=== PATIENT | male | born 1955 | race Caucasian/White ===

== ENCOUNTER 2018-03-09 11:54 | Inpatient (IN) ==
[2018-03-09] MEDS ORDERED: FUROSEMIDE 40 MG/4 ML VIAL IV ONE ×2 (12:07→13:18)
--- NOTE | 2018-03-09 12:10 | Emergency Department Note ---
SOB HPI - General Chief Complaint: Shortness of Breath/Dyspnea Stated Complaint: shortness of breath, CHF Time Seen by Provider: 03/09/18 12:07 Source: patient Mode of arrival: ambulatory Limitations: no limitations - History of Present Illness This patient returns emergency room. He was her yes day and we wanted to admit him for heart failure but he refused because he did not want to get IV Lasix without a Mayo catheter. He is now willing to be admitted if we will put a Mayo catheter in. He was at the [place] clinic this morning the [place] doctor was concerned that he should be admitted and the patient agreed to it. He continues to be short of breath. He has had approximately a 35 pound weight gain in the last couple of months. He also has a wound in his right foot that wound care as attending to. No recent chest pain. - Related Data Home Medications Medication Instructions Recorded Confirmed Ferrous Sulfate [Iron] 325 mg PO DAILY 03/08/18 03/09/18 Insulin Glargine, Human [Lantus] 60 unit SQ DAILY 03/08/18 03/09/18 Linezolid 600 mg PO DAILY 03/08/18 03/09/18 Loperamide [Imodium] 2 mg PO PRN PRN 03/08/18 03/09/18 Tamsulosin [Flomax] 0.4 mg PO HS 03/08/18 03/09/18 Torsemide 100 mg PO DAILY 03/08/18 03/09/18 Warfarin [Coumadin] 5 mg PO DAILY 03/08/18 03/09/18 metFORMIN HCL [Metformin HCl] 1,000 mg PO HS 03/08/18 03/09/18 Previous Rx's Medication Instructions Recorded doxycycline hyclate 100 mg tablet 100 mg PO BID #120 tab 03/09/18 Allergies Allergy/AdvReac Type Severity Reaction Status Date / Time No Known Drug Allergies Allergy Verified 03/09/18 11:57 Review of Systems All systems ED: reviewed and negative except as stated. Past Medical History - Past Medical History PMF Narrative: Past Surgical History (Last Reviewed 02/16/18 @ 08:23 by Mariama Larkin RN) History of total replacement of right ankle (Chronic) History of orthopedic surgery (Chronic) History of open reduction and internal fixation (ORIF) procedure (Chronic) History of partial colectomy (Chronic) Past Surgical History (Last Reviewed 02/16/18 @ 08:23 by Mariama Larkin RN) History of total replacement of right ankle (Chronic) History of orthopedic surgery (Chronic) History of open reduction and internal fixation (ORIF) procedure (Chronic) History of partial colectomy (Chronic) Family History (Last Reviewed 02/16/18 @ 08:23 by Mariama Larkin RN) Mother Bruising Bleeding Clotting disorder Father Prostate cancer Medical history: Reports: CHF, DM, hypertension Surgical history ED: Reports: other (right ankle surgery) - Social History smoking status: Never smoker Alcohol use: Reports: None Drug use: Reports: none Physical Exam Limitations: no limitations General appearance: alert Head: atraumatic Eye: Present: normal appearance ENT: normal exam Neck: Present: normal inspection Respiratory: Present: rales/crackles Cardiovascular: Present: regular rate, normal rhythm, normal heart sounds Abdominal: Present: soft. Absent: distention, tenderness Extremities: Present: pedal edema, pretibial edema Neurological: Present: alert Psychiatric: Present: normal affect, normal mood Skin: Present: warm, dry, intact Course Vital Signs Respiratory Rate 24 H 03/09/18 11:54 Pulse Rate 92 H 03/09/18 14:01 Respiratory Rate 19 03/09/18 14:01 Blood Pressure 168/96 03/09/18 14:01 Pulse Oximetry (%) 100 03/09/18 14:01 Shortness of Breath/Dyspnea - [facility] Narrative Medical decision making narrative: We gave the patient 40 mg of IV Lasix twice and then inserted a Mayo catheter. He did have some diuresis. He will be admitted to the hospital by Dr. Estrada - Lab Data Lab results reviewed: Yes I reviewed the patient's lab results. Result diagrams: 03/09/18 12:13 03/09/18 12:12 Lab Results 03/09/18 03/09/18 03/09/18 Range/Units 12:08 12:12 12:12 WBC (4.5-11.0) K/mcL RBC (4.50-5.90) M/mcL Hgb (13.5-16.5) g/dL Hct (41.0-55.0) % MCV (80.0-100.0) fL MCH (26.0-34.0) pg MCHC (31.0-36.0) g/dL RDW (11.5-14.5) % Plt Count (140-440) K/mcL MPV (7.4-10.4) fL Gran % (38.0-78.0) % Lymph % (Auto) (15.5-49.0) % [place] % (Auto) (1.0-12.0) % Eos % (Auto) (0.0-7.0) % Baso % (Auto) (0.0-2.0) % Gran # (1.8-8.0) K/mcL Lymph # (Auto) (1.5-4.8) K/mcL [place] # (Auto) (0.1-0.9) K/mcL Eos # (Auto) (0.0-0.7) K/mcL Baso # (Auto) (0.0-0.3) K/mcL PT (11.9-14.5) sec INR (0.9-1.1) Sodium 145 (133-145) mmol/L Potassium 3.7 (3.3-5.1) mmol/L Chloride 104 (96-108) mmol/L Carbon Dioxide 29 (22-30) mmol/L Anion Gap 12.0 (8-16) BUN 17 (8-23) mg/dl Creatinine 1.4 H (0.7-1.2) mg/dl GFR Calculation 53 Glucose 137 H (70-105) mg/dL Calcium 8.6 (8.6-10.4) mg/dl Total Bilirubin 0.3 (0.0-1.0) mg/dL AST 22 (0-37) U/l ALT 13 (0-40) U/l Alkaline Phosphatase 137 H (39-117) U/L Troponin T 0.02 (0-0.03) ng/ml NT-Pro-B Natriuret Pep 22244.0 H (0-125) pg/ml Total Protein 7.3 (5.9-8.4) gm/dL Albumin 3.0 L (3.2-5.2) gm/dL Globulin 4.3 H (2.2-3.7) gm/dL Albumin/Globulin Ratio 0.7 L (1.0-2.3) Procalcitonin (<0.10) ng/mL TSH 4.04 (0.27-5.01) uIU/ml Urine Color Urine Appearance Urine pH (5.0-9.0) Ur Specific [place] (1.000-1.035) Urine Protein (NEG) mg/dL Urine Glucose (UA) (NEG) mg/dL Urine Ketones (NEG) mg/dL Urine Occult Blood (<0.03) mg/dL Urine Nitrate (NEG) Urine Bilirubin (NEG) mg/dL Urine Urobilinogen (NEG) mg/dL Ur Leukocyte Esterase (NEG) /uL Urine RBC (0-1) /hpf Urine WBC (0-4) /hpf Ur Squamous Epith Cells (0-4) /hpf Urine Bacteria (0) /hpf Hyaline Casts (0-2) /lpf Urine Mucus (0) /hpf Ur Culture Indicated? 03/09/18 03/09/18 03/09/18 Range/Units 12:12 12:12 12:13 WBC 8.3 (4.5-11.0) K/mcL RBC 3.57 L (4.50-5.90) M/mcL Hgb 9.5 L (13.5-16.5) g/dL Hct 29.4 L (41.0-55.0) % MCV 82.2 (80.0-100.0) fL MCH 26.6 (26.0-34.0) pg MCHC 32.4 (31.0-36.0) g/dL RDW 18.1 H (11.5-14.5) % Plt Count 222 (140-440) K/mcL MPV 7.8 (7.4-10.4) fL Gran % 78.1 H (38.0-78.0) % Lymph % (Auto) 12.7 L (15.5-49.0) % [place] % (Auto) 7.1 (1.0-12.0) % Eos % (Auto) 1.7 (0.0-7.0) % Baso % (Auto) 0.4 (0.0-2.0) % Gran # 6.5 (1.8-8.0) K/mcL Lymph # (Auto) 1.1 L (1.5-4.8) K/mcL [place] # (Auto) 0.6 (0.1-0.9) K/mcL Eos # (Auto) 0.1 (0.0-0.7) K/mcL Baso # (Auto) 0 (0.0-0.3) K/mcL PT 29.6 H (11.9-14.5) sec INR 2.8 H (0.9-1.1) Sodium (133-145) mmol/L Potassium (3.3-5.1) mmol/L Chloride (96-108) mmol/L Carbon Dioxide (22-30) mmol/L Anion Gap (8-16) BUN (8-23) mg/dl Creatinine (0.7-1.2) mg/dl GFR Calculation Glucose (70-105) mg/dL Calcium (8.6-10.4) mg/dl Total Bilirubin (0.0-1.0) mg/dL AST (0-37) U/l ALT (0-40) U/l Alkaline Phosphatase (39-117) U/L Troponin T (0-0.03) ng/ml NT-Pro-B Natriuret Pep (0-125) pg/ml Total Protein (5.9-8.4) gm/dL Albumin (3.2-5.2) gm/dL Globulin (2.2-3.7) gm/dL Albumin/Globulin Ratio (1.0-2.3) Procalcitonin 0.11 (<0.10) ng/mL TSH (0.27-5.01) uIU/ml Urine Color Urine Appearance Urine pH (5.0-9.0) Ur Specific [place] (1.000-1.035) Urine Protein (NEG) mg/dL Urine Glucose (UA) (NEG) mg/dL Urine Ketones (NEG) mg/dL Urine Occult Blood (<0.03) mg/dL Urine Nitrate (NEG) Urine Bilirubin (NEG) mg/dL Urine Urobilinogen (NEG) mg/dL Ur Leukocyte Esterase (NEG) /uL Urine RBC (0-1) /hpf Urine WBC (0-4) /hpf Ur Squamous Epith Cells (0-4) /hpf Urine Bacteria (0) /hpf Hyaline Casts (0-2) /lpf Urine Mucus (0) /hpf Ur Culture Indicated? 03/09/18 Range/Units 12:50 WBC (4.5-11.0) K/mcL RBC (4.50-5.90) M/mcL Hgb (13.5-16.5) g/dL Hct (41.0-55.0) % MCV (80.0-100.0) fL MCH (26.0-34.0) pg MCHC (31.0-36.0) g/dL RDW (11.5-14.5) % Plt Count (140-440) K/mcL MPV (7.4-10.4) fL Gran % (38.0-78.0) % Lymph % (Auto) (15.5-49.0) % [place] % (Auto) (1.0-12.0) % Eos % (Auto) (0.0-7.0) % Baso % (Auto) (0.0-2.0) % Gran # (1.8-8.0) K/mcL Lymph # (Auto) (1.5-4.8) K/mcL [place] # (Auto) (0.1-0.9) K/mcL Eos # (Auto) (0.0-0.7) K/mcL Baso # (Auto) (0.0-0.3) K/mcL PT (11.9-14.5) sec INR (0.9-1.1) Sodium (133-145) mmol/L Potassium (3.3-5.1) mmol/L Chloride (96-108) mmol/L Carbon Dioxide (22-30) mmol/L Anion Gap (8-16) BUN (8-23) mg/dl Creatinine (0.7-1.2) mg/dl GFR Calculation Glucose (70-105) mg/dL Calcium (8.6-10.4) mg/dl Total Bilirubin (0.0-1.0) mg/dL AST (0-37) U/l ALT (0-40) U/l Alkaline Phosphatase (39-117) U/L Troponin T (0-0.03) ng/ml NT-Pro-B Natriuret Pep (0-125) pg/ml Total Protein (5.9-8.4) gm/dL Albumin (3.2-5.2) gm/dL Globulin (2.2-3.7) gm/dL Albumin/Globulin Ratio (1.0-2.3) Procalcitonin (<0.10) ng/mL TSH (0.27-5.01) uIU/ml Urine Color Yellow Urine Appearance Clear Urine pH 5.0 (5.0-9.0) Ur Specific [place] 1.025 (1.000-1.035) Urine Protein >=500 A (NEG) mg/dL Urine Glucose (UA) Negative (NEG) mg/dL Urine Ketones Neg (NEG) mg/dL Urine Occult Blood Neg (<0.03) mg/dL Urine Nitrate Neg (NEG) Urine Bilirubin Neg (NEG) mg/dL Urine Urobilinogen Neg (NEG) mg/dL Ur Leukocyte Esterase Neg (NEG) /uL Urine RBC 0 (0-1) /hpf Urine WBC 3 (0-4) /hpf Ur Squamous Epith Cells 0 (0-4) /hpf Urine Bacteria 0 (0) /hpf Hyaline Casts 13 H (0-2) /lpf Urine Mucus Few (0) /hpf Ur Culture Indicated? No - Radiology Data Radiology results reviewed: Yes I reviewed the patient's radiology results. Disposition Pt seen by [facility] [employer]/PA only: No Clinical Impression: Congestive heart failure Disposition: Xfer As Inpt ([facility]) Condition: Good Referrals: Rivera Mcintosh Jr, MD [Primary Care Provider] - Time of Disposition: 14:16
[2018-03-09 12:42] LABS: Basophils # (Auto) 0 K/mcL (0.0-0.3); Basophils % (Auto) 0.4 % (0.0-2.0); Eosinophils # (Auto) 0.1 K/mcL (0.0-0.7); Eosinophils % (Auto) 1.7 % (0.0-7.0); Granulocytes % (Auto) 78.1 % (38.0-78.0); Lymphocytes # (Auto) 1.1 K/mcL (1.5-4.8); Lymphocytes % (Auto) 12.7 % (15.5-49.0); Mean Cell Volume 82.2 fL (80.0-100.0); Mean Corpuscular HGB Conc 32.4 g/dL (31.0-36.0); Mean Corpuscular Hemoglobin 26.6 pg (26.0-34.0); Monocytes # (Auto) 0.6 K/mcL (0.1-0.9); Monocytes % (Auto) 7.1 % (1.0-12.0); Platelet Count 222 K/mcL (140-440); RBC 3.57 M/mcL (4.50-5.90); Red Cell Distribution Width 18.1 % (11.5-14.5)
--- NOTE | 2018-03-09 12:51 | XRay Report ---
HISTORY: Short of breath, congestive heart failure FINDINGS: Moderate consolidation is present in the basilar segments of both lower lobes. Superimposed upon this are small pleural effusions, left greater than right. The heart is mildly enlarged. There is pulmonary vascular congestion. Comparison with the prior exam from 03/08/18 shows no change. IMPRESSION: Congestive heart fire with superimposed atelectasis or pneumonia in both lung bases Interpreted and Authenticated by: Tony Davila 03/09/18
[2018-03-09 13:07] LABS: ALT/SGPT 13 U/l (0-40); Albumin/Globulin Ratio 0.7 (1.0-2.3); Alkaline Phosphatase 137 U/L (39-117); Blood Urea Nitrogen 17 mg/dl (8-23)
--- NOTE | 2018-03-09 13:37 | Internal Med History&Physical ---
Medical - H&P: HPI Patient information: Note initiated : 03/09/18 at 1:34 pm Service Date, if different from initiated Date: [] Patient: Florencio Grace a 62 y/o M admitted on for shortness of breath, CHF. Chief Complaint: [] History of present illness: Mr. Grace is a 62 year old M with history of diabetes, congestive heart failure hypertension morbid obesity right lower extremity wound presents to the emergency room 2 days in a row for evaluation of shortness of breath. The patient was here yesterday and the initial plan was to admit him for congestive heart failure however the patient refused. The patient was therefore follow-up with his PCP again today and he was sent back to the emergency room because of severe shortness of breath. The patient has been having shortness of breath that has been getting worse for the last 2 weeks. The patient notes that minimal activity makes him short of breath. He has gained approximately 35 pounds over the last 3 months. He attributes his weight gain to noncompliance with his oral diuretic medications. As well as increased oral intake. His lack of ability to exercise. The patient denies any other acute complaints or concerns. He has some cough which is worse when he lies down. Clear cough no hemoptysis. The patient denies any chest pain, no palpitations no headache no dizziness no GI complaints no complaints. He has significant edema in his lower extremities. The patient has followed with wound care as well as infectious disease for management of his chronic lower extremity wound. He has completed oral antibiotic course and was seen by wound care physician yesterday in the emergency room. Patient has been advised to take tetracycline for now. In the emergency room patient was afebrile heart rate 105 blood pressure 167/83 saturating 99% on room air. Hemoglobin 9.5 WBC count 8.3 platelets 222 sodium 145 potassium 3.7 bicarbonate 29 creatinine 1.4 glucose 137 BNP is 11,418 troponin negative. EKG shows sinus rhythm, old anterior inferior infarct, QS wave in V1 to V5. Left axis deviation. Chest x-ray shows bilateral atelectasis versus pneumonia congestive heart failure cardiomegaly The patient noted he has had an echocardiogram done at [facility] in the last 2 months. We will try to obtain a copy Patient will be admitted to the hospital for further management All systems: reviewed and no additional remarkable complaints except as stated ( as per hpi rest neg) Medical - H&P: PMH Medical history: Medical History (Last Reviewed 02/16/18 @ 08:23 by Mariama Larkin RN) CKD (chronic kidney disease) (Chronic) Anemia (Chronic) Pulmonary embolism (Chronic) Heart failure (Chronic) Hypertension (Chronic) Diabetes (Chronic) Colon cancer (Chronic) SOB (shortness of breath) (Chronic) Ankle fracture (Chronic) Surgical history: Past Surgical History (Last Reviewed 02/16/18 @ 08:23 by Mariama Larkin RN) History of total replacement of right ankle (Chronic) History of orthopedic surgery (Chronic) History of open reduction and internal fixation (ORIF) procedure (Chronic) History of partial colectomy (Chronic) Pertinent family history: Family History (Last Reviewed 02/16/18 @ 08:23 by Mariama Larkin RN) Mother Bruising Bleeding Clotting disorder Father Prostate cancer Medical - H&P: Meds Home Medications Medication Instructions Recorded Confirmed Type Ferrous Sulfate [Iron] 325 mg PO DAILY 03/08/18 03/09/18 History Insulin Glargine, Human [Lantus] 60 unit SQ DAILY 03/08/18 03/09/18 History Linezolid 600 mg PO DAILY 03/08/18 03/09/18 History Loperamide [Imodium] 2 mg PO PRN PRN 03/08/18 03/09/18 History Tamsulosin [Flomax] 0.4 mg PO HS 03/08/18 03/09/18 History Torsemide 100 mg PO DAILY 03/08/18 03/09/18 History Warfarin [Coumadin] 5 mg PO DAILY 03/08/18 03/09/18 History metFORMIN HCL [Metformin HCl] 1,000 mg PO HS 03/08/18 03/09/18 History doxycycline hyclate 100 mg tablet 100 mg PO BID #120 tab 03/09/18 03/09/18 Rx Allergies Allergy/AdvReac Type Severity Reaction Status Date / Time No Known Drug Allergies Allergy Verified 03/09/18 11:57 Medical - H&P: Exam - Constitutional Vitals: Pulse Resp BP Pulse Ox 99 H 25 H 161/95 99 03/09/18 12:47 03/09/18 12:47 03/09/18 12:47 03/09/18 12:47 Exam: GENERAL: The patient is a well-developed, well-nourished in no apparent distress. Is alert and oriented x3. VITAL SIGNS: Reviewed and as noted elsewhere. HEENT: Head is normocephalic and atraumatic. Extraocular muscles are intact. right eye has subconjunctival hemorrhage. Nares appeared normal. Mouth appears any without lesions. Mucous membranes are moist. NECK: Normal to inspection, Supple, No lymphadenopathy or thyromegaly. LUNGS: Air entry equal on both sides, rima exp wheezing, bibasilar crackles present, no rhonchi noted. No accessory muscles of respiration HEART: tachycardic rate and rhythm normal, S1 and S2 heard, no Gallop, S3 or Rub Noted, No Gross murmur heard. ABDOMEN: Soft, nontender, and nondistended, large pannus, Positive bowel sounds. No hepatosplenomegaly was noted. EXTREMITIES: No cyanosis, clubbing, rash, edema ++++, Right lower extremity in bandage. NEUROLOGIC: Cranial nerves II through XII are grossly intact. Motor and Sensory System Grossly Intact PSYCHIATRIC: Normal affect, Normal Mood. Appropriate Behavior. SKIN: No ulceration or wounds noted, No jaundice, No rash noted. Medical - H&P: Reslt - Labs CBC & Chem 7: 03/09/18 12:13 03/09/18 12:12 Labs: Short CBC 03/09/18 Range/Units 12:13 WBC 8.3 (4.5-11.0) K/mcL Hgb 9.5 L (13.5-16.5) g/dL Hct 29.4 L (41.0-55.0) % Plt Count 222 (140-440) K/mcL BMP 03/09/18 12:12 Sodium 145 Potassium 3.7 Chloride 104 Carbon Dioxide 29 BUN 17 Creatinine 1.4 H Glucose 137 H Calcium 8.6 Cardiac Enzymes 03/09/18 Range/Units 12:12 Troponin T 0.02 (0-0.03) ng/ml Liver Function 03/09/18 Range/Units 12:12 Total Bilirubin 0.3 (0.0-1.0) mg/dL AST 22 (0-37) U/l ALT 13 (0-40) U/l Alkaline Phosphatase 137 H (39-117) U/L Albumin 3.0 L (3.2-5.2) gm/dL Medical - H&P: A/P - Narrative A/P Narrative: A/P Acute congestive heart failure (not sure if systolic or diastolic, no echo available) Acute on Chronic renal failure Diabetes mellitus HLD Morbid Obesity H/o pulmonary embolus Right lower extremity wound Plan admit to tele status, will need more than 2 [place] stay to diurese him properly R/o PNA, check procalcitonin, clinically pt likely has atelectasis. IV lasix 60 q8 for now. pt renal failure appears cardio renal Lantus and ssin insulin for glucose control check INR, continue Coumadin per pharmacy continue antibiotics and consult wound care. DVT on Coumadin Cardiac, carb consistent diet. Full code. Social History - Tobacco smoking status: Never smoker - Alcohol alcohol intake frequency: does not drink - Substance use substance use type: does not use
[2018-03-09 13:38] LABS: Appearance,Urine CLEAR; Bacteria,Urine 0 /hpf (0); Bilirubin,Urine NEG (NEG); Color,Urine YELLOW; Glucose,Urine (UA) NEGATIVE (NEG); Leukocyte Esterase,Urine NEG /uL (NEG); Mucus,Urine FEW /hpf (0); Protein,Urine >=500 mg/dL (NEG); Specific Gravity,Urine 1.025 (1.000-1.035); Urine Blood NEG mg/dL (<0.03); Urine Hyaline Cast 13 /lpf (0-2); Urine RBC 0 /hpf (0-1); Urine Squamous Epithelial Cell 0 /hpf (0-4); Urine WBC 3 /hpf (0-4); Urobilinogen,Urine NEG (NEG)
[2018-03-09] MEDS ORDERED: NALOXONE HCL 0.4 MG/ML VIAL IV PRN (14:48)
[2018-03-09] MEDS ORDERED: DEXTROSE 50% 50 ML VIAL IV PRN (14:48)
[2018-03-09] MEDS ORDERED: LOPERAMIDE 2 MG CAPSULE PO PRN (14:48)
[2018-03-09] MEDS ORDERED: DEXTROSE 31 GM ORAL.SUSP PO PRN (14:48)
[2018-03-09] MEDS: IPRATROPIUM/ALBUTEROL 3 ML AMPUL.NEB NEB SCH ×3 (15:10→22:53)
[2018-03-09] MEDS: FUROSEMIDE 100 MG/10 ML VIAL IV SCH ×2 (15:45→21:46)
[2018-03-09] MEDS: 0.9 % SODIUM CHLORIDE 10 ML SYRINGE IV SCH ×2 (15:47→21:50)
[2018-03-09] MEDS ORDERED: WARFARIN 2.5 MG TABLET PO ONE (16:00)
[2018-03-09] MEDS ORDERED: hydrALAZINE 20 MG/ML VIAL IV PRN (16:02)
[2018-03-09] MEDS ORDERED: guaiFENesin/DEXTROMETHORPHAN ORAL SOL PO PRN (17:33)
[2018-03-09] MEDS: INSULIN LISPRO 1 UNIT/0.01 ML UNIT SQ SCH ×2 (17:54→21:47)
--- NOTE | 2018-03-09 18:39 | General Surgery Consult Note ---
History of Present Illness Patient information: Note initiated : 03/09/18 at 6:38 pm Service Date, if different from initiated Date: [] Patient: Florencio Grace 62 y/o M admitted on 03/09/18 for SOB, CHF. Chief Complaint: [] Consult date: 03/09/18 Requesting physician: Byron Rosales (review and follow-up wound care right lower leg) History of present illness: Patient is a 62-year-old morbid obese gentleman with multiple comorbid medical problems mainly cardiac, endocrine and systemic etiologies. He was seen in the wound care clinic for an open wound right lower anterior leg with surrounding the periwound erythema, lymphedema and cellulitis. Patient has a history of ankle joint replacement in the past. He has completed the prolonged courses of intravenous and oral antibiotics and is now to be maintained on long-term suppression oral antibiotic regimen. No further surgical intervention is contemplated from the orthopedic service at this time. Patient has had a possible history of noncompliance with taking medications for his comorbid medical conditions. He was seen in the emergency room and recommended admission to the hospital but had declined at that time. He has since then changed his mind and is now admitted to ICU for optimizing medical conditions, adjusting his medications and continuing with ongoing wound care. Medications and Allergies Home Medications Medication Instructions Recorded Confirmed Type Ferrous Sulfate [Iron] 325 mg PO DAILY 03/08/18 03/09/18 History Insulin Glargine, Human [Lantus] 60 unit SQ DAILY 03/08/18 03/09/18 History Linezolid 600 mg PO DAILY 03/08/18 03/09/18 History Loperamide [Imodium] 2 mg PO PRN PRN 03/08/18 03/09/18 History Tamsulosin [Flomax] 0.4 mg PO HS 03/08/18 03/09/18 History Torsemide 100 mg PO DAILY 03/08/18 03/09/18 History Warfarin [Coumadin] 5 mg PO DAILY 03/08/18 03/09/18 History metFORMIN HCL [Metformin HCl] 1,000 mg PO HS 03/08/18 03/09/18 History Ergocalciferol (Vitamin D2) 50,000 unit PO 3XW 03/09/18 03/09/18 History [Vitamin D2] Isosorbide Mononitrate [Imdur] 60 mg PO DAILY 03/09/18 03/09/18 History Oxymetazoline HCl [Nasal [place]] 3 spray NS BIDP PRN 03/09/18 03/09/18 History Valsartan 320 mg PO DAILY 03/09/18 03/09/18 History doxycycline hyclate 100 mg tablet 100 mg PO BID #120 tab 03/09/18 03/09/18 Rx Allergies Allergy/AdvReac Type Severity Reaction Status Date / Time No Known Drug Allergies Allergy Verified 03/09/18 11:57 Exam Temp Pulse Resp BP Pulse Ox 98.7 F 94 H 24 H 171/82 99 03/09/18 14:48 03/09/18 16:00 03/09/18 16:00 03/09/18 16:00 03/09/18 15:21 - General physical appearance obese (super morbid obese) - Eyes PERRL, normal ocular movement - ENT normal pinna, normal nares, normal mucosa, no congestion - Head Head exam IM: Present: atraumatic, normal inspection, normocephalic - Neck no masses, no bruits, no venous distension - Cardiovascular Cardiovascular exam IM: Present: irregular rhythm - Respiratory absent breath sounds: bilateral (decreased air entry at lung bases. fine crackles) - Abdomen Abdomen: Present: soft, non tender, bowel sounds (mild epigastric wall and Re: Due to abdominal bleeding and tachypnea) - Integumentary Present: other (lymphedema of both lower extremities right more than left. Chronic hyperpigmentation with dermatitis right lower medial leg. Open wound at the site of surgical scar. Granulating base. No evidence of crepitation. No purulence. No warmth. ) - Neurologic Present: other (peripheral neuropathy. No gross focal neurologic deficits.) - Musculoskeletal Present: other (limited mobility. Generalized osteoarthritis measured joints) - Psychiatric Present: oriented to time, oriented to person, oriented to place, speech is normal, memory intact Results - Labs 03/10/18 06:28 03/10/18 06:28 Abnormal lab results 03/09/18 03/09/18 03/09/18 Range/Units 12:12 12:12 12:13 RBC 3.57 L (4.50-5.90) M/mcL Hgb 9.5 L (13.5-16.5) g/dL Hct 29.4 L (41.0-55.0) % RDW 18.1 H (11.5-14.5) % Gran % 78.1 H (38.0-78.0) % Lymph % (Auto) 12.7 L (15.5-49.0) % Lymph # (Auto) 1.1 L (1.5-4.8) K/mcL PT 29.6 H (11.9-14.5) sec INR 2.8 H (0.9-1.1) Creatinine 1.4 H (0.7-1.2) mg/dl Glucose 137 H (70-105) mg/dL Alkaline Phosphatase 137 H (39-117) U/L NT-Pro-B Natriuret Pep 57498.0 H (0-125) pg/ml Albumin 3.0 L (3.2-5.2) gm/dL Globulin 4.3 H (2.2-3.7) gm/dL Albumin/Globulin Ratio 0.7 L (1.0-2.3) Urine Protein (NEG) mg/dL Hyaline Casts (0-2) /lpf 03/09/18 Range/Units 12:50 RBC (4.50-5.90) M/mcL Hgb (13.5-16.5) g/dL Hct (41.0-55.0) % RDW (11.5-14.5) % Gran % (38.0-78.0) % Lymph % (Auto) (15.5-49.0) % Lymph # (Auto) (1.5-4.8) K/mcL PT (11.9-14.5) sec INR (0.9-1.1) Creatinine (0.7-1.2) mg/dl Glucose (70-105) mg/dL Alkaline Phosphatase (39-117) U/L NT-Pro-B Natriuret Pep (0-125) pg/ml Albumin (3.2-5.2) gm/dL Globulin (2.2-3.7) gm/dL Albumin/Globulin Ratio (1.0-2.3) Urine Protein >=500 A (NEG) mg/dL Hyaline Casts 13 H (0-2) /lpf Diabetes panel 03/09/18 Range/Units 12:12 Sodium 145 (133-145) mmol/L Potassium 3.7 (3.3-5.1) mmol/L Chloride 104 (96-108) mmol/L Carbon Dioxide 29 (22-30) mmol/L BUN 17 (8-23) mg/dl Creatinine 1.4 H (0.7-1.2) mg/dl Glucose 137 H (70-105) mg/dL Calcium 8.6 (8.6-10.4) mg/dl AST 22 (0-37) U/l ALT 13 (0-40) U/l Alkaline Phosphatase 137 H (39-117) U/L Total Protein 7.3 (5.9-8.4) gm/dL Albumin 3.0 L (3.2-5.2) gm/dL Thyroid panel 03/09/18 Range/Units 12:08 TSH 4.04 (0.27-5.01) uIU/ml Calcium panel 03/09/18 Range/Units 12:12 Calcium 8.6 (8.6-10.4) mg/dl Albumin 3.0 L (3.2-5.2) gm/dL Pituitary panel 03/09/18 03/09/18 Range/Units 12:08 12:12 Sodium 145 (133-145) mmol/L Potassium 3.7 (3.3-5.1) mmol/L Chloride 104 (96-108) mmol/L Carbon Dioxide 29 (22-30) mmol/L BUN 17 (8-23) mg/dl Creatinine 1.4 H (0.7-1.2) mg/dl Glucose 137 H (70-105) mg/dL Calcium 8.6 (8.6-10.4) mg/dl TSH 4.04 (0.27-5.01) uIU/ml Adrenal panel 03/09/18 Range/Units 12:12 Sodium 145 (133-145) mmol/L Potassium 3.7 (3.3-5.1) mmol/L Chloride 104 (96-108) mmol/L Carbon Dioxide 29 (22-30) mmol/L BUN 17 (8-23) mg/dl Creatinine 1.4 H (0.7-1.2) mg/dl Glucose 137 H (70-105) mg/dL Calcium 8.6 (8.6-10.4) mg/dl Total Bilirubin 0.3 (0.0-1.0) mg/dL AST 22 (0-37) U/l ALT 13 (0-40) U/l Alkaline Phosphatase 137 H (39-117) U/L Total Protein 7.3 (5.9-8.4) gm/dL Albumin 3.0 L (3.2-5.2) gm/dL All other labs normal. Assessment and Plan (1) Dermatitis of lower extremity Assessment: Chronic them otitis stasis post phlebitis changes with lymphedema right lower leg medial aspect more than left. Anterior lower leg open wound with granulating base at the site of previous surgical scar. No exposed hardware or bone in the wound base. Plan: Conservative wound care as ordered. Will follow this patient along with you while she is in the hospital. Plan discussed with Dr. ROSALES, hospitalist physician. Status: Chronic Priority: Low
[2018-03-09] MEDS: DOXYCYCLINE HYCLATE 100 MG TABLET.ORL PO SCH (21:47)
[2018-03-09] MEDS: TAMSULOSIN 0.4 MG CAPSULE PO SCH (21:47)
[2018-03-10] MEDS ORDERED: MAGNESIUM SULFATE 2 GM/50 ML BAG IV ONE ×2 (01:19→01:37)
[2018-03-10] MEDS ORDERED: POTASSIUM CHLORIDE 20 MEQ TABLET PO ONE (01:20)
[2018-03-10] MEDS ORDERED: POTASSIUM CHLORIDE 40 MEQ in DEXTROSE 5% IN WATER 500 ML IV ONE (01:20)
[2018-03-10] MEDS ORDERED: POTASSIUM CHLORIDE 20 MEQ/10 ML VIAL IV ONE (01:37)
[2018-03-10] MEDS ORDERED: POTASSIUM CHLORIDE 10 MEQ TABLET PO ONE (01:37)
[2018-03-10] MEDS: OXYMETAZOLINE 1 SPRAY BOTTLE NAS PRN ×2 (02:08→07:34)
[2018-03-10] MEDS: IPRATROPIUM/ALBUTEROL 3 ML AMPUL.NEB NEB SCH ×3 (03:53→10:48)
[2018-03-10] MEDS: FUROSEMIDE 100 MG/10 ML VIAL IV SCH ×3 (06:14→21:30)
[2018-03-10] MEDS: 0.9 % SODIUM CHLORIDE 10 ML SYRINGE IV SCH ×3 (06:15→21:31)
[2018-03-10] MEDS: INSULIN LISPRO 1 UNIT/0.01 ML UNIT SQ SCH ×4 (07:13→20:34)
[2018-03-10 07:15] LABS: Basophils # (Auto) 0 K/mcL (0.0-0.3); Basophils % (Auto) 0.3 % (0.0-2.0); Eosinophils # (Auto) 0.1 K/mcL (0.0-0.7); Eosinophils % (Auto) 1.9 % (0.0-7.0); Granulocytes % (Auto) 71.4 % (38.0-78.0); Lymphocytes # (Auto) 1.1 K/mcL (1.5-4.8); Lymphocytes % (Auto) 17.2 % (15.5-49.0); Mean Cell Volume 82.5 fL (80.0-100.0); Mean Corpuscular HGB Conc 32.6 g/dL (31.0-36.0); Mean Corpuscular Hemoglobin 26.9 pg (26.0-34.0); Monocytes # (Auto) 0.6 K/mcL (0.1-0.9); Monocytes % (Auto) 9.2 % (1.0-12.0); Platelet Count 182 K/mcL (140-440); RBC 3.41 M/mcL (4.50-5.90); Red Cell Distribution Width 17.9 % (11.5-14.5)
[2018-03-10 07:33] LABS: ALT/SGPT 11 U/l (0-40); Albumin 2.8 gm/dL (3.2-5.2); Albumin/Globulin Ratio 0.7 (1.0-2.3); Alkaline Phosphatase 117 U/L (39-117); Bilirubin,Direct < 0.2 mg/dL (0.0-0.3); Blood Urea Nitrogen 15 mg/dl (8-23); Gamma Glutamyl Transpeptidase 41 U/L (8-61); Uric Acid 7.9 mg/dL (2.5-8.0)
[2018-03-10] MEDS: FERROUS SULFATE 325 MG TABLET PO SCH (08:27)
[2018-03-10] MEDS: DOXYCYCLINE HYCLATE 100 MG TABLET.ORL PO SCH ×2 (08:27→20:27)
[2018-03-10] MEDS ORDERED: PNEUMOCOCCAL 23-VAL P-SAC VAC 0.5 ML VIAL IM ONE (10:00)
[2018-03-10] MEDS: ONDANSETRON 4 MG/2 ML VIAL IV PRN (12:20)
[2018-03-10] MEDS ORDERED: METOPROLOL TARTRATE 25 MG TABLET PO ONE (12:28)
--- NOTE | 2018-03-10 12:37 | Internal Med Progress Note ---
Medical - PN: Subj Patient information: Note initiated : 03/10/18 at 12:29 pm Service Date, if different from initiated Date: [] Patient: Florencio Grace a 62 y/o M admitted on 03/09/18 for SOB, CHF. Chief Complaint: [] Interval history: Mr. Grace is a 62 year old M with history of diabetes, congestive heart failure hypertension morbid obesity right lower extremity wound presents to the emergency room 2 days in a row for evaluation of shortness of breath. The patient was here yesterday and the initial plan was to admit him for congestive heart failure however the patient refused. The patient was therefore follow-up with his PCP again today and he was sent back to the emergency room because of severe shortness of breath. The patient has been having shortness of breath that has been getting worse for the last 2 weeks. The patient notes that minimal activity makes him short of breath. He has gained approximately 35 pounds over the last 3 months. He attributes his weight gain to noncompliance with his oral diuretic medications. As well as increased oral intake. His lack of ability to exercise. The patient denies any other acute complaints or concerns. He has some cough which is worse when he lies down. Clear cough no hemoptysis. The patient denies any chest pain, no palpitations no headache no dizziness no GI complaints no complaints. He has significant edema in his lower extremities. The patient has followed with wound care as well as infectious disease for management of his chronic lower extremity wound. He has completed oral antibiotic course and was seen by wound care physician yesterday in the emergency room. Patient has been advised to take tetracycline for now. In the emergency room patient was afebrile heart rate 105 blood pressure 167/83 saturating 99% on room air. Hemoglobin 9.5 WBC count 8.3 platelets 222 sodium 145 potassium 3.7 bicarbonate 29 creatinine 1.4 glucose 137 BNP is 11,418 troponin negative. EKG shows sinus rhythm, old anterior inferior infarct, QS wave in V1 to V5. Left axis deviation. Chest x-ray shows bilateral atelectasis versus pneumonia congestive heart failure cardiomegaly The patient noted he has had an echocardiogram done at [facility] in the last 2 months. We will try to obtain a copy Patient will be admitted to the hospital for further management 03/10 Patient's and examined no acute overnight events. All medications reviewed. Patient is not sure why he is not on a beta-medhat. Echocardiogram done recently at [facility] I believe on 02/02/2018 reviewed. Ejection fraction was 45%. Unable to determine diastolic dysfunction. Patient has responded very well to IV diuresis. -5500 mL. Discussed with the patient intent to start patient on beta-blockers patient verbalized understanding and agreeable to treatment. labs stable, creat slightly worse at 1.5 Pertinent ROS: Denies headache, dizziness Denies chest pain, palpitations Denies cough , shortness of breath much improved Denies abdominal pain, nausea or vomiting. - Constitutional Vitals: Vital Signs Temp Pulse Resp BP Pulse Ox 98.8 F 77 20 161/73 93 03/10/18 06:56 03/10/18 10:48 03/10/18 10:48 03/10/18 06:56 03/10/18 08:00 Period Temp Pulse Resp BP Sys/Bush Pulse Ox Last 24 Hr 98.7 F-100.1 F 71-102 14-26 115-181/73-116 93-100 Intake and Output 03/09/18 03/10/18 03/10/18 21:59 05:59 13:59 Intake Total 360 / 360 290 / 290 Output Total 4704 / 4704 1325 / 1325 Balance -4344 / -4344 -1035 / -1035 Weight 352 lb 354 lb 3.2 oz Intake & Output: Intake & Output 03/09/18 03/10/18 03/10/18 21:59 05:59 13:59 Intake Total 360 / 360 290 / 290 Output Total 4704 / 4704 1325 / 1325 Balance -4344 / -4344 -1035 / -1035 Weight 352 lb 354 lb 3.2 oz Intake: IV 50 / 50 Oral 360 / 360 240 / 240 Output: Urine Catheter Amount 4704 / 4704 1325 / 1325 Uretheral (Mayo) 979 / 979 Other: Meal Lunch Percent of Meal Consumed 75% Feeding Ability Independent Urine Appearance Clear Uretheral (Mayo) Clear Clear Urine Color Pale Uretheral (Mayo) Pale Dark Mary Urine Odor Normal Uretheral (Mayo) Normal Stool Size Moderate Stool Color Brown Stool Consistency Loose # Bowel Movements 1 Exam: Constitutional; Afebrile, cooperative, alert, not in distress. Respiratory system: Air Entry equal on both sides, minimal crackles at bases, no wheezing, no rhonchi. (wheezing resolved) CVS- Rate rhythm regular, S1,S2 heard, no gallop, no rub. 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 MARLI lower extremity edema upto the thigh Medical - PN: Obj Da - Labs CBC & Chem 7: 03/10/18 06:28 03/10/18 06:28 Labs: Abnormal Lab Results 03/10/18 03/10/18 03/10/18 06:28 06:28 06:28 RBC 3.41 L Hgb 9.2 L Hct 28.1 L RDW 17.9 H Gran % Lymph % (Auto) Lymph # (Auto) 1.1 L PT 28.1 H INR 2.6 H Carbon Dioxide 31 H Creatinine 1.5 H Glucose 184 H Calcium 8.3 L Alkaline Phosphatase NT-Pro-B Natriuret Pep Albumin 2.8 L Globulin 4.1 H Albumin/Globulin Ratio 0.7 L Urine Protein Hyaline Casts 03/09/18 03/09/18 03/09/18 12:50 12:13 12:12 RBC 3.57 L Hgb 9.5 L Hct 29.4 L RDW 18.1 H Gran % 78.1 H Lymph % (Auto) 12.7 L Lymph # (Auto) 1.1 L PT 29.6 H INR 2.8 H Carbon Dioxide Creatinine Glucose Calcium Alkaline Phosphatase NT-Pro-B Natriuret Pep Albumin Globulin Albumin/Globulin Ratio Urine Protein >=500 A Hyaline Casts 13 H 03/09/18 12:12 RBC Hgb Hct RDW Gran % Lymph % (Auto) Lymph # (Auto) PT INR Carbon Dioxide Creatinine 1.4 H Glucose 137 H Calcium Alkaline Phosphatase 137 H NT-Pro-B Natriuret Pep 59228.0 H Albumin 3.0 L Globulin 4.3 H Albumin/Globulin Ratio 0.7 L Urine Protein Hyaline Casts Meds: Medications Acetaminophen (Tylenol) 650 mg PO Q6HP PRN PRN Reason: PAIN/FEVER > 101 Albuterol/Ipratropium (Duoneb) 3 ml NEB Q4HRT [facility] Last Admin: 03/10/18 10:48 Dose: Not Given Dextrose (Dextrose 50%) 0 ml IV UD PRN PRN Reason: Hypoglycemia Diagnostic Test (Pha) (Accu-Chek) 1 each FS [facility] Last Admin: 03/10/18 11:56 Dose: 1 each Doxycycline Hyclate (Doxycycline Hyclate) 100 mg PO BID [facility] Last Admin: 03/10/18 08:27 Dose: 100 mg Ferrous Sulfate (Ferrous Sulfate) 325 mg PO DAILY [facility] Last Admin: 03/10/18 08:27 Dose: 325 mg Furosemide (Lasix) 60 mg IV Q8 [facility] Last Admin: 03/10/18 06:14 Dose: 60 mg Glucose (Insta-Glucose) 15 gm PO PRN PRN PRN Reason: Hypoglycemia Guaifenesin (Robitussin Dm) 10 ml PO Q4HP PRN PRN Reason: Cough Hydralazine HCl (Apresoline) 10 mg IV Q4HP PRN PRN Reason: Hypertension Insulin Glargine (Lantus) 60 unit SQ [facility] Insulin Human Lispro (Humalog) 0 unit SQ [facility]; Protocol Last Admin: 03/10/18 11:56 Dose: 6 unit Loperamide HCl (Imodium) 2 mg PO PRN PRN PRN Reason: Diarrhea Last Admin: 03/10/18 12:20 Dose: 2 mg Metoprolol Succinate (Toprol Xl) 50 mg PO [facility] Metoprolol Tartrate (Lopressor) 25 mg PO ONCE ONE Stop: 03/10/18 12:29 Naloxone HCl (Narcan) 0.1 mg IV Q2MIN PRN PRN Reason: Opiate Reversal Ondansetron HCl (Zofran) 4 mg IV Q4HP PRN PRN Reason: Nausea And Vomiting Last Admin: 03/10/18 12:20 Dose: 4 mg Oxymetazoline HCl (Afrin) 3 spray IRIS BIDP PRN PRN Reason: Nasal Congestion Last Admin: 03/10/18 07:34 Dose: 3 puff Sodium Chloride (Saline Flush) 10 ml IV Q8 [facility] Last Admin: 03/10/18 06:15 Dose: 10 ml Tamsulosin HCl (Flomax) 0.4 mg PO [facility] Last Admin: 03/09/18 21:47 Dose: 0.4 mg Warfarin Sodium (Coumadin Per Pharmacy) 1 order PO [facility] Medical - PN: A/P - Time Spent With Patient Total time spent is greater than 50% in coordination of care (as documented) at patient's floor/unit and/or counseling patient: - Narrative A/P Narrative: A/P Acute congestive heart failure (not sure if systolic or diastolic, no echo available) Acute on Chronic renal failure Diabetes mellitus HLD Morbid Obesity H/o pulmonary embolus Right lower extremity wound Plan monitor on tele , start on metoprolol HOld ARB (home dose for renal dysnfunction), hold isosorbide, as not sure how he will respond on metoprolol and will likely discontinue same at d ischarge R/o PNA, clincally no e/o infection, procalcitoni is 0.11 IV lasix 60 q8 for now. responding very well pt renal failure appears cardio renal, creat slightly worse, monitor Lantus and ssin insulin for glucose control trend INR, continue Coumadin per pharmacy continue antibiotics and consult wound care. DVT on Coumadin Cardiac, carb consistent diet. Full code. Medical - PN: Qual - VTE Deep Vein Thrombosis/Pulmonary Embolism Present on Admission: Yes
[2018-03-10] MEDS ORDERED: IPRATROPIUM/ALBUTEROL 3 ML AMPUL.NEB NEB PRN (12:41)
[2018-03-10] MEDS ORDERED: WARFARIN 5 MG TABLET PO ONE (14:00)
--- NOTE | 2018-03-10 15:39 | General Surgery Progress Note ---
Subjective Narrative: Note initiated : 03/10/18 at 3:36 pm Service Date, if different from initiated Date: [] Patient: Florencio Grace 62 y/o M admitted on 03/09/18 for SOB, CHF. Chief Complaint: [] Patient seen progress reviewed with Dr. Estrada, hospitalist physician. He is being diuresed at this time and his congestive cardiac failure is treated by the hospitalist physician. Right lower leg wound is stable no acute interval changes. Objective Temp Pulse Resp BP Pulse Ox 98.0 F 83 20 164/70 95 03/10/18 11:51 03/10/18 12:00 03/10/18 10:48 03/10/18 11:51 03/10/18 12:00 Afebrile vital signs stable. Focused local examination right leg; stable findings gradual resolution of dermatitis with positive management and elevation. - Additional Data Intake & Output - Last 24 hours: Intake & Output 03/08/18 03/09/18 03/10/18 03/11/18 05:59 05:59 05:59 05:59 Intake Total 650 / 650 600 / 600 Output Total 6029 / 6029 Balance -5379 / -5379 600 / 600 Weight 354 lb 3.2 oz 354 lb 3.2 oz - Labs 03/10/18 06:28 03/10/18 06:28 Diabetes panel 03/10/18 Range/Units 06:28 Sodium 142 (133-145) mmol/L Potassium 4.1 (3.3-5.1) mmol/L Chloride 101 (96-108) mmol/L Carbon Dioxide 31 H (22-30) mmol/L BUN 15 (8-23) mg/dl Creatinine 1.5 H (0.7-1.2) mg/dl Glucose 184 H (70-105) mg/dL Calcium 8.3 L (8.6-10.4) mg/dl AST 19 (0-37) U/l ALT 11 (0-40) U/l Alkaline Phosphatase 117 (39-117) U/L Total Protein 6.9 (5.9-8.4) gm/dL Albumin 2.8 L (3.2-5.2) gm/dL Triglycerides 81 (<150) mg/dl Calcium panel 03/10/18 Range/Units 06:28 Calcium 8.3 L (8.6-10.4) mg/dl Phosphorus 4.0 (2.7-4.5) mg/dL Albumin 2.8 L (3.2-5.2) gm/dL Pituitary panel 03/10/18 Range/Units 06:28 Sodium 142 (133-145) mmol/L Potassium 4.1 (3.3-5.1) mmol/L Chloride 101 (96-108) mmol/L Carbon Dioxide 31 H (22-30) mmol/L BUN 15 (8-23) mg/dl Creatinine 1.5 H (0.7-1.2) mg/dl Glucose 184 H (70-105) mg/dL Calcium 8.3 L (8.6-10.4) mg/dl Adrenal panel 03/10/18 Range/Units 06:28 Sodium 142 (133-145) mmol/L Potassium 4.1 (3.3-5.1) mmol/L Chloride 101 (96-108) mmol/L Carbon Dioxide 31 H (22-30) mmol/L BUN 15 (8-23) mg/dl Creatinine 1.5 H (0.7-1.2) mg/dl Glucose 184 H (70-105) mg/dL Calcium 8.3 L (8.6-10.4) mg/dl Total Bilirubin 0.3 (0.0-1.0) mg/dL AST 19 (0-37) U/l ALT 11 (0-40) U/l Alkaline Phosphatase 117 (39-117) U/L Total Protein 6.9 (5.9-8.4) gm/dL Albumin 2.8 L (3.2-5.2) gm/dL Assessment and Plan (1) Dermatitis of lower extremity Status: Chronic Current Visit: Yes - Narrative A/P Narrative: Assessment: Stable from wound care upon review. No acute changes. Following a wall lesion of his condition and medical management, nothing to add. Plan: Continue current wound care. Will follow this patient along with hospitalist physician. - Time Spent With Patient Total time spent is greater than 50% in coordination of care (as documented) at patient's floor/unit and/or counseling patient: less than 15 minutes
[2018-03-10] MEDS ORDERED: POTASSIUM CHLORIDE 20 MEQ PACKET PO ONE (18:00)
[2018-03-10] MEDS: TAMSULOSIN 0.4 MG CAPSULE PO SCH (20:27)
[2018-03-10] MEDS: METOPROLOL SUCCINATE 50 MG TAB.XL.24H PO SCH (20:27)
[2018-03-10] MEDS: INSULIN GLARGINE, HUMAN 1 UNIT/0.01 ML SQ SCH (20:34)
[2018-03-10] MEDS ORDERED: CHLOROTHIAZIDE SODIUM 500 MG VIAL IV ONE (21:30)
[2018-03-11 04:47] LABS: Basophils # (Auto) 0 K/mcL (0.0-0.3); Basophils % (Auto) 0.6 % (0.0-2.0); Eosinophils # (Auto) 0.2 K/mcL (0.0-0.7); Eosinophils % (Auto) 2.3 % (0.0-7.0); Granulocytes % (Auto) 71.9 % (38.0-78.0); Lymphocytes # (Auto) 1.2 K/mcL (1.5-4.8); Lymphocytes % (Auto) 15.9 % (15.5-49.0); Mean Cell Volume 82.6 fL (80.0-100.0); Mean Corpuscular HGB Conc 31.3 g/dL (31.0-36.0); Mean Corpuscular Hemoglobin 25.8 pg (26.0-34.0); Monocytes # (Auto) 0.7 K/mcL (0.1-0.9); Monocytes % (Auto) 9.3 % (1.0-12.0); Platelet Count 186 K/mcL (140-440); RBC 3.25 M/mcL (4.50-5.90); Red Cell Distribution Width 17.7 % (11.5-14.5)
[2018-03-11 04:58] LABS: ALT/SGPT 10 U/l (0-40); Albumin 2.3 gm/dL (3.2-5.2); Albumin/Globulin Ratio 0.5 (1.0-2.3); Alkaline Phosphatase 111 U/L (39-117); Bilirubin,Direct < 0.2 mg/dL (0.0-0.3); Blood Urea Nitrogen 20 mg/dl (8-23); Gamma Glutamyl Transpeptidase 38 U/L (8-61); Uric Acid 8.4 mg/dL (2.5-8.0)
[2018-03-11] MEDS: 0.9 % SODIUM CHLORIDE 10 ML SYRINGE IV SCH ×3 (05:39→21:54)
[2018-03-11] MEDS: FUROSEMIDE 100 MG/10 ML VIAL IV SCH (05:39)
[2018-03-11] MEDS: INSULIN LISPRO 1 UNIT/0.01 ML UNIT SQ SCH ×4 (07:35→21:53)
[2018-03-11] MEDS: DOXYCYCLINE HYCLATE 100 MG TABLET.ORL PO SCH ×2 (09:14→20:25)
[2018-03-11] MEDS ORDERED: METOLAZONE 2.5 MG TABLET PO ONE (09:15)
[2018-03-11] MEDS: FERROUS SULFATE 325 MG TABLET PO SCH ×2 (09:18→12:09)
[2018-03-11] MEDS ORDERED: PNEUMOCOCCAL 23-VAL P-SAC VAC 0.5 ML VIAL IM ONE (09:30)
[2018-03-11] MEDS: BUMETANIDE 0.25 MG/ML VIAL IV SCH ×2 (10:15→18:38)
--- NOTE | 2018-03-11 11:42 | Internal Med Progress Note ---
Medical - PN: Subj Patient information: Note initiated : 03/11/18 at 11:39 am Service Date, if different from initiated Date: [] Patient: Florencio Grace a 62 y/o M admitted on 03/09/18 for SOB, CHF. Chief Complaint: [] Interval history: Mr. Grace is a 62 year old M with history of diabetes, congestive heart failure hypertension morbid obesity right lower extremity wound presents to the emergency room 2 days in a row for evaluation of shortness of breath. The patient was here yesterday and the initial plan was to admit him for congestive heart failure however the patient refused. The patient was therefore follow-up with his PCP again today and he was sent back to the emergency room because of severe shortness of breath. The patient has been having shortness of breath that has been getting worse for the last 2 weeks. The patient notes that minimal activity makes him short of breath. He has gained approximately 35 pounds over the last 3 months. He attributes his weight gain to noncompliance with his oral diuretic medications. As well as increased oral intake. His lack of ability to exercise. The patient denies any other acute complaints or concerns. He has some cough which is worse when he lies down. Clear cough no hemoptysis. The patient denies any chest pain, no palpitations no headache no dizziness no GI complaints no complaints. He has significant edema in his lower extremities. The patient has followed with wound care as well as infectious disease for management of his chronic lower extremity wound. He has completed oral antibiotic course and was seen by wound care physician yesterday in the emergency room. Patient has been advised to take tetracycline for now. In the emergency room patient was afebrile heart rate 105 blood pressure 167/83 saturating 99% on room air. Hemoglobin 9.5 WBC count 8.3 platelets 222 sodium 145 potassium 3.7 bicarbonate 29 creatinine 1.4 glucose 137 BNP is 11,418 troponin negative. EKG shows sinus rhythm, old anterior inferior infarct, QS wave in V1 to V5. Left axis deviation. Chest x-ray shows bilateral atelectasis versus pneumonia congestive heart failure cardiomegaly The patient noted he has had an echocardiogram done at [facility] in the last 2 months. We will try to obtain a copy Patient will be admitted to the hospital for further management 03/10 Patient's and examined no acute overnight events. All medications reviewed. Patient is not sure why he is not on a beta-medhat. Echocardiogram done recently at [facility] I believe on 02/02/2018 reviewed. Ejection fraction was 45%. Unable to determine diastolic dysfunction. Patient has responded very well to IV diuresis. -5500 mL. Discussed with the patient intent to start patient on beta-blockers patient verbalized understanding and agreeable to treatment. labs stable, creat slightly worse at 1.5 03/11 Is examined, no acute overnight events. Last night got chlorothiazide IV and then Lasix, he did not be as much. Total urine output yesterday is 1350, he just -250 yesterday. His albumin is 2.3. He has significant proteinuria in his urine analysis. I am going to switch his diuretic regimen from Lasix to Bumex, give him a dose of metolazone before his a.m. dose of Bumex and see if he makes more urine. Sent for protein creatinine ratio, urine electrophoresis. Creatinine is 1.8, it is very likely that the patient's significant proteinuria is related to diabetes, however will rule out other causes. If the patient's renal function worsens will consider nephrology consult Patient otherwise feels much better, which is to go home. Pertinent ROS: Denies headache, dizziness Denies chest pain, palpitations Denies cough or shortness of breath Denies abdominal pain, nausea or vomiting. - Constitutional Vitals: Vital Signs Temp Pulse Resp BP Pulse Ox 98.1 F 75 18 108/90 93 03/11/18 08:03 03/11/18 04:00 03/11/18 04:00 03/11/18 08:03 03/11/18 08:49 Period Temp Pulse Resp BP Sys/Bush Pulse Ox Last 24 Hr 97.8 F-98.6 F 68-86 18-28 108-164/67-90 84-99 Intake and Output 03/10/18 03/11/18 03/11/18 21:59 05:59 13:59 Intake Total 500 / 500 Output Total 725 / 725 625 / 625 Balance -725 / -725 -125 / -125 Weight 354 lb 3.2 oz Intake & Output: Intake & Output 03/10/18 03/11/18 03/11/18 21:59 05:59 13:59 Intake Total 500 / 500 Output Total 725 / 725 625 / 625 Balance -725 / -725 -125 / -125 Weight 354 lb 3.2 oz Intake: Oral 500 / 500 Output: Urine Catheter Amount 725 / 725 625 / 625 Other: Meal Dinner Percent of Meal Consumed 75% Feeding Ability Independent Urine Appearance Uretheral (Mayo) Clear Urine Color Uretheral (Mayo) Light Mary Stool Size Moderate Stool Color Brown Yellow Stool Consistency Formed # Bowel Movements 1 Exam: Constitutional; Afebrile, cooperative, alert, not in distress. Respiratory system: Air Entry equal on both sides, No crackles or wheezing, no rhonchi. CVS- Rate rhythm regular, S1,S2 heard, no gallop, no rub. 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 rima lower extremity edema upto thigh present Medical - PN: Obj Da - Labs CBC & Chem 7: 03/11/18 03:50 03/11/18 03:50 Labs: Abnormal Lab Results 03/11/18 03/11/18 03/11/18 03:50 03:50 03:50 RBC 3.25 L Hgb 8.4 L Hct 26.9 L MCH 25.8 L RDW 17.7 H Gran % Lymph % (Auto) Lymph # (Auto) 1.2 L PT 30.1 H INR 2.8 H Carbon Dioxide Creatinine 1.8 H Glucose 122 H Uric Acid 8.4 H Calcium 8.0 L Phosphorus 4.8 H Alkaline Phosphatase NT-Pro-B Natriuret Pep Albumin 2.3 L Globulin 4.3 H Albumin/Globulin Ratio 0.5 L Urine Protein Hyaline Casts 03/10/18 03/10/18 03/10/18 06:28 06:28 06:28 RBC 3.41 L Hgb 9.2 L Hct 28.1 L MCH RDW 17.9 H Gran % Lymph % (Auto) Lymph # (Auto) 1.1 L PT 28.1 H INR 2.6 H Carbon Dioxide 31 H Creatinine 1.5 H Glucose 184 H Uric Acid Calcium 8.3 L Phosphorus Alkaline Phosphatase NT-Pro-B Natriuret Pep Albumin 2.8 L Globulin 4.1 H Albumin/Globulin Ratio 0.7 L Urine Protein Hyaline Casts 03/09/18 03/09/1803/09/18 12:50 12:13 12:12 RBC 3.57 L Hgb 9.5 L Hct 29.4 L MCH RDW 18.1 H Gran % 78.1 H Lymph % (Auto) 12.7 L Lymph # (Auto) 1.1 L PT 29.6 H INR 2.8 H Carbon Dioxide Creatinine Glucose Uric Acid Calcium Phosphorus Alkaline Phosphatase NT-Pro-B Natriuret Pep Albumin Globulin Albumin/Globulin Ratio Urine Protein >=500 A Hyaline Casts 13 H 03/09/18 12:12 RBC Hgb Hct MCH RDW Gran % Lymph % (Auto) Lymph # (Auto) PT INR Carbon Dioxide Creatinine 1.4 H Glucose 137 H Uric Acid Calcium Phosphorus Alkaline Phosphatase 137 H NT-Pro-B Natriuret Pep 70377.0 H Albumin 3.0 L Globulin 4.3 H Albumin/Globulin Ratio 0.7 L Urine Protein Hyaline Casts Meds: Medications Acetaminophen (Tylenol) 650 mg PO Q6HP PRN PRN Reason: PAIN/FEVER > 101 Albuterol/Ipratropium (Duoneb) 3 ml NEB Q4HP PRN PRN Reason: Shortness Of Breath Or Wheezing Bumetanide (Bumex) 2 mg IV Q8H [facility] Stop: 03/11/18 18:01 Last Admin: 03/11/18 10:15 Dose: 2 mg Dextrose (Dextrose 50%) 0 ml IV UD PRN PRN Reason: Hypoglycemia Diagnostic Test (Pha) (Accu-Chek) 1 each FS [facility] Last Admin: 03/11/18 07:32 Dose: 1 each Doxycycline Hyclate (Doxycycline Hyclate) 100 mg PO BID [facility] Last Admin: 03/11/18 09:14 Dose: 100 mg Ferrous Sulfate (Ferrous Sulfate) 325 mg PO DAILY@1200 [facility] Glucose (Insta-Glucose) 15 gm PO PRN PRN PRN Reason: Hypoglycemia Guaifenesin (Robitussin Dm) 10 ml PO Q4HP PRN PRN Reason: Cough Hydralazine HCl (Apresoline) 10 mg IV Q4HP PRN PRN Reason: Hypertension Insulin Glargine (Lantus) 60 unit SQ [facility] Last Admin: 03/10/18 20:34 Dose: 60 unit Insulin Human Lispro (Humalog) 0 unit SQ [facility]; Protocol Last Admin: 03/11/18 07:35 Dose: 2 unit Loperamide HCl (Imodium) 2 mg PO PRN PRN PRN Reason: Diarrhea Last Admin: 03/10/18 12:20 Dose: 2 mg Metoprolol Succinate (Toprol Xl) 50 mg PO [facility] Last Admin: 03/10/18 20:27 Dose: 50 mg Naloxone HCl (Narcan) 0.1 mg IV Q2MIN PRN PRN Reason: Opiate Reversal Ondansetron HCl (Zofran) 4 mg IV Q4HP PRN PRN Reason: Nausea And Vomiting Last Admin: 03/10/18 12:20 Dose: 4 mg Oxymetazoline HCl (Afrin) 3 spray IRIS BIDP PRN PRN Reason: Nasal Congestion Last Admin: 03/10/18 07:34 Dose: 3 puff Sodium Chloride (Saline Flush) 10 ml IV Q8 [facility] Last Admin: 03/11/18 05:39 Dose: 10 ml Tamsulosin HCl (Flomax) 0.4 mg PO [facility] Last Admin: 03/10/18 20:27 Dose: 0.4 mg Warfarin Sodium (Coumadin Per Pharmacy) 1 order PO [facility] Medical - PN: A/P - Time Spent With Patient Total time spent is greater than 50% in coordination of care (as documented) at patient's floor/unit and/or counseling patient: - Narrative A/P Narrative: A/P Acute congestive heart failure (not sure if systolic or diastolic, no echo available) Acute on Chronic renal failure Diabetes mellitus HLD Morbid Obesity H/o pulmonary embolus Right lower extremity wound Hypoalbuminemia Proteinuria Plan monitor on tele , start on metoprolol, heart rate and blood pressure much better. HOld ARB (home dose for renal dysnfunction), hold isosorbide, as not sure how he will respond on metoprolol and will likely discontinue same at discharge R/o PNA, clincally no e/o infection, procalcitoni is 0.11 IV bumex 2mg tid, metolozine today before bumex dose. pt renal failure appears cardio renal, but could also be related to use of diuretic. Lantus and ssin insulin for glucose control trend INR, continue Coumadin per pharmacy continue antibiotics and consult wound care. DVT on Coumadin Cardiac, carb consistent diet. Full code. Medical - PN: Qual - VTE Deep Vein Thrombosis/Pulmonary Embolism Present on Admission: Yes
[2018-03-11 11:57] LABS: Appearance,Urine HAZY; Bacteria,Urine FEW /hpf (0); Bilirubin,Urine NEG (NEG); Color,Urine YELLOW; Glucose,Urine (UA) NEGATIVE (NEG); Leukocyte Esterase,Urine 250 /uL (NEG); Mucus,Urine MANY /hpf (0); Protein,Urine 100 mg/dL (NEG); Specific Gravity,Urine 1.012 (1.000-1.035); Urine Amorphous Crystals FEW /hpf (0); Urine Blood 0.2 mg/dL (<0.03); Urine Hyaline Cast 200 /lpf (0-2); Urine RBC 153 /hpf (0-1); Urine Squamous Epithelial Cell 4 /hpf (0-4); Urine Transitional Epi Cells < 1 /hpf (0-2); Urine WBC 20 /hpf (0-4); Urobilinogen,Urine NEG (NEG)
[2018-03-11] MEDS: ACETAMINOPHEN 325 MG TABLET PO PRN (13:45)
[2018-03-11] MEDS ORDERED: WARFARIN 2.5 MG TABLET PO ONE (14:00)
[2018-03-11 14:03] LABS: Blood Urea Nitrogen 24 mg/dl (8-23)
[2018-03-11] MEDS: OXYMETAZOLINE 1 SPRAY BOTTLE NAS PRN (16:17)
[2018-03-11] MEDS: TAMSULOSIN 0.4 MG CAPSULE PO SCH (20:24)
[2018-03-11] MEDS: METOPROLOL SUCCINATE 50 MG TAB.XL.24H PO SCH (20:25)
[2018-03-11] MEDS: INSULIN GLARGINE, HUMAN 1 UNIT/0.01 ML SQ SCH (21:54)
[2018-03-12] MEDS: 0.9 % SODIUM CHLORIDE 10 ML SYRINGE IV SCH ×3 (05:24→20:40)
[2018-03-12 06:31] LABS: Basophils # (Auto) 0 K/mcL (0.0-0.3); Basophils % (Auto) 0.4 % (0.0-2.0); Eosinophils # (Auto) 0.1 K/mcL (0.0-0.7); Granulocytes % (Auto) 70.3 % (38.0-78.0); Lymphocytes # (Auto) 1.2 K/mcL (1.5-4.8); Lymphocytes % (Auto) 18.1 % (15.5-49.0); Mean Cell Volume 82.9 fL (80.0-100.0); Mean Corpuscular HGB Conc 31.4 g/dL (31.0-36.0); Monocytes # (Auto) 0.6 K/mcL (0.1-0.9); Monocytes % (Auto) 9.2 % (1.0-12.0); Platelet Count 170 K/mcL (140-440); RBC 3.07 M/mcL (4.50-5.90); Red Cell Distribution Width 17.9 % (11.5-14.5)
[2018-03-12 06:52] LABS: ALT/SGPT 11 U/l (0-40); Albumin 2.5 gm/dL (3.2-5.2); Albumin/Globulin Ratio 0.7 (1.0-2.3); Alkaline Phosphatase 99 U/L (39-117); Bilirubin,Direct < 0.2 mg/dL (0.0-0.3); Blood Urea Nitrogen 27 mg/dl (8-23); Gamma Glutamyl Transpeptidase 38 U/L (8-61); Uric Acid 9.9 mg/dL (2.5-8.0)
[2018-03-12] MEDS: ACETAMINOPHEN 325 MG TABLET PO PRN ×2 (07:12→15:24)
[2018-03-12] MEDS: INSULIN LISPRO 1 UNIT/0.01 ML UNIT SQ SCH ×4 (07:15→20:39)
[2018-03-12] MEDS: DOXYCYCLINE HYCLATE 100 MG TABLET.ORL PO SCH ×2 (07:16→20:40)
--- NOTE | 2018-03-12 07:41 | XRay Report ---
HISTORY: Congestive heart failure FINDINGS: There is congestive heart failure with pulmonary edema. There may be superimposed atelectasis in the lung bases. I suspect the patient has small subpulmonic pleural effusions bilaterally. The heart is mildly enlarged. The congestive heart failure has progressively improved since 03/08/18. IMPRESSION: Improving congestive heart failure with persistent consolidation of the lung parenchyma in both lower lobes, left worse than right Interpreted and Authenticated by: Tony Davila 03/12/18
--- NOTE | 2018-03-12 07:45 | Ultrasound Report ---
History: Renal failure FINDINGS: The right kidney measures 4.6 x 5.5 x 12.3 cm and the left measures 3.8 x 5.6 x 10.6 cm. There is no evidence of mass, cyst, calculus, hydronephrosis, inflammation or fibrosis in either kidney. The urinary bladder is decompressed by a catheter. Therefore we are unable to evaluate for patency of the ureters. Patient was also technically difficult to scan due to body habitus. The spleen appears mildly enlarged. No ascites is present. IMPRESSION: Anatomically normal kidneys Interpreted and Authenticated by: Tony Davila 03/12/18
[2018-03-12] MEDS: OXYMETAZOLINE 1 SPRAY BOTTLE NAS PRN ×2 (08:32→18:51)
[2018-03-12 10:35] LABS: Iron 24 mcg/dl (61-157); Transferrin % Saturation 10 % (20-50); Unsaturated Iron Binding 201 mcg/dL (112-346)
[2018-03-12 10:39] LABS: Retic Absolute 1.6 % (0.5-1.5)
[2018-03-12 10:45] LABS: Ferritin 81.5 ng/ml (30-400); Haptoglobin 165 mg/dl (30-200)
[2018-03-12 11:31] LABS: Vitamin B12 421.2 pg/ml (232-1245)
[2018-03-12] MEDS: FERROUS SULFATE 325 MG TABLET PO SCH (12:59)
--- NOTE | 2018-03-12 13:09 | XRay Report ---
HISTORY: Knee pain FINDINGS: The medial joint compartment is mildly narrowed, indicating loss of articular cartilage. The patellofemoral and lateral joint compartments are normal in width. Tiny spur is seen along the superior articular margin of the patella. There is no fracture or destructive bone lesion. There may be a small suprapatellar joint effusion. A moderate amount of calcified plaque is present in the arteries above and below the knee. IMPRESSION: Mild arthritis with the greatest involvement in the medial joint compartment Interpreted and Authenticated by: Tony Davila 03/12/18
[2018-03-12] MEDS ORDERED: POTASSIUM CHLORIDE 20 MEQ PACKET PO ONE (13:32)
[2018-03-12] MEDS ORDERED: WARFARIN 5 MG TABLET PO ONE (14:00)
--- NOTE | 2018-03-12 14:52 | Internal Med Progress Note ---
Medical - PN: Subj Patient information: Note initiated : 03/12/18 at 2:49 pm Service Date, if different from initiated Date: [] Patient: Florencio Grace a 62 y/o M admitted on 03/09/18 for SOB, CHF. Chief Complaint: [] Interval history: Mr. Grace is a 62 year old M with history of diabetes, congestive heart failure hypertension morbid obesity right lower extremity wound presents to the emergency room 2 days in a row for evaluation of shortness of breath. The patient was here yesterday and the initial plan was to admit him for congestive heart failure however the patient refused. The patient was therefore follow-up with his PCP again today and he was sent back to the emergency room because of severe shortness of breath. The patient has been having shortness of breath that has been getting worse for the last 2 weeks. The patient notes that minimal activity makes him short of breath. He has gained approximately 35 pounds over the last 3 months. He attributes his weight gain to noncompliance with his oral diuretic medications. As well as increased oral intake. His lack of ability to exercise. The patient denies any other acute complaints or concerns. He has some cough which is worse when he lies down. Clear cough no hemoptysis. The patient denies any chest pain, no palpitations no headache no dizziness no GI complaints no complaints. He has significant edema in his lower extremities. The patient has followed with wound care as well as infectious disease for management of his chronic lower extremity wound. He has completed oral antibiotic course and was seen by wound care physician yesterday in the emergency room. Patient has been advised to take tetracycline for now. In the emergency room patient was afebrile heart rate 105 blood pressure 167/83 saturating 99% on room air. Hemoglobin 9.5 WBC count 8.3 platelets 222 sodium 145 potassium 3.7 bicarbonate 29 creatinine 1.4 glucose 137 BNP is 11,418 troponin negative. EKG shows sinus rhythm, old anterior inferior infarct, QS wave in V1 to V5. Left axis deviation. Chest x-ray shows bilateral atelectasis versus pneumonia congestive heart failure cardiomegaly The patient noted he has had an echocardiogram done at [facility] in the last 2 months. We will try to obtain a copy Patient will be admitted to the hospital for further management 03/10 Patient's and examined no acute overnight events. All medications reviewed. Patient is not sure why he is not on a beta-medhat. Echocardiogram done recently at [facility] I believe on 02/02/2018 reviewed. Ejection fraction was 45%. Unable to determine diastolic dysfunction. Patient has responded very well to IV diuresis. -5500 mL. Discussed with the patient intent to start patient on beta-blockers patient verbalized understanding and agreeable to treatment. labs stable, creat slightly worse at 1.5 03/11 Is examined, no acute overnight events. Last night got chlorothiazide IV and then Lasix, he did not be as much. Total urine output yesterday is 1350, he just -250 yesterday. His albumin is 2.3. He has significant proteinuria in his urine analysis. I am going to switch his diuretic regimen from Lasix to Bumex, give him a dose of metolazone before his a.m. dose of Bumex and see if he makes more urine. Sent for protein creatinine ratio, urine electrophoresis. Creatinine is 1.8, it is very likely that the patient's significant proteinuria is related to diabetes, however will rule out other causes. If the patient's renal function worsens will consider nephrology consult Patient otherwise feels much better, which is to go home. 03/12 Pt seen examined, no acute overnight issues pt is neg 7254 ml since admissin, diuresed well yesterday with metolozone and bumex, Renal functino is worsening, creat is 2.1, Hb continues to drop, now at 8.0, anemia workup sent, iron low, tibc at 10, retic 1.5, no e/o bleed prot creat ration reviewed, repeat ua is a barney sample, not sure how much importance to give to wbc/rbc, no e/o infection Pt is stable at baseline, but is very short of breath with minimal ambulation he has pain in the left knee, reports is stiff. Pertinent ROS: Denies headache, dizziness Denies chest pain, palpitations Denies cough or shortness of breath (worse with activity, better at rest, improving) Denies abdominal pain, nausea or vomiting. - Constitutional Vitals: Vital Signs Temp Pulse Resp BP Pulse Ox 98.3 F 77 24 H 144/69 94 03/12/18 11:42 03/11/18 08:00 03/12/18 11:42 03/12/18 11:42 03/12/18 11:42 Period Temp Pulse Resp BP Sys/Bush Pulse Ox Last 24 Hr 97.5 F-98.5 F 18-24 102-153/46-84 91-100 Intake and Output 03/12/18 03/12/18 03/12/18 05:59 13:59 21:59 Intake Total 240 / 240 Output Total 1650 / 1650 Balance -1650 / -1650 240 / 240 Intake & Output: Intake & Output 03/12/18 03/12/18 03/12/18 05:59 13:59 21:59 Intake Total 240 / 240 Output Total 1650 / 1650 Balance -1650 / -1650 240 / 240 Intake: Oral 240 / 240 Output: Urine Catheter Amount 1650 / 1650 Other: Meal Lunch Percent of Meal Consumed 100% Feeding Ability Independent Urine Appearance Clear Urine Color Pale Stool Size Copious Stool Color Brown Stool Consistency Soft Formed # Bowel Movements 1 Exam: Constitutional; Afebrile, cooperative, alert, not in distress. Eyes- No icterus, , No periorbital swelling Ears- Ext ear normal, hearing normal to conversation. Neck- Midline trachea, supple Respiratory system: Air Entry equal on both sides, No crackles or wheezing, no rhonchi. CVS- Rate rhythm regular, S1,S2 heard, no gallop, no rub. Abdomen- Soft nontender abdomen, no organomegaly, no tenderness, no guarding or rigidity, [employer]- AOOx3, moving all extremities, no gross focal deficit noted. left knee no obvious effusion erythema, rima lower extremity edema still quite significant. Medical - PN: Obj Da - Labs CBC & Chem 7: 03/12/18 04:05 03/12/18 04:05 Labs: Abnormal Lab Results 03/12/18 03/12/18 03/12/18 10:06 04:05 04:05 RBC Hgb Hct MCH RDW Lymph # (Auto) Absolute Retic PT 27.8 H INR 2.6 H Carbon Dioxide 33 H BUN 27 H Creatinine 2.1 H Glucose Uric Acid 9.9 H Calcium 8.3 L Phosphorus Iron 24 L TIBC 225 L Transferrin % Sat 10 L Albumin 2.5 L Globulin 3.8 H Albumin/Globulin Ratio 0.7 L Urine Protein Urine Occult Blood Ur Leukocyte Esterase Urine RBC Urine WBC Amorphous Crystals Urine Bacteria Hyaline Casts Urine Mucus U [place] Prot/Creat Ratio 03/12/18 03/12/18 03/11/18 04:05 03:45 13:15 RBC 3.07 L Hgb 8.0 L Hct 25.5 L MCH RDW 17.9 H Lymph # (Auto) 1.2 L Absolute Retic 1.6 H PT INR Carbon Dioxide BUN 24 H Creatinine 2.0 H Glucose 210 H Uric Acid Calcium 8.2 L Phosphorus Iron TIBC Transferrin % Sat Albumin Globulin Albumin/Globulin Ratio Urine Protein Urine Occult Blood Ur Leukocyte Esterase Urine RBC Urine WBC Amorphous Crystals Urine Bacteria Hyaline Casts Urine Mucus U [place] Prot/Creat Ratio 03/11/18 03/11/18 03/11/18 10:51 10:51 03:50 RBC Hgb Hct MCH RDW Lymph # (Auto) Absolute Retic PT INR Carbon Dioxide BUN Creatinine 1.8 H Glucose 122 H Uric Acid 8.4 H Calcium 8.0 L Phosphorus 4.8 H Iron TIBC Transferrin % Sat Albumin 2.3 L Globulin 4.3 H Albumin/Globulin Ratio 0.5 L Urine Protein 100 A Urine Occult Blood 0.2 A Ur Leukocyte Esterase 250 A Urine RBC 153 H Urine WBC 20 H Amorphous Crystals Few A Urine Bacteria Few A Hyaline Casts 200 H Urine Mucus Many A U [place] Prot/Creat Ratio 1.04 H 03/11/18 03/11/18 03/10/18 03:50 03:50 06:28 RBC 3.25 L Hgb 8.4 L Hct 26.9 L MCH 25.8 L RDW 17.7 H Lymph # (Auto) 1.2 L Absolute Retic PT 30.1 H INR 2.8 H Carbon Dioxide 31 H BUN Creatinine 1.5 H Glucose 184 H Uric Acid Calcium 8.3 L Phosphorus Iron TIBC Transferrin % Sat Albumin 2.8 L Globulin 4.1 H Albumin/Globulin Ratio 0.7 L Urine Protein Urine Occult Blood Ur Leukocyte Esterase Urine RBC Urine WBC Amorphous Crystals Urine Bacteria Hyaline Casts Urine Mucus U [place] Prot/Creat Ratio 03/10/18 03/10/18 06:28 06:28 RBC 3.41 L Hgb 9.2 L Hct 28.1 L MCH RDW 17.9 H Lymph # (Auto) 1.1 L Absolute Retic PT 28.1 H INR 2.6 H Carbon Dioxide BUN Creatinine Glucose Uric Acid Calcium Phosphorus Iron TIBC Transferrin % Sat Albumin Globulin Albumin/Globulin Ratio Urine Protein Urine Occult Blood Ur Leukocyte Esterase Urine RBC Urine WBC Amorphous Crystals Urine Bacteria Hyaline Casts Urine Mucus U [place] Prot/Creat Ratio Meds: Medications Acetaminophen (Tylenol) 650 mg PO Q6HP PRN PRN Reason: PAIN/FEVER > 101 Last Admin: 03/12/18 07:12 Dose: 650 mg Albuterol/Ipratropium (Duoneb) 3 ml NEB Q4HP PRN PRN Reason: Shortness Of Breath Or Wheezing Dextrose (Dextrose 50%) 0 ml IV UD PRN PRN Reason: Hypoglycemia Diagnostic Test (Pha) (Accu-Chek) 1 each FS [facility] Last Admin: 03/12/18 12:57 Dose: 1 each Doxycycline Hyclate (Doxycycline Hyclate) 100 mg PO BID [facility] Last Admin: 03/12/18 07:16 Dose: 100 mg Ferrous Sulfate (Ferrous Sulfate) 325 mg PO DAILY@1200 [facility] Last Admin: 03/12/18 12:59 Dose: 325 mg Glucose (Insta-Glucose) 15 gm PO PRN PRN PRN Reason: Hypoglycemia Guaifenesin (Robitussin Dm) 10 ml PO Q4HP PRN PRN Reason: Cough Hydralazine HCl (Apresoline) 10 mg IV Q4HP PRN PRN Reason: Hypertension Insulin Glargine (Lantus) 60 unit SQ [facility] Last Admin: 03/11/18 21:54 Dose: 60 unit Insulin Human Lispro (Humalog) 0 unit SQ [facility]; Protocol Last Admin: 03/12/18 12:57 Dose: Not Given Loperamide HCl (Imodium) 2 mg PO PRN PRN PRN Reason: Diarrhea Last Admin: 03/10/18 12:20 Dose: 2 mg Metoprolol Succinate (Toprol Xl) 50 mg PO [facility] Last Admin: 03/11/18 20:25 Dose: 50 mg Naloxone HCl (Narcan) 0.1 mg IV Q2MIN PRN PRN Reason: Opiate Reversal Ondansetron HCl (Zofran) 4 mg IV Q4HP PRN PRN Reason: Nausea And Vomiting Last Admin: 03/10/18 12:20 Dose: 4 mg Oxymetazoline HCl (Afrin) 3 spray IRIS BIDP PRN PRN Reason: Nasal Congestion Last Admin: 03/12/18 08:32 Dose: 1 puff Sodium Chloride (Saline Flush) 10 ml IV Q8 [facility] Last Admin: 03/12/18 12:57 Dose: 10 ml Tamsulosin HCl (Flomax) 0.4 mg PO HS [facility] Last Admin: 03/11/18 20:24 Dose: 0.4 mg Warfarin Sodium (Coumadin Per Pharmacy) 1 order PO UD [facility] Medical - PN: A/P - Time Spent With Patient Total time spent is greater than 50% in coordination of care (as documented) at patient's floor/unit and/or counseling patient: - Narrative A/P Narrative: A/P Acute congestive heart failure systolic and likely diastolic- -continue IV bumex for now, if has decrsaed urine output, can consider adding metolozone to the regime. Acute on Chronic renal failure -Initially thought to be cardio renal syndrome, but pt renal function has worsened with diuresis, pt on point of care usg still has a large IVC with poor resp variation. -consult nephrology Anemia -likely anemia of chr disease / due to ckd - iron studies show low Tsat, need for iv Iron? HTN -on metoprolol -contiue to hold ARB in light of worsening renal fuction - bp is stable - I think we will have to discontinue issorbide at the time of discharge, given pt would do better with a beta medhat than nitrate in light of chf. Diabetes mellitus -SSI insulin for glucose control HLD -not on statin? Morbid Obesity -outpatient follow up H/o pulmonary embolus -on warfarin with therapeutic INR Right lower extremity wound - needs to be on doxy as per ID, -wound care following Hypoalbuminemia/Proteinuria -etiology? diabetic nephropathy? -protein electrophoresis sent, -nephrology help would be appreciated. DVT on Coumadin Cardiac, carb consistent diet. Full code. Medical - PN: Qual - VTE Deep Vein Thrombosis/Pulmonary Embolism Present on Admission: Yes
--- NOTE | 2018-03-12 14:53 | Nephrology Consult Note ---
History of Present Illness - Reason for Consult Patient information: Note initiated : 03/12/18 at 2:50 pm Service Date, if different from initiated Date: [] Patient: Florencio Grace 62 y/o M admitted on 03/09/18 for SOB, CHF. Chief Complaint: [] Consult date: 03/12/18 acute renal failure Requesting physician: Byron Estrada - Chief Complaint SOB - History of Present Illness Patient is a 62 y/o white male with PMH of HTN, DM type 2, CHF, morbid obesity and other medical issues who is admitted with CHF Patient was hospitalized on 03/09 with c/o severe SOB, worsening edema, weight gain from fluid retention over the last 2 mths or more. Patient admitted to non compliance with diuretics. He denied any other symptoms Patient on initial eval had anemia, elevated BNP (11,000), S.Creatinine of 1.4. CXR with CHF/? PNA he has been on bumex 2mg iv tid with thiazide diuretic and has achieved more than 7L of net negative fluid balance He c/o persistent edema, SOB is better no CP No gi symptoms denies any dizziness states monitor salt intake denies use of NSAIDS Nephrology is consulted given worsenign renal function Review of Systems All systems PM: reviewed and no additional remarkable complaints except as stated (as in HPI) Past History Past medical history: DM type 2 with retinopathy, neuropathy HTN CHF, low EF morbid obesity chronic wound in right LE CKD dyslipidemia colon cancer ? 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 denies any addictions at present Medications and Allergies Home Medications Medication Instructions Recorded Confirmed Type Ferrous Sulfate [Iron] 325 mg PO DAILY 03/08/18 03/09/18 History Insulin Glargine, Human [Lantus] 60 unit SQ DAILY 03/08/18 03/09/18 History Linezolid 600 mg PO DAILY 03/08/18 03/09/18 History Loperamide [Imodium] 2 mg PO PRN PRN 03/08/18 03/09/18 History Tamsulosin [Flomax] 0.4 mg PO HS 03/08/18 03/09/18 History Torsemide 100 mg PO DAILY 03/08/18 03/09/18 History Warfarin [Coumadin] 5 mg PO DAILY 03/08/18 03/09/18 History metFORMIN HCL [Metformin HCl] 1,000 mg PO HS 03/08/18 03/09/18 History Ergocalciferol (Vitamin D2) 50,000 unit PO 3XW 03/09/18 03/09/18 History [Vitamin D2] Isosorbide Mononitrate [Imdur] 60 mg PO DAILY 03/09/18 03/09/18 History Oxymetazoline HCl [Nasal [place]] 3 spray NS BIDP PRN 03/09/18 03/09/18 History Valsartan 320 mg PO DAILY 03/09/18 03/09/18 History doxycycline hyclate 100 mg tablet 100 mg PO BID #120 tab 03/09/18 03/09/18 Rx Allergies Allergy/AdvReac Type Severity Reaction Status Date / Time No Known Drug Allergies Allergy Verified 03/09/18 11:57 Exam - Vital Signs Vital signs: Temp Pulse Resp BP Pulse Ox 98.3 F 77 24 H 144/69 94 03/12/18 11:42 03/11/18 08:00 03/12/18 11:42 03/12/18 11:42 03/12/18 11:42 - General Appearance General appearance: appears started age, obese EENT: mucous membranes moist Neck: no JVD Respiratory: clear Cardiology: no rub, edema (2+), regular rate, regular rhythm Gastrointestinal: no tenderness, no guarding Integumentary: warm and dry Neurologic: alert and oriented x3 Musculoskeletal: no cyanosis, no clubbing Psychiatric: mood/affect appropriate Results - Lab Results 03/12/18 04:05 03/12/18 04:05 Most recent lab results Calcium 8.3 mg/dl (8.6-10.4) L 03/12/18 04:05 Phosphorus 4.3 mg/dL (2.7-4.5) 03/12/18 04:05 Magnesium 2.0 mg/dL (1.6-2.5) 03/12/18 04:05 Assessment and Plan - Narrative A/P Narrative: Acute on chronic renal failure Proteinuria S.creatinine 2.1 today, egfr 32ml/min s.creatinine was 1.4 on admission, last year s.creatinine has been 1.3-1.8 UA with proteinuria, hyaline casts, RBC(this was on cath sample) \renal US shows no e/o obstruction CKD likely from DM type2 (has retinopathy), HTN, CHF acute worsening from diuresis, low normal BP yesterday, CHF labs discussed with the patient agree with holding valsartan for now, will resume once renal function in steady state will resume diuretics tomorrow, hold for today will obtain proteinuria work up renal issues discussed with the patient please dose meds to egfr, avoid nephrotoxic meds anemia: low iron stores and CKD contributing will start IV iron, once replete may need aranesp stool occult blood was reported to be negative spep/upep pending CHF: will need to resume diuresis on beta blockers will resume arb as above, hold for now malnutrition: will need protein supplement HTN: control fair at this time Will follow along Thank you for giving me an opportunity to participate in Mr Grace's medical care, appreciate it
[2018-03-12] MEDS ORDERED: IRON SUCROSE COMPLEX 100 MG/5 ML VIAL IV ONE (15:03)
--- NOTE | 2018-03-12 15:11 | General Surgery Progress Note ---
Subjective Narrative: Note initiated : 03/12/18 at 3:09 pm Service Date, if different from initiated Date: [] Patient: Florencio Grace 62 y/o M admitted on 03/09/18 for SOB, CHF. Chief Complaint: [] Patient seen for f/u along with Raquel TRAN. Progress and wound care orders for RIGHT lower leg reviewed. Patient was referred to the emergency room after evaluation in the wound care clinic due to acute issue of shortness of breath and tachypnea with tachycardia. Suspected underlying CHF and evolving cardiopulmonary pathology. Objective Temp Pulse Resp BP Pulse Ox 98.3 F 77 24 H 144/69 94 03/12/18 11:42 03/11/18 08:00 03/12/18 11:42 03/12/18 11:42 03/12/18 11:42 - Additional Data Intake & Output - Last 24 hours: Intake & Output 03/10/18 03/11/18 03/12/18 03/13/18 05:59 05:59 05:59 05:59 Intake Total 1170 / 1170 1100 / 1100 720 / 720 240 / 240 Output Total 6029 / 6029 1350 / 1350 3105 / 3105 Balance -4859 / -4859 -250 / -250 -2385 / -2385 240 / 240 Weight 354 lb 3.2 oz 354 lb 3.2 oz 360 lb 0.238 oz - General physical appearance obese - Eyes PERRL, normal ocular movement - ENT normal pinna, normal nares, normal mucosa - Neck no bruits, no venous distension - Respiratory absent breath sounds: bilateral (decreased air entry both lung bases ) - Cardiovascular Cardiovascular exam: Present: irregular rhythm - Abdomen soft, non tender, bowel sounds - Integumentary other (Area of dermatitis right lower medial leg and an open postsurgical wound at the site of previous scar remote history of surgery for ankle joint replacement.) - Labs 03/13/18 04:26 03/13/18 04:26 Diabetes panel 03/12/18 Range/Units 04:05 Sodium 142 (133-145) mmol/L Potassium 3.7 (3.3-5.1) mmol/L Chloride 99 (96-108) mmol/L Carbon Dioxide 33 H (22-30) mmol/L BUN 27 H (8-23) mg/dl Creatinine 2.1 H (0.7-1.2) mg/dl Glucose 75 (70-105) mg/dL Calcium 8.3 L (8.6-10.4) mg/dl AST 19 (0-37) U/l ALT 11 (0-40) U/l Alkaline Phosphatase 99 (39-117) U/L Total Protein 6.3 (5.9-8.4) gm/dL Albumin 2.5 L (3.2-5.2) gm/dL Triglycerides 69 (<150) mg/dl Calcium panel 03/12/18 Range/Units 04:05 Calcium 8.3 L (8.6-10.4) mg/dl Phosphorus 4.3 (2.7-4.5) mg/dL Albumin 2.5 L (3.2-5.2) gm/dL Pituitary panel 03/12/18 Range/Units 04:05 Sodium 142 (133-145) mmol/L Potassium 3.7 (3.3-5.1) mmol/L Chloride 99 (96-108) mmol/L Carbon Dioxide 33 H (22-30) mmol/L BUN 27 H (8-23) mg/dl Creatinine 2.1 H (0.7-1.2) mg/dl Glucose 75 (70-105) mg/dL Calcium 8.3 L (8.6-10.4) mg/dl Adrenal panel 03/12/18 Range/Units 04:05 Sodium 142 (133-145) mmol/L Potassium 3.7 (3.3-5.1) mmol/L Chloride 99 (96-108) mmol/L Carbon Dioxide 33 H (22-30) mmol/L BUN 27 H (8-23) mg/dl Creatinine 2.1 H (0.7-1.2) mg/dl Glucose 75 (70-105) mg/dL Calcium 8.3 L (8.6-10.4) mg/dl Total Bilirubin 0.2 (0.0-1.0) mg/dL AST 19 (0-37) U/l ALT 11 (0-40) U/l Alkaline Phosphatase 99 (39-117) U/L Total Protein 6.3 (5.9-8.4) gm/dL Albumin 2.5 L (3.2-5.2) gm/dL Assessment and Plan (1) Dermatitis of lower extremity Status: Chronic Current Visit: Yes - Narrative A/P Narrative: Assessment: Congestive heart failure, JERMAN creatinine elevation improving with adjustment of medications. Nephrology following. No acute changes on the wound care performed a few. Conservative management and local wound care with protective dressings ongoing. Patient's clinical cardiorespiratory status has improved significantly since aggressive management of his medical problems and controlled diuresis. Patient currently out of ICU and in stepdown unit. Plan: Continue current management. Following patient while in the hospital. - Time Spent With Patient Total time spent is greater than 50% in coordination of care (as documented) at patient's floor/unit and/or counseling patient: 15 - 24 minutes
--- NOTE | 2018-03-12 15:14 | Internal Med Progress Note ---
Medical - PN: Subj Patient information: Note initiated : 03/12/18 at 3:03 pm Service Date, if different from initiated Date: [] Patient: Florencio Grace a 62 y/o M admitted on 03/09/18 for SOB, CHF. Chief Complaint: [] Interval history: Mr. Grace is a 62 year old M with history of diabetes, congestive heart failure hypertension morbid obesity right lower extremity wound presents to the emergency room 2 days in a row for evaluation of shortness of breath. The patient was here yesterday and the initial plan was to admit him for congestive heart failure however the patient refused. The patient was therefore follow-up with his PCP again today and he was sent back to the emergency room because of severe shortness of breath. The patient has been having shortness of breath that has been getting worse for the last 2 weeks. The patient notes that minimal activity makes him short of breath. He has gained approximately 35 pounds over the last 3 months. He attributes his weight gain to noncompliance with his oral diuretic medications. As well as increased oral intake. His lack of ability to exercise. The patient denies any other acute complaints or concerns. He has some cough which is worse when he lies down. Clear cough no hemoptysis. The patient denies any chest pain, no palpitations no headache no dizziness no GI complaints no complaints. He has significant edema in his lower extremities. The patient has followed with wound care as well as infectious disease for management of his chronic lower extremity wound. He has completed oral antibiotic course and was seen by wound care physician yesterday in the emergency room. Patient has been advised to take tetracycline for now. In the emergency room patient was afebrile heart rate 105 blood pressure 167/83 saturating 99% on room air. Hemoglobin 9.5 WBC count 8.3 platelets 222 sodium 145 potassium 3.7 bicarbonate 29 creatinine 1.4 glucose 137 BNP is 11,418 troponin negative. EKG shows sinus rhythm, old anterior inferior infarct, QS wave in V1 to V5. Left axis deviation. Chest x-ray shows bilateral atelectasis versus pneumonia congestive heart failure cardiomegaly The patient noted he has had an echocardiogram done at [facility] in the last 2 months. We will try to obtain a copy Patient will be admitted to the hospital for further management 03/10 Patient's and examined no acute overnight events. All medications reviewed. Patient is not sure why he is not on a beta-medhat. Echocardiogram done recently at [facility] I believe on 02/02/2018 reviewed. Ejection fraction was 45%. Unable to determine diastolic dysfunction. Patient has responded very well to IV diuresis. -5500 mL. Discussed with the patient intent to start patient on beta-blockers patient verbalized understanding and agreeable to treatment. labs stable, creat slightly worse at 1.5 03/11 Is examined, no acute overnight events. Last night got chlorothiazide IV and then Lasix, he did not be as much. Total urine output yesterday is 1350, he just -250 yesterday. His albumin is 2.3. He has significant proteinuria in his urine analysis. I am going to switch his diuretic regimen from Lasix to Bumex, give him a dose of metolazone before his a.m. dose of Bumex and see if he makes more urine. Sent for protein creatinine ratio, urine electrophoresis. Creatinine is 1.8, it is very likely that the patient's significant proteinuria is related to diabetes, however will rule out other causes. If the patient's renal function worsens will consider nephrology consult Patient otherwise feels much better, which is to go home. 03/12 Pt seen examined, no acute overnight issues pt is neg 7254 ml since admissin, diuresed well yesterday with metolozone and bumex, Renal functino is worsening, creat is 2.1, Hb continues to drop, now at 8.0, anemia workup sent, iron low, tibc at 10, retic 1.5, no e/o bleed prot creat ration reviewed, repeat ua is a barney sample, not sure how much importance to give to wbc/rbc, no e/o infection Pt is stable at baseline, but is very short of breath with minimal ambulation he has pain in the left knee, reports is stiff. 03/13 - Constitutional Vitals: Vital Signs Temp Pulse Resp BP Pulse Ox 98.3 F 77 24 H 144/69 94 03/12/18 11:42 03/11/18 08:00 03/12/18 11:42 03/12/18 11:42 03/12/18 11:42 Period Temp Pulse Resp BP Sys/Bush Pulse Ox Last 24 Hr 97.5 F-98.5 F 18-24 102-153/46-84 91-100 Intake and Output 03/12/18 03/12/18 03/12/18 05:59 13:59 21:59 Intake Total 240 / 240 Output Total 1650 / 1650 Balance -1650 / -1650 240 / 240 Intake & Output: Intake & Output 03/12/18 03/12/18 03/12/18 05:59 13:59 21:59 Intake Total 240 / 240 Output Total 1650 / 1650 Balance -1650 / -1650 240 / 240 Intake: Oral 240 / 240 Output: Urine Catheter Amount 1650 / 1650 Other: Meal Lunch Percent of Meal Consumed 100% Feeding Ability Independent Urine Appearance Clear Urine Color Pale Stool Size Copious Stool Color Brown Stool Consistency Soft Formed # Bowel Movements 1 Exam: General: Alert, Awake, No acute Distress Eyes/N/T: EOMI Head/Neck: neck supple, CV: RRR, No murmurs, Pulm: Clear b/l, no wheezing/rhonchi/rales Abd: soft, nontender, +BS x4 Ext: no clubbing/cyanosis, b/l LE Edema Neuro: Alert, no focal deficits, moves all extremities Skin: warm/dry Medical - PN: Obj Da - Labs CBC & Chem 7: 03/12/18 04:05 03/12/18 04:05 Labs: Abnormal Lab Results 03/12/18 03/12/18 03/12/18 10:06 04:05 04:05 RBC Hgb Hct MCH RDW Lymph # (Auto) Absolute Retic PT 27.8 H INR 2.6 H Carbon Dioxide 33 H BUN 27 H Creatinine 2.1 H Glucose Uric Acid 9.9 H Calcium 8.3 L Phosphorus Iron 24 L TIBC 225 L Transferrin % Sat 10 L Albumin 2.5 L Globulin 3.8 H Albumin/Globulin Ratio 0.7 L Urine Protein Urine Occult Blood Ur Leukocyte Esterase Urine RBC Urine WBC Amorphous Crystals Urine Bacteria Hyaline Casts Urine Mucus U [place] Prot/Creat Ratio 03/12/18 03/12/18 03/11/18 04:05 03:45 13:15 RBC 3.07 L Hgb 8.0 L Hct 25.5 L MCH RDW 17.9 H Lymph # (Auto) 1.2 L Absolute Retic 1.6 H PT INR Carbon Dioxide BUN 24 H Creatinine 2.0 H Glucose 210 H Uric Acid Calcium 8.2 L Phosphorus Iron TIBC Transferrin % Sat Albumin Globulin Albumin/Globulin Ratio Urine Protein Urine Occult Blood Ur Leukocyte Esterase Urine RBC Urine WBC Amorphous Crystals Urine Bacteria Hyaline Casts Urine Mucus U [place] Prot/Creat Ratio 03/11/18 03/11/18 03/11/18 10:51 10:51 03:50 RBC Hgb Hct MCH RDW Lymph # (Auto) Absolute Retic PT INR Carbon Dioxide BUN Creatinine 1.8 H Glucose 122 H Uric Acid 8.4 H Calcium 8.0 L Phosphorus 4.8 H Iron TIBC Transferrin % Sat Albumin 2.3 L Globulin 4.3 H Albumin/Globulin Ratio 0.5 L Urine Protein 100 A Urine Occult Blood 0.2 A Ur Leukocyte Esterase 250 A Urine RBC 153 H Urine WBC 20 H Amorphous Crystals Few A Urine Bacteria Few A Hyaline Casts 200 H Urine Mucus Many A U [place] Prot/Creat Ratio 1.04 H 03/11/18 03/11/18 03/10/18 03:50 03:50 06:28 RBC 3.25 L Hgb 8.4 L Hct 26.9 L MCH 25.8 L RDW 17.7 H Lymph # (Auto) 1.2 L Absolute Retic PT 30.1 H INR 2.8 H Carbon Dioxide 31 H BUN Creatinine 1.5 H Glucose 184 H Uric Acid Calcium 8.3 L Phosphorus Iron TIBC Transferrin % Sat Albumin 2.8 L Globulin 4.1 H Albumin/Globulin Ratio 0.7 L Urine Protein Urine Occult Blood Ur Leukocyte Esterase Urine RBC Urine WBC Amorphous Crystals Urine Bacteria Hyaline Casts Urine Mucus U [place] Prot/Creat Ratio 03/10/18 03/10/18 06:28 06:28 RBC 3.41 L Hgb 9.2 L Hct 28.1 L MCH RDW 17.9 H Lymph # (Auto) 1.1 L Absolute Retic PT 28.1 H INR 2.6 H Carbon Dioxide BUN Creatinine Glucose Uric Acid Calcium Phosphorus Iron TIBC Transferrin % Sat Albumin Globulin Albumin/Globulin Ratio Urine Protein Urine Occult Blood Ur Leukocyte Esterase Urine RBC Urine WBC Amorphous Crystals Urine Bacteria Hyaline Casts Urine Mucus U [place] Prot/Creat Ratio Meds: Medications Acetaminophen (Tylenol) 650 mg PO Q6HP PRN PRN Reason: PAIN/FEVER > 101 Last Admin: 03/12/18 07:12 Dose: 650 mg Albuterol/Ipratropium (Duoneb) 3 ml NEB Q4HP PRN PRN Reason: Shortness Of Breath Or Wheezing Dextrose (Dextrose 50%) 0 ml IV UD PRN PRN Reason: Hypoglycemia Diagnostic Test (Pha) (Accu-Chek) 1 each FS [facility] Last Admin: 03/12/18 12:57 Dose: 1 each Doxycycline Hyclate (Doxycycline Hyclate) 100 mg PO BID [facility] Last Admin: 03/12/18 07:16 Dose: 100 mg Ferrous Sulfate (Ferrous Sulfate) 325 mg PO DAILY@1200 [facility] Last Admin: 03/12/18 12:59 Dose: 325 mg Glucose (Insta-Glucose) 15 gm PO PRN PRN PRN Reason: Hypoglycemia Guaifenesin (Robitussin Dm) 10 ml PO Q4HP PRN PRN Reason: Cough Hydralazine HCl (Apresoline) 10 mg IV Q4HP PRN PRN Reason: Hypertension Insulin Glargine (Lantus) 60 unit SQ [facility] Last Admin: 03/11/18 21:54 Dose: 60 unit Insulin Human Lispro (Humalog) 0 unit SQ [facility]; Protocol Last Admin: 03/12/18 12:57 Dose: Not Given Loperamide HCl (Imodium) 2 mg PO PRN PRN PRN Reason: Diarrhea Last Admin: 03/10/18 12:20 Dose: 2 mg Metoprolol Succinate (Toprol Xl) 50 mg PO [facility] Last Admin: 03/11/18 20:25 Dose: 50 mg Naloxone HCl (Narcan) 0.1 mg IV Q2MIN PRN PRN Reason: Opiate Reversal Ondansetron HCl (Zofran) 4 mg IV Q4HP PRN PRN Reason: Nausea And Vomiting Last Admin: 03/10/18 12:20 Dose: 4 mg Oxymetazoline HCl (Afrin) 3 spray IRIS BIDP PRN PRN Reason: Nasal Congestion Last Admin: 03/12/18 08:32 Dose: 1 puff Sodium Chloride (Saline Flush) 10 ml IV Q8 [facility] Last Admin: 03/12/18 12:57 Dose: 10 ml Tamsulosin HCl (Flomax) 0.4 mg PO [facility] Last Admin: 03/11/18 20:24 Dose: 0.4 mg Warfarin Sodium (Coumadin Per Pharmacy) 1 order PO [facility] Medical - PN: A/P - Time Spent With Patient Total time spent is greater than 50% in coordination of care (as documented) at patient's floor/unit and/or counseling patient: - Narrative A/P Narrative: A: *Acute on chronic systolic (45%) & likely diastolic CHF: *JERMAN on CKD III (base Cr~1.2-1.4): -Initially thought cardio-renal syndrome, but pt renal fxn worsened w/ diuresis, still has a large IVC w/poor resp variation. -renal u/s no obstruction *Anemia: likely anemia of chr disease / due to ckd -FOBT neg *HTN: *Diabetes mellitus w/retinopathy: *Morbid Obesity: outpatient follow up *H/o pulmonary embolus: on warfarin with therapeutic INR *Right lower extremity wound: *Hypoalbuminemia/Proteinuria: etiology? diabetic nephropathy? * P: -continue IV bumex for now, if has decrsaed urine output, can consider adding metolozone to the regime. -consult nephrology -cont home metoprolol, hold ARB in light of worsening renal fuctio -may d/c issorbide at the time of discharge, given pt would do better with a beta medhat than nitrate in light of chf -neprhology consult -IV iron per nephro -wound care following -SSI - -ppx: warfarin per pharm Medical - PN: Qual - VTE Deep Vein Thrombosis/Pulmonary Embolism Present on Admission: Yes
[2018-03-12] MEDS: INSULIN GLARGINE, HUMAN 1 UNIT/0.01 ML SQ SCH (20:39)
[2018-03-12] MEDS: TAMSULOSIN 0.4 MG CAPSULE PO SCH (20:40)
[2018-03-12] MEDS: METOPROLOL SUCCINATE 50 MG TAB.XL.24H PO SCH (20:40)
[2018-03-13] MEDS: 0.9 % SODIUM CHLORIDE 10 ML SYRINGE IV SCH ×3 (05:10→20:00)
[2018-03-13] MEDS: OXYMETAZOLINE 1 SPRAY BOTTLE NAS PRN ×3 (05:10→22:31)
[2018-03-13 06:35] LABS: ALT/SGPT 14 U/l (0-40); Albumin 2.8 gm/dL (3.2-5.2); Albumin/Globulin Ratio 0.7 (1.0-2.3); Alkaline Phosphatase 106 U/L (39-117); Bilirubin,Direct < 0.2 mg/dL (0.0-0.3); Blood Urea Nitrogen 25 mg/dl (8-23); Gamma Glutamyl Transpeptidase 45 U/L (8-61); Uric Acid 10.4 mg/dL (2.5-8.0)
[2018-03-13 06:39] LABS: Hepatitis B Surface Antibody POSITIVE (NEGATIVE); Hepatitis B Surface Antigen NEGATIVE (NEGATIVE); Hepatitis C Virus Antibody NON REACTIVE (NEGATIVE)
[2018-03-13 06:56] LABS: Basophils # (Auto) 0 K/mcL (0.0-0.3); Basophils % (Auto) 0.3 % (0.0-2.0); Eosinophils # (Auto) 0.1 K/mcL (0.0-0.7); Lymphocytes % (Auto) 14.4 % (15.5-49.0); Mean Cell Volume 82.5 fL (80.0-100.0); Mean Corpuscular HGB Conc 32.5 g/dL (31.0-36.0); Mean Corpuscular Hemoglobin 26.8 pg (26.0-34.0); Monocytes # (Auto) 0.7 K/mcL (0.1-0.9); Monocytes % (Auto) 10.3 % (1.0-12.0); Platelet Count 178 K/mcL (140-440); RBC 3.36 M/mcL (4.50-5.90)
--- NOTE | 2018-03-13 07:13 | Internal Med Progress Note ---
Medical - PN: Subj Patient information: Note initiated : 03/13/18 at 7:04 am Service Date, if different from initiated Date: [] Patient: Florencio Grace a 62 y/o M admitted on 03/09/18 for SOB, CHF. Chief Complaint: [] Interval history: Mr. Grace is a 62 year old M with history of diabetes, congestive heart failure hypertension morbid obesity right lower extremity wound presents to the emergency room 2 days in a row for evaluation of shortness of breath. The patient was here yesterday and the initial plan was to admit him for congestive heart failure however the patient refused. The patient was therefore follow-up with his PCP again today and he was sent back to the emergency room because of severe shortness of breath. The patient has been having shortness of breath that has been getting worse for the last 2 weeks. The patient notes that minimal activity makes him short of breath. He has gained approximately 35 pounds over the last 3 months. He attributes his weight gain to noncompliance with his oral diuretic medications. As well as increased oral intake. His lack of ability to exercise. The patient denies any other acute complaints or concerns. He has some cough which is worse when he lies down. Clear cough no hemoptysis. The patient denies any chest pain, no palpitations no headache no dizziness no GI complaints no complaints. He has significant edema in his lower extremities. The patient has followed with wound care as well as infectious disease for management of his chronic lower extremity wound. He has completed oral antibiotic course and was seen by wound care physician yesterday in the emergency room. Patient has been advised to take tetracycline for now. In the emergency room patient was afebrile heart rate 105 blood pressure 167/83 saturating 99% on room air. Hemoglobin 9.5 WBC count 8.3 platelets 222 sodium 145 potassium 3.7 bicarbonate 29 creatinine 1.4 glucose 137 BNP is 11,418 troponin negative. EKG shows sinus rhythm, old anterior inferior infarct, QS wave in V1 to V5. Left axis deviation. Chest x-ray shows bilateral atelectasis versus pneumonia congestive heart failure cardiomegaly The patient noted he has had an echocardiogram done at [facility] in the last 2 months. We will try to obtain a copy Patient will be admitted to the hospital for further management 03/10 Patient's and examined no acute overnight events. All medications reviewed. Patient is not sure why he is not on a beta-medhat. Echocardiogram done recently at [facility] I believe on 02/02/2018 reviewed. Ejection fraction was 45%. Unable to determine diastolic dysfunction. Patient has responded very well to IV diuresis. -5500 mL. Discussed with the patient intent to start patient on beta-blockers patient verbalized understanding and agreeable to treatment. labs stable, creat slightly worse at 1.5 03/11 Is examined, no acute overnight events. Last night got chlorothiazide IV and then Lasix, he did not be as much. Total urine output yesterday is 1350, he just -250 yesterday. His albumin is 2.3. He has significant proteinuria in his urine analysis. I am going to switch his diuretic regimen from Lasix to Bumex, give him a dose of metolazone before his a.m. dose of Bumex and see if he makes more urine. Sent for protein creatinine ratio, urine electrophoresis. Creatinine is 1.8, it is very likely that the patient's significant proteinuria is related to diabetes, however will rule out other causes. If the patient's renal function worsens will consider nephrology consult Patient otherwise feels much better, which is to go home. 03/12 Pt seen examined, no acute overnight issues pt is neg 7254 ml since admissin, diuresed well yesterday with metolozone and bumex, Renal functino is worsening, creat is 2.1, Hb continues to drop, now at 8.0, anemia workup sent, iron low, tibc at 10, retic 1.5, no e/o bleed prot creat ration reviewed, repeat ua is a barney sample, not sure how much importance to give to wbc/rbc, no e/o infection Pt is stable at baseline, but is very short of breath with minimal ambulation he has pain in the left knee, reports is stiff. 03/13 Slept well. No new complaints. His shortness of breath is continuing to improve. He has a mild occasional cough which is normal for him. Continue swelling in his legs. Renal function improving, diuretics held yesterday. Seen by nephrology yesterday. Review of Systems: denies headache/fever/chills/nausea/vomiting/chest or abdominal pain/cough/ dyspnea/diarrhea. Otherwise see above. - Constitutional Vitals: Vital Signs Temp Pulse Resp BP Pulse Ox 97.2 F 74 20 160/75 91 03/13/18 04:00 03/13/18 00:00 03/13/18 04:00 03/13/18 04:00 03/13/18 04:00 Period Temp Pulse Resp BP Sys/Bush Pulse Ox Last 24 Hr 97.2 F-98.5 F 74-83 20-24 129-182/61-81 91-94 Intake and Output 03/12/18 03/13/18 03/13/18 21:59 05:59 13:59 Intake Total 480 / 480 360 / 360 200 / 200 Output Total 525 / 525 800 / 800 Balance -45 / -45 -440 / -440 200 / 200 Weight 163.3 kg Intake & Output: Intake & Output 03/12/18 03/13/18 03/13/18 21:59 05:59 13:59 Intake Total 480 / 480 360 / 360 200 / 200 Output Total 525 / 525 800 / 800 Balance -45 / -45 -440 / -440 200 / 200 Weight 163.3 kg Intake: Oral 480 / 480 200 / 200 GI Tube Flush 360 / 360 Output: Urine Catheter Amount 800 / 800 Void Amount 525 / 525 Other: Meal Dinner 2 packets of grahm crackers Percent of Meal Consumed 100% 100% Feeding Ability Independent Urine Appearance Clear Uretheral (Barney) Clear Urine Color Dark Yellow Dark Yellow Uretheral (Barney) Dark Yellow Urine Odor Strong Strong Uretheral (Barney) Normal Exam: General: Alert, Awake, No acute Distress, obese Eyes/N/T: EOMI Head/Neck: neck supple, CV: RRR, 2/6 SM, Pulm: Clear b/l, no wheezing/rhonchi/rales, although diminished Abd: soft, nontender, +BS x4 Ext: no clubbing/cyanosis, b/l LE Edema 3+ Neuro: Alert, no focal deficits, moves all extremities Skin: warm/dry Medical - PN: Obj Da - Labs CBC & Chem 7: 03/13/18 04:26 03/13/18 04:26 Labs: Abnormal Lab Results 03/13/18 03/13/18 03/13/18 04:26 04:26 04:26 RBC Hgb Hct MCH RDW Lymph % (Auto) Lymph # (Auto) Absolute Retic PT 24.0 H INR 2.1 H Carbon Dioxide 32 H BUN 25 H Creatinine 1.7 H Glucose 61 L Uric Acid 10.4 H Calcium 8.5 L Phosphorus Iron TIBC Transferrin % Sat Albumin 2.8 L Globulin 4.0 H Albumin/Globulin Ratio 0.7 L Urine Protein Urine Occult Blood Ur Leukocyte Esterase Urine RBC Urine WBC Amorphous Crystals Urine Bacteria Hyaline Casts Urine Mucus U [place] Prot/Creat Ratio Hep Bs Antibody Positive A 03/13/18 03/12/18 03/12/18 04:26 10:06 04:05 RBC 3.36 L Hgb 9.0 L Hct 27.7 L MCH RDW 18.0 H Lymph % (Auto) 14.4 L Lymph # (Auto) 1.0 L Absolute Retic PT INR Carbon Dioxide 33 H BUN 27 H Creatinine 2.1 H Glucose Uric Acid 9.9 H Calcium 8.3 L Phosphorus Iron 24 L TIBC 225 L Transferrin % Sat 10 L Albumin 2.5 L Globulin 3.8 H Albumin/Globulin Ratio 0.7 L Urine Protein Urine Occult Blood Ur Leukocyte Esterase Urine RBC Urine WBC Amorphous Crystals Urine Bacteria Hyaline Casts Urine Mucus U [place] Prot/Creat Ratio Hep Bs Antibody 03/12/18 03/12/18 03/12/18 04:05 04:05 03:45 RBC 3.07 L Hgb 8.0 L Hct 25.5 L MCH RDW 17.9 H Lymph % (Auto) Lymph # (Auto) 1.2 L Absolute Retic 1.6 H PT 27.8 H INR 2.6 H Carbon Dioxide BUN Creatinine Glucose Uric Acid Calcium Phosphorus Iron TIBC Transferrin % Sat Albumin Globulin Albumin/Globulin Ratio Urine Protein Urine Occult Blood Ur Leukocyte Esterase Urine RBC Urine WBC Amorphous Crystals Urine Bacteria Hyaline Casts Urine Mucus U [place] Prot/Creat Ratio Hep Bs Antibody 03/11/18 03/11/18 03/11/18 13:15 10:51 10:51 RBC Hgb Hct MCH RDW Lymph % (Auto) Lymph # (Auto) Absolute Retic PT INR Carbon Dioxide BUN 24 H Creatinine 2.0 H Glucose 210 H Uric Acid Calcium 8.2 L Phosphorus Iron TIBC Transferrin % Sat Albumin Globulin Albumin/Globulin Ratio Urine Protein 100 A Urine Occult Blood 0.2 A Ur Leukocyte Esterase 250 A Urine RBC 153 H Urine WBC 20 H Amorphous Crystals Few A Urine Bacteria Few A Hyaline Casts 200 H Urine Mucus Many A U [place] Prot/Creat Ratio 1.04 H Hep Bs Antibody 03/11/18 03/11/18 03/11/18 03:50 03:50 03:50 RBC 3.25 L Hgb 8.4 L Hct 26.9 L MCH 25.8 L RDW 17.7 H Lymph % (Auto) Lymph # (Auto) 1.2 L Absolute Retic PT 30.1 H INR 2.8 H Carbon Dioxide BUN Creatinine 1.8 H Glucose 122 H Uric Acid 8.4 H Calcium 8.0 L Phosphorus 4.8 H Iron TIBC Transferrin % Sat Albumin 2.3 L Globulin 4.3 H Albumin/Globulin Ratio 0.5 L Urine Protein Urine Occult Blood Ur Leukocyte Esterase Urine RBC Urine WBC Amorphous Crystals Urine Bacteria Hyaline Casts Urine Mucus U [place] Prot/Creat Ratio Hep Bs Antibody 03/10/18 03/10/18 03/10/18 06:28 06:28 06:28 RBC 3.41 L Hgb 9.2 L Hct 28.1 L MCH RDW 17.9 H Lymph % (Auto) Lymph # (Auto) 1.1 L Absolute Retic PT 28.1 H INR 2.6 H Carbon Dioxide 31 H BUN Creatinine 1.5 H Glucose 184 H Uric Acid Calcium 8.3 L Phosphorus Iron TIBC Transferrin % Sat Albumin 2.8 L Globulin 4.1 H Albumin/Globulin Ratio 0.7 L Urine Protein Urine Occult Blood Ur Leukocyte Esterase Urine RBC Urine WBC Amorphous Crystals Urine Bacteria Hyaline Casts Urine Mucus U [place] Prot/Creat Ratio Hep Bs Antibody Meds: Medications Acetaminophen (Tylenol) 650 mg PO Q6HP PRN PRN Reason: PAIN/FEVER > 101 Last Admin: 03/12/18 15:24 Dose: 650 mg Albuterol/Ipratropium (Duoneb) 3 ml NEB Q4HP PRN PRN Reason: Shortness Of Breath Or Wheezing Dextrose (Dextrose 50%) 0 ml IV UD PRN PRN Reason: Hypoglycemia Diagnostic Test (Pha) (Accu-Chek) 1 each FS [facility] Last Admin: 03/12/18 20:40 Dose: 1 each Doxycycline Hyclate (Doxycycline Hyclate) 100 mg PO BID [facility] Last Admin: 03/12/18 20:40 Dose: 100 mg Ferrous Sulfate (Ferrous Sulfate) 325 mg PO DAILY@1200 [facility] Last Admin: 03/12/18 12:59 Dose: 325 mg Glucose (Insta-Glucose) 15 gm PO PRN PRN PRN Reason: Hypoglycemia Guaifenesin (Robitussin Dm) 10 ml PO Q4HP PRN PRN Reason: Cough Hydralazine HCl (Apresoline) 10 mg IV Q4HP PRN PRN Reason: Hypertension Insulin Glargine (Lantus) [address] [facility] Last Admin: 03/12/18 20:39 Dose: 60 unit Insulin Human Lispro (Humalog) 0 unit SQ [facility]; Protocol Last Admin: 03/12/18 20:39 Dose: 6 unit Loperamide HCl (Imodium) 2 mg PO PRN PRN PRN Reason: Diarrhea Last Admin: 03/10/18 12:20 Dose: 2 mg Metoprolol Succinate (Toprol Xl) [address] [facility] Last Admin: 03/12/18 20:40 Dose: 50 mg Naloxone HCl (Narcan) 0.1 mg IV Q2MIN PRN PRN Reason: Opiate Reversal Ondansetron HCl (Zofran) 4 mg IV Q4HP PRN PRN Reason: Nausea And Vomiting Last Admin: 03/10/18 12:20 Dose: 4 mg Oxymetazoline HCl (Afrin) 3 spray IRIS BIDP PRN PRN Reason: Nasal Congestion Last Admin: 03/13/18 05:10 Dose: 3 puff Sodium Chloride (Saline Flush) 10 ml IV Q8 [facility] Last Admin: 03/13/18 05:10 Dose: 10 ml Tamsulosin HCl (Flomax) 0.[address] [facility] Last Admin: 03/12/18 20:40 Dose: 0.4 mg Warfarin Sodium (Coumadin Per Pharmacy) 1 order PO [facility] - PN: A/P - Time Spent With Patient Total time spent is greater than 50% in coordination of care (as documented) at patient's floor/unit and/or counseling patient: - Narrative A/P Narrative: A: *Acute on chronic systolic (45%) & likely diastolic CHF: -now on room air from 2L's *JERMAN on CKD III (base Cr~1.2-1.4): -Initially thought cardio-renal syndrome, but pt renal fxn worsened w/ diuresis, still has a large IVC w/poor resp variation. -renal u/s no obstruction -1.7<2.1 *Anemia: likely anemia of chr disease / due to ckd -FOBT neg -stable *HTN: *Diabetes mellitus w/retinopathy: *Morbid Obesity: outpatient follow up *H/o pulmonary embolus: on warfarin with therapeutic INR *Right lower extremity wound: *Hypoalbuminemia/Proteinuria: etiology? diabetic nephropathy? *Obesity P: -diuretics per Nephrology -cont home metoprolol, hold ARB in light of worsening renal fuctio -may d/c issorbide at the time of discharge, given pt would do better with a beta medhat than nitrate in light of chf -IV iron per nephro -wound care following/Dr. Michelle; cont doxy as per ID -SSI -PT/OT -BRYAN/MAYELA wraps -ppx: warfarin per pharm Medical - PN: Qual - VTE Deep Vein Thrombosis/Pulmonary Embolism Present on Admission: Yes
[2018-03-13] MEDS: ACETAMINOPHEN 325 MG TABLET PO PRN (08:26)
[2018-03-13] MEDS: DOXYCYCLINE HYCLATE 100 MG TABLET.ORL PO SCH ×2 (08:28→19:59)
[2018-03-13] MEDS: INSULIN LISPRO 1 UNIT/0.01 ML UNIT SQ SCH ×4 (08:30→20:01)
--- NOTE | 2018-03-13 08:57 | XRay Report ---
CLINICAL INFORMATION: f/u chf, ?atelectasis COMPARISON: 03/11/2018 FINDINGS: Moderate cardiomegaly is unchanged. Mediastinum is unremarkable. Pulmonary vessels are mildly distended with mild interstitial edema throughout both lungs. Moderate left and smaller right basilar infiltrate and/or atelectasis have improved. Moderate left pleural effusion is unchanged IMPRESSION: 1. Mild/moderate CHF - worsening 2. Moderate left pleural effusion - stable 3. Moderate left and small right basilar and/or atelectasis - improving Interpreted and Authenticated by: Elmo Youngblood 03/13/18
[2018-03-13] MEDS ORDERED: FUROSEMIDE 100 MG/10 ML VIAL IV ONE (09:50)
[2018-03-13] MEDS: FERROUS SULFATE 325 MG TABLET PO SCH (12:32)
[2018-03-13] MEDS ORDERED: IRON SUCROSE COMPLEX 100 MG/5 ML VIAL IV ONE (13:25)
--- NOTE | 2018-03-13 13:31 | Nephrology Progress Note ---
Subjective Patient information: Note initiated : 03/13/18 at 1:26 pm Service Date, if different from initiated Date: [] Patient: Florencio Grace 62 y/o M admitted on 03/09/18 for SOB, CHF. Chief Complaint: [] Principal diagnosis: CHF Interval history: Patient denies SOB, CP persistent edema but better than before diuretics held yesterday, resumed today with good response s.creatinine down to 1.7 no other overnight events reported Pertinent ROS: as above Objective - Vital Signs Vital signs: Vital Signs Temp Pulse Resp BP Pulse Ox 03/13/18 12:00 97.1 F 24 H 167/68 94 03/13/18 08:00 97.0 F 20 176/76 94 03/13/18 04:00 97.2 F 20 160/75 91 03/13/18 00:00 98.1 F 74 22 156/73 91 03/12/18 20:00 98.5 F 24 H 175/72 93 03/12/18 15:47 97.4 F 24 H 171/80 92 03/12/18 15:45 171/80 03/12/18 15:41 177/81 03/12/18 15:37 182/72 92 Intake and Output 03/12/18 03/13/18 03/13/18 21:59 05:59 13:59 Intake Total 480 / 480 360 / 360 200 / 200 Output Total 525 / 525 800 / 800 2049 Balance -45 / -45 -440 / -440 -1850 / -1850 Intake: Oral 480 / 480 200 / 200 GI Tube Flush 360 / 360 Output: Urine Catheter Amount 800 / 800 2049 Void Amount 525 / 525 Other: Meal Dinner 2 packets of grahm crackers Lunch Percent of Meal Consumed 100% 100% 75% Feeding Ability Independent Independent Urine Appearance Clear Clear Uretheral (Mayo) Clear Urine Color Dark Yellow Dark Yellow Uretheral (Mayo) Dark Yellow Urine Odor Strong Strong Uretheral (Mayo) Normal Stool Size Large Stool Color Brown Stool Consistency Soft Formed # Bowel Movements 1 Weight 360 lb 0.238 oz 360 lb 0.238 oz Patient Weight 03/14/18 05:59 Weight 360 lb 0.238 oz Intake & Output: Intake & Output 03/12/18 03/13/18 03/13/18 21:59 05:59 13:59 Intake Total 480 / 480 360 / 360 200 / 200 Output Total 525 / 525 800 / 800 2049 Balance -45 / -45 -440 / -440 -1850 / -1850 Weight 360 lb 0.238 oz 360 lb 0.238 oz Intake: Oral 480 / 480 200 / 200 GI Tube Flush 360 / 360 Output: Urine Catheter Amount 800 / 800 2049 Void Amount 525 / 525 Other: Meal Dinner 2 packets of grahm crackers Lunch Percent of Meal Consumed 100% 100% 75% Feeding Ability Independent Independent Urine Appearance Clear Clear Uretheral (Mayo) Clear Urine Color Dark Yellow Dark Yellow Uretheral (Mayo) Dark Yellow Urine Odor Strong Strong Uretheral (Mayo) Normal Stool Size Large Stool Color Brown Stool Consistency Soft Formed # Bowel Movements 1 - General Appearance General appearance: appears started age, obese Neck: no JVD Respiratory: clear (reduced air entry at bases) Cardiology: no rub, edema, normal S1, normal S2 Gastrointestinal: no tenderness, no guarding Integumentary: warm and dry Neurologic: alert and oriented x3 Musculoskeletal: no deformities, no erythema Psychiatric: mood/affect appropriate - Lab 03/13/18 04:26 03/13/18 04:26 Most recent lab results Calcium 8.5 mg/dl (8.6-10.4) L 03/13/18 04:26 Phosphorus 3.4 mg/dL (2.7-4.5) 03/13/18 04:26 Magnesium 2.1 mg/dL (1.6-2.5) 03/13/18 04:26 Assessment and Plan - Narrative A/P Narrative: Acute on chronic renal failure Proteinuria S.creatinine 1.7 today, egfr 40ml/min s.creatinine was 1.4 on admission, last year s.creatinine has been 1.3-1.8 UA with proteinuria, hyaline casts, RBC(this was on cath sample) \renal US shows no e/o obstruction CKD likely from DM type2 (has retinopathy), HTN, CHF renal function stable for now hepatitis B and C negative, normal complements, spep/upep pending furosemide at 60mg IV bid, goal of 2-3L net negative renal issues discussed with the patient please dose meds to egfr, avoid nephrotoxic meds anemia: low iron stores and CKD contributing ct IV iron, once replete may need aranesp stool occult blood was reported to be negative spep/upep pending CHF: furosemide 60mg IV bid on beta blockers will resume arb once s.creatinine is in steady state malnutrition:start nepro bid HTN: will follow and optimize meds if needed Will follow along Thank you for giving me an opportunity to participate in Mr Grace's medical care, appreciate it
[2018-03-13] MEDS ORDERED: WARFARIN 5 MG TABLET PO ONE (14:00)
[2018-03-13] MEDS ORDERED: FUROSEMIDE 100 MG/10 ML VIAL IV SCH (16:00)
[2018-03-13] MEDS: FUROSEMIDE 100 MG/10 ML VIAL IV SCH (16:56)
--- NOTE | 2018-03-13 17:40 | General Surgery Progress Note ---
Subjective Narrative: Note initiated : 03/13/18 at 5:38 pm Service Date, if different from initiated Date: [] Patient: Florencio Grace 62 y/o M admitted on 03/09/18 for SOB, CHF. Chief Complaint: [] Patient seen in room 116. He is feeling better. Able to speak in full sentences and shortness of breath has resolved. Serum creatinine trending down. He now complains of osteoarthritis pain left knee and would like to be evaluated by physical therapy / orthopedics ARY for recommendations regarding treatment and weight-bearing especially on the right leg. He has had an ankle joint replacement in the past right lower extremity Objective Temp Pulse Resp BP Pulse Ox 96.4 F L 79 24 H 161/74 91 03/13/18 16:00 03/13/18 08:00 03/13/18 16:00 03/13/18 16:00 03/13/18 16:00 - Additional Data Intake & Output - Last 24 hours: Intake & Output 03/11/18 03/12/18 03/13/18 03/14/18 05:59 05:59 05:59 05:59 Intake Total 1100 / 1100 720 / 720 1080 / 1080 200 / 200 Output Total 1350 / 1350 3105 / 3105 1325 / 1325 3550 / 3550 Balance -250 / -250 -2385 / -2385 -245 / -245 -3350 / -3350 Weight 354 lb 3.2 oz 360 lb 0.238 oz 360 lb 0.238 oz 360 lb 0.238 oz 03/13/18 17:41 No acute interval changes and clinical examination of lower extremities right and left. - Labs 03/13/18 04:26 03/13/18 04:26 Diabetes panel 03/13/18 Range/Units 04:26 Sodium 142 (133-145) mmol/L Potassium 3.6 (3.3-5.1) mmol/L Chloride 99 (96-108) mmol/L Carbon Dioxide 32 H (22-30) mmol/L BUN 25 H (8-23) mg/dl Creatinine 1.7 H (0.7-1.2) mg/dl Glucose 61 L (70-105) mg/dL Calcium 8.5 L (8.6-10.4) mg/dl AST 23 (0-37) U/l ALT 14 (0-40) U/l Alkaline Phosphatase 106 (39-117) U/L Total Protein 6.8 (5.9-8.4) gm/dL Albumin 2.8 L (3.2-5.2) gm/dL Triglycerides 66 (<150) mg/dl Calcium panel 03/13/18 Range/Units 04:26 Calcium 8.5 L (8.6-10.4) mg/dl Phosphorus 3.4 (2.7-4.5) mg/dL Albumin 2.8 L (3.2-5.2) gm/dL Pituitary panel 03/13/18 Range/Units 04:26 Sodium 142 (133-145) mmol/L Potassium 3.6 (3.3-5.1) mmol/L Chloride 99 (96-108) mmol/L Carbon Dioxide 32 H (22-30) mmol/L BUN 25 H (8-23) mg/dl Creatinine 1.7 H (0.7-1.2) mg/dl Glucose 61 L (70-105) mg/dL Calcium 8.5 L (8.6-10.4) mg/dl Adrenal panel 03/13/18 Range/Units 04:26 Sodium 142 (133-145) mmol/L Potassium 3.6 (3.3-5.1) mmol/L Chloride 99 (96-108) mmol/L Carbon Dioxide 32 H (22-30) mmol/L BUN 25 H (8-23) mg/dl Creatinine 1.7 H (0.7-1.2) mg/dl Glucose 61 L (70-105) mg/dL Calcium 8.5 L (8.6-10.4) mg/dl Total Bilirubin 0.3 (0.0-1.0) mg/dL AST 23 (0-37) U/l ALT 14 (0-40) U/l Alkaline Phosphatase 106 (39-117) U/L Total Protein 6.8 (5.9-8.4) gm/dL Albumin 2.8 L (3.2-5.2) gm/dL Assessment and Plan (1) Dermatitis of lower extremity Status: Chronic Current Visit: Yes - Narrative A/P Narrative: Assessment: Stable from wound care point of view. Plan: Continue current management. - Time Spent With Patient Total time spent is greater than 50% in coordination of care (as documented) at patient's floor/unit and/or counseling patient: less than 15 minutes
[2018-03-13] MEDS: METOPROLOL SUCCINATE 50 MG TAB.XL.24H PO SCH (20:00)
[2018-03-13] MEDS: TAMSULOSIN 0.4 MG CAPSULE PO SCH (20:00)
[2018-03-13] MEDS: INSULIN GLARGINE, HUMAN 1 UNIT/0.01 ML SQ SCH (20:00)
[2018-03-13] MEDS: ONDANSETRON 4 MG/2 ML VIAL IV PRN (21:16)
--- NOTE | 2018-03-14 05:21 | Internal Med Progress Note ---
Medical - PN: Subj Patient information: Note initiated : 03/14/18 at 5:18 am Service Date, if different from initiated Date: [] Patient: Florencio Grace a 62 y/o M admitted on 03/09/18 for SOB, CHF. Chief Complaint: [] Interval history: Mr. Grace is a 62 year old M with history of diabetes, congestive heart failure hypertension morbid obesity right lower extremity wound presents to the emergency room 2 days in a row for evaluation of shortness of breath. The patient was here yesterday and the initial plan was to admit him for congestive heart failure however the patient refused. The patient was therefore follow-up with his PCP again today and he was sent back to the emergency room because of severe shortness of breath. The patient has been having shortness of breath that has been getting worse for the last 2 weeks. The patient notes that minimal activity makes him short of breath. He has gained approximately 35 pounds over the last 3 months. He attributes his weight gain to noncompliance with his oral diuretic medications. As well as increased oral intake. His lack of ability to exercise. The patient denies any other acute complaints or concerns. He has some cough which is worse when he lies down. Clear cough no hemoptysis. The patient denies any chest pain, no palpitations no headache no dizziness no GI complaints no complaints. He has significant edema in his lower extremities. The patient has followed with wound care as well as infectious disease for management of his chronic lower extremity wound. He has completed oral antibiotic course and was seen by wound care physician yesterday in the emergency room. Patient has been advised to take tetracycline for now. In the emergency room patient was afebrile heart rate 105 blood pressure 167/83 saturating 99% on room air. Hemoglobin 9.5 WBC count 8.3 platelets 222 sodium 145 potassium 3.7 bicarbonate 29 creatinine 1.4 glucose 137 BNP is 11,418 troponin negative. EKG shows sinus rhythm, old anterior inferior infarct, QS wave in V1 to V5. Left axis deviation. Chest x-ray shows bilateral atelectasis versus pneumonia congestive heart failure cardiomegaly The patient noted he has had an echocardiogram done at [facility] in the last 2 months. We will try to obtain a copy Patient will be admitted to the hospital for further management 03/10 Patient's and examined no acute overnight events. All medications reviewed. Patient is not sure why he is not on a beta-medhat. Echocardiogram done recently at [facility] I believe on 02/02/2018 reviewed. Ejection fraction was 45%. Unable to determine diastolic dysfunction. Patient has responded very well to IV diuresis. -5500 mL. Discussed with the patient intent to start patient on beta-blockers patient verbalized understanding and agreeable to treatment. labs stable, creat slightly worse at 1.5 03/11 Is examined, no acute overnight events. Last night got chlorothiazide IV and then Lasix, he did not be as much. Total urine output yesterday is 1350, he just -250 yesterday. His albumin is 2.3. He has significant proteinuria in his urine analysis. I am going to switch his diuretic regimen from Lasix to Bumex, give him a dose of metolazone before his a.m. dose of Bumex and see if he makes more urine. Sent for protein creatinine ratio, urine electrophoresis. Creatinine is 1.8, it is very likely that the patient's significant proteinuria is related to diabetes, however will rule out other causes. If the patient's renal function worsens will consider nephrology consult Patient otherwise feels much better, which is to go home. 03/12 Pt seen examined, no acute overnight issues pt is neg 7254 ml since admissin, diuresed well yesterday with metolozone and bumex, Renal functino is worsening, creat is 2.1, Hb continues to drop, now at 8.0, anemia workup sent, iron low, tibc at 10, retic 1.5, no e/o bleed prot creat ration reviewed, repeat ua is a barney sample, not sure how much importance to give to wbc/rbc, no e/o infection Pt is stable at baseline, but is very short of breath with minimal ambulation he has pain in the left knee, reports is stiff. 03/13 Slept well. No new complaints. His shortness of breath is continuing to improve. He has a mild occasional cough which is normal for him. Continue swelling in his legs. Renal function improving, diuretics held yesterday. Seen by nephrology yesterday. 03/14 Slept well no overnight events. Did have an episode of nausea vomiting last night after medication. Review of Systems: denies headache/fever/chills/nausea/vomiting/chest or abdominal pain/cough/ dyspnea/diarrhea. Otherwise see above. - Constitutional Vitals: Vital Signs Temp Pulse Resp BP Pulse Ox 98.9 F 68 22 150/80 92 03/14/18 04:00 03/14/18 04:00 03/14/18 04:00 03/14/18 04:00 03/14/18 04:00 Period Temp Pulse Resp BP Sys/Bush Pulse Ox Last 24 Hr 96.4 F-99.9 F 68-79 20-28 145-183/68-80 75-94 Intake and Output 03/13/18 03/13/18 03/14/18 13:59 21:59 05:59 Intake Total 200 / 200 Output Total 2049 1500 / 1500 1300 / 1300 Balance -1850 / -1850 -1500 / -1500 -1300 / -1300 Weight 163.3 kg 176.901 kg Patient Weight 03/14/18 05:59 Weight 176.901 kg Intake & Output: Intake & Output 03/13/18 03/13/18 03/14/18 13:59 21:59 05:59 Intake Total 200 / 200 Output Total 2049 1500 / 1500 1300 / 1300 Balance -1850 / -1850 -1500 / -1500 -1300 / -1300 Weight 163.3 kg 176.901 kg Intake: Oral 200 / 200 Output: Urine Catheter Amount 2049 1500 / 1500 1300 / 1300 Other: Meal Lunch Dinner Percent of Meal Consumed 75% 100% Feeding Ability Independent Independent Urine Appearance Clear Clear Uretheral (Barney) Clear Clear Urine Color Dark Yellow Pale Uretheral (Barney) Dark Yellow Bright Yellow Urine Odor Strong Normal Uretheral (Barney) Normal Normal Stool Size Large Moderate Stool Color Brown Brown Stool Consistency Soft Soft Formed Formed # Bowel Movements 1 Exam: General: Alert, Awake, No acute Distress, obese Eyes/N/T: EOMI Head/Neck: neck supple, CV: RRR, 2/6 SM, Pulm: Clear b/l, no wheezing/rhonchi/rales, although diminished Abd: soft, nontender, +BS x4 Ext: no clubbing/cyanosis, b/l LE Edema 1+ improving Neuro: Alert, no focal deficits, moves all extremities Skin: warm/dry Medical - PN: Obj Da - Labs CBC & Chem 7: 03/13/18 04:26 03/14/18 04:00 Labs: Abnormal Lab Results 03/14/18 03/13/18 03/13/18 04:00 04:26 04:26 RBC Hgb Hct RDW Lymph % (Auto) Lymph # (Auto) Absolute Retic PT 23.9 H INR 2.1 H Carbon Dioxide 32 H BUN 25 H Creatinine 1.7 H Glucose 61 L Uric Acid 10.4 H Calcium 8.5 L Iron TIBC Transferrin % Sat Albumin 2.8 L Globulin 4.0 H Albumin/Globulin Ratio 0.7 L Urine Protein Urine Occult Blood Ur Leukocyte Esterase Urine RBC Urine WBC Amorphous Crystals Urine Bacteria Hyaline Casts Urine Mucus U [place] Prot/Creat Ratio Hep Bs Antibody Positive A 03/13/18 03/13/18 03/12/18 04:26 04:26 10:06 RBC 3.36 L Hgb 9.0 L Hct 27.7 L RDW 18.0 H Lymph % (Auto) 14.4 L Lymph # (Auto) 1.0 L Absolute Retic PT 24.0 H INR 2.1 H Carbon Dioxide BUN Creatinine Glucose Uric Acid Calcium Iron 24 L TIBC 225 L Transferrin % Sat 10 L Albumin Globulin Albumin/Globulin Ratio Urine Protein Urine Occult Blood Ur Leukocyte Esterase Urine RBC Urine WBC Amorphous Crystals Urine Bacteria Hyaline Casts Urine Mucus U [place] Prot/Creat Ratio Hep Bs Antibody 03/12/18 03/12/18 03/12/18 04:05 04:05 04:05 RBC 3.07 L Hgb 8.0 L Hct 25.5 L RDW 17.9 H Lymph % (Auto) Lymph # (Auto) 1.2 L Absolute Retic PT 27.8 H INR 2.6 H Carbon Dioxide 33 H BUN 27 H Creatinine 2.1 H Glucose Uric Acid 9.9 H Calcium 8.3 L Iron TIBC Transferrin % Sat Albumin 2.5 L Globulin 3.8 H Albumin/Globulin Ratio 0.7 L Urine Protein Urine Occult Blood Ur Leukocyte Esterase Urine RBC Urine WBC Amorphous Crystals Urine Bacteria Hyaline Casts Urine Mucus U [place] Prot/Creat Ratio Hep Bs Antibody 03/12/18 03/11/18 03/11/18 03:45 13:15 10:51 RBC Hgb Hct RDW Lymph % (Auto) Lymph # (Auto) Absolute Retic 1.6 H PT INR Carbon Dioxide BUN 24 H Creatinine 2.0 H Glucose 210 H Uric Acid Calcium 8.2 L Iron TIBC Transferrin % Sat Albumin Globulin Albumin/Globulin Ratio Urine Protein 100 A Urine Occult Blood 0.2 A Ur Leukocyte Esterase 250 A Urine RBC 153 H Urine WBC 20 H Amorphous Crystals Few A Urine Bacteria Few A Hyaline Casts 200 H Urine Mucus Many A U [place] Prot/Creat Ratio Hep Bs Antibody 03/11/18 10:51 RBC Hgb Hct RDW Lymph % (Auto) Lymph # (Auto) Absolute Retic PT INR Carbon Dioxide BUN Creatinine Glucose Uric Acid Calcium Iron TIBC Transferrin % Sat Albumin Globulin Albumin/Globulin Ratio Urine Protein Urine Occult Blood Ur Leukocyte Esterase Urine RBC Urine WBC Amorphous Crystals Urine Bacteria Hyaline Casts Urine Mucus U [place] Prot/Creat Ratio 1.04 H Hep Bs Antibody Meds: Medications Acetaminophen (Tylenol) 650 mg PO Q6HP PRN PRN Reason: PAIN/FEVER > 101 Last Admin: 03/13/18 08:26 Dose: 650 mg Albuterol/Ipratropium (Duoneb) 3 ml NEB Q4HP PRN PRN Reason: Shortness Of Breath Or Wheezing Dextrose (Dextrose 50%) 0 ml IV UD PRN PRN Reason: Hypoglycemia Diagnostic Test (Pha) (Accu-Chek) 1 each FS [facility] Last Admin: 03/13/18 20:00 Dose: 1 each Doxycycline Hyclate (Doxycycline Hyclate) 100 mg PO BID [facility] Last Admin: 03/13/18 19:59 Dose: 100 mg Ferrous Sulfate (Ferrous Sulfate) 325 mg PO DAILY@1200 [facility] Last Admin: 03/13/18 12:32 Dose: 325 mg Furosemide (Lasix) 60 mg IV BIDD [facility] Last Admin: 03/13/18 16:56 Dose: 60 mg Glucose (Insta-Glucose) 15 gm PO PRN PRN PRN Reason: Hypoglycemia Guaifenesin (Robitussin Dm) 10 ml PO Q4HP PRN PRN Reason: Cough Hydralazine HCl (Apresoline) 10 mg IV Q4HP PRN PRN Reason: Hypertension Insulin Glargine (Lantus) 60 unit SQ [facility] Last Admin: 03/13/18 20:00 Dose: 60 unit Insulin Human Lispro (Humalog) 0 unit SQ [facility]; Protocol Last Admin: 03/13/18 20:01 Dose: 2 unit Loperamide HCl (Imodium) 2 mg PO PRN PRN PRN Reason: Diarrhea Last Admin: 03/10/18 12:20 Dose: 2 mg Metoprolol Succinate (Toprol Xl) 50 mg PO HS [facility] Last Admin: 03/13/18 20:00 Dose: 50 mg Naloxone HCl (Narcan) 0.1 mg IV Q2MIN PRN PRN Reason: Opiate Reversal Ondansetron HCl (Zofran) 4 mg IV Q4HP PRN PRN Reason: Nausea And Vomiting Last Admin: 03/13/18 21:16 Dose: 4 mg Oxymetazoline HCl (Afrin) 3 spray IRIS BIDP PRN PRN Reason: Nasal Congestion Last Admin: 03/13/18 22:31 Dose: 3 puff Sodium Chloride (Saline Flush) 10 ml IV Q8 [facility] Last Admin: 03/13/18 20:00 Dose: 10 ml Tamsulosin HCl (Flomax) 0.4 mg PO HS [facility] Last Admin: 03/13/18 20:00 Dose: 0.4 mg Warfarin Sodium (Coumadin Per Pharmacy) 1 order PO UD [facility] Medical - PN: A/P - Time Spent With Patient Total time spent is greater than 50% in coordination of care (as documented) at patient's floor/unit and/or counseling patient: - Narrative A/P Narrative: A: *Acute on chronic systolic (45%) & likely diastolic CHF: -required supp O2 last night -significant diuresis -peripheral edema improving now *JERMAN on CKD III (base Cr~1.2-1.4): -Initially thought cardio-renal syndrome, but pt renal fxn worsened w/ diuresis, still has a large IVC w/poor resp variation. -renal u/s no obstruction -1.5<<2.1 *Anemia: likely anemia of chr disease / due to ckd -FOBT neg -stable *HTN: *Diabetes mellitus w/retinopathy: *Morbid Obesity: outpatient follow up *H/o pulmonary embolus: on warfarin with therapeutic INR *Right lower extremity wound: *Hypoalbuminemia/Proteinuria: etiology? diabetic nephropathy? *Obesity P: -diuretics per Nephrology -cont home metoprolol, hold ARB in light of renal fxn -IV iron per nephro -wound care following/Dr. Michelle; cont doxy as per ID -SSI -PT/OT -BRYAN/MAYELA wraps -ppx: warfarin per pharm Medical - PN: Qual - VTE Deep Vein Thrombosis/Pulmonary Embolism Present on Admission: Yes
[2018-03-14 05:34] LABS: Blood Urea Nitrogen 24 mg/dl (8-23)
[2018-03-14 05:43] LABS: ALT/SGPT 12 U/l (0-40); Albumin 2.5 gm/dL (3.2-5.2); Albumin/Globulin Ratio 0.7 (1.0-2.3); Alkaline Phosphatase 102 U/L (39-117); Bilirubin,Direct < 0.2 mg/dL (0.0-0.3); Blood Urea Nitrogen 24 mg/dl (8-23); Gamma Glutamyl Transpeptidase 41 U/L (8-61); Uric Acid 11.1 mg/dL (2.5-8.0)
[2018-03-14] MEDS: 0.9 % SODIUM CHLORIDE 10 ML SYRINGE IV SCH ×3 (06:00→21:15)
[2018-03-14] MEDS: INSULIN LISPRO 1 UNIT/0.01 ML UNIT SQ SCH ×4 (08:00→21:23)
[2018-03-14] MEDS: FUROSEMIDE 100 MG/10 ML VIAL IV SCH (08:04)
[2018-03-14] MEDS: ACETAMINOPHEN 325 MG TABLET PO PRN (09:01)
[2018-03-14] MEDS: DOXYCYCLINE HYCLATE 100 MG TABLET.ORL PO SCH ×2 (09:01→21:22)
[2018-03-14] MEDS: OXYMETAZOLINE 1 SPRAY BOTTLE NAS PRN ×2 (09:01→17:48)
[2018-03-14] MEDS: FERROUS SULFATE 325 MG TABLET PO SCH (12:29)
[2018-03-14] MEDS ORDERED: WARFARIN 5 MG TABLET PO ONE (14:00)
[2018-03-14] MEDS: TAMSULOSIN 0.4 MG CAPSULE PO SCH (21:14)
[2018-03-14] MEDS: METOPROLOL SUCCINATE 50 MG TAB.XL.24H PO SCH (21:14)
[2018-03-14] MEDS: INSULIN GLARGINE, HUMAN 1 UNIT/0.01 ML SQ SCH (21:21)
[2018-03-15] MEDS: OXYMETAZOLINE 1 SPRAY BOTTLE NAS PRN ×3 (03:54→21:06)
[2018-03-15] MEDS: 0.9 % SODIUM CHLORIDE 10 ML SYRINGE IV SCH ×3 (05:54→21:08)
[2018-03-15 06:01] LABS: ALT/SGPT 11 U/l (0-40); Albumin 2.5 gm/dL (3.2-5.2); Albumin/Globulin Ratio 0.6 (1.0-2.3); Alkaline Phosphatase 106 U/L (39-117); Bilirubin,Direct < 0.2 mg/dL (0.0-0.3); Blood Urea Nitrogen 25 mg/dl (8-23); Gamma Glutamyl Transpeptidase 41 U/L (8-61)
[2018-03-15] MEDS ORDERED: hydrALAZINE 20 MG/ML VIAL IV PRN (07:05)
--- NOTE | 2018-03-15 07:07 | Internal Med Progress Note ---
Medical - PN: Subj Patient information: Note initiated : 03/15/18 at 7:02 am Service Date, if different from initiated Date: [] Patient: Florencio Grace a 62 y/o M admitted on 03/09/18 for SOB, CHF. Chief Complaint: [] Interval history: Mr. Grace is a 62 year old M with history of diabetes, congestive heart failure hypertension morbid obesity right lower extremity wound presents to the emergency room 2 days in a row for evaluation of shortness of breath. The patient was here yesterday and the initial plan was to admit him for congestive heart failure however the patient refused. The patient was therefore follow-up with his PCP again today and he was sent back to the emergency room because of severe shortness of breath. The patient has been having shortness of breath that has been getting worse for the last 2 weeks. The patient notes that minimal activity makes him short of breath. He has gained approximately 35 pounds over the last 3 months. He attributes his weight gain to noncompliance with his oral diuretic medications. As well as increased oral intake. His lack of ability to exercise. The patient denies any other acute complaints or concerns. He has some cough which is worse when he lies down. Clear cough no hemoptysis. The patient denies any chest pain, no palpitations no headache no dizziness no GI complaints no complaints. He has significant edema in his lower extremities. The patient has followed with wound care as well as infectious disease for management of his chronic lower extremity wound. He has completed oral antibiotic course and was seen by wound care physician yesterday in the emergency room. Patient has been advised to take tetracycline for now. In the emergency room patient was afebrile heart rate 105 blood pressure 167/83 saturating 99% on room air. Hemoglobin 9.5 WBC count 8.3 platelets 222 sodium 145 potassium 3.7 bicarbonate 29 creatinine 1.4 glucose 137 BNP is 11,418 troponin negative. EKG shows sinus rhythm, old anterior inferior infarct, QS wave in V1 to V5. Left axis deviation. Chest x-ray shows bilateral atelectasis versus pneumonia congestive heart failure cardiomegaly The patient noted he has had an echocardiogram done at [facility] in the last 2 months. We will try to obtain a copy Patient will be admitted to the hospital for further management 03/10 Patient's and examined no acute overnight events. All medications reviewed. Patient is not sure why he is not on a beta-medhat. Echocardiogram done recently at [facility] I believe on 02/02/2018 reviewed. Ejection fraction was 45%. Unable to determine diastolic dysfunction. Patient has responded very well to IV diuresis. -5500 mL. Discussed with the patient intent to start patient on beta-blockers patient verbalized understanding and agreeable to treatment. labs stable, creat slightly worse at 1.5 03/11 Is examined, no acute overnight events. Last night got chlorothiazide IV and then Lasix, he did not be as much. Total urine output yesterday is 1350, he just -250 yesterday. His albumin is 2.3. He has significant proteinuria in his urine analysis. I am going to switch his diuretic regimen from Lasix to Bumex, give him a dose of metolazone before his a.m. dose of Bumex and see if he makes more urine. Sent for protein creatinine ratio, urine electrophoresis. Creatinine is 1.8, it is very likely that the patient's significant proteinuria is related to diabetes, however will rule out other causes. If the patient's renal function worsens will consider nephrology consult Patient otherwise feels much better, which is to go home. 03/12 Pt seen examined, no acute overnight issues pt is neg 7254 ml since admissin, diuresed well yesterday with metolozone and bumex, Renal functino is worsening, creat is 2.1, Hb continues to drop, now at 8.0, anemia workup sent, iron low, tibc at 10, retic 1.5, no e/o bleed prot creat ration reviewed, repeat ua is a barney sample, not sure how much importance to give to wbc/rbc, no e/o infection Pt is stable at baseline, but is very short of breath with minimal ambulation he has pain in the left knee, reports is stiff. 03/13 Slept well. No new complaints. His shortness of breath is continuing to improve. He has a mild occasional cough which is normal for him. Continue swelling in his legs. Renal function improving, diuretics held yesterday. Seen by nephrology yesterday. 03/14 Slept well no overnight events. Did have an episode of nausea vomiting last night after medication. 03/15 Seems to need oxygen at night. Otherwise no issues overnight. Feeling better today. Was very weak yesterday and did not work well with physical therapy Review of Systems: denies headache/fever/chills/nausea/vomiting/chest or abdominal pain/cough/ dyspnea/diarrhea. Otherwise see above. - Constitutional Vitals: Vital Signs Temp Pulse Resp BP Pulse Ox 98.8 F 72 20 152/64 94 03/15/18 04:00 03/15/18 04:00 03/15/18 04:00 03/15/18 04:00 03/15/18 04:00 Period Temp Pulse Resp BP Sys/Bush Pulse Ox Last 24 Hr 97.9 F-99.9 F 69-72 20-24 121-167/54-77 94-98 Intake and Output 03/14/18 03/15/18 03/15/18 21:59 05:59 13:59 Intake Total 700 / 700 170 / 170 200 / 200 Output Total 1175 / 1175 825 / 825 Balance -475 / -475 -655 / -655 200 / 200 Weight 153.949 kg Intake & Output: Intake & Output 03/14/18 03/15/18 03/15/18 21:59 05:59 13:59 Intake Total 700 / 700 170 / 170 200 / 200 Output Total 1175 / 1175 825 / 825 Balance -475 / -475 -655 / -655 200 / 200 Weight 153.949 kg Intake: Oral 700 / 700 170 / 170 200 / 200 Output: Urine Catheter Amount 1175 / 1175 825 / 825 Other: Meal Dinner Percent of Meal Consumed 75% Feeding Ability Assist with Tray Set Up Urine Appearance Uretheral (Barney) Clear Urine Color Pale Bright Yellow Uretheral (Barney) Bright Yellow Urine Odor Normal Exam: General: Alert, Awake, No acute Distress, obese Eyes/N/T: EOMI Head/Neck: neck supple, CV: RRR, 1/6 SM, Pulm: Clear b/l, no wheezing/rhonchi/rales, although diminished Abd: soft, nontender, +BS x4 Ext: no clubbing/cyanosis, b/l LE Edema 1+ improved Neuro: Alert, no focal deficits, moves all extremities Skin: warm/dry Medical - PN: Obj Da - Labs CBC & Chem 7: 03/13/18 04:26 03/15/18 04:10 Labs: Abnormal Lab Results 03/15/18 03/15/18 03/14/18 04:10 04:10 04:00 RBC Hgb Hct RDW Lymph % (Auto) Lymph # (Auto) Absolute Retic PT 23.8 H INR 2.1 H Carbon Dioxide 37 H 36 H BUN 25 H 24 H Creatinine 1.6 H 1.6 H Glucose 66 L Uric Acid 11.0 H Calcium 8.2 L 8.2 L Phosphorus Iron TIBC Transferrin % Sat NT-Pro-B Natriuret Pep Albumin 2.5 L Globulin 3.9 H Albumin/Globulin Ratio 0.6 L Hep Bs Antibody 03/14/18 03/14/18 03/13/18 04:00 04:00 04:26 RBC Hgb Hct RDW Lymph % (Auto) Lymph # (Auto) Absolute Retic PT 23.9 H INR 2.1 H Carbon Dioxide 36 H BUN 24 H Creatinine 1.5 H Glucose 68 L Uric Acid 11.1 H Calcium 8.4 L Phosphorus 4.8 H Iron TIBC Transferrin % Sat NT-Pro-B Natriuret Pep 97846.0 H Albumin 2.5 L Globulin 3.8 H Albumin/Globulin Ratio 0.7 L Hep Bs Antibody Positive A 03/13/18 03/13/18 03/13/18 04:26 04:26 04:26 RBC 3.36 L Hgb 9.0 L Hct 27.7 L RDW 18.0 H Lymph % (Auto) 14.4 L Lymph # (Auto) 1.0 L Absolute Retic PT 24.0 H INR 2.1 H Carbon Dioxide 32 H BUN 25 H Creatinine 1.7 H Glucose 61 L Uric Acid 10.4 H Calcium 8.5 L Phosphorus Iron TIBC Transferrin % Sat NT-Pro-B Natriuret Pep Albumin 2.8 L Globulin 4.0 H Albumin/Globulin Ratio 0.7 L Hep Bs Antibody 03/12/18 03/12/18 10:06 03:45 RBC Hgb Hct RDW Lymph % (Auto) Lymph # (Auto) Absolute Retic 1.6 H PT INR Carbon Dioxide BUN Creatinine Glucose Uric Acid Calcium Phosphorus Iron 24 L TIBC 225 L Transferrin % Sat 10 L NT-Pro-B Natriuret Pep Albumin Globulin Albumin/Globulin Ratio Hep Bs Antibody Meds: Medications Acetaminophen (Tylenol) 650 mg PO Q6HP PRN PRN Reason: PAIN/FEVER > 101 Last Admin: 03/14/18 09:01 Dose: 650 mg Albuterol/Ipratropium (Duoneb) 3 ml NEB Q4HP PRN PRN Reason: Shortness Of Breath Or Wheezing Dextrose (Dextrose 50%) 0 ml IV UD PRN PRN Reason: Hypoglycemia Diagnostic Test (Pha) (Accu-Chek) 1 each FS [facility] Last Admin: 03/14/18 21:14 Dose: 1 each Doxycycline Hyclate (Doxycycline Hyclate) 100 mg PO BID [facility] Last Admin: 03/14/18 21:22 Dose: 100 mg Ferrous Sulfate (Ferrous Sulfate) 325 mg PO DAILY@1200 [facility] Last Admin: 03/14/18 12:29 Dose: 325 mg Furosemide (Lasix) 60 mg IV DAILY [facility] Glucose (Insta-Glucose) 15 gm PO PRN PRN PRN Reason: Hypoglycemia Guaifenesin (Robitussin Dm) 10 ml PO Q4HP PRN PRN Reason: Cough Hydralazine HCl (Apresoline) 10 mg IV Q4HP PRN PRN Reason: Hypertension Insulin Glargine (Lantus) 60 unit SQ [facility] Last Admin: 03/14/18 21:21 Dose: 60 unit Insulin Human Lispro (Humalog) 0 unit SQ [facility]; Protocol Last Admin: 03/14/18 21:23 Dose: 2 unit Loperamide HCl (Imodium) 2 mg PO PRN PRN PRN Reason: Diarrhea Last Admin: 03/10/18 12:20 Dose: 2 mg Metoprolol Succinate (Toprol Xl) 50 mg PO [facility] Last Admin: 03/14/18 21:14 Dose: 50 mg Naloxone HCl (Narcan) 0.1 mg IV Q2MIN PRN PRN Reason: Opiate Reversal Ondansetron HCl (Zofran) 4 mg IV Q4HP PRN PRN Reason: Nausea And Vomiting Last Admin: 03/13/18 21:16 Dose: 4 mg Oxymetazoline HCl (Afrin) 3 spray IRIS BIDP PRN PRN Reason: Nasal Congestion Last Admin: 03/15/18 03:54 Dose: 3 puff Sodium Chloride (Saline Flush) 10 ml IV Q8 [facility] Last Admin: 03/15/18 05:54 Dose: 10 ml Tamsulosin HCl (Flomax) 0.4 mg PO HS [facility] Last Admin: 03/14/18 21:14 Dose: 0.4 mg Warfarin Sodium (Coumadin Per Pharmacy) 1 order PO UD [facility] Medical - PN: A/P - Time Spent With Patient Total time spent is greater than 50% in coordination of care (as documented) at patient's floor/unit and/or counseling patient: - Narrative A/P Narrative: A: *Acute on chronic systolic (45%) & likely diastolic CHF: improved -significant diuresis -peripheral edema much improved *JERMAN on CKD III (base Cr~1.2-1.4): -renal u/s no obstruction -1.5-1.6<<2.1 *Anemia: likely anemia of chr disease / due to ckd -FOBT neg -stable *HTN: *Diabetes mellitus w/retinopathy: *Morbid Obesity: outpatient follow up *Hypoxia: more apparent at night, chf improved but has left effusion that may need to be drained to help with hypoxia *H/o pulmonary embolus: on warfarin with therapeutic INR *Right lower extremity wound: *Hypoalbuminemia/Proteinuria: etiology? diabetic nephropathy? *Obesity P: -diuretics per Nephrology -cont home metoprolol, ARB held in light of renal fxn -IV iron per nephro -wound care following/Dr. Michelle; cont doxy as per ID -IS, prn O2 -chest u/s for possible thora -SSI -PT/OT -BRYAN/MAYELA wraps -ppx: warfarin per pharm Medical - PN: Qual - VTE Deep Vein Thrombosis/Pulmonary Embolism Present on Admission: Yes
[2018-03-15] MEDS: INSULIN LISPRO 1 UNIT/0.01 ML UNIT SQ SCH ×4 (07:27→21:06)
[2018-03-15] MEDS ORDERED: FUROSEMIDE 100 MG/10 ML VIAL IV SCH (09:00)
[2018-03-15] MEDS: DOXYCYCLINE HYCLATE 100 MG TABLET.ORL PO SCH ×2 (09:06→21:05)
[2018-03-15] MEDS ORDERED: IRON SUCROSE COMPLEX 100 MG/5 ML VIAL IV ONE (09:29)
--- NOTE | 2018-03-15 10:05 | Nephrology Progress Note ---
Subjective Patient information: Note initiated : 03/15/18 at 10:03 am Service Date, if different from initiated Date: [] Patient: Florencio Grace 62 y/o M admitted on 03/09/18 for SOB, CHF. Chief Complaint: [] Principal diagnosis: CHF Interval history: patient was mildly hypoxic last night, was started on oxygen at 2L/min, nasal canula plan for possible thoracocentesis today weight down to 339 lbs with significant improvement in LE edema No CP, dizziness no GI symptoms does do PT and has no worsening SOB with exertion LE wound is been followed by wound care tolerates [place], no issues with this no other issues Pertinent ROS: as above Objective - Vital Signs Vital signs: Vital Signs Temp Pulse Resp BP Pulse Ox 03/15/18 07:27 73 20 148/72 98 03/15/18 04:00 98.8 F 72 20 152/64 94 03/15/18 00:00 99.9 F H 20 167/76 03/14/18 19:53 99.4 F H 72 20 152/65 98 03/14/18 15:22 97.9 F 24 H 144/77 97 03/14/18 12:00 98.3 F 24 H 148/72 96 Intake and Output 03/14/18 03/15/18 03/15/18 21:59 05:59 13:59 Intake Total 700 / 700 170 / 170 280 / 280 Output Total 1175 / 1175 825 / 825 Balance -475 / -475 -655 / -655 280 / 280 Intake: Oral 700 / 700 170 / 170 280 / 280 Output: Urine Catheter Amount 1175 / 1175 825 / 825 Other: Meal Dinner Breakfast Percent of Meal Consumed 75% 100% Feeding Ability Assist with Tray Set Up Independent Urine Appearance Uretheral (Mayo) Clear Clear Urine Color Pale Bright Yellow Uretheral (Mayo) Bright Yellow Bright Yellow Urine Odor Normal Weight 339 lb 6.4 oz Intake & Output: Intake & Output 03/14/18 03/15/18 03/15/18 21:59 05:59 13:59 Intake Total 700 / 700 170 / 170 280 / 280 Output Total 1175 / 1175 825 / 825 Balance -475 / -475 -655 / -655 280 / 280 Weight 339 lb 6.4 oz Intake: Oral 700 / 700 170 / 170 280 / 280 Output: Urine Catheter Amount 1175 / 1175 825 / 825 Other: Meal Dinner Breakfast Percent of Meal Consumed 75% 100% Feeding Ability Assist with Tray Set Up Independent Urine Appearance Uretheral (Mayo) Clear Clear Urine Color Pale Bright Yellow Uretheral (Mayo) Bright Yellow Bright Yellow Urine Odor Normal - General Appearance General appearance: appears started age, obese EENT: mucous membranes moist Neck: no JVD Respiratory: clear (but reduced air entry at right base) Cardiology: no rub, edema (much improved ), regular rate, regular rhythm Gastrointestinal: no tenderness, no guarding Integumentary: no rash, warm and dry Neurologic: no asterixis, alert and oriented x3 Musculoskeletal: no erythema Psychiatric: mood/affect appropriate - Lab 03/13/18 04:26 03/15/18 04:10 Most recent lab results Calcium 8.2 mg/dl (8.6-10.4) L 03/15/18 04:10 Phosphorus 3.9 mg/dL (2.7-4.5) 03/15/18 04:10 Magnesium 2.1 mg/dL (1.6-2.5) 03/15/18 04:10 Assessment and Plan - Narrative A/P Narrative: Acute on chronic renal failure Proteinuria S.creatinine 1.6 today, egfr 45ml/min s.creatinine was 1.4 on admission, last year s.creatinine has been 1.3-1.8 UA with proteinuria, hyaline casts, RBC(this was on cath sample) \renal US shows no e/o obstruction CKD likely from DM type2 (has retinopathy), HTN, CHF renal function stable for now hepatitis B and C negative, normal complements, spep/upep pending continue furosemide at 60mg IV today requested patient to improve water intake to atleast a little above litre given bicarb at 37 likely related to diuresis will switch to bumex 2mg bidd from tomorrow so that we can ensure adequate response to oral diuretics on discharge please dose meds to egfr, avoid nephrotoxic meds anemia: low iron stores and CKD contributing ct IV iron, once replete may need aranesp stool occult blood was reported to be negative spep/upep pending CHF: furosemide 60mg IV one a day today on beta blockers will resume arb once s.creatinine is in steady state malnutrition:start nepro bid HTN: will follow and optimize meds if needed Will follow along Thank you for giving me an opportunity to participate in Mr Grace's medical care, appreciate it
--- NOTE | 2018-03-15 10:30 | Ultrasound Report ---
CLINICAL INFORMATION: Left pleural effusion COMPARISON: None. FINDINGS: Moderate simple left pleural effusion is noted resulting in mild compressive atelectasis of the left lower lobe and left middle lobe. IMPRESSION: Moderate left pleural effusion. This should be sufficient to safely perform thoracentesis Interpreted and Authenticated by: Elmo Youngblood 03/15/18
[2018-03-15] MEDS: FERROUS SULFATE 325 MG TABLET PO SCH (12:19)
[2018-03-15] MEDS: ONDANSETRON 4 MG/2 ML VIAL IV PRN (13:48)
[2018-03-15] MEDS ORDERED: WARFARIN 5 MG TABLET PO ONE (14:00)
--- NOTE | 2018-03-15 14:55 | XRay Report ---
CLINICAL INFORMATION: Post left thoracentesis COMPARISON: [03/13/2018 FINDINGS: [Moderate cardiomegaly is unchanged. Mediastinum and pulmonary vessels are normal. Following left thoracentesis, there is no residual left pleural effusion. No pneumothorax or other complication. The left lower lobe has reexpanded with only minor subsegmental atelectasis. Minor subsegmental atelectasis is also noted in the right base IMPRESSION: Following left thoracentesis, there is residual left pleural effusion. No pneumothorax or other complication Interpreted and Authenticated by: Elmo Youngblood 03/15/18
--- NOTE | 2018-03-15 15:06 | Ultrasound Report ---
Ultrasound-guided thoracentesis CLINICAL INFORMATION: Moderate left pleural effusion TECHNIQUE: Procedure and risks including possibility of bleeding, infection, and pneumothorax were explained to the patient. He understood and wished to proceed. With the patient in upright position, the fluid was first sonographically localized over the posterior left 10th intercostal space at posterior axillary line. The skin overlying this region was marked, prepped and locally anesthetized with 1% lidocaine using a 25-gauge needle to the level the parietal pleura. An 18-gauge [employer] Speecheh needle was then advanced under sonographic guidance into the pleural fluid and approximately 1.4 L of simple appearing transudative fluid was aspirated. Post procedure scanning shows only minimal residual fluid. Patient tolerated procedure well without apparent complication. Follow-up chest x-ray to be obtained IMPRESSION: Successful thoracentesis yielding 1.4 L of transudative appearing simple pleural fluid. Fluid was sent to pathology. No apparent complication Interpreted and Authenticated by: Elmo Youngblood 03/15/18
[2018-03-15] MEDS ORDERED: BUMETANIDE 1 MG TABLET PO SCH (16:00)
--- NOTE | 2018-03-15 16:23 | General Surgery Progress Note ---
Subjective Narrative: Note initiated : 03/15/18 at 4:18 pm Service Date, if different from initiated Date: [] Patient: Florencio Grace 62 y/o M admitted on 03/09/18 for SOB, CHF. Chief Complaint: [] I saw this patient on rounds along with Jessica TRAN inpatient wound care nurse. There are no changes in his wound. He continues to be symptomatic with left knee pain due to osteoarthritis and minimal shortness of breath. There was one episode of hypoxia during the night. Patient underwent thoracentesis and 1.5 L of transudate pleural fluid was aspirated uneventfully. Microbiology studies and cultures and sensitivity results are awaited. Objective Temp Pulse Resp BP Pulse Ox 97.6 F 73 18 161/66 95 03/15/18 11:39 03/15/18 07:27 03/15/18 11:39 03/15/18 11:39 03/15/18 11:39 Focused local examination: Improvement with dermatitis and cellulitis around the right ankle wound. Patient bears weight and ambulate on this foot from the bed to the bathroom. Reviewed the wound culture results from the specimen obtained in the wound center before he was sent to the hospital. This has grown staphylococci and resistant to tetracycline and Bactrim. He was treated with intravenous antibiotics and oral linezolid in past. He continues to be on long-term antibiotic suppression with tetracycline. To continue with current wound care. We will reassess his wounds tomorrow and make recommendations about oral antibiotics. - Additional Data Intake & Output - Last 24 hours: Intake & Output 03/13/18 03/14/18 03/15/18 03/16/18 05:59 05:59 05:59 05:59 Intake Total 1080 / 1080 400 / 400 870 / 870 280 / 280 Output Total 1325 / 1325 5650 / 5650 1999 / 1999 Balance -245 / -245 -5250 / -5250 -1130 / -1130 280 / 280 Weight 360 lb 0.238 oz 390 lb 339 lb 6.4 oz - Labs 03/13/18 04:26 03/15/18 04:10 Diabetes panel 03/15/18 Range/Units 04:10 Sodium 145 (133-145) mmol/L Potassium 3.7 (3.3-5.1) mmol/L Chloride 100 (96-108) mmol/L Carbon Dioxide 37 H (22-30) mmol/L BUN 25 H (8-23) mg/dl Creatinine 1.6 H (0.7-1.2) mg/dl Glucose 75 (70-105) mg/dL Calcium 8.2 L (8.6-10.4) mg/dl AST 18 (0-37) U/l ALT 11 (0-40) U/l Alkaline Phosphatase 106 (39-117) U/L Total Protein 6.4 (5.9-8.4) gm/dL Albumin 2.5 L (3.2-5.2) gm/dL Triglycerides 63 (<150) mg/dl Calcium panel 03/15/18 Range/Units 04:10 Calcium 8.2 L (8.6-10.4) mg/dl Phosphorus 3.9 (2.7-4.5) mg/dL Albumin 2.5 L (3.2-5.2) gm/dL Pituitary panel 03/15/18 Range/Units 04:10 Sodium 145 (133-145) mmol/L Potassium 3.7 (3.3-5.1) mmol/L Chloride 100 (96-108) mmol/L Carbon Dioxide 37 H (22-30) mmol/L BUN 25 H (8-23) mg/dl Creatinine 1.6 H (0.7-1.2) mg/dl Glucose 75 (70-105) mg/dL Calcium 8.2 L (8.6-10.4) mg/dl Adrenal panel 03/15/18 Range/Units 04:10 Sodium 145 (133-145) mmol/L Potassium 3.7 (3.3-5.1) mmol/L Chloride 100 (96-108) mmol/L Carbon Dioxide 37 H (22-30) mmol/L BUN 25 H (8-23) mg/dl Creatinine 1.6 H (0.7-1.2) mg/dl Glucose 75 (70-105) mg/dL Calcium 8.2 L (8.6-10.4) mg/dl Total Bilirubin 0.3 (0.0-1.0) mg/dL AST 18 (0-37) U/l ALT 11 (0-40) U/l Alkaline Phosphatase 106 (39-117) U/L Total Protein 6.4 (5.9-8.4) gm/dL Albumin 2.5 L (3.2-5.2) gm/dL Assessment and Plan (1) Dermatitis of lower extremity Status: Chronic Current Visit: Yes - Narrative A/P Narrative: Assessment: No interval changes in the wound care. Status post thoracentesis today for pleural effusion. Plan: Continue current wound care. - Time Spent With Patient Total time spent is greater than 50% in coordination of care (as documented) at patient's floor/unit and/or counseling patient: 15 - 24 minutes
[2018-03-15 16:34] LABS: Albumin PEP 2.46 gm/dl (3.1-4.7)
[2018-03-15 16:39] LABS: LDH,Pleural Fluid 63 U/L
[2018-03-15 17:08] LABS: Lymphocytes,Pleural Fluid 21 %; Monocytes,Pleural Fluid 24 %; Neutrophils,Pleural Fluid 33 %; Plasma Cell,Pleural Fluid 1 %
[2018-03-15 17:10] LABS: Appearance,Pleural Fluid CLEAR; Color,Pleural Fluid YELLOW; Nucleated Cells,Pleural Fld 134 /cumm
[2018-03-15] MEDS: TAMSULOSIN 0.4 MG CAPSULE PO SCH (21:05)
[2018-03-15] MEDS: METOPROLOL SUCCINATE 50 MG TAB.XL.24H PO SCH (21:06)
[2018-03-15] MEDS: INSULIN GLARGINE, HUMAN 1 UNIT/0.01 ML SQ SCH (21:07)
[2018-03-16] MEDS: 0.9 % SODIUM CHLORIDE 10 ML SYRINGE IV SCH ×3 (05:44→20:11)
--- NOTE | 2018-03-16 07:09 | Internal Med Progress Note ---
Medical - PN: Subj Patient information: Note initiated : 03/16/18 at 7:03 am Service Date, if different from initiated Date: [] Patient: Florencio Grace a 62 y/o M admitted on 03/09/18 for SOB, CHF. Chief Complaint: [] Interval history: Mr. Grace is a 62 year old M with history of diabetes, congestive heart failure hypertension morbid obesity right lower extremity wound presents to the emergency room 2 days in a row for evaluation of shortness of breath. The patient was here yesterday and the initial plan was to admit him for congestive heart failure however the patient refused. The patient was therefore follow-up with his PCP again today and he was sent back to the emergency room because of severe shortness of breath. The patient has been having shortness of breath that has been getting worse for the last 2 weeks. The patient notes that minimal activity makes him short of breath. He has gained approximately 35 pounds over the last 3 months. He attributes his weight gain to noncompliance with his oral diuretic medications. As well as increased oral intake. His lack of ability to exercise. The patient denies any other acute complaints or concerns. He has some cough which is worse when he lies down. Clear cough no hemoptysis. The patient denies any chest pain, no palpitations no headache no dizziness no GI complaints no complaints. He has significant edema in his lower extremities. The patient has followed with wound care as well as infectious disease for management of his chronic lower extremity wound. He has completed oral antibiotic course and was seen by wound care physician yesterday in the emergency room. Patient has been advised to take tetracycline for now. In the emergency room patient was afebrile heart rate 105 blood pressure 167/83 saturating 99% on room air. Hemoglobin 9.5 WBC count 8.3 platelets 222 sodium 145 potassium 3.7 bicarbonate 29 creatinine 1.4 glucose 137 BNP is 11,418 troponin negative. EKG shows sinus rhythm, old anterior inferior infarct, QS wave in V1 to V5. Left axis deviation. Chest x-ray shows bilateral atelectasis versus pneumonia congestive heart failure cardiomegaly The patient noted he has had an echocardiogram done at [facility] in the last 2 months. We will try to obtain a copy Patient will be admitted to the hospital for further management 03/10 Patient's and examined no acute overnight events. All medications reviewed. Patient is not sure why he is not on a beta-medhat. Echocardiogram done recently at [facility] I believe on 02/02/2018 reviewed. Ejection fraction was 45%. Unable to determine diastolic dysfunction. Patient has responded very well to IV diuresis. -5500 mL. Discussed with the patient intent to start patient on beta-blockers patient verbalized understanding and agreeable to treatment. labs stable, creat slightly worse at 1.5 03/11 Is examined, no acute overnight events. Last night got chlorothiazide IV and then Lasix, he did not be as much. Total urine output yesterday is 1350, he just -250 yesterday. His albumin is 2.3. He has significant proteinuria in his urine analysis. I am going to switch his diuretic regimen from Lasix to Bumex, give him a dose of metolazone before his a.m. dose of Bumex and see if he makes more urine. Sent for protein creatinine ratio, urine electrophoresis. Creatinine is 1.8, it is very likely that the patient's significant proteinuria is related to diabetes, however will rule out other causes. If the patient's renal function worsens will consider nephrology consult Patient otherwise feels much better, which is to go home. 03/12 Pt seen examined, no acute overnight issues pt is neg 7254 ml since admissin, diuresed well yesterday with metolozone and bumex, Renal functino is worsening, creat is 2.1, Hb continues to drop, now at 8.0, anemia workup sent, iron low, tibc at 10, retic 1.5, no e/o bleed prot creat ration reviewed, repeat ua is a barney sample, not sure how much importance to give to wbc/rbc, no e/o infection Pt is stable at baseline, but is very short of breath with minimal ambulation he has pain in the left knee, reports is stiff. 03/13 Slept well. No new complaints. His shortness of breath is continuing to improve. He has a mild occasional cough which is normal for him. Continue swelling in his legs. Renal function improving, diuretics held yesterday. Seen by nephrology yesterday. 03/14 Slept well no overnight events. Did have an episode of nausea vomiting last night after medication. 03/15 Seems to need oxygen at night. Otherwise no issues overnight. Feeling better today. Was very weak yesterday and did not work well with physical therapy 03/16 Healing better. Is more ambulatory past 24 hours. Feels like he can expand his lungs better after the thoracentesis. 1400 cc of transudate of pleural effusion removed yesterday. Review of Systems: denies headache/fever/chills/nausea/vomiting/chest or abdominal pain/cough/ diarrhea. Otherwise see above. - Constitutional Vitals: Vital Signs Temp Pulse Resp BP Pulse Ox 97.4 F 64 16 151/60 95 03/16/18 04:15 03/16/18 04:15 03/16/18 04:15 03/16/18 04:15 03/16/18 04:15 Period Temp Pulse Resp BP Sys/Bush Pulse Ox Last 24 Hr 97.4 F-98.9 F 64-73 16-20 140-166/51-72 94-98 Intake and Output 03/15/18 03/16/18 03/16/18 21:59 05:59 13:59 Intake Total 560 / 560 340 / 340 Output Total 1525 / 1525 450 / 450 Balance -965 / -965 -110 / -110 Weight 151.545 kg Intake & Output: Intake & Output 03/15/18 03/16/18 03/16/18 21:59 05:59 13:59 Intake Total 560 / 560 340 / 340 Output Total 1525 / 1525 450 / 450 Balance -965 / -965 -110 / -110 Weight 151.545 kg Intake: Oral 360 / 360 340 / 340 GI Tube Flush 200 / 200 Output: Urine Catheter Amount 1525 / 1525 450 / 450 Other: Urine Appearance Clear Clear Uretheral (Barney) Clear Urine Color Dark Yellow Dark Mary Uretheral (Barney) Light Mary Urine Odor Normal Exam: General: Alert, Awake, No acute Distress, obese Eyes/N/T: EOMI Head/Neck: neck supple, CV: RRR, 1/6 SM, Pulm: Clear b/l, no wheezing/rhonchi/rales, diminished Abd: soft, nontender, +BS x4 Ext: no clubbing/cyanosis, b/l LE Edema 1+ much improved Neuro: Alert, no focal deficits, moves all extremities Skin: warm/dry Medical - PN: Obj Da - Labs CBC & Chem 7: 11/27/18 04:30 03/16/18 04:30 Labs: Abnormal Lab Results 03/15/18 03/15/18 03/14/18 04:10 04:10 04:00 PT 23.8 H INR 2.1 H Carbon Dioxide 37 H 36 H BUN 25 H 24 H Creatinine 1.6 H 1.6 H Glucose 66 L Uric Acid 11.0 H Calcium 8.2 L 8.2 L Phosphorus NT-Pro-B Natriuret Pep Albumin 2.5 L Albumin (PEP) Globulin 3.9 H Globulin (PEP) Albumin/Globulin Ratio 0.6 L Albumin/Globulin (PEP) Gamma Globulins 03/14/18 03/14/18 03/13/18 04:00 04:00 04:26 PT 23.9 H INR 2.1 H Carbon Dioxide 36 H BUN 24 H Creatinine 1.5 H Glucose 68 L Uric Acid 11.1 H Calcium 8.4 L Phosphorus 4.8 H NT-Pro-B Natriuret Pep 02401.0 H Albumin 2.5 L Albumin (PEP) 2.46 L Globulin 3.8 H Globulin (PEP) 4.0 H Albumin/Globulin Ratio 0.7 L Albumin/Globulin (PEP) 0.6 L Gamma Globulins 1.83 H Meds: Medications Acetaminophen (Tylenol) 650 mg PO Q6HP PRN PRN Reason: PAIN/FEVER > 101 Last Admin: 03/14/18 09:01 Dose: 650 mg Albuterol/Ipratropium (Duoneb) 3 ml NEB Q4HP PRN PRN Reason: Shortness Of Breath Or Wheezing Bumetanide (Bumex) 2 mg PO BIDD [facility] Dextrose (Dextrose 50%) 0 ml IV UD PRN PRN Reason: Hypoglycemia Diagnostic Test (Pha) (Accu-Chek) 1 each FS ACHS [facility] Last Admin: 03/15/18 21:07 Dose: 1 each Doxycycline Hyclate (Doxycycline Hyclate) 100 mg PO BID [facility] Last Admin: 03/15/18 21:05 Dose: 100 mg Ferrous Sulfate (Ferrous Sulfate) 325 mg PO DAILY@1200 [facility] Last Admin: 03/15/18 12:19 Dose: 325 mg Glucose (Insta-Glucose) 15 gm PO PRN PRN PRN Reason: Hypoglycemia Guaifenesin (Robitussin Dm) 10 ml PO Q4HP PRN PRN Reason: Cough Hydralazine HCl (Apresoline) 0 mg IV Q2HP PRN PRN Reason: Hypertension Insulin Glargine (Lantus) 60 unit SQ [facility] Last Admin: 03/15/18 21:07 Dose: 60 unit Insulin Human Lispro (Humalog) 0 unit SQ [facility]; Protocol Last Admin: 03/15/18 21:06 Dose: 4 unit Loperamide HCl (Imodium) 2 mg PO PRN PRN PRN Reason: Diarrhea Last Admin: 03/10/18 12:20 Dose: 2 mg Metoprolol Succinate (Toprol Xl) 50 mg PO [facility] Last Admin: 03/15/18 21:06 Dose: 50 mg Naloxone HCl (Narcan) 0.1 mg IV Q2MIN PRN PRN Reason: Opiate Reversal Ondansetron HCl (Zofran) 4 mg IV Q4HP PRN PRN Reason: Nausea And Vomiting Last Admin: 03/15/18 13:48 Dose: 4 mg Oxymetazoline HCl (Afrin) 3 spray IRIS BIDP PRN PRN Reason: Nasal Congestion Last Admin: 03/15/18 21:06 Dose: 3 puff Sodium Chloride (Saline Flush) 10 ml IV Q8 [facility] Last Admin: 03/16/18 05:44 Dose: 10 ml Tamsulosin HCl (Flomax) 0.4 mg PO [facility] Last Admin: 03/15/18 21:05 Dose: 0.4 mg Warfarin Sodium (Coumadin Per Pharmacy) [address] [facility] Medical - PN: A/P - Time Spent With Patient Total time spent is greater than 50% in coordination of care (as documented) at patient's floor/unit and/or counseling patient: - Narrative A/P Narrative: A: *Acute on chronic systolic (45%) & likely diastolic CHF: improved -significant diuresis -peripheral edema significantly improved *JERMAN on CKD III (base Cr~1.2-1.4): -renal u/s no obstr -stable ~1.6 *Anemia: likely anemia of chr disease / due to ckd -FOBT neg -stable *HTN: *Diabetes mellitus w/retinopathy: *Morbid Obesity: outpatient follow up *Hypoxia: more apparent at night, chf improved but has left effusion that may need to be drained to help with hypoxia -likely MITCHELL -improved, thoracentesis done *Pleural effusion, left: -thora of 1400cc (03/15) transudative *H/o pulmonary embolus: on warfarin with therapeutic INR *Right lower extremity wound: *Hypoalbuminemia/Proteinuria: etiology? diabetic nephropathy? *Obesity P: -diuretics per Nephrology -cont home metoprolol, ARB held initially in light of renal fxn will be restarted by [employer] outpt - -wound care following/Dr. Michelle; cont doxy as per ID -IS, prn O2 -SSI and basal (decrease) -PT/OT -BRYAN/MAYELA wraps -recommend sleep study outpt -ppx: warfarin per pharm Medical - PN: Qual - VTE Deep Vein Thrombosis/Pulmonary Embolism Present on Admission: Yes
[2018-03-16 07:10] LABS: Basophils # (Auto) 0.1 K/mcL (0.0-0.3); Basophils % (Auto) 0.5 % (0.0-2.0); Eosinophils # (Auto) 0.3 K/mcL (0.0-0.7); Eosinophils % (Auto) 2.5 % (0.0-7.0); Granulocytes % (Auto) 71.8 % (38.0-78.0); Lymphocytes # (Auto) 1.5 K/mcL (1.5-4.8); Lymphocytes % (Auto) 14.4 % (15.5-49.0); Mean Cell Volume 83.1 fL (80.0-100.0); Mean Corpuscular HGB Conc 32.3 g/dL (31.0-36.0); Mean Corpuscular Hemoglobin 26.8 pg (26.0-34.0); Monocytes # (Auto) 1.1 K/mcL (0.1-0.9); Monocytes % (Auto) 10.8 % (1.0-12.0); Platelet Count 220 K/mcL (140-440); RBC 3.61 M/mcL (4.50-5.90); Red Cell Distribution Width 18.5 % (11.5-14.5)
[2018-03-16] MEDS: INSULIN LISPRO 1 UNIT/0.01 ML UNIT SQ SCH ×4 (07:26→20:11)
[2018-03-16 07:50] LABS: ALT/SGPT 12 U/l (0-40); Albumin 2.7 gm/dL (3.2-5.2); Albumin/Globulin Ratio 0.6 (1.0-2.3); Alkaline Phosphatase 108 U/L (39-117); Bilirubin,Direct < 0.2 mg/dL (0.0-0.3); Blood Urea Nitrogen 26 mg/dl (8-23); Gamma Glutamyl Transpeptidase 42 U/L (8-61); Uric Acid 11.9 mg/dL (2.5-8.0)
[2018-03-16] MEDS: BUMETANIDE 1 MG TABLET PO SCH ×2 (07:59→15:55)
[2018-03-16] MEDS: DOXYCYCLINE HYCLATE 100 MG TABLET.ORL PO SCH ×2 (08:00→20:08)
--- NOTE | 2018-03-16 08:27 | XRay Report ---
CLINICAL INFORMATION: f/u chf, atelectasis COMPARISON: 03/15/2018 FINDINGS: Moderate cardiomegaly is unchanged. Mediastinum is unremarkable. Pulmonary vessels are mildly distended and there is minimal interstitial edema throughout both lungs. Mild bibasilar infiltrates have developed since previous study. Small recurrent left pleural effusion noted. IMPRESSION: Mild recurrent CHF Mild bibasilar infiltrates - new. Consider aspiration. Small recurrent left pleural effusion Interpreted and Authenticated by: Elmo Youngblood 03/16/18
[2018-03-16] MEDS ORDERED: IRON SUCROSE COMPLEX 100 MG/5 ML VIAL IV ONE (10:20)
--- NOTE | 2018-03-16 10:24 | Nephrology Progress Note ---
Subjective Patient information: Note initiated : 03/16/18 at 10:20 am Service Date, if different from initiated Date: [] Patient: Florencio Grace 62 y/o M admitted on 03/09/18 for SOB, CHF. Chief Complaint: [] Principal diagnosis: CHF Interval history: s/p thoracocentesis yesterday, SOB is better LE edema continues to improve slowly no CP, dizziness no other overnight events doing PT renal function stable for now Pertinent ROS: as above Objective - Vital Signs Vital signs: Vital Signs Temp Pulse Pulse Pulse Resp BP BP 03/16/18 09:00 96.9 F L 67 67 18 156/56 03/16/18 08:00 20 03/16/18 04:15 97.4 F 64 16 151/60 03/16/18 00:11 98.9 F 69 16 140/69 03/15/18 19:30 98.4 F 70 18 166/51 03/15/18 17:00 97.6 F 70 20 155/53 03/15/18 11:39 97.6 F 18 BP Pulse Ox 03/16/18 09:00 91 03/16/18 08:00 03/16/18 04:15 95 03/16/18 00:11 98 03/15/18 19:30 95 03/15/18 17:00 94 03/15/18 11:39 161/66 95 Intake and Output 03/15/18 03/16/18 03/16/18 21:59 05:59 13:59 Intake Total 560 / 560 340 / 340 Output Total 1525 / 1525 450 / 450 Balance -965 / -965 -110 / -110 Intake: Oral 360 / 360 340 / 340 GI Tube Flush 200 / 200 Output: Urine Catheter Amount 1525 / 1525 450 / 450 Other: Urine Appearance Clear Clear Uretheral (Mayo) Clear Clear Urine Color Dark Yellow Dark Mary Uretheral (Mayo) Light Mary Bright Yellow Urine Odor Normal Weight 334 lb 1.6 oz Intake & Output: Intake & Output 03/15/18 03/16/18 03/16/18 21:59 05:59 13:59 Intake Total 560 / 560 340 / 340 Output Total 1525 / 1525 450 / 450 Balance -965 / -965 -110 / -110 Weight 334 lb 1.6 oz Intake: Oral 360 / 360 340 / 340 GI Tube Flush 200 / 200 Output: Urine Catheter Amount 1525 / 1525 450 / 450 Other: Urine Appearance Clear Clear Uretheral (Mayo) Clear Clear Urine Color Dark Yellow Dark Mary Uretheral (Mayo) Light Mary Bright Yellow Urine Odor Normal - General Appearance General appearance: appears started age, obese EENT: mucous membranes moist Neck: no JVD Respiratory: clear Cardiology: no rub, no edema, edema (much improved ), regular rate, regular rhythm Gastrointestinal: no tenderness, no guarding Integumentary: warm and dry Neurologic: alert and oriented x3 Musculoskeletal: no erythema, no cyanosis Psychiatric: mood/affect appropriate - Lab 03/16/18 04:30 03/16/18 04:30 Most recent lab results Calcium 8.7 mg/dl (8.6-10.4) 03/16/18 04:30 Phosphorus 3.7 mg/dL (2.7-4.5) 03/16/18 04:30 Magnesium 2.1 mg/dL (1.6-2.5) 03/16/18 04:30 Assessment and Plan - Narrative A/P Narrative: Acute on chronic renal failure Proteinuria S.creatinine 1.6 today, egfr 45ml/min, stable for now s.creatinine was 1.4 on admission, last year s.creatinine has been 1.3-1.8 UA with proteinuria, hyaline casts, RBC(this was on cath sample) \renal US shows no e/o obstruction CKD likely from DM type2 (has retinopathy), HTN, CHF renal function stable for now hepatitis B and C negative, normal complements, spep/upep pending bumex 2mg bid for diuresis, will follow response persistently elevated uric acid level, given continued need of diuretics will start allopurinol 100mg po daily will resume ARB, losartan at 25mg pod aily for antiproteinuric effect and given h/o CHF, will follow the renal function while on ARB, t his will help with better BP control please dose meds to egfr avoid nephrotoxic medications anemia: low iron stores and CKD contributing ct IV iron, Hemoglobin improved to 9.7 stool occult blood was reported to be negative spep/upep pending CHF: bumex 2mg bid on beta blockers and losartan at 25mg malnutrition:start nepro bid HTN:as above Will follow along Thank you for giving me an opportunity to participate in Mr Grace's medical care, appreciate it
--- NOTE | 2018-03-16 11:40 | Discharge Summary ---
Medical - DS: Prov Patient information: Note initiated : 03/16/18 at 11:33 am Service Date, if different from initiated Date: [] Patient: Florencio Grace 62 y/o M admitted on 03/09/18 for SOB, CHF. Chief Complaint: [] Date of admission: 03/09/18 14:16 Discharge date: 03/17/18 Primary care physician: Rivera Mcintosh Jr, MD Consults: 03/09/18 Consult to Physician [CONS] Stat Comment: Consulting Provider: Byron Estrada Reason For Exam: Physician to Consult 03/09/18 14:48 Consult to Physician [CONS] Stat Comment: Consulting Provider: Jerzy Michelle Reason For Exam: Physician to Consult 03/11/18 16:01 Consult to Physician [CONS] Routine Comment: Consulting Provider: Kassandra Torres Reason For Exam: Physician to Consult Medical - DS: Meds - Discharge Medications Prescriptions: Allopurinol [Zyloprim] 100 mg PO DAILY #30 tab Bumetanide [Bumex] 2 mg PO BIDD #120 tab Insulin Glargine, Human [Lantus] 45 unit SQ DAILY #1 unit Metoprolol Succinate [Toprol Xl] 50 mg PO HS #30 tab.xl.24h Active and Home Medications: Home Medications Ferrous Sulfate [Iron] 325 mg PO DAILY 03/08/18 [History Confirmed 03/09/18 Last Taken 03/08/18 08:00] Insulin Glargine, Human [Lantus] 60 unit SQ DAILY 03/08/18 [History Confirmed Last Taken 03/08/18 20:00] Linezolid 600 mg PO DAILY 03/08/18 [History Confirmed 03/09/18 Last Taken ] Loperamide [Imodium] 2 mg PO PRN PRN 03/08/18 [History Confirmed 03/09/18 Last Taken 03/08/18 20:00] Tamsulosin [Flomax] 0.4 mg PO HS 03/08/18 [History Confirmed 03/09/18 Last Taken 03/08/18 20:00] Torsemide 100 mg PO DAILY 03/08/18 [History Confirmed 03/09/18 Last Taken 20:00] Warfarin [Coumadin] 5 mg PO DAILY 03/08/18 [History Confirmed 03/09/18 Last Taken 03/08/18 20:00] metFORMIN HCL [Metformin HCl] 1,000 mg PO HS 03/08/18 [History Confirmed Last Taken 03/08/18 20:00] Ergocalciferol (Vitamin D2) [Vitamin D2] 50,000 unit PO 3XW 03/09/18 [History Confirmed 03/09/18 Last Taken 03/08/18 08:00] Isosorbide Mononitrate [Imdur] 60 mg PO DAILY 03/09/18 [History Confirmed Last Taken 03/02/18] Oxymetazoline HCl [Nasal Olympia] 3 spray NS BIDP PRN 03/09/18 [History Confirmed 03/09/18 Last Taken 03/08/18] Valsartan 320 mg PO DAILY 03/09/18 [History Confirmed 03/09/18 Last Taken ] doxycycline hyclate 100 mg tablet 100 mg PO BID #120 tab 03/09/18 [Rx Confirmed 03/09/18 Last Taken 2 Days Ago ~03/07/18] Home Medications Ferrous Sulfate [Iron] 325 mg PO DAILY 03/08/18 [History Confirmed 03/09/18 Last Taken 03/08/18 08:00] Linezolid 600 mg PO DAILY 03/08/18 [History Confirmed 03/09/18 Last Taken ] Loperamide [Imodium] 2 mg PO PRN PRN 03/08/18 [History Confirmed 03/09/18 Last Taken 03/08/18 20:00] Tamsulosin [Flomax] 0.4 mg PO HS 03/08/18 [History Confirmed 03/09/18 Last Taken 03/08/18 20:00] Warfarin [Coumadin] 5 mg PO DAILY 03/08/18 [History Confirmed 03/09/18 Last Taken 03/08/18 20:00] Ergocalciferol (Vitamin D2) [Vitamin D2] 50,000 unit PO 3XW 03/09/18 [History Confirmed 03/09/18 Last Taken 03/08/18 08:00] Isosorbide Mononitrate [Imdur] 60 mg PO DAILY 03/09/18 [History Confirmed Last Taken 03/02/18] doxycycline hyclate 100 mg tablet 100 mg PO BID #120 tab 03/09/18 [Rx Confirmed 03/09/18 Last Taken 2 Days Ago ~03/07/18] Allopurinol [Zyloprim] 100 mg PO DAILY #30 tab 03/16/18 [Rx Last Taken Unknown] Bumetanide [Bumex] 2 mg PO BIDD #120 tab 03/16/18 [Rx Last Taken Unknown] Insulin Glargine, Human [Lantus] 45 unit SQ DAILY #1 unit 03/16/18 [Rx Last Taken Unknown] Metoprolol Succinate [Toprol Xl] 50 mg PO HS #30 tab.xl.24h 03/16/18 [Rx Last Taken Unknown] Medical - DS: Hosp Hospital course: Mr. Grace is a 62 year old M with history of diabetes, congestive heart failure hypertension morbid obesity right lower extremity wound presents to the emergency room 2 days in a row for evaluation of shortness of breath. The patient was here yesterday and the initial plan was to admit him for congestive heart failure however the patient refused. The patient was therefore follow-up with his PCP again today and he was sent back to the emergency room because of severe shortness of breath. The patient has been having shortness of breath that has been getting worse for the last 2 weeks. The patient notes that minimal activity makes him short of breath. He has gained approximately 35 pounds over the last 3 months. He attributes his weight gain to noncompliance with his oral diuretic medications. As well as increased oral intake. His lack of ability to exercise. The patient denies any other acute complaints or concerns. He has some cough which is worse when he lies down. Clear cough no hemoptysis. The patient denies any chest pain, no palpitations no headache no dizziness no GI complaints no complaints. He has significant edema in his lower extremities. The patient has followed with wound care as well as infectious disease for management of his chronic lower extremity wound. He has completed oral antibiotic course and was seen by wound care physician yesterday in the emergency room. Patient has been advised to take tetracycline for now. In the emergency room patient was afebrile heart rate 105 blood pressure 167/83 saturating 99% on room air. Hemoglobin 9.5 WBC count 8.3 platelets 222 sodium 145 potassium 3.7 bicarbonate 29 creatinine 1.4 glucose 137 BNP is 11,418 troponin negative. EKG shows sinus rhythm, old anterior inferior infarct, QS wave in V1 to V5. Left axis deviation. Chest x-ray shows bilateral atelectasis versus pneumonia congestive heart failure cardiomegaly The patient noted he has had an echocardiogram done at [facility] in the last 2 months. We will try to obtain a copy Patient will be admitted to the hospital for further management 03/10 Patient's and examined no acute overnight events. All medications reviewed. Patient is not sure why he is not on a beta-medhat. Echocardiogram done recently at [facility] I believe on 02/02/2018 reviewed. Ejection fraction was 45%. Unable to determine diastolic dysfunction. Patient has responded very well to IV diuresis. -5500 mL. Discussed with the patient intent to start patient on beta-blockers patient verbalized understanding and agreeable to treatment. labs stable, creat slightly worse at 1.5 03/11 Is examined, no acute overnight events. Last night got chlorothiazide IV and then Lasix, he did not be as much. Total urine output yesterday is 1350, he just -250 yesterday. His albumin is 2.3. He has significant proteinuria in his urine analysis. I am going to switch his diuretic regimen from Lasix to Bumex, give him a dose of metolazone before his a.m. dose of Bumex and see if he makes more urine. Sent for protein creatinine ratio, urine electrophoresis. Creatinine is 1.8, it is very likely that the patient's significant proteinuria is related to diabetes, however will rule out other causes. If the patient's renal function worsens will consider nephrology consult Patient otherwise feels much better, which is to go home. 03/12 Pt seen examined, no acute overnight issues pt is neg 7254 ml since admissin, diuresed well yesterday with metolozone and bumex, Renal functino is worsening, creat is 2.1, Hb continues to drop, now at 8.0, anemia workup sent, iron low, tibc at 10, retic 1.5, no e/o bleed prot creat ration reviewed, repeat ua is a barney sample, not sure how much importance to give to wbc/rbc, no e/o infection Pt is stable at baseline, but is very short of breath with minimal ambulation he has pain in the left knee, reports is stiff. 03/13 Slept well. No new complaints. His shortness of breath is continuing to improve. He has a mild occasional cough which is normal for him. Continue swelling in his legs. Renal function improving, diuretics held yesterday. Seen by nephrology yesterday. 03/14 Slept well no overnight events. Did have an episode of nausea vomiting last night after medication. 03/15 Seems to need oxygen at night. Otherwise no issues overnight. Feeling better today. Was very weak yesterday and did not work well with physical therapy 03/16 Healing better. Is more ambulatory past 24 hours. Feels like he can expand his lungs better after the thoracentesis. 1400 cc of transudate of pleural effusion removed yesterday. 03/17 Continues to feel well. Stable for discharge. On room air. Discussed with him the need for sleep study, follow-up with jig operator. Discharge diagnosis: Acute on chronic CHF acute on chronic renal failure Secondary discharge diagnosis: Anemia hypertension diabetes morbid obesity hypoxia with likely obstructive sleep apnea transitive pleural effusion history of pulmonary embolism lower extremity wounds obesity Likely obstructive sleep apnea - Time Spent with Patient Total time spent providing and/or coordinating discharge services: Greater than 30 minutes Medical - DS: Exam - Constitutional Vitals: Vital Signs Temp Pulse Pulse Pulse Resp BP BP 03/16/18 09:00 96.9 F L 67 67 18 156/56 03/16/18 08:00 20 03/16/18 04:15 97.4 F 64 16 151/60 03/16/18 00:11 98.9 F 69 16 140/69 03/15/18 19:30 98.4 F 70 18 166/51 03/15/18 17:00 97.6 F 70 20 155/53 03/15/18 11:39 97.6 F 18 BP Pulse Ox 03/16/18 09:00 91 03/16/18 08:00 03/16/18 04:15 95 03/16/18 00:11 98 03/15/18 19:30 95 03/15/18 17:00 94 03/15/18 11:39 161/66 95 Intake and Output 03/15/18 03/16/18 03/16/18 21:59 05:59 13:59 Intake Total 560 / 560 340 / 340 Output Total 1525 / 1525 450 / 450 Balance -965 / -965 -110 / -110 Intake: Oral 360 / 360 340 / 340 GI Tube Flush 200 / 200 Output: Urine Catheter Amount 1525 / 1525 450 / 450 Other: Urine Appearance Clear Clear Uretheral (Barney) Clear Clear Urine Color Dark Yellow Dark Mary Uretheral (Barney) Light Mary Bright Yellow Urine Odor Normal Weight 151.545 kg Medical - DS: Data Labs on day of discharge: Labs from last 24 hours 03/16/18 03/16/18 03/16/18 04:30 04:30 04:30 WBC 10.2 RBC 3.61 L Hgb 9.7 L Hct 30.0 L MCV 83.1 MCH 26.8 MCHC 32.3 RDW 18.5 H Plt Count 220 MPV 8.6 Gran % 71.8 Lymph % (Auto) 14.4 L Butts % (Auto) 10.8 Eos % (Auto) 2.5 Baso % (Auto) 0.5 Gran # 7.3 Lymph # (Auto) 1.5 Butts # (Auto) 1.1 H Eos # (Auto) 0.3 Baso # (Auto) 0.1 PT INR Sodium Pending 145 Potassium Pending 3.4 Chloride Pending 98 Carbon Dioxide Pending 35 H Anion Gap Pending 12.0 BUN Pending 26 H Creatinine Pending 1.6 H GFR Calculation Pending 45 Glucose Pending 35 L* Uric Acid 11.9 H Calcium Pending 8.7 Phosphorus 3.7 Magnesium 2.1 Total Bilirubin 0.3 Direct Bilirubin < 0.2 GGT 42 AST 19 ALT 12 Alkaline Phosphatase 108 Lactate Dehydrogenase 252 H Total Protein 6.9 Albumin 2.7 L Albumin (PEP) Globulin 4.2 H Globulin (PEP) Albumin/Globulin Ratio 0.6 L Albumin/Globulin (PEP) [id number]-Qzupbozec Ckkok-1-Pmrcchyok Beta Globulins Gamma Globulins PEP Interpretation Triglycerides 77 Fluid Total Protein Pleural Fluid Source Pleural Color Pleural Appearance Pleural RBC Pleural Tot Cell Ct Pleural Nuc Cells Pleural Neutrophils Pleural Lymphocytes Pleural Monocytes Pleural Plasma Cells Pleural Macrophages Pleural Mesothelial Pleural Diff Comment Pleural Total Protein Pleural LDH 03/16/18 03/15/18 03/15/18 04:30 14:56 14:56 WBC RBC Hgb Hct MCV MCH MCHC RDW Plt Count MPV Gran % Lymph % (Auto) Butts % (Auto) Eos % (Auto) Baso % (Auto) Gran # Lymph # (Auto) Butts # (Auto) Eos # (Auto) Baso # (Auto) PT 24.6 H INR 2.2 H Sodium Potassium Chloride Carbon Dioxide Anion Gap BUN Creatinine GFR Calculation Glucose Uric Acid Calcium Phosphorus Magnesium Total Bilirubin Direct Bilirubin GGT AST ALT Alkaline Phosphatase Lactate Dehydrogenase Total Protein Albumin Albumin (PEP) Globulin Globulin (PEP) Albumin/Globulin Ratio Albumin/Globulin (PEP) Kqhrd-5-Lecydootg Yxtgz-8-Fmwdwvtru Beta Globulins Gamma Globulins PEP Interpretation Triglycerides Fluid Total Protein TNP Pleural Fluid Source Pleural Pleural Color Yellow Pleural Appearance Clear Pleural RBC [address] 100 Pleural Nuc Cells 134 Pleural Neutrophils 33 Pleural Lymphocytes 21 Pleural Monocytes 24 Pleural Plasma Cells 1 Pleural Macrophages 11 Pleural Mesothelial 10 Pleural Diff Comment Comment Pleural Total Protein 1.4 Pleural LDH 63 03/13/18 04:26 WBC RBC Hgb Hct MCV MCH MCHC RDW Plt Count MPV Gran % Lymph % (Auto) Butts % (Auto) Eos % (Auto) Baso % (Auto) Gran # Lymph # (Auto) Butts # (Auto) Eos # (Auto) Baso # (Auto) PT INR Sodium Potassium Chloride Carbon Dioxide Anion Gap BUN Creatinine GFR Calculation Glucose Uric Acid Calcium Phosphorus Magnesium Total Bilirubin Direct Bilirubin GGT AST ALT Alkaline Phosphatase Lactate Dehydrogenase Total Protein Albumin Albumin (PEP) 2.46 L Globulin Globulin (PEP) 4.0 H Albumin/Globulin Ratio Albumin/Globulin (PEP) 0.6 L Zclhx-8-Ysonqchis 0.30 Nvghm-9-Okosktppe 0.87 Beta Globulins 1.04 Gamma Globulins 1.83 H PEP Interpretation Triglycerides Fluid Total Protein Pleural Fluid Source Pleural Color Pleural Appearance Pleural RBC Pleural Tot Cell Ct Pleural Nuc Cells Pleural Neutrophils Pleural Lymphocytes Pleural Monocytes Pleural Plasma Cells Pleural Macrophages Pleural Mesothelial Pleural Diff Comment Pleural Total Protein Pleural LDH Medical - DS: A/P - Patient/Caregiver Discharge Instructions Activity: as per physical therapy Diet: Consistent Carbohydrate Additional Instructions: f/u with PT/OT, Nursing. [facility] Rig[facility]. Prescriptions: Allopurinol [Zyloprim] 100 mg PO DAILY #30 tab Bumetanide [Bumex] 2 mg PO BIDD #120 tab Insulin Glargine, Human [Lantus] 45 unit SQ DAILY #1 unit Metoprolol Succinate [Toprol Xl] 50 mg PO HS #30 tab.xl.24h - Follow up Plan Follow up with: Rivera Mcintosh Jr, MD [Primary Care Provider] - Kassandra Torres MD [Physician] - Jerzy Michelle MD [Physician] - Disposition: Home Health Service Prognosis: Good Rehab Potential: Fair I certify that the patient requires SNF services: Yes Overall status at discharge: patient is progressing back to baseline Medical - DS: Qual - VTE Deep Vein Thrombosis/Pulmonary Embolism Present on Admission: Yes
[2018-03-16] MEDS: OXYMETAZOLINE 1 SPRAY BOTTLE NAS PRN ×2 (12:11→20:07)
[2018-03-16] MEDS: FERROUS SULFATE 325 MG TABLET PO SCH (12:11)
[2018-03-16] MEDS ORDERED: WARFARIN 5 MG TABLET PO ONE (14:00)
--- NOTE | 2018-03-16 14:38 | General Surgery Progress Note ---
Subjective Patient reports: other (No new complaints from the wound care point of view. Patient seen along with Jessica TRAN. Progress reviewed with Dr. Regalado hospitalist physician) Narrative: Note initiated : 03/16/18 at 2:34 pm Service Date, if different from initiated Date: [] Patient: Florencio Grace 62 y/o M admitted on 03/09/18 for SOB, CHF. Chief Complaint: [] Objective Temp Pulse Resp BP Pulse Ox 98.6 F 67 18 159/63 92 03/16/18 12:00 03/16/18 12:00 03/16/18 12:00 03/16/18 12:00 03/16/18 12:00 AVSS resting comfortably and speaking better. Clinically improved after thoracentesis with activity to get up in the bed, out of bed and ambulate with physical therapist. Right leg wound dermatitis and cellulitis has almost completely dissolved. Patient is responding to local wound care and suppression oral treatment with doxycycline 100 mg twice a day. Though the patient's wound cultures in the clinic revealed staph and enterococcus resistant to Bactrim and tetracycline, his clinical response to local care and doxycycline is quite impressive. I will therefore continue with current management and not make any further changes at this time. I had discussed this with Dr. Thao, infectious disease specialist. He will be discharged from the hospital to a rehabilitation facility and follow up with wound care center thereafter. - Additional Data Intake & Output - Last 24 hours: Intake & Output 03/14/18 03/15/18 03/16/18 03/17/18 05:59 05:59 05:59 05:59 Intake Total 400 / 400 870 / 870 1999 Output Total 5650 / 5650 1999 725 / 725 Balance -5250 / -5250 -1130 / -1130 -725 / -725 Weight 390 lb 339 lb 6.4 oz 334 lb 1.6 oz - Labs 03/16/18 04:30 03/16/18 04:30 Diabetes panel 03/16/18 Range/Units 04:30 Sodium 145 (133-145) mmol/L Potassium 3.4 (3.3-5.1) mmol/L Chloride 98 (96-108) mmol/L Carbon Dioxide 35 H (22-30) mmol/L BUN 26 H (8-23) mg/dl Creatinine 1.6 H (0.7-1.2) mg/dl Glucose 35 L* (70-105) mg/dL Calcium 8.7 (8.6-10.4) mg/dl AST 19 (0-37) U/l ALT 12 (0-40) U/l Alkaline Phosphatase 108 (39-117) U/L Total Protein 6.9 (5.9-8.4) gm/dL Albumin 2.7 L (3.2-5.2) gm/dL Triglycerides 77 (<150) mg/dl Calcium panel 03/16/18 Range/Units 04:30 Calcium 8.7 (8.6-10.4) mg/dl Phosphorus 3.7 (2.7-4.5) mg/dL Albumin 2.7 L (3.2-5.2) gm/dL Pituitary panel 03/16/18 Range/Units 04:30 Sodium 145 (133-145) mmol/L Potassium 3.4 (3.3-5.1) mmol/L Chloride 98 (96-108) mmol/L Carbon Dioxide 35 H (22-30) mmol/L BUN 26 H (8-23) mg/dl Creatinine 1.6 H (0.7-1.2) mg/dl Glucose 35 L* (70-105) mg/dL Calcium 8.7 (8.6-10.4) mg/dl Adrenal panel 03/16/18 Range/Units 04:30 Sodium 145 (133-145) mmol/L Potassium 3.4 (3.3-5.1) mmol/L Chloride 98 (96-108) mmol/L Carbon Dioxide 35 H (22-30) mmol/L BUN 26 H (8-23) mg/dl Creatinine 1.6 H (0.7-1.2) mg/dl Glucose 35 L* (70-105) mg/dL Calcium 8.7 (8.6-10.4) mg/dl Total Bilirubin 0.3 (0.0-1.0) mg/dL AST 19 (0-37) U/l ALT 12 (0-40) U/l Alkaline Phosphatase 108 (39-117) U/L Total Protein 6.9 (5.9-8.4) gm/dL Albumin 2.7 L (3.2-5.2) gm/dL Assessment and Plan (1) Dermatitis of lower extremity Status: Chronic Current Visit: Yes - Time Spent With Patient Total time spent is greater than 50% in coordination of care (as documented) at patient's floor/unit and/or counseling patient: Assessment: Satisfactory progress from the wound care ponder view. Congestive heart failure clinically improved. Patient is progress back to his ADLs. Plan: Okay to discharge from wound care ponder with continuation of ongoing management. Follow up with the wound care clinic as outpatient. 15 - 24 minutes
[2018-03-16] MEDS: TAMSULOSIN 0.4 MG CAPSULE PO SCH (20:08)
[2018-03-16] MEDS ORDERED: INSULIN GLARGINE, HUMAN 1 UNIT/0.01 ML SQ SCH (21:00)
[2018-03-16] MEDS ORDERED: METOPROLOL SUCCINATE 50 MG TAB.XL.24H PO SCH (21:00)
[2018-03-17] MEDS: OXYMETAZOLINE 1 SPRAY BOTTLE NAS PRN (05:03)
[2018-03-17] MEDS: 0.9 % SODIUM CHLORIDE 10 ML SYRINGE IV SCH (05:06)
[2018-03-17] MEDS ORDERED: ALLOPURINOL 100 MG TABLET PO SCH (09:00)
[2018-03-17] MEDS ORDERED: LOSARTAN 25 MG TABLET PO SCH (09:00)
[2018-03-17] MEDS: DOXYCYCLINE HYCLATE 100 MG TABLET.ORL PO SCH (09:49)
[2018-03-17] MEDS: BUMETANIDE 1 MG TABLET PO SCH (09:49)
[2018-03-17] MEDS: INSULIN LISPRO 1 UNIT/0.01 ML UNIT SQ SCH ×2 (11:51→11:52)
[2018-03-17 12:04] LABS: Alpha-2-Globulin 5 %; Pro/Creat Ratio 1102 mg/g cre (22-128)
[2018-03-17] MEDS ORDERED: WARFARIN 5 MG TABLET PO ONE (14:00)
[2018-03-21 08:37] LABS: RBC,Pleural Fluid < 50000 /cumm
== END 2018-03-17 12:50 | disposition home health service (06) | DRG 291 ==
LOC: ED 11:54 → ICU 14:16
PROVIDERS: ADMIT Internal Medicine; ATTEND Internal Medicine
CPT/HCPCS: 32555; 84145; 97161; 97167; 99223; 99231; 90732; A6248; J1205; J1756; J1815; J1817; J1940; J2405; J3475; J3480; J7060; J7620; J7620-GY

== ENCOUNTER 2018-11-22 16:41 | Inpatient (IN) ==
[2018-11-22] MEDS ORDERED: FUROSEMIDE 40 MG/4 ML VIAL IV ONE ×2 (17:39→19:05)
--- NOTE | 2018-11-22 17:39 | XRay Report ---
CLINICAL INFORMATION: sob COMPARISON: 03/16/2018 FINDINGS: Moderate cardiomegaly unchanged. Mediastinum is unremarkable. The pulmonary vessels are mildly distended and there is mild interstitial edema. Moderate left and small right pleural effusions. Small bibasilar atelectasis or infiltrates also noted IMPRESSION: Mild CHF Small bibasilar infiltrates or atelectasis. Bilateral pleural effusions noted Interpreted and Authenticated by: Elmo Youngblood 11/22/18
[2018-11-22 18:12] LABS: Basophils # (Auto) 0 K/mcL (0.0-0.3); Basophils % (Auto) 0.6 % (0.0-2.0); Eosinophils # (Auto) 0.2 K/mcL (0.0-0.7); Granulocytes % (Auto) 70.9 % (38.0-78.0); Hematocrit 35.3 % (41.0-55.0); Hemoglobin 11.2 g/dL (13.5-16.5); Lymphocytes # (Auto) 1.4 K/mcL (1.5-4.8); Lymphocytes % (Auto) 18.4 % (15.5-49.0); Mean Cell Volume 86.8 fL (80.0-100.0); Mean Corpuscular HGB Conc 31.7 g/dL (31.0-36.0); Mean Platelet Volume 8.3 fL (7.4-10.4); Monocytes # (Auto) 0.6 K/mcL (0.1-0.9); Monocytes % (Auto) 8.1 % (1.0-12.0); Platelet Count 139 K/mcL (140-440); RBC 4.07 M/mcL (4.50-5.90); Red Cell Distribution Width 16.8 % (11.5-14.5); WBC 7.8 K/mcL (4.5-11.0)
[2018-11-22 18:27] LABS: INR 3.3 (0.9-1.1); Prothrombin Time 33.4 sec (11.9-14.5)
[2018-11-22 18:37] LABS: ALT/SGPT 17 U/l (0-40); AST/SGOT 26 U/l (0-37); Albumin 3.1 gm/dL (3.2-5.2); Alkaline Phosphatase 106 U/L (39-117); Bilirubin,Total 0.3 mg/dL (0.0-1.0); Blood Urea Nitrogen 20 mg/dl (8-23); Calcium 8.2 mg/dl (8.6-10.4); Carbon Dioxide 27 mmol/L (22-30); Chloride 109 mmol/L (96-108); Globulin 3.1 gm/dL (2.2-3.7); Glomerular Filtration Rate 57; Glucose 75 mg/dL (70-105)
--- NOTE | 2018-11-22 19:09 | Emergency Department Note ---
Weakness HPI - General Chief complaint: Weakness Stated complaint: Cough, congestion, pale, weak Time Seen by Provider: 11/22/18 16:46 Source: patient Mode of arrival: ambulatory Limitations: no limitations - History of Present Illness HPI Narrative: 63-year-old male presents with generalized weakness and shortness of breath. Increasing shortness of breath over the last 2 weeks. He does have a cough and coughs up a clearish whitish phlegm. Also reports 17 pound weight gain in the last 6 weeks as well as 4+ pitting edema to the left lower extremity. States he has a little bit of swelling normally but never this severe. [facility] and sent to the ER for further evaluation today. No fever or chills. No nausea, vomiting, or diarrhea. Has had this in the past and had to have fluid drawn off his lungs. He thinks it was a little over a year ago. States he has become completely activity intolerant because he gets so extremely short of breath even just trying to get to the car today. Associated symptoms: Reports: easy bruising, loss of appetite, shortness of breath. Denies: chest pain, confusion, diaphoresis, dysuria, fever/chills, headaches, nausea/vomiting, rash, syncope - Related Data Home Medications Medication Instructions Recorded Confirmed Loperamide [Imodium] 2 mg PO PRN PRN 03/08/18 04/15/18 Tamsulosin [Flomax] 0.4 mg PO HS 03/08/18 04/15/18 Warfarin [Coumadin] 5 mg PO DAILY 03/08/18 04/15/18 Ergocalciferol (Vitamin D2) 50,000 unit PO 3XW 03/09/18 04/15/18 [Vitamin D2] Isosorbide Mononitrate [Imdur] 60 mg PO DAILY 03/09/18 04/15/18 insulin glargine (U- 100) 100 60 unit SUB-Q DAILY unit 03/22/18 04/15/18 unit/mL subcutaneous solution atorvastatin 10 mg tablet 10 mg PO QDAY 03/23/18 04/15/18 cetirizine 10 mg tablet 10 mg PO QDAY 03/23/18 04/15/18 guaifenesin 100 mg/5 mL oral liquid 100 mg PO Q4H PRN ml 03/23/18 04/15/18 metformin 1,000 mg tablet 1,000 mg PO BID 03/23/18 04/15/18 montelukast 10 mg tablet 10 mg PO QPM 03/23/18 04/15/18 multivitamin,ve-nqjg-myohvvjg 1 tab PO QDAY 03/23/18 04/15/18 tablet spironolactone 100 mg tablet 100 mg PO QDAY 03/23/18 04/15/18 valsartan 320 mg tablet 320 mg PO QDAY 03/23/18 04/15/18 Previous Rx's Medication Instructions Recorded doxycycline hyclate 100 mg tablet 100 mg PO BID #30 tab 04/15/18 Allergies Allergy/AdvReac Type Severity Reaction Status Date / Time No Known Drug Allergies Allergy Verified 04/15/18 09:48 Review of Systems All systems ED: reviewed and negative except as stated. Past Medical History - Past Medical History [facility] Narrative: Medical History (Last Reviewed 04/15/18 @ 10:00 by Mariama Larkin RN) CKD (chronic kidney disease) (Chronic) Anemia (Chronic) Pulmonary embolism (Chronic) Heart failure (Chronic) Hypertension (Chronic) Diabetes (Chronic) Colon cancer (Chronic) SOB (shortness of breath) (Chronic) Ankle fracture (Chronic) Past Surgical History (Last Reviewed 04/15/18 @ 10:00 by Mariama Larkin RN) History of total replacement of right ankle (Chronic) History of orthopedic surgery (Chronic) History of open reduction and internal fixation (ORIF) procedure (Chronic) History of partial colectomy (Chronic) Medical history: Reports: CHF, DM, hypertension Surgical history ED: Reports: other (right ankle surgery) - Social History smoking status: Never smoker Alcohol use: Reports: None Drug use: Reports: none Physical Exam Limitations: no limitations General appearance: alert, other (Speaks 2 words at a time and is mildly short of breath on arrival.) Head: atraumatic, normocephalic, normal inspection Eye: Present: normal appearance. Absent: conjunctival injection ENT: Present: normal exam, normal oropharynx, mucous membranes moist, TM's normal bilaterally, normal external ear exam Neck: Present: normal inspection, trachea midline. Absent: tenderness, lymphadenopathy Chest: Present: symmetric chest wall rise Respiratory: Present: respiratory distress, wheezes (Diminished in the bases and faint expiratory wheezing throughout, tachypneic on arrival), accessory muscle use Cardiovascular: Present: regular rate, normal heart sounds Extremities: Absent: normal inspection (Right leg amputation, left lower extremity with 3-4+ pitting edema and weeping) Neurological: Present: alert, oriented X3 Psychiatric: Present: normal affect, normal mood Skin: Present: warm, dry, intact, normal color Course Course Narrative: @1999 I did speak with hospitalist Dr. Olmos who agrees to accept this pt. Vital Signs Temperature 98.1 F 11/22/18 16:43 Pulse Rate 75 11/22/18 16:43 Respiratory Rate 18 11/22/18 16:43 Blood Pressure 161/78 11/22/18 16:43 Pulse Oximetry (%) 92 11/22/18 16:43 Temperature 98.1 F 11/22/18 16:43 Pulse Rate 72 11/22/18 19:50 Respiratory Rate 25 H 11/22/18 19:47 Blood Pressure 147/65 11/22/18 19:47 Pulse Oximetry (%) 92 11/22/18 19:50 Weakness - Lab Data Result diagrams: 11/22/18 17:20 11/22/18 17:20 Lab Results 11/22/18 11/22/18 11/22/18 Range/Units 17:20 17:20 17:20 WBC 7.8 (4.5-11.0) K/mcL RBC 4.07 L (4.50-5.90) M/mcL Hgb 11.2 L (13.5-16.5) g/dL Hct 35.3 L (41.0-55.0) % MCV 86.8 (80.0-100.0) fL MCH 27.5 (26.0-34.0) pg MCHC 31.7 (31.0-36.0) g/dL RDW 16.8 H (11.5-14.5) % Plt Count 139 L (140-440) K/mcL MPV 8.3 (7.4-10.4) fL Gran % 70.9 (38.0-78.0) % Lymph % (Auto) 18.4 (15.5-49.0) % Cavalier % (Auto) 8.1 (1.0-12.0) % Eos % (Auto) 2.0 (0.0-7.0) % Baso % (Auto) 0.6 (0.0-2.0) % Gran # 5.5 (1.8-8.0) K/mcL Lymph # (Auto) 1.4 L (1.5-4.8) K/mcL Cavalier # (Auto) 0.6 (0.1-0.9) K/mcL Eos # (Auto) 0.2 (0.0-0.7) K/mcL Baso # (Auto) 0 (0.0-0.3) K/mcL PT 33.4 H (11.9-14.5) sec INR 3.3 H (0.9-1.1) Sodium 145 (133-145) mmol/L Potassium 3.6 (3.3-5.1) mmol/L Chloride 109 H (96-108) mmol/L Carbon Dioxide 27 (22-30) mmol/L Anion Gap 9.0 (8-16) BUN 20 (8-23) mg/dl Creatinine 1.3 H (0.7-1.2) mg/dl GFR Calculation 57 Glucose 75 (70-105) mg/dL Calcium 8.2 L (8.6-10.4) mg/dl Total Bilirubin 0.3 (0.0-1.0) mg/dL AST 26 (0-37) U/l ALT 17 (0-40) U/l Alkaline Phosphatase 106 (39-117) U/L Troponin T (0-0.03) ng/ml NT-Pro-B Natriuret Pep 86383.0 H (0-125) pg/ml Total Protein 6.2 (5.9-8.4) gm/dL Albumin 3.1 L (3.2-5.2) gm/dL Globulin 3.1 (2.2-3.7) gm/dL Albumin/Globulin Ratio 1.0 (1.0-2.3) 11/22/18 Range/Units 17:20 WBC (4.5-11.0) K/mcL RBC (4.50-5.90) M/mcL Hgb (13.5-16.5) g/dL Hct (41.0-55.0) % MCV (80.0-100.0) fL MCH (26.0-34.0) pg MCHC (31.0-36.0) g/dL RDW (11.5-14.5) % Plt Count (140-440) K/mcL MPV (7.4-10.4) fL Gran % (38.0-78.0) % Lymph % (Auto) (15.5-49.0) % Cavalier % (Auto) (1.0-12.0) % Eos % (Auto) (0.0-7.0) % Baso % (Auto) (0.0-2.0) % Gran # (1.8-8.0) K/mcL Lymph # (Auto) (1.5-4.8) K/mcL Cavalier # (Auto) (0.1-0.9) K/mcL Eos # (Auto) (0.0-0.7) K/mcL Baso # (Auto) (0.0-0.3) K/mcL PT (11.9-14.5) sec INR (0.9-1.1) Sodium (133-145) mmol/L Potassium (3.3-5.1) mmol/L Chloride (96-108) mmol/L Carbon Dioxide (22-30) mmol/L Anion Gap (8-16) BUN (8-23) mg/dl Creatinine (0.7-1.2) mg/dl GFR Calculation Glucose (70-105) mg/dL Calcium (8.6-10.4) mg/dl Total Bilirubin (0.0-1.0) mg/dL AST (0-37) U/l ALT (0-40) U/l Alkaline Phosphatase (39-117) U/L Troponin T < 0.01 (0-0.03) ng/ml NT-Pro-B Natriuret Pep (0-125) pg/ml Total Protein (5.9-8.4) gm/dL Albumin (3.2-5.2) gm/dL Globulin (2.2-3.7) gm/dL Albumin/Globulin Ratio (1.0-2.3) Disposition Pt seen by PANEL EDGE PAINTER/PA only: Yes Clinical Impression: CHF (congestive heart failure), SOB (shortness of breath), Pedal edema, Hypercoagulable state Disposition: Xfer As Outpt/Obs ([facility]) Condition: Fair Referrals: Hayley Moore MD [Primary Care Provider] - Time of Disposition: 20:00
--- NOTE | 2018-11-22 20:16 | Internal Med History&Physical ---
Medical - H&P: [facility] Patient information: Note initiated : 11/22/18 at 8:13 pm Service Date, if different from initiated Date: [] Patient: Florencio Grace a 63 y/o M admitted on for Cough, congestion, pale, weak. Chief Complaint: [] Chief complaint: S OB, swelling History of present illness: Mr. Grace is a 63 year old M with a history of chronic kidney disease/morbid obesity, diabetes,hypertension chronic right lower extremity wound status post BKA who now presents with 2 weeks onset of progressive shortness of breath, weight gain, orthopnea and generalized fatigue. Patient lives at home alone and receives help from a caregiver. He denies changes in medication but has been taking Advil over the last few days for his degenerative joint pain. He has a right BKA prosthesis and usually ambulates well. He has been keeping check on his daily weights but his normal dose of Lasix has not been effective. He denies changes in medication or missing doses. Denies fever chills or sick contacts. Denies excessive salt diet. Presents to the ER with above symptoms. Initial work-up was consistent with CHF/pleural effusion and volume overload. Patient was started on diuretics. Hospitalist service was consulted for admission. At the time of evaluation patient is accompanied with his sister therapy. He was able to answer most of the question and endorsed to history as above. He is markedly short of breath and unable to talk in full sentences. He endorses orthopnea but denies PND or bloody sputum, diarrhea, dysuria. He responded well to dose of Lasix in the ER Review of system 10 point review of system was performed and is negative except was discussed above Medical - H&P: PMH Medical history: DM type 2 with retinopathy, neuropathy HTN CHF, low EF morbid obesity chronic wound in right LE CKD dyslipidemia colon cancer ? h/o PE, pt denies Past surgical history: Right BKA April [address] Dr. 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 denies any addictions at present No alcoholism Medical - H&P: Meds Home Medications Medication Instructions Recorded Confirmed Type Loperamide [Imodium] 2 mg PO PRN PRN 03/08/18 04/15/18 History Tamsulosin [Flomax] 0.4 mg PO HS 03/08/18 04/15/18 History Warfarin [Coumadin] 5 mg PO DAILY 03/08/18 04/15/18 History Ergocalciferol (Vitamin D2) 50,000 unit PO 3XW 03/09/18 04/15/18 History [Vitamin D2] Isosorbide Mononitrate [Imdur] 60 mg PO DAILY 03/09/18 04/15/18 History insulin glargine (U- 100) 100 60 unit SUB-Q DAILY unit 03/22/18 04/15/18 History unit/mL subcutaneous solution atorvastatin 10 mg tablet 10 mg PO QDAY 03/23/18 04/15/18 History cetirizine 10 mg tablet 10 mg PO QDAY 03/23/18 04/15/18 History guaifenesin 100 mg/5 mL oral liquid 100 mg PO Q4H PRN ml 03/23/18 04/15/18 History metformin 1,000 mg tablet 1,000 mg PO BID 03/23/18 04/15/18 History montelukast 10 mg tablet 10 mg PO QPM 03/23/18 04/15/18 History multivitamin,sb-lslf-jiefonhc 1 tab PO QDAY 03/23/18 04/15/18 History tablet spironolactone 100 mg tablet 100 mg PO QDAY 03/23/18 04/15/18 History valsartan 320 mg tablet 320 mg PO QDAY 03/23/18 04/15/18 History doxycycline hyclate 100 mg tablet 100 mg PO BID #30 tab 04/15/18 04/15/18 Rx Allergies Allergy/AdvReac Type Severity Reaction Status Date / Time No Known Drug Allergies Allergy Verified 04/15/18 09:48 Medical - H&P: Exam - Constitutional Vitals: Temp Pulse Resp BP Pulse Ox 98.1 F 74 16 148/74 95 11/22/18 16:43 11/22/18 20:10 11/22/18 20:10 11/22/18 20:02 11/22/18 20:10 General appearance: morbidly obese Exam: Short of breath Alert and oriented Minimally labored breathing Eye movement symmetrical Oral cavity dry No ear nose discharge head normocephalic Neck no lymphadenopathy S1-S2 regular rhythm diminished breath sounds Late inspiratory crackles Diminished bowel sounds, pendulous abdomen Lower extremity right BKA ( Left lower extremity pitting edema Skin multiple area of bruising of her lower extremity Psych alert cooperative Neuro nonfocal Medical - H&P: Reslt - Labs CBC & Chem 7: 11/22/18 17:20 11/22/18 17:20 Labs: Short CBC 11/22/18 Range/Units 17:20 WBC 7.8 (4.5-11.0) K/mcL Hgb 11.2 L (13.5-16.5) g/dL Hct 35.3 L (41.0-55.0) % Plt Count 139 L (140-440) K/mcL BMP 11/22/18 17:20 Sodium 145 Potassium 3.6 Chloride 109 H Carbon Dioxide 27 BUN 20 Creatinine 1.3 H Glucose 75 Calcium 8.2 L Cardiac Enzymes 11/22/18 Range/Units 17:20 Troponin T < 0.01 (0-0.03) ng/ml Liver Function 11/22/18 Range/Units 17:20 Total Bilirubin 0.3 (0.0-1.0) mg/dL AST 26 (0-37) U/l ALT 17 (0-40) U/l Alkaline Phosphatase 106 (39-117) U/L Albumin 3.1 L (3.2-5.2) gm/dL Medical - H&P: A/P (1) Heart failure with acute decompensation, type unknown Current visit: Yes Status: Acute * Acute decompensated heart failure-start aggressive diuresis, echocardiogram, optimize CHF management based on echo findings. * Hypoxic respiratory failure secondary to pulmonary edema/pleural effusion secondary to CHF-continue supplemental oxygen/pulmonary toilet * DM type II continue basal * History of coronary disease continue statin/isosorbide/ARB/Coumadin/prolactin * Anticoagulation on Coumadin-continue dosing based on INR * Full code * Prophylaxis Coumadin, INR therapeutic Plan * Inpatient telemetry admit, anticipate a minimum of 2 midnight hospitalization * Aggressive diuresis * Echocardiogram * Continue CHF management based on echo findings * pre-existing well condition management home meds * PT OT nutrition support * Coumadin dosing based on INR
[2018-11-22] MEDS ORDERED: CYANOCOBALAMIN (VITAMIN B-12) 500 MCG TABLET PO SCH (21:00)
[2018-11-22] MEDS ORDERED: DOCUSATE SODIUM 100 MG CAPSULE PO SCH (21:48)
[2018-11-22] MEDS ORDERED: DEXTROSE 31 GM ORAL.SUSP PO PRN (21:48)
[2018-11-22] MEDS ORDERED: ACETAMINOPHEN 325 MG TABLET PO PRN (21:48)
[2018-11-22] MEDS ORDERED: guaiFENesin/CODEINE 10 ML UDC PO PRN (21:48)
[2018-11-22] MEDS ORDERED: POTASSIUM CHLORIDE 20 MEQ PACKET PO PRN (21:48)
[2018-11-22] MEDS ORDERED: SENNOSIDES/DOCUSATE SODIUM 1 TAB TABLET PO SCH (21:48)
[2018-11-22] MEDS ORDERED: ONDANSETRON 4 MG/2 ML VIAL IV PRN (21:48)
[2018-11-22] MEDS ORDERED: MAGNESIUM HYDROXIDE 30 ML ORAL.SUSP PO PRN (21:48)
[2018-11-22] MEDS ORDERED: DEXTROSE 50% 50 ML VIAL IV PRN (21:48)
[2018-11-22] MEDS ORDERED: ACETAMINOPHEN 1,000 MG/100 ML BOTTLE IV PRN (21:48)
[2018-11-22] MEDS ORDERED: traZODone HCL 50 MG TABLET PO PRN (21:48)
[2018-11-22] MEDS ORDERED: INSULIN LISPRO 1 UNIT/0.01 ML UNIT SQ SCH (21:48)
[2018-11-22] MEDS ORDERED: POLYETHYLENE GLYCOL 3350 17 GM PACKET PO PRN (21:48)
[2018-11-22] MEDS ORDERED: IPRATROPIUM/ALBUTEROL 3 ML AMPUL.NEB NEB PRN (21:48)
[2018-11-22] MEDS ORDERED: MAGNESIUM SULFATE 2 GM/50 ML BAG IV PRN (21:48)
[2018-11-22] MEDS: 0.9 % SODIUM CHLORIDE 10 ML SYRINGE IV SCH (23:18)
[2018-11-22] MEDS: FUROSEMIDE 40 MG/4 ML VIAL IV SCH (23:33)
[2018-11-23] MEDS ORDERED: hydrALAZINE 20 MG/ML VIAL IV PRN ×2 (00:04→07:18)
[2018-11-23] MEDS ORDERED: hydrALAZINE 20 MG/ML VIAL ONE (00:08)
[2018-11-23] MEDS ORDERED: PIPERACILLIN SODIUM/TAZOBACTAM 3.375 GM in DEXTROSE 5% IN WATER 50 ML IV SCH (05:15)
--- NOTE | 2018-11-23 06:15 | Cat Scan Report ---
CLINICAL INFORMATION: Code stroke COMPARISON: None. TECHNIQUE: 2.5 mm helical slices were obtained in the skull base to vertex. Following reconstruction, axial reformatted images were reviewed at bone and parenchymal windows. The exam was performed using radiation dose optimization techniques including, but not limited to, automated exposure control, adjustment of the mA and/or kV according to patient size and use of iterative reconstruction technique. FINDINGS: The ventricles, sulci, fissures, and cisterns are symmetrically enlarged compatible with mild age-related atrophy.. No extra-axial fluid collections are identified. 11 mm partially calcified meningioma in the left middle cranial fossa appreciated cruciate Moderate patchy chronic ischemic changes are seen in the deep cerebral white matter.. There is no evidence of hemorrhage, mass effect, or edema. Bone windows show no osseous abnormality. IMPRESSION: Mild atrophy and chronic ischemic changes in the cerebral white matter compatible with age. No intracerebral hemorrhage or other acute finding. 11 mm partially calcified meningioma in the left middle cranial fossa - adjacent to the anterior left temporal lobe. This is likely clinically insignificant Interpreted and Authenticated by: Elmo Youngblood 11/23/18
[2018-11-23 06:17] LABS: Hematocrit 35.8 % (41.0-55.0); Hemoglobin 11.4 g/dL (13.5-16.5); Mean Cell Volume 87.2 fL (80.0-100.0); Mean Corpuscular HGB Conc 31.9 g/dL (31.0-36.0); Mean Platelet Volume 8.4 fL (7.4-10.4); Platelet Count 130 K/mcL (140-440); Red Cell Distribution Width 16.9 % (11.5-14.5); WBC 10.6 K/mcL (4.5-11.0)
[2018-11-23] MEDS ORDERED: NOREPINEPHRINE BITARTRATE 8 MG in 0.9 % SODIUM CHLORIDE 242 ML IV SCH (06:30)
[2018-11-23] MEDS ORDERED: 0.9 % SODIUM CHLORIDE 250 ML IV SCH (06:30)
[2018-11-23] MEDS: FUROSEMIDE 40 MG/4 ML VIAL IV SCH (06:32)
[2018-11-23] MEDS: 0.9 % SODIUM CHLORIDE 10 ML SYRINGE IV SCH ×3 (06:37→22:49)
[2018-11-23 06:44] LABS: ALT/SGPT 15 U/l (0-40); AST/SGOT 26 U/l (0-37); Albumin 2.8 gm/dL (3.2-5.2); Albumin/Globulin Ratio 0.9 (1.0-2.3); Alkaline Phosphatase 99 U/L (39-117); Bilirubin,Direct < 0.2 mg/dL (0.0-0.3); Bilirubin,Total 0.5 mg/dL (0.0-1.0); Blood Urea Nitrogen 20 mg/dl (8-23); Calcium 7.8 mg/dl (8.6-10.4); Carbon Dioxide 27 mmol/L (22-30); Chloride 107 mmol/L (96-108); Globulin 3.1 gm/dL (2.2-3.7); Glomerular Filtration Rate 45; Glucose 84 mg/dL (70-105); Lactate Dehydrogenase 314 U/L (94-250); Triglycerides 94 mg/dl (<150); Uric Acid 6.9 mg/dL (2.5-8.0)
--- NOTE | 2018-11-23 07:00 | XRay Report ---
CLINICAL INFORMATION: CHF COMPARISON: 11/22/2018 FINDINGS: Moderate cardiomegaly show slight increased. Mediastinum is unremarkable. Pulmonary vessels have decreased in caliber are now only mildly distended. Large dense consolidated region of atelectasis or ala less likely, infiltrate developed in the left lower lobe with increasing moderate left pleural effusion. Small infiltrate or atelectasis right lung base with moderate right pleural effusion has also worsened IMPRESSION: Mild CHF - improving Large region of dense consolidated atelectasis or, less likely, infiltrate left lower lobe with moderate left pleural effusion has worsened. Smaller infiltrate or atelectasis developing in the right lower lobe moderate right pleural effusion also worsening. Consider aspiration Interpreted and Authenticated by: Elmo Youngblood 11/23/18
[2018-11-23 07:11] LABS: INR 3.2 (0.9-1.1); Prothrombin Time 32.6 sec (11.9-14.5)
[2018-11-23] MEDS ORDERED: guaiFENesin/CODEINE 10 ML UDC PO PRN (07:18)
[2018-11-23] MEDS ORDERED: DEXTROSE 31 GM ORAL.SUSP PO PRN (07:18)
[2018-11-23] MEDS ORDERED: POTASSIUM CHLORIDE 20 MEQ PACKET PO PRN (07:18)
[2018-11-23] MEDS ORDERED: ACETAMINOPHEN 325 MG TABLET PO PRN (07:18)
[2018-11-23] MEDS ORDERED: MAGNESIUM SULFATE 2 GM/50 ML BAG IV PRN (07:18)
[2018-11-23] MEDS ORDERED: ACETAMINOPHEN 1,000 MG/100 ML BOTTLE IV PRN (07:18)
[2018-11-23] MEDS ORDERED: POLYETHYLENE GLYCOL 3350 17 GM PACKET PO PRN (07:18)
[2018-11-23] MEDS ORDERED: MAGNESIUM HYDROXIDE 30 ML ORAL.SUSP PO PRN (07:18)
[2018-11-23] MEDS ORDERED: DEXTROSE 50% 50 ML VIAL IV PRN (07:18)
[2018-11-23] MEDS ORDERED: ONDANSETRON 4 MG/2 ML VIAL IV PRN (07:18)
[2018-11-23] MEDS ORDERED: IPRATROPIUM/ALBUTEROL 3 ML AMPUL.NEB NEB PRN (07:18)
[2018-11-23] MEDS ORDERED: traZODone HCL 50 MG TABLET PO PRN (07:18)
[2018-11-23 07:32] LABS: Anisocytosis 1+ (NONE SEEN); Eosinophils % (Manual) 1 % (0-7); Lymphocytes % 11 % (15-49); Monocytes % (Manual) 6 % (1-12); Platelet Estimate DECREASED (NORMAL); Polychromasia FEW (NONE SEEN); RBC Morphology ABNORM (NORMAL); Segmented Neutrophils % 82 % (38-78)
[2018-11-23] MEDS ORDERED: FUROSEMIDE 40 MG/4 ML VIAL IV SCH (08:00)
[2018-11-23] MEDS: INSULIN LISPRO 1 UNIT/0.01 ML UNIT SQ SCH ×4 (08:35→20:49)
[2018-11-23] MEDS: 0.9 % SODIUM CHLORIDE 250 ML IV SCH (08:35)
--- NOTE | 2018-11-23 08:39 | Ultrasound Report ---
CLINICAL INFORMATION: CVA COMPARISON: None. TECHNIQUE: Spectral Doppler velocity measurements were obtained in the proximal, mid and distal common and internal carotid, both vertebral and proximal external carotid arteries bilaterally. Supplemental color and power Doppler imaging was also obtained to optimize stenosis detection. In reporting, any internal carotid stenosis was indirectly quantified comparing the distal internal carotid velocity. For ratio comparison, the internal carotid artery, at the level of stenosis, was utilized in the numerator and the normal distal internal carotid artery velocity was utilized as the denominator. Velocities are validated with angiographic measurements extrapolated from diameter data - as defined by the Society of Radiologists in Ultrasound Consensus Conference .Radiology 2003; 229; 340 - 346. FINDINGS: See worksheet by the technologist for velocities in PACS IMPRESSION: Both common, internal and external carotid arteries are widely patent. There is fibrofatty calcific plaque in both carotid bifurcation. Antegrade flow present in both vertebral arteries. Please correlate with CTA CT Angiography or MRA MR Angiography if surgery is contemplated. Interpreted and Authenticated by: Elmo Youngblood 11/23/18
[2018-11-23] MEDS ORDERED: FOLIC ACID 1 MG TABLET PO SCH (09:00)
[2018-11-23] MEDS ORDERED: THIAMINE 100 MG TABLET PO SCH (09:00)
[2018-11-23] MEDS ORDERED: MULTIVIT,THER IRON,CA,FA & MIN 1 TABLET PO SCH (09:00)
[2018-11-23] MEDS ORDERED: sitaGLIPtin 100 MG TABLET PO SCH (09:00)
[2018-11-23] MEDS: FOLIC ACID 1 MG TABLET PO SCH (09:22)
[2018-11-23] MEDS: THIAMINE 100 MG TABLET PO SCH (09:22)
[2018-11-23] MEDS: DOCUSATE SODIUM 100 MG CAPSULE PO SCH ×3 (09:22→20:49)
[2018-11-23] MEDS: CYANOCOBALAMIN (VITAMIN B-12) 500 MCG TABLET PO SCH ×2 (09:22→20:49)
[2018-11-23] MEDS: sitaGLIPtin 100 MG TABLET PO SCH ×2 (09:22→09:27)
[2018-11-23] MEDS: MULTIVIT,THER IRON,CA,FA & MIN 1 TABLET PO SCH (09:22)
--- NOTE | 2018-11-23 09:35 | Internal Med Progress Note ---
Medical - PN: Subj Patient information: Note initiated : 11/23/18 at 9:32 am Service Date, if different from initiated Date: [] Patient: Florencio Grace a 63 y/o M admitted on 11/22/18 for Cough, congestion, pale, weak. Chief Complaint: [] Interval history: Mr. Grace is a 63 year old M with a history of chronic kidney disease/morbid obesity, diabetes,hypertension chronic right lower extremity wound status post B KA who now presents with 2 weeks onset of progressive shortness of breath, weight gain, orthopnea and generalized fatigue. Patient lives at home alone and receives help from a caregiver. He denies changes in medication but has been taking Advil over the last few days for his degenerative joint pain. He has a right BKA prosthesis and usually ambulates well. He has been keeping check on his daily weights but his normal dose of Lasix has not been effective. He denies changes in medication or missing doses. Denies fever chills or sick contacts. Denies excessive salt diet. Presents to the ER with above symptoms. Initial work-up was consistent with CHF/pleural effusion and volume overload. Patient was started on diuretics. Hospitalist service was consulted for admission. At the time of evaluation patient is accompanied with his sister therapy. He was able to answer most of the question and endorsed to history as above. He is markedly short of breath and unable to talk in full sentences. He endorses orthopnea but denies PND or bloody sputum, diarrhea, dysuria. He responded well to dose of Lasix in the ER / -patient responded well to diuretics overnight however 70s show dramatic changes around 3 this morning. Unequal pupil with left-sided facial droop. Code stroke was activated. Patient systolics dropped from 180s to 110s. Patient febrile. Sepsis work-up ordered. Started on crystalloid challenge and diuretics. Started vasopressors to keep map at goal. MRI brain/MR angiogram head neck ordered. Transfer to ICU. INR therapeutic at 3.2. Creatinine 1.6 precludes use of contrast in the setting of sepsis. Patient now hypoxic requiring 4 L of oxygen. Left lower lobe large and dense consolidation with multifocal right lower lobe infiltrates stable aspiration/pneumonia. - Constitutional Vitals: Vital Signs Temp Pulse Resp BP Pulse Ox 100.3 F H 101 H 22 128/69 96 11/23/18 04:00 11/23/18 05:37 11/23/18 05:37 11/23/18 04:00 11/23/18 06:22 Period Temp Pulse Resp BP Sys/Bush Pulse Ox Last 24 Hr 97.2 F-100.3 F 62-115 8-30 128-204/59-180 75-97 Intake and Output 11/22/18 11/23/18 11/23/18 21:59 05:59 13:59 Intake Total 600 6 Output Total 4400 250 Balance -3800 -244 Weight 341 lb 337 lb 8 oz Intake & Output: Intake & Output 11/22/18 11/23/18 11/23/18 21:59 05:59 13:59 Intake Total 600 6 Output Total 4400 250 Balance -3800 -244 Weight 341 lb 337 lb 8 oz Intake: IV 6 Levophed 8 mg In Sodium 6 Chloride 0.9% 242 ml @ 10 MCG/ MIN 18.75 mls/hr IV Q14H [facility] Rx #:[id number] Oral 600 Output: Urine Catheter Amount 4400 250 Other: Meal Dinner Percent of Meal Consumed 75% Feeding Ability Independent Urine Appearance Clear Uretheral (Mayo) Clear Clear Urine Color Pale Straw Uretheral (Mayo) Pale Pale Straw Exam: Diminished breath sounds Mayo draining clear urine On pressors Acute mental status change, confused Tachypneic On 4 L oxygen Medical - PN: Obj Da - Labs CBC & Chem 7: 11/23/18 03:40 11/23/18 03:40 Labs: Abnormal Lab Results 11/23/18 11/23/18 11/23/18 06:00 03:40 03:40 RBC 4.10 L Hgb 11.4 L Hct 35.8 L RDW 16.9 H Plt Count 130 L Lymph # (Auto) Seg Neutrophils % 82 H Lymphocytes % 11 L Platelet Estimate Decreased A RBC Morphology Abnorm A Polychromasia Few A Anisocytosis 1+ A PT 32.6 H INR 3.2 H APTT 40 H Sodium 147 H Chloride Creatinine 1.6 H Calcium 7.8 L Lactate Dehydrogenase 314 H NT-Pro-B Natriuret Pep Albumin 2.8 L Albumin/Globulin Ratio 0.9 L 11/22/18 11/22/18 11/22/18 17:20 17:20 17:20 RBC 4.07 L Hgb 11.2 L Hct 35.3 L RDW 16.8 H Plt Count 139 L Lymph # (Auto) 1.4 L Seg Neutrophils % Lymphocytes % Platelet Estimate RBC Morphology Polychromasia Anisocytosis PT 33.4 H INR 3.3 H APTT Sodium Chloride 109 H Creatinine 1.3 H Calcium 8.2 L Lactate Dehydrogenase NT-Pro-B Natriuret Pep 48496.0 H Albumin 3.1 L Albumin/Globulin Ratio Meds: Medications Acetaminophen (Tylenol) 650 mg PO Q4-6HP PRN PRN Reason: PAIN/FEVER > 101 Last Admin: 11/23/18 09:19 Dose: 650 mg Documented by: Albuterol/Ipratropium (Duoneb) 3 ml NEB Q4HP PRN PRN Reason: Shortness Of Breath Cyanocobalamin (Vitamin B-12) 1,000 mcg PO BID [facility] Stop: 11/27/18 09:01 Last Admin: 11/23/18 09:22 Dose: 1,000 mcg Documented by: Dextrose (Dextrose 50%) 0 ml IV UD PRN PRN Reason: Hypoglycemia Diagnostic Test (Pha) (Accu-Chek) 1 each FS ACHS [facility] Last Admin: 11/23/18 06:30 Dose: 1 each Documented by: Docusate Sodium (Colace) 100 mg PO BID [facility] Last Admin: 11/23/18 09:26 Dose: Not Given Documented by: Folic Acid (Folic Acid) 1 mg PO DAILY [facility] Last Admin: 11/23/18 09:22 Dose: 1 mg Documented by: Glucose (Insta-Glucose) 15 gm PO PRN PRN PRN Reason: Hypoglycemia Guaifenesin/Codeine Phosphate (Robitussin Ac) 10 ml PO Q4HP PRN PRN Reason: Cough Hydralazine HCl (Apresoline) 10 mg IV Q4HP PRN PRN Reason: Hypertension Magnesium Sulfate (Magnesium Sulfate) 2 gm in 50 mls @ 50 mls/hr IV UD PRN PRN Reason: MG = or < 1.7 Norepinephrine Bitartrate 8 mg (/ Sodium Chloride) 250 mls @ 18.75 mls/hr IV Q14H [facility]; Protocol Sodium Chloride (Sodium Chloride 0.9%) 250 mls @ 20 mls/hr IV .[id number] [facility] Last Admin: 11/23/18 08:35 Dose: 20 mls/hr Documented by: Acetaminophen (Ofirmev) 1,000 mg in 100 mls @ 200 mls/hr IV Q6HP PRN PRN Reason: PAIN/FEVER > 101 Piperacillin Sod/Tazobactam (Sod 3.375 gm/ Dextrose) 50 mls @ 100 mls/hr IV Q6H [facility]; Protocol Insulin Human Lispro (Humalog) 0 unit SQ ACHS [facility]; Protocol Last Admin: 11/23/18 08:35 Dose: Not Given Documented by: Iron Carb/Multivit/Plain/Folic Acid (Multivitamin W/Minerals) 1 tab PO DAILY [facility] Last Admin: 11/23/18 09:22 Dose: 1 tab Documented by: Magnesium Hydroxide (Milk Of Magnesia) 30 ml PO HSP PRN PRN Reason: Constipation Ondansetron HCl (Zofran) 4 mg IV Q4-6HP PRN PRN Reason: Nausea And Vomiting Polyethylene Glycol (Miralax) 17 gm PO DAILYP PRN PRN Reason: Constipation Potassium Chloride (Klor-Con) 40 meq PO DAILYP PRN PRN Reason: K+ < 3.5 Senna/Docusate Sodium (Senna Plus Tablet) 1 tab PO [facility] Sitagliptin Phosphate (Januvia) 100 mg PO DAILY [facility] Last Admin: 11/23/18 09:27 Dose: Not Given Documented by: Sodium Chloride (Saline Flush) 10 ml IV Q8 [facility] Thiamine HCl (Vitamin B1) 100 mg PO DAILY [facility] Last Admin: 11/23/18 09:22 Dose: 100 mg Documented by: Trazodone HCl (Desyrel) 50 mg PO HSP PRN PRN Reason: Insomnia Warfarin Sodium (Coumadin Per Pharmacy) 1 order PO DAILY@1400 [facility] Medical - PN: A/P - Time Spent With Patient Total time spent is greater than 50% in coordination of care (as documented) at patient's floor/unit and/or counseling patient: 25 - 35 minutes (1) Heart failure with acute decompensation, type unknown Status: Acute Assessment and plan: * Septic shock-continue crystalloid/vasopressors/management per guidelines. Follow lactate/central venous oxygen sat/urine output * Multifocal pneumonia likely aspiration, aspiration precautions/ST eval/denies/robotic coverage for gram-negative/anaerobes * Hypoxic respiratory failure secondary above-continue antibiotic coverage/supplemental oxygen. * Acute change in mental status secondary sepsis endorgan dysfunction-continue sepsis management per guidelines. * Acute decompensated heart failure-responded well to diuresis however discontinued in light of shock. Await echocardiogram, optimize CHF management based on echo findings. * DM type II continue basal * History of coronary disease continue statin/isosorbide/ARB/Coumadin * Anticoagulation on Coumadin-continue dosing based on INR * Full code * Prophylaxis Coumadin, INR therapeutic Plan * Transfer to ICU, patient critically ill, Concord II score 18 * Pressors to keep map at goal * DC diuretics * Sepsis work-up * Echocardiogram * Continue CHF management based on echo findings * pre-existing well condition management home meds * PT OT nutrition support * Coumadin dosing based on INR Critical care time spent over 45 minutes Current Visit: Yes Medical - PN: Qual - VTE Deep Vein Thrombosis/Pulmonary Embolism Present on Admission: No
[2018-11-23 10:07] LABS: Appearance,Urine CLOUDY; Bacteria,Urine FEW /hpf (0); Bilirubin,Urine NEG (NEG); Color,Urine YELLOW; Culture Indicated,Urine YES; Glucose,Urine (UA) NEGATIVE (NEG); Ketones,Urine NEG (NEG); Leukocyte Esterase,Urine 75 /uL (NEG); Mucus,Urine FEW /hpf (0); Nitrate,Urine NEG (NEG); Protein,Urine >=500 mg/dL (NEG); Specific Gravity,Urine 1.017 (1.000-1.035); Urine Blood >=1.0 mg/dL (<0.03); Urine RBC > 182 /hpf (0-1); Urine Squamous Epithelial Cell 0 /hpf (0-4); Urine Transitional Epi Cells < 1 /hpf (0-2); Urine WBC 15 /hpf (0-4); Urobilinogen,Urine NEG (NEG)
[2018-11-23] MEDS: PIPERACILLIN SODIUM/TAZOBACTAM 3.375 GM in DEXTROSE 5% IN WATER 50 ML IV SCH ×3 (12:44→23:42)
[2018-11-23] MEDS: NOREPINEPHRINE BITARTRATE 8 MG in 0.9 % SODIUM CHLORIDE 242 ML IV SCH (14:28)
[2018-11-23] MEDS ORDERED: SENNOSIDES/DOCUSATE SODIUM 1 TAB TABLET PO SCH (21:00)
[2018-11-24] MEDS: NOREPINEPHRINE BITARTRATE 8 MG in 0.9 % SODIUM CHLORIDE 242 ML IV SCH (01:31)
[2018-11-24] MEDS: 0.9 % SODIUM CHLORIDE 250 ML IV SCH ×3 (04:16→15:55)
[2018-11-24] MEDS: 0.9 % SODIUM CHLORIDE 10 ML SYRINGE IV SCH ×5 (05:43→22:12)
[2018-11-24] MEDS: PIPERACILLIN SODIUM/TAZOBACTAM 3.375 GM in DEXTROSE 5% IN WATER 50 ML IV SCH ×3 (05:43→20:54)
[2018-11-24 06:35] LABS: INR 3.5 (0.9-1.1); Prothrombin Time 34.6 sec (11.9-14.5)
[2018-11-24 06:47] LABS: Hematocrit 33.4 % (41.0-55.0); Mean Cell Volume 86.5 fL (80.0-100.0); Mean Platelet Volume 8.2 fL (7.4-10.4); Platelet Count 152 K/mcL (140-440); RBC 3.85 M/mcL (4.50-5.90); Red Cell Distribution Width 16.2 % (11.5-14.5)
[2018-11-24 06:48] LABS: ALT/SGPT 18 U/l (0-40); AST/SGOT 23 U/l (0-37); Albumin 2.3 gm/dL (3.2-5.2); Albumin/Globulin Ratio 0.7 (1.0-2.3); Alkaline Phosphatase 84 U/L (39-117); Bilirubin,Direct 0.2 mg/dL (0.0-0.3); Bilirubin,Total 0.7 mg/dL (0.0-1.0); Blood Urea Nitrogen 26 mg/dl (8-23); Calcium 7.5 mg/dl (8.6-10.4); Carbon Dioxide 26 mmol/L (22-30); Chloride 104 mmol/L (96-108); Globulin 3.2 gm/dL (2.2-3.7); Glomerular Filtration Rate 34; Glucose 154 mg/dL (70-105); Lactate Dehydrogenase 256 U/L (94-250); Phosphorous 3.5 mg/dL (2.7-4.5); Triglycerides 70 mg/dl (<150); Uric Acid 6.6 mg/dL (2.5-8.0)
[2018-11-24] MEDS: DOCUSATE SODIUM 100 MG CAPSULE PO SCH ×3 (08:27→20:57)
[2018-11-24] MEDS: sitaGLIPtin 100 MG TABLET PO SCH (08:27)
[2018-11-24] MEDS: MULTIVIT,THER IRON,CA,FA & MIN 1 TABLET PO SCH (08:27)
[2018-11-24] MEDS: INSULIN LISPRO 1 UNIT/0.01 ML UNIT SQ SCH ×4 (08:27→20:55)
[2018-11-24] MEDS: FOLIC ACID 1 MG TABLET PO SCH (08:27)
[2018-11-24] MEDS: THIAMINE 100 MG TABLET PO SCH (08:28)
[2018-11-24] MEDS: CYANOCOBALAMIN (VITAMIN B-12) 500 MCG TABLET PO SCH ×2 (08:28→20:57)
[2018-11-24] MEDS ORDERED: NOREPINEPHRINE BITARTRATE 8 MG in 0.9 % SODIUM CHLORIDE 242 ML IV PRN ×2 (09:15→15:43)
[2018-11-24] MEDS ORDERED: FUROSEMIDE 20 MG/2 ML VIAL IV ONE (09:39)
[2018-11-24 09:53] LABS: Anisocytosis 1+ (NONE SEEN); Band Neutrophils % 46 % (0-10); Basophilic Stippling RARE (NONE SEEN); Eosinophils % (Manual) 1 % (0-7); Lymphocytes % 9 % (15-49); Monocytes % (Manual) 3 % (1-12); Platelet Estimate NORMAL (NORMAL); Polychromasia 1+ (NONE SEEN); RBC Morphology ABNORM (NORMAL); Segmented Neutrophils % 41 % (38-78)
--- NOTE | 2018-11-24 12:45 | Internal Med Progress Note ---
Medical - PN: Subj Patient information: Note initiated : 11/24/18 at 12:45 pm Service Date, if different from initiated Date: [] Patient: Florencio Grace a 63 y/o M admitted on 11/22/18 for Cough, congestion, pale, weak. Chief Complaint: [] Interval history: Mr. Grace is a 63 year old M with a history of chronic kidney disease/morbid obesity, diabetes,hypertension chronic right lower extremity wound status post BKA who now presents with 2 weeks onset of progressive shortness of breath, weight gain, orthopnea and generalized fatigue. Patient lives at home alone and receives help from a caregiver. He denies changes in medication but has been taking Advil over the last few days for his degenerative joint pain. He has a right BKA prosthesis and usually ambulates well. He has been keeping check on his daily weights but his normal dose of Lasix has not been effective. He denies changes in medication or missing doses. Denies fever chills or sick contacts. Denies excessive salt diet. Presents to the ER with above symptoms. Initial work-up was consistent with CHF/pleural effusion and volume overload. Patient was started on diuretics. Hospitalist service was consulted for admission. At the time of evaluation patient is accompanied with his sister therapy. He was able to answer most of the question and endorsed to history as above. He is markedly short of breath and unable to talk in full sentences. He endorses orthopnea but denies PND or bloody sputum, diarrhea, dysuria. He responded well to dose of Lasix in the ER 11/23 -patient responded well to diuretics overnight however 70s show dramatic changes around 3 this morning. Unequal pupil with left-sided facial droop. Code stroke was activated. Patient systolics dropped from 180s to 110s. Patient febrile. Sepsis work-up ordered. Started on crystalloid challenge and diuretics. Started vasopressors to keep map at goal. MRI brain/MR angiogram head neck ordered. Transfer to ICU. INR therapeutic at 3.2. Creatinine 1.6 precludes use of contrast in the setting of sepsis. Patient now hypoxic requiring 4 L of oxygen. Left lower lobe large and dense consolidation with multifocal right lower lobe infiltrates stable aspiration/pneumonia. 11/24-patient seen in room. Gradually weaned off pressors. Hemodynamics stabilized. White count elevated at 19,000. However hypoxia improved. Mentation much improved and able to hold a conversation. 46% bands on differential. Continuing Zosyn. INR 3.5. Creatinine elevated at 2 likely secondary to sepsis endorgan dysfunction. Continue monitoring and nephrology consult if further deterioration noted. Cultures negative so far. Continue broad antibiotic coverage. - Constitutional Vitals: Vital Signs Temp Pulse Resp BP Pulse Ox 97.7 F 80 29 H 128/54 97 11/24/18 07:17 11/24/18 12:02 11/24/18 12:02 11/24/18 12:02 11/24/18 12:02 Period Temp Pulse Resp BP Sys/Bush Pulse Ox Last 24 Hr 97.7 F-98.2 F 37-116 14-45 86-163/43-132 89-100 Intake and Output 11/23/18 11/24/18 11/24/18 21:59 05:59 13:59 Intake Total 573 712 651 Output Total 260 285 300 Balance 313 427 351 Weight 330 lb 14.4 oz Intake & Output: Intake & Output 11/23/18 11/24/18 11/24/18 21:59 05:59 13:59 Intake Total 573 712 651 Output Total 260 285 300 Balance 313 427 351 Weight 330 lb 14.4 oz Intake: IV 453 212 171 Sodium Chloride 0.9% 250 ml @ 250 106 20 mls/hr IV .[id number] [facility] Rx#: [id number] Levophed 8 mg In Sodium 153 162 15 Chloride 0.9% 242 ml @ 10 MCG/ MIN 18.75 mls/hr IV Q14H [facility] Rx #:[id number] Zosyn 3.375 gm In Dextrose 5% 50 50 50 in Water 50 ml @ 100 mls/hr IV Q6H [facility] Rx#:[id number] Oral 120 500 480 Output: Urine Catheter Amount 185 285 300 Void Amount 75 Other: Meal Dinner Breakfast Percent of Meal Consumed 50% 100% Feeding Ability Assist with Tray Set Up Independent Urine Appearance Clear Uretheral (Mayo) Clear Urine Color Dark Yellow Bright Yellow Uretheral (Mayo) Dark Mary Urine Odor Normal Stool Size Smear Stool Color Brown Stool Consistency Soft Loose # Bowel Movements 1 General appearance: no acute distress Exam: Much more alert and oriented Diminished breath sounds Minimally labored breathing Mayo is draining clear urine No anxiety Right BKA Medical - PN: Obj Da - Labs CBC & Chem 7: 11/24/18 03:40 11/24/18 03:40 Labs: Abnormal Lab Results 11/24/18 11/24/18 11/24/18 03:40 03:40 03:40 WBC 19.0 H RBC 3.85 L Hgb 11.0 L Hct 33.4 L RDW 16.2 H Plt Count Lymph # (Auto) Seg Neutrophils % Band Neutrophils % 46 H Lymphocytes % 9 L Platelet Estimate RBC Morphology Abnorm A Polychromasia 1+ A Basophilic Stippling Rare A Anisocytosis 1+ A PT 34.6 H INR 3.5 H APTT Sodium Chloride BUN 26 H Creatinine 2.0 H Glucose 154 H Calcium 7.5 L Lactate Dehydrogenase 256 H NT-Pro-B Natriuret Pep Total Protein 5.5 L Albumin 2.3 L Albumin/Globulin Ratio 0.7 L Urine Protein Urine Occult Blood Ur Leukocyte Esterase Urine RBC Urine WBC Urine Bacteria 11/23/18 11/23/18 11/23/18 09:10 06:00 03:40 WBC RBC Hgb Hct RDW Plt Count Lymph # (Auto) Seg Neutrophils % Band Neutrophils % Lymphocytes % Platelet Estimate RBC Morphology Polychromasia Basophilic Stippling Anisocytosis PT 32.6 H INR 3.2 H APTT 40 H Sodium 147 H Chloride BUN Creatinine 1.6 H Glucose Calcium 7.8 L Lactate Dehydrogenase 314 H NT-Pro-B Natriuret Pep Total Protein Albumin 2.8 L Albumin/Globulin Ratio 0.9 L Urine Protein >=500 A Urine Occult Blood >=1.0 A Ur Leukocyte Esterase 75 A Urine RBC > 182 H Urine WBC 15 H Urine Bacteria Few A 11/23/18 11/22/18 11/22/18 03:40 17:20 17:20 WBC RBC 4.10 L Hgb 11.4 L Hct 35.8 L RDW 16.9 H Plt Count 130 L Lymph # (Auto) Seg Neutrophils % 82 H Band Neutrophils % Lymphocytes % 11 L Platelet Estimate Decreased A RBC Morphology Abnorm A Polychromasia Few A Basophilic Stippling Anisocytosis 1+ A PT 33.4 H INR 3.3 H APTT Sodium Chloride 109 H BUN Creatinine 1.3 H Glucose Calcium 8.2 L Lactate Dehydrogenase NT-Pro-B Natriuret Pep 02427.0 H Total Protein Albumin 3.1 L Albumin/Globulin Ratio Urine Protein Urine Occult Blood Ur Leukocyte Esterase Urine RBC Urine WBC Urine Bacteria 11/22/18 17:20 WBC RBC 4.07 L Hgb 11.2 L Hct 35.3 L RDW 16.8 H Plt Count 139 L Lymph # (Auto) 1.4 L Seg Neutrophils % Band Neutrophils % Lymphocytes % Platelet Estimate RBC Morphology Polychromasia Basophilic Stippling Anisocytosis PT INR APTT Sodium Chloride BUN Creatinine Glucose Calcium Lactate Dehydrogenase NT-Pro-B Natriuret Pep Total Protein Albumin Albumin/Globulin Ratio Urine Protein Urine Occult Blood Ur Leukocyte Esterase Urine RBC Urine WBC Urine Bacteria Meds: Medications Acetaminophen (Tylenol) 650 mg PO Q4-6HP PRN PRN Reason: PAIN/FEVER > 101 Last Admin: 11/23/18 09:19 Dose: 650 mg Documented by: Albuterol/Ipratropium (Duoneb) 3 ml NEB Q4HP PRN PRN Reason: Shortness Of Breath Cyanocobalamin (Vitamin B-12) 1,000 mcg PO BID [facility] Stop: 11/27/18 09:01 Last Admin: 11/24/18 08:28 Dose: 1,000 mcg Documented by: Dextrose (Dextrose 50%) 0 ml IV UD PRN PRN Reason: Hypoglycemia Diagnostic Test (Pha) (Accu-Chek) 1 each FS ACHS [facility] Last Admin: 11/24/18 11:47 Dose: 1 each Documented by: Docusate Sodium (Colace) 100 mg PO BID [facility] Last Admin: 11/24/18 08:34 Dose: Not Given Documented by: Folic Acid (Folic Acid) 1 mg PO DAILY [facility] Last Admin: 11/24/18 08:27 Dose: 1 mg Documented by: Glucose (Insta-Glucose) 15 gm PO PRN PRN PRN Reason: Hypoglycemia Guaifenesin/Codeine Phosphate (Robitussin Ac) 10 ml PO Q4HP PRN PRN Reason: Cough Hydralazine HCl (Apresoline) 10 mg IV Q4HP PRN PRN Reason: Hypertension Magnesium Sulfate (Magnesium Sulfate) 2 gm in 50 mls @ 50 mls/hr IV UD PRN PRN Reason: MG = or < 1.7 Sodium Chloride (Sodium Chloride 0.9%) 250 mls @ 20 mls/hr IV .[id number] [facility] Last Infusion: 11/24/18 09:35 Dose: 0 mls/hr Documented by: Acetaminophen (Ofirmev) 1,000 mg in 100 mls @ 200 mls/hr IV Q6HP PRN PRN Reason: PAIN/FEVER > 101 Piperacillin Sod/Tazobactam (Sod 3.375 gm/ Dextrose) 50 mls @ 100 mls/hr IV Q6H [facility]; Protocol Last Infusion: 11/24/18 06:13 Dose: Infused Documented by: Norepinephrine Bitartrate 8 mg (/ Sodium Chloride) 250 mls @ 18.75 mls/hr IV Q24HP PRN; Protocol PRN Reason: Tachyarrhythmias Insulin Human Lispro (Humalog) 0 unit SQ ACHS [facility]; Protocol Last Admin: 11/24/18 12:20 Dose: 4 unit Documented by: Iron Carb/Multivit/Curlew/Folic Acid (Multivitamin W/Minerals) 1 tab PO DAILY [facility] Last Admin: 11/24/18 08:27 Dose: 1 tab Documented by: Magnesium Hydroxide (Milk Of Magnesia) 30 ml PO HSP PRN PRN Reason: Constipation Ondansetron HCl (Zofran) 4 mg IV Q4-6HP PRN PRN Reason: Nausea And Vomiting Polyethylene Glycol (Miralax) 17 gm PO DAILYP PRN PRN Reason: Constipation Potassium Chloride (Klor-Con) 40 meq PO DAILYP PRN PRN Reason: K+ < 3.5 Senna/Docusate Sodium (Senna Plus Tablet) 1 tab PO HS [facility] Last Admin: 11/23/18 20:50 Dose: Not Given Documented by: Sitagliptin Phosphate (Januvia) 100 mg PO DAILY [facility] Last Admin: 11/24/18 08:27 Dose: 100 mg Documented by: Sodium Chloride (Saline Flush) 10 ml IV Q8 [facility] Last Admin: 11/24/18 10:36 Dose: 10 ml Documented by: Thiamine HCl (Vitamin B1) 100 mg PO DAILY [facility] Last Admin: 11/24/18 08:28 Dose: 100 mg Documented by: Trazodone HCl (Desyrel) 50 mg PO HSP PRN PRN Reason: Insomnia Warfarin Sodium (Coumadin Per Pharmacy) 1 order PO DAILY@1400 [facility] Last Admin: 11/23/18 15:16 Dose: Not Given Documented by: Medical - PN: A/P - Time Spent With Patient Total time spent is greater than 50% in coordination of care (as documented) at patient's floor/unit and/or counseling patient: Greater than 35 minutes (Critical care time) (1) Heart failure with acute decompensation, type unknown Status: Acute Assessment and plan: * Septic shock with multiorgan dysfunction including ARF/hypoxic respiratory failure and mental status change, secondary to multifocal pneumonia-continue weaning vasopressors, i and management per guidelines. Continue Zosyn * Multifocal pneumonia likely aspiration, continue ST eval/antibiotic coverage/aspiration precautions * Hypoxic respiratory failure secondary above-clinically improved. On 2 L oxygen * Acute renal failure secondary to septic shock-creatinine 50% elevation baseline. Continue monitoring * Acute change in mental status secondary sepsis endorgan dysfunction-clinically improved * Acute decompensated heart failure NYHA class III with EF 25%. Continue diuresis/beta-medhat, restart ARB once septic shock resolved * DM type II continue sliding-scale insulin/basal/diabetic diet * History of coronary disease continue statin/Coumadin,(isosorbide and ARB on hold) * Anticoagulation on Coumadin-continue dosing based on INR * History of BPH start Flomax * Hyperlipidemia on statin * Full code * Prophylaxis Coumadin, INR therapeutic Plan * Continue to wean pressors and transfer to telemetry * Start beta-medhat * Start low-dose diuretics * Monitor renal function * pre-existing medical condition management home meds except for antihypertensives * PT OT nutrition support * Coumadin dosing based on INR Critical time spent 35 minutes for management of septic shock Current Visit: Yes Medical - PN: Qual - VTE Deep Vein Thrombosis/Pulmonary Embolism Present on Admission: No
[2018-11-24] MEDS ORDERED: MAGNESIUM HYDROXIDE 30 ML ORAL.SUSP PO PRN (15:43)
[2018-11-24] MEDS ORDERED: traZODone HCL 50 MG TABLET PO PRN (15:43)
[2018-11-24] MEDS ORDERED: POTASSIUM CHLORIDE 20 MEQ PACKET PO PRN (15:43)
[2018-11-24] MEDS ORDERED: DEXTROSE 31 GM ORAL.SUSP PO PRN (15:43)
[2018-11-24] MEDS ORDERED: ACETAMINOPHEN 325 MG TABLET PO PRN (15:43)
[2018-11-24] MEDS ORDERED: ACETAMINOPHEN 1,000 MG/100 ML BOTTLE IV PRN (15:43)
[2018-11-24] MEDS ORDERED: ONDANSETRON 4 MG/2 ML VIAL IV PRN (15:43)
[2018-11-24] MEDS ORDERED: IPRATROPIUM/ALBUTEROL 3 ML AMPUL.NEB NEB PRN (15:43)
[2018-11-24] MEDS ORDERED: DEXTROSE 50% 50 ML VIAL IV PRN (15:43)
[2018-11-24] MEDS ORDERED: guaiFENesin/CODEINE 10 ML UDC PO PRN (15:43)
[2018-11-24] MEDS ORDERED: POLYETHYLENE GLYCOL 3350 17 GM PACKET PO PRN (15:43)
[2018-11-24] MEDS ORDERED: MAGNESIUM SULFATE 2 GM/50 ML BAG IV PRN (15:43)
[2018-11-24] MEDS ORDERED: hydrALAZINE 20 MG/ML VIAL IV PRN (15:43)
[2018-11-24] MEDS ORDERED: ATORVASTATIN 20 MG TABLET PO SCH ×2 (21:00)
[2018-11-24] MEDS ORDERED: METOPROLOL SUCCINATE 50 MG TAB.XL.24H PO SCH ×2 (21:00)
[2018-11-24] MEDS ORDERED: SENNOSIDES/DOCUSATE SODIUM 1 TAB TABLET PO SCH (21:00)
[2018-11-24] MEDS ORDERED: TAMSULOSIN 0.4 MG CAPSULE PO SCH ×2 (21:00)
[2018-11-25] MEDS: PIPERACILLIN SODIUM/TAZOBACTAM 3.375 GM in DEXTROSE 5% IN WATER 50 ML IV SCH ×4 (01:15→17:47)
[2018-11-25] MEDS: 0.9 % SODIUM CHLORIDE 10 ML SYRINGE IV SCH ×5 (05:47→15:19)
[2018-11-25] MEDS: 0.9 % SODIUM CHLORIDE 250 ML IV SCH (06:37)
[2018-11-25] MEDS: INSULIN LISPRO 1 UNIT/0.01 ML UNIT SQ SCH ×4 (08:06→21:20)
[2018-11-25] MEDS ORDERED: THIAMINE 100 MG TABLET PO SCH (09:00)
[2018-11-25] MEDS ORDERED: MULTIVIT,THER IRON,CA,FA & MIN 1 TABLET PO SCH (09:00)
[2018-11-25] MEDS ORDERED: INSULIN GLARGINE, HUMAN 1 UNIT/0.01 ML SQ SCH ×2 (09:00)
[2018-11-25] MEDS ORDERED: sitaGLIPtin 100 MG TABLET PO SCH (09:00)
[2018-11-25] MEDS ORDERED: FOLIC ACID 1 MG TABLET PO SCH (09:00)
[2018-11-25] MEDS: DOCUSATE SODIUM 100 MG CAPSULE PO SCH ×2 (10:07→21:05)
[2018-11-25] MEDS ORDERED: FUROSEMIDE 20 MG/2 ML VIAL IV SCH (10:07)
[2018-11-25] MEDS: CYANOCOBALAMIN (VITAMIN B-12) 500 MCG TABLET PO SCH ×2 (10:10→21:04)
[2018-11-25 10:28] LABS: ALT/SGPT 13 U/l (0-40); AST/SGOT 18 U/l (0-37); Albumin 1.9 gm/dL (3.2-5.2); Albumin/Globulin Ratio 0.6 (1.0-2.3); Alkaline Phosphatase 85 U/L (39-117); Bilirubin,Direct < 0.2 mg/dL (0.0-0.3); Bilirubin,Total 0.4 mg/dL (0.0-1.0); Blood Urea Nitrogen 30 mg/dl (8-23); Calcium 7.6 mg/dl (8.6-10.4); Carbon Dioxide 25 mmol/L (22-30); Chloride 103 mmol/L (96-108); Globulin 3.4 gm/dL (2.2-3.7); Glomerular Filtration Rate 30; Glucose 124 mg/dL (70-105); Lactate Dehydrogenase 247 U/L (94-250); Phosphorous 2.2 mg/dL (2.7-4.5); Triglycerides 91 mg/dl (<150); Uric Acid 6.2 mg/dL (2.5-8.0)
--- NOTE | 2018-11-25 10:32 | Internal Med Progress Note ---
Medical - PN: Subj Patient information: Note initiated : 11/25/18 at 10:30 am Service Date, if different from initiated Date: [] Patient: Florencio Grace a 63 y/o M admitted on 11/22/18 for Cough, congestion, pale, weak. Chief Complaint: [] Interval history: Mr. Grace is a 63 year old M with a history of chronic kidney disease/morbid obesity, diabetes,hypertension chronic right lower extremity wound status post BKA who now presents with 2 weeks onset of progressive shortness of breath, weight gain, orthopnea and generalized fatigue. Patient lives at home alone and receives help from a caregiver. He denies changes in medication but has been taking Advil over the last few days for his degenerative joint pain. He has a right BKA prosthesis and usually ambulates well. He has been keeping check on his daily weights but his normal dose of Lasix has not been effective. He denies changes in medication or missing doses. Denies fever chills or sick contacts. Denies excessive salt diet. Presents to the ER with above symptoms. Initial work-up was consistent with CHF/pleural effusion and volume overload. Patient was started on diuretics. Hospitalist service was consulted for admission. At the time of evaluation patient is accompanied with his sister therapy. He was able to answer most of the question and endorsed to history as above. He is markedly short of breath and unable to talk in full sentences. He endorses orthopnea but denies PND or bloody sputum, diarrhea, dysuria. He responded well to dose of Lasix in the ER 11/23 -patient responded well to diuretics overnight however 70s show dramatic changes around 3 this morning. Unequal pupil with left-sided facial droop. Code stroke was activated. Patient systolics dropped from 180s to 110s. Patient febrile. Sepsis work-up ordered. Started on crystalloid challenge and diuretics. Started vasopressors to keep map at goal. MRI brain/MR angiogram head neck ordered. Transfer to ICU. INR therapeutic at 3.2. Creatinine 1.6 precludes use of contrast in the setting of sepsis. Patient now hypoxic requiring 4 L of oxygen. Left lower lobe large and dense consolidation with multifocal right lower lobe infiltrates stable aspiration/pneumonia. 11/24-patient seen in room. Gradually weaned off pressors. Hemodynamics stabilized. White count elevated at 19,000. However hypoxia improved. Mentation much improved and able to hold a conversation. 46% bands on differential. Continuing Zosyn. INR 3.5. Creatinine elevated at 2 likely secondary to sepsis endorgan dysfunction. Continue monitoring and nephrology consult if further deterioration noted. Cultures negative so far. Continue broad antibiotic coverage. 11/25-patient doing a lot better. Approximating physical therapy. Persistent left lower extremity lymphedema. However hemodynamics stabilized. Cultures no growth so far. De-escalate antibiotics in 24 hours. Likely transfer to medical floor if white count downtrending. A.m. labs remains pending at this time. Creatinine 2.2 up from a baseline of 1.3 . - Constitutional Vitals: Vital Signs Temp Pulse Resp BP Pulse Ox 97.8 F 84 28 H 145/80 91 11/25/18 06:51 11/24/18 19:18 11/25/18 06:51 11/25/18 06:51 11/25/18 06:51 Period Temp Pulse Resp BP Sys/Bush Pulse Ox Last 24 Hr 97.8 F-98.9 F 73-87 17-32 115-145/51-80 90-98 Intake and Output 11/24/18 11/25/18 11/25/18 21:59 05:59 13:59 Intake Total 610 400 170 Output Total 1070 375 Balance -460 25 170 Weight 340 lb 3.2 oz Intake & Output: Intake & Output 11/24/18 11/25/18 11/25/18 21:59 05:59 13:59 Intake Total 610 400 170 Output Total 1070 375 Balance -460 25 170 Weight 340 lb 3.2 oz Intake: IV 50 100 50 Zosyn 3.375 gm In Dextrose 5% 50 100 50 in Water 50 ml @ 100 mls/hr IV Q6H [facility] Rx#:[id number] Oral 560 300 120 Output: Urine Catheter Amount 1070 375 Other: Meal Dinner Breakfast Percent of Meal Consumed 100% 75% Feeding Ability Independent Urine Color Dark Yellow Stool Size Moderate Small Stool Color Brown Brown Stool Consistency Liquid Soft Watery Formed Loose # Bowel Movements 1 General appearance: no acute distress Exam: Right BKA prosthesis Mayo draining clear urine Alert and oriented Nonlabored breathing Denies anxiety Left lower extremity lymphedema pitting Medical - PN: Obj Da - Labs CBC & Chem 7: 11/24/18 03:40 11/25/18 06:34 Labs: Abnormal Lab Results 11/25/18 11/24/18 11/24/18 06:34 03:40 03:40 WBC RBC Hgb Hct RDW Plt Count Lymph # (Auto) Seg Neutrophils % Band Neutrophils % Lymphocytes % Platelet Estimate RBC Morphology Polychromasia Basophilic Stippling Anisocytosis PT 34.6 H INR 3.5 H APTT Sodium Chloride BUN 30 H 26 H Creatinine 2.2 H 2.0 H Glucose 124 H 154 H Calcium 7.6 L 7.5 L Phosphorus 2.2 L Lactate Dehydrogenase 256 H NT-Pro-B Natriuret Pep Total Protein 5.3 L 5.5 L Albumin 1.9 L 2.3 L Albumin/Globulin Ratio 0.6 L 0.7 L Urine Protein Urine Occult Blood Ur Leukocyte Esterase Urine RBC Urine WBC Urine Bacteria 11/24/18 11/23/18 11/23/18 03:40 09:10 06:00 WBC 19.0 H RBC 3.85 L Hgb 11.0 L Hct 33.4 L RDW 16.2 H Plt Count Lymph # (Auto) Seg Neutrophils % Band Neutrophils % 46 H Lymphocytes % 9 L Platelet Estimate RBC Morphology Abnorm A Polychromasia 1+ A Basophilic Stippling Rare A Anisocytosis 1+ A PT 32.6 H INR 3.2 H APTT 40 H Sodium Chloride BUN Creatinine Glucose Calcium Phosphorus Lactate Dehydrogenase NT-Pro-B Natriuret Pep Total Protein Albumin Albumin/Globulin Ratio Urine Protein >=500 A Urine Occult Blood >=1.0 A Ur Leukocyte Esterase 75 A Urine RBC > 182 H Urine WBC 15 H Urine Bacteria Few A 11/23/18 11/23/18 11/22/18 03:40 03:40 17:20 WBC RBC 4.10 L Hgb 11.4 L Hct 35.8 L RDW 16.9 H Plt Count 130 L Lymph # (Auto) Seg Neutrophils % 82 H Band Neutrophils % Lymphocytes % 11 L Platelet Estimate Decreased A RBC Morphology Abnorm A Polychromasia Few A Basophilic Stippling Anisocytosis 1+ A PT INR APTT Sodium 147 H Chloride 109 H BUN Creatinine 1.6 H 1.3 H Glucose Calcium 7.8 L 8.2 L Phosphorus Lactate Dehydrogenase 314 H NT-Pro-B Natriuret Pep 46542.0 H Total Protein Albumin 2.8 L 3.1 L Albumin/Globulin Ratio 0.9 L Urine Protein Urine Occult Blood Ur Leukocyte Esterase Urine RBC Urine WBC Urine Bacteria 11/22/18 11/22/18 17:20 17:20 WBC RBC 4.07 L Hgb 11.2 L Hct 35.3 L RDW 16.8 H Plt Count 139 L Lymph # (Auto) 1.4 L Seg Neutrophils % Band Neutrophils % Lymphocytes % Platelet Estimate RBC Morphology Polychromasia Basophilic Stippling Anisocytosis PT 33.4 H INR 3.3 H APTT Sodium Chloride BUN Creatinine Glucose Calcium Phosphorus Lactate Dehydrogenase NT-Pro-B Natriuret Pep Total Protein Albumin Albumin/Globulin Ratio Urine Protein Urine Occult Blood Ur Leukocyte Esterase Urine RBC Urine WBC Urine Bacteria Meds: Medications Acetaminophen (Tylenol) 650 mg PO Q4-6HP PRN PRN Reason: PAIN/FEVER > 101 Albuterol/Ipratropium (Duoneb) 3 ml NEB Q4HP PRN PRN Reason: Shortness Of Breath Atorvastatin Calcium (Lipitor) 10 mg PO HS [facility] Last Admin: 11/24/18 20:56 Dose: 10 mg Documented by: Cyanocobalamin (Vitamin B-12) 1,000 mcg PO BID [facility] Stop: 11/27/18 09:01 Last Admin: 11/25/18 10:10 Dose: 1,000 mcg Documented by: Dextrose (Dextrose 50%) 0 ml IV UD PRN PRN Reason: Hypoglycemia Diagnostic Test (Pha) (Accu-Chek) 1 each FS ACHS [facility] Last Admin: 11/25/18 07:31 Dose: 1 each Documented by: Docusate Sodium (Colace) 100 mg PO BID [facility] Last Admin: 11/25/18 10:07 Dose: Not Given Documented by: Folic Acid (Folic Acid) 1 mg PO DAILY [facility] Last Admin: 11/25/18 10:11 Dose: 1 mg Documented by: Furosemide (Lasix) 20 mg IV Q8 [facility] Last Admin: 11/25/18 10:21 Dose: 20 mg Documented by: Glucose (Insta-Glucose) 15 gm PO PRN PRN PRN Reason: Hypoglycemia Guaifenesin/Codeine Phosphate (Robitussin Ac) 10 ml PO Q4HP PRN PRN Reason: Cough Last Admin: 11/24/18 23:14 Dose: 10 ml Documented by: Hydralazine HCl (Apresoline) 10 mg IV Q4HP PRN PRN Reason: Hypertension Magnesium Sulfate (Magnesium Sulfate) 2 gm in 50 mls @ 50 mls/hr IV UD PRN PRN Reason: MG = or < 1.7 Norepinephrine Bitartrate 8 mg (/ Sodium Chloride) 250 mls @ 18.75 mls/hr IV Q24HP PRN; Protocol PRN Reason: Tachyarrhythmias Acetaminophen (Ofirmev) 1,000 mg in 100 mls @ 200 mls/hr IV Q6HP PRN PRN Reason: PAIN/FEVER > 101 Piperacillin Sod/Tazobactam (Sod 3.375 gm/ Dextrose) 50 mls @ 100 mls/hr IV Q6H [facility]; Protocol Last Infusion: 11/25/18 06:17 Dose: Infused Documented by: Insulin Glargine (Lantus) 30 unit SQ DAILY [facility] Last Admin: 11/25/18 10:10 Dose: 30 units Documented by: Insulin Human Lispro (Humalog) 0 unit SQ ACHS [facility]; Protocol Last Admin: 11/25/18 08:06 Dose: 1 units Documented by: Iron Carb/Multivit/Hills/Folic Acid (Multivitamin W/Minerals) 1 tab PO DAILY [facility] Last Admin: 11/25/18 10:11 Dose: 1 tab Documented by: Magnesium Hydroxide (Milk Of Magnesia) 30 ml PO HSP PRN PRN Reason: Constipation Metoprolol Succinate (Toprol Xl) 50 mg PO [facility] Last Admin: 11/24/18 20:57 Dose: 50 mg Documented by: Ondansetron HCl (Zofran) 4 mg IV Q4-6HP PRN PRN Reason: Nausea And Vomiting Polyethylene Glycol (Miralax) 17 gm PO DAILYP PRN PRN Reason: Constipation Potassium Chloride (Klor-Con) 40 meq PO DAILYP PRN PRN Reason: K+ < 3.5 Senna/Docusate Sodium (Senna Plus Tablet) 1 tab PO [facility] Last Admin: 11/24/18 20:57 Dose: Not Given Documented by: Sitagliptin Phosphate (Januvia) 100 mg PO DAILY [facility] Last Admin: 11/25/18 10:10 Dose: 100 mg Documented by: Sodium Chloride (Saline Flush) 10 ml IV Q8 [facility] Last Admin: 11/25/18 06:36 Dose: 10 ml Documented by: Tamsulosin HCl (Flomax) 0.4 mg PO [facility] Last Admin: 11/24/18 20:56 Dose: 0.4 mg Documented by: Thiamine HCl (Vitamin B1) 100 mg PO DAILY [facility] Last Admin: 11/25/18 10:10 Dose: 100 mg Documented by: Trazodone HCl (Desyrel) 50 mg PO HSP PRN PRN Reason: Insomnia Warfarin Sodium (Coumadin Per Pharmacy) 1 order PO UD [facility] Medical - PN: A/P - Time Spent With Patient Total time spent is greater than 50% in coordination of care (as documented) at patient's floor/unit and/or counseling patient: 25 - 35 minutes (1) Heart failure with acute decompensation, type unknown Status: Acute Assessment and plan: * Septic shock with multiorgan dysfunction including ARF/hypoxic respiratory failure and mental status change, now off pressors. Continue antibiotic coverage * Multifocal pneumonia likely aspiration, continue ST eval/antibiotic coverage/aspiration precautions * Hypoxic respiratory failure secondary above-clinically improved. On 2 L oxygen * Acute renal failure secondary to septic shock-creatinine now up from 1.3-2.2, ARB on hold * Acute change in mental status secondary sepsis endorgan dysfunction-clinically improved * Acute decompensated heart failure NYHA class III with EF 25%. Continue diuresis/beta-medhat, restart ARB once septic shock resolved * DM type II continue sliding-scale insulin/basal/diabetic diet * History of coronary disease continue statin/Coumadin,(isosorbide and ARB on hold in light of ARF) * Anticoagulation on Coumadin-continue dosing based on INR * History of BPH start Flomax * Hyperlipidemia on statin * Full code * Prophylaxis Coumadin, INR therapeutic Plan * Continue antibiotic coverage * Diuresis * ST eval/diet per ST recommendations * Monitor renal function * pre-existing medical condition management home meds except for ARB * PT OT nutrition support * Coumadin dosing based on INR Current Visit: Yes Medical - PN: Qual - VTE Deep Vein Thrombosis/Pulmonary Embolism Present on Admission: No
[2018-11-25 10:38] LABS: INR 2.2 (0.9-1.1)
[2018-11-25 10:59] LABS: Hemoglobin 9.6 g/dL (13.5-16.5); Mean Cell Volume 85.1 fL (80.0-100.0); Mean Platelet Volume 8.9 fL (7.4-10.4); Platelet Count 100 K/mcL (140-440); RBC 3.41 M/mcL (4.50-5.90); WBC 9.2 K/mcL (4.5-11.0)
[2018-11-25] MEDS ORDERED: POLYETHYLENE GLYCOL 3350 17 GM PACKET PO PRN (13:08)
[2018-11-25] MEDS ORDERED: guaiFENesin/CODEINE 10 ML UDC PO PRN (13:08)
[2018-11-25] MEDS ORDERED: MAGNESIUM SULFATE 2 GM/50 ML BAG IV PRN (13:08)
[2018-11-25] MEDS ORDERED: ONDANSETRON 4 MG/2 ML VIAL IV PRN (13:08)
[2018-11-25] MEDS ORDERED: hydrALAZINE 20 MG/ML VIAL IV PRN (13:08)
[2018-11-25] MEDS ORDERED: POTASSIUM CHLORIDE 20 MEQ PACKET PO PRN (13:08)
[2018-11-25] MEDS ORDERED: MAGNESIUM HYDROXIDE 30 ML ORAL.SUSP PO PRN (13:08)
[2018-11-25] MEDS ORDERED: ACETAMINOPHEN 325 MG TABLET PO PRN (13:08)
[2018-11-25] MEDS ORDERED: ACETAMINOPHEN 1,000 MG/100 ML BOTTLE IV PRN (13:08)
[2018-11-25] MEDS ORDERED: IPRATROPIUM/ALBUTEROL 3 ML AMPUL.NEB NEB PRN (13:08)
[2018-11-25] MEDS ORDERED: DEXTROSE 31 GM ORAL.SUSP PO PRN (13:08)
[2018-11-25] MEDS ORDERED: NOREPINEPHRINE BITARTRATE 8 MG in 0.9 % SODIUM CHLORIDE 242 ML IV PRN (13:08)
[2018-11-25] MEDS ORDERED: DEXTROSE 50% 50 ML VIAL IV PRN (13:08)
[2018-11-25 14:00] LABS: Band Neutrophils % 14 % (0-10); Eosinophils % (Manual) 1 % (0-7); Lymphocytes % 9 % (15-49); Monocytes % (Manual) 4 % (1-12); Platelet Estimate DECREASED (NORMAL); RBC Morphology NORMAL (NORMAL); Segmented Neutrophils % 72 % (38-78)
[2018-11-25] MEDS ORDERED: WARFARIN 2 MG TABLET PO ONE ×2 (14:00)
[2018-11-25] MEDS: FUROSEMIDE 20 MG/2 ML VIAL IV SCH ×2 (14:11→21:21)
[2018-11-25] MEDS ORDERED: SENNOSIDES/DOCUSATE SODIUM 1 TAB TABLET PO SCH (21:00)
[2018-11-25] MEDS ORDERED: traZODone HCL 50 MG TABLET PO PRN (21:00)
[2018-11-25] MEDS ORDERED: ATORVASTATIN 20 MG TABLET PO SCH (21:00)
[2018-11-25] MEDS ORDERED: TAMSULOSIN 0.4 MG CAPSULE PO SCH (21:00)
[2018-11-25] MEDS ORDERED: METOPROLOL SUCCINATE 50 MG TAB.XL.24H PO SCH (21:00)
[2018-11-26] MEDS: 0.9 % SODIUM CHLORIDE 10 ML SYRINGE IV SCH ×2 (00:04→05:48)
[2018-11-26] MEDS: PIPERACILLIN SODIUM/TAZOBACTAM 3.375 GM in DEXTROSE 5% IN WATER 50 ML IV SCH ×2 (00:05→05:48)
[2018-11-26] MEDS: FUROSEMIDE 20 MG/2 ML VIAL IV SCH ×2 (05:56→07:02)
[2018-11-26 06:27] LABS: Hematocrit 31.5 % (41.0-55.0); Hemoglobin 10.1 g/dL (13.5-16.5); Mean Cell Volume 87.7 fL (80.0-100.0); Mean Platelet Volume 9.2 fL (7.4-10.4); Platelet Count 125 K/mcL (140-440); RBC 3.59 M/mcL (4.50-5.90); Red Cell Distribution Width 16.4 % (11.5-14.5); WBC 8.8 K/mcL (4.5-11.0)
[2018-11-26 06:30] LABS: INR 1.7 (0.9-1.1); Prothrombin Time 20.1 sec (11.9-14.5)
[2018-11-26] MEDS: INSULIN LISPRO 1 UNIT/0.01 ML UNIT SQ SCH (07:56)
[2018-11-26 08:07] LABS: ALT/SGPT 15 U/l (0-40); AST/SGOT 26 U/l (0-37); Albumin 2.4 gm/dL (3.2-5.2); Albumin/Globulin Ratio 0.6 (1.0-2.3); Alkaline Phosphatase 98 U/L (39-117); Bilirubin,Direct < 0.2 mg/dL (0.0-0.3); Bilirubin,Total 0.5 mg/dL (0.0-1.0); Blood Urea Nitrogen 31 mg/dl (8-23); Calcium 8.1 mg/dl (8.6-10.4); Carbon Dioxide 24 mmol/L (22-30); Chloride 101 mmol/L (96-108); Globulin 3.7 gm/dL (2.2-3.7); Glomerular Filtration Rate 32; Glucose 101 mg/dL (70-105); Lactate Dehydrogenase 252 U/L (94-250); Phosphorous 2.8 mg/dL (2.7-4.5); Triglycerides 90 mg/dl (<150)
[2018-11-26 08:18] LABS: Anisocytosis 1+ (NONE SEEN); Eosinophils % (Manual) 2 % (0-7); Lymphocytes % 14 % (15-49); Monocytes % (Manual) 7 % (1-12); Platelet Estimate DECREASED (NORMAL); RBC Morphology ABNORM (NORMAL); Segmented Neutrophils % 77 % (38-78)
[2018-11-26] MEDS ORDERED: FOLIC ACID 1 MG TABLET PO SCH (09:00)
[2018-11-26] MEDS ORDERED: INSULIN GLARGINE, HUMAN 1 UNIT/0.01 ML SQ SCH (09:00)
[2018-11-26] MEDS ORDERED: THIAMINE 100 MG TABLET PO SCH (09:00)
[2018-11-26] MEDS ORDERED: MULTIVIT,THER IRON,CA,FA & MIN 1 TABLET PO SCH (09:00)
[2018-11-26] MEDS ORDERED: sitaGLIPtin 100 MG TABLET PO SCH (09:00)
[2018-11-26] MEDS: CYANOCOBALAMIN (VITAMIN B-12) 500 MCG TABLET PO SCH (09:19)
[2018-11-26] MEDS: DOCUSATE SODIUM 100 MG CAPSULE PO SCH (09:20)
--- NOTE | 2018-11-26 09:58 | Discharge Summary ---
Medical - DS: Prov Patient information: Note initiated : 11/26/18 at 9:55 am Service Date, if different from initiated Date: [] Patient: Florencio Grace 63 y/o M admitted on 11/22/18 for Cough, congestion, pale, weak. Chief Complaint: [] Date of admission: 11/22/18 21:43 Discharge date: 11/26/18 Primary care physician: Hayley Moore Consults: 11/25/18 12:51 Consult to Physician [CONS] Routine Comment: Consulting Provider: Isidro Olmos Reason For Exam: Physician to Consult Medical - DS: Meds - Discharge Medications Active and Home Medications: Home Medications Tamsulosin [Flomax] 0.4 mg PO HS 03/08/18 [History Confirmed 11/22/18 Last Taken 03/08/18 20:00] Warfarin [Coumadin] 2 mg PO DAILY 03/08/18 [History Confirmed 11/22/18 Last Taken 03/08/18 20:00] insulin glargine (U- 100) 100 unit/mL subcutaneous solution 60 unit SUB-Q DAILY unit 03/22/18 [History Confirmed 11/22/18 Last Taken Unknown] atorvastatin 10 mg tablet 10 mg PO QDAY 03/23/18 [History Confirmed 11/22/18 Last Taken Unknown] metformin 1,000 mg tablet 1,000 mg PO BID 03/23/18 [History Confirmed 11/22/18 Last Taken Unknown] spironolactone 100 mg tablet 50 mg PO QDAY 03/23/18 [History Confirmed 11/22/18 Last Taken Unknown] valsartan 320 mg tablet 320 mg PO QDAY 03/23/18 [History Confirmed 11/22/18 Last Taken Unknown] Metoprolol Succinate [Toprol Xl] 50 mg PO HS 11/22/18 [History Confirmed 11/22/18 Last Taken Unknown] Ofloxacin 1 gtt OD QID 11/22/18 [History Confirmed 11/22/18 Last Taken Unknown] Oxymetazoline [Afrin] 2 spray IRIS DAILY 11/23/18 [History Confirmed 11/23/18 Last Taken Unknown] Loperamide [Imodium] 2 mg PO Q48H PRN 11/24/18 [History Confirmed 11/24/18 Last Taken Unknown] Medical - DS: Hosp Hospital course: Discharge diagnosis * Septic shock with multiorgan dysfunction including ARF/hypoxic respiratory failure and mental status change, now off pressors since 11/24. Continue oral antibiotic for additional 3 days. Discharge home today * Multifocal pneumonia likely aspiration, clinical resolution noted. Continue diet per ST recommendations. * Hypoxic respiratory failure secondary above-clinically resolved now on room air * Acute renal failure secondary to septic shock-clinically improving. Creatinine downtrending. 1.3-2.2- >2. Follow-up PCP in 5 days. * Acute change in mental status secondary sepsis endorgan dysfunction-clinically improved * Acute decompensated heart failure NYHA class III with EF 25%. Continue diuresis/beta-medhat/ARB * DM type II -resume home medications * History of coronary disease continue statin/Coumadin, isosorbide * Anticoagulation on Coumadin-continue dosing based on INR * History of BPH start Flomax * Hyperlipidemia on statin Brief hospital course Mr. Grace is a 63 year old M with a history of chronic kidney disease/morbid obesity, diabetes,hypertension chronic right lower extremity wound status post BKA who now presents with 2 weeks onset of progressive shortness of breath, weight gain, orthopnea and generalized fatigue. Patient lives at home alone and receives help from a caregiver. He denies changes in medication but has been taking Advil over the last few days for his degenerative joint pain. He has a right BKA prosthesis and usually ambulates well. He has been keeping check on his daily weights but his normal dose of Lasix has not been effective. He denies changes in medication or missing doses. Denies fever chills or sick contacts. Denies excessive salt diet. Presents to the ER with above symptoms. Initial work-up was consistent with CHF/pleural effusion and volume overload. Patient was started on diuretics. Hospitalist service was consulted for admission. At the time of evaluation patient is accompanied with his sister therapy. He was able to answer most of the question and endorsed to history as above. He is markedly short of breath and unable to talk in full sentences. He endorses orthopnea but denies PND or bloody sputum, diarrhea, dysuria. He responded well to dose of Lasix in the ER 11/23 -patient responded well to diuretics overnight however 70s show dramatic changes around 3 this morning. Unequal pupil with left-sided facial droop. Code stroke was activated. Patient systolics dropped from 180s to 110s. Patient febrile. Sepsis work-up ordered. Started on crystalloid challenge and diuretics. Started vasopressors to keep map at goal. MRI brain/MR angiogram head neck ordered. Transfer to ICU. INR therapeutic at 3.2. Creatinine 1.6 precludes use of contrast in the setting of sepsis. Patient now hypoxic requiring 4 L of oxygen. Left lower lobe large and dense consolidation with multifocal right lower lobe infiltrates stable aspiration/pneumonia. 11/24-patient seen in room. Gradually weaned off pressors. Hemodynamics stabilized. White count elevated at 19,000. However hypoxia improved. Mentation much improved and able to hold a conversation. 46% bands on differe ntial. Continuing Zosyn. INR 3.5. Creatinine elevated at 2 likely secondary to sepsis endorgan dysfunction. Continue monitoring and nephrology consult if further deterioration noted. Cultures negative so far. Continue broad antibiotic coverage. 11/25-patient doing a lot better. Approximating physical therapy. Persistent left lower extremity lymphedema. However hemodynamics stabilized. Cultures no growth so far. De-escalate antibiotics in 24 hours. Likely transfer to medical floor if white count downtrending. A.m. labs remains pending at this time. Creatinine 2.2 up from a baseline of 1.3 . 11/26-patient doing well. No overnight events. No ambulating. Ongoing physical therapy. Tolerating diet. Afebrile. Hemodynamic stable. Continue oral antibiotic for additional 3 days. Discharging home with advice to resume prior medications/anticoagulation on Coumadin. Patient now feels at baseline and requesting discharge Discharge diagnosis: . - Time Spent with Patient Total time spent providing and/or coordinating discharge services: Greater than 30 minutes Medical - DS: Exam - Constitutional Vitals: Vital Signs Temp Pulse Resp BP BP Pulse Ox 11/26/18 07:18 97.7 F 20 169/79 95 11/26/18 03:07 97.7 F 88 26 H 145/73 92 11/25/18 23:36 97.7 F 89 20 164/75 94 11/25/18 19:10 98.6 F 80 20 140/70 96 11/25/18 12:17 159/74 11/25/18 11:59 97.0 F 32 H 95 Intake and Output 11/25/18 11/26/18 11/26/18 21:59 05:59 13:59 Intake Total 1390 50 50 Output Total 1175 575 575 Balance 215 -525 -525 Intake: IV 50 50 50 Zosyn 3.375 gm In Dextrose 5% 50 50 50 in Water 50 ml @ 100 mls/hr IV Q6H [facility] Rx#:[id number] Oral 1340 Output: Void Amount 5618 621 578 Other: Meal Dinner Percent of Meal Consumed 75% Urine Appearance Clear Urine Color Bright Yellow Urine Odor Normal Stool Size Small Moderate Stool Color Brown Brown Stool Consistency Loose Loose # Voids 1 # Bowel Movements 1 Weight 333 lb Medical - DS: Data Labs on day of discharge: Labs from last 24 hours 11/26/18 11/26/18 11/26/18 04:15 04:15 04:15 WBC 8.8 RBC 3.59 L Hgb 10.1 L Hct 31.5 L MCV 87.7 MCH 28.1 MCHC 32.0 RDW 16.4 H Plt Count 125 L MPV 9.2 Total Counted 100 Seg Neutrophils % 77 Band Neutrophils % Not Reportable Lymphocytes % 14 L Monocytes % (Manual) 7 Eosinophils % (Manual) 2 Platelet Estimate Decreased A RBC Morphology Abnorm A Anisocytosis 1+ A PT 20.1 H INR 1.7 H Sodium 143 Potassium 3.8 Chloride 101 Carbon Dioxide 24 Anion Gap 18.0 H BUN 31 H Creatinine 2.1 H GFR Calculation 32 Glucose 101 Uric Acid 6.0 Calcium 8.1 L Phosphorus 2.8 Magnesium 2.0 Total Bilirubin 0.5 Direct Bilirubin < 0.2 GGT 32 AST 26 ALT 15 Alkaline Phosphatase 98 Lactate Dehydrogenase 252 H Total Protein 6.1 Albumin 2.4 L Globulin 3.7 Albumin/Globulin Ratio 0.6 L Triglycerides 90 11/25/18 11/25/18 11/25/18 06:35 06:34 06:34 WBC 9.2 RBC 3.41 L Hgb 9.6 L Hct 29.0 L MCV 85.1 MCH 28.0 MCHC 33.0 RDW 16.0 H Plt Count 100 L MPV 8.9 Total Counted 100 Seg Neutrophils % 72 Band Neutrophils % 14 H Lymphocytes % 9 L Monocytes % (Manual) 4 Eosinophils % (Manual) 1 Platelet Estimate Decreased A RBC Morphology Normal Anisocytosis PT 24.0 H INR 2.2 H Sodium 141 Potassium 4.0 Chloride 103 Carbon Dioxide 25 Anion Gap 13.0 BUN 30 H Creatinine 2.2 H GFR Calculation 30 Glucose 124 H Uric Acid 6.2 Calcium 7.6 L Phosphorus 2.2 L Magnesium 1.9 Total Bilirubin 0.4 Direct Bilirubin < 0.2 GGT 27 AST 18 ALT 13 Alkaline Phosphatase 85 Lactate Dehydrogenase 247 Total Protein 5.3 L Albumin 1.9 L Globulin 3.4 Albumin/Globulin Ratio 0.6 L Triglycerides 91 Preliminary micro results at discharge 11/23/18 05:15 Blood Culture - Preliminary Blood 11/23/18 05:22 Blood Culture - Preliminary Blood Medical - DS: A/P - Patient/Caregiver Discharge Instructions Activity: as per physical therapy Diet: Renal/Consistent Carbs Additional Instructions: Follow primary care physician 5 to 7 days I recommend PCP to check CBC/BMP/INR in 5 to 7 days as opposed outpatient follow-up continue oral Augmentin for additional 3 days Return to ER if worsening diarrhea, shortness of breath, fever, chills noted - Problem Maintenance (1) Heart failure with acute decompensation, type unknown Status: Acute - Follow up Plan Follow up with: Hayley Moore MD [Primary Care Provider] - Disposition: Home, Self-Care Prognosis: Fair Rehab Potential: Fair I certify that the patient requires SNF services: No Overall status at discharge: patient is progressing back to baseline Medical - DS: Qual - VTE Deep Vein Thrombosis/Pulmonary Embolism Present on Admission: No
[2018-11-26] MEDS ORDERED: WARFARIN 2 MG TABLET PO ONE (14:00)
== END 2018-11-26 12:00 | disposition home or self-care (01) | DRG 871 ==
LOC: ED 16:41 → ICU 21:46 → MEDSUR 11-25 13:42
PROVIDERS: ADMIT Internal Medicine; ATTEND Internal Medicine

== ENCOUNTER 2019-01-29 13:21 | Inpatient (IN) ==
[2019-01-29] MEDS ORDERED: NITROGLYCERIN 1 GM OINT.TOP TD ONE (13:50)
[2019-01-29] MEDS ORDERED: CARVEDILOL 6.25 MG TABLET PO ONE (13:50)
--- NOTE | 2019-01-29 13:53 | Emergency Department Note ---
SOB HPI - General Chief Complaint: Shortness of Breath/Dyspnea Stated Complaint: SOB 3 days Time Seen by Provider: 01/29/19 13:39 Source: patient Mode of arrival: ambulatory - History of Present Illness Hospitalized a few weeks ago. Thought to have pneumonia. Discharged on antibiotics. He's been short of breath, worsening for the last 3 days. Appears very pale, wasn't troubled breathing amaral and the sister called the ambulance. Arrives via ambulance with O2 sats in the 90s on room air. On oxygen. Chest pain off and on last few days, increased ankle swelling. Does have a history of diabetes and obesity, history of PE as well as the past. On Coumadin MD Complaint: shortness of breath - Related Data Home Medications Medication Instructions Recorded Confirmed Tamsulosin [Flomax] 0.4 mg PO HS 03/08/18 01/29/19 Warfarin [Coumadin] 2 mg PO DAILY 03/08/18 01/29/19 insulin glargine 100) 100 unit/mL 60 unit SUB-Q DAILY unit 03/22/18 01/29/19 subcutaneous solution atorvastatin 10 mg tablet 10 mg PO QDAY 03/23/18 01/29/19 metformin 1,000 mg tablet 1,000 mg PO BID 03/23/18 01/29/19 spironolactone 100 mg tablet 50 mg PO QDAY 03/23/18 01/29/19 valsartan 320 mg tablet 320 mg PO QDAY 03/23/18 01/29/19 Metoprolol Succinate [Toprol Xl] 50 mg PO HS 11/22/18 01/29/19 Ofloxacin 1 gtt OD QID 11/22/18 01/29/19 Oxymetazoline [Afrin] 2 spray IRIS DAILY 11/23/18 01/29/19 Loperamide [Imodium] 2 mg PO Q48H PRN 11/24/18 01/29/19 Allergies Allergy/AdvReac Type Severity Reaction Status Date / Time No Known Drug Allergies Allergy Verified 01/29/19 13:26 Review of Systems Constitutional: Reports: weakness, sweats ENT ED: Denies: throat pain, dental pain Cardiovascular: Reports: chest pain, palpitations, dyspnea on exertion Respiratory: Reports: shortness of breath Gastrointestinal: Reports: diarrhea. Denies: abdominal pain, nausea Genitourinary: Denies: frequency Musculoskeletal: Reports: back pain Neurological: Reports: weakness. Denies: headache Endocrine: Reports: fatigue Hematological/Lymphatic: Denies: easy bleeding Past Medical History - Past Medical History Attestation: Yes: The following information was validated with the patient. Medical history: Reports: CAD (coronary artery disease), CHF, DM, hyperlipidemia, hypertension, peripheral artery disease, pulmonary embolus, renal disease Surgical history ED: Reports: orthopedic, other, other (right ankle surgery, bk a) Family history: Reports: non-contributory - Social History smoking status: Never smoker Alcohol use: Reports: None Drug use: Reports: none Physical Exam Limitations: no limitations General appearance: alert, anxious, in distress Head: atraumatic, normocephalic, normal inspection Eye: Present: normal appearance, PERRL, EOMI, visual mcmahan intact. Absent: conjunctival injection ENT: Present: normal exam, normal oropharynx, mucous membranes moist, TM's normal bilaterally Neck: Present: normal inspection, full ROM. Absent: tenderness Chest: Present: normal inspection, symmetric chest wall rise Respiratory: Present: respiratory distress, decreased breath sounds Cardiovascular: Present: regular rate, tachycardia Abdominal: Present: soft, normal bowel sounds. 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 Absent: motor sensory deficit Psychiatric: Present: depressed Skin: Present: warm, dry, pallor. Absent: rash Course - Reevaluation(s) Reevaluation #1: Bilateral pleural effusions noted. He is very hypoxic tachycardic as well. Markedly hypertensive as well. We are gradually giving him medications to lower his blood pressure including Nitropaste. Also he needs a diuretic. Lasix initiated. EKG consistent with poor R-wave progression, borderline intraventricular conduction delay. No acute ST segment elevation or ST segment depression. Nonspecific T-wave changes. Reevaluation #2: Blood pressure is much improved, 120s systolic, heart rate has come down with carvedilol administration. His breathing is about the same with rapid respiratory rate, slightly improved but he is on oxygen 2 l per minute and his O2 sats are still borderline with that. His labs and x-ray are consistent with congestive heart failure pro BNP elevated at 15,000, his troponin was negative. Final impression is CHF with bilateral pleural effusions. Plan is hospital admission, further care per hospitalist. Lasix 40 mg given in the ED along with blood pressure medications up. I do not think he has pneumonia, CRP is normal, his white blood cell count slightly elevated but no fever, no productive cough. No chest pain or other symptoms or signs of pneumonia. Vital Signs Temperature 99.1 F H 01/29/19 13:22 Pulse Rate 120 H 01/29/19 13:22 Respiratory Rate 24 H 01/29/19 13:22 Blood Pressure 173/123 01/29/19 13:22 Pulse Oximetry (%) 90 01/29/19 13:22 Temperature 99.1 F H 01/29/19 13:22 Pulse Rate 110 H 01/29/19 15:53 Respiratory Rate 20 01/29/19 15:53 Blood Pressure 121/70 01/29/19 15:53 Pulse Oximetry (%) 93 01/29/19 15:53 Shortness of Breath/Dyspnea - [facility] Narrative Medical decision making narrative: Impression is congestive heart failure. Discussed hospitalization with our hospitalist - Lab Data Lab results reviewed: Yes I reviewed the patient's lab results. Result diagrams: 01/29/19 13:50 01/29/19 13:50 Lab Results 01/29/19 01/29/19 01/29/19 Range/Units 13:50 13:50 13:50 WBC 12.0 H (4.5-11.0) K/mcL RBC 4.37 L (4.50-5.90) M/mcL Hgb 11.8 L (13.5-16.5) g/dL Hct 37.0 L (41.0-55.0) % MCV 84.7 (80.0-100.0) fL MCH 26.9 (26.0-34.0) pg MCHC 31.8 (31.0-36.0) g/dL RDW 17.4 H (11.5-14.5) % Plt Count 167 (140-440) K/mcL MPV 7.9 (7.4-10.4) fL Gran % 87.1 H (38.0-78.0) % Lymph % (Auto) 6.7 L (15.5-49.0) % Swain % (Auto) 5.3 (1.0-12.0) % Eos % (Auto) 0.8 (0.0-7.0) % Baso % (Auto) 0.1 (0.0-2.0) % Gran # 10.5 H (1.8-8.0) K/mcL Lymph # (Auto) 0.8 L (1.5-4.8) K/mcL Swain # (Auto) 0.6 (0.1-0.9) K/mcL Eos # (Auto) 0.1 (0.0-0.7) K/mcL Baso # (Auto) 0 (0.0-0.3) K/mcL PT 32.4 H (11.9-14.5) sec INR 3.2 H (0.9-1.1) VBG Lactic Acid (0.5-2.0) mmol/L Sodium 144 (133-145) mmol/L Potassium 3.9 (3.3-5.1) mmol/L Chloride 105 (96-108) mmol/L Carbon Dioxide 26 (22-30) mmol/L Anion Gap 13.0 (8-16) BUN 18 (8-23) mg/dl Creatinine 1.4 H (0.7-1.2) mg/dl GFR Calculation 52 Glucose 122 H (70-105) mg/dL Calcium 8.9 (8.6-10.4) mg/dl Total Bilirubin 0.5 (0.0-1.0) mg/dL AST 24 (0-37) U/l ALT 17 (0-40) U/l Alkaline Phosphatase 116 (39-117) U/L Troponin T (0-0.03) ng/ml C-Reactive Protein (0.0-0.8) mg/dl NT-Pro-B Natriuret Pep 41073.0 H (0-125) pg/ml Total Protein 7.4 (5.9-8.4) gm/dL Albumin 3.8 (3.2-5.2) gm/dL Globulin 3.6 (2.2-3.7) gm/dL Albumin/Globulin Ratio 1.1 (1.0-2.3) 01/29/19 01/29/19 01/29/19 Range/Units 13:50 13:50 13:57 WBC (4.5-11.0) K/mcL RBC (4.50-5.90) M/mcL Hgb (13.5-16.5) g/dL Hct (41.0-55.0) % MCV (80.0-100.0) fL MCH (26.0-34.0) pg MCHC (31.0-36.0) g/dL RDW (11.5-14.5) % Plt Count (140-440) K/mcL MPV (7.4-10.4) fL Gran % (38.0-78.0) % Lymph % (Auto) (15.5-49.0) % Swain % (Auto) (1.0-12.0) % Eos % (Auto) (0.0-7.0) % Baso % (Auto) (0.0-2.0) % Gran # (1.8-8.0) K/mcL Lymph # (Auto) (1.5-4.8) K/mcL Swain # (Auto) (0.1-0.9) K/mcL Eos # (Auto) (0.0-0.7) K/mcL Baso # (Auto) (0.0-0.3) K/mcL PT (11.9-14.5) sec INR (0.9-1.1) VBG Lactic Acid 1.2 (0.5-2.0) mmol/L Sodium (133-145) mmol/L Potassium (3.3-5.1) mmol/L Chloride (96-108) mmol/L Carbon Dioxide (22-30) mmol/L Anion Gap (8-16) BUN (8-23) mg/dl Creatinine (0.7-1.2) mg/dl GFR Calculation Glucose (70-105) mg/dL Calcium (8.6-10.4) mg/dl Total Bilirubin (0.0-1.0) mg/dL AST (0-37) U/l ALT (0-40) U/l Alkaline Phosphatase (39-117) U/L Troponin T < 0.01 (0-0.03) ng/ml C-Reactive Protein 0.5 (0.0-0.8) mg/dl NT-Pro-B Natriuret Pep (0-125) pg/ml Total Protein (5.9-8.4) gm/dL Albumin (3.2-5.2) gm/dL Globulin (2.2-3.7) gm/dL Albumin/Globulin Ratio (1.0-2.3) - Radiology Data Radiology results reviewed: Yes I reviewed the patient's radiology results. Disposition Pt seen by DISPUTE RESOLUTION ANALYST/PA only: No Clinical Impression: Heart failure with acute decompensation, type unknown, Heart failure, Congestive heart failure, Hypertension, Pulmonary edema Disposition: Xfer As Inpt ([facility]) Condition: Fair Instructions: Heart Failure (ED) Referrals: Hayley Moore MD [Primary Care Provider] -
[2019-01-29] MEDS ORDERED: CARVEDILOL 3.125 MG TABLET PO ONE ×2 (14:03→14:13)
--- NOTE | 2019-01-29 14:15 | XRay Report ---
CLINICAL INFORMATION: dyspnea COMPARISON: 12/29/2018 FINDINGS: Moderate cardiomegaly as increased. Mediastinum shows slight widening which is unchanged. There is moderate distention of the pulmonary vascular and mild interstitial edema throughout both lungs - a new finding. Moderate left pleural effusion and consolidated atelectasis or, less likely, infiltrate left lower lobe show slight worsening. New [id number] right pleural effusion with mild right basilar infiltrate or atelectasis IMPRESSION: Mild recurrent CHF Moderate left and smaller right pleural effusions with bibasilar airspace disease worsening. Atelectasis versus infiltrate Interpreted and Authenticated by: Elmo Youngblood 01/29/19
[2019-01-29 14:25] LABS: Basophils # (Auto) 0 K/mcL (0.0-0.3); Basophils % (Auto) 0.1 % (0.0-2.0); Eosinophils # (Auto) 0.1 K/mcL (0.0-0.7); Eosinophils % (Auto) 0.8 % (0.0-7.0); Granulocytes % (Auto) 87.1 % (38.0-78.0); Hemoglobin 11.8 g/dL (13.5-16.5); Lymphocytes # (Auto) 0.8 K/mcL (1.5-4.8); Lymphocytes % (Auto) 6.7 % (15.5-49.0); Mean Cell Volume 84.7 fL (80.0-100.0); Mean Corpuscular HGB Conc 31.8 g/dL (31.0-36.0); Mean Platelet Volume 7.9 fL (7.4-10.4); Monocytes # (Auto) 0.6 K/mcL (0.1-0.9); Monocytes % (Auto) 5.3 % (1.0-12.0); Platelet Count 167 K/mcL (140-440); RBC 4.37 M/mcL (4.50-5.90); Red Cell Distribution Width 17.4 % (11.5-14.5)
[2019-01-29 14:35] LABS: INR 3.2 (0.9-1.1); Prothrombin Time 32.4 sec (11.9-14.5)
[2019-01-29] MEDS ORDERED: FUROSEMIDE 40 MG/4 ML VIAL IV ONE (14:36)
[2019-01-29] MEDS ORDERED: ENALAPRILAT 1.25 MG/ML VIAL IV ONE (14:44)
[2019-01-29] MEDS ORDERED: ONDANSETRON 4 MG/2 ML VIAL IV ONE (14:58)
[2019-01-29 15:03] LABS: ALT/SGPT 17 U/l (0-40); AST/SGOT 24 U/l (0-37); Albumin 3.8 gm/dL (3.2-5.2); Albumin/Globulin Ratio 1.1 (1.0-2.3); Alkaline Phosphatase 116 U/L (39-117); Bilirubin,Total 0.5 mg/dL (0.0-1.0); Blood Urea Nitrogen 18 mg/dl (8-23); Calcium 8.9 mg/dl (8.6-10.4); Carbon Dioxide 26 mmol/L (22-30); Chloride 105 mmol/L (96-108); Globulin 3.6 gm/dL (2.2-3.7); Glomerular Filtration Rate 52; Glucose 122 mg/dL (70-105)
--- NOTE | 2019-01-29 16:48 | Internal Med History&Physical ---
Medical - H&P: HPI Patient information: Note initiated : 01/29/19 at 4:44 pm Service Date, if different from initiated Date: [] Patient: Florencio Grace 63 y/o M admitted on for SOB 3 days. Chief Complaint: [] History of present illness: Mr. Grace is a 63 year old M 63-year-old male presents to the ED with shortness of breath for 3 days. He had a chest CT on the which showed a large left effusion was scheduled for thoracentesis on Thursday but patient states he cannot wait. Patient states about 3 days ago he noticed shortness of breath sitting down from walking. It waxed and waned but is the most part progressed. He has a chronic cough but his cough is been more productive of white clear sputum lately. He sleeps in a recliner. Is been doing this for the past few months. Otherwise he gets short of breath if he lays on his back in his bed. He does report a 3 pound weight gain over the past week and has noticed increased swelling in his leg. He has missed taking each of his diuretics 4-5 times in the past couple weeks and states this is related to appointments as he does not have frequent urination while out about. He does not follow with cardiology or nephrology. He is scheduled for a sleep study evaluation on February. He was last admitted to the hospital in early November for septic shock and aspiration pneumonia. With acute renal failure decompensated heart failure. He states his systolic blood pressure at home typically runs 150 occasionally be up to 190 but that is rare. Occasionally has a sharp chest pain lasting 5 seconds and goes away on its own. Denies fever chills. In the ED is found to be hypertensive with initial blood pressure 173/123, tachycardic. He was given Lasix as well as Nitropaste and Coreg which brought blood pressure down. He states he is urinated several times. States he is breathing better. He had a lactate which is within normal limits and a troponin which is negative as well as a CRP. Chest clear with CHF. Review of Systems: Pertinent positives as above. Denies headache/fever/chills/nausea/vomiting/abd ominal pain/diarrhea. Remaining 10 point review of system reviewed negative Medical - H&P: PMH Medical history: Medical History (Last Reviewed 12/25/18 @ 10:24 by Mary Aviles PA-C) CKD (chronic kidney disease) (Chronic) Anemia (Chronic) Pulmonary embolism (Chronic) Heart failure (Chronic) Hypertension (Chronic) Diabetes (Chronic) Colon cancer (Chronic) SOB (shortness of breath) (Chronic) Ankle fracture (Chronic) Past Surgical History (Last Reviewed 12/25/18 @ 10:24 by Mary Aviles PA-C) History of total replacement of right ankle (Chronic) History of orthopedic surgery (Chronic) History of open reduction and internal fixation (ORIF) procedure (Chronic) History of partial colectomy (Chronic) Family History (Last Reviewed 12/25/18 @ 10:24 by Mary Aviles PA-C) Mother Bruising Bleeding Clotting disorder Father Prostate cancer Social History (Last Updated 12/25/18 @ 11:43 by Mary Aviles PA-C) 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 Denies drug use Medical - H&P: Meds Home Medications Medication Instructions Recorded Confirmed Type Tamsulosin [Flomax] 0.4 mg PO HS 03/08/18 01/29/19 History Warfarin [Coumadin] 2 mg PO DAILY 03/08/18 01/29/19 History insulin glargine 100) 100 unit/mL 60 unit SUB-Q DAILY unit 03/22/18 01/29/19 History subcutaneous solution atorvastatin 10 mg tablet 10 mg PO QDAY 03/23/18 01/29/19 History metformin 1,000 mg tablet 1,000 mg PO BID 03/23/18 01/29/19 History spironolactone 100 mg tablet 50 mg PO QDAY 03/23/18 01/29/19 History valsartan 320 mg tablet 320 mg PO QDAY 03/23/18 01/29/19 History Metoprolol Succinate [Toprol Xl] 50 mg PO HS 11/22/18 01/29/19 History Ofloxacin 1 gtt OD QID 11/22/18 01/29/19 History Oxymetazoline [Afrin] 2 spray IRIS DAILY 11/23/18 01/29/19 History Loperamide [Imodium] 2 mg PO Q48H PRN 11/24/18 01/29/19 History Allergies Allergy/AdvReac Type Severity Reaction Status Date / Time No Known Drug Allergies Allergy Verified 01/29/19 13:26 Medical - H&P: Exam - Constitutional Vitals: Temp Pulse Resp BP Pulse Ox 99.1 F H 110 H 20 121/70 88 L 01/29/19 13:22 01/29/19 15:53 01/29/19 15:53 01/29/19 15:53 01/29/19 16:37 Exam: General: Alert, Awake, No acute Distress, obese Eyes/N/T: EOMI, PEERL, Head/Neck: neck supple, normocephalic atraumatic, unable to assess for JVD given neck girth and adipose CV: RRR, No murmurs, normal s1/s2 Pulm: Diminished bilaterally, no wheezing clear Abd: soft, nontender, +BS x4 Ext: no clubbing/cyanosis. Right BKA, LLE 2-3+ edema Neuro: Alert, no focal deficits, moves all extremities, CN 2-12 grossly intact, symmetrical strength upper, sensations intact Skin: warm/dry Medical - H&P: Reslt - Labs CBC & Chem 7: 01/29/19 13:50 01/29/19 13:50 Labs: Short CBC 01/29/19 Range/Units 13:50 WBC 12.0 H (4.5-11.0) K/mcL Hgb 11.8 L (13.5-16.5) g/dL Hct 37.0 L (41.0-55.0) % Plt Count 167 (140-440) K/mcL BMP 01/29/19 13:50 Sodium 144 Potassium 3.9 Chloride 105 Carbon Dioxide 26 BUN 18 Creatinine 1.4 H Glucose 122 H Calcium 8.9 Cardiac Enzymes 01/29/19 Range/Units 13:50 Troponin T < 0.01 (0-0.03) ng/ml Liver Function 01/29/19 Range/Units 13:50 Total Bilirubin 0.5 (0.0-1.0) mg/dL AST 24 (0-37) U/l ALT 17 (0-40) U/l Alkaline Phosphatase 116 (39-117) U/L Albumin 3.8 (3.2-5.2) gm/dL - Impressions Chest x-ray with pulmonary edema and effusions Medical - H&P: A/P - Narrative A/P Narrative: A: *Acute on chronic systolic(25%)/diastolic(II) CHF -has missed dosing of his diuretics past several weeks *Pulmonary edema and pleural effusion: *HTN Urgency/emergency: *Morbid obesity: *Suspect MITCHELL: has sleep study ordered in February *DM/retinopathy: On Lantus and metformin *h/o PE: On warfarin *CKD III: *Anemia, chronic: * P: -IV bumex, cont home aldactone -may benefit from digoxin therapy, but would need to be monitored closely given CKD -Thoracentesis -nitropaste -i/os, weights -cont BB/ARB, prn IV meds - -Basal insulin & SSI -BRYAN/MAYELA wraos -cont flomax -pt/ot -Referral to see cardiology outpt -ppx: Warfarin per pharmacy DNR
[2019-01-29] MEDS ORDERED: hydrALAZINE 20 MG/ML VIAL IV PRN ×3 (16:52→17:24)
[2019-01-29] MEDS ORDERED: ACETAMINOPHEN 325 MG TABLET PO PRN (17:24)
[2019-01-29] MEDS ORDERED: POLYETHYLENE GLYCOL 3350 17 GM PACKET PO PRN (17:24)
[2019-01-29] MEDS ORDERED: POTASSIUM CHLORIDE 40 MEQ in DEXTROSE 5% IN WATER 500 ML IV PRN (17:24)
[2019-01-29] MEDS ORDERED: ONDANSETRON 4 MG/2 ML VIAL IV PRN (17:24)
[2019-01-29] MEDS ORDERED: DEXTROSE 50% 50 ML VIAL IV PRN (17:24)
[2019-01-29] MEDS ORDERED: POTASSIUM CHLORIDE 20 MEQ TABLET PO PRN ×2 (17:24)
[2019-01-29] MEDS ORDERED: DEXTROSE 31 GM ORAL.SUSP PO PRN (17:24)
[2019-01-29] MEDS ORDERED: METOPROLOL TARTRATE 5 MG/5 ML VIAL IV PRN (17:24)
[2019-01-29] MEDS ORDERED: PROMETHAZINE 25 MG TABLET PO PRN (17:24)
[2019-01-29] MEDS ORDERED: SENNOSIDES 1 TABLET PO PRN (17:24)
[2019-01-29] MEDS ORDERED: IPRATROPIUM/ALBUTEROL 3 ML AMPUL.NEB NEB PRN (17:24)
[2019-01-29] MEDS ORDERED: MAGNESIUM SULFATE 2 GM/50 ML BAG IV PRN (17:24)
[2019-01-29] MEDS ORDERED: ENALAPRILAT 1.25 MG/ML VIAL IV PRN (17:24)
[2019-01-29 17:57] LABS: Anisocytosis 1+ (NONE SEEN); Band Neutrophils % 6 % (0-10); Eosinophils % (Manual) 1 % (0-7); Lymphocytes % 12 % (15-49); Monocytes % (Manual) 8 % (1-12); Platelet Estimate NORMAL (NORMAL); RBC Morphology ABNORMAL (NORMAL); Reactive Lymphocytes 2 % (0-2); Segmented Neutrophils % 71 % (38-78)
[2019-01-29] MEDS: INSULIN LISPRO 1 UNIT/0.01 ML UNIT SQ SCH ×2 (18:17→20:56)
[2019-01-29] MEDS: METOPROLOL SUCCINATE 50 MG TAB.XL.24H PO SCH (20:54)
[2019-01-29] MEDS: DOCUSATE SODIUM 100 MG CAPSULE PO SCH ×2 (20:54→21:11)
[2019-01-29] MEDS: TAMSULOSIN 0.4 MG CAPSULE PO SCH (20:54)
[2019-01-29] MEDS: LACTOBACILLUS 1 CAPSULE PO SCH (20:54)
[2019-01-29] MEDS: ATORVASTATIN 20 MG TABLET PO SCH (20:54)
[2019-01-29] MEDS ORDERED: BUMETANIDE 0.25 MG/ML VIAL IV SCH (21:00)
[2019-01-29] MEDS: 0.9 % SODIUM CHLORIDE 10 ML SYRINGE IV SCH (23:11)
[2019-01-30 05:17] LABS: Basophils # (Auto) 0 K/mcL (0.0-0.3); Basophils % (Auto) 0 % (0.0-2.0); Eosinophils # (Auto) 0 K/mcL (0.0-0.7); Eosinophils % (Auto) 0 % (0.0-7.0); Granulocytes % (Auto) 88.5 % (38.0-78.0); Hematocrit 28.3 % (41.0-55.0); Hemoglobin 9.2 g/dL (13.5-16.5); Lymphocytes # (Auto) 0.8 K/mcL (1.5-4.8); Mean Cell Volume 85.4 fL (80.0-100.0); Mean Corpuscular HGB Conc 32.3 g/dL (31.0-36.0); Mean Platelet Volume 8.1 fL (7.4-10.4); Monocytes # (Auto) 0.8 K/mcL (0.1-0.9); Monocytes % (Auto) 5.5 % (1.0-12.0); Platelet Count 118 K/mcL (140-440); RBC 3.32 M/mcL (4.50-5.90); Red Cell Distribution Width 17.3 % (11.5-14.5); WBC 14.1 K/mcL (4.5-11.0)
[2019-01-30 05:23] LABS: INR 3.5 (0.9-1.1); Prothrombin Time 34.7 sec (11.9-14.5)
[2019-01-30 05:30] LABS: ALT/SGPT 13 U/l (0-40); AST/SGOT 18 U/l (0-37); Albumin 2.7 gm/dL (3.2-5.2); Albumin/Globulin Ratio 0.9 (1.0-2.3); Alkaline Phosphatase 76 U/L (39-117); Bilirubin,Direct 0.2 mg/dL (0.0-0.3); Bilirubin,Total 0.6 mg/dL (0.0-1.0); Blood Urea Nitrogen 25 mg/dl (8-23); Calcium 8.2 mg/dl (8.6-10.4); Carbon Dioxide 27 mmol/L (22-30); Chloride 108 mmol/L (96-108); Globulin 2.9 gm/dL (2.2-3.7); Glomerular Filtration Rate 32; Glucose 97 mg/dL (70-105); Lactate Dehydrogenase 209 U/L (94-250); Phosphorous 4.9 mg/dL (2.7-4.5); Triglycerides 58 mg/dl (<150); Uric Acid 7.2 mg/dL (2.5-8.0)
[2019-01-30] MEDS: 0.9 % SODIUM CHLORIDE 10 ML SYRINGE IV SCH ×3 (05:55→21:21)
[2019-01-30] MEDS: INSULIN LISPRO 1 UNIT/0.01 ML UNIT SQ SCH ×4 (07:47→21:36)
[2019-01-30] MEDS: OFLOXACIN OD SCH ×4 (07:48→16:45)
--- NOTE | 2019-01-30 07:50 | XRay Report ---
CLINICAL INFORMATION: f/u chf/effusion COMPARISON: 01/29/2019 FINDINGS: Moderate cardiomegaly is unchanged. Mediastinum is unremarkable. The pulmonary vessels have returned to normal in caliber. No interstitial edema. Moderate/large left pleural effusion is unchanged. Densely consolidated atelectasis/infiltrate left lower lobe (retrocardiac region) is unchanged. Right basilar airspace disease nearly resolved with minimal residual. Small left pleural effusion IMPRESSION: Moderate/large left pleural effusion and dense consolidation left lower lobe atelectasis unchanged Interval resolution in CHF Improvement in right basilar atelectasis/infiltrate with minimal residual Interpreted and Authenticated by: Elmo Youngblood 01/30/19
--- NOTE | 2019-01-30 08:24 | Internal Med Progress Note ---
Medical - PN: Subj Patient information: Note initiated : 01/30/19 at 8:14 am Service Date, if different from initiated Date: [] Patient: Florencio Grace 63 y/o M admitted on 01/29/19 for SOB 3 days. Chief Complaint: [] Interval history: Mr. Grace is a 63 year old M 63-year-old male presents to the ED with shortness of breath for 3 days. He had a chest CT on the which showed a large left effusion was scheduled for thoracentesis on Thursday but patient states he cannot wait. Patient states about 3 days ago he noticed shortness of breath sitting down from walking. It waxed and waned but is the most part progressed. He has a chronic cough but his cough is been more productive of white clear sputum lately. He sleeps in a recliner. Is been doing this for the past few months. Otherwise he gets short of breath if he lays on his back in his bed. He does report a 3 pound weight gain over the past week and has noticed increased swelling in his leg. He has missed taking each of his diuretics 4-5 times in the past couple weeks and states this is related to appointments as he does not have frequent urination while out about. He does not follow with cardiology or nephrology. He is scheduled for a sleep study evaluation on February. He was last admitted to the hospital in early November for septic shock and aspiration pneumonia. With acute renal failure decompensated heart failure. He states his systolic blood pressure at home typically runs 150 occasionally be up to 190 but that is rare. Occasionally has a sharp chest pain lasting 5 seconds and goes away on its own. Denies fever chills. In the ED is found to be hypertensive with initial blood pressure 173/123, tachycardic. He was given Lasix as well as Nitropaste and Coreg which brought blood pressure down. He states he is urinated several times. States he is breathing better. He had a lactate which is within normal limits and a troponin which is negative as well as a CRP. Chest clear with CHF. 01/30 Slept okay. Still shortness of breath but feels it has improved from yesterday. has productive cough of clear/pink sputum. had N/V after breakfast. Review of Systems: denies headache/fever/chills/chest or abdominal pain/diarrhea. Otherwise see above. - Constitutional Vitals: Vital Signs Temp Pulse Resp BP Pulse Ox 99.9 F H 85 18 116/57 95 01/30/19 07:56 01/29/19 19:01 01/30/19 04:20 01/30/19 07:15 01/30/19 04:20 Period Temp Pulse Resp BP Sys/Bush Pulse Ox Last 24 Hr 97.8 F-99.9 F 81-132 18-46 104-202/49-172 83-97 Intake and Output 01/29/19 01/30/19 01/30/19 21:59 05:59 13:59 Intake Total 480 0 Output Total 129 450 Balance -129 30 0 Weight 144.106 kg Intake & Output: Intake & Output 01/29/19 01/30/19 01/30/19 21:59 05:59 13:59 Intake Total 480 0 Output Total 129 450 Balance -129 30 0 Weight 144.106 kg Intake: Oral 480 0 Output: Urine Catheter Amount 450 Void Amount 129 Other: Meal Dinner Percent of Meal Consumed 100% Urine Appearance Clear Uretheral (Mayo) Clear Urine Color Bright Yellow Uretheral (Mayo) Pale Urine Odor Normal Exam: General: Alert, Awake, No acute Distress, obese Eyes/N/T: EOMI, Head/Neck: neck supple, unable to assess for JVD given neck girth and adipose CV: RRR, No murmurs, normal s1/s2 Pulm: Diminished at bases, no wheezing clear Abd: soft, nontender, +BS x4 Ext: no clubbing/cyanosis. Right BKA, LLE 2-3+ edema Neuro: Alert, no focal deficits, moves all extremities, Skin: warm/dry Medical - PN: Obj Da - Labs CBC & Chem 7: 01/30/19 04:05 01/30/19 04:05 Labs: Abnormal Lab Results 01/30/19 01/30/19 01/30/19 04:05 04:05 04:05 WBC 14.1 H RBC 3.32 L Hgb 9.2 L Hct 28.3 L RDW 17.3 H Plt Count 118 L Gran % 88.5 H Lymph % (Auto) 6.0 L Gran # 12.5 H Lymph # (Auto) 0.8 L Lymphocytes % Anisocytosis PT 34.7 H INR 3.5 H BUN 25 H Creatinine 2.1 H Glucose Calcium 8.2 L Phosphorus 4.9 H NT-Pro-B Natriuret Pep Total Protein 5.6 L Albumin 2.7 L Albumin/Globulin Ratio 0.9 L 01/29/19 01/29/19 01/29/19 13:50 13:50 13:50 WBC RBC Hgb Hct RDW Plt Count Gran % Lymph % (Auto) Gran # Lymph # (Auto) Lymphocytes % 12 L Anisocytosis 1+ A PT 32.4 H INR 3.2 H BUN Creatinine 1.4 H Glucose 122 H Calcium Phosphorus NT-Pro-B Natriuret Pep 22334.0 H Total Protein Albumin Albumin/Globulin Ratio 01/29/19 13:50 WBC 12.0 H RBC 4.37 L Hgb 11.8 L Hct 37.0 L RDW 17.4 H Plt Count Gran % 87.1 H Lymph % (Auto) 6.7 L Gran # 10.5 H Lymph # (Auto) 0.8 L Lymphocytes % Anisocytosis PT INR BUN Creatinine Glucose Calcium Phosphorus NT-Pro-B Natriuret Pep Total Protein Albumin Albumin/Globulin Ratio Meds: Medications Acetaminophen (Tylenol) 650 mg PO Q6HP PRN PRN Reason: PAIN/FEVER > 101 Albuterol/Ipratropium (Duoneb) 3 ml NEB Q4HP PRN PRN Reason: Shortness Of Breath Atorvastatin Calcium (Lipitor) 10 mg PO HS [facility] Last Admin: 01/29/19 20:54 Dose: 10 mg Documented by: Bumetanide (Bumex) 1 mg IV BID [facility] Stop: 01/30/19 09:01 Last Admin: 01/29/19 21:01 Dose: 1 mg Documented by: Dextrose (Dextrose 50%) 0 ml IV UD PRN PRN Reason: Hypoglycemia Diagnostic Test (Pha) (Accu-Chek) 1 each FS ACHS [facility] Last Admin: 01/30/19 07:47 Dose: 1 each Documented by: Docusate Sodium (Colace) 100 mg PO BID [facility] Last Admin: 01/29/19 21:11 Dose: Not Given Documented by: Enalaprilat (Vasotec) 0 mg IV Q2HP PRN PRN Reason: Hypertension Glucose (Insta-Glucose) 15 gm PO PRN PRN PRN Reason: Hypoglycemia Hydralazine HCl (Apresoline) 0 mg IV Q2HP PRN PRN Reason: Hypertension Hydralazine HCl (Apresoline) 0 mg IV Q2HP PRN PRN Reason: Hypertension Potassium Chloride 40 meq/ (Dextrose) 520 mls @ 130 mls/hr IV UD PRN PRN Reason: Potassium < 3 Magnesium Sulfate (Magnesium Sulfate) 2 gm in 50 mls @ 50 mls/hr IV UD PRN PRN Reason: Magnesium </= 1.6 Insulin Glargine (Lantus) 60 unit SQ DAILY [facility] Insulin Human Lispro (Humalog) 0 unit SQ ACHS [facility]; Protocol Last Admin: 01/30/19 07:47 Dose: Not Given Documented by: Lactobacillus Rhamnosus (Culturelle) 1 cap PO BID [facility] Last Admin: 01/29/19 20:54 Dose: 1 cap Documented by: Metoprolol Succinate (Toprol Xl) 50 mg PO HS [facility] Last Admin: 01/29/19 20:54 Dose: 50 mg Documented by: Metoprolol Tartrate (Lopressor) 5 mg IV Q2HP PRN PRN Reason: Tachyarrhythmias HR>110 Olmesartan (Benicar) 40 mg PO DAILY [facility] Ondansetron HCl (Zofran) 4 mg IV Q4HP PRN PRN Reason: Nausea And Vomiting Ofloxacin Eye Drops 1 dose OD QID [facility] Last Admin: 01/30/19 07:49 Dose: Not Given Documented by: Polyethylene Glycol (Miralax) 17 gm PO DAILYP PRN PRN Reason: Constipation Potassium Chloride (Kdur) 40 meq PO UD PRN PRN Reason: Potssium is 3-3.5 Potassium Chloride (Kdur) 40 meq PO UD PRN PRN Reason: Potassium < 3 Promethazine HCl (Phenergan) 0 mg PO Q6HP PRN PRN Reason: Nausea And Vomiting Senna (Senokot) 2 tab PO HSP PRN PRN Reason: Constipation Sodium Chloride (Saline Flush) 10 ml IV Q8 [facility] Last Admin: 01/30/19 05:55 Dose: 10 ml Documented by: Spironolactone (Aldactone) 50 mg PO DAILY [facility] Tamsulosin HCl (Flomax) 0.4 mg PO HS [facility] Last Admin: 01/29/19 20:54 Dose: 0.4 mg Documented by: Warfarin Sodium (Coumadin Per Pharmacy) 1 order PO DAILY@1400 [facility] Medical - PN: A/P - Time Spent With Patient Total time spent is greater than 50% in coordination of care (as documented) at patient's floor/unit and/or counseling patient: - Narrative A/P Narrative: A: *Acute on chronic systolic(25%)/diastolic(II) CHF -has missed dosing of his diuretics past several weeks -f/u CXR much improved *Pulmonary edema and large left pleural effusion, compressive Atelectasis: -thoracentesis (01/30) of cc *Acute Hypoxic Resp failure: 2/2 above -on 3L NC *Leukocytosis: PCT/CRP low, no bandemia, afebrile *HTN Urgency/emergency: resolved -home meds toprol/valsartan *Morbid obesity: *Suspect MITCHELL: has sleep study ordered in February *DM/retinopathy: On Lantus and metformin *h/o PE: On warfarin *CKD III: cr 1.4>2.1 *Anemia, chronic: * P: -IV bumex and home aldactone, hold for now until Nephro consult -may benefit from digoxin therapy, but would need to be monitored closely given CKD - -i/os, weights -cont BB, hold ARB for possible JERMAN, prn IV meds -Basal insulin & SSI -BRYAN/MAYELA wraps to LLE -cont flomax -pt/ot -Referral to see cardiology outpt and f/u with nephrology -ppx: Warfarin per pharmacy (holding warfarin for now as is supratherapeutic) DNR
--- NOTE | 2019-01-30 08:56 | XRay Report ---
CLINICAL INFORMATION: post thora COMPARISON: 01/30/2019 0735 hours FINDINGS: Following left thoracentesis, there is only a small residual left pleural effusion. There is no pneumothorax or other complication. Left lower lobe is better aerated with incomplete resolution of atelectasis. Moderate hiatal hernia seen as before. Heart is mildly enlarged and stable. Mediastinum and pulmonary vessels are normal. Minor right basilar atelectasis noted. IMPRESSION: Following left thoracentesis, small residual left pleural effusion remains. No pneumothorax or other complication. Left lower lobe is better aerated with partial resolution atelectasis. Interpreted and Authenticated by: Elmo Youngblood 01/30/19
[2019-01-30] MEDS ORDERED: SPIRONOLACTONE 25 MG TABLET PO SCH (09:00)
[2019-01-30] MEDS ORDERED: OLMESARTAN MEDOXOMIL 20 MG TABLET PO SCH (09:00)
[2019-01-30] MEDS: INSULIN GLARGINE, HUMAN 1 UNIT/0.01 ML SQ SCH (09:21)
[2019-01-30] MEDS: DOCUSATE SODIUM 100 MG CAPSULE PO SCH ×3 (09:22→21:36)
[2019-01-30] MEDS: LACTOBACILLUS 1 CAPSULE PO SCH ×2 (09:22→21:20)
[2019-01-30 10:55] LABS: Anisocytosis 1+ (NONE SEEN); Band Neutrophils % 29 % (0-10); Hypochromasia 1+ (NONE SEEN); Lymphocytes % 4 % (15-49); Metamyelocytes % 1 % (0-0); Monocytes % (Manual) 4 % (1-12); Platelet Estimate DECREASED (NORMAL); Polychromasia 1+ (NONE SEEN); RBC Morphology ABNORM (NORMAL); Segmented Neutrophils % 62 % (38-78)
[2019-01-30 10:55] LABS: Glucose,Pleural Fluid 31 mg/dL; LDH,Pleural Fluid 152 U/L; Lymphocytes,Pleural Fluid 3 %; Monocytes,Pleural Fluid 3 %; Neutrophils,Pleural Fluid 94 %; pH,Body Fluid 7.33
[2019-01-30 10:56] LABS: Appearance,Pleural Fluid CLOUDY; Color,Pleural Fluid AMBER; Nucleated Cells,Pleural Fld 10986 /cumm; RBC,Pleural Fluid < 50000 /cumm
--- NOTE | 2019-01-30 11:26 | Nephrology History & Physical ---
History of Present Illness Patient information: Note initiated : 01/30/19 at 11:25 am Service Date, if different from initiated Date: [] Patient: Florencio Grace 63 y/o M admitted on 01/29/19 for SOB 3 days. Chief Complaint: [] Chief complaint: JERMAN on CKD HPI: Mr. Grace is a 63 year old M with type 2 diabetes complicated by retinopathy, osteomyelitis status post right BKA, obesity, hypertension, cardiomyopathy with left ventricular ejection fraction 25%, grade 2 diastolic dysfunction, history of PE on oral anticoagulation, colon cancer, CKD stage III with baseline creatinine 1.5, presented with shortness of breath. He was noted to have a moderate to large left pleural effusion status post 1 L thoracentesis 01/30/2019. He says that his shortness of breath improved to some extent, but is not yet at his baseline. He is not taking his diuretic consistently. Was given furosemide 40 mg IV 01/29/2019 and bumetanide 1 mg the same day. Documented urine output was 450 cc. Denies recent NSAID use, vomiting, diarrhea. Says he has bilateral lower extremity edema is at baseline. Review of Systems Constitutional: as per HPI, no fever(s) Cardiovascular: edema Respiratory: cough Gastrointestinal: no abdominal pain, no diarrhea, no nausea, no vomiting Genitourinary: no difficulty urinating Neurological: no confusion Past History Past medical history: Medical History (Last Reviewed 01/30/19 @ 12:49 by Joanna Manzo MD) CKD (chronic kidney disease) (Chronic) Anemia (Chronic) Pulmonary embolism (Chronic) Heart failure (Chronic) Hypertension (Chronic) Diabetes (Chronic) Colon cancer (Chronic) SOB (shortness of breath) (Chronic) Ankle fracture (Chronic) Pleural effusion (Acute) Past surgical history: Past Surgical History (Last Reviewed 01/30/19 @ 12:49 by Joanna Manzo MD) History of total replacement of right ankle (Chronic) History of orthopedic surgery (Chronic) Hx of right BKA (Acute) History of open reduction and internal fixation (ORIF) procedure (Chronic) History of partial colectomy (Chronic) Past family history: Family History (Last Reviewed 01/30/19 @ 12:49 by Joanna Manzo MD) Mother Bruising Bleeding Clotting disorder Father Prostate cancer Past social history: Denies current: alcohol tobacco or illicit drug use Medications and Allergies Home Medications Medication Instructions Recorded Confirmed Type Tamsulosin [Flomax] 0.4 mg PO HS 03/08/18 01/29/19 History Warfarin [Coumadin] 2 mg PO DAILY 03/08/18 01/29/19 History insulin glargine 100) 100 unit/mL 60 unit SUB-Q DAILY unit 03/22/18 01/29/19 History subcutaneous solution atorvastatin 10 mg tablet 10 mg PO QDAY 03/23/18 01/29/19 History metformin 1,000 mg tablet 1,000 mg PO BID 03/23/18 01/29/19 History spironolactone 100 mg tablet 50 mg PO QDAY 03/23/18 01/29/19 History valsartan 320 mg tablet 320 mg PO QDAY 03/23/18 01/29/19 History Metoprolol Succinate [Toprol Xl] 50 mg PO HS 11/22/18 01/29/19 History Ofloxacin 1 gtt OD QID 11/22/18 01/29/19 History Oxymetazoline [Afrin] 2 spray IRIS DAILY 11/23/18 01/29/19 History Loperamide [Imodium] 2 mg PO Q48H PRN 11/24/18 01/29/19 History Allergies Allergy/AdvReac Type Severity Reaction Status Date / Time No Known Drug Allergies Allergy Verified 01/29/19 13:26 Exam - Vital Signs Vital signs: Temp Pulse Resp BP Pulse Ox 36.8 C 70 18 118/58 97 01/30/19 09:37 01/30/19 11:22 01/30/19 04:20 01/30/19 10:56 01/30/19 11:22 - General Appearance General appearance: obese Exam Narrative: Vital signs reviewed HEENT normocephalic, atraumatic, nonicteric sclera. Neck Short and wide Chest nonlabored respirations, 2 L nasal cannula with good saturations, symmetric chest expansion's, clear to auscultation bilaterally, decreased air entry throughout secondary to body habitus Cardiovascular regular rate and rhythm, no rub, positive peripheral pulses Extremities right BKA, left lower extremity edema to upper thigh Abdomen soft, nontender, obese, no abdominal wall edema Neuro alert, clear speech Skin is warm and dry +Mayo Gastrointestinal: no tenderness, no guarding Results - Lab Results 01/30/19 04:05 01/30/19 04:05 Most recent lab results Calcium 8.2 mg/dl (8.6-10.4) L 01/30/19 04:05 Phosphorus 4.9 mg/dL (2.7-4.5) H 01/30/19 04:05 Magnesium 1.8 mg/dL (1.6-2.5) 01/30/19 04:05 Assessment and Plan (1) JERMAN (acute kidney injury) baseline creatinine 1.4-1.5, EGFR 50. On presentation his serum creatinine was at baseline 01/29/2019. Trended up to 2.1 01/30/2019. He received furosemide as well as 1 dose of bumetanide 01/29/2019. Is also noted that his blood pressure on admission was 170-180 systolic over 90-120 diastolic. The differential at this point is broad and I need more data to narrow it. One consideration is hemodynamic insult in the setting of initial hypertension.He has a Mayo catheter so obstructive uropathy is excluded. Check urinalysis with microscopic exam, spot urine sodium, BUN, creatinine to calculate Fe urea. The diuretic and ARB were held, agree. No: NSAIDs, metformin, magnesium-based stool softeners or phosphorus based stool stool softeners, IV contrast at this point. Dose all medications based on GFR he is status post left thoracentesis. Respiratory status is slightly improved. If the respiratory status was to worsen, okay to readminister IV diuretic to prevent respiratory compromise. Strict I's and O's, low-sodium renal diet, daily standing weights if possible. Status: Acute (2) CKD (chronic kidney disease) stage 3, GFR 30-59 ml/min baseline Scr. As above. He has proteinuric kidney disease in the setting of diabetes, hypertension, congestive heart failure. Prior work-up : UA, proteinuria, hematuria in the setting of oral anticoagulation and UTI SPEP, UPEP without monoclonal protein. C3-C4 within normal limits. Hepatitis B antigen negative, hepatitis B antibody positive, hepatitis C antibody nonreactive. UPCR 1.54 g should be re-quantified as an outpatient. Renal ultrasound 03/11/2018 right kidney 12.3 cm, left kidney 10.6 cm. Anatomically normal kidneys. Status: Acute (3) Hyperphosphatemia Renal diet Status: Acute (4) Localized edema due to fluid overload As well as left pleural effusion status post thoracentesis. Work-up for exudate versus transudate per primary team Serum albumin 2.7, low Echocardiogram THU/09/05 LVEF 25% with global hypokinesis, grade 2 diastolic dysfunction. RV function normal. LV moderately dilated, concentric LVH Work-up/management as above. Status: Acute
[2019-01-30 13:19] LABS: Appearance,Urine CLOUDY; Bacteria,Urine FEW /hpf (0); Bilirubin,Urine NEG (NEG); Calcium Oxalate Crystals,Urine MOD /hpf (0); Color,Urine AMBER; Culture Indicated,Urine YES; Glucose,Urine (UA) NEGATIVE (NEG); Ketones,Urine NEG (NEG); Leukocyte Esterase,Urine NEG /uL (NEG); Mucus,Urine MOD /hpf (0); Nitrate,Urine NEG (NEG); Protein,Urine 100 mg/dL (NEG); Specific Gravity,Urine 1.016 (1.000-1.035); Urine Amorphous Crystals FEW /hpf (0); Urine Blood >=1.0 mg/dL (<0.03); Urine Hyaline Cast 195 /lpf (0-2); Urine RBC > 182 /hpf (0-1); Urine Squamous Epithelial Cell 4 /hpf (0-4); Urine Transitional Epi Cells 1 /hpf (0-2); Urine WBC 13 /hpf (0-4); Urobilinogen,Urine NEG (NEG)
--- NOTE | 2019-01-30 14:35 | Ultrasound Report ---
Ultrasound-guided thoracentesis CLINICAL INFORMATION: Moderate left pleural effusion TECHNIQUE: Procedure and risks including possibility of bleeding, infection, and pneumothorax were explained to the patient. They understood and wished to proceed. With the patient in upright position, the fluid was first sonographically localized over the posterior left 10th intercostal space at posterior axillary line. The skin overlying this region was marked, prepped and locally anesthetized with 1% lidocaine using a 25-gauge needle to the level the parietal pleura. 14-gauge multi-sidehole Angiocath was then advanced under sonographic guidance into the pleural fluid and approximately 1 L of simple appearing transudative fluid was aspirated. Post procedure scanning shows modest residual fluid. Patient tolerated procedure well without apparent complication. Follow-up chest x-ray to be obtained IMPRESSION: Successful thoracentesis yielding 1 L of transudative appearing simple pleural fluid. No apparent complication Interpreted and Authenticated by: Elmo Youngblood 01/30/19
[2019-01-30] MEDS: PIPERACILLIN SODIUM/TAZOBACTAM 3.375 GM in DEXTROSE 5% IN WATER 50 ML IV SCH ×2 (14:59→19:10)
[2019-01-30] MEDS ORDERED: PERMETHRIN CRM 5% TUBE 60GM TOPICAL ONE (17:00)
[2019-01-30] MEDS: ATORVASTATIN 20 MG TABLET PO SCH (21:20)
[2019-01-30] MEDS: TAMSULOSIN 0.4 MG CAPSULE PO SCH (21:20)
[2019-01-30] MEDS: METOPROLOL SUCCINATE 50 MG TAB.XL.24H PO SCH (21:20)
[2019-01-31] MEDS: 0.9 % SODIUM CHLORIDE 10 ML SYRINGE IV SCH ×3 (05:51→21:57)
[2019-01-31] MEDS: PIPERACILLIN SODIUM/TAZOBACTAM 3.375 GM in DEXTROSE 5% IN WATER 50 ML IV SCH ×5 (05:51→23:38)
[2019-01-31 06:30] LABS: INR 3.3 (0.9-1.1); Prothrombin Time 33.4 sec (11.9-14.5)
[2019-01-31 06:34] LABS: Hematocrit 29.8 % (41.0-55.0); Hemoglobin 9.6 g/dL (13.5-16.5); Mean Cell Volume 85.7 fL (80.0-100.0); Mean Corpuscular HGB Conc 32.3 g/dL (31.0-36.0); Mean Platelet Volume 8.2 fL (7.4-10.4); Platelet Count 109 K/mcL (140-440); RBC 3.47 M/mcL (4.50-5.90); Red Cell Distribution Width 17.4 % (11.5-14.5); WBC 8.8 K/mcL (4.5-11.0)
[2019-01-31 06:41] LABS: ALT/SGPT 11 U/l (0-40); AST/SGOT 17 U/l (0-37); Albumin 2.5 gm/dL (3.2-5.2); Albumin/Globulin Ratio 0.7 (1.0-2.3); Alkaline Phosphatase 87 U/L (39-117); Bilirubin,Direct < 0.2 mg/dL (0.0-0.3); Bilirubin,Total 0.5 mg/dL (0.0-1.0); Blood Urea Nitrogen 38 mg/dl (8-23); Calcium 8.2 mg/dl (8.6-10.4); Carbon Dioxide 26 mmol/L (22-30); Chloride 105 mmol/L (96-108); Globulin 3.6 gm/dL (2.2-3.7); Glomerular Filtration Rate 25; Glucose 96 mg/dL (70-105); Lactate Dehydrogenase 251 U/L (94-250); Phosphorous 3.8 mg/dL (2.7-4.5); Triglycerides 102 mg/dl (<150); Uric Acid 7.7 mg/dL (2.5-8.0)
[2019-01-31 07:36] LABS: Anisocytosis 1+ (NONE SEEN); Band Neutrophils % 5 % (0-10); Hypochromasia 1+ (NONE SEEN); Lymphocytes % 9 % (15-49); Monocytes % (Manual) 7 % (1-12); Platelet Estimate DECREASED (NORMAL); Polychromasia 1+ (NONE SEEN); RBC Morphology ABNORM (NORMAL); Segmented Neutrophils % 79 % (38-78)
--- NOTE | 2019-01-31 07:38 | Internal Med Progress Note ---
Medical - PN: Subj Patient information: Note initiated : 01/31/19 at 7:34 am Service Date, if different from initiated Date: [] Patient: Florencio Grace 63 y/o M admitted on 01/29/19 for SOB 3 days. Chief Complaint: [] Interval history: Mr. Grace is a 63 year old M 63-year-old male presents to the ED with shortness of breath for 3 days. He had a chest CT on the which showed a large left effusion was scheduled for thoracentesis on Thursday but patient states he cannot wait. Patient states about 3 days ago he noticed shortness of breath sitting down from walking. It waxed and waned but is the most part progressed. He has a chronic cough but his cough is been more productive of white clear sputum lately. He sleeps in a recliner. Is been doing this for the past few months. Otherwise he gets short of breath if he lays on his back in his bed. He does report a 3 pound weight gain over the past week and has noticed increased swelling in his leg. He has missed taking each of his diuretics 4-5 times in the past couple weeks and states this is related to appointments as he does not have frequent urination while out about. He does not follow with cardiology or nephrology. He is scheduled for a sleep study evaluation on February. He was last admitted to the hospital in early November for septic shock and aspiration pneumonia. With acute renal failure decompensated heart failure. He states his systolic blood pressure at home typically runs 150 occasionally be up to 190 but that is rare. Occasionally has a sharp chest pain lasting 5 seconds and goes away on its own. Denies fever chills. In the ED is found to be hypertensive with initial blood pressure 173/123, tachycardic. He was given Lasix as well as Nitropaste and Coreg which brought blood pressure down. He states he is urinated several times. States he is breathing better. He had a lactate which is within normal limits and a troponin which is negative as well as a CRP. Chest clear with CHF. 01/30 Slept okay. Still shortness of breath but feels it has improved from yesterday. has productive cough of clear/pink sputum. had N/V after breakfast. 01/31 Feeling much better today slept well. Occasional cough improved. Denies shortness of breath. No nausea vomiting. Creatinine worsened today. Review of Systems: denies headache/fever/chills/nausea/vomiting/chest or abdominal pain/diarrhea. Otherwise see above. - Constitutional Vitals: Vital Signs Temp Pulse Resp BP Pulse Ox 97.6 F 75 18 120/73 94 01/31/19 04:24 01/31/19 04:24 01/31/19 04:24 01/31/19 04:24 01/31/19 04:24 Period Temp Pulse Resp BP Sys/Bush Pulse Ox Last 24 Hr 97.6 F-99.9 F 65-79 18-22 113-143/49-73 87-100 Intake and Output 01/30/19 01/31/19 01/31/19 21:59 05:59 13:59 Intake Total 340 650 Output Total 300 375 Balance 40 275 Weight 143.108 kg Intake & Output: Intake & Output 01/30/19 01/31/19 01/31/19 21:59 05:59 13:59 Intake Total 340 650 Output Total 300 375 Balance 40 275 Weight 143.108 kg Intake: IV 100 50 Zosyn 3.375 gm In Dextrose 5% 100 50 in Water 50 ml @ 100 mls/hr IV Q6H [facility] Rx#:[id number] Oral 240 600 Output: Urine Catheter Amount 300 375 Other: Meal Dinner Percent of Meal Consumed 75% snack Feeding Ability Independent Urine Appearance Cloudy Clear Sediment Sediment Uretheral (Mayo) Cloudy Sediment Urine Color Straw Bright Yellow Uretheral (Mayo) Straw Urine Odor Normal Exam: General: Alert, Awake, No acute Distress, obese Eyes/N/T: EOMI, Head/Neck: neck supple, CV: RRR, No murmurs, Pulm: mild fine rales left base otherwise clear, no wheezing clear Abd: soft, nontender, +BS x4 Ext: no clubbing/cyanosis. Right BKA, LLE 2-3+ edema Neuro: Alert, no focal deficits, moves all extremities, Skin: warm/dry Medical - PN: Obj Da - Labs CBC & Chem 7: 01/31/19 04:23 01/31/19 04:23 Labs: Abnormal Lab Results 01/31/19 01/31/19 01/31/19 04:23 04:23 04:23 WBC RBC 3.47 L Hgb 9.6 L Hct 29.8 L RDW 17.4 H Plt Count 109 L Gran % Lymph % (Auto) Gran # Lymph # (Auto) Band Neutrophils % Lymphocytes % Metamyelocytes % Platelet Estimate RBC Morphology Polychromasia Hypochromasia Anisocytosis PT INR BUN 38 H Creatinine 2.6 H Glucose Calcium 8.2 L Phosphorus Lactate Dehydrogenase 251 H C-Reactive Protein 24.4 H NT-Pro-B Natriuret Pep Total Protein Albumin 2.5 L Albumin/Globulin Ratio 0.7 L Urine Protein Urine Occult Blood Urine RBC Urine WBC Calcium Oxalate Crystal Amorphous Crystals Urine Bacteria Hyaline Casts 01/31/19 01/30/19 01/30/19 04:23 12:15 12:15 WBC RBC Hgb Hct RDW Plt Count Gran % Lymph % (Auto) Gran # Lymph # (Auto) Band Neutrophils % Lymphocytes % Metamyelocytes % Platelet Estimate RBC Morphology Polychromasia Hypochromasia Anisocytosis PT 33.4 H INR 3.3 H BUN Creatinine Glucose Calcium Phosphorus Lactate Dehydrogenase C-Reactive Protein 16.6 H NT-Pro-B Natriuret Pep Total Protein Albumin Albumin/Globulin Ratio Urine Protein 100 A Urine Occult Blood >=1.0 A Urine RBC > 182 H Urine WBC 13 H Calcium Oxalate Crystal Mod A Amorphous Crystals Few A Urine Bacteria Few A Hyaline Casts 195 H 01/30/19 01/30/19 01/30/19 04:05 04:05 04:05 WBC RBC Hgb Hct RDW Plt Count Gran % Lymph % (Auto) Gran # Lymph # (Auto) Band Neutrophils % 29 H Lymphocytes % 4 L Metamyelocytes % 1 H Platelet Estimate Decreased A RBC Morphology Abnorm A Polychromasia 1+ A Hypochromasia 1+ A Anisocytosis 1+ A PT 34.7 H INR 3.5 H BUN 25 H Creatinine 2.1 H Glucose Calcium 8.2 L Phosphorus 4.9 H Lactate Dehydrogenase C-Reactive Protein NT-Pro-B Natriuret Pep Total Protein 5.6 L Albumin 2.7 L Albumin/Globulin Ratio 0.9 L Urine Protein Urine Occult Blood Urine RBC Urine WBC Calcium Oxalate Crystal Amorphous Crystals Urine Bacteria Hyaline Casts 01/30/19 01/29/19 01/29/19 04:05 13:50 13:50 WBC 14.1 H RBC 3.32 L Hgb 9.2 L Hct 28.3 L RDW 17.3 H Plt Count 118 L Gran % 88.5 H Lymph % (Auto) 6.0 L Gran # 12.5 H Lymph # (Auto) 0.8 L Band Neutrophils % Lymphocytes % 12 L Metamyelocytes % Platelet Estimate RBC Morphology Polychromasia Hypochromasia Anisocytosis 1+ A PT INR BUN Creatinine 1.4 H Glucose 122 H Calcium Phosphorus Lactate Dehydrogenase C-Reactive Protein NT-Pro-B Natriuret Pep 80076.0 H Total Protein Albumin Albumin/Globulin Ratio Urine Protein Urine Occult Blood Urine RBC Urine WBC Calcium Oxalate Crystal Amorphous Crystals Urine Bacteria Hyaline Casts 01/29/19 01/29/19 13:50 13:50 WBC 12.0 H RBC 4.37 L Hgb 11.8 L Hct 37.0 L RDW 17.4 H Plt Count Gran % 87.1 H Lymph % (Auto) 6.7 L Gran # 10.5 H Lymph # (Auto) 0.8 L Band Neutrophils % Lymphocytes % Metamyelocytes % Platelet Estimate RBC Morphology Polychromasia Hypochromasia Anisocytosis PT 32.4 H INR 3.2 H BUN Creatinine Glucose Calcium Phosphorus Lactate Dehydrogenase C-Reactive Protein NT-Pro-B Natriuret Pep Total Protein Albumin Albumin/Globulin Ratio Urine Protein Urine Occult Blood Urine RBC Urine WBC Calcium Oxalate Crystal Amorphous Crystals Urine Bacteria Hyaline Casts Meds: Medications Acetaminophen (Tylenol) 650 mg PO Q6HP PRN PRN Reason: PAIN/FEVER > 101 Albuterol/Ipratropium (Duoneb) 3 ml NEB Q4HP PRN PRN Reason: Shortness Of Breath Atorvastatin Calcium (Lipitor) 10 mg PO HS [facility] Last Admin: 01/30/19 21:20 Dose: 10 mg Documented by: Dextrose (Dextrose 50%) 0 ml IV UD PRN PRN Reason: Hypoglycemia Diagnostic Test (Pha) (Accu-Chek) 1 each FS ACHS [facility] Last Admin: 01/30/19 21:36 Dose: 1 each Documented by: Docusate Sodium (Colace) 100 mg PO BID [facility] Last Admin: 01/30/19 21:36 Dose: Not Given Documented by: Glucose (Insta-Glucose) 15 gm PO PRN PRN PRN Reason: Hypoglycemia Hydralazine HCl (Apresoline) 0 mg IV Q2HP PRN PRN Reason: Hypertension Potassium Chloride 40 meq/ (Dextrose) 520 mls @ 130 mls/hr IV UD PRN PRN Reason: Potassium < 3 Magnesium Sulfate (Magnesium Sulfate) 2 gm in 50 mls @ 50 mls/hr IV UD PRN PRN Reason: Magnesium </= 1.6 Piperacillin Sod/Tazobactam (Sod 3.375 gm/ Dextrose) 50 mls @ 100 mls/hr IV Q6H [facility]; Protocol Last Admin: 01/31/19 05:51 Dose: 100 mls/hr Documented by: Insulin Glargine (Lantus) 60 unit SQ DAILY [facility] Last Admin: 01/30/19 09:21 Dose: 60 units Documented by: Insulin Human Lispro (Humalog) 0 unit SQ ACHS [facility]; Protocol Last Admin: 01/30/19 21:36 Dose: Not Given Documented by: Lactobacillus Rhamnosus (Culturelle) 1 cap PO BID [facility] Last Admin: 01/30/19 21:20 Dose: 1 cap Documented by: Metoprolol Succinate (Toprol Xl) [address] [facility] Last Admin: 01/30/19 21:20 Dose: 50 mg Documented by: Metoprolol Tartrate (Lopressor) 5 mg IV Q2HP PRN PRN Reason: Tachyarrhythmias HR>110 Ondansetron HCl (Zofran) 4 mg IV Q4HP PRN PRN Reason: Nausea And Vomiting Last Admin: 01/30/19 09:43 Dose: 4 mg Documented by: Polyethylene Glycol (Miralax) 17 gm PO DAILYP PRN PRN Reason: Constipation Potassium Chloride (Kdur) 40 meq PO UD PRN PRN Reason: Potssium is 3-3.5 Potassium Chloride (Kdur) 40 meq PO UD PRN PRN Reason: Potassium < 3 Promethazine HCl (Phenergan) 0 mg PO Q6HP PRN PRN Reason: Nausea And Vomiting Senna (Senokot) 2 tab PO HSP PRN PRN Reason: Constipation Sodium Chloride (Saline Flush) 10 ml IV Q8 [facility] Last Admin: 01/31/19 05:51 Dose: 10 ml Documented by: Tamsulosin HCl (Flomax) 0.[address] [facility] Last Admin: 01/30/19 21:20 Dose: 0.4 mg Documented by: Warfarin Sodium (Coumadin Per Pharmacy) 1 order PO [facility] [place] Medical - PN: A/P - Time Spent With Patient Total time spent is greater than 50% in coordination of care (as documented) at patient's floor/unit and/or counseling patient: - Narrative A/P Narrative: A: *Acute on chronic systolic(25%)/diastolic(II) CHF: improved -has missed dosing of his diuretics past several weeks -f/u CXR much improved *Pulmonary edema and large left pleural effusion, compressive Atelectasis: -thoracentesis (01/30) of 1000cc, exudate by LDH not protein. high nucleated cell of ~11,000 *PNA w/parapneumonic effusion: as above -leukocytosis/bandemia resolved after starting Abx -pct stabilized *Acute Hypoxic Resp failure: 2/2 above -now on room air while sitting in chair *HTN Urgency/emergency: resolved -home meds toprol/valsartan *JERMAN on CKD III (Base Cr ~1.5): -2.6<2.1<1.4 *Morbid obesity: *Suspect MITCHELL: has sleep study ordered in February *DM/retinopathy: On Lantus and metformin *h/o PE: On warfarin *Anemia, chronic: P: -bumex and home aldactone held for now -Nephro following -may benefit from digoxin therapy, but would need to be monitored closely given CKD -zosyn, pending SC/PC -i/os, weights -cont BB, hold ARB for JERMAN, prn IV meds -Basal insulin & SSI -BRYAN/MAYELA wraps to LLE -cont flomax -pt/ot -Referral to see cardiology outpt and f/u with nephrology -ppx: Warfarin per pharmacy (holding warfarin for now as is supratherapeutic) DNR
[2019-01-31] MEDS: DOCUSATE SODIUM 100 MG CAPSULE PO SCH ×2 (08:53→20:48)
[2019-01-31] MEDS: INSULIN LISPRO 1 UNIT/0.01 ML UNIT SQ SCH ×4 (08:53→21:56)
[2019-01-31] MEDS: INSULIN GLARGINE, HUMAN 1 UNIT/0.01 ML SQ SCH (08:53)
[2019-01-31] MEDS: LACTOBACILLUS 1 CAPSULE PO SCH ×2 (08:56→20:48)
[2019-01-31] MEDS ORDERED: BENZOCAINE/MENTHOL 1 LOZENGE PO PRN (11:00)
--- NOTE | 2019-01-31 11:07 | Nephrology Progress Note ---
Subjective Patient information: Note initiated : 01/31/19 at 11:07 am Service Date, if different from initiated Date: [] Patient: Florencio Grace 63 y/o M admitted on 01/29/19 for SOB 3 days. Chief Complaint: [] Principal diagnosis: JERMAN on CKD Interval history: fells better, on room air, good O2 sat sitting in the chair, barney + Objective - Vital Signs Vital signs: Vital Signs Temp Pulse Resp BP Pulse Ox 01/31/19 08:37 36.8 C 22 106/71 92 01/31/19 04:24 36.4 C 75 18 120/73 94 01/31/19 00:51 36.8 C 20 125/55 95 01/30/19 20:00 20 01/30/19 19:56 37.2 C 79 22 143/63 96 01/30/19 16:04 69 114/51 94 01/30/19 13:01 65 98 01/30/19 12:25 68 115/56 95 01/30/19 11:22 70 97 Intake and Output 01/30/19 01/31/19 01/31/19 21:59 05:59 13:59 Intake Total 340 650 650 Output Total 300 375 60 Balance 40 275 590 Intake: IV 100 50 50 Zosyn 3.375 gm In Dextrose 5% 100 50 50 in Water 50 ml @ 100 mls/hr IV Q6H [facility] Rx#:[id number] Oral 240 600 600 Output: Urine Catheter Amount 300 375 60 Other: Meal Dinner Breakfast Percent of Meal Consumed 75% snack 100% Feeding Ability Independent Urine Appearance Cloudy Clear Cloudy Sediment Sediment Uretheral (Barney) Cloudy Cloudy Sediment Urine Color Straw Bright Yellow Dark Yellow Uretheral (Banrey) Straw Dark Yellow Urine Odor Normal Weight 143.108 kg Intake & Output: Intake & Output 01/30/19 01/31/19 01/31/19 21:59 05:59 13:59 Intake Total 340 650 650 Output Total 300 375 60 Balance 40 275 590 Weight 143.108 kg Intake: IV 100 50 50 Zosyn 3.375 gm In Dextrose 5% 100 50 50 in Water 50 ml @ 100 mls/hr IV Q6H [facility] Rx#:[id number] Oral 240 600 600 Output: Urine Catheter Amount 300 375 60 Other: Meal Dinner Breakfast Percent of Meal Consumed 75% snack 100% Feeding Ability Independent Urine Appearance Cloudy Clear Cloudy Sediment Sediment Uretheral (Barney) Cloudy Cloudy Sediment Urine Color Straw Bright Yellow Dark Yellow Uretheral (Barney) Straw Dark Yellow Urine Odor Normal - General Appearance General appearance: obese Respiratory: clear Cardiology: edema, regular rate, regular rhythm - Lab 01/31/19 04:23 01/31/19 04:23 Most recent lab results Calcium 8.2 mg/dl (8.6-10.4) L 01/31/19 04:23 Phosphorus 3.8 mg/dL (2.7-4.5) 01/31/19 04:23 Magnesium 2.0 mg/dL (1.6-2.5) 01/31/19 04:23 Assessment and Plan (1) JERMAN (acute kidney injury) Status: Acute (2) CKD (chronic kidney disease) stage 3, GFR 30-59 ml/min Status: Acute (3) Localized edema due to fluid overload Status: Acute (4) Non compliance with medical treatment Status: Acute - Narrative A/P Narrative: Weight on 01/29/2019 147.4 kg, weight on 01/30/2019 143.1 kg. reports last diu retic dose was several days prior to admission. discussed about the importance of low Na diet and proper diuretic use. that patient wants to take the diureetic only when he thinks it is necessary. I's and O's during this hospitalization total intake 2.5 L, output 1.3 L, fluid balance +1.2 L. Rate of rise in serum creatinine has decreased. Serum creatinine 1.4 on 01/29, 2.1 on 01/30, 2.6 on 01/31. UA hematuria, leukocyturia, urine sodium below 20. FeNa and Feurea consistent with prerenal etiology. urine culture no growth to date. on zosyn. direct urine microscopy - ca oxalate crystals, hematuria, amorphous cellular debris Prior work-up : UA, proteinuria, hematuria in the setting of oral anticoagulation and UTI SPEP, UPEP without monoclonal protein. C3-C4 within normal limits. Hepatitis B antigen negative, hepatitis B antibody positive, hepatitis C antibody nonreactive. UPCR 1.54 g should be re-quantified as an outpatient. Serum albumin 2.5. Chest x-ray 01/30/2019 following left thoracentesis, no complications. Left lower lobe better aerated with partial resolution of atelectasis. Echocardiogram done in November 2018 read as mild cLVH, LVH 25%, grade 2 diastolic dysfunction. Unable to accurately assess RV systolic pressure. In his situation it is difficult to distinguish between prerenal etiology from diuretic administration versus cardiorenal syndrome. I think that he developed prerenal JERMAN in the setting of diuretic use, left thoracentesis and possible component of hemodynamic ATN. Recommend 250 cc IV albumin today, metabolic panel in the morning as well as repeat urine lites urine sodium, urea, creatinine. check IVC diameter and see if it is collapsible to estimate intravascular volume status- can be done by systems technologist.
[2019-01-31] MEDS: METOPROLOL SUCCINATE 50 MG TAB.XL.24H PO SCH (20:48)
[2019-01-31] MEDS: TAMSULOSIN 0.4 MG CAPSULE PO SCH (20:48)
[2019-01-31] MEDS: ATORVASTATIN 20 MG TABLET PO SCH (20:48)
[2019-02-01 05:55] LABS: Prothrombin Time 22.3 sec (11.9-14.5)
[2019-02-01] MEDS: PIPERACILLIN SODIUM/TAZOBACTAM 3.375 GM in DEXTROSE 5% IN WATER 50 ML IV SCH ×2 (06:12→12:30)
[2019-02-01] MEDS: 0.9 % SODIUM CHLORIDE 10 ML SYRINGE IV SCH ×2 (06:12→14:55)
[2019-02-01 07:42] LABS: Basophils # (Auto) 0 K/mcL (0.0-0.3); Basophils % (Auto) 0.2 % (0.0-2.0); Eosinophils # (Auto) 0.1 K/mcL (0.0-0.7); Eosinophils % (Auto) 1.4 % (0.0-7.0); Granulocytes % (Auto) 77.5 % (38.0-78.0); Hematocrit 28.2 % (41.0-55.0); Hemoglobin 9.4 g/dL (13.5-16.5); Lymphocytes # (Auto) 0.7 K/mcL (1.5-4.8); Lymphocytes % (Auto) 8.8 % (15.5-49.0); Mean Cell Volume 83.8 fL (80.0-100.0); Mean Corpuscular HGB Conc 33.2 g/dL (31.0-36.0); Mean Platelet Volume 8.1 fL (7.4-10.4); Monocytes # (Auto) 0.9 K/mcL (0.1-0.9); Monocytes % (Auto) 12.1 % (1.0-12.0); Platelet Count 114 K/mcL (140-440); RBC 3.36 M/mcL (4.50-5.90); Red Cell Distribution Width 17.4 % (11.5-14.5); WBC 7.6 K/mcL (4.5-11.0)
--- NOTE | 2019-02-01 08:14 | Internal Med Progress Note ---
Medical - PN: Subj Patient information: Note initiated : 02/01/19 at 8:09 am Service Date, if different from initiated Date: [] Patient: Florencio Grace 63 y/o M admitted on 01/29/19 for SOB 3 days. Chief Complaint: [] Interval history: Mr. Grace is a 63 year old M 63-year-old male presents to the ED with shortness of breath for 3 days. He had a chest CT on the which showed a large left effusion was scheduled for thoracentesis on Thursday but patient states he cannot wait. Patient states about 3 days ago he noticed shortness of breath sitting down from walking. It waxed and waned but is the most part progressed. He has a chronic cough but his cough is been more productive of white clear sputum lately. He sleeps in a recliner. Is been doing this for the past few months. Otherwise he gets short of breath if he lays on his back in his bed. He does report a 3 pound weight gain over the past week and has noticed increased swelling in his leg. He has missed taking each of his diuretics 4-5 times in the past couple weeks and states this is related to appointments as he does not have frequent urination while out about. He does not follow with cardiology or nephrology. He is scheduled for a sleep study evaluation on February. He was last admitted to the hospital in early November for septic shock and aspiration pneumonia. With acute renal failure decompensated heart failure. He states his systolic blood pressure at home typically runs 150 occasionally be up to 190 but that is rare. Occasionally has a sharp chest pain lasting 5 seconds and goes away on its own. Denies fever chills. In the ED is found to be hypertensive with initial blood pressure 173/123, tachycardic. He was given Lasix as well as Nitropaste and Coreg which brought blood pressure down. He states he is urinated several times. States he is breathing better. He had a lactate which is within normal limits and a troponin which is negative as well as a CRP. Chest clear with CHF. 01/30 Slept okay. Still shortness of breath but feels it has improved from yesterday. has productive cough of clear/pink sputum. had N/V after breakfast. 01/31 Feeling much better today slept well. Occasional cough improved. Denies shortness of breath. No nausea vomiting. Creatinine worsened today. 02/01 Doing better. Had a good bowel movement today. No new complaints. Has occasional cough but denies shortness of breath. Had not improved. Diuretics still held. I took him off oxygen while examined him sats remained >90. Review of Systems: denies headache/fever/chills/nausea/vomiting/chest or abdominal pain/diarrhea. Otherwise see above. - Constitutional Vitals: Vital Signs Temp Pulse Resp BP Pulse Ox 97.3 F 41 L 18 133/61 98 02/01/19 04:36 01/31/19 16:13 02/01/19 04:36 02/01/19 04:36 02/01/19 04:36 Period Temp Pulse Resp BP Sys/Bush Pulse Ox Last 24 Hr 97.3 F-98.8 F 41-99 16-22 106-163/61-79 68-100 Intake and Output 01/31/19 02/01/19 02/01/19 21:59 05:59 13:59 Intake Total 290 650 Output Total 350 400 Balance -60 250 Weight 147.599 kg Intake & Output: Intake & Output 01/31/19 02/01/19 02/01/19 21:59 05:59 13:59 Intake Total 290 650 Output Total 350 400 Balance -60 250 Weight 147.599 kg Intake: IV 50 50 Zosyn 3.375 gm In Dextrose 5% 50 50 in Water 50 ml @ 100 mls/hr IV Q6H [facility] Rx#:[id number] Oral 240 600 Output: Urine Catheter Amount 350 400 Other: Urine Appearance Cloudy Cloudy Urine Color Dark Yellow Dark Yellow Urine Odor Normal Exam: General: Alert, Awake, No acute Distress, obese Eyes/N/T: EOMI, Head/Neck: neck supple, CV: RRR, No murmurs, Pulm: clear laterally, no wheezing clear Abd: soft, nontender, +BS x4 Ext: no clubbing/cyanosis. Right BKA, LLE 2+ edema Neuro: Alert, no focal deficits, moves all extremities, Skin: warm/dry Medical - PN: Obj Da - Labs CBC & Chem 7: 02/01/19 06:30 02/01/19 06:30 Labs: Abnormal Lab Results 02/01/19 02/01/19 01/31/19 06:30 04:20 04:23 WBC RBC 3.36 L Hgb 9.4 L Hct 28.2 L RDW 17.4 H Plt Count 114 L Gran % Lymph % (Auto) 8.8 L [place] % (Auto) 12.1 H Gran # Lymph # (Auto) 0.7 L Seg Neutrophils % Band Neutrophils % Lymphocytes % Metamyelocytes % Platelet Estimate RBC Morphology Polychromasia Hypochromasia Anisocytosis PT 22.3 H INR 2.0 H BUN Creatinine Glucose Calcium Phosphorus Lactate Dehydrogenase C-Reactive Protein 24.4 H NT-Pro-B Natriuret Pep Total Protein Albumin Albumin/Globulin Ratio Urine Protein Urine Occult Blood Urine RBC Urine WBC Calcium Oxalate Crystal Amorphous Crystals Urine Bacteria Hyaline Casts 01/31/19 01/31/19 01/31/19 04:23 04:23 04:23 WBC RBC 3.47 L Hgb 9.6 L Hct 29.8 L RDW 17.4 H Plt Count 109 L Gran % Lymph % (Auto) [place] % (Auto) Gran # Lymph # (Auto) Seg Neutrophils % 79 H Band Neutrophils % Lymphocytes % 9 L Metamyelocytes % Platelet Estimate Decreased A RBC Morphology Abnorm A Polychromasia 1+ A Hypochromasia 1+ A Anisocytosis 1+ A PT 33.4 H INR 3.3 H BUN 38 H Creatinine 2.6 H Glucose Calcium 8.2 L Phosphorus Lactate Dehydrogenase 251 H C-Reactive Protein NT-Pro-B Natriuret Pep Total Protein Albumin 2.5 L Albumin/Globulin Ratio 0.7 L Urine Protein Urine Occult Blood Urine RBC Urine WBC Calcium Oxalate Crystal Amorphous Crystals Urine Bacteria Hyaline Casts 01/30/19 01/30/19 01/30/19 12:15 12:15 04:05 WBC RBC Hgb Hct RDW Plt Count Gran % Lymph % (Auto) [place] % (Auto) Gran # Lymph # (Auto) Seg Neutrophils % Band Neutrophils % 29 H Lymphocytes % 4 L Metamyelocytes % 1 H Platelet Estimate Decreased A RBC Morphology Abnorm A Polychromasia 1+ A Hypochromasia 1+ A Anisocytosis 1+ A PT INR BUN Creatinine Glucose Calcium Phosphorus Lactate Dehydrogenase C-Reactive Protein 16.6 H NT-Pro-B Natriuret Pep Total Protein Albumin Albumin/Globulin Ratio Urine Protein 100 A Urine Occult Blood >=1.0 A Urine RBC > 182 H Urine WBC 13 H Calcium Oxalate Crystal Mod A Amorphous Crystals Few A Urine Bacteria Few A Hyaline Casts 195 H 10/13/19 10/13/19 10/13/19 04:05 04:05 04:05 WBC 14.1 H RBC 3.32 L Hgb 9.2 L Hct 28.3 L RDW 17.3 H Plt Count 118 L Gran % 88.5 H Lymph % (Auto) 6.0 L [place] % (Auto) Gran # 12.5 H Lymph # (Auto) 0.8 L Seg Neutrophils % Band Neutrophils % Lymphocytes % Metamyelocytes % Platelet Estimate RBC Morphology Polychromasia Hypochromasia Anisocytosis PT 34.7 H INR 3.5 H BUN 25 H Creatinine 2.1 H Glucose Calcium 8.2 L Phosphorus 4.9 H Lactate Dehydrogenase C-Reactive Protein NT-Pro-B Natriuret Pep Total Protein 5.6 L Albumin 2.7 L Albumin/Globulin Ratio 0.9 L Urine Protein Urine Occult Blood Urine RBC Urine WBC Calcium Oxalate Crystal Amorphous Crystals Urine Bacteria Hyaline Casts 01/29/19 01/29/19 01/29/19 13:50 13:50 13:50 WBC RBC Hgb Hct RDW Plt Count Gran % Lymph % (Auto) [place] % (Auto) Gran # Lymph # (Auto) Seg Neutrophils % Band Neutrophils % Lymphocytes % 12 L Metamyelocytes % Platelet Estimate RBC Morphology Polychromasia Hypochromasia Anisocytosis 1+ A PT 32.4 H INR 3.2 H BUN Creatinine 1.4 H Glucose 122 H Calcium Phosphorus Lactate Dehydrogenase C-Reactive Protein NT-Pro-B Natriuret Pep 07836.0 H Total Protein Albumin Albumin/Globulin Ratio Urine Protein Urine Occult Blood Urine RBC Urine WBC Calcium Oxalate Crystal Amorphous Crystals Urine Bacteria Hyaline Casts 01/29/19 13:50 WBC 12.0 H RBC 4.37 L Hgb 11.8 L Hct 37.0 L RDW 17.4 H Plt Count Gran % 87.1 H Lymph % (Auto) 6.7 L [place] % (Auto) Gran # 10.5 H Lymph # (Auto) 0.8 L Seg Neutrophils % Band Neutrophils % Lymphocytes % Metamyelocytes % Platelet Estimate RBC Morphology Polychromasia Hypochromasia Anisocytosis PT INR BUN Creatinine Glucose Calcium Phosphorus Lactate Dehydrogenase C-Reactive Protein NT-Pro-B Natriuret Pep Total Protein Albumin Albumin/Globulin Ratio Urine Protein Urine Occult Blood Urine RBC Urine WBC Calcium Oxalate Crystal Amorphous Crystals Urine Bacteria Hyaline Casts Meds: Medications Acetaminophen (Tylenol) 650 mg PO Q6HP PRN PRN Reason: PAIN/FEVER > 101 Albuterol/Ipratropium (Duoneb) 3 ml NEB Q4HP PRN PRN Reason: Shortness Of Breath Atorvastatin Calcium (Lipitor) 10 mg PO HS [facility] Last Admin: 01/31/19 20:48 Dose: 10 mg Documented by: Dextrose (Dextrose 50%) 0 ml IV UD PRN PRN Reason: Hypoglycemia Diagnostic Test (Pha) (Accu-Chek) 1 each FS [facility] Last Admin: 01/31/19 21:27 Dose: 1 each Documented by: Docusate Sodium (Colace) 100 mg PO BID [facility] Last Admin: 01/31/19 20:48 Dose: Not Given Documented by: Glucose (Insta-Glucose) 15 gm PO PRN PRN PRN Reason: Hypoglycemia Hydralazine HCl (Apresoline) 0 mg IV Q2HP PRN PRN Reason: Hypertension Potassium Chloride 40 meq/ (Dextrose) 520 mls @ 130 mls/hr IV UD PRN PRN Reason: Potassium < 3 Magnesium Sulfate (Magnesium Sulfate) 2 gm in 50 mls @ 50 mls/hr IV UD PRN PRN Reason: Magnesium </= 1.6 Piperacillin Sod/Tazobactam (Sod 3.375 gm/ Dextrose) 50 mls @ 100 mls/hr IV Q6H [facility]; Protocol Last Admin: 02/01/19 06:12 Dose: 100 mls/hr Documented by: Insulin Glargine (Lantus) 60 unit SQ DAILY [facility] Last Admin: 01/31/19 08:53 Dose: 60 units Documented by: Insulin Human Lispro (Humalog) 0 unit SQ [facility]; Protocol Last Admin: 01/31/19 21:56 Dose: Not Given Documented by: Lactobacillus Rhamnosus (Culturelle) 1 cap PO BID [facility] Last Admin: 01/31/19 20:48 Dose: 1 cap Documented by: Metoprolol Succinate (Toprol Xl) 50 mg PO HS [facility] Last Admin: 01/31/19 20:48 Dose: 50 mg Documented by: Metoprolol Tartrate (Lopressor) 5 mg IV Q2HP PRN PRN Reason: Tachyarrhythmias HR>110 Ondansetron HCl (Zofran) 4 mg IV Q4HP PRN PRN Reason: Nausea And Vomiting Last Admin: 01/30/19 09:43 Dose: 4 mg Documented by: Polyethylene Glycol (Miralax) 17 gm PO DAILYP PRN PRN Reason: Constipation Potassium Chloride (Kdur) 40 meq PO UD PRN PRN Reason: Potssium is 3-3.5 Potassium Chloride (Kdur) 40 meq PO UD PRN PRN Reason: Potassium < 3 Promethazine HCl (Phenergan) 0 mg PO Q6HP PRN PRN Reason: Nausea And Vomiting Senna (Senokot) 2 tab PO HSP PRN PRN Reason: Constipation Sodium Chloride (Saline Flush) 10 ml IV Q8 [facility] Last Admin: 02/01/19 06:12 Dose: 10 ml Documented by: Tamsulosin HCl (Flomax) 0.4 mg PO HS [facility] Last Admin: 01/31/19 20:48 Dose: 0.4 mg Documented by: Throat Lozenges (Cepacol) 1 lozenge PO PRN PRN PRN Reason: Sore Throat Warfarin Sodium (Coumadin Per Pharmacy) 1 order PO UD [facility] Medical - PN: A/P - Time Spent With Patient Total time spent is greater than 50% in coordination of care (as documented) at patient's floor/unit and/or counseling patient: - Narrative A/P Narrative: A: *Acute on chronic systolic(25%)/diastolic(II) CHF: improved -has missed dosing of his diuretics past several weeks -f/u CXR much improved *Pulmonary edema and large left pleural effusion, compressive Atelectasis: -thoracentesis (01/30) of 1000cc, exudate by LDH not protein. high nucleated cell of ~11,000 *PNA w/parapneumonic effusion: as above -leukocytosis/bandemia resolved after starting Abx -pct stabilized *Acute Hypoxic Resp failure: 2/2 above -now on room air while sitting in chair *HTN Urgency/emergency: resolved -home meds toprol/valsartan *JERMAN on CKD III (Base Cr ~1.5): no improving -2.2<2.6<2.1<1.4 -adequate UOP *Anemia, chronic: *Morbid obesity: *Suspect MITCHELL: has sleep study ordered in February *DM/retinopathy: On Lantus and metformin *h/o PE: On warfarin P: -bumex and home aldactone held for now; will resume home torsemide/aldactone 02/02 -Nephro following; f/u BMP 02/04 and f/u with nephro outpt -may benefit from digoxin therapy, but would need to be monitored closely given CKD -i/os, weights -cont BB, hold ARB for JERMAN and hold upon d/c to f/u with nephrology -zosyn to augmentin renally dose -IS/Acapella -Basal insulin & SSI -BRYAN/MAYELA wraps to LLE -cont flomax -pt/ot -Referral to see cardiology outpt and f/u with nephrology -ppx: Warfarin per pharmacy (holding warfarin for now as is supratherapeutic) DNR
[2019-02-01 08:22] LABS: Blood Urea Nitrogen 40 mg/dl (8-23); Calcium 8.4 mg/dl (8.6-10.4); Carbon Dioxide 27 mmol/L (22-30); Chloride 105 mmol/L (96-108); Glomerular Filtration Rate 30; Glucose 75 mg/dL (70-105)
--- NOTE | 2019-02-01 09:09 | Nephrology Progress Note ---
Subjective Patient information: Note initiated : 02/01/19 at 8:56 am Service Date, if different from initiated Date: [] Patient: Florencio Grace 63 y/o M admitted on 01/29/19 for SOB 3 days. Chief Complaint: [] Principal diagnosis: JERMAN on CKD Interval history: having breakfast at the time of my visit. says "I'm breathing much better, I want to go home" Scr improved; ~ +1L fluid balance on 2L NC sat 98% Objective - Vital Signs Vital signs: Vital Signs Temp Pulse Resp BP Pulse Ox 02/01/19 04:36 36.3 C 18 133/61 98 02/01/19 00:04 36.4 C 16 136/79 98 01/31/19 20:29 37.1 C 20 163/67 96 01/31/19 20:00 96 01/31/19 16:13 41 L 142/71 100 01/31/19 16:12 91 H 92 01/31/19 13:13 99 H 157/77 70 L 01/31/19 13:11 36.3 C 99 H 157/77 68 L Intake and Output 01/31/19 02/01/19 02/01/19 21:59 05:59 13:59 Intake Total 290 650 Output Total 350 400 Balance -60 250 Intake: IV 50 50 Zosyn 3.375 gm In Dextrose 5% 50 50 in Water 50 ml @ 100 mls/hr IV Q6H [facility] Rx#:[id number] Oral 240 600 Output: Urine Catheter Amount 350 400 Other: Urine Appearance Cloudy Cloudy Urine Color Dark Yellow Dark Yellow Urine Odor Normal Weight 147.599 kg Intake & Output: Intake & Output 01/31/19 02/01/19 02/01/19 21:59 05:59 13:59 Intake Total 290 650 Output Total 350 400 Balance -60 250 Weight 147.599 kg Intake: IV 50 50 Zosyn 3.375 gm In Dextrose 5% 50 50 in Water 50 ml @ 100 mls/hr IV Q6H [facility] Rx#:[id number] Oral 240 600 Output: Urine Catheter Amount 350 400 Other: Urine Appearance Cloudy Cloudy Urine Color Dark Yellow Dark Yellow Urine Odor Normal - General Appearance General appearance: obese Respiratory: clear Cardiology: edema, regular rate, regular rhythm Integumentary: warm and dry - Lab 02/01/19 06:30 02/01/19 06:30 Most recent lab results Calcium 8.4 mg/dl (8.6-10.4) L 02/01/19 06:30 Phosphorus 3.8 mg/dL (2.7-4.5) 01/31/19 04:23 Magnesium 2.0 mg/dL (1.6-2.5) 01/31/19 04:23 - Allied health notes Allied health notes reviewed: OT Assessment and Plan (1) JERMAN (acute kidney injury) Status: Acute (2) CKD (chronic kidney disease) stage 3, GFR 30-59 ml/min Status: Chronic (3) Non compliance with medical treatment Status: Chronic (4) Morbid obesity with BMI of 45.0-49.9, adult BMI 46.7 Status: Chronic - Narrative A/P Narrative: Weight on 01/29/2019 147.4 kg-> 143.1 kg -> 147.6 on 02/01 (during last visit ~150kg) I's and O's for the last 24 hours +1L Scr improved to 2.2 from peak 2.6 on 01/31/2019. UA hematuria, leukocyturia, urine sodium below 20. FeNa and Feurea consistent with prerenal etiology. urine culture no growth to date. direct urine microscopy - ca oxalate crystals, hematuria, amorphous cellular debris Prior work-up : UA, proteinuria, hematuria in the setting of oral anticoagulation and UTI. SPEP, UPEP without monoclonal protein. C3-C4 within normal limits. Hepatitis B antigen negative, hepatitis B antibody positive, hepatitis C antibody nonreactive. UPCR 1.54 g should be re-quantified as an outpatient. Serum albumin 2.5 01/31/2019. Chest x-ray 01/30/2019 following left thoracentesis, no complications. Left lower lobe better aerated with partial resolution of atelectasis. Echocardiogram done in November 2018 read as mild cLVH, LVH 25%, grade 2 diastolic dysfunction. Unable to accurately assess RV systolic pressure. based on the fact that his Scr improved after the diuretic was held, pre-renal JERMAN in the setting of diuretic use (intravascular volume depletion), left thoracentesis and possible component of hemodynamic ATN. recs ok to resume diuretic 02/02/2019 10mg torsemide and 25mg spironolactone po daily (to be uptitrated based on response). the patient wants to go home today. if he is discharged today, repeat metabolic panel Thursday02/04/2019. He should ideally see his PCP at the end of the week and nephrology appointment next week Thursday or Wednesday 02/07-. If unable to see PCP, I'd be willing to see him Sunday 02/04. ARB to be held until Scr is back to baseline.
[2019-02-01] MEDS: LACTOBACILLUS 1 CAPSULE PO SCH (09:30)
--- NOTE | 2019-02-01 09:39 | Discharge Summary ---
Medical - DS: Prov Patient information: Note initiated : 02/01/19 at 9:35 am Service Date, if different from initiated Date: [] Patient: Florencio Grace 63 y/o M admitted on 01/29/19 for SOB 3 days. Chief Complaint: [] Date of admission: 01/29/19 17:30 Discharge date: 02/01/19 Primary care physician: Hayley Moore Consults: 01/29/19 16:30 Consult to Physician [CONS] Stat Comment: Consulting Provider: Aaron Regalado Reason For Exam: Physician to Consult 01/30/19 10:15 Consult to Physician [CONS] Routine Comment: miriam on ckd Consulting Provider: Joanna Manzo Reason For Exam: Physician to Consult Medical - DS: Meds - Discharge Medications Prescriptions: Amoxicillin/Potassium Clav [Augmentin] 500 mg PO Q12H #7 tab Warfarin [Coumadin] 3 mg PO DAILY #1 tablet Lactobacillus [Culturelle] 1 cap PO BID #40 cap Active and Home Medications: Home Medications Tamsulosin [Flomax] 0.4 mg PO HS 03/08/18 [History Confirmed 01/29/19 Last Taken 03/08/18 20:00] Warfarin [Coumadin] 2 mg PO DAILY 03/08/18 [History Confirmed 01/29/19 Last Taken 03/08/18 20:00] - Pt states he alternates days of 3mg vs 4mg of Warfarin, not 2mg daily insulin glargine 100) 100 unit/mL subcutaneous solution 60 unit SUB-Q DAILY unit 03/22/18 [History Confirmed 01/29/19 Last Taken Unknown] atorvastatin 10 mg tablet 10 mg PO QDAY 03/23/18 [History Confirmed 01/29/19 Last Taken Unknown] metformin 1,000 mg tablet 1,000 mg PO BID 03/23/18 [History Confirmed 01/29/19 Last Taken Unknown] spironolactone 100 mg tablet 50 mg PO QDAY 03/23/18 [History Confirmed 01/29/19 Last Taken Unknown] valsartan 320 mg tablet 320 mg PO QDAY 03/23/18 [History Confirmed 01/29/19 Last Taken Unknown] Metoprolol Succinate [Toprol Xl] 50 mg PO HS 11/22/18 [History Confirmed 01/29/19 Last Taken Unknown] Oxymetazoline [Afrin] 2 spray IRIS DAILY 11/23/18 [History Confirmed 01/29/19 Last Taken Unknown] Loperamide [Imodium] 2 mg PO Q48H PRN 11/24/18 [History Confirmed 01/29/19 Last Taken Unknown] Torsemide [Demadex] 10 mg PO DAILY 01/30/19 [History Confirmed 01/30/19 Last Taken Unknown] Home Medications Tamsulosin [Flomax] 0.4 mg PO HS 03/08/18 [History Confirmed 01/29/19 Last Taken 03/08/18 20:00] Warfarin [Coumadin] 3mg daily insulin glargine 100) 100 unit/mL subcutaneous solution 60 unit SUB-Q DAILY unit 03/22/18 [History Confirmed 01/29/19 Last Taken Unknown] atorvastatin 10 mg tablet 10 mg PO QDAY 03/23/18 [History Confirmed 01/29/19 Last Taken Unknown] spironolactone 100 mg tablet 50 mg PO QDAY 03/23/18 [History Confirmed 01/29/19 Last Taken Unknown] Metoprolol Succinate [Toprol Xl] 50 mg PO HS 11/22/18 [History Confirmed 01/29/19 Last Taken Unknown] Loperamide [Imodium] 2 mg PO Q48H PRN 11/24/18 [History Confirmed 01/29/19 Last Taken Unknown] Torsemide [Demadex] 10 mg PO DAILY 01/30/19 [History Confirmed 01/30/19 Last Taken Unknown] Amoxicillin/Potassium Clav [Augmentin] 500 mg PO Q12H #7 tablet 02/01/19 [Rx Last Taken Unknown] Lactobacillus [Culturelle] 1 cap PO BID #40 capsule 02/01/19 [Rx Last Taken Unknown] Restart Torsemide/Spironolactone on 02/02, no sooner. Valsartan & Metformin held for poor renal function improved, continue home Lantus. Restart Valsartan when renal fxn baseline Medical - DS: Hosp Hospital Course: Mr. Grace is a 63 year old M 63-year-old male presents to the ED with shortness of breath for 3 days. He had a chest CT on the which showed a large left effusion was scheduled for thoracentesis on Thursday but patient states he cannot wait. Patient states about 3 days ago he noticed shortness of breath sitting down from walking. It waxed and waned but is the most part progressed. He has a chronic cough but his cough is been more productive of white clear sputum lately. He sleeps in a recliner. Is been doing this for the past few months. Otherwise he gets short of breath if he lays on his back in his bed. He does report a 3 pound weight gain over the past week and has noticed increased swelling in his leg. He has missed taking each of his diuretics 4-5 times in the past couple weeks and states this is related to appointments as he does not have frequent urination while out about. He does not follow with cardiology or nephrology. He is scheduled for a sleep study evaluation on February. He was last admitted to the hospital in early November for septic shock and aspiration pneumonia. With acute renal failure decompensated heart failure. He states his systolic blood pressure at home typically runs 150 occasionally be up to 190 but that is rare. Occasionally has a sharp chest pain lasting 5 seconds and goes away on its own. Denies fever chills. In the ED is found to be hypertensive with initial blood pressure 173/123, tachycardic. He was given Lasix as well as Nitropaste and Coreg which brought blood pressure down. He states he is urinated several times. States he is breathing better. He had a lactate which is within normal limits and a troponin which is negative as well as a CRP. Chest clear with CHF. 01/30 Slept okay. Still shortness of breath but feels it has improved from yesterday. has productive cough of clear/pink sputum. had N/V after breakfast. 01/31 Feeling much better today slept well. Occasional cough improved. Denies shortn ess of breath. No nausea vomiting. Creatinine worsened today. 02/01 Doing better. Had a good bowel movement today. No new complaints. Has occasional cough but denies shortness of breath. Had not improved. Diuretics still held. I took him off oxygen while examined him sats remained >90. Worked with physical therapy and did much better today and appears to be baseline. Stable for discharge, but needs close follow-up with primary care and nephrology. Adamantly refuses going to rehab facility. Will discharge with home health care. Patient is a high risk for readmission given his significant comorbidities and debility. Discharge diagnosis: Acute on chronic CHF pneumonia with effusion pulmonary edema Secondary discharge diagnosis: Acute hypoxic respiratory failure hypertensive urgency acute on chronic kidney disease anemia morbid obesity diabetes with retinopathy history of PE suspect MITCHELL - Time Spent with Patient Total time spent providing and/or coordinating discharge services: Greater than 30 minutes Medical - DS: Exam - Constitutional Vitals: Vital Signs Temp Pulse Resp BP Pulse Ox 02/01/19 08:35 98.4 F 20 120/53 99 02/01/19 04:36 97.3 F 18 133/61 98 02/01/19 00:04 97.6 F 16 136/79 98 01/31/19 20:29 98.8 F 20 163/67 96 01/31/19 20:00 96 01/31/19 16:13 41 L 142/71 100 01/31/19 16:12 91 H 92 01/31/19 13:13 99 H 157/77 70 L 01/31/19 13:11 97.4 F 99 H 157/77 68 L Intake and Output 01/31/19 02/01/19 02/01/19 21:59 05:59 13:59 Intake Total 290 650 Output Total 350 400 Balance -60 250 Intake: IV 50 50 Zosyn 3.375 gm In Dextrose 5% 50 50 in Water 50 ml @ 100 mls/hr IV Q6H [facility] Rx#:[id number] Oral 240 600 Output: Urine Catheter Amount 350 400 Other: Urine Appearance Cloudy Cloudy Urine Color Dark Yellow Dark Yellow Urine Odor Normal Weight 147.599 kg Medical - DS: Data Labs on day of discharge: Labs from last 24 hours 02/01/19 02/01/19 02/01/19 06:30 06:30 04:20 WBC 7.6 RBC 3.36 L Hgb 9.4 L Hct 28.2 L MCV 83.8 MCH 27.8 MCHC 33.2 RDW 17.4 H Plt Count 114 L MPV 8.1 Gran % 77.5 Lymph % (Auto) 8.8 L Floyd % (Auto) 12.1 H Eos % (Auto) 1.4 Baso % (Auto) 0.2 Gran # 5.9 Lymph # (Auto) 0.7 L Floyd # (Auto) 0.9 Eos # (Auto) 0.1 Baso # (Auto) 0 PT 22.3 H INR 2.0 H Sodium 141 Potassium 4.1 Chloride 105 Carbon Dioxide 27 Anion Gap 9.0 BUN 40 H Creatinine 2.2 H GFR Calculation 30 Glucose 75 Calcium 8.4 L Preliminary micro results at discharge 01/30/19 09:07 Body Fluid Culture - Preliminary Pleural Fluid 01/30/19 18:26 Sputum Culture - Preliminary Sputum - Induced Medical - DS: A/P - Patient/Caregiver Discharge Instructions Activity: increase activity as tolerated Diet: Low Sodium (2gm), Cardiac Additional Instructions: REFERRAL to cardiology for cardiomyopathy 5-10 days Recommend sleep study Prescriptions: Amoxicillin/Potassium Clav [Augmentin] 500 mg PO Q12H #7 tab Lactobacillus [Culturelle] 1 cap PO BID #40 cap Other Amb Orders: Basic Metabolic Panel Time Frame: 02/04/19, Location: None Selected Prothrombin Time INR Time Frame: 2 Days, Location: None Selected - Follow up Plan Follow up with: Hayley Moore MD [Primary Care Provider] - Joanna Manzo MD [Physician] - Disposition: Home Health Service Prognosis: Fair Rehab Potential: Fair Overall status at discharge: patient is progressing back to baseline
[2019-02-01] MEDS: INSULIN GLARGINE, HUMAN 1 UNIT/0.01 ML SQ SCH (10:10)
[2019-02-01] MEDS: INSULIN LISPRO 1 UNIT/0.01 ML UNIT SQ SCH ×2 (10:20→11:46)
[2019-02-01] MEDS: DOCUSATE SODIUM 100 MG CAPSULE PO SCH (10:21)
--- NOTE | 2019-02-01 11:56 | Non-GYN Cytology Report ---
NON DAMASCENER SPECIMEN NG DX CATEGORY Negative MICROSCOPIC DIAGNOSIS PLEURAL FLUID, THORACENTESIS: -- NO ATYPICAL OR MALIGNANT CELLS IDENTIFIED. -- PREDOMINANTLY ACUTE INFLAMMATORY CELLS PRESENT. (RLF:maria isabel) MICROSCOPIC DESCRIPTION Thinprep, cytospin and cell block slides are examined and demonstrate rare mesothelial cells, numerous neutrophils and occasional lymphocytes and macrophages. No atypical or malignant cells are identified. (RLF:maria isabel) CLINICAL HISTORY Pleural effusion. EXTERNAL COMMENT ~4 mL fresh cloudy pink fluid: 1 thinprep, 1 Bar Giemsa, 1 cell block Electronically Signed by: Elli Lerner M.D.
[2019-02-01] MEDS ORDERED: WARFARIN 2 MG TABLET PO ONE (14:00)
== END 2019-02-01 16:30 | disposition home health service (06) | DRG 291 ==
LOC: ED 13:21 → ICU 17:30
PROVIDERS: ADMIT Internal Medicine; ATTEND Internal Medicine

== ENCOUNTER 2019-03-29 09:40 | Inpatient (IN) ==
--- NOTE | 2019-03-29 10:00 | Emergency Department Note ---
SOB HPI - General Chief Complaint: Shortness of Breath/Dyspnea Stated Complaint: SOB Time Seen by Provider: 03/29/19 09:57 Source: patient Mode of arrival: EMS Limitations: no limitations - History of Present Illness Patient was that this will improve this morning with his sister. He was ambulating into the pool when he became extremely short of breath to the point where they had to call the ambulance and bring him in. The. He does state that he had a low-grade temperature last night 100.8, he also does have a cough, not productive of yellow phlegm, but he is bringing up whitish phlegm. History of severe CHF, also chronic renal insufficiency. Recently seen here in the hospital where he had fluid drained from the left chest, pleural effusion. MD Complaint: shortness of breath - Related Data Home Medications Medication Instructions Recorded Confirmed Tamsulosin [Flomax] 0.4 mg PO HS 03/08/18 03/29/19 insulin glargine 100) 100 unit/mL 60 unit SUB-Q HS unit 03/22/18 03/29/19 subcutaneous solution atorvastatin 10 mg tablet 10 mg PO HS 03/23/18 03/29/19 Loperamide [Imodium] 2 mg PO Q48H PRN 11/24/18 03/29/19 Torsemide [Demadex] 20 mg PO HS 01/30/19 03/29/19 Ferrous Sulfate [Iron] 650 mg PO HS 03/08/19 03/29/19 Ibuprofen/Diphenhydramine Cit 1 each PO HS PRN 03/08/19 03/29/19 [Advil Pm Caplet] Valsartan [Diovan] 320 mg PO HS 03/08/19 03/29/19 metFORMIN HCL [Glucophage] 1,000 mg PO BID 03/08/19 03/29/19 Carvedilol [Coreg] 3.125 mg PO BID 03/29/19 03/29/19 Metoprolol Succinate [Toprol Xl] 50 mg PO HS 03/29/19 03/29/19 Oxymetazoline HCl [Anefrin] 2 - 3 spray IRIS BID PRN 03/29/19 03/29/19 Allergies Allergy/AdvReac Type Severity Reaction Status Date / Time No Known Drug Allergies Allergy Verified 03/29/19 09:44 Review of Systems Constitutional: Denies: fever, chills Cardiovascular: Reports: palpitations, dyspnea on exertion Respiratory: Reports: shortness of breath, cough Gastrointestinal: Reports: nausea. Denies: abdominal pain Past Medical History - Past Medical History [facility] Narrative: - Past Medical History Medical history: Reports: CAD (coronary artery disease) (denied 03-18-19), CHF, DM, hyperlipidemia, hypertension, peripheral artery disease (denied 03-18-19), pulmonary embolus (denied 03-18-19), renal disease. Denies: atrial fibrillation, DVT, myocardial infarction, MITCHELL, pneumonia, PUD Surgical history ED: Reports: orthopedic, other, other (right ankle surgery, bka) - Social History smoking status: Never smoker Alcohol use: Reports: None Drug use: Reports: none. Denies: marij Source: old records reviewed, nursing notes reviewed Medical history: Reports: CAD (coronary artery disease) (denied 03-18-19), CHF, DM, hyperlipidemia, hypertension, peripheral artery disease (denied 03-18-19), pulmonary embolus (denied 03-18-19), renal disease. Denies: atrial fibrillation, DVT, myocardial infarction, MITCHELL, pneumonia, PUD Surgical history ED: Reports: orthopedic, other, other (right ankle surgery, bka) Family history: Reports: CAD/VT, diabetes, hypertension - Social History smoking status: Never smoker Alcohol use: Reports: None Drug use: Reports: none. Denies: marijuana Physical Exam Limitations: no limitations General appearance: alert, in distress Head: atraumatic, normocephalic, normal inspection Eye: Present: normal appearance, PERRL, EOMI, conjunctival injection, visual mcmahan intact. Absent: scleral icterus ENT: Present: normal exam, normal oropharynx, mucous membranes moist, TM's normal bilaterally, other (conjunctival pallor) Neck: Present: normal inspection, full ROM, trachea midline. Absent: tenderness, meningismus Chest: Present: normal inspection, symmetric chest wall rise Respiratory: Present: respiratory distress, rales/crackles, accessory muscle use, decreased breath sounds Cardiovascular: Present: regular rate, tachycardia, normal heart sounds Abdominal: Present: soft, normal bowel sounds. Absent: distention, tenderness, guarding, rebound Extremities: Present: normal inspection Back: Absent: CVA tenderness (R), CVA tenderness (L), vertebral tenderness Neurological: Present: alert, oriented X3. Absent: motor sensory deficit Psychiatric: Present: flat affect Skin: Present: warm, diaphoretic, pallor. Absent: rash, hives Course - Reevaluation(s) Reevaluation #1: Patient started on IV Lasix up. Test x-ray reviewed. It. He does have bilateral infiltrates/effusion, cardiomegaly. His white count is elevated 14,000 and his CRP is elevated as well. It. She has CHF with a proBNP of almost 30,000 as well as possible pneumonia, white count of 14,000 and fever. H e will need antibiotics as well as further treatment for CHF. Troponin so far negative. The. EKG showing bundle branch block, nondiagnostic Reevaluation #2: Discussed hospital admission with Dr. Osuna Vital Signs Temperature 99.0 F 03/29/19 09:41 Pulse Rate 102 H 03/29/19 09:41 Respiratory Rate 28 H 03/29/19 09:41 Blood Pressure 148/115 03/29/19 09:41 Pulse Oximetry (%) 97 03/29/19 09:41 Temperature 100.5 F H 03/29/19 20:01 Pulse Rate 72 03/29/19 21:01 Respiratory Rate 24 H 03/29/19 21:01 Blood Pressure 157/65 03/29/19 21:01 Pulse Oximetry (%) 96 03/29/19 21:01 Shortness of Breath/Dyspnea - MDM Narrative Medical decision making narrative: Final diagnosis is CHF along with pleural effusions and superimposed pneumonia. His and started on IV antibiotics. The. Discussed with our hospitalist. At this point, he will be admitted for the above diagnoses - Lab Data Lab results reviewed: Yes I reviewed the patient's lab results. Result diagrams: 03/29/19 10:07 03/29/19 10:07 Lab Results 03/29/19 03/29/19 03/29/19 Range/Units 10:07 10:07 10:07 WBC 14.1 H (4.5-11.0) K/mcL RBC 3.57 L (4.50-5.90) M/mcL Hgb 9.3 L (13.5-16.5) g/dL Hct 29.6 L (41.0-55.0) % POC Hct 29.0 L (41.0-55.0) % MCV 82.9 (80.0-100.0) fL MCH 26.1 (26.0-34.0) pg MCHC 31.5 (31.0-36.0) g/dL RDW 20.1 H (11.5-14.5) % Plt Count 196 (140-440) K/mcL MPV 7.5 (7.4-10.4) fL Gran % 90.5 H (38.0-78.0) % Lymph % (Auto) 4.0 L (15.5-49.0) % Thurston % (Auto) 4.4 (1.0-12.0) % Eos % (Auto) 1.1 (0.0-7.0) % Baso % (Auto) 0 (0.0-2.0) % Gran # 12.8 H (1.8-8.0) K/mcL Lymph # (Auto) 0.6 L (1.5-4.8) K/mcL Thurston # (Auto) 0.6 (0.1-0.9) K/mcL Eos # (Auto) 0.2 (0.0-0.7) K/mcL Baso # (Auto) 0 (0.0-0.3) K/mcL PT (11.9-14.5) sec INR (0.9-1.1) VBG Lactic Acid 1.4 (0.5-2.0) mmol/L POC Sodium 144 (133-145) mmol/L Sodium 143 (133-145) mmol/L POC Potassium 3.3 (3.3-5.1) mmol/L Potassium 3.4 (3.3-5.1) mmol/L POC Chloride 103 (96-108) mmol/L Chloride 105 (96-108) mmol/L Carbon Dioxide 31 H (22-30) mmol/L POC Total CO2 30 (22-30) mmol/L Anion Gap 7.0 L (8-16) POC BUN 16 (8-23) mg/dl BUN 17 (8-23) mg/dl Creatinine 1.4 H (0.7-1.2) mg/dl POC Creatinine 1.5 H (0.7-1.2) mg/dl GFR Calculation 52 Glucose 140 H (70-105) mg/dL POC Glucose 137 H (70-105) mg/dL Calcium 8.7 (8.6-10.4) mg/dl POC WB Ioniz Calcium 1.14 L (1.16-1.32) mmol/L Total Bilirubin 0.4 (0.0-1.0) mg/dL AST 13 (0-37) U/l ALT 9 (0-40) U/l Alkaline Phosphatase 98 (39-117) U/L Troponin T (0-0.03) ng/ml C-Reactive Protein (0.0-0.8) mg/dl NT-Pro-B Natriuret Pep (0-125) pg/ml Total Protein 7.6 (5.9-8.4) gm/dL Albumin 3.4 (3.2-5.2) gm/dL Globulin 4.2 H (2.2-3.7) gm/dL Albumin/Globulin Ratio 0.8 L (1.0-2.3) Urine Color Urine Appearance Urine pH (5.0-9.0) Ur Specific Lenore (1.000-1.035) Urine Protein (NEG) mg/dL Urine Glucose (UA) (NEG) mg/dL Urine Ketones (NEG) mg/dL Urine Occult Blood (<0.03) mg/dL Urine Nitrate (NEG) Urine Bilirubin (NEG) mg/dL Urine Urobilinogen (NEG) mg/dL Ur Leukocyte Esterase (NEG) /uL Urine RBC (0-1) /hpf Urine WBC (0-4) /hpf Ur Squamous Epith Cells (0-4) /hpf Urine Bacteria (0) /hpf Hyaline Casts (0-2) /lpf Urine Mucus (0) /hpf Ur Culture Indicated? 03/29/19 03/29/19 03/29/19 Range/Units 10:07 10:07 10:07 WBC (4.5-11.0) K/mcL RBC (4.50-5.90) M/mcL Hgb (13.5-16.5) g/dL Hct (41.0-55.0) % POC Hct (41.0-55.0) % MCV (80.0-100.0) fL MCH (26.0-34.0) pg MCHC (31.0-36.0) g/dL RDW (11.5-14.5) % Plt Count (140-440) K/mcL MPV (7.4-10.4) fL Gran % (38.0-78.0) % Lymph % (Auto) (15.5-49.0) % Thurston % (Auto) (1.0-12.0) % Eos % (Auto) (0.0-7.0) % Baso % (Auto) (0.0-2.0) % Gran # (1.8-8.0) K/mcL Lymph # (Auto) (1.5-4.8) K/mcL Thurston # (Auto) (0.1-0.9) K/mcL Eos # (Auto) (0.0-0.7) K/mcL Baso # (Auto) (0.0-0.3) K/mcL PT (11.9-14.5) sec INR (0.9-1.1) VBG Lactic Acid (0.5-2.0) mmol/L POC Sodium (133-145) mmol/L Sodium (133-145) mmol/L POC Potassium (3.3-5.1) mmol/L Potassium (3.3-5.1) mmol/L POC Chloride (96-108) mmol/L Chloride (96-108) mmol/L Carbon Dioxide (22-30) mmol/L POC Total CO2 (22-30) mmol/L Anion Gap (8-16) POC BUN (8-23) mg/dl BUN (8-23) mg/dl Creatinine (0.7-1.2) mg/dl POC Creatinine (0.7-1.2) mg/dl GFR Calculation Glucose (70-105) mg/dL POC Glucose (70-105) mg/dL Calcium (8.6-10.4) mg/dl POC WB Ioniz Calcium (1.16-1.32) mmol/L Total Bilirubin (0.0-1.0) mg/dL AST (0-37) U/l ALT (0-40) U/l Alkaline Phosphatase (39-117) U/L Troponin T 0.02 (0-0.03) ng/ml C-Reactive Protein 2.2 H (0.0-0.8) mg/dl NT-Pro-B Natriuret Pep 26926.0 H (0-125) pg/ml Total Protein (5.9-8.4) gm/dL Albumin (3.2-5.2) gm/dL Globulin (2.2-3.7) gm/dL Albumin/Globulin Ratio (1.0-2.3) Urine Color Urine Appearance Urine pH (5.0-9.0) Ur Specific Lenore (1.000-1.035) Urine Protein (NEG) mg/dL Urine Glucose (UA) (NEG) mg/dL Urine Ketones (NEG) mg/dL Urine Occult Blood (<0.03) mg/dL Urine Nitrate (NEG) Urine Bilirubin (NEG) mg/dL Urine Urobilinogen (NEG) mg/dL Ur Leukocyte Esterase (NEG) /uL Urine RBC (0-1) /hpf Urine WBC (0-4) /hpf Ur Squamous Epith Cells (0-4) /hpf Urine Bacteria (0) /hpf Hyaline Casts (0-2) /lpf Urine Mucus (0) /hpf Ur Culture Indicated? 03/29/19 03/29/19 Range/Units 10:23 10:24 WBC (4.5-11.0) K/mcL RBC (4.50-5.90) M/mcL Hgb (13.5-16.5) g/dL Hct (41.0-55.0) % POC Hct (41.0-55.0) % MCV (80.0-100.0) fL MCH (26.0-34.0) pg MCHC (31.0-36.0) g/dL RDW (11.5-14.5) % Plt Count (140-440) K/mcL MPV (7.4-10.4) fL Gran % (38.0-78.0) % Lymph % (Auto) (15.5-49.0) % Thurston % (Auto) (1.0-12.0) % Eos % (Auto) (0.0-7.0) % Baso % (Auto) (0.0-2.0) % Gran # (1.8-8.0) K/mcL Lymph # (Auto) (1.5-4.8) K/mcL Thurston # (Auto) (0.1-0.9) K/mcL Eos # (Auto) (0.0-0.7) K/mcL Baso # (Auto) (0.0-0.3) K/mcL PT 15.5 H (11.9-14.5) sec INR 1.2 H (0.9-1.1) VBG Lactic Acid (0.5-2.0) mmol/L POC Sodium (133-145) mmol/L Sodium (133-145) mmol/L POC Potassium (3.3-5.1) mmol/L Potassium (3.3-5.1) mmol/L POC Chloride (96-108) mmol/L Chloride (96-108) mmol/L Carbon Dioxide (22-30) mmol/L POC Total CO2 (22-30) mmol/L Anion Gap (8-16) POC BUN (8-23) mg/dl BUN (8-23) mg/dl Creatinine (0.7-1.2) mg/dl POC Creatinine (0.7-1.2) mg/dl GFR Calculation Glucose (70-105) mg/dL POC Glucose (70-105) mg/dL Calcium (8.6-10.4) mg/dl POC WB Ioniz Calcium (1.16-1.32) mmol/L Total Bilirubin (0.0-1.0) mg/dL AST (0-37) U/l ALT (0-40) U/l Alkaline Phosphatase (39-117) U/L Troponin T (0-0.03) ng/ml C-Reactive Protein (0.0-0.8) mg/dl NT-Pro-B Natriuret Pep (0-125) pg/ml Total Protein (5.9-8.4) gm/dL Albumin (3.2-5.2) gm/dL Globulin (2.2-3.7) gm/dL Albumin/Globulin Ratio (1.0-2.3) Urine Color Yellow Urine Appearance Clear Urine pH 6.0 (5.0-9.0) Ur Specific Lenore 1.011 (1.000-1.035) Urine Protein 100 A (NEG) mg/dL Urine Glucose (UA) Negative (NEG) mg/dL Urine Ketones Neg (NEG) mg/dL Urine Occult Blood Neg (<0.03) mg/dL Urine Nitrate Neg (NEG) Urine Bilirubin Neg (NEG) mg/dL Urine Urobilinogen Neg (NEG) mg/dL Ur Leukocyte Esterase Neg (NEG) /uL Urine RBC 1 (0-1) /hpf Urine WBC 1 (0-4) /hpf Ur Squamous Epith Cells < 1 (0-4) /hpf Urine Bacteria 0 (0) /hpf Hyaline Casts 6 H (0-2) /lpf Urine Mucus Few (0) /hpf Ur Culture Indicated? No - Radiology Data Radiology results reviewed: Yes I reviewed the patient's radiology results. Disposition Pt seen by EXECUTIVE SALES ASSISTANT/PA only: No Clinical Impression: Community acquired pneumonia, Congestive heart failure Disposition: Xfer As Inpt ([facility]) Condition: Fair
[2019-03-29] MEDS ORDERED: ACETAMINOPHEN 325 MG TABLET PO ONE (10:10)
[2019-03-29] MEDS ORDERED: DIGOXIN 500 MCG/2 ML AMPUL IV ONE (10:11)
[2019-03-29] MEDS ORDERED: NITROGLYCERIN 1 GM OINT.TOP TD ONE (10:11)
[2019-03-29 10:16] LABS: POC Blood Urea Nitrogen 16 mg/dl (8-23); POC CO2 30 mmol/L (22-30); POC Calcium, Ionized 1.14 mmol/L (1.16-1.32); POC Chloride 103 mmol/L (96-108); POC Creatinine 1.5 mg/dl (0.7-1.2); POC Glucose, Random 137 mg/dL (70-105); POC Potassium 3.3 mmol/L (3.3-5.1); POC Sodium 144 mmol/L (133-145)
[2019-03-29] MEDS ORDERED: FUROSEMIDE 40 MG/4 ML VIAL IV ONE (10:17)
[2019-03-29] MEDS ORDERED: ONDANSETRON 4 MG/2 ML VIAL IV ONE (10:18)
--- NOTE | 2019-03-29 10:23 | XRay Report ---
CLINICAL INFORMATION:Cough TECHNIQUE: AP portable upright chest x-ray COMPARISON: Previous chest x-rays dated 03/23/2019, 03/18/2019. FINDINGS:There is cardiomegaly. Pulmonary vascularity is prominent. There are bilateral parenchymal infiltrates and bilateral pleural effusions. Appearance is consistent with cardiomegaly and congestive heart failure. Clinical correlation follow-up radiographs recommended. IMPRESSION: 1. Cardiomegaly 2. Bilateral parenchymal infiltrates and pleural effusions consistent with congestive heart failure. Interpreted and Authenticated by: Elmo Soliman 03/29/19
[2019-03-29 11:17] LABS: Basophils # (Auto) 0 K/mcL (0.0-0.3); Basophils % (Auto) 0 % (0.0-2.0); Eosinophils # (Auto) 0.2 K/mcL (0.0-0.7); Eosinophils % (Auto) 1.1 % (0.0-7.0); Granulocytes % (Auto) 90.5 % (38.0-78.0); Hematocrit 29.6 % (41.0-55.0); Hemoglobin 9.3 g/dL (13.5-16.5); Lymphocytes # (Auto) 0.6 K/mcL (1.5-4.8); Mean Cell Volume 82.9 fL (80.0-100.0); Mean Corpuscular HGB Conc 31.5 g/dL (31.0-36.0); Mean Platelet Volume 7.5 fL (7.4-10.4); Monocytes # (Auto) 0.6 K/mcL (0.1-0.9); Monocytes % (Auto) 4.4 % (1.0-12.0); Platelet Count 196 K/mcL (140-440); RBC 3.57 M/mcL (4.50-5.90); Red Cell Distribution Width 20.1 % (11.5-14.5); WBC 14.1 K/mcL (4.5-11.0)
[2019-03-29 11:24] LABS: INR 1.2 (0.9-1.1); Prothrombin Time 15.5 sec (11.9-14.5)
[2019-03-29 11:33] LABS: ALT/SGPT 9 U/l (0-40); AST/SGOT 13 U/l (0-37); Albumin 3.4 gm/dL (3.2-5.2); Albumin/Globulin Ratio 0.8 (1.0-2.3); Alkaline Phosphatase 98 U/L (39-117); Bilirubin,Total 0.4 mg/dL (0.0-1.0); Blood Urea Nitrogen 17 mg/dl (8-23); Calcium 8.7 mg/dl (8.6-10.4); Carbon Dioxide 31 mmol/L (22-30); Chloride 105 mmol/L (96-108); Globulin 4.2 gm/dL (2.2-3.7); Glomerular Filtration Rate 52; Glucose 140 mg/dL (70-105)
[2019-03-29 11:38] LABS: Appearance,Urine CLEAR; Bacteria,Urine 0 /hpf (0); Bilirubin,Urine NEG (NEG); Color,Urine YELLOW; Culture Indicated,Urine NO; Glucose,Urine (UA) NEGATIVE (NEG); Ketones,Urine NEG (NEG); Leukocyte Esterase,Urine NEG /uL (NEG); Mucus,Urine FEW /hpf (0); Nitrate,Urine NEG (NEG); Protein,Urine 100 mg/dL (NEG); Specific Gravity,Urine 1.011 (1.000-1.035); Urine Blood NEG mg/dL (<0.03); Urine Hyaline Cast 6 /lpf (0-2); Urine RBC 1 /hpf (0-1); Urine Squamous Epithelial Cell < 1 /hpf (0-4); Urine WBC 1 /hpf (0-4); Urobilinogen,Urine NEG (NEG)
[2019-03-29] MEDS ORDERED: cefTRIAXone 2 GM in DEXTROSE 5% IN WATER 50 ML IV ONE (11:58)
[2019-03-29] MEDS ORDERED: LEVOFLOXACIN 500 MG/100 ML BAG IV ONE (11:59)
--- NOTE | 2019-03-29 12:07 | Internal Med History&Physical ---
Medical - H&P: [facility] Patient information: Note initiated : 03/29/19 at 12:04 pm Service Date, if different from initiated Date: [] Patient: Florencio Grace 63 y/o M admitted on for Shortness of breath. Chief Complaint: [] Chief complaint: Progressive shortness of breath History of present illness: Mr. Grace is a 63 year old M with NYHA class III systolic heart failure with EF 25% and recurrent pleural effusion acquiring monthly thoracentesis, type 2 DM with retinopathy, Rt BKA, obesity, HTN, history of PE on Coumadin, CKD stage III presents to [facility] ER with worsening shortness of breath along with fever of 100.8. Patient was in his baseline state of health until a day prior to presentation however this morning he woke up short of breath. He went to the pool but could not breathe or walk and was profoundly dyspneic even at rest. He subsequently presents to the ER for evaluation. Initial work-up was consistent with acute pulmonary edema with CHF exacerbation and pleural effusion along with a white count of over 14,000. Patient was started on antibiotics after cultures were drawn. Hospitalist service was consulted. At the time evaluation patient is fairly dyspneic. He was able to answer most of the questions in near full sentences. He endorses to yellow productive cough but denies sick contacts or missing his regular medication. He further denies high salt diet or NSAID intake. His last thoracentesis was a month ago. He follows up with primary care physician Buck valdes. He further denies diarrhea, headache, photophobia. Denies any stump wound redness but notices lymphedema and redness left lower extremity. Review of systems A 10 point review system was performed and is negative except for ones cussed above Medical - H&P: PMH Medical history: Systolic NYHA class III CHF Recc Pl effusions CKD (chronic kidney disease) Anemia (Chronic) Pulmonary embolism Heart failure Hypertension Diabetes Colon cancer SOB (shortness of breath) Ankle fracture Past Surgical History History of total replacement of right ankle History of orthopedic surgery History of open reduction and internal fixation (ORIF) procedure History of partial colectomy Family History Mother Bruising Bleeding Clotting disorder Father Prostate cancer Social History 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 Denies drug use Medical - H&P: Meds Home Medications Medication Instructions Recorded Confirmed Type Tamsulosin [Flomax] 0.4 mg PO HS 03/08/18 03/18/19 History insulin glargine 100) 100 unit/mL 60 unit SUB-Q DAILY unit 03/22/18 03/18/19 History subcutaneous solution atorvastatin 10 mg tablet 10 mg PO QDAY 03/23/18 03/18/19 History spironolactone 100 mg tablet 50 mg PO QDAY 03/23/18 03/18/19 History Loperamide [Imodium] 2 mg PO Q48H PRN 11/24/18 03/18/19 History Torsemide [Demadex] 10 mg PO DAILY 01/30/19 03/18/19 History Ferrous Sulfate [Iron] 325 mg PO DAILY 03/08/19 03/18/19 History Ibuprofen/Diphenhydramine Cit 1 each PO HS 03/08/19 03/18/19 History [Advil Pm Caplet] Valsartan [Diovan] 320 mg PO DAILY 03/08/19 03/18/19 History Warfarin [Coumadin] 2 mg PO DAILY 03/08/19 03/18/19 History metFORMIN HCL [Glucophage] 1,000 mg PO DAILY 03/08/19 03/18/19 History Allergies Allergy/AdvReac Type Severity Reaction Status Date / Time No Known Drug Allergies Allergy Verified 03/29/19 09:44 Medical - H&P: Exam - Constitutional Vitals: Temp Pulse Resp BP Pulse Ox 99 F 86 24 H 129/60 96 03/29/19 10:25 03/29/19 10:47 03/29/19 10:47 03/29/19 10:47 03/29/19 10:47 General appearance: morbidly obese Exam: Alert and oriented, minimal anxiety Head normocephalic Oral cavity dry No ear nose discharge Eye movement symmetrical Neck no lymphadenopathy S1-S2 occasionally irregular, ESM grade 1, diminished breath sounds bilateral bases, late inspiratory crackles. Abdomen soft nontender pendulous Lower extremity no cyanosis clubbing, right BKA stump with prosthesis Left lower extremity redness/lymphedema but no cyanosis clubbing Skin no suspicious lesion Psych anxious but alert and cooperative Neuro nonfocal Medical - H&P: Reslt - Labs CBC & Chem 7: 03/29/19 10:07 03/29/19 10:07 Labs: Short CBC 03/29/19 Range/Units 10:07 WBC 14.1 H (4.5-11.0) K/mcL Hgb 9.3 L (13.5-16.5) g/dL Hct 29.6 L (41.0-55.0) % Plt Count 196 (140-440) K/mcL BMP 03/29/19 10:07 Sodium 143 Potassium 3.4 Chloride 105 Carbon Dioxide 31 H BUN 17 Creatinine 1.4 H Glucose 140 H Calcium 8.7 Cardiac Enzymes 03/29/19 Range/Units 10:07 Troponin T 0.02 (0-0.03) ng/ml Liver Function 03/29/19 Range/Units 10:07 Total Bilirubin 0.4 (0.0-1.0) mg/dL AST 13 (0-37) U/l ALT 9 (0-40) U/l Alkaline Phosphatase 98 (39-117) U/L Albumin 3.4 (3.2-5.2) gm/dL Urine 03/29/19 Range/Units 10:24 Urine Color Yellow Urine Appearance Clear Urine pH 6.0 (5.0-9.0) Ur Specific [place] 1.011 (1.000-1.035) Urine Protein 100 A (NEG) mg/dL Urine Glucose (UA) Negative (NEG) mg/dL Medical - H&P: A/P (1) Heart failure, systolic, with acute decompensation Current visit: Yes Status: Acute * Acute decompensated heart failure with pulmonary edema/pleural effusions. Start aggressive diuresis. Last known EF 25%. Unclear precipitant. Restart home medications once acute decompensation resolves including beta-medhat/ARB * Sepsis with elevated white count likely secondary to pneumonia. Continue management per guidelines, pancultures, broad antibiotics. * Pneumonia likely community-acquired. Continue antibiotic coverage. De- escalate based on cultures. * Hypoxic respiratory failure secondary above-continue supplemental oxygen/noninvasive mechanical ventilation if indicated * Chronic renal disease currently at baseline * DM type II -resume home medications * PVD/history of BKA. [facility] care * History of CAD continue statin/isosorbide/anticoagulation * History of PE continue anticoagulation * History of BPH home dose Flomax * Hyperlipidemia on statin * Full code Plan * Inpatient admission * Broad antibiotic coverage * Aggressive diuresis * Noninvasive mechanical ventilation if indicated * Serial chest imaging/ABG * Pre-existing medical condition management home meds
[2019-03-29] MEDS ORDERED: BISACODYL 10 MG SUPP.RECT PR PRN (14:27)
[2019-03-29] MEDS ORDERED: ONDANSETRON 4 MG/2 ML VIAL IV PRN (14:27)
[2019-03-29] MEDS ORDERED: DEXTROSE 31 GM ORAL.SUSP PO PRN (14:27)
[2019-03-29] MEDS ORDERED: ACETAMINOPHEN 650 MG/65 ML BOTTLE IV PRN (14:27)
[2019-03-29] MEDS ORDERED: ACETAMINOPHEN 325 MG TABLET PO PRN (14:27)
[2019-03-29] MEDS ORDERED: DEXTROSE 50% 50 ML VIAL IV PRN (14:27)
[2019-03-29] MEDS ORDERED: cefTRIAXone 2 GM in DEXTROSE 5% IN WATER 50 ML IV SCH (14:27)
[2019-03-29] MEDS ORDERED: MAGNESIUM SULFATE 2 GM/50 ML BAG IV PRN (14:27)
[2019-03-29] MEDS ORDERED: ONDANSETRON 4 MG ODT TABLET SL PRN (14:27)
[2019-03-29] MEDS ORDERED: IPRATROPIUM/ALBUTEROL 3 ML AMPUL.NEB NEB PRN (14:27)
[2019-03-29] MEDS ORDERED: POLYETHYLENE GLYCOL 3350 17 GM PACKET PO PRN (14:27)
[2019-03-29] MEDS ORDERED: POTASSIUM CHLORIDE 20 MEQ PACKET PO PRN (14:27)
[2019-03-29] MEDS: 0.9 % SODIUM CHLORIDE 10 ML SYRINGE IV SCH ×2 (14:52→20:32)
[2019-03-29] MEDS: LEVOFLOXACIN 750 MG/150 ML BAG IV SCH (15:03)
[2019-03-29] MEDS: INSULIN LISPRO 1 UNIT/0.01 ML UNIT SQ SCH ×2 (15:21→20:31)
[2019-03-29] MEDS ORDERED: LIDOCAINE 2% URO-JET 5 ML JEL.PF.APP UR ONE (16:58)
[2019-03-29] MEDS: METOLAZONE 2.5 MG TABLET PO SCH (17:06)
[2019-03-29] MEDS: FUROSEMIDE 40 MG/4 ML VIAL IV SCH ×2 (17:14→20:30)
[2019-03-29] MEDS: HEPARIN 5,000 UNIT/ML VIAL SQ SCH (20:30)
[2019-03-29] MEDS: DOCUSATE SODIUM 100 MG CAPSULE PO SCH (20:31)
[2019-03-29] MEDS ORDERED: SENNOSIDES/DOCUSATE SODIUM 1 TAB TABLET PO SCH (21:00)
[2019-03-29] MEDS ORDERED: MELATONIN 3 MG TABLET PO PRN (21:00)
[2019-03-30] MEDS: BUDESONIDE 0.5 MG/2 ML AMPUL.NEB NEB SCH ×3 (00:45→21:15)
[2019-03-30] MEDS: FUROSEMIDE 40 MG/4 ML VIAL IV SCH ×3 (05:33→22:18)
[2019-03-30] MEDS: 0.9 % SODIUM CHLORIDE 10 ML SYRINGE IV SCH ×4 (05:34→22:18)
[2019-03-30] MEDS: INSULIN LISPRO 1 UNIT/0.01 ML UNIT SQ SCH ×4 (08:14→20:23)
[2019-03-30] MEDS: DOCUSATE SODIUM 100 MG CAPSULE PO SCH ×2 (08:15→19:57)
[2019-03-30] MEDS: HEPARIN 5,000 UNIT/ML VIAL SQ SCH ×2 (08:26→20:10)
[2019-03-30] MEDS: METOLAZONE 2.5 MG TABLET PO SCH (08:26)
[2019-03-30 08:57] LABS: Hematocrit 26.4 % (41.0-55.0); Hemoglobin 8.3 g/dL (13.5-16.5); Mean Cell Volume 83.8 fL (80.0-100.0); Mean Corpuscular HGB Conc 31.5 g/dL (31.0-36.0); Mean Platelet Volume 7.6 fL (7.4-10.4); Platelet Count 155 K/mcL (140-440); RBC 3.15 M/mcL (4.50-5.90); Red Cell Distribution Width 20.7 % (11.5-14.5); WBC 11.9 K/mcL (4.5-11.0)
[2019-03-30] MEDS ORDERED: THIAMINE 100 MG TABLET PO SCH (09:00)
[2019-03-30] MEDS ORDERED: sitaGLIPtin 100 MG TABLET PO SCH (09:00)
[2019-03-30] MEDS ORDERED: cefTRIAXone 2 GM in DEXTROSE 5% IN WATER 50 ML IV SCH (09:00)
[2019-03-30] MEDS ORDERED: MULTIVIT,THER IRON,CA,FA & MIN 1 TABLET PO SCH (09:00)
[2019-03-30] MEDS: LEVOFLOXACIN 750 MG/150 ML BAG IV SCH (09:03)
[2019-03-30 10:35] LABS: Anisocytosis 1+ (NONE SEEN); Band Neutrophils % 2 % (0-10); Eosinophils % (Manual) 1 % (0-7); Hypochromasia FEW (NONE SEEN); Lymphocytes % 2 % (15-49); Microcytosis FEW (NONE SEEN); Monocytes % (Manual) 4 % (1-12); Platelet Estimate NORMAL (NORMAL); Polychromasia FEW (NONE SEEN); RBC Morphology ABNORM (NORMAL); Segmented Neutrophils % 91 % (38-78)
[2019-03-30 10:46] LABS: ALT/SGPT 6 U/l (0-40); AST/SGOT 12 U/l (0-37); Albumin 2.7 gm/dL (3.2-5.2); Albumin/Globulin Ratio 0.7 (1.0-2.3); Alkaline Phosphatase 100 U/L (39-117); Bilirubin,Direct < 0.2 mg/dL (0.0-0.3); Bilirubin,Total 0.3 mg/dL (0.0-1.0); Blood Urea Nitrogen 17 mg/dl (8-23); Calcium 8.3 mg/dl (8.6-10.4); Carbon Dioxide 32 mmol/L (22-30); Chloride 103 mmol/L (96-108); Glomerular Filtration Rate 45; Glucose 93 mg/dL (70-105); Lactate Dehydrogenase 273 U/L (94-250); Phosphorous 4.4 mg/dL (2.7-4.5); Triglycerides 71 mg/dl (<150); Uric Acid 8.8 mg/dL (2.5-8.0)
[2019-03-30] MEDS ORDERED: LOPERAMIDE 2 MG CAPSULE PO PRN ×2 (14:38→15:44)
[2019-03-30] MEDS ORDERED: IBUPROFEN PO PRN (14:38)
[2019-03-30] MEDS ORDERED: [UNRECOGNIZED DRUG - OTHER] PO PRN (14:38)
[2019-03-30] MEDS ORDERED: DIPHENHYDRAMINE CIT PO PRN (14:38)
--- NOTE | 2019-03-30 14:39 | Internal Med Progress Note ---
Medical - PN: Subj Patient information: Note initiated : 03/30/19 at 2:36 pm Service Date, if different from initiated Date: [] Patient: Florencio Grace a 63 y/o M admitted on 03/29/19 for Shortness of breath. Chief Complaint: [] Interval history: Mr. Grace is a 63 year old M with NYHA class III systolic heart failure with EF 25% and recurrent pleural effusion acquiring monthly thoracentesis, type 2 DM with retinopathy, Rt BKA, obesity, HTN, history of PE on Coumadin, CKD stage III presents to [facility] ER with worsening shortness of breath along with fever of 100.8. Patient was in his baseline state of health until a day prior to presentation however this morning he woke up short of breath. He went to the pool but could not breathe or walk and was profoundly dyspneic even at rest. He subsequently presents to the ER for evaluation. Initial work-up was consistent with acute pulmonary edema with CHF exacerbation and pleural effusion along with a white count of over 14,000. Patient was started on antibiotics after cultures were drawn. Hospitalist service was consulted. At the time evaluation patient is fairly dyspneic. He was able to answer most of the questions in near full sentences. He endorses to yellow productive cough but denies sick contacts or missing his regular medication. He further denies high salt diet or NSAID intake. His last thoracentesis was a month ago. He follows up with primary care physician Buck valdes. He further denies diarrhea, headache, photophobia. Denies any stump wound redness but notices lymphedema and redness left lower extremity. 03/30-patient did well overnight. Diuresed well. Over 3200 cc net negative fluid balance. Improved shortness of breath. Now on room air. Feels close to baseline. Transfer to medical floor with continued diuresis. Possible discharge in 24 hours. White count down to 11.9. Remains afebrile. Creatinine 1.6. Improved lymphedema. - Constitutional Vitals: Vital Signs Temp Pulse Resp BP Pulse Ox 97.8 F 72 20 150/82 97 03/30/19 09:01 03/30/19 14:01 03/30/19 14:01 03/30/19 14:01 03/30/19 14:01 Period Temp Pulse Resp BP Sys/Bush Pulse Ox Last 24 Hr 97.8 F-100.5 F 58-86 14-31 82-162/50-150 83-100 Intake and Output 03/30/19 03/30/19 03/30/19 05:59 13:59 21:59 Intake Total 120 Output Total 1130 1230 120 Balance -1130 -1110 -120 Intake & Output: Intake & Output 03/30/19 03/30/19 03/30/19 05:59 13:59 21:59 Intake Total 120 Output Total 1130 1230 120 Balance -1130 -1110 -120 Intake: Oral 120 Output: Urine Catheter Amount 1130 1230 120 Other: Meal cup of tuna and crackers Breakfast Percent of Meal Consumed 25% 100% Feeding Ability Independent Independent Urine Appearance Clear Uretheral (Mayo) Clear Clear Urine Color Pale Pale Uretheral (Mayo) Pale Pale Exam: Alert oriented Nonlabored breathing Nondistended abdomen Lymphedema left lower extremity Diminished breath sounds bases Medical - PN: Obj Da - Labs CBC & Chem 7: 03/30/19 06:51 03/30/19 06:51 Labs: Abnormal Lab Results 03/30/19 03/30/19 03/29/19 06:51 06:51 10:24 WBC 11.9 H RBC 3.15 L Hgb 8.3 L Hct 26.4 L POC Hct RDW 20.7 H Gran % Lymph % (Auto) Gran # Lymph # (Auto) Seg Neutrophils % 91 H Lymphocytes % 2 L RBC Morphology Abnorm A Polychromasia Few A Hypochromasia Few A Anisocytosis 1+ A Microcytosis Few A PT INR Carbon Dioxide 32 H Anion Gap Creatinine 1.6 H POC Creatinine Glucose POC Glucose Uric Acid 8.8 H Calcium 8.3 L POC WB Ioniz Calcium Lactate Dehydrogenase 273 H C-Reactive Protein NT-Pro-B Natriuret Pep Albumin 2.7 L Globulin 4.0 H Albumin/Globulin Ratio 0.7 L Urine Protein 100 A Hyaline Casts 6 H 03/29/19 03/29/19 03/29/19 10:23 10:07 10:07 WBC RBC Hgb Hct POC Hct RDW Gran % Lymph % (Auto) Gran # Lymph # (Auto) Seg Neutrophils % Lymphocytes % RBC Morphology Polychromasia Hypochromasia Anisocytosis Microcytosis PT 15.5 H INR 1.2 H Carbon Dioxide Anion Gap Creatinine POC Creatinine Glucose POC Glucose Uric Acid Calcium POC WB Ioniz Calcium Lactate Dehydrogenase C-Reactive Protein 2.2 H NT-Pro-B Natriuret Pep 15329.0 H Albumin Globulin Albumin/Globulin Ratio Urine Protein Hyaline Casts 03/29/19 03/29/19 10:07 10:07 WBC 14.1 H RBC 3.57 L Hgb 9.3 L Hct 29.6 L POC Hct 29.0 L RDW 20.1 H Gran % 90.5 H Lymph % (Auto) 4.0 L Gran # 12.8 H Lymph # (Auto) 0.6 L Seg Neutrophils % Lymphocytes % RBC Morphology Polychromasia Hypochromasia Anisocytosis Microcytosis PT INR Carbon Dioxide 31 H Anion Gap 7.0 L Creatinine 1.4 H POC Creatinine 1.5 H Glucose 140 H POC Glucose 137 H Uric Acid Calcium POC WB Ioniz Calcium 1.14 L Lactate Dehydrogenase C-Reactive Protein NT-Pro-B Natriuret Pep Albumin Globulin 4.2 H Albumin/Globulin Ratio 0.8 L Urine Protein Hyaline Casts Meds: Medications Acetaminophen (Tylenol) 650 mg PO Q4-6HP PRN; Protocol PRN Reason: Per Pain Protocol/Fever > 101 Albuterol/Ipratropium (Duoneb) 3 ml NEB Q4HP PRN PRN Reason: Shortness Of Breath Bisacodyl (Dulcolax) 10 mg [place] Q2-3DAYS PRN PRN Reason: Constipation Budesonide (Pulmicort) 0.5 mg NEB Q12 [facility] Last Admin: 03/30/19 10:40 Dose: Not Given Documented by: Dextrose (Dextrose 50%) 0 ml IV UD PRN PRN Reason: Hypoglycemia Diagnostic Test (Pha) (Accu-Chek) 1 each FS ACHS [facility] Last Admin: 03/30/19 12:19 Dose: 1 each Documented by: Docusate Sodium (Colace) 100 mg PO BID [facility] Last Admin: 03/30/19 08:15 Dose: Not Given Documented by: Furosemide (Lasix) 40 mg IV Q8 [facility] Last Admin: 03/30/19 14:17 Dose: 40 mg Documented by: Glucose (Insta-Glucose) 15 gm PO PRN PRN PRN Reason: Hypoglycemia Heparin Sodium (Porcine) (Heparin) 5,000 unit SQ Q12 [facility] Last Admin: 03/30/19 08:26 Dose: 5,000 unit Documented by: Acetaminophen (Ofirmev) 650 mg in 65 mls @ 130 mls/hr IV Q6HP PRN; Protocol PRN Reason: Per Pain Protocol/Fever > 101 Magnesium Sulfate (Magnesium Sulfate) 2 gm in 50 mls @ 50 mls/hr IV UD PRN PRN Reason: MG = or < 1.7 Levofloxacin (Levaquin) 750 mg in 150 mls @ 100 mls/hr IV DAILY [facility]; Protocol Last Admin: 03/30/19 09:03 Dose: 100 mls/hr Documented by: Ceftriaxone Sodium 2 gm/ (Dextrose) 50 mls @ 100 mls/hr IV DAILY [facility]; Protocol Last Admin: 03/30/19 08:26 Dose: 100 mls/hr Documented by: Insulin Human Lispro (Humalog) 0 unit SQ ACHS [facility]; Protocol Last Admin: 03/30/19 12:19 Dose: Not Given Documented by: Iron Carb/Multivit/Bead Flipper/Folic Acid (Multivitamin W/Minerals) 1 tab PO DAILY [facility] Last Admin: 03/30/19 08:26 Dose: 1 tab Documented by: Melatonin (Melatonin 3mg Tablet) 3 mg PO HSP PRN PRN Reason: Insomnia Last Admin: 03/29/19 20:30 Dose: 3 mg Documented by: Metolazone (Zaroxolyn) 2.5 mg PO DAILY@0830 [facility] Last Admin: 03/30/19 08:26 Dose: 2.5 mg Documented by: Ondansetron HCl (Zofran Odt) 4 mg SL Q4-6HP PRN; Protocol PRN Reason: Nausea And Vomiting Ondansetron HCl (Zofran) 4 mg IV Q4-6HP PRN; Protocol PRN Reason: Nausea And Vomiting Polyethylene Glycol (Miralax) 17 gm PO DAILYP PRN PRN Reason: Constipation Potassium Chloride (Klor-Con) 40 meq PO DAILYP PRN PRN Reason: K+ < 3.5 Last Admin: 03/29/19 20:32 Dose: 40 meq Documented by: Senna/Docusate Sodium (Senna Plus Tablet) 1 tab PO HS [facility] Last Admin: 03/29/19 20:32 Dose: Not Given Documented by: Sitagliptin Phosphate (Januvia) 100 mg PO DAILY [facility] Last Admin: 12/11/19 08:26 Dose: 100 mg Documented by: Sodium Chloride (Saline Flush) 10 ml IV Q8 [facility] Last Admin: 03/30/19 14:17 Dose: 10 ml Documented by: Thiamine HCl (Vitamin B1) 100 mg PO DAILY [facility] Last Admin: 03/30/19 08:26 Dose: 100 mg Documented by: Medical - PN: A/P - Time Spent With Patient Total time spent is greater than 50% in coordination of care (as documented) at patient's floor/unit and/or counseling patient: 25 - 35 minutes (1) Heart failure, systolic, with acute decompensation Status: Acute Assessment and plan: * Acute decompensated heart failure with pulmonary edema/pleural effusions. Responded well to aggressive diuresis. Now on room air. Much improved dyspnea. Last known EF 25%. Likely secondary to poor compliance as patient would often not take his diuretics due to increased frequency of urination. Continue beta-medhat/ARB * Sepsis with elevated white count likely secondary to pneumonia. Continue management per guidelines, pancultures, broad antibiotics. * Pneumonia likely community-acquired. Continue antibiotic coverage. De- escalate based on cultures. * Hypoxic respiratory failure secondary above-continue supplemental oxy gen/noninvasive mechanical ventilation if indicated * Chronic renal disease currently at baseline. Creatinine 1.6 * DM type II -well-controlled on home medications * PVD/history of BKA. [facility] care * History of CAD continue statin/isosorbide/anticoagulation * History of PE continue anticoagulation * History of BPH home dose Flomax * Hyperlipidemia on statin * Full code Plan * Continue diuresis * Transfer to medical floor * De-escalate antibiotic coverage in 24 hours * Restart home medications * PT OT nutrition support * Discharge planning Current Visit: Yes Medical - PN: Qual - VTE Deep Vein Thrombosis/Pulmonary Embolism Present on Admission: No
[2019-03-30] MEDS ORDERED: BISACODYL 10 MG SUPP.RECT PR PRN (15:44)
[2019-03-30] MEDS ORDERED: DEXTROSE 31 GM ORAL.SUSP PO PRN (15:44)
[2019-03-30] MEDS ORDERED: DEXTROSE 50% 50 ML VIAL IV PRN (15:44)
[2019-03-30] MEDS ORDERED: ACETAMINOPHEN 325 MG TABLET PO PRN (15:44)
[2019-03-30] MEDS ORDERED: IPRATROPIUM/ALBUTEROL 3 ML AMPUL.NEB NEB PRN (15:44)
[2019-03-30] MEDS ORDERED: ONDANSETRON 4 MG/2 ML VIAL IV PRN (15:44)
[2019-03-30] MEDS ORDERED: POTASSIUM CHLORIDE 20 MEQ PACKET PO PRN (15:44)
[2019-03-30] MEDS ORDERED: ACETAMINOPHEN 650 MG/65 ML BOTTLE IV PRN (15:44)
[2019-03-30] MEDS ORDERED: ONDANSETRON 4 MG ODT TABLET SL PRN (15:44)
[2019-03-30] MEDS ORDERED: MAGNESIUM SULFATE 2 GM/50 ML BAG IV PRN (15:44)
[2019-03-30] MEDS ORDERED: POLYETHYLENE GLYCOL 3350 17 GM PACKET PO PRN (15:44)
[2019-03-30] MEDS ORDERED: MELATONIN 3 MG TABLET PO PRN (15:44)
[2019-03-30] MEDS: CARVEDILOL 3.125 MG TABLET PO SCH (17:15)
[2019-03-30] MEDS: metFORMIN 500 MG TABLET PO SCH (17:15)
[2019-03-30] MEDS ORDERED: metFORMIN 500 MG TABLET PO SCH (17:30)
[2019-03-30] MEDS ORDERED: CARVEDILOL 3.125 MG TABLET PO SCH (17:30)
[2019-03-30] MEDS: SENNOSIDES/DOCUSATE SODIUM 1 TAB TABLET PO SCH (19:58)
[2019-03-30] MEDS: METOPROLOL SUCCINATE 50 MG TAB.XL.24H PO SCH (20:08)
[2019-03-30] MEDS: ATORVASTATIN 20 MG TABLET PO SCH (20:08)
[2019-03-30] MEDS: OLMESARTAN MEDOXOMIL 20 MG TABLET PO SCH (20:09)
[2019-03-30] MEDS: TORSEMIDE 10 MG TABLET PO SCH (20:09)
[2019-03-30] MEDS: FERROUS SULFATE 325 MG TABLET PO SCH (20:09)
[2019-03-30] MEDS: TAMSULOSIN 0.4 MG CAPSULE PO SCH (20:10)
[2019-03-30] MEDS: INSULIN GLARGINE, HUMAN 1 UNIT/0.01 ML SQ SCH (20:12)
[2019-03-30] MEDS ORDERED: ATORVASTATIN 20 MG TABLET PO SCH (21:00)
[2019-03-30] MEDS ORDERED: TAMSULOSIN 0.4 MG CAPSULE PO SCH (21:00)
[2019-03-30] MEDS ORDERED: METOPROLOL SUCCINATE 50 MG TAB.XL.24H PO SCH (21:00)
[2019-03-30] MEDS ORDERED: OLMESARTAN MEDOXOMIL 20 MG TABLET PO SCH (21:00)
[2019-03-30] MEDS ORDERED: FERROUS SULFATE 325 MG TABLET PO SCH (21:00)
[2019-03-30] MEDS ORDERED: TORSEMIDE 10 MG TABLET PO SCH (21:00)
[2019-03-30] MEDS ORDERED: INSULIN GLARGINE, HUMAN 1 UNIT/0.01 ML SQ SCH (21:00)
[2019-03-31] MEDS: FUROSEMIDE 40 MG/4 ML VIAL IV SCH ×3 (06:02→21:32)
[2019-03-31] MEDS: 0.9 % SODIUM CHLORIDE 10 ML SYRINGE IV SCH ×3 (06:03→21:33)
[2019-03-31 06:39] LABS: Hematocrit 24.5 % (41.0-55.0); Hemoglobin 7.8 g/dL (13.5-16.5); Mean Cell Volume 83.6 fL (80.0-100.0); Mean Corpuscular HGB Conc 31.7 g/dL (31.0-36.0); Mean Platelet Volume 7.8 fL (7.4-10.4); Platelet Count 143 K/mcL (140-440); RBC 2.93 M/mcL (4.50-5.90); Red Cell Distribution Width 20.4 % (11.5-14.5); WBC 8.3 K/mcL (4.5-11.0)
[2019-03-31 07:08] LABS: Bilirubin,Direct < 0.2 mg/dL (0.0-0.3); Chloride 99 mmol/L (96-108)
[2019-03-31 07:11] LABS: ALT/SGPT < 5 U/l (0-40); AST/SGOT 11 U/l (0-37); Albumin 2.5 gm/dL (3.2-5.2); Albumin/Globulin Ratio 0.7 (1.0-2.3); Alkaline Phosphatase 81 U/L (39-117); Bilirubin,Total 0.2 mg/dL (0.0-1.0); Blood Urea Nitrogen 23 mg/dl (8-23); Calcium 8.1 mg/dl (8.6-10.4); Carbon Dioxide 32 mmol/L (22-30); Globulin 3.8 gm/dL (2.2-3.7); Glomerular Filtration Rate 41; Glucose 112 mg/dL (70-105); Lactate Dehydrogenase 241 U/L (94-250); Phosphorous 3.8 mg/dL (2.7-4.5); Triglycerides 64 mg/dl (<150); Uric Acid 9.6 mg/dL (2.5-8.0)
[2019-03-31] MEDS: CARVEDILOL 3.125 MG TABLET PO SCH ×2 (07:30→16:55)
[2019-03-31] MEDS: metFORMIN 500 MG TABLET PO SCH ×2 (07:30→16:55)
[2019-03-31] MEDS: INSULIN LISPRO 1 UNIT/0.01 ML UNIT SQ SCH ×4 (07:33→21:25)
[2019-03-31] MEDS: HEPARIN 5,000 UNIT/ML VIAL SQ SCH ×2 (08:32→21:23)
[2019-03-31] MEDS: THIAMINE 100 MG TABLET PO SCH (08:33)
[2019-03-31] MEDS: DOCUSATE SODIUM 100 MG CAPSULE PO SCH ×2 (08:33→21:25)
[2019-03-31] MEDS: MULTIVIT,THER IRON,CA,FA & MIN 1 TABLET PO SCH ×2 (08:33→08:46)
[2019-03-31] MEDS: METOLAZONE 2.5 MG TABLET PO SCH (08:33)
[2019-03-31] MEDS: sitaGLIPtin 100 MG TABLET PO SCH (08:34)
[2019-03-31] MEDS ORDERED: cefTRIAXone 2 GM in DEXTROSE 5% IN WATER 50 ML IV SCH (09:00)
[2019-03-31 09:32] LABS: Anisocytosis 1+ (NONE SEEN); Eosinophils % (Manual) 4 % (0-7); Lymphocytes % 9 % (15-49); Monocytes % (Manual) 8 % (1-12); Platelet Estimate NORMAL (NORMAL); Polychromasia FEW (NONE SEEN); RBC Morphology ABNORM (NORMAL); Segmented Neutrophils % 79 % (38-78)
[2019-03-31] MEDS: LEVOFLOXACIN 750 MG/150 ML BAG IV SCH (09:58)
--- NOTE | 2019-03-31 13:45 | Internal Med Progress Note ---
Medical - PN: Subj Patient information: Note initiated : 03/31/19 at 1:41 pm Service Date, if different from initiated Date: [] Patient: Florencio Grace a 63 y/o M admitted on 03/29/19 for Shortness of breath. Chief Complaint: [] Interval history: Mr. Grace is a 63 year old M with NYHA class III systolic heart failure with EF 25% and recurrent pleural effusion acquiring monthly thoracentesis, type 2 DM with retinopathy, Rt BKA, obesity, HTN, history of PE on Coumadin, CKD stage III presents to [facility] ER with worsening shortness of breath along with fever of 100.8. Patient was in his baseline state of health until a day prior to presentation however this morning he woke up short of breath. He went to the pool but could not breathe or walk and was profoundly dyspneic even at rest. He subsequently presents to the ER for evaluation. Initial work-up was consistent with acute pulmonary edema with CHF exacerbation and pleural effusion along with a white count of over 14,000. Patient was started on antibiotics after cultures were drawn. Hospitalist service was consulted. At the time evaluation patient is fairly dyspneic. He was able to answer most of the questions in near full sentences. He endorses to yellow productive cough but denies sick contacts or missing his regular medication. He further denies high salt diet or NSAID intake. His last thoracentesis was a month ago. He follows up with primary care physician Buck valdes. He further denies diarrhea, headache, photophobia. Denies any stump wound redness but notices lymphedema and redness left lower extremity. 03/30-patient did well overnight. Diuresed well. Over 3200 cc net negative fluid balance. Improved shortness of breath. Now on room air. Feels close to baseline. Transfer to medical floor with continued diuresis. Possible discharge in 24 hours. White count down to 11.9. Remains afebrile. Creatinine 1.6. Improved lymphedema. 03/31-patient doing much better. Diuresing at 5000 cc negative. Continue PT OT. Patient wants to go home on discharge. Ongoing PT OT. White count down to 8.3. Hemoglobin 7.8. Creatinine 1.7. - Constitutional Vitals: Vital Signs Temp Pulse Resp BP Pulse Ox 97.5 F 65 20 130/71 93 03/31/19 12:59 03/31/19 12:59 03/31/19 12:59 03/31/19 12:59 03/31/19 12:59 Period Temp Pulse Resp BP Sys/Bush Pulse Ox Last 24 Hr 96.9 F-99.2 F 60-94 14-24 130-155/65-82 90-97 Intake and Output 03/30/19 03/31/19 03/31/19 21:59 05:59 13:59 Intake Total 360 460 200 Output Total 1200 1525 850 Balance -840 -1065 -650 Weight 314 lb 3.2 oz Intake & Output: Intake & Output 03/30/19 03/31/19 03/31/19 21:59 05:59 13:59 Intake Total 360 460 200 Output Total 1200 1525 850 Balance -840 -1065 -650 Weight 314 lb 3.2 oz Intake: IV 200 Rocephin 2 gm In Dextrose 5% in 50 Water 50 ml @ 100 mls/hr IV DAILY [facility] Rx#:[id number] Oral 360 460 Output: Urine Catheter Amount 1200 1525 850 Other: Meal Jello (2), Fruit cups(2) Percent of Meal Consumed 100% Feeding Ability Independent Urine Appearance Clear Clear Uretheral (Mayo) Clear Clear Urine Color Pale Pale Uretheral (Mayo) Pale Pale Urine Odor Normal Normal General appearance: no acute distress Exam: Alert oriented Improved lymphedema No anxiety Improved shortness of breath Medical - PN: Obj Da - Labs CBC & Chem 7: 03/31/19 04:00 03/31/19 04:00 Labs: Abnormal Lab Results 03/31/19 03/31/19 03/30/19 04:00 04:00 06:51 WBC RBC 2.93 L Hgb 7.8 L Hct 24.5 L POC Hct RDW 20.4 H Gran % Lymph % (Auto) Gran # Lymph # (Auto) Seg Neutrophils % 79 H Lymphocytes % 9 L RBC Morphology Abnorm A Polychromasia Few A Hypochromasia Anisocytosis 1+ A Microcytosis PT INR Carbon Dioxide 32 H 32 H Anion Gap Creatinine 1.7 H 1.6 H POC Creatinine Glucose 112 H POC Glucose Uric Acid 9.6 H 8.8 H Calcium 8.1 L 8.3 L POC WB Ioniz Calcium Lactate Dehydrogenase 273 H C-Reactive Protein NT-Pro-B Natriuret Pep Albumin 2.5 L 2.7 L Globulin 3.8 H 4.0 H Albumin/Globulin Ratio 0.7 L 0.7 L Urine Protein Hyaline Casts 03/30/19 03/29/19 03/29/19 06:51 10:24 10:23 WBC 11.9 H RBC 3.15 L Hgb 8.3 L Hct 26.4 L POC Hct RDW 20.7 H Gran % Lymph % (Auto) Gran # Lymph # (Auto) Seg Neutrophils % 91 H Lymphocytes % 2 L RBC Morphology Abnorm A Polychromasia Few A Hypochromasia Few A Anisocytosis 1+ A Microcytosis Few A PT 15.5 H INR 1.2 H Carbon Dioxide Anion Gap Creatinine POC Creatinine Glucose POC Glucose Uric Acid Calcium POC WB Ioniz Calcium Lactate Dehydrogenase C-Reactive Protein NT-Pro-B Natriuret Pep Albumin Globulin Albumin/Globulin Ratio Urine Protein 100 A Hyaline Casts 6 H 03/29/19 03/29/19 03/29/19 10:07 10:07 10:07 WBC RBC Hgb Hct POC Hct 29.0 L RDW Gran % Lymph % (Auto) Gran # Lymph # (Auto) Seg Neutrophils % Lymphocytes % RBC Morphology Polychromasia Hypochromasia Anisocytosis Microcytosis PT INR Carbon Dioxide 31 H Anion Gap 7.0 L Creatinine 1.4 H POC Creatinine 1.5 H Glucose 140 H POC Glucose 137 H Uric Acid Calcium POC WB Ioniz Calcium 1.14 L Lactate Dehydrogenase C-Reactive Protein 2.2 H NT-Pro-B Natriuret Pep 81867.0 H Albumin Globulin 4.2 H Albumin/Globulin Ratio 0.8 L Urine Protein Hyaline Casts 03/29/19 10:07 WBC 14.1 H RBC 3.57 L Hgb 9.3 L Hct 29.6 L POC Hct RDW 20.1 H Gran % 90.5 H Lymph % (Auto) 4.0 L Gran # 12.8 H Lymph # (Auto) 0.6 L Seg Neutrophils % Lymphocytes % RBC Morphology Polychromasia Hypochromasia Anisocytosis Microcytosis PT INR Carbon Dioxide Anion Gap Creatinine POC Creatinine Glucose POC Glucose Uric Acid Calcium POC WB Ioniz Calcium Lactate Dehydrogenase C-Reactive Protein NT-Pro-B Natriuret Pep Albumin Globulin Albumin/Globulin Ratio Urine Protein Hyaline Casts Meds: Medications Acetaminophen (Tylenol) 650 mg PO Q4-6HP PRN; Protocol PRN Reason: Per Pain Protocol/Fever > 101 Albuterol/Ipratropium (Duoneb) 3 ml NEB Q4HP PRN PRN Reason: Shortness Of Breath Atorvastatin Calcium (Lipitor) 10 mg PO HS [facility] Last Admin: 03/30/19 20:08 Dose: 10 mg Documented by: Bisacodyl (Dulcolax) 10 mg NH Q2-3DAYS PRN PRN Reason: Constipation Carvedilol (Coreg) 3.125 mg PO BIDCC [facility] Last Admin: 03/31/19 07:30 Dose: 3.125 mg Documented by: Dextrose (Dextrose 50%) 0 ml IV UD PRN PRN Reason: Hypoglycemia Diagnostic Test (Pha) (Accu-Chek) 1 each FS [facility] Last Admin: 03/31/19 11:42 Dose: 1 each Documented by: Docusate Sodium (Colace) 100 mg PO BID [facility] Last Admin: 03/31/19 08:33 Dose: 100 mg Documented by: Ferrous Sulfate (Ferrous Sulfate) 650 mg PO HS [facility] Last Admin: 03/30/19 20:09 Dose: 650 mg Documented by: Furosemide (Lasix) 40 mg IV Q8 [facility] Last Admin: 03/31/19 06:02 Dose: 40 mg Documented by: Glucose (Insta-Glucose) 15 gm PO PRN PRN PRN Reason: Hypoglycemia Heparin Sodium (Porcine) (Heparin) 5,000 unit SQ Q12 [facility] Last Admin: 03/31/19 08:32 Dose: 5,000 unit Documented by: Levofloxacin (Levaquin) 750 mg in 150 mls @ 100 mls/hr IV DAILY [facility]; Protocol Last Infusion: 03/31/19 11:41 Dose: Infused Documented by: Magnesium Sulfate (Magnesium Sulfate) 2 gm in 50 mls @ 50 mls/hr IV UD PRN PRN Reason: MG = or < 1.7 Acetaminophen (Ofirmev) 650 mg in 65 mls @ 130 mls/hr IV Q6HP PRN; Protocol PRN Reason: Per Pain Protocol/Fever > 101 Insulin Glargine (Lantus) 60 unit SQ [facility] Last Admin: 03/30/19 20:12 Dose: 60 units Documented by: Insulin Human Lispro (Humalog) 0 unit SQ [facility]; Protocol Last Admin: 03/31/19 11:43 Dose: Not Given Documented by: Iron Carb/Multivit/Pinckard/Folic Acid (Multivitamin W/Minerals) 1 tab PO DAILY [facility] Last Admin: 03/31/19 08:46 Dose: 1 tab Documented by: Loperamide HCl (Imodium) 2 mg PO Q48H PRN PRN Reason: Diarrhea Melatonin (Melatonin 3mg Tablet) 3 mg PO HSP PRN PRN Reason: Insomnia Last Admin: 03/30/19 20:23 Dose: 3 mg Documented by: Metformin HCl (Glucophage) 1,000 mg PO BIDCC [facility] Last Admin: 03/31/19 07:30 Dose: 1,000 mg Documented by: Metolazone (Zaroxolyn) 2.5 mg PO DAILY@0830 [facility] Last Admin: 03/31/19 08:33 Dose: 2.5 mg Documented by: Metoprolol Succinate (Toprol Xl) 50 mg PO [facility] Last Admin: 03/30/19 20:08 Dose: 50 mg Documented by: Olmesartan (Benicar) 40 mg PO [facility] Last Admin: 03/30/19 20:09 Dose: 40 mg Documented by: Ondansetron HCl (Zofran Odt) 4 mg SL Q4-6HP PRN; Protocol PRN Reason: Nausea And Vomiting Ondansetron HCl (Zofran) 4 mg IV Q4-6HP PRN; Protocol PRN Reason: Nausea And Vomiting Polyethylene Glycol (Miralax) 17 gm PO DAILYP PRN PRN Reason: Constipation Potassium Chloride (Klor-Con) 40 meq PO DAILYP PRN PRN Reason: K+ < 3.5 Senna/Docusate Sodium (Senna Plus Tablet) 1 tab PO [facility] Last Admin: 03/30/19 19:58 Dose: Not Given Documented by: Sitagliptin Phosphate (Januvia) 100 mg PO DAILY [facility] Last Admin: 03/31/19 08:34 Dose: 100 mg Documented by: Sodium Chloride (Saline Flush) 10 ml IV Q8 [facility] Last Admin: 03/31/19 06:03 Dose: 10 ml Documented by: Tamsulosin HCl (Flomax) 0.4 mg PO [facility] Last Admin: 03/30/19 20:10 Dose: 0.4 mg Documented by: Thiamine HCl (Vitamin B1) 100 mg PO DAILY [facility] Last Admin: 03/31/19 08:33 Dose: 100 mg Documented by: Torsemide (Demadex) 20 mg PO HS [facility] Last Admin: 03/30/19 20:09 Dose: 20 mg Documented by: Medical - PN: A/P - Time Spent With Patient Total time spent is greater than 50% in coordination of care (as documented) at patient's floor/unit and/or counseling patient: 15 - 24 minutes (1) Heart failure, systolic, with acute decompensation Status: Acute Assessment and plan: * Acute decompensated heart failure with pulmonary edema/pleural effusions. Clinically resolved with aggressive diuresis. Now on room air. Last known EF 25%. Discussed the importance of continued diuretic use as patient intermittently stops taking diuretics. Continue beta-medhat/ARB * Sepsis with elevated white count likely secondary to pneumonia. Continue management per guidelines, pancultures, broad antibiotics. * Hypokalemia continue replacement * Pneumonia likely community-acquired. White count normalized. Continueantibiotic coverage. * Hypoxic respiratory failure secondary above-continue supplemental oxygen/noninvasive mechanical ventilation if indicated * Chronic renal disease currently at baseline. Creatinine 1.6 * DM type II -well-controlled on home medications * PVD/history of BKA. Stump care * History of CAD continue statin/isosorbide/anticoagulation * History of PE continue anticoagulation * History of BPH home dose Flomax * Hyperlipidemia on statin * Full code Plan * Continue diuresis/CHF optimization * Replace potassium * Pre-existing medical condition management home meds * PT OT nutrition support * Discharge planning likely in 24 hours Current Visit: Yes Medical - PN: Qual - VTE Deep Vein Thrombosis/Pulmonary Embolism Present on Admission: No
[2019-03-31] MEDS: BUDESONIDE 0.5 MG/2 ML AMPUL.NEB NEB SCH (19:03)
[2019-03-31] MEDS: TORSEMIDE 10 MG TABLET PO SCH (21:24)
[2019-03-31] MEDS: INSULIN GLARGINE, HUMAN 1 UNIT/0.01 ML SQ SCH (21:24)
[2019-03-31] MEDS: OLMESARTAN MEDOXOMIL 20 MG TABLET PO SCH (21:24)
[2019-03-31] MEDS: METOPROLOL SUCCINATE 50 MG TAB.XL.24H PO SCH (21:24)
[2019-03-31] MEDS: ATORVASTATIN 20 MG TABLET PO SCH (21:25)
[2019-03-31] MEDS: TAMSULOSIN 0.4 MG CAPSULE PO SCH (21:25)
[2019-03-31] MEDS: FERROUS SULFATE 325 MG TABLET PO SCH (21:25)
[2019-03-31] MEDS: SENNOSIDES/DOCUSATE SODIUM 1 TAB TABLET PO SCH (21:25)
[2019-04-01 05:30] LABS: Hematocrit 28.3 % (41.0-55.0); Hemoglobin 9.1 g/dL (13.5-16.5); Mean Corpuscular HGB Conc 32.2 g/dL (31.0-36.0); Mean Platelet Volume 7.9 fL (7.4-10.4); Platelet Count 186 K/mcL (140-440); RBC 3.41 M/mcL (4.50-5.90); Red Cell Distribution Width 19.9 % (11.5-14.5); WBC 8.9 K/mcL (4.5-11.0)
[2019-04-01] MEDS: 0.9 % SODIUM CHLORIDE 10 ML SYRINGE IV SCH (05:57)
[2019-04-01] MEDS: FUROSEMIDE 40 MG/4 ML VIAL IV SCH (05:59)
[2019-04-01 06:19] LABS: ALT/SGPT 6 U/l (0-40); AST/SGOT 15 U/l (0-37); Albumin 2.8 gm/dL (3.2-5.2); Albumin/Globulin Ratio 0.6 (1.0-2.3); Alkaline Phosphatase 84 U/L (39-117); Bilirubin,Direct < 0.2 mg/dL (0.0-0.3); Bilirubin,Total 0.2 mg/dL (0.0-1.0); Blood Urea Nitrogen 25 mg/dl (8-23); Calcium 8.7 mg/dl (8.6-10.4); Carbon Dioxide 32 mmol/L (22-30); Globulin 4.4 gm/dL (2.2-3.7); Glomerular Filtration Rate 39; Glucose 94 mg/dL (70-105); Lactate Dehydrogenase 223 U/L (94-250); Phosphorous 3.4 mg/dL (2.7-4.5); Triglycerides 83 mg/dl (<150); Uric Acid 11.1 mg/dL (2.5-8.0)
[2019-04-01 06:20] LABS: Chloride 94 mmol/L (96-108)
[2019-04-01] MEDS: metFORMIN 500 MG TABLET PO SCH (07:31)
[2019-04-01] MEDS: CARVEDILOL 3.125 MG TABLET PO SCH (07:32)
[2019-04-01] MEDS: METOLAZONE 2.5 MG TABLET PO SCH (07:32)
[2019-04-01] MEDS: DOCUSATE SODIUM 100 MG CAPSULE PO SCH (07:37)
[2019-04-01] MEDS: INSULIN LISPRO 1 UNIT/0.01 ML UNIT SQ SCH ×2 (07:37→11:19)
[2019-04-01 08:01] LABS: Anisocytosis 1+ (NONE SEEN); Band Neutrophils % 1 % (0-10); Eosinophils % (Manual) 3 % (0-7); Lymphocytes % 10 % (15-49); Monocytes % (Manual) 6 % (1-12); Nucleated Red Blood Cells 2 % (0-0); Platelet Estimate NORMAL (NORMAL); Polychromasia FEW (NONE SEEN); RBC Morphology ABNORM (NORMAL); Segmented Neutrophils % 80 % (38-78)
[2019-04-01] MEDS: MULTIVIT,THER IRON,CA,FA & MIN 1 TABLET PO SCH (09:28)
[2019-04-01] MEDS: sitaGLIPtin 100 MG TABLET PO SCH (09:28)
[2019-04-01] MEDS: THIAMINE 100 MG TABLET PO SCH (09:28)
[2019-04-01] MEDS: LEVOFLOXACIN 750 MG/150 ML BAG IV SCH (09:28)
[2019-04-01] MEDS: HEPARIN 5,000 UNIT/ML VIAL SQ SCH (10:06)
--- NOTE | 2019-04-01 12:12 | Discharge Summary ---
Medical - DS: Prov Patient information: Note initiated : 04/01/19 at 12:09 pm Service Date, if different from initiated Date: [] Patient: Florencio Grace 63 y/o M admitted on 03/29/19 for Shortness of breath. Chief Complaint: [] Date of admission: 03/29/19 14:21 Discharge date: 04/01/19 Primary care physician: Buck Talley Consults: 03/29/19 Consult to Physician [CONS] Stat Comment: Consulting Provider: Isidro Olmos Reason For Exam: Physician to Consult Medical - DS: Meds - Discharge Medications Prescriptions: Levofloxacin [Levaquin] 500 mg PO DAILY #4 tab Transmission Status: Pending to [facility] 2005 Active and Home Medications: Home Medications Tamsulosin [Flomax] 0.4 mg PO HS 03/08/18 [History Confirmed 03/29/19 Last Taken 03/28/19] insulin glargine 100) 100 unit/mL subcutaneous solution 60 unit SUB-Q HS unit 03/22/18 [History Confirmed 03/29/19 Last Taken 03/28/19] atorvastatin 10 mg tablet 10 mg PO HS 03/23/18 [History Confirmed 03/29/19 Last Taken 03/28/19] Loperamide [Imodium] 2 mg PO Q48H PRN 11/24/18 [History Confirmed 03/29/19 Last Taken Unknown] Torsemide [Demadex] 20 mg PO HS 01/30/19 [History Confirmed 03/29/19 Last Taken Unknown] Ferrous Sulfate [Iron] 650 mg PO HS 03/08/19 [History Confirmed 03/29/19 Last Taken 03/28/19] Ibuprofen/Diphenhydramine Cit [Advil Pm Caplet] 1 each PO HS PRN 03/08/19 [History Confirmed 03/29/19 Last Taken 03/28/19] Valsartan [Diovan] 320 mg PO HS 03/08/19 [History Confirmed 03/29/19 Last Taken 03/28/19] metFORMIN HCL [Glucophage] 1,000 mg PO BID 03/08/19 [History Confirmed 03/29/19 Last Taken 03/28/19] Carvedilol [Coreg] 3.125 mg PO BID 03/29/19 [History Confirmed 03/29/19 Last Taken 03/28/19] Metoprolol Succinate [Toprol Xl] 50 mg PO HS 03/29/19 [History Confirmed 03/29/19 Last Taken 03/28/19] Oxymetazoline HCl [Anefrin] 2 - 3 spray IRIS BID PRN 03/29/19 [History Confirmed 03/29/19 Last Taken Unknown] Levofloxacin [Levaquin] 500 mg PO DAILY #4 tab 04/01/19 [Rx Last Taken Unknown] Medical - DS: Hosp Hospital Course: Discharge diagnosis * Acute decompensated heart failure with pulmonary edema/pleural effusions. Secondary to poor compliance to medication. Patient intermittently stopped taking his Lasix due to frequent urination. Aggressive diuresis with over 10,000 cc net negative fluid balance. Fully resolved. Now on room air. Last known EF 25%. Discussed the importance of continued diuretic use. Continue beta-medhat/ARB * Sepsis with elevated white count likely secondary to pneumonia. Clinically resolved on antibiotics * Bilateral pneumonia continue additional 4 days Levaquin * Hypokalemia resolved with replacement * Hypoxic respiratory failure secondary above-resolved with aggressive diuresis and resolution of pulmonary edema now on room air * Weakness and deconditioning-continue aggressive rehab/PT OT at SNF * Chronic renal disease currently at baseline. * DM type II -continue home regimen * PVD/history of BKA. [facility] care * History of CAD continue statin/isosorbide/anticoagulation * History of PE continue anticoagulation * History of BPH home dose Flomax * Hyperlipidemia on statin Brief hospital course Mr. Grace is a 63 year old M with NYHA class III systolic heart failure with EF 25% and recurrent pleural effusion acquiring monthly thoracentesis, type 2 DM with retinopathy, Rt BKA, obesity, HTN, history of PE on Coumadin, CKD stage III [facility] with worsening shortness of breath along with fever of 100.8. Patient was in his baseline state of health until a day prior to presentation however this morning he woke up short of breath. He went to the pool but could not breathe or walk and was profoundly dyspneic even at rest. He subsequently presents to the ER for evaluation. Initial work-up was consistent with acute pulmonary edema with CHF exacerbation and pleural effusion along with a white count of over 14,000. Patient was started on antibiotics after cultures were drawn. Hospitalist service was consulted. At the time evaluation patient is fairly dyspneic. He was able to answer most of the questions in near full sentences. He endorses to yellow productive cough but denies sick contacts or missing his regular medication. He further denies high salt diet or NSAID intake. His last thoracentesis was a month ago. He follows up with primary care physician Buck valdes. He further denies diarrhea, headache, photophobia. Denies any stump wound redness but notices lymphedema and redness left lower extremity. 03/30-patient did well overnight. Diuresed well. Over 3200 cc net negative fluid balance. Improved shortness of breath. Now on room air. Feels close to baseline. Transfer to medical floor with continued diuresis. Possible discharge in 24 hours. White count down to 11.9. Remains afebrile. Creatinine 1.6. Improved lymphedema. 03/31-patient doing much better. Diuresing at 5000 cc negative. Continue PT OT. Patient wants to go home on discharge. Ongoing PT OT. White count down to 8.3. Hemoglobin 7.8. Creatinine 1.7. 04/01-patient doing well. No overnight events. No concerns per staff. Diuresed over 10,000 cc net negative with a great response to usual diuretics. Discharging to SNF with advise to continue daily weight monitoring and using Lasix at regular intervals without missing doses. Also advised to follow with primary care physician/brokerage branch manager on discharge. Continue aggressive PT OT at SNF Discharge diagnosis: . - Time Spent with Patient Total time spent providing and/or coordinating discharge services: Greater than 30 minutes Medical - DS: Exam - Constitutional Vitals: Vital Signs Temp Pulse Resp BP Pulse Ox 04/01/19 11:46 98.1 F 18 152/73 92 04/01/19 09:00 98.1 F 18 140/60 96 04/01/19 04:01 97.9 F 82 18 129/60 92 03/31/19 23:08 98.1 F 69 16 131/56 97 03/31/19 19:37 97.2 F 72 20 125/71 98 03/31/19 17:00 97.1 F 63 20 137/75 96 03/31/19 12:59 97.5 F 65 20 130/71 93 Intake and Output 03/31/19 04/01/19 04/01/19 21:59 05:59 13:59 Intake Total 320 240 Output Total 2150 2650 650 Balance -0493 -3841 -598 Intake: IV 200 Rocephin 2 gm In Dextrose 5% in 50 Water 50 ml @ 100 mls/hr IV DAILY [facility] Rx#:[id number] Oral 120 240 Output: Urine Catheter Amount 2150 2650 500 Void Amount 150 Other: Meal Dinner Breakfast Percent of Meal Consumed 100% 75% Feeding Ability Assist with Tray Set Up Independent Urine Appearance Clear Clear Clear Uretheral (Mayo) Clear Urine Color Dark Yellow Straw Pale Uretheral (Mayo) Pale Stool Size Moderate Stool Color Brown Stool Consistency Liquid Watery # Bowel Movements 1 Weight 295 lb Medical - DS: Data Labs on day of discharge: Labs from last 24 hours 04/01/19 04/01/19 04:10 04:10 WBC 8.9 RBC 3.41 L Hgb 9.1 L Hct 28.3 L MCV 83.0 MCH 26.7 MCHC 32.2 RDW 19.9 H Plt Count 186 MPV 7.9 Total Counted 100 Seg Neutrophils % 80 H Band Neutrophils % 1 Lymphocytes % 10 L Monocytes % (Manual) 6 Eosinophils % (Manual) 3 Nucleated RBCs 2 H Platelet Estimate Normal RBC Morphology Abnorm A Polychromasia Few A Anisocytosis 1+ A Sodium 141 Potassium 3.2 L Chloride 94 L Carbon Dioxide 32 H Anion Gap 15.0 BUN 25 H Creatinine 1.8 H GFR Calculation 39 Glucose 94 Uric Acid 11.1 H Calcium 8.7 Phosphorus 3.4 Magnesium 1.6 Total Bilirubin 0.2 Direct Bilirubin < 0.2 GGT 30 AST 15 ALT 6 Alkaline Phosphatase 84 Lactate Dehydrogenase 223 Total Protein 7.2 Albumin 2.8 L Globulin 4.4 H Albumin/Globulin Ratio 0.6 L Triglycerides 83 Preliminary micro results at discharge 03/29/19 16:19 Blood Culture - Preliminary Blood 03/29/19 13:39 Blood Culture - Preliminary Blood Medical - DS: A/P - Patient/Caregiver Discharge Instructions Activity: increase activity as tolerated Diet: Renal/Consistent Carbs Additional Instructions: Daily weight monitoring and take additional 40 Lasix if weight gain over 4 pounds above baseline Follow-up PCP in 5 to 7 days Follow-up brokerage branch manager in 1 to 2 weeks Continue aggressive PT OT at [facility] Prescriptions: Levofloxacin [Levaquin] 500 mg PO DAILY #4 tab Transmission Status: [facility] - Problem Maintenance (1) Heart failure, systolic, with acute decompensation Status: Acute - Follow up Plan Follow up with: Hood Talley MD [Primary Care Provider] - Disposition: Xfer SNF Prognosis: Fair Rehab Potential: Fair I certify that the patient requires SNF services: Yes Overall status at discharge: patient is progressing back to baseline Medical - DS: Qual - VTE Deep Vein Thrombosis/Pulmonary Embolism Present on Admission: No
== END 2019-04-01 13:35 | DRG 291 ==
LOC: ED 09:40 → ICU 14:21 → MEDSUR 03-30 18:06
PROVIDERS: ADMIT Internal Medicine; ATTEND Internal Medicine

== ENCOUNTER 2019-06-15 15:20 | Inpatient (IN) ==
--- NOTE | 2019-06-15 15:50 | Emergency Department Note ---
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 Patient tells me he has had the symptoms for approximately 1 week. He is rather ill gentleman with a known history of both CHF, chronic kidney disease, type 2 diabetes. He was recently started on spironolactone 50 mg daily. He continues to take this in conjunction with his torsemide 10 mg daily. He denies any preceding illness, fever, sweats, chills. He denies any sinus congestion, runny nose, or cough. 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 He admits to baseline shortness of breath that worsens with any form of exertion. He denies retrosternal chest pain or palpitations. He admits to significant orthopnea and usually sleeps in a recliner. He denies abdominal pain, nausea, area. He denies focal weakness. A review of his active problems does show the following: Weakness, pleural effusion secondary to CHF, anemia of chronic disease, hypoxia, hypokalemia, CHF, immediate acquired pneumonia, long-term use of 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, dermatitis, lower extremity edema, morbid obesity, pulmonary embolism, hypertension, type 2 diabe luc, colon cancer, and right sided below the knee amputee. - Related Data Home Medications Medication Instructions Recorded Confirmed Tamsulosin [Flomax] 0.4 mg PO HS 03/08/18 06/15/19 metFORMIN HCL [Glucophage] 1,000 mg PO BID 03/08/19 06/15/19 Metoprolol Succinate [Toprol Xl] 50 mg PO HS 03/29/19 06/15/19 Oxymetazoline HCl [Anefrin] 2 - 3 spray IRIS BID PRN 03/29/19 06/15/19 atorvastatin 10 mg tablet 10 mg PO QDAY 05/05/19 06/15/19 ferrous sulfate 325 mg (65 mg 325 mg PO HS tab 05/05/19 06/15/19 iron) tablet spironolactone 50 mg tablet 50 mg PO QAM 05/05/19 06/15/19 torsemide 10 mg tablet 10 mg PO QAM tab 05/05/19 06/15/19 insulin glargine 100 unit/mL 40 unit SUB-Q HS unit 06/15/19 06/15/19 subcutaneous solution loperamide 2 mg capsule 2 mg PO Q48H PRN 06/15/19 06/15/19 Previous Rx's Medication Instructions Recorded Captopril [Capoten] 12.5 mg PO BID 30 Days #60 tab 05/23/19 Allergies Allergy/AdvReac Type Severity Reaction Status Date / Time No Known Drug Allergies Allergy Verified 06/15/19 15:21 Review of Systems All systems ED: reviewed and negative except as stated. Past Medical History - Past Medical History Medical history: Reports: CAD (coronary artery disease) (denied 03-18-19), CHF, DM, hyperlipidemia, hypertension, peripheral artery disease (denied 03-18-19), pulmonary embolus (denied 03-18-19), renal disease. Denies: atrial fibrillation, DVT, myocardial infarction, MITCHELL, pneumonia, PUD Surgical history ED: Reports: orthopedic, other, other (right ankle surgery, bka) - Social History smoking status: Never smoker Alcohol use: Reports: None Drug use: Reports: none. Denies: marijuana Physical Exam Limitations: physical limitation (Patient is morbidly obese sitting upright on the. It is some difficulty to have him even laying semi-recumbent.) General appearance: alert, in no apparent distress, other (Well-developed, well- nourished, morbidly obese, chronically ill-appearing 63-year-old male patient in no acute respiratory distress. He is speaking in full complete sentences in the emergency department. He is not using accessory muscles.) Head: atraumatic, normocephalic Eye: Present: normal appearance, PERRL, EOMI. Absent: scleral icterus, conjunctival injection ENT: Present: normal oropharynx, mucous membranes moist Neck: Present: trachea midline. Absent: lymphadenopathy, thyromegaly Chest: Present: symmetric chest wall rise Respiratory: Present: rales/crackles (Crackles to the bases.), decreased breath sounds (Decreased breath sounds throughout.). Absent: normal lung sounds bilaterally, respiratory distress, wheezes, stridor, accessory muscle use, prolonged expiratory phase Cardiovascular: Present: regular rate, normal rhythm. Absent: systolic murmur, diastolic murmur Extremities: Present: full ROM, tenderness (Tenderness to palpation to the calf just below the knee joint.), pedal edema (Considerable +3 pitting edema from ankles to just below knee joint to the left lower extremity.), pretibial edema, other (Below the knee amputation towards the right.). Absent: normal capillary refill (Less than 3 seconds) Back: Absent: tenderness Neurological: Present: alert, oriented X3 Psychiatric: Present: normal mood, flat affect Skin: Present: warm, dry Course Course Narrative: Patient was brought into the emergency department and a history and physical exam was performed. Saline lock was established and laboratory studies were drawn. Portable chest x-ray was ordered and reviewed. A review of his laboratory studies show the following: CBC WBC 7.1, RBC 3.7, hemoglobin 11.1, hematocrit 35.1, platelets 135. CMP creatinine 1.5, glucose 124, all others normal limits. proBNP 25,391 (this is a slight decrease from previous on 05/23). Portable chest x-ray showed moderate CHF. Moderate bilateral pleural effusions with bibasilar airspace disease most likely atelectasis. After reviewing this data patient was given 80 mg of Lasix IVP. Mayo catheter was placed to calculate his input/output. With the patient's current CHF exacerbation and need for diuresis it was thought best the patient be managed as an inpatient. With this in mind, I reached out to the hospitalist (Dr. Regalado) I discussed the case with him. At this time Dr. Regalado is going to admit the patient for CHF exacerbation. All further treatment decisions, modalities, and ultimate patient disposition will be carried out by Dr. Leroy. Vital Signs Temperature 97.5 F 06/15/19 15:21 Pulse Rate 80 06/15/19 15:21 Respiratory Rate 22 06/15/19 15:21 Blood Pressure 134/69 06/15/19 15:21 Pulse Oximetry (%) 95 06/15/19 15:21 Temperature 97.5 F 06/15/19 15:21 Pulse Rate 70 06/15/19 16:46 Respiratory Rate 27 H 06/15/19 17:17 Blood Pressure 155/77 06/15/19 17:16 Pulse Oximetry (%) 95 06/15/19 16:46 Shortness of Breath/Dyspnea - Lab Data Lab results reviewed: Yes I reviewed the patient's lab results. Result diagrams: 06/15/19 15:59 06/15/19 15:59 Lab Results 06/15/19 06/15/19 Range/Units 15:59 15:59 WBC 7.1 (4.50-11.00) K/mcL RBC 3.87 L (4.63-6.08) M/mcL Hgb 11.1 L (13.7-17.5) g/dL Hct 35.1 L (40.1-51.0) % POC Hct 34.0 L (41.0-55.0) % MCV 90.7 (80.0-100.0) fL MCH 28.7 (26.0-34.0) pg MCHC 31.6 (31.0-36.0) g/dL RDW 19.7 H (11.5-14.5) % Plt Count 135 L (140-440) K/mcL MPV 10.3 (7.4-10.4) fL Gran % 74.4 (38.0-78.0) % Lymph % (Auto) 14.8 L (15.5-49.0) % [place] % (Auto) 8.5 (1.0-12.0) % Eos % (Auto) 1.6 (0.0-7.0) % Baso % (Auto) 0.7 (0.0-2.0) % Gran # 5.25 (1.80-8.00) K/mcL Lymph # (Auto) 1.04 L (1.50-4.80) K/mcL [place] # (Auto) 0.60 (0.10-0.90) K/mcL Eos # (Auto) 0.11 (0.00-0.70) K/mcL Baso # (Auto) 0.05 (0.00-0.30) K/mcL POC Sodium 143 (133-145) mmol/L Sodium 144 (133-145) mmol/L POC Potassium 3.7 (3.3-5.1) mmol/L Potassium 3.8 (3.3-5.1) mmol/L POC Chloride 107 (96-108) mmol/L Chloride 106 (96-108) mmol/L Carbon Dioxide 25 (22-30) mmol/L POC Total CO2 26 (22-30) mmol/L Anion Gap 13.0 (8-16) POC BUN 18 (8-23) mg/dl BUN 18 (8-23) mg/dl Creatinine 1.5 H (0.7-1.2) mg/dl POC Creatinine 1.5 H (0.7-1.2) mg/dl GFR Calculation 48 Glucose 124 H (70-105) mg/dL POC Glucose 123 H (70-105) mg/dL Calcium 8.6 (8.6-10.4) mg/dl POC WB Ioniz Calcium 1.08 L (1.16-1.32) mmol/L Total Bilirubin 0.4 (0.0-1.0) mg/dL AST 17 (0-37) U/l ALT 12 (0-40) U/l Alkaline Phosphatase 98 (39-117) U/L NT-Pro-B Natriuret Pep 76036.0 H (0-125) pg/ml Total Protein 6.9 (5.9-8.4) gm/dL Albumin 3.2 (3.2-5.2) gm/dL Globulin 3.7 (2.2-3.7) gm/dL Albumin/Globulin Ratio 0.9 L (1.0-2.3) - Radiology Data Ordering Physician: Sean Medina PA-C Date of Service: 06/15/19 Procedure(s): XR chest 1V portable Accession Number(s): [id number] CLINICAL INFORMATION: 63 y/o M. SOB. Fluid retension. Hx of CHF, T2DM, COMPARISON: 05/23/2019 FINDINGS: Heart is increased in size now moderately enlarged. Mediastinum is unremarkable. Pulmonary vessels are mildly distended is mild peribronchial vascular edema. Moderate bilateral pleural effusions with moderate bibasilar airspace disease likely compressive atelectasis. IMPRESSION: Moderate CHF. Moderate bilateral pleural effusions with bibasilar airspace disease - most likely atelectasis Interpreted and Authenticated by: Elmo Youngblood 06/15/19 - EKG Data EKG attestation: Yes I reviewed and interpreted this EKG., Yes There are no EKG findings of acute coronary syndrome Disposition Pt seen by METAL FURNACE OPERATOR/PA only: Yes Clinical Impression: CKD (chronic kidney disease) stage 3, GFR 30-59 ml/min, Morbid obesity with BMI of 45.0-49.9, adult CHF, acute on chronic Qualifiers: Heart failure type: combined systolic and diastolic Qualified Code(s): I50.43 - Acute on chronic combined systolic (congestive) and diastolic (congestive) heart failure Disposition: Xfer As Inpt ([facility]) Condition: Fair Additional Instructions: Patient is going to be admitted to the hospital under the care of the hospitalist (Dr. Regalado). All further treatment decisions, modalities, and ultimate patient disposition be carried out by the hospitalist. Referrals: Hayley Moore MD [Primary Care Provider] -
[2019-06-15 16:10] LABS: POC Blood Urea Nitrogen 18 mg/dl (8-23); POC CO2 26 mmol/L (22-30); POC Calcium, Ionized 1.08 mmol/L (1.16-1.32); POC Chloride 107 mmol/L (96-108); POC Creatinine 1.5 mg/dl (0.7-1.2); POC Glucose, Random 123 mg/dL (70-105); POC Potassium 3.7 mmol/L (3.3-5.1); POC Sodium 143 mmol/L (133-145)
[2019-06-15] MEDS ORDERED: FUROSEMIDE 100 MG/10 ML VIAL IV ONE ×2 (16:30→16:35)
--- NOTE | 2019-06-15 16:32 | XRay Report ---
CLINICAL INFORMATION: 63 y/o M. SOB. Fluid retension. Hx of CHF, T2DM, COMPARISON: 05/23/2019 FINDINGS: Heart is increased in size now moderately enlarged. Mediastinum is unremarkable. Pulmonary vessels are mildly distended is mild peribronchial vascular edema. Moderate bilateral pleural effusions with moderate bibasilar airspace disease likely compressive atelectasis. IMPRESSION: Moderate CHF. Moderate bilateral pleural effusions with bibasilar airspace disease - most likely atelectasis Interpreted and Authenticated by: Elmo Youngblood 06/15/19
[2019-06-15 16:43] LABS: Basophils # (Auto) 0.05 K/mcL (0.00-0.30); Basophils % (Auto) 0.7 % (0.0-2.0); Eosinophils # (Auto) 0.11 K/mcL (0.00-0.70); Eosinophils % (Auto) 1.6 % (0.0-7.0); Granulocytes % (Auto) 74.4 % (38.0-78.0); Hematocrit 35.1 % (40.1-51.0); Hemoglobin 11.1 g/dL (13.7-17.5); Lymphocytes # (Auto) 1.04 K/mcL (1.50-4.80); Lymphocytes % (Auto) 14.8 % (15.5-49.0); Mean Cell Volume 90.7 fL (80.0-100.0); Mean Corpuscular HGB Conc 31.6 g/dL (31.0-36.0); Mean Platelet Volume 10.3 fL (7.4-10.4); Monocytes % (Auto) 8.5 % (1.0-12.0); Platelet Count 135 K/mcL (140-440); RBC 3.87 M/mcL (4.63-6.08); Red Cell Distribution Width 19.7 % (11.5-14.5); WBC 7.1 K/mcL (4.50-11.00)
[2019-06-15 17:03] LABS: ALT/SGPT 12 U/l (0-40); AST/SGOT 17 U/l (0-37); Albumin 3.2 gm/dL (3.2-5.2); Albumin/Globulin Ratio 0.9 (1.0-2.3); Alkaline Phosphatase 98 U/L (39-117); Bilirubin,Total 0.4 mg/dL (0.0-1.0); Blood Urea Nitrogen 18 mg/dl (8-23); Calcium 8.6 mg/dl (8.6-10.4); Carbon Dioxide 25 mmol/L (22-30); Chloride 106 mmol/L (96-108); Globulin 3.7 gm/dL (2.2-3.7); Glomerular Filtration Rate 48; Glucose 124 mg/dL (70-105)
--- NOTE | 2019-06-15 17:48 | Internal Med History&Physical ---
Medical - H&P: HPI Patient information: Note initiated : 06/15/19 at 5:45 pm Service Date, if different from initiated Date: [] Patient: Florencio Grace 63 y/o M admitted on for Shortness of breath. Chief Complaint: [] History of present illness: Mr. Grace is a 63 year old M 63-year-old male with kidney disease presents to his industrial chemicals supervisor office this morning for routine appointment. He appeared to be labored in his breathing and significant increased edema and weight gain. Thus his industrial chemicals supervisor sent him into the ED for likely admission for CHF. Patient states that feels as edema has been gradually progressing over the past month. He feels more short of breath than usual. He has a chronic cough from sinus drainage but does not feel it is any different than usual. Has occasional diarrhea which is chronic. In the ED was evaluated had a chest x-ray which showed edema and effusions. Al so received thoracentesis in the past for effusion Patient was given 80 of IV Lasix in the ED. Review of Systems: Pertinent positives as above. Denies headache/fever/chills/nausea/vomiting/chest or abdominal pain/. 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 of 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 (Chronic) Pleural effusion (Acute) Congestive heart failure (Chronic) Dermatitis of lower extremity (Chronic) Pedal edema (Chronic) Hypercoagulable state (Chronic) CKD (chronic kidney disease) stage 3, GFR 30-59 ml/min (Chronic) Hyperphosphatemia (Acute) Non compliance with medical treatment (Chronic) Morbid obesity with BMI of 45.0-49.9, adult (Chronic) Anemia (Chronic) Pulmonary embolism (Resolved) Hypertension (Chronic) Diabetes (Chronic) Colon cancer (Resolved) SOB (shortness of breath) (Chronic) JERMAN (acute kidney injury) (Resolved) Ankle fracture (Resolved) Chronic wound of extremity (Resolved) Community acquired pneumonia (Resolved) Heart failure with acute decompensation, type unknown (Resolved) Localized edema due to fluid overload (Resolved) Osteomyelitis of ankle (Resolved) Pulmonary edema (Resolved) Past Surgical History (Last Updated 03/18/19 @ 09:18 by Christiano Burrup, DO) Hx of right BKA (Acute) History of open reduction and internal fixation (ORIF) procedure (Chronic) History of orthopedic surgery (Chronic) History of partial colectomy (Chronic) History of total replacement of right ankle (Chronic) Family History (Last Reviewed 02/14/19 @ 12:04 by Joanna Manzo MD) Mother Bruising Bleeding Clotting disorder Father Prostate cancer Social History (Last Updated 06/15/19 @ 13:32 by Joanna Manzo MD) 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 Denies tobacco Denies alcohol use Uses a walker to ambulate Lives by himself Medical - H&P: Meds Home Medications Medication Instructions Recorded Confirmed Type Tamsulosin [Flomax] 0.4 mg PO HS 03/08/18 06/15/19 History metFORMIN HCL [Glucophage] 1,000 mg PO BID 03/08/19 06/15/19 History Metoprolol Succinate [Toprol Xl] 50 mg PO HS 03/29/19 06/15/19 History Oxymetazoline HCl [Anefrin] 2 - 3 spray IRIS BID PRN 03/29/19 06/15/19 History atorvastatin 10 mg tablet 10 mg PO QDAY 05/05/19 06/15/19 History ferrous sulfate 325 mg (65 mg 325 mg PO HS tab 05/05/19 06/15/19 History iron) tablet spironolactone 50 mg tablet 50 mg PO QAM 05/05/19 06/15/19 History torsemide 10 mg tablet 10 mg PO QAM tab 05/05/19 06/15/19 History Captopril [Capoten] 12.5 mg PO BID 30 Days #60 tab 05/23/19 06/15/19 Rx insulin glargine 100 unit/mL 40 unit SUB-Q HS unit 06/15/19 06/15/19 History subcutaneous solution loperamide 2 mg capsule 2 mg PO Q48H PRN 06/15/19 06/15/19 History Allergies Allergy/AdvReac Type Severity Reaction Status Date / Time No Known Drug Allergies Allergy Verified 06/15/19 15:21 Medical - H&P: Exam - Constitutional Vitals: Temp Pulse Resp BP Pulse Ox 97.5 F 70 27 H 155/77 95 06/15/19 15:21 06/15/19 16:46 06/15/19 17:17 06/15/19 17:16 06/15/19 16:46 Exam: General: Alert, Awake, No acute Distress, obesity Eyes/N/T: EOMI, right eye blind, unable to appreciate JVD given the girth of neck Head/Neck: neck supple, normocephalic atraumatic CV: RRR, No murmurs, normal s1/s2 Pulm: diminished b/l but much more on right, no wheezing Abd: soft, nontender, +BS x4 Ext: no clubbing/cyanosis, Right BKA, LLE 3+ b/l LE edema, edema extends up to abdomen Neuro: Alert, no focal deficits, moves all extremities, CN 2-12 grossly intact, symmetrical strength b/l upper/lower, sensations intact b/l upper/lower Skin: warm/dry Medical - H&P: Reslt - Labs CBC & Chem 7: 06/15/19 15:59 06/15/19 15:59 Labs: Short CBC 06/15/19 Range/Units 15:59 WBC 7.1 (4.50-11.00) K/mcL Hgb 11.1 L (13.7-17.5) g/dL Hct 35.1 L (40.1-51.0) % Plt Count 135 L (140-440) K/mcL BMP 06/15/19 15:59 Sodium 144 Potassium 3.8 Chloride 106 Carbon Dioxide 25 BUN 18 Creatinine 1.5 H Glucose 124 H Calcium 8.6 Liver Function 06/15/19 Range/Units 15:59 Total Bilirubin 0.4 (0.0-1.0) mg/dL AST 17 (0-37) U/l ALT 12 (0-40) U/l Alkaline Phosphatase 98 (39-117) U/L Albumin 3.2 (3.2-5.2) gm/dL Medical - H&P: A/P - Narrative A/P Narrative: A: *Acute on chronic systolic(25%)/diastolic(II) CHF: -Follows with Dr. Marie *Pulmonary edema and b/l pleural effusion, compressive Atelectasis: -maintaining O2 on room air *CKD III: Follows with Dr. Manzo *Anemia, chronic: *Morbid obesity: *h/o MITCHELL: was supposed to get sleep study last fall and has not done yet *DM/retinopathy: On Lantus and metformin P: -IV lasix, aldactone (torsemide held for now, increase upon d/c) -monitor uop/weights/i&o's -cont BB/ACEI -IS -Basal insulin & SSI -BRYAN/MAYELA wraps to LLE and elevate -cont flomax -pt/ot -f/u with pulm for sleep study and f/u with cardiology -ppx: lovenox DNR
[2019-06-15] MEDS ORDERED: ACETAMINOPHEN 325 MG TABLET PO PRN (18:43)
[2019-06-15] MEDS ORDERED: POTASSIUM CHLORIDE 20 MEQ TABLET PO PRN ×2 (18:43)
[2019-06-15] MEDS ORDERED: POTASSIUM CHLORIDE 40 MEQ in DEXTROSE 5% IN WATER 500 ML IV PRN (18:43)
[2019-06-15] MEDS ORDERED: MAGNESIUM SULFATE 2 GM/50 ML BAG IV PRN (18:43)
[2019-06-15] MEDS ORDERED: DEXTROSE 31 GM ORAL.SUSP PO PRN (18:43)
[2019-06-15] MEDS ORDERED: IPRATROPIUM/ALBUTEROL 3 ML AMPUL.NEB NEB PRN (18:43)
[2019-06-15] MEDS ORDERED: DEXTROSE 50% 50 ML VIAL IV PRN (18:43)
[2019-06-15] MEDS ORDERED: SENNOSIDES 1 TABLET PO PRN (18:43)
[2019-06-15] MEDS ORDERED: ONDANSETRON 4 MG/2 ML VIAL IV PRN (18:43)
[2019-06-15] MEDS ORDERED: POLYETHYLENE GLYCOL 3350 17 GM PACKET PO PRN (18:43)
[2019-06-15] MEDS: INSULIN LISPRO 1 UNIT/0.01 ML UNIT SQ SCH (20:14)
[2019-06-15] MEDS: 0.9 % SODIUM CHLORIDE 10 ML SYRINGE IV SCH (20:15)
[2019-06-15] MEDS ORDERED: INSULIN GLARGINE, HUMAN 1 UNIT/0.01 ML SQ SCH (21:00)
[2019-06-16] MEDS ORDERED: FUROSEMIDE 40 MG/4 ML VIAL IV SCH ×2 (06:00→16:00)
[2019-06-16] MEDS: 0.9 % SODIUM CHLORIDE 10 ML SYRINGE IV SCH ×3 (06:06→21:00)
[2019-06-16 06:37] LABS: Basophils # (Auto) 0.02 K/mcL (0.00-0.30); Basophils % (Auto) 0.3 % (0.0-2.0); Eosinophils # (Auto) 0.16 K/mcL (0.00-0.70); Eosinophils % (Auto) 2.3 % (0.0-7.0); Granulocytes % (Auto) 68.9 % (38.0-78.0); Hematocrit 36.2 % (40.1-51.0); Hemoglobin 11.1 g/dL (13.7-17.5); Lymphocytes # (Auto) 1.32 K/mcL (1.50-4.80); Lymphocytes % (Auto) 18.8 % (15.5-49.0); Mean Cell Volume 91.6 fL (80.0-100.0); Mean Corpuscular HGB Conc 30.7 g/dL (31.0-36.0); Mean Platelet Volume 10.1 fL (7.4-10.4); Monocytes # (Auto) 0.68 K/mcL (0.10-0.90); Monocytes % (Auto) 9.7 % (1.0-12.0); Platelet Count 144 K/mcL (140-440); RBC 3.95 M/mcL (4.63-6.08); Red Cell Distribution Width 19.5 % (11.5-14.5)
[2019-06-16] MEDS: INSULIN LISPRO 1 UNIT/0.01 ML UNIT SQ SCH ×4 (07:44→20:49)
[2019-06-16 07:46] LABS: ALT/SGPT 11 U/l (0-40); AST/SGOT 15 U/l (0-37); Albumin 3.2 gm/dL (3.2-5.2); Alkaline Phosphatase 92 U/L (39-117); Bilirubin,Direct < 0.2 mg/dL (0.0-0.3); Bilirubin,Total 0.4 mg/dL (0.0-1.0); Blood Urea Nitrogen 18 mg/dl (8-23); Calcium 8.5 mg/dl (8.6-10.4); Carbon Dioxide 27 mmol/L (22-30); Chloride 106 mmol/L (96-108); Globulin 3.3 gm/dL (2.2-3.7); Glomerular Filtration Rate 52; Glucose 63 mg/dL (70-105); Lactate Dehydrogenase 232 U/L (94-250); Phosphorous 4.2 mg/dL (2.7-4.5); Triglycerides 52 mg/dl (<150); Uric Acid 7.8 mg/dL (2.5-8.0)
--- NOTE | 2019-06-16 08:08 | Internal Med Progress Note ---
Medical - PN: Subj Patient information: Note initiated : 06/16/19 at 8:05 am Service Date, if different from initiated Date: [] Patient: Florencio Grace 63 y/o M admitted on 06/15/19 for Shortness of breath. Chief Complaint: [] Interval history: Mr. Grace is a 63 year old M 63-year-old male with kidney disease presents to his labor and delivery registered nurse office this morning for routine appointment. He appeared to be labored in his breathing and significant increased edema and weight gain. Thus his labor and delivery registered nurse sent him into the ED for likely admission for CHF. Patient states that feels as edema has been gradually progressing over the past month. He feels more short of breath than usual. He has a chronic cough from sinus drainage but does not feel it is any different than usual. Has occasional diarrhea which is chronic. In the ED was evaluated had a chest x-ray which showed edema and effusions. Als o received thoracentesis in the past for effusion Patient was given 80 of IV Lasix in the ED. 06/16 Patient feeling a lot better today. Has diuresed 4300 cc since yesterday. He walked on the hallway and just had a little bit of shortness of breath and could not do that prior to admission. Denies any other pains or complaints. Review of Systems: denies headache/fever/chills/nausea/vomiting/chest or abdominal pain/diarrhea. Otherwise see above. - Constitutional Vitals: Vital Signs Temp Pulse Resp BP Pulse Ox 97.9 F 68 22 124/68 96 06/16/19 04:01 06/16/19 05:08 06/16/19 05:08 06/16/19 04:01 06/16/19 05:08 Period Temp Pulse Resp BP Sys/Bush Pulse Ox Last 24 Hr 97.5 F-98.1 F 68-83 15-37 117-168/63-98 90-96 Intake and Output 06/15/19 06/16/19 06/16/19 21:59 05:59 13:59 Output Total 1999 Weight 134.808 kg Intake & Output: Intake & Output 06/15/19 06/16/19 06/16/19 21:59 05:59 13:59 Output Total 1999 Weight 134.808 kg Output: Urine Catheter Amount 1999 1099 Other: Meal snack Percent of Meal Consumed 100% Feeding Ability Assist with Tray Set Up Urine Appearance Clear Clear Mayo Clear Urine Color Pale Pale Mayo Pale Stool Size Moderate Stool Color Brown Green Stool Consistency Soft Formed # Bowel Movements 1 Exam: General: Alert, Awake, No acute Distress, obesity Eyes/N/T: EOMI, right eye blind, unable to appreciate JVD given the girth of neck Head/Neck: neck supple, normocephalic atraumatic CV: RRR, No murmurs, Pulm: diminished b/l bases, mild b/l rales, no wheezing Abd: soft, nontender, +BS x4 Ext: no clubbing/cyanosis, Right BKA, LLE 2-3+ b/l LE edema, edema extends up to abdomen - improving Neuro: Alert, no focal deficits, moves all extremities, Skin: warm/dry Medical - PN: Obj Da - Labs CBC & Chem 7: 06/16/19 04:31 06/16/19 04:31 Labs: Abnormal Lab Results 06/16/19 06/16/19 06/15/19 04:31 04:31 15:59 RBC 3.95 L Hgb 11.1 L Hct 36.2 L POC Hct 34.0 L MCHC 30.7 L RDW 19.5 H Plt Count Lymph % (Auto) Lymph # (Auto) 1.32 L Creatinine 1.4 H 1.5 H POC Creatinine 1.5 H Glucose 63 L 124 H POC Glucose 123 H Calcium 8.5 L POC WB Ioniz Calcium 1.08 L NT-Pro-B Natriuret Pep 13459.0 H Albumin/Globulin Ratio 0.9 L 06/15/19 15:59 RBC 3.87 L Hgb 11.1 L Hct 35.1 L POC Hct MCHC RDW 19.7 H Plt Count 135 L Lymph % (Auto) 14.8 L Lymph # (Auto) 1.04 L Creatinine POC Creatinine Glucose POC Glucose Calcium POC WB Ioniz Calcium NT-Pro-B Natriuret Pep Albumin/Globulin Ratio Meds: Medications Acetaminophen (Tylenol) 650 mg PO Q6HP PRN PRN Reason: PAIN/FEVER > 101 Albuterol/Ipratropium (Duoneb) 3 ml NEB Q4HP PRN PRN Reason: Shortness Of Breath Atorvastatin Calcium (Lipitor) 10 mg PO QDAY [facility] Bisoprolol Fumarate (Zebeta) 5 mg PO DAILY [facility] Dextrose (Dextrose 50%) 0 ml IV UD PRN PRN Reason: Hypoglycemia Diagnostic Test (Pha) (Accu-Chek) 1 each FS [facility] Last Admin: 06/16/19 07:44 Dose: 1 each Documented by: Enoxaparin Sodium (Lovenox) 40 mg SQ DAILY [facility] Furosemide (Lasix) 40 mg IV Q8 [facility] Last Admin: 06/16/19 06:06 Dose: 40 mg Documented by: Glucose (Insta-Glucose) 15 gm PO PRN PRN PRN Reason: Hypoglycemia Potassium Chloride 40 meq/ (Dextrose) 520 mls @ 130 mls/hr IV UD PRN PRN Reason: Potassium < 3 Magnesium Sulfate (Magnesium Sulfate) 2 gm in 50 mls @ 50 mls/hr IV UD PRN PRN Reason: Magnesium </= 1.6 Insulin Glargine (Lantus) 40 unit SQ [facility] Last Admin: 06/15/19 22:23 Dose: 40 unit Documented by: Insulin Human Lispro (Humalog) 0 unit SQ [facility]; Protocol Last Admin: 06/16/19 07:44 Dose: Not Given Documented by: Ondansetron HCl (Zofran) 4 mg IV Q4HP PRN PRN Reason: Nausea And Vomiting Polyethylene Glycol (Miralax) 17 gm PO DAILYP PRN PRN Reason: Constipation Potassium Chloride (Kdur) 40 meq PO UD PRN PRN Reason: Potssium is 3-3.5 Potassium Chloride (Kdur) 40 meq PO UD PRN PRN Reason: Potassium < 3 Senna (Senokot) 2 tab PO DAILYP PRN PRN Reason: Constipation Sodium Chloride (Saline Flush) 10 ml IV Q8 [facility] Last Admin: 06/16/19 06:06 Dose: 10 ml Documented by: Spironolactone (Aldactone) 50 mg PO QAM [facility] Tamsulosin HCl (Flomax) 0.4 mg PO [facility] Medical - PN: A/P - Time Spent With Patient Total time spent is greater than 50% in coordination of care (as documented) at patient's floor/unit and/or counseling patient: - Narrative A/P Narrative: A: *Acute on chronic systolic(25%)/diastolic(II) CHF: -Follows with Dr. Marie *Pulmonary edema and b/l pleural effusion, compressive Atelectasis: -maintaining O2 on room air *CKD III: Follows with Dr. Manzo *Anemia, chronic: *Morbid obesity: *h/o MITCHELL: was supposed to get sleep study last fall and has not done yet *DM/retinopathy: On Lantus and metformin P: -IV lasix bid, aldactone (torsemide held for now, increase to 20mg upon d/c) -monitor uop/weights/i&o's -CXR in am -cont BB/ACEI -IS -Basal insulin & SSI -BRYAN/MAYELA wraps to LLE and elevate -cont flomax -pt/ot -f/u with pulm for sleep study and f/u with cardiology -ppx: lovenox DNR
[2019-06-16] MEDS ORDERED: SPIRONOLACTONE 25 MG TABLET PO SCH (09:00)
[2019-06-16] MEDS ORDERED: BISOPROLOL 5 MG TABLET PO SCH (09:00)
[2019-06-16] MEDS ORDERED: ATORVASTATIN 20 MG TABLET PO SCH (09:00)
[2019-06-16] MEDS ORDERED: ENOXAPARIN 40 MG/0.4 ML SYRINGE SQ SCH (09:00)
[2019-06-16] MEDS ORDERED: DEXTROSE 50% 50 ML VIAL IV PRN (15:53)
[2019-06-16] MEDS ORDERED: DEXTROSE 31 GM ORAL.SUSP PO PRN (15:53)
[2019-06-16] MEDS ORDERED: ONDANSETRON 4 MG/2 ML VIAL IV PRN (15:53)
[2019-06-16] MEDS ORDERED: POTASSIUM CHLORIDE 20 MEQ TABLET PO PRN ×2 (15:53)
[2019-06-16] MEDS ORDERED: IPRATROPIUM/ALBUTEROL 3 ML AMPUL.NEB NEB PRN (15:53)
[2019-06-16] MEDS ORDERED: POTASSIUM CHLORIDE 40 MEQ in DEXTROSE 5% IN WATER 500 ML IV PRN (15:53)
[2019-06-16] MEDS ORDERED: ACETAMINOPHEN 325 MG TABLET PO PRN (15:53)
[2019-06-16] MEDS ORDERED: MAGNESIUM SULFATE 2 GM/50 ML BAG IV PRN (15:53)
[2019-06-16] MEDS ORDERED: SENNOSIDES 1 TABLET PO PRN (15:53)
[2019-06-16] MEDS ORDERED: POLYETHYLENE GLYCOL 3350 17 GM PACKET PO PRN (15:53)
[2019-06-16] MEDS: FUROSEMIDE 40 MG/4 ML VIAL IV SCH (16:25)
[2019-06-16] MEDS ORDERED: TAMSULOSIN 0.4 MG CAPSULE PO SCH ×2 (21:00)
[2019-06-16] MEDS ORDERED: INSULIN GLARGINE, HUMAN 1 UNIT/0.01 ML SQ SCH (21:00)
[2019-06-17] MEDS: 0.9 % SODIUM CHLORIDE 10 ML SYRINGE IV SCH (05:59)
[2019-06-17] MEDS: INSULIN LISPRO 1 UNIT/0.01 ML UNIT SQ SCH ×2 (07:17→10:52)
--- NOTE | 2019-06-17 08:32 | XRay Report ---
CLINICAL INFORMATION: f/u CHF COMPARISON: 06/15/2019 FINDINGS: Moderate cardiomegaly show slight decrease. Mediastinum is unremarkable. Pulmonary vessels have returned to normal caliber. Moderate consolidative infiltrate left base and smaller infiltrate right base persist. Small bilateral pleural effusions have decreased. IMPRESSION: 1. Complete interval resolution CHF. 2. Moderate consolidated infiltrate left base with small right basilar infiltrate - no significant change Interpreted and Authenticated by: Elmo Youngblood 06/17/19
[2019-06-17] MEDS: FUROSEMIDE 40 MG/4 ML VIAL IV SCH (08:41)
[2019-06-17] MEDS ORDERED: ATORVASTATIN 20 MG TABLET PO SCH (09:00)
[2019-06-17] MEDS ORDERED: BISOPROLOL 5 MG TABLET PO SCH (09:00)
[2019-06-17] MEDS ORDERED: ENOXAPARIN 40 MG/0.4 ML SYRINGE SQ SCH (09:00)
[2019-06-17] MEDS ORDERED: SPIRONOLACTONE 25 MG TABLET PO SCH (09:00)
--- NOTE | 2019-06-17 10:54 | Discharge Summary ---
Medical - DS: Prov Patient information: Note initiated : 06/17/19 at 10:51 am Service Date, if different from initiated Date: [] Patient: Florencio Grace 63 y/o M admitted on 06/15/19 for Shortness of breath. Chief Complaint: CHF Date of admission: 06/15/19 18:34 Discharge date: 06/17/19 Primary care physician: Hayley Moore Attending physician on admission: Aaron Regalado Consults: 06/15/19 Consult to Physician [CONS] Stat Comment: Consulting Provider: Aaron Regalado Reason For Exam: Physician to Consult Attending physician on discharge: Concetta Phan Medical - DS: Meds - Discharge Medications Active and Home Medications: Home Medications Tamsulosin [Flomax] 0.4 mg PO HS 03/08/18 [History Confirmed 06/15/19 Last Taken 06/14/19] metFORMIN HCL [Glucophage] 1,000 mg PO QDAY 03/08/19 [History Confirmed 06/15/19 Last Taken 06/15/19] Oxymetazoline HCl [Anefrin] 2 - 3 spray IRIS BID PRN 03/29/19 [History Confirmed 06/15/19 Last Taken 06/12/19] atorvastatin 10 mg tablet 10 mg PO QDAY 05/05/19 [History Confirmed 06/15/19 Last Taken 06/15/19] ferrous sulfate 325 mg (65 mg iron) tablet 325 mg PO HS tab 05/05/19 [History Confirmed 06/15/19 Last Taken 06/15/19] spironolactone 50 mg tablet 50 mg PO QAM 05/05/19 [History Confirmed 06/15/19 Last Taken 06/15/19] torsemide 10 mg tablet 10 mg PO QAM tab 05/05/19 [History Confirmed 06/15/19 Last Taken 06/15/19] Bisoprolol [Zebeta] 5 mg PO DAILY 06/15/19 [History Confirmed 06/15/19 Last Taken 06/15/19] Valsartan [Diovan] 320 mg PO QDAY 06/15/19 [History Confirmed 06/15/19 Last Taken 06/15/19] insulin glargine 100 unit/mL subcutaneous solution 40 unit SUB-Q HS unit 06/15/19 [History Confirmed 06/15/19 Last Taken 06/14/19] Medical - DS: Hosp Hospital Course: 06/15 Mr. Grace is a 63 year old M with kidney disease presents to his instructional technologist office this morning for routine appointment. He appeared to be labored in his breathing and significant increased edema and weight gain. Thus his instructional technologist sent him into the ED for likely admission for CHF. Patient states that feels as edema has been gradually progressing over the past month. He feels more short of breath than usual. He has a chronic cough from sinus drainage but does not feel it is any different than usual. Has occasional diarrhea which is chronic. In the ED was evaluated had a chest x-ray which showed edema and effusions. Also received thoracentesis in the past for effusion Patient was given 80 of IV Lasix in the ED. 06/16 Patient feeling a lot better today. Has diuresed 4300 cc since yesterday. He walked on the hallway and just had a little bit of shortness of breath and could not do that prior to admission. 06/17 The patient feels like he is back to baseline. Net 5.3 L diuresis since he has been here. Discussed weighing himself daily and adding an afternoon dose of diuretic for weight gain while at home. A: *Acute on chronic systolic(25%)/diastolic(II) CHF: -Follows with Dr. Marie *Pulmonary edema and b/l pleural effusion, compressive Atelectasis: -maintaining O2 on room air *CKD III: Follows with Dr. Mazno *Anemia, chronic: *Morbid obesity: *h/o MITCHELL: was supposed to get sleep study last fall and has not done yet *DM/retinopathy: On Lantus and metformin Discharge diagnosis: Acute on chronic diastolic heart failure - Time Spent with Patient Total time spent providing and/or coordinating discharge services: Greater than 30 minutes (33 min) Medical - DS: Exam - Constitutional Vitals: Vital Signs Temp Pulse Pulse Resp BP BP Pulse Ox 06/17/19 08:00 96.6 F L 74 134/73 94 06/17/19 04:00 98.2 F 82 18 140/80 96 06/17/19 00:00 97.8 F 62 20 132/70 96 06/16/19 21:25 97.0 F 77 18 128/75 91 06/16/19 19:37 16 02/27/20 18:00 98.4 F 80 20 138/78 94 06/16/19 12:00 98.5 F 20 134/59 94 Intake and Output 06/16/19 06/17/19 06/17/19 21:59 05:59 13:59 Intake Total 410 1040 Output Total 2550 350 100 Balance -2140 690 -100 Intake: Oral 410 1040 Output: Urine Catheter Amount 2550 350 Void Amount 100 Other: Meal hs snack Nourishment/Supplement Breakfast Percent of Meal Consumed 100% 100% 50% Feeding Ability Independent Independent Independent Nourishment/Supplement name peaches Urine Appearance Clear Clear Clear Mayo Clear Clear Urine Color Pale Pale Bright Yellow Mayo Pale Pale Urine Odor Normal Normal Normal Mayo Normal Weight 297 lb 8 oz 296 lb Additional comments: General: In no acute distress Chest: Clear bilaterally, no rales Cardiovascular: Regular, no murmur appreciated Abdomen: Obese, soft, nontender Extremities: Status post right lower extremity BKA, left with trace edema Neuro: Alert, oriented x3, ambulating with walker (uses at baseline) Medical - DS: Data - Impressions Admission chest x-ray significant for pulmonary edema, which resolved by the time of discharge. Medical - DS: A/P - Patient/Caregiver Discharge Instructions Activity: resume usual activities as tolerated Diet: Consistent Carbohydrate (Low-sodium) Additional Instructions: Weigh yourself daily For weight gain of 2 pounds or more in 24 hours, or greater than 5 pounds in a week, add an afternoon dose of torsemide daily until your weight returns to baseline - Follow up Plan Follow up with: Hayley Moore MD [Primary Care Provider] - Disposition: Home, Self-Care Prognosis: Good Rehab Potential: Good Overall status at discharge: patient is back to baseline
== END 2019-06-17 12:30 | disposition home or self-care (01) | DRG 291 ==
LOC: ED 15:20 → ICU 18:32 → MEDSUR 06-16 15:17
PROVIDERS: ADMIT Internal Medicine; ATTEND Internal Medicine

== ENCOUNTER 2019-10-24 09:11 | Observation (INO) ==
--- NOTE | 2019-10-24 10:28 | XRay Report ---
INDICATION: sob, hx of pleural effusions. Dyspnea TECHNIQUE: AP portable semiupright chest x-ray COMPARISON: Previous chest x-rays dated 10/06/2019, 09/19/2019 FINDINGS: Lungs:Bibasilar pulmonary parenchymal density consistent with atelectasis. Pneumonia is not excluded. Heart, vascular:There is cardiomegaly. Pulmonary vascularity is prominent with peribronchial thickening and probable interlobular septal thickening. Appearance is consistent with interstitial edema. Mediastinum, molly:No mediastinal widening. No hilar mass Pleura:Small bilateral pleural effusions, right greater than left. Findings are probably secondary to congestive heart failure. Skeletal:Negative. IMPRESSION: 1. Cardiomegaly. Findings consistent with congestive heart failure 2. Small bilateral pleural effusions, right greater than left Interpreted and Authenticated by: Elmo Soliman 10/24/19
[2019-10-24 10:42] LABS: POC Blood Urea Nitrogen 19 mg/dl (8-23); POC CO2 28 mmol/L (22-30); POC Calcium, Ionized 1.06 mmol/L (1.16-1.32); POC Chloride 105 mmol/L (96-108); POC Creatinine 1.5 mg/dl (0.7-1.2); POC Glucose, Random 135 mg/dL (70-105); POC Potassium 3.3 mmol/L (3.3-5.1); POC Sodium 145 mmol/L (133-145)
[2019-10-24 11:07] LABS: Basophils # (Auto) 0.03 K/mcL (0.00-0.30); Basophils % (Auto) 0.5 % (0.0-2.0); Eosinophils # (Auto) 0.12 K/mcL (0.00-0.70); Eosinophils % (Auto) 1.9 % (0.0-7.0); Granulocytes % (Auto) 76.1 % (38.0-78.0); Hemoglobin 11.8 g/dL (13.7-17.5); Lymphocytes # (Auto) 0.78 K/mcL (1.50-4.80); Lymphocytes % (Auto) 12.6 % (15.5-49.0); Mean Cell Volume 95.7 fL (80.0-100.0); Mean Corpuscular HGB Conc 31.1 g/dL (31.0-36.0); Mean Platelet Volume 9.9 fL (7.4-10.4); Monocytes # (Auto) 0.55 K/mcL (0.10-0.90); Monocytes % (Auto) 8.9 % (1.0-12.0); Platelet Count 120 K/mcL (140-440); RBC 3.97 M/mcL (4.63-6.08); Red Cell Distribution Width 15.4 % (11.5-14.5); WBC 6.2 K/mcL (4.50-11.00)
--- NOTE | 2019-10-24 11:09 | Emergency Department Note ---
SOB HPI General Chief Complaint: Shortness of Breath/Dyspnea Stated Complaint: Shortness of breath Time Seen by Provider: 10/24/19 09:50 Source: patient Mode of arrival: wheelchair Limitations: no limitations and other (Speaks 2-3 words at a time and is short of breath with exertion) History of Present Illness HPI Narrative: Narrative: 64-year-old male presents with shortness of breath. Believes he has fluid on his lungs and needs a thoracentesis. States he is had to get thoracentesis every 6 to 8 weeks for the last several months. He does not know why he keeps getting pleural effusions and he is frustrated. He can breathe much easier sitting up and is worse lying down. No fever or chills. No nausea or vomiting. No diarrhea. No home treatments. States his primary care provider is the [place] and has not discussed this with him either. He denies any chest pain just feels congested. Related Data Home Medications Medication Instructions Recorded Confirmed tamsulosin 0.4 mg PO HS 03/08/18 10/24/19 metformin 1,000 mg PO QDAY 03/08/19 10/24/19 atorvastatin 10 mg tablet 10 mg PO QDAY 05/05/19 10/24/19 ferrous sulfate 325 mg (65 mg 325 mg PO HS tab 05/05/19 10/24/19 iron) tablet spironolactone 50 mg tablet 50 mg PO QAM 05/05/19 10/24/19 torsemide 10 mg tablet 10 mg PO QAM tab 05/05/19 09/19/19 bisoprolol fumarate 5 mg PO DAILY 06/15/19 10/24/19 insulin glargine 100 unit/mL 30 unit SUB-Q HS unit 08/03/19 10/24/19 subcutaneous solution Previous Rx's Medication Instructions Recorded torsemide 20 mg PO DAILY #60 tab 10/06/19 Allergies Allergy/AdvReac Type Severity Reaction Status Date / Time No Known Drug Allergies Allergy Verified 10/06/19 12:33 Review of Systems ROS Narrative: Narrative: All systems ED: reviewed and negative except as stated. [facility] Narrative Patient History Narrative: Narrative: Medical/Surgical/Family History All Active Problems (Updated 10/24/19 @ 14:09 by NIKOLAY Alanis) Weakness (Acute) Pleural effusion due to CHF (congestive heart failure) (Acute) Anemia in chronic kidney disease (CKD) (Acute) Hypoxia (Acute) Hypokalemia (Acute) CHF, acute on chronic (Acute) Community acquired pneumonia (Acute) Heart failure, systolic, with acute decompensation (Acute) Chest pain (Acute) CHF (congestive heart failure) (Acute) Pleural effusion (Acute) CKD (chronic kidney disease) (Acute) Diabetes (Acute) Volume overload state of heart (Chronic) CKD stage G3a/A3, GFR 45-59 and albumin creatinine ratio >300 mg/g (Chronic) 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) Pleural effusion (Acute) Congestive heart failure (Chronic) Dermatitis of lower extremity (Chronic) Pedal edema (Chronic) Hypercoagulable state (Chronic) CKD (chronic kidney disease) stage 3, GFR 30-59 ml/min (Chronic) Hyperphosphatemia (Acute) Non compliance with medical treatment (Chronic) Morbid obesity with BMI of 45.0-49.9, adult (Chronic) Anemia (Chronic) Hypertension (Chronic) Diabetes (Chronic) SOB (shortness of breath) (Chronic) Medical History JERMAN (acute kidney injury) (Resolved) Anemia (Chronic) Ankle fracture (Resolved) Chronic wound of extremity (Resolved) CKD (chronic kidney disease) stage 3, GFR 30-59 ml/min (Chronic) Colon cancer (Resolved) Community acquired pneumonia (Resolved) Congestive heart failure (Chronic) Dermatitis of lower extremity (Chronic) Diabetes (Chronic) Heart failure with acute decompensation, type unknown (Resolved) Hypercoagulable state (Chronic) Hyperphosphatemia (Acute) Hypertension (Chronic) Localized edema due to fluid overload (Resolved) 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) Warfarin (for hypercoagulable state?) Morbid obesity with BMI of 45.0-49.9, adult (Chronic) Non compliance with medical treatment (Chronic) Osteomyelitis of ankle (Resolved) Pedal edema (Chronic) Pleural effusion (Acute) s/p thoracentesis 01/2019 Pulmonary edema (Resolved) Pulmonary embolism (Resolved) SOB (shortness of breath) (Chronic) Surgical History History of open reduction and internal fixation (ORIF) procedure (Chronic) Right Arm History of orthopedic surgery (Chronic) Irrigation and debridement 2017 Right Ankle History of partial colectomy (Chronic) History of total replacement of right ankle (Chronic) 11/12/17 Dr Muro Hx of right BKA (Acute) Family History Mother Bruising Bleeding Clotting disorder Father Prostate cancer Social History Smoking Status: Never smoker Alcohol Intake Frequency: does not drink Substance Use: does not use Exam Narrative Narrative: Narrative: General Limitations: no limitations and other (Speaks 2-3 words at a time and is short of breath with exertion) General appearance: alert Head Head: atraumatic, normocephalic and normal inspection Eye Eye: Present normal appearance; Absent conjunctival injection ENT ENT: Present normal oropharynx Neck Neck: Present normal inspection and trachea midline; Absent lymphadenopathy Chest Chest: Present symmetric chest wall rise Respiratory Respiratory: Present decreased breath sounds (Diminished throughout bilaterally) Cardiovascular Cardiovascular: Present regular rate and normal rhythm Adbominal Abdominal: Present soft and normal bowel sounds; Absent distention and tenderness Neurological Neurological: Present alert and oriented X3 Psychiatric Psychiatric: Present normal affect and normal mood Skin Skin: Present warm, dry and intact Course Course Course Narrative: I did speak with Dr. Soliman regarding the pleural effusions and we originally were pleural effusions are very small and that the patient is mostly in congestive heart failure. His proBNP is chronically elevated but it is higher than ever at 65,000. Patient originally declines Lasix and states he absolutely is not can stay or have IV Lasix, states he can take 2 or 3 times the amount of oral Lasix that he has at home, he does this all the time. States he wants to have his lungs drained. I tried to explain to him for some quite some time but he was still agitated and not agreeable. Dr. Mckeon in to see patient and patient now states he will stay and do the IV lasix. @ 1500 Dr. Olmos, hospitalist agrees to accept pt observation. Vital Signs Vital signs: Vital Signs Temperature 97.9 F 10/24/19 09:12 Pulse Rate 72 10/24/19 09:12 Respiratory Rate 28 H 10/24/19 09:12 Blood Pressure 158/83 10/24/19 09:12 Pulse Oximetry (%) 92 10/24/19 09:12 Temperature 97.9 F 10/24/19 09:12 Pulse Rate 63 10/24/19 13:02 Respiratory Rate 27 H 10/24/19 12:32 Blood Pressure 151/80 10/24/19 13:32 Pulse Oximetry (%) 98 10/24/19 13:02 [facility] MDM Narrative Medical decision making narrative: Narrative: Lab Data Lab results reviewed: Yes I reviewed the patient's lab results. Result diagrams: 10/24/19 10:30 10/24/19 10:30 Labs: Lab Results 10/24/19 10/24/19 10/24/19 Range/Units 10:30 10:30 10:30 WBC 6.2 (4.50-11.00) K/mcL RBC 3.97 L (4.63-6.08) M/mcL Hgb 11.8 L (13.7-17.5) g/dL Hct 38.0 L (40.1-51.0) % POC Hct 35.0 L (41.0-55.0) % MCV 95.7 (80.0-100.0) fL MCH 29.7 (26.0-34.0) pg MCHC 31.1 (31.0-36.0) g/dL RDW 15.4 H (11.5-14.5) % Plt Count 120 L (140-440) K/mcL MPV 9.9 (7.4-10.4) fL Gran % 76.1 (38.0-78.0) % Lymph % (Auto) 12.6 L (15.5-49.0) % Hoke % (Auto) 8.9 (1.0-12.0) % Eos % (Auto) 1.9 (0.0-7.0) % Baso % (Auto) 0.5 (0.0-2.0) % Gran # 4.69 (1.80-8.00) K/mcL Lymph # (Auto) 0.78 L (1.50-4.80) K/mcL Hoke # (Auto) 0.55 (0.10-0.90) K/mcL Eos # (Auto) 0.12 (0.00-0.70) K/mcL Baso # (Auto) 0.03 (0.00-0.30) K/mcL PT (11.9-14.5) sec INR (0.9-1.1) POC Sodium 145 (133-145) mmol/L Sodium 144 (133-145) mmol/L POC Potassium 3.3 (3.3-5.1) mmol/L Potassium 3.4 (3.3-5.1) mmol/L POC Chloride 105 (96-108) mmol/L Chloride 108 (96-108) mmol/L Carbon Dioxide 27 (22-30) mmol/L POC Total CO2 28 (22-30) mmol/L Anion Gap 9.0 (8-16) POC BUN 19 (8-23) mg/dl BUN 19 (8-23) mg/dl Creatinine 1.5 H (0.7-1.2) mg/dl POC Creatinine 1.5 H (0.7-1.2) mg/dl GFR Calculation 48 Glucose 140 H (70-105) mg/dL POC Glucose 135 H (70-105) mg/dL Calcium 8.1 L (8.6-10.4) mg/dl POC WB Ioniz Calcium 1.06 L (1.16-1.32) mmol/L Total Bilirubin 0.4 (0.0-1.0) mg/dL AST 14 (0-37) U/l ALT 10 (0-40) U/l Alkaline Phosphatase 94 (39-117) U/L Troponin T < 0.01 (0-0.03) ng/ml NT-Pro-B Natriuret Pep (0-125) pg/ml Total Protein 5.6 L (5.9-8.4) gm/dL Albumin 2.8 L (3.2-5.2) gm/dL Globulin 2.8 (2.2-3.7) gm/dL Albumin/Globulin Ratio 1.0 (1.0-2.3) 10/24/19 10/24/19 Range/Units 10:30 10:30 WBC (4.50-11.00) K/mcL RBC (4.63-6.08) M/mcL Hgb (13.7-17.5) g/dL Hct (40.1-51.0) % POC Hct (41.0-55.0) % MCV (80.0-100.0) fL MCH (26.0-34.0) pg MCHC (31.0-36.0) g/dL RDW (11.5-14.5) % Plt Count (140-440) K/mcL MPV (7.4-10.4) fL Gran % (38.0-78.0) % Lymph % (Auto) (15.5-49.0) % Hoke % (Auto) (1.0-12.0) % Eos % (Auto) (0.0-7.0) % Baso % (Auto) (0.0-2.0) % Gran # (1.80-8.00) K/mcL Lymph # (Auto) (1.50-4.80) K/mcL Hoke # (Auto) (0.10-0.90) K/mcL Eos # (Auto) (0.00-0.70) K/mcL Baso # (Auto) (0.00-0.30) K/mcL PT 13.9 (11.9-14.5) sec INR 1.0 (0.9-1.1) POC Sodium (133-145) mmol/L Sodium (133-145) mmol/L POC Potassium (3.3-5.1) mmol/L Potassium (3.3-5.1) mmol/L POC Chloride (96-108) mmol/L Chloride (96-108) mmol/L Carbon Dioxide (22-30) mmol/L POC Total CO2 (22-30) mmol/L Anion Gap (8-16) POC BUN (8-23) mg/dl BUN (8-23) mg/dl Creatinine (0.7-1.2) mg/dl POC Creatinine (0.7-1.2) mg/dl GFR Calculation Glucose (70-105) mg/dL POC Glucose (70-105) mg/dL Calcium (8.6-10.4) mg/dl POC WB Ioniz Calcium (1.16-1.32) mmol/L Total Bilirubin (0.0-1.0) mg/dL AST (0-37) U/l ALT (0-40) U/l Alkaline Phosphatase (39-117) U/L Troponin T (0-0.03) ng/ml NT-Pro-B Natriuret Pep 51718.0 H (0-125) pg/ml Total Protein (5.9-8.4) gm/dL Albumin (3.2-5.2) gm/dL Globulin (2.2-3.7) gm/dL Albumin/Globulin Ratio (1.0-2.3) Radiology Data Radiology results reviewed: Yes I reviewed the patient's radiology results. 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: No Clinical Impression: CHF (congestive heart failure), Pleural effusion, CKD (chronic kidney disease), Diabetes Patient Disposition: Xfer As Outpt/Obs ([facility]) Condition: Fair Follow up with: Hayley Moore MD [Primary Care Provider] - Prescriptions: No Action spironolactone 50 mg tablet 50 mg PO QAM RF: 0 ferrous sulfate 325 mg (65 mg iron) tablet 325 mg PO HS RF: 0 atorvastatin 10 mg tablet 10 mg tablet 10 mg PO QDAY RF: 0 torsemide 10 mg tablet 10 mg PO QAM RF: 0 insulin glargine 100 unit/mL solution 30 unit SUB-Q HS RF: 0 tamsulosin 0.4 MG capsule 0.4 mg PO HS RF: 0 metformin 1,000 MG tablet 1,000 mg PO QDAY RF: 0 bisoprolol fumarate 5 MG tablet 5 mg PO DAILY RF: 0 torsemide 10 MG tablet 20 mg PO DAILY Qty: 60 RF: 0
[2019-10-24 11:33] LABS: ALT/SGPT 10 U/l (0-40); AST/SGOT 14 U/l (0-37); Albumin 2.8 gm/dL (3.2-5.2); Alkaline Phosphatase 94 U/L (39-117); Bilirubin,Total 0.4 mg/dL (0.0-1.0); Blood Urea Nitrogen 19 mg/dl (8-23); Calcium 8.1 mg/dl (8.6-10.4); Carbon Dioxide 27 mmol/L (22-30); Chloride 108 mmol/L (96-108); Globulin 2.8 gm/dL (2.2-3.7); Glomerular Filtration Rate 48; Glucose 140 mg/dL (70-105)
[2019-10-24] MEDS ORDERED: FUROSEMIDE 40 MG/4 ML VIAL IV ONE ×3 (12:40→14:57)
[2019-10-24 13:07] LABS: Prothrombin Time 13.9 sec (11.9-14.5)
--- NOTE | 2019-10-24 15:05 | Internal Med History&Physical ---
HPI History of Present Illness Patient information: Note initiated : 10/24/19 at 2:57 pm Service Date, if different from initiated Date: [] Patient: Florencio Grace a 64 y/o M admitted on for Shortness of breath. Chief Complaint: [] History of present illness: Mr. Grace is a 64 year old M With a history of dilated cardiomyopathy with recurrent pleural effusion requiring interval thoracentesis. Patient now presentsTo the ER with 2 weeks onset of worsening shortness of breath And decreased exercise tolerance/lower extremity swelling and generalized weight gain. Patient lives alone and has been trying to manage his CHF with diuretics. Over the last 2 weeks despite medications his symptoms have failed to improve.Additionally he has been taking Advil PM daily for joint pains. Initial work-up in the ER was consistent with CHF with bilateral mild effusion however not enough to perform thoracentesis. Patient has been breathing very labored over 25-30 an hour. He received 2 doses of diuretics. Subsequently hospitalist service was consulted. Notably patient follows up with Dr. Sean Manjarrez at [facility] for dilated cardiomyopathy. He is currently on torsemide 20 but appears the patient has been nonadherent to his medication regime. He has had 2 hospitalizations in the last 6 months and multiple ER visits requiring thoracentesis for decompensated heart failure and associated pleural effusion. He follows up with [facility]. At the time of evaluation patient is alert and oriented. He was able to answer most of the questions. He denies recent changes in medications or missed doses.Endorses to NSAID intake But denies high salt diet. Endorses to orthopnea but denies proximal nocturnal dyspnea or bloody expectoration. He does feel his gained weight over the last week. Review of Systems Review of systems: 10 point review system was performed and is negative except for ones discussed above [facility] Medical History JERMAN (acute kidney injury) (Resolved) Anemia (Chronic) Ankle fracture (Resolved) Chronic wound of extremity (Resolved) CKD (chronic kidney disease) stage 3, GFR 30-59 ml/min (Chronic) Colon cancer (Resolved) Community acquired pneumonia (Resolved) Congestive heart failure (Chronic) Dermatitis of lower extremity (Chronic) Diabetes (Chronic) Heart failure with acute decompensation, type unknown (Resolved) Hypercoagulable state (Chronic) Hyperphosphatemia (Acute) Hypertension (Chronic) Localized edema due to fluid overload (Resolved) 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) use of 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 (Chronic) Warfarin (for hypercoagulable state?) Morbid obesity with BMI of 45.0-49.9, adult (Chronic) Non compliance with medical treatment (Chronic) Osteomyelitis of ankle (Resolved) Pedal edema (Chronic) Pleural effusion (Acute) s/p thoracentesis 01/2019 Pulmonary edema (Resolved) Pulmonary embolism (Resolved) SOB (shortness of breath) (Chronic) Surgical History History of open reduction and internal fixation (ORIF) procedure (Chronic) Right Arm History of orthopedic surgery (Chronic) Irrigation and debridement 2017 Right Ankle History of partial colectomy (Chronic) History of total replacement of right ankle (Chronic) 11/12/17 Dr Muro Hx of right BKA (Acute) Family History Mother Bruising Bleeding Clotting disorder Father Prostate cancer Social History (Updated 08/03/19 @ 15:02 by Joanna Manzo MD) smoking status: Never smoker alcohol intake frequency: does not drink substance use type: does not use MEDS/ALLERGIES Home Medications and Allergies Home Medications Medication Instructions Recorded Confirmed Type tamsulosin 0.4 mg PO HS 03/08/18 10/24/19 History metformin 1,000 mg PO QDAY 03/08/19 10/24/19 History atorvastatin 10 mg tablet 10 mg PO QDAY 05/05/19 10/24/19 History ferrous sulfate 325 mg (65 mg 325 mg PO HS tab 05/05/19 10/24/19 History iron) tablet spironolactone 50 mg tablet 50 mg PO QAM 05/05/19 10/24/19 History torsemide 10 mg tablet 10 mg PO QAM tab 05/05/19 09/19/19 History bisoprolol fumarate 5 mg PO DAILY 06/15/19 10/24/19 History insulin glargine 100 unit/mL 30 unit SUB-Q HS unit 08/03/19 10/24/19 History subcutaneous solution torsemide 20 mg PO DAILY #60 tab 10/06/19 10/24/19 Rx Allergies Allergy/AdvReac Type Severity Reaction Status Date / Time No Known Drug Allergies Allergy Verified 10/06/19 12:33 EXAM Constitutional Vitals: Temp Pulse Resp BP Pulse Ox 97.9 F 63 27 H 151/80 98 10/24/19 09:12 10/24/19 13:02 10/24/19 12:32 10/24/19 13:32 10/24/19 13:02 Alert and oriented, minimal anxiety Head normocephalic Oral cavity dry No ear nose discharge Eye movement symmetrical Neck no lymphadenopathy S1-S2 occasionally irregular diminished breath sounds bilateral bases, late inspiratory crackles. Abdomen soft nontender pendulous Lower extremity no cyanosis clubbing, right BKA stump with prosthesis. Left lower extremity elephantine lymphedema Skin no suspicious lesion Psych alert and cooperative Neuro nonfocal DATA Data Completed and Pending Labs on day of discharge: Labs from last 24 hours 10/24/19 10/24/19 10/24/19 10:30 10:30 10:30 WBC RBC Hgb Hct POC Hct MCV MCH MCHC RDW Plt Count MPV Gran % Lymph % (Auto) [place] % (Auto) Eos % (Auto) Baso % (Auto) Gran # Lymph # (Auto) [place] # (Auto) Eos # (Auto) Baso # (Auto) PT 13.9 INR 1.0 POC Sodium Sodium POC Potassium Potassium POC Chloride Chloride Carbon Dioxide POC Total CO2 Anion Gap POC BUN BUN Creatinine POC Creatinine GFR Calculation Glucose POC Glucose Calcium POC WB Ioniz Calcium Total Bilirubin AST ALT Alkaline Phosphatase Troponin T < 0.01 NT-Pro-B Natriuret Pep 37310.0 H Total Protein Albumin Globulin Albumin/Globulin Ratio 10/24/19 10/24/19 10:30 10:30 WBC 6.2 RBC 3.97 L Hgb 11.8 L Hct 38.0 L POC Hct 35.0 L MCV 95.7 MCH 29.7 MCHC 31.1 RDW 15.4 H Plt Count 120 L MPV 9.9 Gran % 76.1 Lymph % (Auto) 12.6 L [place] % (Auto) 8.9 Eos % (Auto) 1.9 Baso % (Auto) 0.5 Gran # 4.69 Lymph # (Auto) 0.78 L [place] # (Auto) 0.55 Eos # (Auto) 0.12 Baso # (Auto) 0.03 PT INR POC Sodium 145 Sodium 144 POC Potassium 3.3 Potassium 3.4 POC Chloride 105 Chloride 108 Carbon Dioxide 27 POC Total CO2 28 Anion Gap 9.0 POC BUN 19 BUN 19 Creatinine 1.5 H POC Creatinine 1.5 H GFR Calculation 48 Glucose 140 H POC Glucose 135 H Calcium 8.1 L POC WB Ioniz Calcium 1.06 L Total Bilirubin 0.4 AST 14 ALT 10 Alkaline Phosphatase 94 Troponin T NT-Pro-B Natriuret Pep Total Protein 5.6 L Albumin 2.8 L Globulin 2.8 Albumin/Globulin Ratio 1.0 A/P Time Spent With Patient Time: * Acute decompensated heart failure, last known EF 25%. Follows up with Dr. Sean Whitfield. Bilateral effusion. Continue aggressive diuresis/optimize CHF management. Known poor compliance to medications. * Dyspnea secondary above. Continue supplemental oxygen/pulmonary toilet. * Weakness and deconditioning-Initiate PT OT at SNF * Chronic renal disease currently at baseline. * DM type II -continue home regimen * PVD/history of BKA. Stump care * History of CAD continue statin/isosorbide/anticoagulation * History of PE continue anticoagulation * History of BPH home dose Flomax * Hyperlipidemia on statin Plan * Obs admission * Aggressive diuresis * Pre-existing medical condition management home meds * Diabetic diet Total time spent is greater than 50% in coordination of care (as documented) at patient's floor/unit and/or counseling patient:
[2019-10-24] MEDS ORDERED: MAGNESIUM SULFATE 2 GM/50 ML BAG IV PRN (15:17)
[2019-10-24] MEDS ORDERED: ACETAMINOPHEN 325 MG TABLET PO PRN (15:17)
[2019-10-24] MEDS ORDERED: BISACODYL 10 MG SUPP.RECT PR PRN (15:17)
[2019-10-24] MEDS ORDERED: DEXTROSE 31 GM ORAL.SUSP PO PRN (15:17)
[2019-10-24] MEDS ORDERED: ONDANSETRON 4 MG/2 ML VIAL IV PRN (15:17)
[2019-10-24] MEDS ORDERED: hydrALAZINE 20 MG/ML VIAL IV PRN (15:17)
[2019-10-24] MEDS ORDERED: DEXTROSE 50% 50 ML VIAL IV PRN (15:17)
[2019-10-24] MEDS ORDERED: ONDANSETRON 4 MG ODT TABLET SL PRN (15:17)
[2019-10-24] MEDS ORDERED: POTASSIUM CHLORIDE 20 MEQ PACKET PO PRN (15:17)
[2019-10-24] MEDS ORDERED: POLYETHYLENE GLYCOL 3350 17 GM PACKET PO PRN (15:17)
[2019-10-24] MEDS ORDERED: METOPROLOL TARTRATE 5 MG/5 ML VIAL IV PRN (15:17)
[2019-10-24] MEDS: INSULIN LISPRO 1 UNIT/0.01 ML UNIT SQ SCH ×2 (16:59→19:57)
[2019-10-24] MEDS: METOLAZONE 2.5 MG TABLET PO SCH (17:03)
[2019-10-24] MEDS: FERROUS SULFATE 325 MG TABLET PO SCH (19:56)
[2019-10-24] MEDS: TAMSULOSIN 0.4 MG CAPSULE PO SCH (19:57)
[2019-10-24] MEDS: HEPARIN 5,000 UNIT/ML VIAL SQ SCH (19:57)
[2019-10-24] MEDS: SENNOSIDES/DOCUSATE SODIUM 1 TAB TABLET PO SCH ×2 (19:57→20:22)
[2019-10-24] MEDS: CYANOCOBALAMIN (VITAMIN B-12) 500 MCG TABLET PO SCH (19:57)
[2019-10-24] MEDS: DOCUSATE SODIUM 100 MG CAPSULE PO SCH ×2 (19:57→20:22)
[2019-10-24] MEDS: INSULIN GLARGINE, HUMAN 1 UNIT/0.01 ML SQ SCH (19:57)
[2019-10-24] MEDS: MELATONIN 3 MG TABLET PO PRN (20:11)
[2019-10-24] MEDS: FUROSEMIDE 40 MG/4 ML VIAL IV SCH (21:36)
[2019-10-24] MEDS: 0.9 % SODIUM CHLORIDE 10 ML SYRINGE IV SCH (21:37)
[2019-10-25] MEDS: FUROSEMIDE 40 MG/4 ML VIAL IV SCH ×3 (05:50→22:41)
[2019-10-25] MEDS: 0.9 % SODIUM CHLORIDE 10 ML SYRINGE IV SCH ×3 (05:50→22:42)
[2019-10-25 06:16] LABS: Hemoglobin 11.7 g/dL (13.7-17.5); Mean Cell Volume 97.4 fL (80.0-100.0); Mean Corpuscular HGB Conc 30.8 g/dL (31.0-36.0); Mean Platelet Volume 9.9 fL (7.4-10.4); Platelet Count 112 K/mcL (140-440); Red Cell Distribution Width 15.2 % (11.5-14.5); WBC 5.3 K/mcL (4.50-11.00)
[2019-10-25 06:35] LABS: ALT/SGPT 7 U/l (0-40); AST/SGOT 16 U/l (0-37); Albumin 2.6 gm/dL (3.2-5.2); Alkaline Phosphatase 75 U/L (39-117); Bilirubin,Direct < 0.2 mg/dL (0.0-0.3); Bilirubin,Total 0.4 mg/dL (0.0-1.0); Blood Urea Nitrogen 19 mg/dl (8-23); Calcium 7.8 mg/dl (8.6-10.4); Carbon Dioxide 29 mmol/L (22-30); Chloride 106 mmol/L (96-108); Globulin 2.6 gm/dL (2.2-3.7); Glomerular Filtration Rate 52; Glucose 124 mg/dL (70-105); Lactate Dehydrogenase 260 U/L (94-250); Phosphorous 4.1 mg/dL (2.7-4.5); Triglycerides 68 mg/dl (<150); Uric Acid 8.5 mg/dL (2.5-8.0)
[2019-10-25] MEDS: METOLAZONE 2.5 MG TABLET PO SCH (07:04)
[2019-10-25] MEDS: INSULIN LISPRO 1 UNIT/0.01 ML UNIT SQ SCH ×4 (07:05→20:22)
[2019-10-25 07:23] LABS: Anisocytosis 1+ (NONE SEEN); Band Neutrophils % 2 % (0-10); Eosinophils % (Manual) 2 % (0-7); Lymphocytes % 18 % (15-49); Macrocytosis FEW (NONE SEEN); Monocytes % (Manual) 4 % (1-12); Platelet Estimate DECREASED (NORMAL); RBC Morphology ABNORM (NORMAL); Segmented Neutrophils % 74 % (38-78)
[2019-10-25] MEDS: HEPARIN 5,000 UNIT/ML VIAL SQ SCH ×2 (08:29→20:11)
[2019-10-25] MEDS: SPIRONOLACTONE 25 MG TABLET PO SCH (08:29)
[2019-10-25] MEDS: BISOPROLOL 5 MG TABLET PO SCH (08:29)
[2019-10-25] MEDS: MULTIVIT,THER IRON,CA,FA & MIN 1 TABLET PO SCH (08:29)
[2019-10-25] MEDS: DOCUSATE SODIUM 100 MG CAPSULE PO SCH ×2 (08:30→20:21)
[2019-10-25] MEDS: ATORVASTATIN 20 MG TABLET PO SCH (08:30)
[2019-10-25] MEDS: CYANOCOBALAMIN (VITAMIN B-12) 500 MCG TABLET PO SCH ×2 (08:30→20:11)
[2019-10-25] MEDS: sitaGLIPtin 100 MG TABLET PO SCH (08:30)
--- NOTE | 2019-10-25 10:45 | Internal Med Progress Note ---
SUBJECTIVE Subjective Patient information: Note initiated : 10/25/19 at 10:43 am Service Date, if different from initiated Date: [] Patient: Florencio Grace a 64 y/o M admitted on 10/24/19 for Shortness of breath. Chief Complaint: [] Interval history: History of present illness: Mr. Grace is a 64 year old M With a history of dilated cardiomyopathy with recurrent pleural effusion requiring interval thoracentesis. Patient now presentsTo the ER with 2 weeks onset of worsening shortness of breath And decreased exercise tolerance/lower extremity swelling and generalized weight gain. Patient lives alone and has been trying to manage his CHF with diuretics. Over the last 2 weeks despite medications his symptoms have failed to improve.Additionally he has been taking Advil PM daily for joint pains. Initial work-up in the ER was consistent with CHF with bilateral mild effusion however not enough to perform thoracentesis. Patient has been breathing very labored over 25-30 an hour. He received 2 doses of diuretics. Subsequently hospitalist service was consulted. Notably patient follows up with Dr. Sean Manjarrez at [facility] for dilated cardiomyopathy. He is currently on torsemide 20 but appears the patient has been nonadherent to his medication regime. He has had 2 hospitalizations in the last 6 months and multiple ER visits requiring thoracentesis for decompensated heart failure and associated pleural effusion. He follows up with [place] [facility]. At the time of evaluation patient is alert and oriented. He was able to answer most of the questions. He denies recent changes in medications or missed doses.Endorses to NSAID intake But denies high salt diet. Endorses to orthopnea but denies proximal nocturnal dyspnea or bloody expectoration. He does feel his gained weight over the last week. 10/24-over 5000 cc net negative urine output. Diuresing well. Improved shortness of breath. Potassium 3.6 creatinine 1.4, home dose reduced to once daily. Aggressive counseling performed on daily weight measurements and diuretics use to prevent future hospitalizations and fluid buildup. Anticipate discharge in 2 4 to 48 hours pending additional 5000 cc net negative fluid balance. Constitutional Vitals: Vital Signs Temp Pulse Resp BP Pulse Ox 97.9 F 64 24 H 152/65 90 10/25/19 07:43 10/25/19 05:51 10/25/19 10:00 10/25/19 10:00 10/25/19 10:00 Period Temp Pulse Resp BP Sys/Bush Pulse Ox Last 24 Hr 97 F-97.9 F 58-66 16-30 122-173/64-123 90-100 Intake and Output 10/24/19 10/25/19 10/25/19 21:59 05:59 13:59 Intake Total 240 Output Total 1400 3100 1500 Balance -1400 3100 -1260 Weight 145.104 kg Intake & Output: Intake & Output 10/24/19 10/25/19 10/25/19 21:59 05:59 13:59 Intake Total 240 Output Total 1400 3100 1500 Balance -1400 3100 -1260 Weight 145.104 kg Intake: Oral 240 Output: Urine Catheter Amount 1400 3100 1500 Other: Meal Dinner Breakfast Percent of Meal Consumed 100% 100% Urine Appearance Clear Cloudy Cloudy Uretheral (Mayo) Clear Urine Color Pale Pale Pale Uretheral (Mayo) Dark Yellow Alert oriente Improved shortness of breath Improving lymphedema Nonlabored breathing Prosthetic right limb, 2+ lymphedema left lower extremity OBJ DATA Labs CBC & Chem 7: 10/25/19 05:20 10/25/19 05:20 Labs: Abnormal Lab Results 10/25/19 10/25/19 10/24/19 05:20 05:20 10:30 RBC 3.90 L Hgb 11.7 L Hct 38.0 L POC Hct MCHC 30.8 L RDW 15.2 H Plt Count 112 L Lymph % (Auto) Lymph # (Auto) Platelet Estimate Decreased A RBC Morphology Abnorm A Anisocytosis 1+ A Macrocytosis Few A Creatinine 1.4 H POC Creatinine Glucose 124 H POC Glucose Uric Acid 8.5 H Calcium 7.8 L POC WB Ioniz Calcium Lactate Dehydrogenase 260 H NT-Pro-B Natriuret Pep 98471.0 H Total Protein 5.2 L Albumin 2.6 L 10/24/19 10/24/19 10:30 10:30 RBC 3.97 L Hgb 11.8 L Hct 38.0 L POC Hct 35.0 L MCHC RDW 15.4 H Plt Count 120 L Lymph % (Auto) 12.6 L Lymph # (Auto) 0.78 L Platelet Estimate RBC Morphology Anisocytosis Macrocytosis Creatinine 1.5 H POC Creatinine 1.5 H Glucose 140 H POC Glucose 135 H Uric Acid Calcium 8.1 L POC WB Ioniz Calcium 1.06 L Lactate Dehydrogenase NT-Pro-B Natriuret Pep Total Protein 5.6 L Albumin 2.8 L Meds: Medications Acetaminophen (Tylenol) 650 mg PO Q4-6HP PRN; Protocol PRN Reason: Per Pain Protocol/Fever > 101 Atorvastatin Calcium (Lipitor) 10 mg PO DAILY [facility] Last Admin: 10/25/19 08:30 Dose: 10 mg Documented by: Bisacodyl (Dulcolax) 10 mg NM Q2-3DAYS PRN PRN Reason: Constipation Bisoprolol Fumarate (Zebeta) 5 mg PO DAILY [facility] Last Admin: 10/25/19 08:29 Dose: 5 mg Documented by: Cyanocobalamin (Vitamin B-12) 1,000 mcg PO BID [facility] Stop: 10/29/19 09:01 Last Admin: 10/25/19 08:30 Dose: 1,000 mcg Documented by: Dextrose (Dextrose 50%) 0 ml IV UD PRN PRN Reason: Hypoglycemia Diagnostic Test (Pha) (Accu-Chek) 1 each FS [facility] Last Admin: 10/25/19 07:00 Dose: 1 each Documented by: Docusate Sodium (Colace) 100 mg PO BID [facility] Last Admin: 10/25/19 08:30 Dose: Not Given Documented by: Ferrous Sulfate (Ferrous Sulfate) 325 mg PO HS [facility] Last Admin: 10/24/19 19:56 Dose: 325 mg Documented by: Furosemide (Lasix) 40 mg IV Q8 [facility] Last Admin: 10/25/19 05:50 Dose: 40 mg Documented by: Glucose (Insta-Glucose) 15 gm PO PRN PRN PRN Reason: Hypoglycemia Heparin Sodium (Porcine) (Heparin) 5,000 unit SQ Q12 [facility] Last Admin: 10/25/19 08:29 Dose: 5,000 unit Documented by: Hydralazine HCl (Apresoline) 10 mg IV Q4-6HP PRN PRN Reason: Hypertension Magnesium Sulfate (Magnesium Sulfate) 2 gm in 50 mls @ 50 mls/hr IV UD PRN PRN Reason: MG = or < 1.7 Insulin Glargine (Lantus) 30 unit SQ [facility] Last Admin: 10/24/19 19:57 Dose: 30 units Documented by: Insulin Human Lispro (Humalog) 0 unit SQ [facility]; Protocol Last Admin: 10/25/19 07:05 Dose: Not Given Documented by: Iron Carb/Multivit/Morrow/Folic Acid (Multivitamin W/Minerals) 1 tab PO DAILY [facility] Last Admin: 10/25/19 08:29 Dose: 1 tab Documented by: Melatonin (Melatonin 3mg Tablet) 3 mg PO HSP PRN PRN Reason: Insomnia Last Admin: 10/24/19 20:11 Dose: 3 mg Documented by: Metolazone (Zaroxolyn) 2.5 mg PO BID@0730,1530 [facility] Last Admin: 10/25/19 07:04 Dose: 2.5 mg Documented by: Metoprolol Tartrate (Lopressor) 5 mg IV Q5M PRN PRN Reason: Heart Rate > 140 bpm Ondansetron HCl (Zofran Odt) 4 mg SL Q4-6HP PRN; Protocol PRN Reason: Nausea And Vomiting Ondansetron HCl (Zofran) 4 mg IV Q4-6HP PRN; Protocol PRN Reason: Nausea And Vomiting Polyethylene Glycol (Miralax) 17 gm PO DAILYP PRN PRN Reason: Constipation Potassium Chloride (Klor-Con) 40 meq PO DAILYP PRN PRN Reason: K+ < 3.5 Senna/Docusate Sodium (Senna Plus Tablet) 1 tab PO [facility] Last Admin: 10/24/19 20:22 Dose: Not Given Documented by: Sitagliptin Phosphate (Januvia) 100 mg PO DAILY [facility] Last Admin: 10/25/19 08:30 Dose: 100 mg Documented by: Sodium Chloride (Saline Flush) 10 ml IV Q8 [facility] Last Admin: 10/25/19 05:50 Dose: 10 ml Documented by: Spironolactone (Aldactone) 50 mg PO DAILY [facility] Last Admin: 10/25/19 08:29 Dose: 50 mg Documented by: Tamsulosin HCl (Flomax) 0.4 mg PO HS [facility] Last Admin: 10/24/19 19:57 Dose: 0.4 mg Documented by: A/P Time Spent With Patient Time: * Acute decompensated heart failure, last known EF 25%. Follows up with Dr. Sean Whitfield. Bilateral effusion. Clinically improving with aggressive diuresis. Known poor compliance to medications. Continue beta- medhat/spironolactone * Dyspnea secondary above. Continue supplemental oxygen/pulmonary toilet. * Weakness and deconditioning-continue PT OT at SNF * Chronic renal disease currently at baseline. Creatinine 1.4 * DM type II -continue home regimen * PVD/history of right BKA. Stump care * History of CAD continue statin/isosorbide/anticoagulation * History of PE continue anticoagulation * History of BPH home dose Flomax * Hyperlipidemia on statin Plan * Continue aggressive diuresis * Pre-existing medical condition management home meds * Diabetic diet * Monitor renal function * PT OT nutrition support QUALITY Stroke Symptom Onset Unknown: No VTE Deep Vein Thrombosis/Pulmonary Embolism Present on Admission: No
[2019-10-25] MEDS: FERROUS SULFATE 325 MG TABLET PO SCH (20:11)
[2019-10-25] MEDS: TAMSULOSIN 0.4 MG CAPSULE PO SCH (20:11)
[2019-10-25] MEDS: INSULIN GLARGINE, HUMAN 1 UNIT/0.01 ML SQ SCH (20:22)
[2019-10-25] MEDS: SENNOSIDES/DOCUSATE SODIUM 1 TAB TABLET PO SCH (20:22)
[2019-10-25] MEDS: MELATONIN 3 MG TABLET PO PRN (22:41)
[2019-10-26] MEDS: FUROSEMIDE 40 MG/4 ML VIAL IV SCH (05:14)
[2019-10-26] MEDS: 0.9 % SODIUM CHLORIDE 10 ML SYRINGE IV SCH (05:15)
[2019-10-26] MEDS: INSULIN LISPRO 1 UNIT/0.01 ML UNIT SQ SCH (07:10)
[2019-10-26 07:21] LABS: Hematocrit 40.8 % (40.1-51.0); Hemoglobin 13.1 g/dL (13.7-17.5); Mean Cell Volume 93.4 fL (80.0-100.0); Mean Corpuscular HGB Conc 32.1 g/dL (31.0-36.0); Mean Platelet Volume 9.7 fL (7.4-10.4); Platelet Count 132 K/mcL (140-440); RBC 4.37 M/mcL (4.63-6.08); Red Cell Distribution Width 14.9 % (11.5-14.5); WBC 5.5 K/mcL (4.50-11.00)
[2019-10-26 07:59] LABS: ALT/SGPT 9 U/l (0-40); AST/SGOT 16 U/l (0-37); Albumin 3.2 gm/dL (3.2-5.2); Albumin/Globulin Ratio 1.1 (1.0-2.3); Alkaline Phosphatase 85 U/L (39-117); Bilirubin,Direct 0.2 mg/dL (0.0-0.3); Bilirubin,Total 0.5 mg/dL (0.0-1.0); Blood Urea Nitrogen 19 mg/dl (8-23); Calcium 8.7 mg/dl (8.6-10.4); Chloride 98 mmol/L (96-108); Globulin 2.8 gm/dL (2.2-3.7); Glomerular Filtration Rate 48; Glucose 83 mg/dL (70-105); Lactate Dehydrogenase 229 U/L (94-250); Phosphorous 3.6 mg/dL (2.7-4.5); Triglycerides 80 mg/dl (<150); Uric Acid 9.9 mg/dL (2.5-8.0)
[2019-10-26 08:01] LABS: Carbon Dioxide 36 mmol/L (22-30)
[2019-10-26] MEDS: ATORVASTATIN 20 MG TABLET PO SCH (08:26)
[2019-10-26] MEDS: CYANOCOBALAMIN (VITAMIN B-12) 500 MCG TABLET PO SCH (08:26)
[2019-10-26] MEDS: sitaGLIPtin 100 MG TABLET PO SCH (08:26)
[2019-10-26] MEDS: BISOPROLOL 5 MG TABLET PO SCH (08:26)
[2019-10-26] MEDS: DOCUSATE SODIUM 100 MG CAPSULE PO SCH (08:27)
[2019-10-26] MEDS: SPIRONOLACTONE 25 MG TABLET PO SCH (08:27)
[2019-10-26] MEDS: MULTIVIT,THER IRON,CA,FA & MIN 1 TABLET PO SCH (08:27)
[2019-10-26] MEDS: HEPARIN 5,000 UNIT/ML VIAL SQ SCH (08:27)
[2019-10-26 08:40] LABS: Anisocytosis 1+ (NONE SEEN); Lymphocytes % 23 % (15-49); Monocytes % (Manual) 6 % (1-12); Platelet Estimate DECREASED (NORMAL); RBC Morphology ABNORM (NORMAL); Segmented Neutrophils % 71 % (38-78)
[2019-10-26] MEDS ORDERED: METOLAZONE 2.5 MG TABLET PO SCH (09:00)
--- NOTE | 2019-10-26 10:03 | Discharge Summary ---
Discharge Provider Provider Patient information: Note initiated : 10/26/19 at 9:58 am Service Date, if different from initiated Date: [] Patient: Florencio Grace 64 y/o M admitted on 10/24/19 for Shortness of breath. Chief Complaint: [] Date of admission: 10/24/19 16:38 Discharge date: 10/26/19 Primary care physician: Hayley Moore Consults: 10/24/19 14:52 Consult to Physician [CONS] Stat Comment: Consulting Provider: Isidro Olmos Reason For Exam: Physician to Consult Discharge Meds Discharge Medications Active and Home Medications: Home Medications tamsulosin 0.4 mg PO HS 03/08/18 [History Confirmed 10/24/19 Last Taken 10/23/19 21:00] metformin 1,000 mg PO HS 03/08/19 [History Confirmed 10/24/19 Last Taken 10/23/19 21:00] spironolactone 50 mg tablet 50 mg PO QAM 05/05/19 [History Confirmed 10/24/19 Last Taken 10/23/19 08:00] bisoprolol fumarate 5 mg PO DAILY 06/15/19 [History Confirmed 10/24/19 Last Taken 10/23/19 08:00] insulin glargine 100 unit/mL subcutaneous solution 30 unit SUB-Q HS unit 08/03/19 [History Confirmed 10/24/19 Last Taken 10/23/19 21:00] atorvastatin 10 mg PO QHS 10/24/19 [History Confirmed 10/24/19 Last Taken 10/23/19 21:00] ferrous sulfate 324 mg PO HS 10/24/19 [History Confirmed 10/24/19 Last Taken 10/23/19 21:00] lisinopril 40 mg PO QDAY 10/24/19 [History Confirmed 10/24/19 Last Taken 10/23/19 08:00] torsemide 10 mg PO DAILY 10/24/19 [History Confirmed 10/24/19 Last Taken 10/23/19 08:00] COURSE Hospital Course Discharge diagnosis: . Time Spent with Patient Time attestation: Discharge diagnosis * Acute decompensated heart failure, last known EF 25%. Follows up with Dr. Sean Whitfield. Bilateral effusion on admission however not enough to be drained. Dramatic clinical improvement noted with aggressive diuresis over 10,000 cc negative fluid balance. Known poor compliance to medications. A ggressively counseled to maintain adherence to medications. Continue beta- medhat/spironolactone * Anasarca-over 10,000 cc negative fluid balance in 24 hours with aggressive diuresis. * Dyspnea secondary above.resolved * Weakness and deconditioning-continue PT OT at SNF * Chronic renal disease currently at baseline. Creatinine 1.5 * DM type II -continue home regimen * PVD/history of right BKA. Stump care * History of CAD continue statin/isosorbide/anticoagulation * History of PE continue anticoagulation * History of BPH home dose Flomax * Hyperlipidemia on statin Brief hospital course History of present illness: Mr. Grace is a 64 year old M With a history of dilated cardiomyopathy with recurrent pleural effusion requiring interval thoracentesis. Patient now presentsTo the ER with 2 weeks onset of worsening shortness of breath And decreased exercise tolerance/lower extremity swelling and generalized weight gain. Patient lives alone and has been trying to manage his CHF with diuretics. Over the last 2 weeks despite medications his symptoms have failed to improve.Additionally he has been taking Advil PM daily for joint pains. Initial work-up in the ER was consistent with CHF with bilateral mild effusion however not enough to perform thoracentesis. Patient has been breathing very labored over 25-30 an hour. He received 2 doses of diuretics. Subsequently hospitalist service was consulted. Notably patient follows up with Dr. Sean Manjarrez at [facility] for dilated cardiomyopathy. He is currently on torsemide 20 but appears the patient has been nonadherent to his medication regime. He has had 2 hospitalizations in the last 6 months and multiple ER visits requiring thoracentesis for decompensated heart failure and associated pleural effusion. He follows up with [facility]. At the time of evaluation patient is alert and oriented. He was able to answer most of the questions. He denies recent changes in medications or missed doses.Endorses to NSAID intake But denies high salt diet. Endorses to orthopnea but denies proximal nocturnal dyspnea or bloody expectoration. He does feel his gained weight over the last week. 10/24-over 5000 cc net negative urine output. Diuresing well. Improved shortness of breath. Potassium 3.6 creatinine 1.4, home dose reduced to once daily. Aggressive counseling performed on daily weight measurements and diuretics use to prevent future hospitalizations and fluid buildup. Anticipate discharge in 24 to 48 hours pending additional 5000 cc net negative fluid balance. 10/25- Patient responded to aggressive diuresis with over 10,000 cc net negative fluid balance Advised to continue diuretics and limit free water intake to less than 2000 cc a day. Take additional 20 mg torsemide if weight gain is over 4 pounds above baseline. EXAM Constitutional Vitals: Temp Pulse Resp BP Pulse Ox 97.4 F 76 20 154/68 93 10/26/19 07:00 10/26/19 05:22 10/26/19 07:00 10/26/19 07:00 10/26/19 07:00 Discharge Data Data Completed and Pending Labs on day of discharge: Labs from last 24 hours 10/26/19 10/26/19 06:26 06:26 WBC 5.5 RBC 4.37 L Hgb 13.1 L Hct 40.8 MCV 93.4 MCH 30.0 MCHC 32.1 RDW 14.9 H Plt Count 132 L MPV 9.7 Total Counted 100 Seg Neutrophils % 71 Band Neutrophils % Not Reportable Lymphocytes % 23 Monocytes % (Manual) 6 Platelet Estimate Decreased A RBC Morphology Abnorm A Anisocytosis 1+ A Sodium 144 Potassium 3.1 L Chloride 98 Carbon Dioxide 36 H Anion Gap 10.0 BUN 19 Creatinine 1.5 H GFR Calculation 48 Glucose 83 Uric Acid 9.9 H Calcium 8.7 Phosphorus 3.6 Magnesium 1.8 Total Bilirubin 0.5 Direct Bilirubin 0.2 GGT 23 AST 16 ALT 9 Alkaline Phosphatase 85 Lactate Dehydrogenase 229 Total Protein 6.0 Albumin 3.2 Globulin 2.8 Albumin/Globulin Ratio 1.1 Triglycerides 80 Discharge Plan Patient/Caregiver Discharge Instructions Activity: increase activity as tolerated Diet: Regular Diet and Low Sodium (2gm) Instructions: Heart Failure (GEN), Meal Planning with Diabetes Exchanges (GEN), Dyspnea (GEN) Activity Restrictions/Additional Instructions: This discharge packet is provided to you to help keep you informed about your care. We want to ensure you get everything you need when you go home. You will also be receiving a call from us in a few days to follow up with you and see how you are doing since your discharge. This gives us a chance to listen to any concerns you maybe experiencing since you were discharged or any additional needs you may have, as well as providing us feedback on your care experience. We strive to always provide excellent care and thank you for your feedback and for choosing [facility]. Prescriptions: Continued spironolactone 50 mg tablet 50 mg PO QAM RF: 0 insulin glargine 100 unit/mL solution 30 unit SUB-Q HS RF: 0 tamsulosin 0.4 MG capsule 0.4 mg PO HS RF: 0 metformin 1,000 MG tablet 1,000 mg PO HS RF: 0 bisoprolol fumarate 5 MG tablet 5 mg PO DAILY RF: 0 atorvastatin 10 mg Tablet 10 mg PO QHS RF: 0 ferrous sulfate 324 mg (65 mg iron) Tablet,Delayed Release (Dr/Ec) 324 mg PO HS RF: 0 lisinopril 40 mg Tablet 40 mg PO QDAY RF: 0 torsemide 10 MG tablet 10 mg PO DAILY RF: 0 Follow Up Plan Follow up with: Brian Dean PA-C [Physician] - 11/01/19 9:00 am (This will be a phone visit.) Patient Disposition: Home, Self-Care Care Plan Goals: Follow-up PCP in [5] days Daily weights measurements and take additional 20 mg torsemide for 3 days if weight gain over 4 pounds over baseline or worsening SOB and call primary care physician if inadequate response to Lasix Return to ER if worsening shortness of breath, fever chills or swelling Continue diet and activity as advised Discussed importance of medication adherence Please review medication list with patient prior to discharge Please schedule follow-up with PCP/Providers prior to discharge and provide printouts Prognosis: Fair Rehab Potential: Fair I certify that the patient requires SNF services: No Overall status at discharge: patient is back to baseline Discharge Orders: Discharge Order (Routine); Ordered 10/26/19 Ordered By: Isidro TORRES VTE Deep Vein Thrombosis/Pulmonary Embolism Present on Admission: No
== END 2019-10-26 10:50 | disposition home or self-care (01) ==
LOC: ICU 09:11 → ED 09:11 → ICU 16:44
PROVIDERS: ADMIT Internal Medicine; ATTEND Internal Medicine

== ENCOUNTER 2020-06-27 10:51 | Inpatient (IN) ==
--- NOTE | 2020-06-27 12:11 | Emergency Department Note ---
SOB HPI General Chief Complaint: Shortness of Breath/Dyspnea Stated Complaint: shortness of breath Time Seen by Provider: 06/27/20 11:09 Source: patient Mode of arrival: wheelchair Limitations: no limitations History of Present Illness HPI Narrative: Narrative: 65-year-old male with past medical history of congestive heart failure, diabetes, hypertension, dyslipidemia, pleural effusion presents emergency department with complaints of shortness of breath. He states that the shortness of breath has been going on for multiple months at this point but over the last 3 weeks it has been getting much worse. He endorses paroxysmal chest pressure that is worse with exertion. The shortness of breath is also worse with exertion. He endorses paroxysmal nocturnal dyspnea, orthopnea. He denies recent surgeries in the last 3 months. He has no family history of coronary artery disease. He does not smoke. He has no history of heart attack, stroke, DVT, PE. He also has noticed around a 15 pound weight gain over the last 2 months or so. [facility] told that if his shortness of breath was worse that he could double up on his Torsemide. He has done this with no relief in his symptoms. He also states that every time he takes a drink of the any liquid he will start having a coughing spell that is able to resolve but only after he coughs for quite some time. He otherwise denies fever, headache, abdominal pain, nausea, vomiting, diarrhea, dysuria, urinary frequency or urgency. Related Data Home Medications Medication Instructions Recorded Confirmed tamsulosin 0.4 mg PO HS 03/08/18 06/27/20 spironolactone 50 mg tablet 50 mg PO QAM 05/05/19 06/27/20 bisoprolol fumarate 5 mg PO DAILY 06/15/19 06/27/20 atorvastatin 10 mg PO QHS 10/24/19 06/27/20 lisinopril 40 mg PO QDAY 10/24/19 06/27/20 torsemide 10 mg PO DAILY 10/24/19 06/27/20 insulin glargine 100 unit/mL 20 unit SUB-Q HS unit 11/30/19 06/27/20 subcutaneous solution ferrous sulfate 325 mg (65 mg 325 mg PO BID 02/29/20 06/27/20 iron) tablet,delayed release Allergies Allergy/AdvReac Type Severity Reaction Status Date / Time No Known Drug Allergies Allergy Verified 06/27/20 10:55 Review of Systems ROS ROS Narrative: Narrative: He denies fever, headache, changes in vision, abdominal pain, nausea, vomiting, diarrhea All systems ED: reviewed and negative except as stated. [facility] Narrative Patient History Narrative: Narrative: Medical/Surgical/Family History All Active Problems (Updated 06/27/20 @ 20:41 by Arjun Romo PA-C) Abnormal CXR (chest x-ray) (Acute) CHF (congestive heart failure) (Acute) Hypoxia (Acute) Acute on chronic combined systolic (congestive) and diastolic (congestive) heart failure (Acute) Vitamin D insufficiency (Acute) CKD (chronic kidney disease), stage III (Acute) Hypocalcemia (Chronic) Weakness (Acute) Pleural effusion due to CHF (congestive heart failure) (Acute) Anemia in chronic kidney disease (CKD) (Acute) Hypoxia (Acute) Hypokalemia (Acute) CHF, acute on chronic (Acute) Community acquired pneumonia (Acute) Heart failure, systolic, with acute decompensation (Acute) Chest pain (Acute) CHF (congestive heart failure) (Acute) Pleural effusion (Acute) CKD (chronic kidney disease) (Acute) Diabetes (Acute) Volume overload state of heart (Chronic) CKD stage G3a/A3, GFR 45-59 and albumin creatinine ratio >300 mg/g (Chronic) CHCF (current) use of 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 (Chronic) Pleural effusion (Acute) Congestive heart failure (Chronic) Dermatitis of lower extremity (Chronic) Pedal edema (Chronic) Hypercoagulable state (Chronic) CKD (chronic kidney disease) stage 3, GFR 30-59 ml/min (Chronic) Hyperphosphatemia (Acute) Non compliance with medical treatment (Chronic) Morbid obesity with BMI of 45.0-49.9, adult (Chronic) Anemia (Chronic) Hypertension (Chronic) Diabetes (Chronic) SOB (shortness of breath) (Chronic) Medical History (Updated 06/27/20 @ 20:41 by Arjun Romo PA-C) JERMAN (acute kidney injury) Anemia Ankle fracture Chronic wound of extremity CKD (chronic kidney disease) stage 3, GFR 30-59 ml/min Colon cancer Community acquired pneumonia Congestive heart failure Dermatitis of lower extremity Diabetes Heart failure with acute decompensation, type unknown Hypercoagulable state Hyperphosphatemia Hypertension 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 Warfarin (for hypercoagulable state?) Morbid obesity with BMI of 45.0-49.9, adult Non compliance with medical treatment Osteomyelitis of ankle Pedal edema Pleural effusion s/p thoracentesis 01/2019 Pulmonary edema Pulmonary embolism SOB (shortness of breath) Surgical History History of open reduction and internal fixation (ORIF) procedure Right Arm History of orthopedic surgery Irrigation and debridement 2017 Right Ankle History of partial colectomy History of total replacement of right ankle 11/12/17 Dr Muro Hx of right BKA Family History Mother Bruising Bleeding Clotting disorder Father Prostate cancer Social History Smoking Status: Never smoker Alcohol Intake Frequency: does not drink Substance Use: does not use Exam Narrative Narrative: Narrative: Respiratory: Poor aeration, absent breath sounds on right middle and lower lobe. No tachypnea or accessory muscle use. General Limitations: no limitations Head Head: Present atraumatic, normocephalic and normal inspection Eye Eye: Present normal appearance and EOMI Cardiovascular Cardiovascular: Present regular rate and normal heart sounds Adbominal Abdominal: Present other (Mild distention, soft nontender no organomegaly no rebound tenderness no guarding) Extremities Extremities: Present other (Right lower extremity has below the knee amputation, left lower extremity has +2 pitting edema with hemosiderin deposits.) Neurological Neurological: Present alert and oriented X3 Psychiatric Psychiatric: Present normal affect and normal mood Skin Skin: Present warm (WNL) and other Course Vital Signs Vital signs: Vital Signs Temperature 97.2 F 06/27/20 10:52 Pulse Rate 78 06/27/20 10:52 Respiratory Rate 16 06/27/20 10:52 Blood Pressure 167/78 06/27/20 10:52 Pulse Oximetry (%) 98 06/27/20 10:52 Temperature 97.7 F 06/27/20 20:02 Pulse Rate 73 06/27/20 20:02 Respiratory Rate 28 H 06/27/20 20:02 Blood Pressure 173/97 06/27/20 20:02 Pulse Oximetry (%) 98 06/27/20 20:02 [facility] MDM Narrative Medical decision making narrative: Narrative: When patient arrived in the emergency department with exertion he was 80% saturation on room air. When he is at rest in bed he is 94% on room air. Chest x-ray two-view shoes pulmonary edema and bibasilar infiltrates with the right being greater than left Last cardiology note was 05-09-19 that had the most recent ejection fraction at 20%, diagnosis of a dilated cardiomyopathy with the recurrent pleural effusions. EKG no acute changes or signs of ischemia on my read. CBC chronic stable anemia, normal WBC no left shift. CMP reviewed unremarkable no acute changes Troponin 0.01 proBNP over 49,000 Temp 97.7 Covid negative I have a low suspicion for pulmonary embolism as he is not tachycardic no recent surgeries, no history of DVT or PE, he denies hemoptysis, hormone use. He does have unilateral leg swelling but I have no contralateral to compare to due to below the knee amputation. He is below 95% saturation on room air. I believe this is most likely to be secondary to congestive heart failure exacerbation or right-sided pleural effusion. His heart score is 4. He is higher risk being overweight, diabetic, treated for hypertension, dyslipidemia and his age for acute coronary syndrome for this reason I have ordered a troponin, and ECG. I have a low suspicion for pneumonia since with the patient's last visits this is a very similar presentation and a normal white count with no fever. Patient's labs have been reviewed. Patient has known dilated cardiomyopathy with a last known ejection fraction last year of 20%. proBNP was greater than 49,000. 40 mg of IV furosemide was started here in the emergency department to start diuresing. I spoke with Dr. Lopez in cardiology over read [facility] who agreed that patient did not need a cardiology consult and that would do just fine by getting diuresed at [facility] and then following up with him in clinic. Dr. Osuna agreed to admit the patient. Patient will be admitte d for further evaluation and treatment. Lab Data Result diagrams: 06/27/20 12:06 06/27/20 12:06 Labs: Lab Results 06/27/20 06/27/20 06/27/20 Range/Units 12:06 12:06 12:06 WBC 7.3 (4.5-11.0) K/mcL RBC 4.26 L (4.50-5.90) M/mcL Hgb 12.4 L (13.5-16.5) g/dL Hct 39.8 L (41.0-55.0) % MCV 93.4 (80.0-100.0) fL MCH 29.1 (26.0-34.0) pg MCHC 31.2 (31.0-36.0) g/dL RDW 14.1 (11.5-14.5) % Plt Count 136 L (140-440) K/mcL MPV 9.8 (7.4-10.4) fL Neut % (Auto) 74.5 (38.0-78.0) % Lymph % (Auto) 15.2 (15.0-49.0) % [place] % (Auto) 8.1 (1.0-12.0) % Eos % (Auto) 1.8 (0.0-7.0) % Baso % (Auto) 0.4 (0.0-2.0) % Lymph # (Auto) 1.11 L (1.50-4.80) K/mcL [place] # (Auto) 0.59 (0.10-0.90) K/mcL Eos # (Auto) 0.13 (0.00-0.70) K/mcL Baso # (Auto) 0.03 (0.00-0.20) K/mcL Absolute Neutrophils 5.43 (1.80-8.00) K/mcL Sodium 146 H (133-145) mmol/L Potassium 3.7 (3.3-5.1) mmol/L Chloride 106 (96-108) mmol/L Carbon Dioxide 31 H (22-30) mmol/L Anion Gap 9.0 (8.0-16.0) BUN 18 (8-23) mg/dL Creatinine 1.5 H (0.7-1.2) mg/dL GFR Calculation 47 Glucose 124 H (70-105) mg/dL Calcium 8.1 L (8.6-10.4) mg/dL Total Bilirubin 0.4 (0.1-1.0) mg/dL AST 19 (<40) U/L ALT 13 (<40) U/L Alkaline Phosphatase 112 (39-117) U/L Troponin T 0.01 (<0.03) ng/mL NT-Pro-B Natriuret Pep 78527.0 H (<125.0) pg/mL Total Protein 6.0 (5.9-8.4) gm/dL Albumin 3.0 L (3.2-5.2) gm/dL Globulin 3.0 (2.2-3.7) gm/dL Albumin/Globulin Ratio 1.0 (1.0-2.3) ED POC Tests ED POC Tests: GIOVANNA - SARS Antigen Negative EKG Data EKG #1: EKG results narrative: ECG shows a sinus rhythm at 68 beats a minute with a left bundle branch block. Left axis deviation. Borderline CA interval wide QRS borderline QTC. There are no signs of Brugada, Ubqjj-Mpapgljey-Nbjdm or HOCM. No dagger Q waves. There are no hyperacute T waves or ST segment deviations. Compared to previous ECG on 04-24-20 inverted T waves in V4 through V6 have returned upright and at baseline. My interpretation is normal sinus rhythm with a left bundle branch block. Discharge Plan Patient/Caregiver Discharge Instructions Pt seen by G[employer]ATION CASHIER/PA only: Yes Clinical Impression: CHF (congestive heart failure), Hypoxia Patient Disposition: Xfer As Inpt ([facility]) Condition: Serious Discharge Date/Time: 06/27/20 17:20
--- NOTE | 2020-06-27 12:41 | XRay Report ---
CLINICAL INFORMATION: SOB COMPARISON: 05/14/2020 FINDINGS: Marked cardiomegaly has increased. Mediastinum is unremarkable. The pulmonary vessels are mildly distended and there is mild peribronchovascular edema. Moderate bilateral pleural effusions have worsened. Mild bibasilar airspace disease likely represents atelectasis. IMPRESSION: Mild/moderate CHF. Moderate bilateral pleural effusions bibasilar atelectasis Interpreted and Authenticated by: Elmo Youngblood 06/27/20
[2020-06-27] MEDS ORDERED: FUROSEMIDE 40 MG/4 ML VIAL IV ONE (12:42)
[2020-06-27 13:04] LABS: Basophils # (Auto) 0.03 K/mcL (0.00-0.20); Basophils % (Auto) 0.4 % (0.0-2.0); Eosinophils # (Auto) 0.13 K/mcL (0.00-0.70); Eosinophils % (Auto) 1.8 % (0.0-7.0); Hematocrit 39.8 % (41.0-55.0); Hemoglobin 12.4 g/dL (13.5-16.5); Lymphocytes # (Auto) 1.11 K/mcL (1.50-4.80); Lymphocytes % (Auto) 15.2 % (15.0-49.0); Mean Cell Volume 93.4 fL (80.0-100.0); Mean Corpuscular HGB Conc 31.2 g/dL (31.0-36.0); Mean Platelet Volume 9.8 fL (7.4-10.4); Monocytes # (Auto) 0.59 K/mcL (0.10-0.90); Monocytes % (Auto) 8.1 % (1.0-12.0); Neutrophils % (Auto) 74.5 % (38.0-78.0); Platelet Count 136 K/mcL (140-440); RBC 4.26 M/mcL (4.50-5.90); Red Cell Distribution Width 14.1 % (11.5-14.5); WBC 7.3 K/mcL (4.5-11.0)
[2020-06-27 13:28] LABS: ALT/SGPT 13 U/L (<40); AST/SGOT 19 U/L (<40); Alkaline Phosphatase 112 U/L (39-117); Bilirubin,Total 0.4 mg/dL (0.1-1.0); Blood Urea Nitrogen 18 mg/dL (8-23); Calcium 8.1 mg/dL (8.6-10.4); Carbon Dioxide 31 mmol/L (22-30); Chloride 106 mmol/L (96-108); Glomerular Filtration Rate 47; Glucose 124 mg/dL (70-105)
--- NOTE | 2020-06-27 16:19 | Internal Med History&Physical ---
HPI History of Present Illness Patient information: Note initiated : 06/27/20 at 4:13 pm Service Date, if different from initiated Date: [] Patient: Florencio Grace a 65 y/o M admitted on for shortness of breath. Chief Complaint: SOB , swelling History of present illness: Mr. Grace is a 65 year old M with a history of dilated cardiomyopathy/20% EF and recurrent pleural effusion requiring thoracentesis. Patient has multiple hospitalization for decompensated heart failure in the recent times. He has however not followed up with a cardiology since early 2019. He presents to the ER with 2 weeks onset of worsening shortness of breath/increasing weight gain in excess of 15 pounds despite increasing his regular diuretics and associated nonproductive cough. Is currently on beta-medhat/MAYELA inhibitor along with torsemide and spironolactone. He denies taking NSAIDs or excessive salt or exposure to sick contacts. He denies diarrhea, lightheadedness, dizziness, bleeding. He presents today with above symptoms similar to what led to prior hospitalizations. Initial work-up in the ER was consistent with acute decompensated heart failure with chest imaging shows stable pleural effusion/pulmonary edema. Patient was started on diuretics/cardiology was consulted and requested hospitalization for continued diuresis with advised to have patient follow-up as outpatient with cardiology on discharge. Subsequently hospital service was consulted for admission. At the time of my evaluation patient is alert and oriented. He was able to answer most of the questions. He endorses to orthopnea and increasing lower extremity swelling. He is normally able to get around and lives alone however over the last couple of weeks has not been able to function due to progressive shortness of breath. He denies associated fever, rash, joint pain, URI symptoms. Review of systems 10 point review system was performed and is negative except for ones discussed above PFSH PFSH All Active Problems (Updated 06/27/20 @ 20:41 by Arjun Romo PA-C) Abnormal CXR (chest x-ray) (Acute) CHF (congestive heart failure) (Acute) Hypoxia (Acute) Acute on chronic combined systolic (congestive) and diastolic (congestive) heart failure (Acute) Vitamin D insufficiency (Acute) CKD (chronic kidney disease), stage III (Acute) Hypocalcemia (Chronic) Weakness (Acute) Pleural effusion due to CHF (congestive heart failure) (Acute) Anemia in chronic kidney disease (CKD) (Acute) Hypoxia (Acute) Hypokalemia (Acute) CHF, acute on chronic (Acute) Community acquired pneumonia (Acute) Heart failure, systolic, with acute decompensation (Acute) Chest pain (Acute) CHF (congestive heart failure) (Acute) Pleural effusion (Acute) CKD (chronic kidney disease) (Acute) Diabetes (Acute) Volume overload state of heart (Chronic) CKD stage G3a/A3, GFR 45-59 and albumin creatinine ratio >300 mg/g (Chronic) 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 (Chronic) Pleural effusion (Acute) Congestive heart failure (Chronic) Dermatitis of lower extremity (Chronic) Pedal edema (Chronic) Hypercoagulable state (Chronic) CKD (chronic kidney disease) stage 3, GFR 30-59 ml/min (Chronic) Hyperphosphatemia (Acute) Non compliance with medical treatment (Chronic) Morbid obesity with BMI of 45.0-49.9, adult (Chronic) Anemia (Chronic) Hypertension (Chronic) Diabetes (Chronic) SOB (shortness of breath) (Chronic) Medical History (Updated 06/27/20 @ 20:41 by Arjun Romo PA-C) JERMAN (acute kidney injury) Anemia Ankle fracture Chronic wound of extremity CKD (chronic kidney disease) stage 3, GFR 30-59 ml/min Colon cancer Community acquired pneumonia Congestive heart failure Dermatitis of lower extremity Diabetes Heart failure with acute decompensation, type unknown Hypercoagulable state Hyperphosphatemia Hypertension 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 Warfarin (for hypercoagulable state?) Morbid obesity with BMI of 45.0-49.9, adult Non compliance with medical treatment Osteomyelitis of ankle Pedal edema Pleural effusion s/p thoracentesis 01/2019 Pulmonary edema Pulmonary embolism SOB (shortness of breath) Surgical History History of open reduction and internal fixation (ORIF) procedure Right Arm History of orthopedic surgery Irrigation and debridement 2017 Right Ankle History of partial colectomy History of total replacement of right ankle 11/12/17 Dr Muro Hx of right BKA Family History Mother Bruising Bleeding Clotting disorder Father Prostate cancer Social History leisure activities: other other: swimming smoking status: Never smoker alcohol intake frequency: does not drink substance use type: does not use MEDS/ALLERGIES Home Medications and Allergies Home Medications Medication Instructions Recorded Confirmed Type tamsulosin 0.4 mg PO HS 03/08/18 06/27/20 History spironolactone 50 mg tablet 50 mg PO QAM 05/05/19 06/27/20 History bisoprolol fumarate 5 mg PO DAILY 06/15/19 06/27/20 History atorvastatin 10 mg PO QHS 10/24/19 06/27/20 History lisinopril 40 mg PO QDAY 10/24/19 06/27/20 History torsemide 10 mg PO DAILY 10/24/19 06/27/20 History insulin glargine 100 unit/mL 20 unit SUB-Q HS unit 11/30/19 06/27/20 History subcutaneous solution ferrous sulfate 325 mg (65 mg 325 mg PO BID 02/29/20 06/27/20 History iron) tablet,delayed release Allergies Allergy/AdvReac Type Severity Reaction Status Date / Time No Known Drug Allergies Allergy Verified 06/27/20 10:55 EXAM Constitutional Vitals: Temp Pulse Resp BP Pulse Ox 97.2 F 55 L 20 200/59 99 06/27/20 10:52 06/27/20 15:50 06/27/20 15:50 06/27/20 15:10 06/27/20 15:50 Alert and oriented, SOB Head normocephalic Oral cavity dry No ear nose discharge Eye movement symmetrical Neck no lymphadenopathy S1-S2 occasionally irregular diminished breath sounds bilateral bases, late inspiratory crackles. Abdomen soft nontender pendulous Lower extremity no cyanosis clubbing, right BKA stump with prosthesis. Left lower extremity elephantine lymphedema Skin no suspicious lesion Psych alert and cooperative Neuro nonfocal DATA Data Completed and Pending Labs: Labs from last 24 hours 06/27/20 06/27/20 06/27/20 12:06 12:06 12:06 WBC 7.3 RBC 4.26 L Hgb 12.4 L Hct 39.8 L MCV 93.4 MCH 29.1 MCHC 31.2 RDW 14.1 Plt Count 136 L MPV 9.8 Neut % (Auto) 74.5 Lymph % (Auto) 15.2 [place] % (Auto) 8.1 Eos % (Auto) 1.8 Baso % (Auto) 0.4 Lymph # (Auto) 1.11 L [place] # (Auto) 0.59 Eos # (Auto) 0.13 Baso # (Auto) 0.03 Absolute Neutrophils 5.43 Sodium 146 H Potassium 3.7 Chloride 106 Carbon Dioxide 31 H Anion Gap 9.0 BUN 18 Creatinine 1.5 H GFR Calculation 47 Glucose 124 H Calcium 8.1 L Total Bilirubin 0.4 AST 19 ALT 13 Alkaline Phosphatase 112 Troponin T 0.01 NT-Pro-B Natriuret Pep 97448.0 H Total Protein 6.0 Albumin 3.0 L Globulin 3.0 Albumin/Globulin Ratio 1.0 A/P Narrative A/P Narrative: * Acute decompensated systolic heart failure, last known EF 20 to 25%. Follows up with Dr. Sean Barkley. Start aggressive diuresis. Continue beta-medhat/MAYELA inhibitor * Acute hypoxic respiratory failure-supplemental oxygen, noninvasive ventilation if required. * Pulmonary edema with bilateral pleural effusion * Anasarca-over 15 pound weight gain. Continue aggressive diuresis with Lasix metolazone combination * Weakness and deconditioning-start aggressive PT OT * Chronic kidney disease stage IIIb, creatinine at baseline, avoid nephrotoxins * DM type II -CC diet/basal prandial insulin * PVD/history of right BKA. Stump care * History of CAD continue statin//beta-medhat/MAYELA inhibitor/spironolactone * History of PE currently not on anticoagulation * History of BPH continue Flomax * Hyperlipidemia start home dose statin Plan * Inpatient admission * Aggressive diuresis * Pre-existing medical mission management home medications * Aggressive PT OT * Outpatient cardiology follow-up and discharge * Wean oxygen as tolerated Time Spent With Patient Time: Total time spent is greater than 50% in coordination of care (as documented) at patient's floor/unit and/or counseling patient:
[2020-06-27] MEDS ORDERED: ACETAMINOPHEN 325 MG TABLET PO PRN (17:20)
[2020-06-27] MEDS ORDERED: BISACODYL 10 MG SUPP.RECT PR PRN (17:20)
[2020-06-27] MEDS ORDERED: MELATONIN 3 MG TABLET PO PRN (17:20)
[2020-06-27] MEDS ORDERED: ACETAMINOPHEN 650 MG/65 ML BAG IV PRN (17:20)
[2020-06-27] MEDS ORDERED: MAGNESIUM SULFATE 2 GM/50 ML BAG IV PRN (17:20)
[2020-06-27] MEDS ORDERED: ONDANSETRON 4 MG ODT TABLET SL PRN (17:20)
[2020-06-27] MEDS ORDERED: POLYETHYLENE GLYCOL 3350 17 GM PACKET PO PRN (17:20)
[2020-06-27] MEDS ORDERED: POTASSIUM CHLORIDE 20 MEQ PACKET PO PRN (17:20)
[2020-06-27] MEDS ORDERED: DEXTROSE 31 GM ORAL.SUSP PO PRN (17:20)
[2020-06-27] MEDS ORDERED: ONDANSETRON 4 MG/2 ML VIAL IV PRN (17:20)
[2020-06-27] MEDS ORDERED: DEXTROSE 50% 50 ML VIAL IV PRN (17:20)
[2020-06-27] MEDS ORDERED: POTASSIUM CHLORIDE 40 MEQ in DEXTROSE 5% IN WATER 500 ML IV PRN (17:20)
[2020-06-27] MEDS: INSULIN LISPRO 1 UNIT/0.01 ML UNIT SQ SCH ×2 (17:46→21:58)
[2020-06-27] MEDS: FERROUS SULFATE 325 MG TABLET PO SCH ×2 (18:37→18:42)
[2020-06-27] MEDS: LISINOPRIL 20 MG TABLET PO ONE ×2 (18:38)
[2020-06-27] MEDS: LISINOPRIL 10 MG TABLET ONE (18:38)
[2020-06-27] MEDS: ATORVASTATIN 10 MG TABLET PO SCH (21:56)
[2020-06-27] MEDS: HEPARIN 5,000 UNIT/ML VIAL SQ SCH (21:57)
[2020-06-27] MEDS: INSULIN GLARGINE, HUMAN 1 UNIT/0.01 ML SQ SCH (21:57)
[2020-06-27] MEDS: TAMSULOSIN 0.4 MG CAPSULE PO SCH (21:57)
[2020-06-27] MEDS: FUROSEMIDE 40 MG/4 ML VIAL IV SCH (21:57)
[2020-06-27] MEDS: SENNOSIDES/DOCUSATE SODIUM 1 TAB TABLET PO SCH (21:58)
[2020-06-27] MEDS: 0.9 % SODIUM CHLORIDE 10 ML SYRINGE IV SCH (21:58)
[2020-06-27] MEDS: DOCUSATE SODIUM 100 MG CAPSULE PO SCH (21:58)
[2020-06-28] MEDS: FUROSEMIDE 40 MG/4 ML VIAL IV SCH ×3 (05:09→21:13)
[2020-06-28] MEDS: 0.9 % SODIUM CHLORIDE 10 ML SYRINGE IV SCH ×3 (05:09→20:44)
[2020-06-28 06:34] LABS: Basophils # (Auto) 0.03 K/mcL (0.00-0.20); Basophils % (Auto) 0.4 % (0.0-2.0); Eosinophils # (Auto) 0.15 K/mcL (0.00-0.70); Eosinophils % (Auto) 2.1 % (0.0-7.0); Hematocrit 36.9 % (41.0-55.0); Hemoglobin 11.3 g/dL (13.5-16.5); Lymphocytes # (Auto) 1.29 K/mcL (1.50-4.80); Lymphocytes % (Auto) 18.4 % (15.0-49.0); Mean Cell Volume 95.8 fL (80.0-100.0); Mean Corpuscular HGB Conc 30.6 g/dL (31.0-36.0); Mean Platelet Volume 9.7 fL (7.4-10.4); Monocytes # (Auto) 0.75 K/mcL (0.10-0.90); Monocytes % (Auto) 10.7 % (1.0-12.0); Neutrophils % (Auto) 68.4 % (38.0-78.0); Platelet Count 111 K/mcL (140-440); RBC 3.85 M/mcL (4.50-5.90); Red Cell Distribution Width 14.1 % (11.5-14.5)
[2020-06-28 07:13] LABS: ALT/SGPT 9 U/L (<40); AST/SGOT 13 U/L (<40); Albumin 2.7 gm/dL (3.2-5.2); Alkaline Phosphatase 92 U/L (39-117); Bilirubin,Direct < 0.2 mg/dL (0-0.3); Bilirubin,Total 0.3 mg/dL (0.1-1.0); Blood Urea Nitrogen 18 mg/dL (8-23); Calcium 7.7 mg/dL (8.6-10.4); Carbon Dioxide 33 mmol/L (22-30); Chloride 106 mmol/L (96-108); Globulin 2.6 gm/dL (2.2-3.7); Glomerular Filtration Rate 47; Glucose 85 mg/dL (70-105); Lactate Dehydrogenase 252 U/L (135-225); Phosphorous 4.4 mg/dL (2.5-4.5); Triglycerides 62 mg/dL (<150)
[2020-06-28] MEDS: INSULIN LISPRO 1 UNIT/0.01 ML UNIT SQ SCH ×4 (07:17→20:23)
[2020-06-28] MEDS: SPIRONOLACTONE 25 MG TABLET PO SCH (08:36)
[2020-06-28] MEDS: BISOPROLOL 5 MG TABLET PO SCH (08:36)
[2020-06-28] MEDS: METOLAZONE 2.5 MG TABLET PO SCH (08:36)
[2020-06-28] MEDS: HEPARIN 5,000 UNIT/ML VIAL SQ SCH ×2 (08:37→20:22)
[2020-06-28] MEDS: DOCUSATE SODIUM 100 MG CAPSULE PO SCH ×2 (08:37→20:43)
[2020-06-28] MEDS: LISINOPRIL 20 MG TABLET PO SCH (08:37)
[2020-06-28] MEDS: FERROUS SULFATE 325 MG TABLET PO SCH ×2 (08:37→17:06)
[2020-06-28] MEDS: LISINOPRIL 10 MG TABLET ONE (10:22)
--- NOTE | 2020-06-28 13:26 | Internal Med Progress Note ---
SUBJECTIVE Subjective Patient information: Note initiated : 06/28/20 at 1:23 pm Service Date, if different from initiated Date: [] Patient: Florencio Grace a 65 y/o M admitted on 06/27/20 for shortness of breath. Chief Complaint: [] Interval history: Mr. Grace is a 65 year old M with a history of dilated cardiomyopathy/20% EF and recurrent pleural effusion requiring thoracentesis. Patient has multiple hospitalization for decompensated heart failure in the recent times. He has however not followed up with a cardiology since early 2019. He presents to the ER with 2 weeks onset of worsening shortness of breath/increasing weight gain in excess of 15 pounds despite increasing his regular diuretics and associated nonproductive cough. Is currently on beta- medhat/MAYELA inhibitor along with torsemide and spironolactone. He denies taking NSAIDs or excessive salt or exposure to sick contacts. He denies diarrhea, lightheadedness, dizziness, bleeding. He presents today with above symptoms similar to what led to prior hospitalizations. Initial work-up in the ER was consistent with acute decompensated heart failure with chest imaging shows stable pleural effusion/pulmonary edema. Patient was started on diuretics/cardiology was consulted and requested hospitalization for continued diuresis with advised to have patient follow-up as outpatient with cardiology on discharge. Subsequently hospital service was consulted for admission. At the time of my evaluation patient is alert and oriented. He was able to answer most of the questions. He endorses to orthopnea and increasing lower extremity swelling. He is normally able to get around and lives alone however over the last couple of weeks has not been able to function due to progressive shortness of breath. He denies associated fever, rash, joint pain, URI symptoms. 06/28-patient doing well. Over 2000 cc net negative fluid balance. Continue diuretics. Feeling a lot better. Improved lymphedema. Improved shortness of breath and orthopnea. No telemetry events. On further questioning patient does endorse that he misses his doses for the sake of convenience when he is out shopping and that leads to fluid buildup. Adherence is clearly not of concern here due to repeated hospitalizations for fluid buildup due to inadequate diuresis. Aggressively counseled to continue diuretics and daily weight monitoring. Constitutional Vitals: Vital Signs Temp Pulse Resp BP Pulse Ox 97.4 F 50 L 36 H 152/66 99 06/28/20 12:02 06/28/20 12:02 06/28/20 12:02 06/28/20 12:02 06/28/20 12:02 Period Temp Pulse Resp BP Sys/Bush Pulse Ox Last 24 Hr 97.1 F-99 F 48-73 17-38 130-200/56-97 91-100 Intake and Output 06/27/20 06/28/20 06/28/20 21:59 05:59 13:59 Intake Total 480 Output Total 700 2100 1500 Balance -700 -2099 1020 Weight 132.222 kg Alert oriented Nonlabored breathing Improving lymphedema. No erythema around BKA stump Intake & Output: Intake & Output 06/27/20 06/28/20 06/28/20 21:59 05:59 13:59 Intake Total 480 Output Total 700 2100 1500 Balance -700 -2099 -1020 Weight 132.222 kg Intake: Oral 480 Output: Urine Catheter Amount 100 2100 1500 Void Amount 600 Other: Meal Breakfast Percent of Meal Consumed 100% Feeding Ability Independent Urine Appearance Clear Clear Clear Uretheral (Mayo) Clear Clear Clear Urine Color Bright Yellow Bright Yellow Pale Uretheral (Mayo) Bright Yellow Bright Yellow Pale Urine Odor Strong Normal Uretheral (Mayo) Strong Strong Stool Size Large Stool Color Brown Green Stool Consistency Normal for Patient Soft Formed OBJ DATA Labs CBC & Chem 7: 06/28/20 05:25 06/28/20 05:25 Labs: Abnormal Lab Results 06/28/20 06/28/20 06/27/20 05:25 05:25 12:06 RBC 3.85 L Hgb 11.3 L Hct 36.9 L MCHC 30.6 L Plt Count 111 L Lymph # (Auto) 1.29 L Sodium 146 H Carbon Dioxide 33 H 31 H Anion Gap 5.0 L Creatinine 1.5 H 1.5 H Glucose 124 H Calcium 7.7 L 8.1 L Lactate Dehydrogenase 252 H NT-Pro-B Natriuret Pep 77132.0 H Total Protein 5.3 L Albumin 2.7 L 3.0 L 06/27/20 12:06 RBC 4.26 L Hgb 12.4 L Hct 39.8 L MCHC Plt Count 136 L Lymph # (Auto) 1.11 L Sodium Carbon Dioxide Anion Gap Creatinine Glucose Calcium Lactate Dehydrogenase NT-Pro-B Natriuret Pep Total Protein Albumin Meds: Medications Acetaminophen (Acetaminophen 325 Mg Tablet) 650 mg PO Q4-6HP PRN; Protocol PRN Reason: Per Pain Protocol/Fever > 101 Atorvastatin Calcium (Atorvastatin 10 Mg Tablet) 10 mg PO QHS [facility] Last Admin: 06/27/20 21:56 Dose: 10 mg Documented by: Bisacodyl (Bisacodyl 10 Mg Supp.Rect) 10 mg [place] Q2-3DAYS PRN PRN Reason: Constipation Bisoprolol Fumarate (Bisoprolol 5 Mg Tablet) 5 mg PO DAILY [facility] Last Admin: 06/28/20 08:36 Dose: 5 mg Documented by: Dextrose (Dextrose 50% 50 Ml Vial) 0 ml IV UD PRN PRN Reason: Hypoglycemia Diagnostic Test (Pha) (Accu-Chek 1 Each Strip) 1 each FS ACHS [facility] Last Admin: 06/28/20 12:12 Dose: 1 each Documented by: Docusate Sodium (Docusate Sodium 100 Mg Capsule) 100 mg PO BID [facility] Last Admin: 06/28/20 08:37 Dose: Not Given Documented by: Ferrous Sulfate (Ferrous Sulfate 325 Mg Tablet) 325 mg PO BIDCC [facility] Last Admin: 06/28/20 08:37 Dose: Not Given Documented by: Furosemide (Furosemide 40 Mg/4 Ml Vial) 40 mg IV Q8 [facility] Last Admin: 06/28/20 05:09 Dose: 40 mg Documented by: Glucose (Dextrose 31 Gm Oral.Susp) 15 gm PO PRN PRN PRN Reason: Hypoglycemia Heparin Sodium (Porcine) (Heparin 5,000 Unit/Ml Vial) 5,000 unit SQ Q12 [facility] Last Admin: 06/28/20 08:37 Dose: 5,000 unit Documented by: Potassium Chloride 40 meq/ (Dextrose) 520 mls @ 130 mls/hr IV UD PRN PRN Reason: K+ = or < 3.5 Acetaminophen (Ofirmev) 650 mg in 65 mls @ 130 mls/hr IV Q6HP PRN; Protocol PRN Reason: Per Pain Protocol/Fever > 101 Magnesium Sulfate (Magnesium Sulfate) 2 gm in 50 mls @ 50 mls/hr IV UD PRN PRN Reason: MG = or < 1.7 Insulin Glargine (Insulin Glargine, Human 1 Unit/0.01 Ml) 20 unit SQ HS [facility] Last Admin: 06/27/20 21:57 Dose: 20 units Documented by: Insulin Human Lispro (Insulin Lispro 1 Unit/0.01 Ml Unit) 0 unit SQ [facility]; Protocol Last Admin: 06/28/20 12:12 Dose: Not Given Documented by: Lisinopril (Lisinopril 20 Mg Tablet) 40 mg PO DAILY [facility] Last Admin: 06/28/20 08:37 Dose: 40 mg Documented by: Melatonin (Melatonin 3 Mg Tablet) 3 mg PO HSP PRN PRN Reason: Insomnia Metolazone (Metolazone 2.5 Mg Tablet) 2.5 mg PO DAILY@0830 [facility] Last Admin: 06/28/20 08:36 Dose: 2.5 mg Documented by: Ondansetron HCl (Ondansetron 4 Mg Odt Tablet) 4 mg SL Q4-6HP PRN; Protocol PRN Reason: Nausea And Vomiting Ondansetron HCl (Ondansetron 4 Mg/2 Ml Vial) 4 mg IV Q4-6HP PRN; Protocol PRN Reason: Nausea And Vomiting Polyethylene Glycol (Polyethylene Glycol 3350 17 Gm Packet) 17 gm PO DAILYP PRN PRN Reason: Constipation Potassium Chloride (Potassium Chloride 20 Meq Packet) 40 meq PO DAILYP PRN PRN Reason: K+ < 3.5 Senna/Docusate Sodium (Sennosides/Docusate Sodium 1 Tab Tablet) 1 tab PO [facility] Last Admin: 06/27/20 21:58 Dose: Not Given Documented by: Sodium Chloride (0.9 % Sodium Chloride 10 Ml Syringe) 10 ml IV Q8 [facility] Last Admin: 06/28/20 12:12 Dose: 10 ml Documented by: Spironolactone (Spironolactone 25 Mg Tablet) 50 mg PO DAILY [facility] Last Admin: 06/28/20 08:36 Dose: 50 mg Documented by: Tamsulosin HCl (Tamsulosin 0.4 Mg Capsule) 0.4 mg PO [facility] Last Admin: 06/27/20 21:57 Dose: 0.4 mg Documented by: A/P Narrative A/P Narrative: * Acute decompensated systolic heart failure, last known EF 20 to 25%. Follows up with Dr. Sean Barkley. Clinically improving with aggressive diuresis , continue beta-medhat/MAYELA inhibitor * Acute hypoxic respiratory failure-clinically improving with resolution of pulmonary edema. On 2 L oxygen. * Pulmonary edema with bilateral pleural effusion. No indication for thoracentesis. * Anasarca-over 15 pound weight gain. Improving with aggressive diuresis. Down 4-1/2 pounds since admission * Weakness and deconditioning-start aggressive PT OT * Chronic kidney disease stage IIIb, creatinine at baseline, avoid nephrotoxins * DM type II -CC diet/basal prandial insulin * PVD/history of right BKA. Stump care * History of CAD continue statin//beta-medhat/MAYELA inhibitor/spironolactone * History of PE currently not on anticoagulation * History of BPH continue Flomax * Hyperlipidemia start home dose statin Plan * Continue diuresis * Pre-existing medical mission management on home medications * Aggressive PT OT * Recommend continued outpatient cardiology follow-up and discharge * Wean oxygen as tolerated * Aggressive counseling for medication adherence Time Spent With Patient Time: Total time spent is greater than 50% in coordination of care (as documented) at patient's floor/unit and/or counseling patient: QUALITY VTE Deep Vein Thrombosis/Pulmonary Embolism Present on Admission: No
[2020-06-28] MEDS ORDERED: hydrALAZINE 20 MG/ML VIAL IV PRN (20:00)
[2020-06-28] MEDS: INSULIN GLARGINE, HUMAN 1 UNIT/0.01 ML SQ SCH (20:23)
[2020-06-28] MEDS: ATORVASTATIN 10 MG TABLET PO SCH (20:23)
[2020-06-28] MEDS: TAMSULOSIN 0.4 MG CAPSULE PO SCH (20:24)
[2020-06-28] MEDS: SENNOSIDES/DOCUSATE SODIUM 1 TAB TABLET PO SCH (20:43)
[2020-06-29] MEDS: 0.9 % SODIUM CHLORIDE 10 ML SYRINGE IV SCH (06:09)
[2020-06-29] MEDS: FUROSEMIDE 40 MG/4 ML VIAL IV SCH (06:09)
[2020-06-29 06:29] LABS: Basophils # (Auto) 0.04 K/mcL (0.00-0.20); Basophils % (Auto) 0.7 % (0.0-2.0); Eosinophils # (Auto) 0.15 K/mcL (0.00-0.70); Eosinophils % (Auto) 2.5 % (0.0-7.0); Hemoglobin 11.6 g/dL (13.5-16.5); Lymphocytes # (Auto) 1.04 K/mcL (1.50-4.80); Lymphocytes % (Auto) 17.1 % (15.0-49.0); Mean Cell Volume 93.4 fL (80.0-100.0); Mean Corpuscular HGB Conc 31.4 g/dL (31.0-36.0); Mean Platelet Volume 10.5 fL (7.4-10.4); Monocytes % (Auto) 11.5 % (1.0-12.0); Neutrophils % (Auto) 68.2 % (38.0-78.0); Platelet Count 112 K/mcL (140-440); RBC 3.96 M/mcL (4.50-5.90); Red Cell Distribution Width 13.6 % (11.5-14.5); WBC 6.1 K/mcL (4.5-11.0)
--- NOTE | 2020-06-29 06:45 | XRay Report ---
CLINICAL INFORMATION: Interval Change COMPARISON: Two-view chest x-ray 06/27/2020 FINDINGS: The heart has decreased in size, but remains moderately enlarged. Mediastinum is unremarkable. Pulmonary vessels have returned to normal in caliber. Small/moderate bilateral pleural effusions are unchanged. Mild bibasilar airspace disease has worsened - likely atelectasis.. IMPRESSION: Interval resolution acute CHF Small/ moderate bilateral pleural effusions unchanged Moderate bibasilar airspace disease progressing. It is likely atelectasis. Developing infiltrate or aspiration not excluded Interpreted and Authenticated by: Elmo Youngblood 06/29/20
[2020-06-29] MEDS: INSULIN LISPRO 1 UNIT/0.01 ML UNIT SQ SCH ×2 (07:06→11:45)
[2020-06-29 08:00] LABS: ALT/SGPT 9 U/L (<40); AST/SGOT 16 U/L (<40); Albumin 2.2 gm/dL (3.2-5.2); Albumin/Globulin Ratio 0.7 (1.0-2.3); Alkaline Phosphatase 91 U/L (39-117); Bilirubin,Direct 0.2 mg/dL (<0.3); Bilirubin,Total 0.5 mg/dL (0.1-1.0); Blood Urea Nitrogen 19 mg/dL (8-23); Calcium 7.9 mg/dL (8.6-10.4); Carbon Dioxide 35 mmol/L (22-30); Chloride 101 mmol/L (96-108); Glomerular Filtration Rate 41; Glucose 72 mg/dL (70-105); Lactate Dehydrogenase 217 U/L (135-225); Phosphorous 3.9 mg/dL (2.5-4.5); Triglycerides 66 mg/dL (<150); Uric Acid 8.1 mg/dL (2.5-8.0)
[2020-06-29] MEDS: FERROUS SULFATE 325 MG TABLET PO SCH (08:48)
[2020-06-29] MEDS: BISOPROLOL 5 MG TABLET PO SCH (08:54)
[2020-06-29] MEDS: HEPARIN 5,000 UNIT/ML VIAL SQ SCH (08:55)
[2020-06-29] MEDS: METOLAZONE 2.5 MG TABLET PO SCH (08:55)
[2020-06-29] MEDS: SPIRONOLACTONE 25 MG TABLET PO SCH (08:55)
[2020-06-29] MEDS: LISINOPRIL 20 MG TABLET PO SCH (08:55)
[2020-06-29] MEDS: DOCUSATE SODIUM 100 MG CAPSULE PO SCH (08:56)
--- NOTE | 2020-06-29 10:51 | Discharge Summary ---
Discharge Provider Provider Patient information: Note initiated : 06/29/20 at 10:48 am Service Date, if different from initiated Date: [] Patient: Florencio Grace a 65 y/o M admitted on 06/27/20 for shortness of breath. Discharge diagnosis * A/c decompensated systolic heart failure, last known EF 20 to 25%. Follows up with Dr. Sean Barkley. Clinically improving with aggressive diuresis , continue beta-medhat/MAYELA inhibitor * Acute hypoxic respiratory failure-clinically improved. Currently on room air * Pulmonary edema with bilateral pleural effusion. Improved with diuresis * Anasarca-over 15 pound weight gain. Improved with diuresis * Weakness and deconditioning-start aggressive PT OT * Chronic kidney disease stage IIIb, creatinine at baseline, avoid nephrotoxins * DM type II -CC diet/basal prandial insulin * PVD/history of right BKA. Stump care * History of CAD continue statin//beta-medhat/MAYELA inhibitor/spironolactone * History of PE currently not on anticoagulation * History of BPH continue Flomax * Hyperlipidemia start home dose statin Brief hospital course Interval history: Mr. Grace is a 65 year old M with a history of dilated cardiomyopathy/20% EF and recurrent pleural effusion requiring thoracentesis. Patient has multiple hospitalization for decompensated heart failure in the recent times. He has however not followed up with a cardiology since early 2019. He presents to the ER with 2 weeks onset of worsening shortness of breath/increasing weight gain in excess of 15 pounds despite increasing his regular diuretics and associated nonproductive cough. Is currently on beta- medhat/MAYELA inhibitor along with torsemide and spironolactone. He denies taking NSAIDs or excessive salt or exposure to sick contacts. He denies diarrhea, lightheadedness, dizziness, bleeding. He presents today with above symptoms similar to what led to prior hospitalizations. Initial work-up in the ER was consistent with acute decompensated heart failure with chest imaging shows stable pleural effusion/pulmonary edema. Patient was started on diuretics/cardiology was consulted and requested hospitalization for continued diuresis with advised to have patient follow-up as outpatient with cardiology on discharge. Subsequently hospital service was consulted for admission. At the time of my evaluation patient is alert and oriented. He was able to answer most of the questions. He endorses to orthopnea and increasing lower extremity swelling. He is normally able to get around and lives alone however over the last couple of weeks has not been able to function due to progressive shortness of breath. He denies associated fever, rash, joint pain, URI symptoms. 06/28-patient doing well. Over 2000 cc net negative fluid balance. Continue diuretics. Feeling a lot better. Improved lymphedema. Improved shortness of breath and orthopnea. No telemetry events. On further questioning patient does endorse that he misses his doses for the sake of convenience when he is out shopping and that leads to fluid buildup. Adherence is clearly not of concern here due to repeated hospitalizations for fluid buildup due to inadequate diuresis. Aggressively counseled to continue diuretics and daily weight monitoring. 06/29-patient doing remarkably better. Currently on 1 L oxygen. Weaning as tolerated. Feels at baseline. Requesting discharge. In excess of 5000 cc net negative fluid balance with diuresis. Patient aggressively counseled to continue home dose diuretics with daily weight monitoring. Discharge instructions as below Date of admission: 06/27/20 17:20 Discharge date: 06/29/20 Primary care physician: Edward Dickson MD Consults: 06/27/20 15:40 Consult to Physician [CONS] Stat Comment: Consulting Provider: Isidro Olmos Reason For Exam: Physician to Consult Discharge Meds Discharge Medications Home Medications tamsulosin 0.4 mg PO HS 03/08/18 [History Confirmed 06/27/20 Last Taken 10/23/19 21:00] spironolactone 50 mg tablet 50 mg PO QAM 05/05/19 [History Confirmed 06/27/20 Last Taken 10/23/19 08:00] bisoprolol fumarate 5 mg PO DAILY 06/15/19 [History Confirmed 06/27/20 Last Taken 10/23/19 08:00] atorvastatin 10 mg PO QHS 10/24/19 [History Confirmed 06/27/20 Last Taken 10/23/19 21:00] lisinopril 40 mg PO QDAY 10/24/19 [History Confirmed 06/27/20 Last Taken 10/23/19 08:00] torsemide 10 mg PO DAILY 10/24/19 [History Confirmed 06/27/20 Last Taken 10/23/19 08:00] insulin glargine 100 unit/mL subcutaneous solution 20 unit SUB-Q HS unit 11/30/19 [History Confirmed 06/27/20 Last Taken Unknown] ferrous sulfate 325 mg (65 mg iron) tablet,delayed release 325 mg PO BID 02/29/20 [History Confirmed 06/27/20 Last Taken Unknown] COURSE Hospital Course Hospital course: . Discharge diagnosis: Decompensated heart failure Time Spent with Patient Time attestation: Total time spent providing and/or coordinating discharge services: EXAM Constitutional Vitals: Temp Pulse Resp BP Pulse Ox 97.2 F 59 L 22 154/66 93 06/29/20 08:00 06/29/20 10:00 06/29/20 10:00 06/29/20 10:00 06/29/20 10:00 Discharge Data Data Completed and Pending Labs on day of discharge: Labs from last 24 hours 06/29/20 06/29/20 05:17 05:16 WBC 6.1 RBC 3.96 L Hgb 11.6 L Hct 37.0 L MCV 93.4 MCH 29.3 MCHC 31.4 RDW 13.6 Plt Count 112 L MPV 10.5 H Neut % (Auto) 68.2 Lymph % (Auto) 17.1 Lyman % (Auto) 11.5 Eos % (Auto) 2.5 Baso % (Auto) 0.7 Lymph # (Auto) 1.04 L Lyman # (Auto) 0.70 Eos # (Auto) 0.15 Baso # (Auto) 0.04 Absolute Neutrophils 4.16 Sodium 143 Potassium 3.6 Chloride 101 Carbon Dioxide 35 H Anion Gap 7.0 L BUN 19 Creatinine 1.7 H GFR Calculation 41 Glucose 72 Uric Acid 8.1 H Calcium 7.9 L Phosphorus 3.9 Magnesium 2.0 Total Bilirubin 0.5 Direct Bilirubin 0.2 GGT 20 AST 16 ALT 9 Alkaline Phosphatase 91 Lactate Dehydrogenase 217 Total Protein 5.2 L Albumin 2.2 L Globulin 3.0 Albumin/Globulin Ratio 0.7 L Triglycerides 66 Discharge Plan Patient/Caregiver Discharge Instructions Activity: increase activity as tolerated Diet: Low Sodium (2gm) Instructions: Furosemide (By mouth), Heart Failure (GEN), Polyuria (GEN) Activity Restrictions/Additional Instructions: Follow-up primary care physician/cardiology in 1 to 2 weeks Continue diuretics and daily weight monitoring return to ER if worsening fever chills shortness of breath or increase Lymphedema This discharge packet is provided to you to help keep you informed about your care. We want to ensure you get everything you need when you go home. You will also be receiving a call from us in a few days to follow up with you and see how you are doing since your discharge. This gives us a chance to listen to any concerns you maybe experiencing since you were discharged or any additional needs you may have, as well as providing us feedback on your care experience. We strive to always provide excellent care and thank you for your feedback and for choosing [facility]. Prescriptions: Continued spironolactone 50 mg tablet 50 mg PO QAM RF: 0 insulin glargine 100 unit/mL solution 20 unit SUB-Q HS RF: 0 ferrous sulfate 325 mg (65 mg iron) tablet,delayed release (DR/EC) 325 mg PO BID RF: 0 tamsulosin 0.4 MG capsule 0.4 mg PO HS RF: 0 bisoprolol fumarate 5 MG tablet 5 mg PO DAILY RF: 0 atorvastatin 10 mg Tablet 10 mg PO QHS RF: 0 lisinopril 40 mg Tablet 40 mg PO QDAY RF: 0 torsemide 10 MG tablet 10 mg PO DAILY RF: 0 Follow Up Plan Follow up with: Lyn Mayo PA-C [Physician] - (A referral has been sent, they will contact you to schedule an appointment) Demetrius Wright MD [Physician] - 07/11/20 4:15 am Stevie Meeks MD [Physician] - (Dr. Meeks's office is closed on Fridays, they will contact you to schedule an appointment. If you do not hear from them within a couple of days, please call them ) Patient Disposition: Home, Self-Care Prognosis: Serious Rehab Potential: Fair I certify that the patient requires SNF services: No Overall status at discharge: patient is progressing back to baseline Discharge Orders: Discharge Order (Routine); Ordered 06/29/20 Ordered By: Isidro TORRES VTE Deep Vein Thrombosis/Pulmonary Embolism Present on Admission: No
== END 2020-06-29 14:06 | disposition home or self-care (01) | DRG 291 ==
LOC: ED 10:51 → ICU 17:20
PROVIDERS: ADMIT Internal Medicine; ATTEND Internal Medicine

== ENCOUNTER 2021-01-22 05:51 | Inpatient (IN) ==
--- NOTE | 2021-01-22 06:02 | Emergency Department Note ---
HPI General Chief complaint: Shortness of Breath/Dyspnea Stated complaint: sob, didnt take lasix Time Seen by Provider: 01/22/21 05:55 Mode of arrival: wheelchair History of Present Illness HPI Narrative: Narrative: Patient with a history of hypertension diabetes PE, hypercoagulable state, CHF presents to the ED with mild cough for several days and worsening left lower extremity edema and recently was on a long multiday road trip and did not take his Lasix for 8 to 10 days. No fever no chills no chest pain no shortness of breath. Did have a couple falls as well and thinks he has a bruise over his left thigh. No other complaints Related Data Home Medications Medication Instructions Recorded Confirmed tamsulosin 0.4 mg PO HS 03/08/18 09/13/20 spironolactone 50 mg tablet 50 mg PO QAM 05/05/19 09/13/20 bisoprolol fumarate 5 mg PO DAILY 06/15/19 09/13/20 atorvastatin 10 mg PO QHS 10/24/19 09/13/20 insulin glargine 100 unit/mL 20 unit SUB-Q HS unit 11/30/19 09/13/20 subcutaneous solution ferrous sulfate 325 mg (65 mg 325 mg PO BID 02/29/20 09/13/20 iron) tablet,delayed release sacubitril 24 mg-valsartan 26 mg 1 tab PO BID 09/13/20 09/13/20 tablet torsemide 10 mg tablet 20 mg PO DAILY tab 09/13/20 09/13/20 Allergies Allergy/AdvReac Type Severity Reaction Status Date / Time No Known Drug Allergies Allergy Verified 01/22/21 05:53 Review of Systems ROS ROS Narrative: Narrative: at least 10 systems reviewed and otherwise acutely negative except as in the HPI PFSH Narrative Patient History Narrative: Narrative: Medical/Surgical/Family History All Active Problems (Updated 01/22/21 @ 06:46 by Prieto Ferro DO) Congestive heart failure (Chronic) SOB (shortness of breath) (Chronic) Diabetes (Chronic) Hypertension (Chronic) Anemia (Chronic) Dermatitis of lower extremity (Chronic) Pedal edema (Chronic) Hypercoagulable state (Chronic) Pleural effusion (Acute) CKD (chronic kidney disease) stage 3, GFR 30-59 ml/min (Chronic) Hyperphosphatemia (Acute) Non compliance with medical treatment (Chronic) Morbid obesity with BMI of 45.0-49.9, adult (Chronic) detention (current) use of 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 (Chronic) Weakness (Acute) Pleural effusion due to CHF (congestive heart failure) (Acute) Anemia in chronic kidney disease (CKD) (Acute) Hypoxia (Acute) Hypokalemia (Acute) CHF, acute on chronic (Acute) Community acquired pneumonia (Acute) Heart failure, systolic, with acute decompensation (Acute) CKD stage G3a/A3, GFR 45-59 and albumin creatinine ratio >300 mg/g (Chronic) Volume overload state of heart (Chronic) Chest pain (Acute) CHF (congestive heart failure) (Acute) Pleural effusion (Acute) CKD (chronic kidney disease) (Acute) Diabetes (Acute) Hypocalcemia (Chronic) CKD (chronic kidney disease), stage III (Acute) Vitamin D insufficiency (Acute) Acute on chronic combined systolic (congestive) and diastolic (congestive) heart failure (Acute) Abnormal CXR (chest x-ray) (Acute) CHF (congestive heart failure) (Acute) Hypoxia (Acute) CKD stage G3b/A3, GFR 30-44 and albumin creatinine ratio >300 mg/g (Acute) Acute CHF (congestive heart failure) (Acute) Medical History (Updated 01/22/21 @ 06:46 by Prieto Ferro DO) JERMAN (acute kidney injury) Anemia Ankle fracture Chronic wound of extremity CKD (chronic kidney disease) stage 3, GFR 30-59 ml/min Colon cancer Community acquired pneumonia Congestive heart failure Dermatitis of lower extremity Diabetes Heart failure with acute decompensation, type unknown Hypercoagulable state Hyperphosphatemia Hypertension Localized edema due to fluid overload 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 of 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 Warfarin (for hypercoagulable state?) Morbid obesity with BMI of 45.0-49.9, adult Non compliance with medical treatment Osteomyelitis of ankle Pedal edema Pleural effusion s/p thoracentesis 01/2019 Pulmonary edema Pulmonary embolism SOB (shortness of breath) Surgical History History of open reduction and internal fixation (ORIF) procedure Right Arm History of orthopedic surgery Irrigation and debridement 2017 Right Ankle History of partial colectomy History of total replacement of right ankle 11/12/17 Dr Muro Hx of right BKA Family History Mother Bruising Bleeding Clotting disorder Father Prostate cancer Social History Smoking Status: Never smoker Alcohol Intake Frequency: does not drink Substance Use: does not use Exam Narrative Narrative: Narrative:Constitutional: normally developed, nontoxic appearing. Head: Normocephalic, atraumatic, Eyes: No Icterus, ENT: Moist mucus membranes, Neck: Supple, Cardiac: Normal heart sounds, palpable radial pulses, 2+ left lower extremity edema. Pulmonary: Normal respiratory effort. Breath sounds clear, no wheeze, rhonchi, rales, Gastrointestinal: Abdomen soft, non-distended, non-tender, Musculoskeletal: Chronic right lower extremity amputation, left lower extremity has 2+ pitting edema. Left proximal medial thigh has a bit of induration not fluctuant not significantly warm, possibly hematoma versus developing infection Skin: warm, dry Neuro: Alert Course Vital Signs Vital signs: Vital Signs Temperature 36.6 C 01/22/21 05:54 Pulse Rate 66 01/22/21 05:54 Respiratory Rate 20 01/22/21 05:54 Blood Pressure 155/89 01/22/21 05:54 Pulse Oximetry (%) 90 01/22/21 05:54 Temperature 36.6 C 01/22/21 05:54 Pulse Rate 71 01/22/21 06:31 Respiratory Rate 20 01/22/21 05:54 Blood Pressure 103/53 01/22/21 06:31 Pulse Oximetry (%) 96 01/22/21 06:31 MDM MDM Narrative Medical decision making narrative: Narrative: Patient with cough and leg swelling after not taken his Lasix for 10 days most likely a flareup of some volume overload. CHF work-up is initiated, he has no chest pain or shortness of breath however and is nontoxic-appearing, also consideration for DVT will obtain duplex ultrasound, he has a small area of induration on his thigh possibly developing infection or a hematoma related to recent fall but do not suspect fracture as he is able to ambulate and move his leg without pain duplex ultrasound should help differentiate this area Chest x-ray is consistent with CHF, laboratory results and ultrasound still pending, patient will be signed out to Dr. Bella pending results and final disposition Lab Data Result diagrams: 01/22/21 06:12 01/22/21 06:12 Discharge Plan Patient/Caregiver Discharge Instructions Pt seen by AGRISCIENCE INSTRUCTOR/PA only: No Clinical Impression: Pedal edema Patient Disposition: Still a Patient Condition: Fair Follow up with: Edward Dickson MD [Primary Care Provider] - Prescriptions: No Action spironolactone 50 mg tablet 50 mg PO QAM RF: 0 insulin glargine 100 unit/mL solution 20 unit SUB-Q HS RF: 0 ferrous sulfate 325 mg (65 mg iron) tablet,delayed release (DR/EC) 325 mg PO BID RF: 0 Entresto 24-26 mg tablet 1 tab PO BID RF: 0 tamsulosin 0.4 MG capsule 0.4 mg PO HS RF: 0 bisoprolol fumarate 5 MG tablet 5 mg PO DAILY RF: 0 atorvastatin 10 mg Tablet 10 mg PO QHS RF: 0 torsemide 10 mg tablet 20 mg PO DAILY RF: 0
--- NOTE | 2021-01-22 06:33 | XRay Report ---
INDICATION: SOB, h/o CHF, TECHNIQUE: AP portable semiupright chest x-ray COMPARISON: Previous chest x-rays dated 12/10/2020, 11/20/2020, 06/29/2020 FINDINGS: Lungs:Infiltrates consistent with pulmonary edema. No parenchymal consolidation Heart, vascular:There is cardiomegaly. Pulmonary vascularity is prominent. Appearance is consistent with congestive heart failure Mediastinum, molly:No mediastinal widening. No hilar mass Pleura:No definite pleural effusion demonstrated on AP, semiupright radiograph Skeletal:Negative. IMPRESSION: Findings consistent with congestive heart failure Interpreted and Authenticated by: Elmo Soliman 01/22/21
[2021-01-22 06:58] LABS: Basophils # (Auto) 0.04 K/mcL (0.00-0.30); Basophils % (Auto) 0.5 % (0.0-2.0); Eosinophils # (Auto) 0.17 K/mcL (0.00-0.70); Eosinophils % (Auto) 1.9 % (0.0-7.0); Hematocrit 35.3 % (40.1-51.0); Hemoglobin 10.9 g/dL (13.7-17.5); Lymphocytes # (Auto) 0.82 K/mcL (1.50-4.80); Lymphocytes % (Auto) 9.3 % (15.5-49.0); Mean Cell Volume 94.9 fL (80.0-100.0); Mean Corpuscular HGB Conc 30.9 g/dL (31.0-36.0); Mean Platelet Volume 9.9 fL (7.4-10.4); Monocytes # (Auto) 0.91 K/mcL (0.10-0.90); Monocytes % (Auto) 10.4 % (1.0-12.0); Neutrophils % (Auto) 77.9 % (38.0-78.0); Platelet Count 182 K/mcL (140-440); RBC 3.72 M/mcL (4.63-6.08); Red Cell Distribution Width 15.7 % (11.5-14.5); WBC 8.8 K/mcL (4.5-11.0)
[2021-01-22 07:24] LABS: Blood Urea Nitrogen 23 mg/dL (8-23); Calcium 7.8 mg/dL (8.6-10.4); Carbon Dioxide 26 mmol/L (22-30); Chloride 106 mmol/L (96-108); Glomerular Filtration Rate 36; Glucose 147 mg/dL (70-105)
[2021-01-22] MEDS ORDERED: ASPIRIN 81 MG TAB.CHEW CHEWED ONE (07:48)
[2021-01-22] MEDS ORDERED: FUROSEMIDE 40 MG/4 ML VIAL IV ONE ×2 (07:48→09:07)
--- NOTE | 2021-01-22 08:04 | Emergency Department Note ---
Lower Extremity Injury HPI General Chief Complaint: Shortness of Breath/Dyspnea Stated Complaint: sob, didnt take lasix Time Seen by Provider: 01/22/21 05:55 Source: patient, RN notes reviewed, old records reviewed and other (Seen by Dr. Carter assumed care at [address] Carter's note.) Mode of arrival: wheelchair Limitations: no limitations History of Present Illness HPI Narrative: Narrative: Mr. Grace is a 65-year-old male complaining of pain and swelling to his left lower extremity. Patient is a congestive heart failure patient and did not take his diuretics on a road trip over the last 8 days. Patient did not have ready access to a bathroom and was afraid that he would urinate on himself. Patient states that he had fallen a couple of times during the trip and is complaining of pain and swelling to his proximal medial thigh. Patient also complains of marked swelling and edema to his entire left lower extremity. Patient complains of orthopnea PND dyspnea on exertion with shortness of breath and wheezing. Seen by Dr. Carter prior to my arrival some care at 0 700. 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 complaint: leg injury (Left thigh) Onset (ago): day(s) Injury: Left: thigh (TTP proximal medial left thigh) Type of Injury: unknown Place: other Severity: moderate Improves with: immobilization Worsens with: movement and palpation Context: fall and other (Noncompliant with diuretics) Associated symptoms: Reports swelling Other symptoms: SOB Related Data Home Medications Medication Instructions Recorded Confirmed tamsulosin 0.4 mg PO HS 03/08/18 09/13/20 spironolactone 50 mg tablet 50 mg PO QAM 05/05/19 09/13/20 bisoprolol fumarate 5 mg PO DAILY 06/15/19 09/13/20 atorvastatin 10 mg PO QHS 10/24/19 09/13/20 insulin glargine 100 unit/mL 20 unit SUB-Q HS unit 11/30/19 09/13/20 subcutaneous solution ferrous sulfate 325 mg (65 mg 325 mg PO BID 02/29/20 09/13/20 iron) tablet,delayed release sacubitril 24 mg-valsartan 26 mg 1 tab PO BID 09/13/20 09/13/20 tablet torsemide 10 mg tablet 20 mg PO DAILY tab 09/13/20 09/13/20 Allergies Allergy/AdvReac Type Severity Reaction Status Date / Time No Known Drug Allergies Allergy Verified 01/22/21 05:53 Review of Systems ROS ROS Narrative: Narrative: All systems ED: reviewed and negative except as stated. PFSH Narrative Patient History Narrative: Narrative: Medical/Surgical/Family History All Active Problems (Updated 01/22/21 @ 14:03 by Bossman Bella MD) Congestive heart failure (Chronic) SOB (shortness of breath) (Chronic) Diabetes (Chronic) Hypertension (Chronic) Anemia (Chronic) Dermatitis of lower extremity (Chronic) Pedal edema (Chronic) Hypercoagulable state (Chronic) Pleural effusion (Acute) CKD (chronic kidney disease) stage 3, GFR 30-59 ml/min (Chronic) Hyperphosphatemia (Acute) Non compliance with medical treatment (Chronic) Morbid obesity with BMI of 45.0-49.9, adult (Chronic) skilled nursing (current) use of 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 (Chronic) Weakness (Acute) Pleural effusion due to CHF (congestive heart failure) (Acute) Anemia in chronic kidney disease (CKD) (Acute) Hypoxia (Acute) Hypokalemia (Acute) CHF, acute on chronic (Acute) Community acquired pneumonia (Acute) Heart failure, systolic, with acute decompensation (Acute) CKD stage G3a/A3, GFR 45-59 and albumin creatinine ratio >300 mg/g (Chronic) Volume overload state of heart (Chronic) Chest pain (Acute) CHF (congestive heart failure) (Acute) Pleural effusion (Acute) CKD (chronic kidney disease) (Acute) Diabetes (Acute) Hypocalcemia (Chronic) CKD (chronic kidney disease), stage III (Acute) Vitamin D insufficiency (Acute) Acute on chronic combined systolic (congestive) and diastolic (congestive) heart failure (Acute) Abnormal CXR (chest x-ray) (Acute) CHF (congestive heart failure) (Acute) Hypoxia (Acute) CKD stage G3b/A3, GFR 30-44 and albumin creatinine ratio >300 mg/g (Acute) Acute CHF (congestive heart failure) (Acute) Hematoma (Acute) Medical History (Updated 01/22/21 @ 14:03 by Bossman Bella MD) JERMAN (acute kidney injury) Anemia Ankle fracture Chronic wound of extremity CKD (chronic kidney disease) stage 3, GFR 30-59 ml/min Colon cancer Community acquired pneumonia Congestive heart failure Dermatitis of lower extremity Diabetes Heart failure with acute decompensation, type unknown Hypercoagulable state Hyperphosphatemia Hypertension Localized edema due to fluid overload 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 Warfarin (for hypercoagulable state?) Morbid obesity with BMI of 45.0-49.9, adult Non compliance with medical treatment Osteomyelitis of ankle Pedal edema Pleural effusion s/p thoracentesis 01/2019 Pulmonary edema Pulmonary embolism SOB (shortness of breath) Surgical History History of open reduction and internal fixation (ORIF) procedure Right Arm History of orthopedic surgery Irrigation and debridement 2017 Right Ankle History of partial colectomy History of total replacement of right ankle 11/12/17 Dr Muro Hx of right BKA Family History Mother Bruising Bleeding Clotting disorder Father Prostate cancer Social History Smoking Status: Never smoker Alcohol Intake Frequency: does not drink Substance Use: does not use Exam Narrative Narrative: Narrative: General Limitations: no limitations General appearance: Present alert, in no apparent distress and obese Head Head: Present atraumatic, normocephalic and normal inspection Eye Eye: Present EOMI and other (Blind in right eye) ENT ENT: Present normal exam and mucous membranes moist Neck Neck: Present normal inspection and full ROM; Absent tenderness and meningismus Chest Chest: Present normal inspection; Absent tenderness Respiratory Respiratory: Present rales/crackles and decreased breath sounds; Absent respiratory distress Cardiovascular Cardiovascular: Present regular rate, normal rhythm, systolic murmur and JVD Adbominal Abdominal: Present soft and other (Large pannus); Absent distention, tenderness, guarding, rebound and rigidity Extremities Extremities: Present tenderness (TTP left proximal medial thigh, marked erythema swelling, edema left lower extremity), pedal edema, pretibial edema and other (Right BKA) Neurological Neurological: Present alert and oriented X3 Psychiatric Psychiatric: Present normal affect and normal mood Skin Skin: Present warm (WNL), rash and erythema Course Vital Signs Vital signs: Vital Signs Temperature 97.9 F 01/22/21 05:54 Pulse Rate 66 01/22/21 05:54 Respiratory Rate 20 01/22/21 05:54 Blood Pressure 155/89 01/22/21 05:54 Pulse Oximetry (%) 90 01/22/21 05:54 Temperature 97.9 F 01/22/21 05:54 Pulse Rate 72 01/22/21 13:01 Respiratory Rate 22 01/22/21 13:01 Blood Pressure 128/64 01/22/21 13:01 Pulse Oximetry (%) 95 01/22/21 13:01 Procedures I/D Consent obtained: verbal consent Site: thigh Side (if applicable): left Local Anesthetic: lidocaine 1% Amount of Anesthesia Used (mL): 5 Technique: needle aspiration (18-gauge needle with through 5 cc of sanguinous discharge.) Amount of fluid: 5 Irrigation: No Packing used?: none MDM MDM Narrative Medical decision making narrative: Narrative: Patient with congestive heart failure on chest x-ray BNP is 34,366. CT scan without contrast was ordered secondary to the patient's elevated creatinine of 1.9 and low GFR Lab Data Lab results reviewed: Yes I reviewed the patient's lab results. Result diagrams: 01/22/21 06:12 01/22/21 06:12 Labs: Lab Results 01/22/21 01/22/21 01/22/21 Range/Units 06:12 06:12 06:12 WBC 8.8 (4.5-11.0) K/mcL RBC 3.72 L (4.63-6.08) M/mcL Hgb 10.9 L (13.7-17.5) g/dL Hct 35.3 L (40.1-51.0) % MCV 94.9 (80.0-100.0) fL MCH 29.3 (26.0-34.0) pg MCHC 30.9 L (31.0-36.0) g/dL RDW 15.7 H (11.5-14.5) % Plt Count 182 (140-440) K/mcL MPV 9.9 (7.4-10.4) fL Neut % (Auto) 77.9 (38.0-78.0) % Lymph % (Auto) 9.3 L (15.5-49.0) % Posey % (Auto) 10.4 (1.0-12.0) % Eos % (Auto) 1.9 (0.0-7.0) % Baso % (Auto) 0.5 (0.0-2.0) % Lymph # (Auto) 0.82 L (1.50-4.80) K/mcL Posey # (Auto) 0.91 H (0.10-0.90) K/mcL Eos # (Auto) 0.17 (0.00-0.70) K/mcL Baso # (Auto) 0.04 (0.00-0.30) K/mcL Absolute Neutrophils 6.84 (1.80-8.00) K/mcL Sodium 143 (133-145) mmol/L Potassium 3.9 (3.3-5.1) mmol/L Chloride 106 (96-108) mmol/L Carbon Dioxide 26 (22-30) mmol/L Anion Gap 11.0 (8.0-16.0) BUN 23 (8-23) mg/dL Creatinine 1.9 H (0.7-1.2) mg/dL GFR Calculation 36 Glucose 147 H (70-105) mg/dL Calcium 7.8 L (8.6-10.4) mg/dL Troponin T 0.05 H* (<0.03) ng/mL NT-Pro-B Natriuret Pep 11464.0 H (<125.0) pg/mL 01/22/21 Range/Units 10:11 WBC (4.5-11.0) K/mcL RBC (4.63-6.08) M/mcL Hgb (13.7-17.5) g/dL Hct (40.1-51.0) % MCV (80.0-100.0) fL MCH (26.0-34.0) pg MCHC (31.0-36.0) g/dL RDW (11.5-14.5) % Plt Count (140-440) K/mcL MPV (7.4-10.4) fL Neut % (Auto) (38.0-78.0) % Lymph % (Auto) (15.5-49.0) % Posey % (Auto) (1.0-12.0) % Eos % (Auto) (0.0-7.0) % Baso % (Auto) (0.0-2.0) % Lymph # (Auto) (1.50-4.80) K/mcL Posey # (Auto) (0.10-0.90) K/mcL Eos # (Auto) (0.00-0.70) K/mcL Baso # (Auto) (0.00-0.30) K/mcL Absolute Neutrophils (1.80-8.00) K/mcL Sodium (133-145) mmol/L Potassium (3.3-5.1) mmol/L Chloride (96-108) mmol/L Carbon Dioxide (22-30) mmol/L Anion Gap (8.0-16.0) BUN (8-23) mg/dL Creatinine (0.7-1.2) mg/dL GFR Calculation Glucose (70-105) mg/dL Calcium (8.6-10.4) mg/dL Troponin T 0.05 H* (<0.03) ng/mL NT-Pro-B Natriuret Pep (<125.0) pg/mL ED POC Tests ED POC Tests: GIOVANNA - SARS Antigen Negative Radiology Data Radiology results reviewed: Yes I reviewed the patient's radiology results. Radiology results narrative: Chest x-ray is congestive heart failure. Doppler ultrasound did not identify a DVT however they were unable to visualize the entire collecting systems secondary to patient's marked edema. A fluid collection in the thigh was noted. Pulse Oximetry Data Pulse Ox %: 99 Interpretation: 99% on room air is within normal limit Discharge Plan Patient/Caregiver Discharge Instructions Pt seen by LEARNING COORDINATOR/PA only: No Clinical Impression: Pedal edema, Congestive heart failure, Hematoma Patient Disposition: Xfer As Inpt ([facility]) Condition: Fair Follow up with: Edward Dickson MD [Primary Care Provider] - Prescriptions: No Action spironolactone 50 mg tablet 50 mg PO QAM RF: 0 insulin glargine 100 unit/mL solution 20 unit SUB-Q HS RF: 0 ferrous sulfate 325 mg (65 mg iron) tablet,delayed release (DR/EC) 325 mg PO BID RF: 0 Entresto 24-26 mg tablet 1 tab PO BID RF: 0 tamsulosin 0.4 MG capsule 0.4 mg PO HS RF: 0 bisoprolol fumarate 5 MG tablet 5 mg PO DAILY RF: 0 atorvastatin 10 mg Tablet 10 mg PO QHS RF: 0 torsemide 10 mg tablet 20 mg PO DAILY RF: 0
[2021-01-22] MEDS ORDERED: HYDROmorphone 0.5 MG/0.5 ML SYRINGE IV ONE (08:12)
[2021-01-22] MEDS ORDERED: ONDANSETRON 4 MG/2 ML VIAL IV ONE (08:12)
--- NOTE | 2021-01-22 08:15 | Ultrasound Report ---
INDICATION: LLE swelling, recent multi-day car trip COMPARISON: None. TECHNIQUE: Grayscale and color flow Doppler spectral imaging of the deep venous system in the left lower extremity. FINDINGS: There is marked swelling of the left lower extremity. Left common femoral vein, profunda femoris vein, proximal femoral vein are negative. Proximal greater saphenous vein is negative. Deep venous system from the mid thigh caudally to the ankle is not visualized due to severe soft tissue swelling There is a focal fluid collection in the medial thigh. This measures approximately 6.1 x 2.3 x 2.9 cm. This is complex. This may be abscess or hematoma. There is no acoustic shadowing. No detectable foreign body. IMPRESSION: 1. Very limited evaluation due to severe leg swelling 2. Negative left common femoral vein, proximal femoral vein, profunda femoris vein. 3. Deep system caudal to the mid thigh is not imaged 4. 6 cm complex fluid collection in the medial thigh consistent with abscess or hematoma Interpreted and Authenticated by: Elmo Soliman 01/22/21
--- NOTE | 2021-01-22 08:58 | Cat Scan Report ---
INDICATION: Fluid collection on US. TECHNIQUE: Axial noncontrast enhanced images through the left lower extremity. Sagittal and coronal reformatted images. COMPARISON: Previous ultrasound dated 01/22/2021. FINDINGS: Ultrasound demonstrates diffuse soft tissue swelling with a complex fluid collection in the medial left thigh. There is extensive edema with in the subcutaneous fat of the abdominal wall and flank. No focal subcutaneous mass or discrete fluid collection. There is a midline anterior abdominal wall hernia. There is protruding small bowel. No obstruction. No focal fluid collection. There is an intraperitoneal catheter. There is extensive atherosclerotic disease with calcification of the common femoral artery, superficial femoral artery, popliteal artery, posterior tibial artery, peroneal artery, posterior tibial artery. There is diffuse subcutaneous edema extending the length of the left lower extremity. There are multiple calcifications within the soft tissues of the left lower extremity at the level of the mid and distal tibia. These may be phleboliths. A well-defined focal fluid collection is not identified. There is no soft tissue gas. No evidence for necrotizing fasciitis. No evidence for compartment syndrome. The muscle bundles and intramuscular fascia appear normal. No deep fluid collections. No evidence for osteomyelitis. There is no radiopaque foreign body. IMPRESSION: 1. Midline lower anterior abdominal wall hernia containing small bowel. No mechanical small bowel obstruction 2. Extensive subcutaneous edema. A well-defined discrete fluid collection is not identified on CT scan. No soft tissue gas bubbles or radiopaque foreign body 3. Extensive atherosclerotic calcification 4. Multiple calcifications in the subcutaneous soft tissues consistent with phleboliths Interpreted and Authenticated by: Elmo Soliman 01/22/21
--- NOTE | 2021-01-22 09:54 | EKG ---
[facility] Test Date: 2021-01-22 Pat Name: Florencio Grace Department: ED Room: Gender: Male Site Lead: 1685 : 1955 Requested By: Prieto Ferro Order Number: [id number] Reading MD: Robinson Inman Measurements Intervals [place] Rate: 95 P: 0 DC: 164 QRS: -58 QRSD: 125 T: 124 QT: 436 QTc: 548 Interpretive Statements Sinus rhythm with PAC Nonspecific IVCD/ incomplete LBBB Not significantly changed from prior Electronically Signed On 01-22-2021 9:54:28 PDT by Robinson Inman /store/M0/[id number]
--- NOTE | 2021-01-22 12:02 | Internal Med History&Physical ---
HPI History of Present Illness Patient information: Note initiated : 01/22/21 at 11:58 am Service Date, if different from initiated Date: [] Patient: Florencio Grace a 65 y/o M admitted on for SOB, Didn't Take Lasix. Chief Complaint: [] History of present illness: Mr. Grace is a 65 year old M Patient presents to the ED for left lower extremity edema and weakness. States he went on a trip for over week and got to bring his torsemide. Also complains of a productive cough of white sputum but denies shortness of breath. Patient's leg is significantly swollen for ED patient appears to be in anasarca. Patient also fallen several times during the trip and had some redness around the medial thigh. Patient complains of orthopnea and paroxysmal nocturnal dyspnea which has had for the past couple months and per him seems to be stable. Ultrasound showed what appeared to be a fluid collection but CT showed no fluid collection. Also no soft tissue gas bubbles. extensive subcutaneous edema. Patient was hypoxic at 87% in the ED. He was afebrile. No leukocytosis. Creatinine appear to be slightly above baseline. Pulmonary edema on chest x-ray noted. Review of Systems: Pertinent positives as above. Denies headache/fever/chills/nausea/ vomiting/chest or abdominal pain/diarrhea. Remaining 10 point review of system reviewed negative. PFSH PFSH All Active Problems Congestive heart failure (Chronic) SOB (shortness of breath) (Chronic) Diabetes (Chronic) Hypertension (Chronic) Anemia (Chronic) Dermatitis of lower extremity (Chronic) Pedal edema (Chronic) Hypercoagulable state (Chronic) Pleural effusion (Acute) CKD (chronic kidney disease) stage 3, GFR 30-59 ml/min (Chronic) Hyperphosphatemia (Acute) Non compliance with medical treatment (Chronic) Morbid obesity with BMI of 45.0-49.9, adult (Chronic) 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 (Chronic) Weakness (Acute) Pleural effusion due to CHF (congestive heart failure) (Acute) Anemia in chronic kidney disease (CKD) (Acute) Hypoxia (Acute) Hypokalemia (Acute) CHF, acute on chronic (Acute) Community acquired pneumonia (Acute) Heart failure, systolic, with acute decompensation (Acute) CKD stage G3a/A3, GFR 45-59 and albumin creatinine ratio >300 mg/g (Chronic) Volume overload state of heart (Chronic) Chest pain (Acute) CHF (congestive heart failure) (Acute) Pleural effusion (Acute) CKD (chronic kidney disease) (Acute) Diabetes (Acute) Hypocalcemia (Chronic) CKD (chronic kidney disease), stage III (Acute) Vitamin D insufficiency (Acute) Acute on chronic combined systolic (congestive) and diastolic (congestive) heart failure (Acute) Abnormal CXR (chest x-ray) (Acute) CHF (congestive heart failure) (Acute) Hypoxia (Acute) CKD stage G3b/A3, GFR 30-44 and albumin creatinine ratio >300 mg/g (Acute) Acute CHF (congestive heart failure) (Acute) Medical History JERMAN (acute kidney injury) Anemia Ankle fracture Chronic wound of extremity CKD (chronic kidney disease) stage 3, GFR 30-59 ml/min Colon cancer Community acquired pneumonia Congestive heart failure Dermatitis of lower extremity Diabetes Heart failure with acute decompensation, type unknown Hypercoagulable state Hyperphosphatemia Hypertension Localized edema due to fluid overload 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 Warfarin (for hypercoagulable state?) Morbid obesity with BMI of 45.0-49.9, adult Non compliance with medical treatment Osteomyelitis of ankle Pedal edema Pleural effusion s/p thoracentesis 01/2019 Pulmonary edema Pulmonary embolism SOB (shortness of breath) Surgical History History of open reduction and internal fixation (ORIF) procedure Right Arm History of orthopedic surgery Irrigation and debridement 2017 Right Ankle History of partial colectomy History of total replacement of right ankle 11/12/17 Dr Muro Hx of right BKA Family History Mother Bruising Bleeding Clotting disorder Father Prostate cancer Social History leisure activities: other other: swimming alcohol intake frequency: does not drink substance use type: does not use MEDS/ALLERGIES Home Medications and Allergies Home Medications Medication Instructions Recorded Confirmed Type tamsulosin 0.4 mg PO HS 03/08/18 09/13/20 History spironolactone 50 mg tablet 50 mg PO QAM 05/05/19 09/13/20 History bisoprolol fumarate 5 mg PO DAILY 06/15/19 09/13/20 History atorvastatin 10 mg PO QHS 10/24/19 09/13/20 History insulin glargine 100 unit/mL 20 unit SUB-Q HS unit 11/30/19 09/13/20 History subcutaneous solution ferrous sulfate 325 mg (65 mg 325 mg PO BID 02/29/20 09/13/20 History iron) tablet,delayed release sacubitril 24 mg-valsartan 26 mg 1 tab PO BID 09/13/20 09/13/20 History tablet torsemide 10 mg tablet 20 mg PO DAILY tab 09/13/20 09/13/20 History Allergies Allergy/AdvReac Type Severity Reaction Status Date / Time No Known Drug Allergies Allergy Verified 01/22/21 05:53 EXAM Constitutional Vitals: Temp Pulse Resp BP Pulse Ox 97.9 F 64 21 124/65 94 01/22/21 05:54 01/22/21 10:45 01/22/21 10:45 01/22/21 10:45 01/22/21 10:45 Exam: General: Alert, Awake, No acute Distress, morbidly obese Eyes/N/T: EOMI, right eye blind Head/Neck: neck supple, normocephalic atraumatic, JVD CV: RRR, No murmurs, normal s1/s2 Pulm: diminished b/l, no wheezing Abd: soft, nontender, +BS x4 Ext: no clubbing/cyanosis. Right BKA, LLE 3+ edema to abdomen Neuro: Alert, no focal deficits, moves all extremities, CN 2-12 grossly intact, symmetrical strength b/l upper/lower, sensations intact b/l upper/lower Skin: warm/dry DATA Data Completed and Pending Labs: Labs from last 24 hours 01/22/21 01/22/21 01/22/21 10:11 06:12 06:12 WBC RBC Hgb Hct MCV MCH MCHC RDW Plt Count MPV Neut % (Auto) Lymph % (Auto) [place] % (Auto) Eos % (Auto) Baso % (Auto) Lymph # (Auto) [place] # (Auto) Eos # (Auto) Baso # (Auto) Absolute Neutrophils Sodium 143 Potassium 3.9 Chloride 106 Carbon Dioxide 26 Anion Gap 11.0 BUN 23 Creatinine 1.9 H GFR Calculation 36 Glucose 147 H Calcium 7.8 L Troponin T 0.05 H* 0.05 H* NT-Pro-B Natriuret Pep 04556.0 H 01/22/21 06:12 WBC 8.8 RBC 3.72 L Hgb 10.9 L Hct 35.3 L MCV 94.9 MCH 29.3 MCHC 30.9 L RDW 15.7 H Plt Count 182 MPV 9.9 Neut % (Auto) 77.9 Lymph % (Auto) 9.3 L [place] % (Auto) 10.4 Eos % (Auto) 1.9 Baso % (Auto) 0.5 Lymph # (Auto) 0.82 L [place] # (Auto) 0.91 H Eos # (Auto) 0.17 Baso # (Auto) 0.04 Absolute Neutrophils 6.84 Sodium Potassium Chloride Carbon Dioxide Anion Gap BUN Creatinine GFR Calculation Glucose Calcium Troponin T NT-Pro-B Natriuret Pep A/P Narrative A/P Narrative: A: *Acute on chronic systolic(25%)/diastolic(II) CHF w/Pulmonary edema: 2/2 nocompliance with diuretic -Follows with cardiology *Anasarca: *Acute hypoxic respiratory failure: 2/2 abov -1-2L NC *Generalized weakness/deconditioning: *CKD IIIb: Follows with Dr. Wright *Anemia, chronic: *HTN/HLD: *Morbid obesity: *h/o MITCHELL: Was supposed to follow-up with pulmonology several years ago for a sleep study -Says he finally has appointment next month *DM/retinopathy: On Lantus and metformin P: -lasix gtt, aldactone (home torsemide held for now) -monitor uop/weights/i&o's -cont BB/Entresto -IS -Basal insulin & SSI -BRYAN/MAYELA wraps to LLE and elevate -pt/ot -f/u with pulm for sleep study and f/u with cardiology -Reconcile home medications -ppx: lovenox DNR Time Spent With Patient Time: Total time spent is greater than 50% in coordination of care (as documented) at patient's floor/unit and/or counseling patient:
[2021-01-22] MEDS ORDERED: POLYETHYLENE GLYCOL 3350 17 GM PACKET PO PRN (15:56)
[2021-01-22] MEDS ORDERED: IPRATROPIUM/ALBUTEROL 3 ML AMPUL.NEB NEB PRN (15:56)
[2021-01-22] MEDS ORDERED: ACETAMINOPHEN 325 MG TABLET PO PRN (15:56)
[2021-01-22] MEDS ORDERED: MAGNESIUM SULFATE 2 GM/50 ML BAG IV PRN (15:56)
[2021-01-22] MEDS ORDERED: POTASSIUM CHLORIDE 20 MEQ TABLET PO PRN ×2 (15:56)
[2021-01-22] MEDS ORDERED: POTASSIUM CHLORIDE 40 MEQ in DEXTROSE 5% IN WATER 500 ML IV PRN (15:56)
[2021-01-22] MEDS ORDERED: DEXTROSE 50% 50 ML VIAL IV PRN (15:56)
[2021-01-22] MEDS ORDERED: HYDROcodone/APAP 5/325MG TABLET PO PRN (15:56)
[2021-01-22] MEDS ORDERED: METOCLOPRAMIDE 10 MG/2 ML VIAL IV PRN (15:56)
[2021-01-22] MEDS ORDERED: FUROSEMIDE 250 MG in 0.9 % SODIUM CHLORIDE 225 ML IV SCH (15:56)
[2021-01-22] MEDS ORDERED: SENNOSIDES 1 TABLET PO PRN (15:56)
[2021-01-22] MEDS ORDERED: DEXTROSE 31 GM ORAL.SUSP PO PRN (15:56)
[2021-01-22] MEDS ORDERED: ONDANSETRON 4 MG/2 ML VIAL IV PRN (15:56)
[2021-01-22] MEDS: 0.9 % SODIUM CHLORIDE 10 ML SYRINGE IV SCH ×2 (16:41→20:11)
[2021-01-22] MEDS: FUROSEMIDE 250 MG in 0.9 % SODIUM CHLORIDE 225 ML IV SCH (16:41)
[2021-01-22] MEDS: INSULIN LISPRO 1 UNIT/0.01 ML UNIT SQ SCH ×2 (16:42→20:01)
[2021-01-22] MEDS: DOCUSATE SODIUM 100 MG CAPSULE PO SCH (20:01)
[2021-01-22] MEDS: MELATONIN 3 MG TABLET PO SCH (20:02)
[2021-01-22] MEDS: ENOXAPARIN 40 MG/0.4 ML SYRINGE SQ SCH (20:02)
[2021-01-22] MEDS: TAMSULOSIN 0.4 MG CAPSULE PO SCH (20:06)
[2021-01-22] MEDS ORDERED: hydrALAZINE 20 MG/ML VIAL IV PRN (20:13)
[2021-01-22] MEDS: INSULIN GLARGINE, HUMAN 1 UNIT/0.01 ML SQ SCH (20:38)
[2021-01-22] MEDS: ATORVASTATIN 10 MG TABLET PO SCH (20:38)
[2021-01-22] MEDS: Sacubitril-Valsartan [Entresto] 24-26 mg tablet PO SCH (20:39)
[2021-01-23] MEDS ORDERED: FUROSEMIDE 100 MG/10 ML VIAL IV ONE (02:06)
[2021-01-23] MEDS ORDERED: FUROSEMIDE 20 MG/2 ML VIAL IV ONE (02:07)
[2021-01-23] MEDS: FUROSEMIDE 250 MG in 0.9 % SODIUM CHLORIDE 225 ML IV SCH ×4 (02:14→22:53)
[2021-01-23] MEDS: 0.9 % SODIUM CHLORIDE 10 ML SYRINGE IV SCH ×3 (06:05→21:59)
[2021-01-23] MEDS: INSULIN LISPRO 1 UNIT/0.01 ML UNIT SQ SCH ×4 (07:42→21:17)
--- NOTE | 2021-01-23 07:47 | Internal Med Progress Note ---
SUBJECTIVE Subjective Patient information: Note initiated : 01/23/21 at 7:45 am Service Date, if different from initiated Date: [] Patient: Florencio Grace a 65 y/o M admitted on 01/22/21 for SOB, Didn't Take Lasix. Chief Complaint: [] Interval history: History of present illness: Mr. Grace is a 65 year old M Patient presents to the ED for left lower extremity edema and weakness. States he went on a trip for over week and got to bring his torsemide. Also complains of a productive cough of white sputum but denies shortness of breath. Patient's leg is significantly swollen for ED patient appears to be in anasarca. Patient also fallen several times during the trip and had some redness around the medial thigh. Patient complains of orthopnea and paroxysmal nocturnal dyspnea which has had for the past couple months and per him seems to be stable. Ultrasound showed what appeared to be a fluid collection but CT showed no fluid collection. Also no soft tissue gas bubbles. extensive subcutaneous edema. Patient was hypoxic at 87% in the ED. He was afebrile. No leukocytosis. Creatinine appear to be slightly above baseline. Pulmonary edema on chest x-ray noted. 01/23 Patient feeling better with more strength. Feels swelling is improving. Has chronic cough but no change. Review of Systems: denies headache/fever/chills/nausea/vomiting/chest or abdominal pain/diarrhea. Otherwise see above. Constitutional Vitals: Vital Signs Temp Pulse Resp BP Pulse Ox 97.8 F 75 20 129/58 98 01/23/21 04:28 01/23/21 06:01 01/23/21 06:01 01/23/21 06:01 01/23/21 06:01 Period Temp Pulse Resp BP Sys/Bush Pulse Ox Last 24 Hr 96.5 F-97.8 F 58-99 6-38 94-167/52-121 87-99 Intake and Output 01/22/21 01/23/21 01/23/21 21:59 05:59 13:59 Intake Total 185 185 219 Output Total 1030 1110 280 Balance -845 -925 -61 Weight 148.234 kg Intake & Output: Intake & Output 01/22/21 01/23/21 01/23/21 21:59 05:59 13:59 Intake Total 185 185 219 Output Total 1030 1110 280 Balance -845 -925 -61 Weight 148.234 kg Intake: IV 65 185 219 Lasix 250 mg In Sodium Chloride 65 185 219 0.9% 225 ml @ 5 MG/HR 5 mls/hr IV Q24H [facility] Rx#:[id number] Oral 120 Output: Urine Catheter Amount 1030 1110 280 Other: Meal Dinner Percent of Meal Consumed 100% Urine Appearance Clear Clear Urine Color Pale Straw Exam: General: Alert, Awake, No acute Distress, morbidly obese Eyes/N/T: EOMI, right eye blind Head/Neck: neck supple, JVD CV: RRR, No murmurs, Pulm: diminished b/l, no wheezing Abd: soft, nontender, +BS x4 Ext: no clubbing/cyanosis. Right BKA, LLE 3+ edema to abdomen Neuro: Alert, no focal deficits, moves all extremities, Skin: warm/dry OBJ DATA Labs CBC & Chem 7: 01/22/21 06:12 01/23/21 05:55 Labs: Abnormal Lab Results 01/22/21 01/22/21 01/22/21 10:11 06:12 06:12 RBC Hgb Hct MCHC RDW Lymph % (Auto) Lymph # (Auto) [place] # (Auto) Creatinine 1.9 H Glucose 147 H Calcium 7.8 L Troponin T 0.05 H* 0.05 H* NT-Pro-B Natriuret Pep 40090.0 H 01/22/21 06:12 RBC 3.72 L Hgb 10.9 L Hct 35.3 L MCHC 30.9 L RDW 15.7 H Lymph % (Auto) 9.3 L Lymph # (Auto) 0.82 L [place] # (Auto) 0.91 H Creatinine Glucose Calcium Troponin T NT-Pro-B Natriuret Pep Meds: Medications Acetaminophen (Acetaminophen 325 Mg Tablet) 650 mg PO Q6HP PRN; Protocol PRN Reason: Per Pain Protocol/Fever > 101 Hydrocodone Bitart/Acetaminophen (Hydrocodone/Apap 5/325mg Tablet) 1 tab PO Q4HP PRN PRN Reason: PAIN LEVEL 3-6 Albuterol/Ipratropium (Ipratropium/Albuterol 3 Ml Ampul.Neb) 3 ml NEB Q4HP PRN PRN Reason: Shortness Of Breath Atorvastatin Calcium (Atorvastatin 10 Mg Tablet) 10 mg PO QHS [facility] Last Admin: 01/22/21 20:38 Dose: 10 mg Documented by: Bisoprolol Fumarate (Bisoprolol 5 Mg Tablet) 5 mg PO DAILY [facility] Dextrose (Dextrose 50% 50 Ml Vial) 0 ml IV UD PRN PRN Reason: Hypoglycemia Diagnostic Test (Pha) (Accu-Chek 1 Each Strip) 1 each FS [facility] Last Admin: 01/23/21 07:42 Dose: 1 each Documented by: Docusate Sodium (Docusate Sodium 100 Mg Capsule) 100 mg PO BID [facility] Last Admin: 01/22/21 20:01 Dose: Not Given Documented by: Enoxaparin Sodium (Enoxaparin 40 Mg/0.4 Ml Syringe) 40 mg SQ BID [facility] Last Admin: 01/22/21 20:02 Dose: 40 mg Documented by: Glucose (Dextrose 31 Gm Oral.Susp) 15 gm PO PRN PRN PRN Reason: Hypoglycemia Hydralazine HCl (Hydralazine 20 Mg/Ml Vial) 0 mg IV Q2HP PRN PRN Reason: Hypertension Potassium Chloride 40 meq/ (Dextrose) 520 mls @ 130 mls/hr IV UD PRN PRN Reason: Potassium < 3 Magnesium Sulfate (Magnesium Sulfate) 2 gm in 50 mls @ 50 mls/hr IV UD PRN PRN Reason: Magnesium </= 1.6 Furosemide 250 mg/ Sodium (Chloride) 250 mls @ 5 mls/hr IV Q24H [facility]; Protocol Last Titration: 01/23/21 07:42 Dose: 35 mg/hr, 35 mls/hr Documented by: Insulin Glargine (Insulin Glargine, Human 1 Unit/0.01 Ml) 20 unit SQ [facility] Last Admin: 01/22/21 20:38 Dose: 20 units Documented by: Insulin Human Lispro (Insulin Lispro 1 Unit/0.01 Ml Unit) 0 unit SQ [facility]; Protocol Last Admin: 01/23/21 07:42 Dose: Not Given Documented by: Melatonin (Melatonin 3 Mg Tablet) 9 mg PO QHS [facility] Last Admin: 01/22/21 20:02 Dose: 9 mg Documented by: Metoclopramide HCl (Metoclopramide 10 Mg/2 Ml Vial) 10 mg IV Q6HP PRN PRN Reason: Nausea And Vomiting Ondansetron HCl (Ondansetron 4 Mg/2 Ml Vial) 4 mg IV Q4HP PRN PRN Reason: Nausea And Vomiting Sacubitril-Valsartan [Entresto] 24-26 Mg Tablet 1 dose PO [facility] Last Admin: 01/22/21 20:39 Dose: Not Given Documented by: Polyethylene Glycol (Polyethylene Glycol 3350 17 Gm Packet) 17 gm PO DAILYP PRN PRN Reason: Constipation Potassium Chloride (Potassium Chloride 20 Meq Tablet) 40 meq PO UD PRN PRN Reason: Potssium is 3-3.5 Potassium Chloride (Potassium Chloride 20 Meq Tablet) 40 meq PO UD PRN PRN Reason: Potassium < 3 Senna (Sennosides 1 Tablet) 2 tab PO DAILYP PRN PRN Reason: Constipation Sodium Chloride (0.9 % Sodium Chloride 10 Ml Syringe) 10 ml IV Q8 [facility] Last Admin: 01/23/21 06:05 Dose: Not Given Documented by: Spironolactone (Spironolactone 25 Mg Tablet) 25 mg PO DAILY [facility] Tamsulosin HCl (Tamsulosin 0.4 Mg Capsule) 0.4 mg PO [facility] Last Admin: 01/22/21 20:06 Dose: 0.4 mg Documented by: A/P Narrative A/P Narrative: A: *Acute on chronic systolic(25%)/diastolic(II) CHF w/Pulmonary edema: 2/2 nocompliance with diuretic -Follows with cardiology *Anasarca: *Acute hypoxic respiratory failure: 2/2 abov -1-2L NC *Generalized weakness/deconditioning: *CKD IIIb: Follows with Dr. Wright *Anemia, chronic: *HTN/HLD: *Morbid obesity: *h/o MITCHELL: Was supposed to follow-up with pulmonology several years ago for a sleep study -Says he finally has appointment next month *DM/retinopathy: On Lantus and metformin P: -lasix gtt, aldactone (home torsemide held for now) -monitor uop/weights/i&o's -cont BB/Entresto -IS -Basal insulin & SSI -BRYAN/MAYELA wraps to LLE and elevate -pt/ot -f/u with pulm for sleep study and f/u with cardiology -ppx: lovenox DNR Time Spent With Patient Time: Total time spent is greater than 50% in coordination of care (as documented) at patient's floor/unit and/or counseling patient:
[2021-01-23 08:13] LABS: ALT/SGPT 6 U/L (<40); AST/SGOT 11 U/L (<40); Albumin 2.4 gm/dL (3.2-5.2); Albumin/Globulin Ratio 0.8 (1.0-2.3); Alkaline Phosphatase 95 U/L (39-117); Bilirubin,Direct < 0.2 mg/dL (0-0.3); Bilirubin,Total 0.3 mg/dL (0.1-1.0); Blood Urea Nitrogen 22 mg/dL (8-23); Calcium 7.5 mg/dL (8.6-10.4); Carbon Dioxide 27 mmol/L (22-30); Chloride 108 mmol/L (96-108); Globulin 3.2 gm/dL (2.2-3.7); Glomerular Filtration Rate 38; Glucose 103 mg/dL (70-105); Lactate Dehydrogenase 180 U/L (135-225); Phosphorous 4.8 mg/dL (2.5-4.5); Triglycerides 54 mg/dL (<150); Uric Acid 8.6 mg/dL (2.5-8.0)
[2021-01-23] MEDS: DOCUSATE SODIUM 100 MG CAPSULE PO SCH ×3 (08:15→21:17)
[2021-01-23] MEDS: BISOPROLOL 5 MG TABLET PO SCH (08:15)
[2021-01-23] MEDS: ENOXAPARIN 40 MG/0.4 ML SYRINGE SQ SCH ×2 (08:15→21:16)
[2021-01-23] MEDS ORDERED: HYDROCHLOROTHIAZIDE 25 MG TABLET PO ONE (08:37)
[2021-01-23] MEDS ORDERED: ALBUMIN HUMAN 12.5 GM/50 ML BAG IV ONE (08:37)
[2021-01-23] MEDS ORDERED: SPIRONOLACTONE 25 MG TABLET PO SCH (09:00)
[2021-01-23] MEDS: TAMSULOSIN 0.4 MG CAPSULE PO SCH (21:16)
[2021-01-23] MEDS: ATORVASTATIN 10 MG TABLET PO SCH (21:16)
[2021-01-23] MEDS: INSULIN GLARGINE, HUMAN 1 UNIT/0.01 ML SQ SCH (21:16)
[2021-01-23] MEDS: MELATONIN 3 MG TABLET PO SCH (21:16)
[2021-01-23] MEDS: Sacubitril-Valsartan [Entresto] 24-26 mg tablet PO SCH (21:59)
[2021-01-24] MEDS ORDERED: FUROSEMIDE 100 MG/10 ML VIAL IV ONE (05:04)
[2021-01-24] MEDS: FUROSEMIDE 250 MG in 0.9 % SODIUM CHLORIDE 225 ML IV SCH ×3 (05:04→19:41)
[2021-01-24] MEDS: 0.9 % SODIUM CHLORIDE 10 ML SYRINGE IV SCH ×3 (05:09→20:02)
[2021-01-24] MEDS: INSULIN LISPRO 1 UNIT/0.01 ML UNIT SQ SCH ×4 (07:31→20:19)
[2021-01-24] MEDS: ENOXAPARIN 40 MG/0.4 ML SYRINGE SQ SCH ×2 (09:15→11:28)
[2021-01-24] MEDS: DOCUSATE SODIUM 100 MG CAPSULE PO SCH ×2 (09:15→20:08)
[2021-01-24] MEDS: SPIRONOLACTONE 25 MG TABLET PO SCH (09:15)
[2021-01-24] MEDS: BISOPROLOL 5 MG TABLET PO SCH (09:15)
--- NOTE | 2021-01-24 09:16 | Internal Med Progress Note ---
SUBJECTIVE Subjective Patient information: Note initiated : 01/24/21 at 9:02 am Service Date, if different from initiated Date: [] Patient: Florencio Grace a 65 y/o M admitted on 01/22/21 for SOB, Didn't Take Lasix. Chief Complaint: [CHF exacerbation] Interval history: History of present illness: Mr. Grace is a 65 year old M Patient presents to the ED for left lower extremity edema and weakness. States he went on a trip for over week and got to bring his torsemide. Also complains of a productive cough of white sputum but denies shortness of breath. Patient's leg is significantly swollen for ED patient appears to be in anasarca. Patient also fallen several times during the trip and had some redness around the medial thigh. Patient complains of orthopnea and paroxysmal nocturnal dyspnea which has had for the past couple months and per him seems to be stable. Ultrasound showed what appeared to be a fluid collection but CT showed no fluid collection. Also no soft tissue gas bubbles. extensive subcutaneous edema. Patient was hypoxic at 87% in the ED. He was afebrile. No leukocytosis. Creatinine appear to be slightly above baseline. Pulmonary edema on chest x-ray noted. 01/23 Patient feeling better with more strength. Feels swelling is improving. Has chronic cough but no change. 01/24: Still on Lasix drip. Been on 2L/min oxygen. Fluid balance: ~-2100cc over the past 24 hours. Denies SOB. Denies cough or wheezing. Denies chest pain. c/o left leg swelling. Constitutional Vitals: Vital Signs Temp Pulse Resp BP Pulse Ox 36.2 C 65 32 H 123/78 99 01/24/21 03:10 01/24/21 06:00 01/24/21 06:00 01/24/21 06:00 01/24/21 06:00 Period Temp Pulse Resp BP Sys/Bush Pulse Ox Last 24 Hr 36.2 C-36.7 C 58-69 22-36 123-153/55-98 93-99 Intake and Output 01/23/21 01/24/21 01/24/21 21:59 05:59 13:59 Intake Total 250 897 Output Total 780 808 255 Balance -530 89 -255 Weight 147.599 kg Intake & Output: Intake & Output 01/23/21 01/24/21 01/24/21 21:59 05:59 13:59 Intake Total 250 897 Output Total 780 808 255 Balance -530 89 -255 Weight 147.599 kg Intake: IV 250 497 Lasix 250 mg In Sodium Chloride 250 497 0.9% 225 ml @ 5 MG/HR 5 mls/hr IV Q8H [facility] Rx#:[id number] Oral 400 Output: Urine Catheter Amount 780 808 255 Other: Meal Dinner Percent of Meal Consumed 75% Feeding Ability Independent Urine Appearance Clear Clear Clear Mucous Threads Urine Color Pale Bright Yellow Bright Yellow General appearance: cooperative and no acute distress Head Head exam: Present atraumatic and normocephalic Eye Eye exam: Present EOMI and PERRL ENT ENT exam: Present mucous membranes moist, normal exam and normal external ear exam Additional comments: Nasal cannula in place Neck Neck exam: Present normal inspection; Absent lymphadenopathy, tenderness and thyromegaly Respiratory Respiratory exam: Present rhonchi; Absent accessory muscle use, respiratory distress and wheezes Cardiovascular Cardiovascular exam: Present normal rate and rhythm; Absent JVD GI/Abdominal GI/Abdominal exam: Present normal bowel sounds and soft; Absent organomegaly and tenderness Rectal Rectal exam: Present deferred Extremities Exam Extremities exam: Present full ROM, normal capillary refill and pedal edema; Absent normal inspection and tenderness Additional comments: Right leg surgically amputated. Neurological Exam Neurological exam: Present alert, CN II-XII intact and oriented X3; Absent motor sensory deficit Psychiatric Psychiatric exam: Present normal affect and normal mood; Absent anxious and depressed Skin Skin exam: Present dry and intact OBJ DATA Labs CBC & Chem 7: 01/22/21 06:12 01/23/21 05:55 Labs: Abnormal Lab Results 01/23/21 01/22/21 01/22/21 05:55 10:11 06:12 RBC Hgb Hct MCHC RDW Lymph % (Auto) Lymph # (Auto) [place] # (Auto) Creatinine 1.8 H Glucose Uric Acid 8.6 H Calcium 7.5 L Phosphorus 4.8 H Troponin T 0.05 H* 0.05 H* NT-Pro-B Natriuret Pep Total Protein 5.6 L Albumin 2.4 L Albumin/Globulin Ratio 0.8 L 01/22/21 01/22/21 06:12 06:12 RBC 3.72 L Hgb 10.9 L Hct 35.3 L MCHC 30.9 L RDW 15.7 H Lymph % (Auto) 9.3 L Lymph # (Auto) 0.82 L [place] # (Auto) 0.91 H Creatinine 1.9 H Glucose 147 H Uric Acid Calcium 7.8 L Phosphorus Troponin T NT-Pro-B Natriuret Pep 98734.0 H Total Protein Albumin Albumin/Globulin Ratio Meds: Medications Acetaminophen (Acetaminophen 325 Mg Tablet) 650 mg PO Q6HP PRN; Protocol PRN Reason: Per Pain Protocol/Fever > 101 Hydrocodone Bitart/Acetaminophen (Hydrocodone/Apap 5/325mg Tablet) 1 tab PO Q4HP PRN PRN Reason: PAIN LEVEL 3-6 Albuterol/Ipratropium (Ipratropium/Albuterol 3 Ml Ampul.Neb) 3 ml NEB Q4HP PRN PRN Reason: Shortness Of Breath Atorvastatin Calcium (Atorvastatin 10 Mg Tablet) 10 mg PO QHS [facility] Last Admin: 01/23/21 21:16 Dose: 10 mg Documented by: Bisoprolol Fumarate (Bisoprolol 5 Mg Tablet) 5 mg PO DAILY [facility] Last Admin: 01/23/21 08:15 Dose: 5 mg Documented by: Dextrose (Dextrose 50% 50 Ml Vial) 0 ml IV UD PRN PRN Reason: Hypoglycemia Diagnostic Test (Pha) (Accu-Chek 1 Each Strip) 1 each FS ACHS [facility] Last Admin: 01/24/21 07:31 Dose: 1 each Documented by: Docusate Sodium (Docusate Sodium 100 Mg Capsule) 100 mg PO BID [facility] Last Admin: 01/23/21 21:17 Dose: Not Given Documented by: Enoxaparin Sodium (Enoxaparin 40 Mg/0.4 Ml Syringe) 40 mg SQ BID [facility] Last Admin: 01/23/21 21:16 Dose: 40 mg Documented by: Glucose (Dextrose 31 Gm Oral.Susp) 15 gm PO PRN PRN PRN Reason: Hypoglycemia Hydralazine HCl (Hydralazine 20 Mg/Ml Vial) 0 mg IV Q2HP PRN PRN Reason: Hypertension Potassium Chloride 40 meq/ (Dextrose) 520 mls @ 130 mls/hr IV UD PRN PRN Reason: Potassium < 3 Magnesium Sulfate (Magnesium Sulfate) 2 gm in 50 mls @ 50 mls/hr IV UD PRN PRN Reason: Magnesium </= 1.6 Furosemide 250 mg/ Sodium (Chloride) 250 mls @ 5 mls/hr IV Q8H [facility]; Protocol Last Admin: 01/24/21 05:04 Dose: 40 mg/hr, 40 mls/hr Documented by: Insulin Glargine (Insulin Glargine, Human 1 Unit/0.01 Ml) 20 unit SQ [facility] Last Admin: 01/23/21 21:16 Dose: 20 units Documented by: Insulin Human Lispro (Insulin Lispro 1 Unit/0.01 Ml Unit) 0 unit SQ [facility]; Protocol Last Admin: 01/24/21 07:31 Dose: Not Given Documented by: Melatonin (Melatonin 3 Mg Tablet) 9 mg PO QHS [facility] Last Admin: 01/23/21 21:16 Dose: 9 mg Documented by: Metoclopramide HCl (Metoclopramide 10 Mg/2 Ml Vial) 10 mg IV Q6HP PRN PRN Reason: Nausea And Vomiting Ondansetron HCl (Ondansetron 4 Mg/2 Ml Vial) 4 mg IV Q4HP PRN PRN Reason: Nausea And Vomiting Sacubitril-Valsartan [Entresto] 24-26 Mg Tablet 1 dose PO [facility] Last Admin: 01/23/21 21:59 Dose: Not Given Documented by: Polyethylene Glycol (Polyethylene Glycol 3350 17 Gm Packet) 17 gm PO DAILYP PRN PRN Reason: Constipation Potassium Chloride (Potassium Chloride 20 Meq Tablet) 40 meq PO UD PRN PRN Reason: Potssium is 3-3.5 Potassium Chloride (Potassium Chloride 20 Meq Tablet) 40 meq PO UD PRN PRN Reason: Potassium < 3 Senna (Sennosides 1 Tablet) 2 tab PO DAILYP PRN PRN Reason: Constipation Sodium Chloride (0.9 % Sodium Chloride 10 Ml Syringe) 10 ml IV Q8 [facility] Last Admin: 01/24/21 05:09 Dose: Not Given Documented by: Spironolactone (Spironolactone 25 Mg Tablet) 50 mg PO DAILY [facility] Tamsulosin HCl (Tamsulosin 0.4 Mg Capsule) 0.4 mg PO [facility] Last Admin: 01/23/21 21:16 Dose: 0.4 mg Documented by: A/P Assessment and plan (1) CKD (chronic kidney disease), stage III: Status: Acute (2) Acute on chronic combined systolic (congestive) and diastolic (congestive) heart failure: Status: Acute Comment: Beta-medhat, Dual RAASI therapy and torsemide adjusted for weight of around 280 (3) Acute kidney injury: Status: Acute (4) Anemia in chronic kidney disease (CKD): Status: Acute Qualifiers: Chronic kidney disease stage: stage 3 (moderate) Qualified Code(s): N18.3 - Chronic kidney disease, stage 3 (moderate); D63.1 - Anemia in chronic kidney disease (5) Hypertension: Status: Chronic (6) Diabetes: Status: Chronic (7) Mixed dyslipidemia: Status: Acute (8) Morbid obesity with BMI of 45.0-49.9, adult: Status: Chronic Narrative A/P Narrative: Assessment and Plans: 1. Acute on chronic combined CHF with exacerbation, LVEF 25%, grade II diastolic failure: Stays in inpatient PCU with telemetry Intake and output Daily weigh 2L/day fluid restriction Lasix drip Bisoprolol Entresto Aldactone Supplemental oxygen therapy titrate to achieve spo2>=92% Physical therapy 2. T2DM: HgA1c Hold oral hypoglycemics Insulin therapy Accu Chek AC HS Hypoglycemia protocol Diabetic diet 3. HTN: Currently normotensive Continue Lasix drip Bisoprolol Entresto Aldactone 4. Mixed dyslipidemia: Continue statin therapy 5. 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 Suspected MITCHELL: Outpatient sleep study evaluation for candidacy for CPAP machine GI ppx: not currently indicated DVT ppx: Heparin Code status: DNI DNR Prognosis: guarded Disposition: inpatient PCU telemetry; PT evaluation for placement Time Spent With Patient Time: Total time spent is greater than 50% in coordination of care (as documented) at patient's floor/unit and/or counseling patient: Total time spent with greater than 50% in coordination of care (as documented) at patient's floor/unit and/or counseling patient:: Greater than 35 minutes
[2021-01-24 09:42] LABS: Basophils # (Auto) 0.04 K/mcL (0.00-0.30); Basophils % (Auto) 0.5 % (0.0-2.0); Eosinophils % (Auto) 1.2 % (0.0-7.0); Hematocrit 35.8 % (40.1-51.0); Hemoglobin 10.5 g/dL (13.7-17.5); Lymphocytes # (Auto) 0.63 K/mcL (1.50-4.80); Lymphocytes % (Auto) 7.2 % (15.5-49.0); Mean Cell Volume 96.5 fL (80.0-100.0); Mean Corpuscular HGB Conc 29.3 g/dL (31.0-36.0); Mean Platelet Volume 10.6 fL (7.4-10.4); Monocytes # (Auto) 0.91 K/mcL (0.10-0.90); Monocytes % (Auto) 10.5 % (1.0-12.0); Neutrophils % (Auto) 80.6 % (38.0-78.0); Platelet Count 132 K/mcL (140-440); RBC 3.71 M/mcL (4.63-6.08); Red Cell Distribution Width 15.7 % (11.5-14.5); WBC 8.7 K/mcL (4.5-11.0)
[2021-01-24 09:58] LABS: ALT/SGPT 7 U/L (<40); AST/SGOT 11 U/L (<40); Albumin 2.7 gm/dL (3.2-5.2); Alkaline Phosphatase 96 U/L (39-117); Bilirubin,Total 0.3 mg/dL (0.1-1.0); Blood Urea Nitrogen 25 mg/dL (8-23); Calcium 7.5 mg/dL (8.6-10.4); Carbon Dioxide 28 mmol/L (22-30); Chloride 105 mmol/L (96-108); Globulin 2.8 gm/dL (2.2-3.7); Glomerular Filtration Rate 33; Glucose 94 mg/dL (70-105)
[2021-01-24] MEDS ORDERED: HEPARIN 5,000 UNIT/ML VIAL SQ ONE (10:15)
[2021-01-24] MEDS: TAMSULOSIN 0.4 MG CAPSULE PO SCH (20:15)
[2021-01-24] MEDS: MELATONIN 3 MG TABLET PO SCH (20:15)
[2021-01-24] MEDS: INSULIN GLARGINE, HUMAN 1 UNIT/0.01 ML SQ SCH (20:18)
[2021-01-24] MEDS: ATORVASTATIN 10 MG TABLET PO SCH (20:18)
[2021-01-24] MEDS: Sacubitril-Valsartan [Entresto] 24-26 mg tablet PO SCH (20:19)
[2021-01-24] MEDS: HEPARIN 5,000 UNIT/ML VIAL SQ SCH (20:19)
[2021-01-25] MEDS: FUROSEMIDE 250 MG in 0.9 % SODIUM CHLORIDE 225 ML IV SCH ×2 (05:00→11:25)
[2021-01-25] MEDS: 0.9 % SODIUM CHLORIDE 10 ML SYRINGE IV SCH ×3 (05:29→20:36)
[2021-01-25 07:49] LABS: Basophils # (Auto) 0.04 K/mcL (0.00-0.30); Basophils % (Auto) 0.4 % (0.0-2.0); Eosinophils # (Auto) 0.15 K/mcL (0.00-0.70); Eosinophils % (Auto) 1.6 % (0.0-7.0); Hematocrit 33.4 % (40.1-51.0); Lymphocytes # (Auto) 0.81 K/mcL (1.50-4.80); Lymphocytes % (Auto) 8.4 % (15.5-49.0); Mean Cell Volume 98.2 fL (80.0-100.0); Mean Corpuscular HGB Conc 29.9 g/dL (31.0-36.0); Mean Platelet Volume 10.2 fL (7.4-10.4); Monocytes # (Auto) 0.92 K/mcL (0.10-0.90); Monocytes % (Auto) 9.5 % (1.0-12.0); Neutrophils % (Auto) 80.1 % (38.0-78.0); Platelet Count 151 K/mcL (140-440); Red Cell Distribution Width 15.9 % (11.5-14.5); WBC 9.7 K/mcL (4.5-11.0)
[2021-01-25 08:57] LABS: ALT/SGPT 7 U/L (<40); AST/SGOT 11 U/L (<40); Albumin 2.4 gm/dL (3.2-5.2); Albumin/Globulin Ratio 0.7 (1.0-2.3); Alkaline Phosphatase 98 U/L (39-117); Bilirubin,Total 0.3 mg/dL (0.1-1.0); Blood Urea Nitrogen 30 mg/dL (8-23); Carbon Dioxide 28 mmol/L (22-30); Chloride 103 mmol/L (96-108); Globulin 3.5 gm/dL (2.2-3.7); Glomerular Filtration Rate 30; Glucose 93 mg/dL (70-105)
[2021-01-25] MEDS: INSULIN LISPRO 1 UNIT/0.01 ML UNIT SQ SCH ×4 (09:52→19:41)
[2021-01-25] MEDS: HEPARIN 5,000 UNIT/ML VIAL SQ SCH ×2 (10:15→19:31)
[2021-01-25] MEDS: SPIRONOLACTONE 25 MG TABLET PO SCH (10:15)
[2021-01-25] MEDS: DOCUSATE SODIUM 100 MG CAPSULE PO SCH ×2 (10:15→19:31)
[2021-01-25] MEDS: BISOPROLOL 5 MG TABLET PO SCH (10:15)
--- NOTE | 2021-01-25 11:01 | Internal Med Progress Note ---
SUBJECTIVE Subjective Patient information: Note initiated : 01/25/21 at 10:56 am Service Date, if different from initiated Date: [] Patient: Florencio Grace a 65 y/o M admitted on 01/22/21 for SOB, Didn't Take Lasix. Chief Complaint: [CHF exacerbation] Interval history: History of present illness: Mr. Grace is a 65 year old M Patient presents to the ED for left lower extremity edema and weakness. States he went on a trip for over week and got to bring his torsemide. Also complains of a productive cough of white sputum but denies shortness of breath. Patient's leg is significantly swollen for ED patient appears to be in anasarca. Patient also fallen several times during the trip and had some redness around the medial thigh. Patient complains of orthopnea and paroxysmal nocturnal dyspnea which has had for the past couple months and per him seems to be stable. Ultrasound showed what appeared to be a fluid collection but CT showed no fluid collection. Also no soft tissue gas bubbles. extensive subcutaneous edema. Patient was hypoxic at 87% in the ED. He was afebrile. No leukocytosis. Creatinine appear to be slightly above baseline. Pulmonary edema on chest x-ray noted. 01/23 Patient feeling better with more strength. Feels swelling is improving. Has chronic cough but no change. 01/24: Still on Lasix drip. Been on 2L/min oxygen. Fluid balance: ~-2100cc over the past 24 hours. Denies SOB. Denies cough or wheezing. Denies chest pain. c/o left leg swelling. 01/25: Still on Lasix drip. Been on 2L/min oxygen. Denies SOB. Denies cough or wheezing. Denies chest pain. c/o left leg swelling. Constitutional Vitals: Vital Signs Temp Pulse Resp BP Pulse Ox 36.3 C 57 L 19 150/69 99 01/25/21 07:12 01/25/21 10:01 01/25/21 10:01 01/25/21 10:01 01/25/21 10:01 Period Temp Pulse Resp BP Sys/Bsuh Pulse Ox Last 24 Hr 36.2 C-36.4 C 57-73 19-43 115-167/59-83 90-100 Intake and Output 10/07/21 10/08/21 10/08/21 21:59 05:59 13:59 Intake Total 250 370 Output Total 875 745 395 Balance -625 -375 -395 Weight 148.098 kg Intake & Output: Intake & Output 01/24/21 01/25/21 01/25/21 21:59 05:59 13:59 Intake Total 250 370 Output Total 875 745 395 Balance -625 -375 -395 Weight 148.098 kg Intake: IV 250 250 Lasix 250 mg In Sodium Chloride 250 250 0.9% 225 ml @ 5 MG/HR 5 mls/hr IV Q8H [facility] Rx#:[id number] Oral 120 Output: Urine Catheter Amount 875 745 220 Void Amount 175 Other: Meal Breakfast Percent of Meal Consumed 75% Feeding Ability Independent Urine Appearance Clear Clear Clear Mucous Threads Uretheral (Mayo) Clear Clear Mucous Threads Urine Color Bright Yellow Bright Yellow Pale Uretheral (Mayo) Bright Yellow Bright Yellow Stool Size Large Moderate Stool Color Brown Brown Stool Consistency Formed Formed # Bowel Movements 1 1 # of times incontinent of 0 Bowels General appearance: cooperative and no acute distress Head Head exam: Present atraumatic and normocephalic Eye Eye exam: Present EOMI and PERRL ENT ENT exam: Present mucous membranes moist, normal exam and normal external ear exam Additional comments: Nasal cannula Neck Neck exam: Present normal inspection; Absent lymphadenopathy, tenderness and thyromegaly Respiratory Respiratory exam: Present rhonchi; Absent accessory muscle use, respiratory distress and wheezes Cardiovascular Cardiovascular exam: Present normal rate and rhythm; Absent JVD GI/Abdominal GI/Abdominal exam: Present normal bowel sounds and soft; Absent organomegaly and tenderness Rectal Rectal exam: Present deferred Extremities Exam Extremities exam: Present full ROM, normal capillary refill, normal inspection and pedal edema; Absent tenderness Neurological Exam Neurological exam: Present alert, CN II-XII intact and oriented X3; Absent motor sensory deficit Psychiatric Psychiatric exam: Present normal affect and normal mood; Absent anxious and depressed Skin Skin exam: Present dry, erythema, intact, rash and warm OBJ DATA Labs CBC & Chem 7: 01/25/21 05:53 01/25/21 05:53 Labs: Abnormal Lab Results 01/25/21 01/25/21 01/24/21 05:53 05:53 05:41 RBC 3.40 L Hgb 10.0 L Hct 33.4 L MCHC 29.9 L RDW 15.9 H Plt Count MPV Neut % (Auto) 80.1 H Lymph % (Auto) 8.4 L Lymph # (Auto) 0.81 L [place] # (Auto) 0.92 H BUN 30 H 25 H Creatinine 2.2 H 2.0 H Uric Acid Calcium 8.0 L 7.5 L Phosphorus Troponin T Total Protein 5.5 L Albumin 2.4 L 2.7 L Albumin/Globulin Ratio 0.7 L 01/24/21 01/23/21 01/22/21 05:41 05:55 10:11 RBC 3.71 L Hgb 10.5 L Hct 35.8 L MCHC 29.3 L RDW 15.7 H Plt Count 132 L MPV 10.6 H Neut % (Auto) 80.6 H Lymph % (Auto) 7.2 L Lymph # (Auto) 0.63 L [place] # (Auto) 0.91 H BUN Creatinine 1.8 H Uric Acid 8.6 H Calcium 7.5 L Phosphorus 4.8 H Troponin T 0.05 H* Total Protein 5.6 L Albumin 2.4 L Albumin/Globulin Ratio 0.8 L Meds: Medications Acetaminophen (Acetaminophen 325 Mg Tablet) 650 mg PO Q6HP PRN; Protocol PRN Reason: Per Pain Protocol/Fever > 101 Hydrocodone Bitart/Acetaminophen (Hydrocodone/Apap 5/325mg Tablet) 1 tab PO Q4HP PRN PRN Reason: PAIN LEVEL 3-6 Albuterol/Ipratropium (Ipratropium/Albuterol 3 Ml Ampul.Neb) 3 ml NEB Q4HP PRN PRN Reason: Shortness Of Breath Atorvastatin Calcium (Atorvastatin 10 Mg Tablet) 10 mg PO QHS [facility] Last Admin: 01/24/21 20:18 Dose: 10 mg Documented by: Bisoprolol Fumarate (Bisoprolol 5 Mg Tablet) 5 mg PO DAILY [facility] Last Admin: 01/25/21 10:15 Dose: 5 mg Documented by: Dextrose (Dextrose 50% 50 Ml Vial) 0 ml IV UD PRN PRN Reason: Hypoglycemia Diagnostic Test (Pha) (Accu-Chek 1 Each Strip) 1 each FS ACHS [facility] Last Admin: 01/25/21 08:00 Dose: 1 each Documented by: Docusate Sodium (Docusate Sodium 100 Mg Capsule) 100 mg PO BID [facility] Last Admin: 01/25/21 10:15 Dose: Not Given Documented by: Furosemide (Furosemide 40 Mg/4 Ml Vial) 40 mg IV BIDD [facility] Glucose (Dextrose 31 Gm Oral.Susp) 15 gm PO PRN PRN PRN Reason: Hypoglycemia Heparin Sodium (Porcine) (Heparin 5,000 Unit/Ml Vial) 5,000 unit SQ Q12 [facility] Last Admin: 01/25/21 10:15 Dose: 5,000 unit Documented by: Hydralazine HCl (Hydralazine 20 Mg/Ml Vial) 0 mg IV Q2HP PRN PRN Reason: Hypertension Potassium Chloride 40 meq/ (Dextrose) 520 mls @ 130 mls/hr IV UD PRN PRN Reason: Potassium < 3 Magnesium Sulfate (Magnesium Sulfate) 2 gm in 50 mls @ 50 mls/hr IV UD PRN PRN Reason: Magnesium </= 1.6 Insulin Glargine (Insulin Glargine, Human 1 Unit/0.01 Ml) 20 unit SQ [facility] Last Admin: 01/24/21 20:18 Dose: 20 units Documented by: Insulin Human Lispro (Insulin Lispro 1 Unit/0.01 Ml Unit) 0 unit SQ [facility]; Protocol Last Admin: 01/25/21 09:52 Dose: Not Given Documented by: Melatonin (Melatonin 3 Mg Tablet) 9 mg PO QHS [facility] Last Admin: 01/24/21 20:15 Dose: 9 mg Documented by: Metoclopramide HCl (Metoclopramide 10 Mg/2 Ml Vial) 10 mg IV Q6HP PRN PRN Reason: Nausea And Vomiting Neomycin/Polymyxin/Bacitracin (Neomy Sulf/Bacitra/Polymyxin B Oint.Pack) 1 dose TOPICAL BID [facility] Ondansetron HCl (Ondansetron 4 Mg/2 Ml Vial) 4 mg IV Q4HP PRN PRN Reason: Nausea And Vomiting Sacubitril-Valsartan [Entresto] 24-26 Mg Tablet 1 dose PO HS [facility] Last Admin: 01/24/21 20:19 Dose: Not Given Documented by: Polyethylene Glycol (Polyethylene Glycol 3350 17 Gm Packet) 17 gm PO DAILYP PRN PRN Reason: Constipation Potassium Chloride (Potassium Chloride 20 Meq Tablet) 40 meq PO UD PRN PRN Reason: Potssium is 3-3.5 Potassium Chloride (Potassium Chloride 20 Meq Tablet) 40 meq PO UD PRN PRN Reason: Potassium < 3 Senna (Sennosides 1 Tablet) 2 tab PO DAILYP PRN PRN Reason: Constipation Sodium Chloride (0.9 % Sodium Chloride 10 Ml Syringe) 10 ml IV Q8 [facility] Last Admin: 01/25/21 05:29 Dose: Not Given Documented by: Spironolactone (Spironolactone 25 Mg Tablet) 50 mg PO DAILY [facility] Last Admin: 01/25/21 10:15 Dose: 50 mg Documented by: Tamsulosin HCl (Tamsulosin 0.4 Mg Capsule) 0.4 mg PO [facility] Last Admin: 01/24/21 20:15 Dose: 0.4 mg Documented by: A/P Assessment and plan (1) CKD (chronic kidney disease), stage III: Status: Acute (2) Acute on chronic combined systolic (congestive) and diastolic (congestive) heart failure: Status: Acute Comment: Beta-medhat, Dual RAASI therapy and torsemide adjusted for weight of around 280 (3) Acute kidney injury: Status: Acute (4) Anemia in chronic kidney disease (CKD): Status: Acute Qualifiers: Chronic kidney disease stage: stage 3 (moderate) Qualified Code(s): N18.3 - Chronic kidney disease, stage 3 (moderate); D63.1 - Anemia in chronic kidney disease (5) Hypertension: Status: Chronic (6) Diabetes: Status: Chronic (7) Mixed dyslipidemia: Status: Acute (8) Morbid obesity with BMI of 45.0-49.9, adult: Status: Chronic Narrative A/P Narrative: Assessment and Plans: 1. Acute on chronic combined CHF with exacerbation, LVEF 25%, grade II diastolic failure: Transfer to inpatient med surg with telemetry Intake and output Daily weigh 2L/day fluid restriction d/c Lasix drip, switch to Lasix 40mg IV BID Bisoprolol Entresto Aldactone Supplemental oxygen therapy titrate to achieve spo2>=92% Physical therapy 2. T2DM: HgA1c Hold oral hypoglycemics Insulin therapy Accu Chek [facility] Hypoglycemia protocol Diabetic diet 3. HTN: Currently normotensive d/c Lasix drip, switch to Lasix 40mg IV BID Bisoprolol Entresto Aldactone 4. Mixed dyslipidemia: Continue statin therapy 5. 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 Suspected MITCHELL: Outpatient sleep study evaluation for candidacy for CPAP machine GI ppx: not currently indicated DVT ppx: Heparin Code status: DNI DNR Prognosis: Stable Disposition: Transfer to inpatient med surg with telemetry Time Spent With Patient Time: Total time spent is greater than 50% in coordination of care (as document ed) at patient's floor/unit and/or counseling patient:
[2021-01-25] MEDS ORDERED: METOCLOPRAMIDE 10 MG/2 ML VIAL IV PRN (11:31)
[2021-01-25] MEDS ORDERED: HYDROcodone/APAP 5/325MG TABLET PO PRN (11:31)
[2021-01-25] MEDS ORDERED: POTASSIUM CHLORIDE 40 MEQ in DEXTROSE 5% IN WATER 500 ML IV PRN (11:31)
[2021-01-25] MEDS ORDERED: MAGNESIUM SULFATE 2 GM/50 ML BAG IV PRN (11:31)
[2021-01-25] MEDS ORDERED: DEXTROSE 31 GM ORAL.SUSP PO PRN (11:31)
[2021-01-25] MEDS ORDERED: hydrALAZINE 20 MG/ML VIAL IV PRN (11:31)
[2021-01-25] MEDS ORDERED: IPRATROPIUM/ALBUTEROL 3 ML AMPUL.NEB NEB PRN (11:31)
[2021-01-25] MEDS ORDERED: POLYETHYLENE GLYCOL 3350 17 GM PACKET PO PRN (11:31)
[2021-01-25] MEDS ORDERED: SENNOSIDES 1 TABLET PO PRN (11:31)
[2021-01-25] MEDS ORDERED: DEXTROSE 50% 50 ML VIAL IV PRN (11:31)
[2021-01-25] MEDS ORDERED: ACETAMINOPHEN 325 MG TABLET PO PRN (11:31)
[2021-01-25] MEDS ORDERED: POTASSIUM CHLORIDE 20 MEQ TABLET PO PRN ×2 (11:31)
[2021-01-25] MEDS ORDERED: ONDANSETRON 4 MG/2 ML VIAL IV PRN (11:31)
[2021-01-25] MEDS ORDERED: FUROSEMIDE 40 MG/4 ML VIAL IV SCH (16:00)
[2021-01-25] MEDS: FUROSEMIDE 40 MG/4 ML VIAL IV SCH (16:17)
[2021-01-25] MEDS: NEOMY SULF/BACITRA/POLYMYXIN B OINT.PACK TOPICAL SCH (19:33)
[2021-01-25] MEDS ORDERED: NEOMY SULF/BACITRA/POLYMYXIN B OINT.PACK TOPICAL SCH (21:00)
[2021-01-25] MEDS ORDERED: Sacubitril-Valsartan [Entresto] 24-26 mg tablet PO SCH (21:00)
[2021-01-25] MEDS ORDERED: MELATONIN 3 MG TABLET PO SCH (21:00)
[2021-01-25] MEDS ORDERED: TAMSULOSIN 0.4 MG CAPSULE PO SCH (21:00)
[2021-01-25] MEDS ORDERED: INSULIN GLARGINE, HUMAN 1 UNIT/0.01 ML SQ SCH (21:00)
[2021-01-25] MEDS ORDERED: ATORVASTATIN 10 MG TABLET PO SCH (21:00)
[2021-01-26] MEDS: 0.9 % SODIUM CHLORIDE 10 ML SYRINGE IV SCH (04:25)
[2021-01-26 08:04] LABS: Basophils # (Auto) 0.05 K/mcL (0.00-0.30); Basophils % (Auto) 0.5 % (0.0-2.0); Eosinophils # (Auto) 0.09 K/mcL (0.00-0.70); Eosinophils % (Auto) 0.9 % (0.0-7.0); Hematocrit 31.9 % (40.1-51.0); Hemoglobin 9.3 g/dL (13.7-17.5); Lymphocytes # (Auto) 0.73 K/mcL (1.50-4.80); Lymphocytes % (Auto) 7.4 % (15.5-49.0); Mean Cell Volume 96.1 fL (80.0-100.0); Mean Corpuscular HGB Conc 29.2 g/dL (31.0-36.0); Mean Platelet Volume 10.3 fL (7.4-10.4); Monocytes # (Auto) 1.02 K/mcL (0.10-0.90); Monocytes % (Auto) 10.3 % (1.0-12.0); Neutrophils % (Auto) 80.9 % (38.0-78.0); Platelet Count 156 K/mcL (140-440); RBC 3.32 M/mcL (4.63-6.08); Red Cell Distribution Width 15.6 % (11.5-14.5); WBC 9.9 K/mcL (4.5-11.0)
[2021-01-26 08:22] LABS: ALT/SGPT 7 U/L (<40); AST/SGOT 11 U/L (<40); Albumin 2.5 gm/dL (3.2-5.2); Albumin/Globulin Ratio 0.8 (1.0-2.3); Alkaline Phosphatase 98 U/L (39-117); Bilirubin,Total 0.2 mg/dL (0.1-1.0); Blood Urea Nitrogen 29 mg/dL (8-23); Carbon Dioxide 31 mmol/L (22-30); Chloride 104 mmol/L (96-108); Globulin 3.2 gm/dL (2.2-3.7); Glomerular Filtration Rate 31; Glucose 62 mg/dL (70-105)
[2021-01-26] MEDS: FUROSEMIDE 40 MG/4 ML VIAL IV SCH (08:37)
[2021-01-26] MEDS: HEPARIN 5,000 UNIT/ML VIAL SQ SCH (08:37)
[2021-01-26] MEDS: INSULIN LISPRO 1 UNIT/0.01 ML UNIT SQ SCH ×2 (08:39→11:51)
[2021-01-26] MEDS: DOCUSATE SODIUM 100 MG CAPSULE PO SCH (08:40)
[2021-01-26] MEDS ORDERED: SPIRONOLACTONE 25 MG TABLET PO SCH (09:00)
[2021-01-26] MEDS ORDERED: BISOPROLOL 5 MG TABLET PO SCH (09:00)
--- NOTE | 2021-01-26 11:31 | Discharge Summary ---
Discharge Provider Provider Patient information: Note initiated : 01/26/21 at 11:26 am Service Date, if different from initiated Date: [] Patient: Florencio Grace 65 y/o M admitted on 01/22/21 for SOB, Didn't Take Lasix. Chief Complaint: [CHF exacerbation] Patient presents to the ED for left lower extremity edema and weakness. States he went on a trip for over week and got to bring his torsemide. Also complains of a productive cough of white sputum but denies shortness of breath. Patient's leg is significantly swollen for ED patient appears to be in anasarca. Patient also fallen several times during the trip and had some redness around the medial thigh. Patient complains of orthopnea and paroxysmal nocturnal dyspnea which has had for the past couple months and per him seems to be stable. Ultrasound showed what appeared to be a fluid collection but CT showed no fluid collection. Also no soft tissue gas bubbles. extensive subcutaneous edema. Patient was hypoxic at 87% in the ED. He was afebrile. No leukocytosis. Creatinine appear to be slightly above baseline. Pulmonary edema on chest x-ray noted. Date of admission: 01/22/21 15:50 Discharge date: 01/26/21 Primary care physician: Edward Dickson MD Consults: 01/22/21 Consult to Physician [CONS] Stat Comment: Consulting Provider: Aaron Regalado Reason For Exam: Physician to Consult Discharge Meds Discharge Medications Home Medications tamsulosin 0.4 mg PO HS 03/08/18 [History Confirmed 01/22/21 Last Taken 10/23/19 21:00] spironolactone 50 mg tablet 50 mg PO QAM 05/05/19 [History Confirmed 01/22/21 Last Taken 10/23/19 08:00] bisoprolol fumarate 5 mg PO DAILY 06/15/19 [History Confirmed 01/22/21 Last Taken 10/23/19 08:00] atorvastatin 10 mg PO QHS 10/24/19 [History Confirmed 01/22/21 Last Taken 10/23/19 21:00] insulin glargine 100 unit/mL subcutaneous solution 20 unit SUB-Q HS unit 11/30/19 [History Confirmed 01/22/21 Last Taken Unknown] ferrous sulfate 325 mg (65 mg iron) tablet,delayed release 325 mg PO BID 02/29/20 [History Confirmed 01/22/21 Last Taken Unknown] sacubitril 24 mg-valsartan 26 mg tablet 1 tab PO HS 09/13/20 [History Confirmed 01/22/21 Last Taken Unknown] melatonin 20 mg PO QHS PRN 01/22/21 [History Confirmed 01/22/21 Last Taken Unknown] torsemide 40 mg PO QDAY 01/23/21 [History Confirmed 01/23/21 Last Taken Unknown] [id number] [Triple Antibiotic] 1 dose TOPICAL BID #1 ea 01/26/21 [Rx Last Taken Unknown] COURSE Hospital Course Hospital course: 01/23 Patient feeling better with more strength. Feels swelling is improving. Has chronic cough but no change. 01/24: Still on Lasix drip. Been on 2L/min oxygen. Fluid balance: ~-2100cc over the past 24 hours. Denies SOB. Denies cough or wheezing. Denies chest pain. c/o left leg swelling. 01/25: Still on Lasix drip. Been on 2L/min oxygen. Denies SOB. Denies cough or wheezing. Denies chest pain. c/o left leg swelling. 01/26: Reached clinical stability, decision made to discharge home with home oxygen. Discharge diagnosis: CHF exacerbation Time Spent with Patient Time attestation: Total time spent providing and/or coordinating discharge services: 01/23 Patient feeling better with more strength. Feels swelling is improving. Has chronic cough but no change. 01/24: Still on Lasix drip. Been on 2L/min oxygen. Fluid balance: ~-2100cc over the past 24 hours. Denies SOB. Denies cough or wheezing. Denies chest pain. c/o left leg swelling. 01/25: Still on Lasix drip. Been on 2L/min oxygen. Denies SOB. Denies cough or wheezing. Denies chest pain. c/o left leg swelling. 01/26: Reached clinical stability, decision made to discharge home with home oxygen. EXAM Constitutional Vitals: Temp Pulse Resp BP Pulse Ox 36.9 C 66 18 134/59 95 01/26/21 07:25 01/26/21 07:25 01/26/21 07:25 01/26/21 07:25 01/26/21 07:25 General appearance: cooperative and no acute distress Head Head exam: Present atraumatic and normocephalic Eye Eye exam: Present EOMI and PERRL ENT ENT exam: Present mucous membranes moist, normal exam and normal external ear exam Additional comments: Nasal cannula in place Neck Neck exam: Present normal inspection; Absent lymphadenopathy, tenderness and thyromegaly Respiratory Respiratory exam: Present wheezes; Absent accessory muscle use and respiratory distress Cardiovascular Cardiovascular exam: Present normal rate and rhythm; Absent JVD GI/Abdominal GI/Abdominal exam: Present normal bowel sounds and soft; Absent organomegaly and tenderness Rectal Rectal exam: Present deferred Extremities Exam Extremities exam: Present full ROM, normal capillary refill, normal inspection and pedal edema; Absent tenderness Neurological Exam Neurological exam: Present alert, CN II-XII intact and oriented X3; Absent motor sensory deficit Psychiatric Psychiatric exam: Present normal affect and normal mood; Absent anxious and depressed Skin Skin exam: Present dry and intact Discharge Data Data Completed and Pending Labs on day of discharge: Labs from last 24 hours 01/26/21 01/26/21 05:26 05:26 WBC 9.9 RBC 3.32 L Hgb 9.3 L Hct 31.9 L MCV 96.1 MCH 28.0 MCHC 29.2 L RDW 15.6 H Plt Count 156 MPV 10.3 Neut % (Auto) 80.9 H Lymph % (Auto) 7.4 L Hood % (Auto) 10.3 Eos % (Auto) 0.9 Baso % (Auto) 0.5 Lymph # (Auto) 0.73 L Hood # (Auto) 1.02 H Eos # (Auto) 0.09 Baso # (Auto) 0.05 Absolute Neutrophils 8.01 H Sodium 145 Potassium 3.8 Chloride 104 Carbon Dioxide 31 H Anion Gap 10.0 BUN 29 H Creatinine 2.1 H GFR Calculation 31 Glucose 62 L Calcium 8.0 L Total Bilirubin 0.2 AST 11 ALT 7 Alkaline Phosphatase 98 Total Protein 5.7 L Albumin 2.5 L Globulin 3.2 Albumin/Globulin Ratio 0.8 L Discharge Plan Patient/Caregiver Discharge Instructions Activity: increase activity as tolerated Diet: Cardiac Prescriptions: New Triple Antibiotic 3.5-400-5,000 [id number] Ointment In Packet 1 dose topical BID Qty: 1 RF: 0 Continued spironolactone 50 mg tablet 50 mg PO QAM RF: 0 insulin glargine 100 unit/mL solution 20 unit SUB-Q HS RF: 0 ferrous sulfate 325 mg (65 mg iron) tablet,delayed release (DR/EC) 325 mg PO BID RF: 0 Entresto 24-26 mg tablet 1 tab PO HS RF: 0 tamsulosin 0.4 MG capsule 0.4 mg PO HS RF: 0 bisoprolol fumarate 5 MG tablet 5 mg PO DAILY RF: 0 atorvastatin 10 mg Tablet 10 mg PO QHS RF: 0 melatonin 10 mg Tablet 20 mg PO QHS PRN (Reason: Insomnia) RF: 0 torsemide 20 mg Tablet 40 mg PO QDAY RF: 0 Follow Up Plan Follow up with: Edward Dickson MD [Primary Care Provider] - Patient Disposition: Home, Self-Care Prognosis: Fair Rehab Potential: Good I certify that the patient requires SNF services: No Overall status at discharge: patient is progressing back to baseline Discharge Orders: Discharge Order (Routine); Ordered 01/26/21 Ordered By: Jose Chamberlain
[2021-01-26] MEDS: NEOMY SULF/BACITRA/POLYMYXIN B OINT.PACK TOPICAL SCH (11:53)
== END 2021-01-26 16:00 | disposition home or self-care (01) | DRG 291 ==
LOC: ED 05:51 → ICU 15:50 → MEDSUR 01-25 12:52
PROVIDERS: ADMIT Internal Medicine; ATTEND Internal Medicine

== ENCOUNTER 2021-01-30 13:05 | Inpatient (IN) ==
--- NOTE | 2021-01-30 13:51 | Emergency Department Note ---
HPI <Aniya Padilla PA-C - Last Filed: 01/30/21 20:55> General Chief complaint: Extremity Injury, Lower Stated complaint: Leg pain Time Seen by Provider: 01/30/21 13:13 Source: EMS Mode of arrival: EMS Limitations: no limitations History of Present Illness HPI Narrative: Narrative: This patient presents with his sister and a complaint of profound weakness, left thigh leg infection, shortness of breath and diarrhea. Patient was discharged from an inpatient stay on January 26 regarding CHF and JERMAN. At discharge he reports it was recommended that he be transition to a rehab facility, however he declined as he wanted to be discharged home. Since being home his sister and [id number] have been take care of him but report they have been unable to. He has not been able to ambulate since getting home due to being weak. 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 A few weeks ago he was able to walk unassisted. He is been on home oxygen since he was di scharged for his previous day. Prior to that he did not require any supplemental oxygen. He has not needed to turn the oxygen up. He has noted that he has had diarrhea since getting home from the hospital. Sister reports that it has been watery diarrhea. He denies any abdominal discomfort. He has not felt febrile or chilled. He is not had any nausea or vomiting. He has been on antibiotics for an infection to the left thigh which she reports is worsening. He has been taking Augmentin and then was switched to clindamycin. He also gives reported history of a dental infection and it somewhat unclear if the antibiotics are to treat the dental infection or the cellulitis. On review of the patient's prior admission it does not appear he was started on antibiotics during his inpatient stay. Related Data Home Medications Medication Instructions Recorded Confirmed tamsulosin 0.4 mg PO HS 03/08/18 01/30/21 spironolactone 50 mg tablet 50 mg PO QAM 05/05/19 01/30/21 bisoprolol fumarate 5 mg PO DAILY 06/15/19 01/30/21 atorvastatin 10 mg PO QHS 10/24/19 01/30/21 insulin glargine 100 unit/mL 20 unit SUB-Q HS unit 11/30/19 01/30/21 subcutaneous solution ferrous sulfate 325 mg (65 mg 325 mg PO BID 02/29/20 01/30/21 iron) tablet,delayed release sacubitril 24 mg-valsartan 26 mg 1 tab PO HS 09/13/20 01/30/21 tablet melatonin 20 mg PO QHS PRN 01/22/21 01/30/21 torsemide 40 mg PO QDAY 01/23/21 01/30/21 Previous Rx's Medication Instructions Recorded [id number] 1 dose TOPICAL BID #1 ea 01/26/21 [Triple Antibiotic] cephalexin 500 mg PO TID 7 Days #21 cap 01/27/21 Allergies Allergy/AdvReac Type Severity Reaction Status Date / Time No Known Drug Allergies Allergy Verified 01/30/21 13:09 Review of Systems <Aniya Padilla PA-C - Last Filed: 01/30/21 20:55> ROS ROS Narrative: Narrative: Pertinent positives and negatives as noted in HPI. All other systems reviewed and negative. PFSH <Aniya Padilla PA-C - Last Filed: 01/30/21 20:55> Narrative Patient History Narrative: Narrative: Medical/Surgical/Family History All Active Problems (Updated 01/30/21 @ 20:52 by Aniya Padilla PA-C) Cellulitis (Acute) CHF exacerbation (Acute) Cellulitis (Acute) Chronic renal disease (Acute) Anasarca (Acute) Abscess (Acute) Mixed dyslipidemia (Acute) Acute kidney injury (Acute) Congestive heart failure (Chronic) SOB (shortness of breath) (Chronic) Diabetes (Chronic) Hypertension (Chronic) Anemia (Chronic) Dermatitis of lower extremity (Chronic) Pedal edema (Chronic) Hypercoagulable state (Chronic) Pleural effusion (Acute) CKD (chronic kidney disease) stage 3, GFR 30-59 ml/min (Chronic) Hyperphosphatemia (Acute) Non compliance with medical treatment (Chronic) Morbid obesity with BMI of 45.0-49.9, adult (Chronic) rn long term care (current) use of 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 (Chronic) Weakness (Acute) Pleural effusion due to CHF (congestive heart failure) (Acute) Anemia in chronic kidney disease (CKD) (Acute) Hypoxia (Acute) Hypokalemia (Acute) CHF, acute on chronic (Acute) Community acquired pneumonia (Acute) Heart failure, systolic, with acute decompensation (Acute) CKD stage G3a/A3, GFR 45-59 and albumin creatinine ratio >300 mg/g (Chronic) Volume overload state of heart (Chronic) Chest pain (Acute) CHF (congestive heart failure) (Acute) Pleural effusion (Acute) CKD (chronic kidney disease) (Acute) Diabetes (Acute) Hypocalcemia (Chronic) CKD (chronic kidney disease), stage III (Acute) Vitamin D insufficiency (Acute) Acute on chronic combined systolic (congestive) and diastolic (congestive) heart failure (Acute) Abnormal CXR (chest x-ray) (Acute) CHF (congestive heart failure) (Acute) Hypoxia (Acute) CKD stage G3b/A3, GFR 30-44 and albumin creatinine ratio >300 mg/g (Acute) Acute CHF (congestive heart failure) (Acute) Hematoma (Acute) Medical History (Updated 01/30/21 @ 20:52 by Aniya Padilla PA-C) JERMAN (acute kidney injury) Anemia Ankle fracture Chronic wound of extremity CKD (chronic kidney disease) stage 3, GFR 30-59 ml/min Colon cancer Community acquired pneumonia Congestive heart failure Dermatitis of lower extremity Diabetes Heart failure with acute decompensation, type unknown Hypercoagulable state Hyperphosphatemia Hypertension Localized edema due to fluid overload detention (current) use of 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 Warfarin (for hypercoagulable state?) Morbid obesity with BMI of 45.0-49.9, adult Non compliance with medical treatment Osteomyelitis of ankle Pedal edema Pleural effusion s/p thoracentesis 01/2019 Pulmonary edema Pulmonary embolism SOB (shortness of breath) Surgical History History of open reduction and internal fixation (ORIF) procedure Right Arm History of orthopedic surgery Irrigation and debridement 2017 Right Ankle History of partial colectomy History of total replacement of right ankle 11/12/17 Dr Muro Hx of right BKA Family History Mother Bruising Bleeding Clotting disorder Father Prostate cancer Social History Smoking Status: Never smoker Alcohol Intake Frequency: does not drink Substance Use: does not use Exam <Aniya Padilla PA-C - Last Filed: 01/30/21 20:55> Narrative Narrative: Narrative: Vital signs noted General: mild distress. Skin: Warm. Dry. No rash. Pale color. Eyes: PERRL. EOMI. Mouth: Membranes moist. Normal inspection. Neck: Good ROM. No meningeal signs. Supple. Cardiovascular: irregularly irregular rhythm no murmur. Respiratory: Tachypnea. breath sounds equal. Diminished sounds in the bases. No wheezing/rales/rhonchi. Gastrointestinal: Abdomen soft. No tenderness. No distention. Normal bowel sounds. No rebound tenderness or guarding. Yellow appearing stool. Guaiac positive. No external hemorrhoids noted. Back: Normal inspection. Extremities: BKA to the right. 3+ pitting edema to the left lower extremity. Pitting edema noted up to the abdominal wall. There is erythematous abscess to the left anterior thigh with central fluctuance. Erythema extends to the majority of the anterior portion of the thigh. Neurological: No focal neurological deficits observed. Alert. Oriented x 3 General Limitations: no limitations Course <Aniya Padilla PA-C - Last Filed: 01/30/21 20:55> Course Course Narrative: An IV is established Labs ordered reviewed Patient is tachypneic and there is a source of infection noted to the left thigh. Blood cultures are drawn. Lactic acid is 1 Procalcitonin is 0.25 Portable chest x-ray is without acute changes and shows chronic pulmonary congestion Ekg shows atrial fibrillation at a rate of 99. QRS complexes are narrow and at irregular intervals. No ST elevation or depression. Occasional PVC. Abscess to the left leg is drained. See procedure note. Wound culture with Gram stain as well as anaerobic culture are pending. Patient treated with IV Lasix. He is able to tolerate oral fluids. Mayo catheter is in place which was in place at his prior discharge. UA flags for culture and sensitivity. He is not having any abdominal discomfort or urinary symptoms so treatment will be delayed at this time. Patient does report that he had a scant amount of blood noted in his underwear earlier. On rectal exam no hemorrhoids are noted. He did not have any tenderness. No bright red blood. He did have faintly positive guaiac. This has not previously occurred he has no prior history of GI bleed. This is thought to possibly be related to an internal hemorrhoid. H&H is unchanged compared to discharge. Patient is discussed with the hospital service who reviews the patient's case and evaluate the patient bedside. He does not believe the patient is appropriate for this facility given his advanced cardiac disease with low ejection fraction, fluid overload and renal injury. He does recommend the patient be transferred to a facility with cardiology and nephrology service in house. Patient will be treated with Rocephin for his cellulitis. Antibiotics were initially delayed pending stool evaluation, however the patient is not able to provide a stool sample here in the emergency department. On rectal exam stool did seem quite pastelike and I question whether or not it was actually watery. Stool orders are still pending. Patient is pending transfer to my shift. Facilities with an several 100 miles are contacted. He is waitlisted at [facility] and [facility]. No other facilities have space. At this time the patient will be boarded in the emergency department pending acceptance to another facility. Vital Signs Vital signs: Vital Signs Temperature 97.9 F 01/30/21 13:06 Pulse Rate 81 01/30/21 13:06 Respiratory Rate 20 01/30/21 13:06 Blood Pressure 163/73 01/30/21 13:06 Pulse Oximetry (%) 98 01/30/21 13:06 Temperature 97.9 F 01/30/21 13:06 Pulse Rate 93 H 01/30/21 19:31 Respiratory Rate 25 H 01/31/21 00:56 Blood Pressure 179/72 01/30/21 20:01 Pulse Oximetry (%) 97 01/30/21 19:31 [facility] <Aniya Padilla PA-C - Last Filed: 01/30/21 20:55> [facility] Narrative Medical decision making narrative: Narrative: Lab Data Result diagrams: 01/30/21 14:08 01/30/21 14:08 Labs: Lab Results 01/30/21 01/30/21 01/30/21 Range/Units 14:08 14:08 14:08 WBC 10.7 (4.5-11.0) K/mcL RBC 3.80 L (4.63-6.08) M/mcL Hgb 10.6 L (13.7-17.5) g/dL Hct 36.5 L (40.1-51.0) % POC Hct 34 L (41-55) % MCV 96.1 (80.0-100.0) fL MCH 27.9 (26.0-34.0) pg MCHC 29.0 L (31.0-36.0) g/dL RDW 15.5 H (11.5-14.5) % Plt Count 175 (140-440) K/mcL MPV 10.3 (7.4-10.4) fL Neut % (Auto) 86.4 H (38.0-78.0) % Lymph % (Auto) 5.3 L (15.5-49.0) % [place] % (Auto) 6.8 (1.0-12.0) % Eos % (Auto) 1.2 (0.0-7.0) % Baso % (Auto) 0.3 (0.0-2.0) % Lymph # (Auto) 0.57 L (1.50-4.80) K/mcL [place] # (Auto) 0.73 (0.10-0.90) K/mcL Eos # (Auto) 0.13 (0.00-0.70) K/mcL Baso # (Auto) 0.03 (0.00-0.30) K/mcL Absolute Neutrophils 9.22 H (1.80-8.00) K/mcL VBG Lactic Acid 1.0 (0.5-2.0) mmol/L POC Sodium 143 (133-145) mEq/L Sodium 141 (133-145) mmol/L POC Potassium 3.7 (3.3-5.1) mEql/L Potassium 3.8 (3.3-5.1) mmol/L POC Chloride 98 (96-108) mEq/L Chloride 101 (96-108) mmol/L Carbon Dioxide 28 (22-30) mmol/L POC Total CO2 31 H (22-30) mmol/L Anion Gap 12.0 (8.0-16.0) POC BUN 33 H (6-20) mg/dL BUN 31 H (8-23) mg/dL Creatinine 1.9 H (0.7-1.2) mg/dL POC Creatinine 2.0 H (0.6-1.2) mg/dL GFR Calculation 36 Glucose 155 H (70-105) mg/dL POC Glucose 155 H (70-105) mg/dL Calcium 8.4 L (8.6-10.4) mg/dL POC WB Ioniz Calcium 1.04 L (1.16-1.32) mmEq/L Total Bilirubin 0.3 (0.1-1.0) mg/dL AST 13 (<40) U/L ALT 7 (<40) U/L Alkaline Phosphatase 101 (39-117) U/L Troponin T (<0.03) ng/mL NT-Pro-B Natriuret Pep (<125.0) pg/mL Total Protein 6.8 (5.9-8.4) gm/dL Albumin 2.8 L (3.2-5.2) gm/dL Globulin 4.0 H (2.2-3.7) gm/dL Albumin/Globulin Ratio 0.7 L (1.0-2.3) Procalcitonin (<0.10) ng/mL Urine Color Urine Appearance (Clear) Urine pH (5.0-9.0) Ur Specific [place] (1.000-1.035) Urine Protein (Negative) mg/dL Urine Glucose (UA) (Negative) mg/dL Urine Ketones (Negative) mg/dL Urine Occult Blood (Negative) mg/dL Urine Nitrate (Negative) Urine Bilirubin (Negative) mg/dL Urine Urobilinogen mg/dL Ur Leukocyte Esterase (Negative) /uL Urine RBC (0-1) /hpf Urine WBC (0-4) /hpf Ur Squamous Epith Cells (0-4) /hpf Urine Bacteria (0) /hpf Hyaline Casts (0-2) /lph Urine Mucus (None) /hpf Ur Culture Indicated? 01/30/21 01/30/21 01/30/21 Range/Units 14:08 14:08 14:28 WBC (4.5-11.0) K/mcL RBC (4.63-6.08) M/mcL Hgb (13.7-17.5) g/dL Hct (40.1-51.0) % POC Hct (41-55) % MCV (80.0-100.0) fL MCH (26.0-34.0) pg MCHC (31.0-36.0) g/dL RDW (11.5-14.5) % Plt Count (140-440) K/mcL MPV (7.4-10.4) fL Neut % (Auto) (38.0-78.0) % Lymph % (Auto) (15.5-49.0) % [place] % (Auto) (1.0-12.0) % Eos % (Auto) (0.0-7.0) % Baso % (Auto) (0.0-2.0) % Lymph # (Auto) (1.50-4.80) K/mcL [place] # (Auto) (0.10-0.90) K/mcL Eos # (Auto) (0.00-0.70) K/mcL Baso # (Auto) (0.00-0.30) K/mcL Absolute Neutrophils (1.80-8.00) K/mcL VBG Lactic Acid (0.5-2.0) mmol/L POC Sodium (133-145) mEq/L Sodium (133-145) mmol/L POC Potassium (3.3-5.1) mEql/L Potassium (3.3-5.1) mmol/L POC Chloride (96-108) mEq/L Chloride (96-108) mmol/L Carbon Dioxide (22-30) mmol/L POC Total CO2 (22-30) mmol/L Anion Gap (8.0-16.0) POC BUN (6-20) mg/dL BUN (8-23) mg/dL Creatinine (0.7-1.2) mg/dL POC Creatinine (0.6-1.2) mg/dL GFR Calculation Glucose (70-105) mg/dL POC Glucose (70-105) mg/dL Calcium (8.6-10.4) mg/dL POC WB Ioniz Calcium (1.16-1.32) mmEq/L Total Bilirubin (0.1-1.0) mg/dL AST (<40) U/L ALT (<40) U/L Alkaline Phosphatase (39-117) U/L Troponin T (<0.03) ng/mL NT-Pro-B Natriuret Pep 05627.0 H (<125.0) pg/mL Total Protein (5.9-8.4) gm/dL Albumin (3.2-5.2) gm/dL Globulin (2.2-3.7) gm/dL Albumin/Globulin Ratio (1.0-2.3) Procalcitonin 0.25 H (<0.10) ng/mL Urine Color Yellow Urine Appearance Hazy A (Clear) Urine pH 5.0 (5.0-9.0) Ur Specific [place] 1.016 (1.000-1.035) Urine Protein 100 A (Negative) mg/dL Urine Glucose (UA) 50 A (Negative) mg/dL Urine Ketones Negative (Negative) mg/dL Urine Occult Blood 0.20 (Negative) mg/dL Urine Nitrate Negative (Negative) Urine Bilirubin Negative (Negative) mg/dL Urine Urobilinogen Negative mg/dL Ur Leukocyte Esterase 75 A (Negative) /uL Urine RBC > 182 H (0-1) /hpf Urine WBC 18 H (0-4) /hpf Ur Squamous Epith Cells 0 (0-4) /hpf Urine Bacteria None (0) /hpf Hyaline Casts 7 H (0-2) /lph Urine Mucus Few A (None) /hpf Ur Culture Indicated? yes 01/30/21 Range/Units 22:52 WBC (4.5-11.0) K/mcL RBC (4.63-6.08) M/mcL Hgb (13.7-17.5) g/dL Hct (40.1-51.0) % POC Hct (41-55) % MCV (80.0-100.0) fL MCH (26.0-34.0) pg MCHC (31.0-36.0) g/dL RDW (11.5-14.5) % Plt Count (140-440) K/mcL MPV (7.4-10.4) fL Neut % (Auto) (38.0-78.0) % Lymph % (Auto) (15.5-49.0) % [place] % (Auto) (1.0-12.0) % Eos % (Auto) (0.0-7.0) % Baso % (Auto) (0.0-2.0) % Lymph # (Auto) (1.50-4.80) K/mcL [place] # (Auto) (0.10-0.90) K/mcL Eos # (Auto) (0.00-0.70) K/mcL Baso # (Auto) (0.00-0.30) K/mcL Absolute Neutrophils (1.80-8.00) K/mcL VBG Lactic Acid (0.5-2.0) mmol/L POC Sodium (133-145) mEq/L Sodium (133-145) mmol/L POC Potassium (3.3-5.1) mEql/L Potassium (3.3-5.1) mmol/L POC Chloride (96-108) mEq/L Chloride (96-108) mmol/L Carbon Dioxide (22-30) mmol/L POC Total CO2 (22-30) mmol/L Anion Gap (8.0-16.0) POC BUN (6-20) mg/dL BUN (8-23) mg/dL Creatinine (0.7-1.2) mg/dL POC Creatinine (0.6-1.2) mg/dL GFR Calculation Glucose (70-105) mg/dL POC Glucose (70-105) mg/dL Calcium (8.6-10.4) mg/dL POC WB Ioniz Calcium (1.16-1.32) mmEq/L Total Bilirubin (0.1-1.0) mg/dL AST (<40) U/L ALT (<40) U/L Alkaline Phosphatase (39-117) U/L Troponin T 0.04 H* (<0.03) ng/mL NT-Pro-B Natriuret Pep (<125.0) pg/mL Total Protein (5.9-8.4) gm/dL Albumin (3.2-5.2) gm/dL Globulin (2.2-3.7) gm/dL Albumin/Globulin Ratio (1.0-2.3) Procalcitonin (<0.10) ng/mL Urine Color Urine Appearance (Clear) Urine pH (5.0-9.0) Ur Specific [place] (1.000-1.035) Urine Protein (Negative) mg/dL Urine Glucose (UA) (Negative) mg/dL Urine Ketones (Negative) mg/dL Urine Occult Blood (Negative) mg/dL Urine Nitrate (Negative) Urine Bilirubin (Negative) mg/dL Urine Urobilinogen mg/dL Ur Leukocyte Esterase (Negative) /uL Urine RBC (0-1) /hpf Urine WBC (0-4) /hpf Ur Squamous Epith Cells (0-4) /hpf Urine Bacteria (0) /hpf Hyaline Casts (0-2) /lph Urine Mucus (None) /hpf Ur Culture Indicated? Discharge Plan Patient/Caregiver Discharge Instructions Pt seen by [employer]/PA only: Yes Clinical Impression: Anasarca, Abscess CHF exacerbation Qualifiers: Heart failure type: unspecified Qualified Code(s): I50.9 - Heart failure, unspecified Cellulitis Qualifiers: Site of cellulitis: extremity Site of cellulitis of extremity: lower extremity Laterality: left Qualified Code(s): L03.116 - Cellulitis of left lower limb Chronic renal disease Qualifiers: Chronic kidney disease stage: unspecified stage Qualified Code(s): N18.9 - Chronic kidney disease, unspecified Patient Disposition: Still a Patient Follow up with: Ariana Dai [Primary Care Provider] - Prescriptions: No Action spironolactone 50 mg tablet 50 mg PO QAM RF: 0 insulin glargine 100 unit/mL solution 20 unit SUB-Q HS RF: 0 ferrous sulfate 325 mg (65 mg iron) tablet,delayed release (DR/EC) 325 mg PO BID RF: 0 Entresto 24-26 mg tablet 1 tab PO HS RF: 0 tamsulosin 0.4 MG capsule 0.4 mg PO HS RF: 0 bisoprolol fumarate 5 MG tablet 5 mg PO DAILY RF: 0 atorvastatin 10 mg Tablet 10 mg PO QHS RF: 0 melatonin 10 mg Tablet 20 mg PO QHS PRN (Reason: Insomnia) RF: 0 torsemide 20 mg Tablet 40 mg PO QDAY RF: 0 Triple Antibiotic 3.5-400-5,000 [id number] Ointment In Packet 1 dose topical BID Qty: 1 RF: 0 cephalexin 500 MG capsule 500 mg PO TID 7 Days Qty: 21 RF: 0
[2021-01-30 14:25] LABS: POC Blood Urea Nitrogen 33 mg/dL (6-20); POC CO2 31 mmol/L (22-30); POC Calcium, Ionized 1.04 mmEq/L (1.16-1.32); POC Chloride 98 mEq/L (96-108); POC Glucose, Random 155 mg/dL (70-105); POC Hematocrit 34 % (41-55); POC Potassium 3.7 mEql/L (3.3-5.1); POC Sodium 143 mEq/L (133-145)
--- NOTE | 2021-01-30 14:39 | XRay Report ---
HISTORY: Increased weakness, leg pain, history of congestive heart failure FINDINGS: Lung volumes are small due to poor inspiration. There is partial consolidation in the basilar segments of both lower lobes. The consolidation in the right lung bases as become slightly worse since 01/27/21. There may be small bilateral subpulmonic pleural effusions. The pulmonary vessels, best seen in the upper lobes appear mildly engorged. The heart remains enlarged but is magnified. There has been relatively little change from prior exams from 01/27/2021 through 10/24/2019. IMPRESSION: Chronic congestive heart failure. Atelectasis or pneumonia in both lung bases Interpreted and Authenticated by: Tony Davila 01/30/21
[2021-01-30 15:08] LABS: Basophils # (Auto) 0.03 K/mcL (0.00-0.30); Basophils % (Auto) 0.3 % (0.0-2.0); Eosinophils # (Auto) 0.13 K/mcL (0.00-0.70); Eosinophils % (Auto) 1.2 % (0.0-7.0); Hematocrit 36.5 % (40.1-51.0); Hemoglobin 10.6 g/dL (13.7-17.5); Lymphocytes # (Auto) 0.57 K/mcL (1.50-4.80); Lymphocytes % (Auto) 5.3 % (15.5-49.0); Mean Cell Volume 96.1 fL (80.0-100.0); Mean Platelet Volume 10.3 fL (7.4-10.4); Monocytes # (Auto) 0.73 K/mcL (0.10-0.90); Monocytes % (Auto) 6.8 % (1.0-12.0); Neutrophils % (Auto) 86.4 % (38.0-78.0); Platelet Count 175 K/mcL (140-440); Red Cell Distribution Width 15.5 % (11.5-14.5); WBC 10.7 K/mcL (4.5-11.0)
[2021-01-30 15:33] LABS: Appearance,Urine HAZY (Clear); Bilirubin,Urine Negative (Negative); Color,Urine YELLOW; Culture Indicated,Urine yes; Glucose,Urine (UA) 50 mg/dL (Negative); Ketones,Urine Negative (Negative); Leukocyte Esterase,Urine 75 /uL (Negative); Mucus,Urine FEW /hpf; Nitrate,Urine Negative (Negative); Protein,Urine 100 mg/dL (Negative); Specific Gravity,Urine 1.016 (1.000-1.035); Urine Hyaline Cast 7 /lph (0-2); Urine RBC > 182 /hpf (0-1); Urine Squamous Epithelial Cell 0 /hpf (0-4); Urine WBC 18 /hpf (0-4); Urobilinogen,Urine Negative
[2021-01-30 15:40] LABS: ALT/SGPT 7 U/L (<40); AST/SGOT 13 U/L (<40); Albumin 2.8 gm/dL (3.2-5.2); Albumin/Globulin Ratio 0.7 (1.0-2.3); Alkaline Phosphatase 101 U/L (39-117); Bilirubin,Total 0.3 mg/dL (0.1-1.0); Blood Urea Nitrogen 31 mg/dL (8-23); Calcium 8.4 mg/dL (8.6-10.4); Carbon Dioxide 28 mmol/L (22-30); Chloride 101 mmol/L (96-108); Glomerular Filtration Rate 36; Glucose 155 mg/dL (70-105)
[2021-01-30] MEDS ORDERED: fentaNYL 100 MCG/2 ML VIAL IV ONE (16:19)
[2021-01-30] MEDS ORDERED: FUROSEMIDE 100 MG/10 ML VIAL IV ONE (17:36)
[2021-01-30] MEDS ORDERED: 0.9 % SODIUM CHLORIDE 1,000 ML IV SCH (17:45)
[2021-01-30] MEDS ORDERED: cefTRIAXone 2 GM in DEXTROSE 5% IN WATER 50 ML IV ONE (20:48)
[2021-01-30] MEDS ORDERED: VANCOMYCIN PER PHARMACY IV ONE (21:14)
--- NOTE | 2021-01-30 21:17 | Emergency Department Note ---
ED Note Addendum <Aniya Padilla PA-C - Last Filed: 01/30/21 21:17> Note Addendum: Incision and drainage procedure Abscess to the left thigh is cleansed using chlorhexidine gluconate. Anesthesia is administered centrally using 1 cc of lidocaine with epinephrine. A 2 cm vertical incision is made and copious purulent discharge is expressed. Approximately 100 cc of purulent discharge is expressed. Wound cavity is probed with hemostat and identified to be 9 cm in diameter. It does not probe deep, only superficially in the subcutaneous tissue. Cavity is then flushed with normal saline with Hibiclens, 50 cc. Additional purulent fluid and debris is expressed. Packing is placed in a loosefitting bandage.
[2021-01-30] MEDS ORDERED: VANCOMYCIN 1,500 MG in 0.9 % SODIUM CHLORIDE 500 ML IV ONE (21:24)
--- NOTE | 2021-01-31 07:43 | Emergency Department Note ---
Course Vital Signs Vital signs: Vital Signs Temperature 97.9 F 01/30/21 13:06 Pulse Rate 81 01/30/21 13:06 Respiratory Rate 20 01/30/21 13:06 Blood Pressure 163/73 01/30/21 13:06 Pulse Oximetry (%) 98 01/30/21 13:06 Temperature 97.9 F 01/30/21 13:06 Pulse Rate 75 01/31/21 10:16 Respiratory Rate 24 H 01/31/21 10:16 Blood Pressure 148/62 01/31/21 10:16 Pulse Oximetry (%) 100 01/31/21 10:16 MDM MDM Narrative Medical decision making narrative: I assumed care from Dr. Gonsalves at the change of shift. I evaluated the patient in person at 7:40 AM. He is resting comfortably and awakens to verbal stimuli. He notes that his edema and shortness of breath have been improving. The wound in his left upper leg does have a small amount of purulent drainage present. There is surrounding edema and blanching erythema to the soft tissues without any palpable fluctuance or crepitus to the soft tissues. The erythema does not extend into his perineum. I see no evidence of Gurpreet's gangrene. We will reassess his electrolytes and potentially once again try to admit him to our hospital. Patient's renal function is stable. His troponin has chronic elevation but is not uptrending. I discussed his presentation with Dr. Murillo who still recommended transfer to another facility. I then spoke with Dr. Tovar in [place]. She discussed the patient's clinical situation with Dr. Murillo and he accepts admission to his service. I updated the patient with the plan of care. Lab Data Lab results reviewed: Yes I reviewed the patient's lab results. Result diagrams: 01/30/21 14:08 01/30/21 14:08 Labs: Lab Results 01/30/21 01/30/21 01/30/21 Range/Units 14:08 14:08 14:08 WBC 10.7 (4.5-11.0) K/mcL RBC 3.80 L (4.63-6.08) M/mcL Hgb 10.6 L (13.7-17.5) g/dL Hct 36.5 L (40.1-51.0) % POC Hct 34 L (41-55) % MCV 96.1 (80.0-100.0) fL MCH 27.9 (26.0-34.0) pg MCHC 29.0 L (31.0-36.0) g/dL RDW 15.5 H (11.5-14.5) % Plt Count 175 (140-440) K/mcL MPV 10.3 (7.4-10.4) fL Neut % (Auto) 86.4 H (38.0-78.0) % Lymph % (Auto) 5.3 L (15.5-49.0) % [place] % (Auto) 6.8 (1.0-12.0) % Eos % (Auto) 1.2 (0.0-7.0) % Baso % (Auto) 0.3 (0.0-2.0) % Lymph # (Auto) 0.57 L (1.50-4.80) K/mcL [place] # (Auto) 0.73 (0.10-0.90) K/mcL Eos # (Auto) 0.13 (0.00-0.70) K/mcL Baso # (Auto) 0.03 (0.00-0.30) K/mcL Absolute Neutrophils 9.22 H (1.80-8.00) K/mcL VBG Lactic Acid 1.0 (0.5-2.0) mmol/L POC Sodium 143 (133-145) mEq/L Sodium 141 (133-145) mmol/L POC Potassium 3.7 (3.3-5.1) mEql/L Potassium 3.8 (3.3-5.1) mmol/L POC Chloride 98 (96-108) mEq/L Chloride 101 (96-108) mmol/L Carbon Dioxide 28 (22-30) mmol/L POC Total CO2 31 H (22-30) mmol/L Anion Gap 12.0 (8.0-16.0) POC BUN 33 H (6-20) mg/dL BUN 31 H (8-23) mg/dL Creatinine 1.9 H (0.7-1.2) mg/dL POC Creatinine 2.0 H (0.6-1.2) mg/dL GFR Calculation 36 Glucose 155 H (70-105) mg/dL POC Glucose 155 H (70-105) mg/dL Calcium 8.4 L (8.6-10.4) mg/dL POC WB Ioniz Calcium 1.04 L (1.16-1.32) mmEq/L Total Bilirubin 0.3 (0.1-1.0) mg/dL AST 13 (<40) U/L ALT 7 (<40) U/L Alkaline Phosphatase 101 (39-117) U/L Troponin T (<0.03) ng/mL NT-Pro-B Natriuret Pep (<125.0) pg/mL Total Protein 6.8 (5.9-8.4) gm/dL Albumin 2.8 L (3.2-5.2) gm/dL Globulin 4.0 H (2.2-3.7) gm/dL Albumin/Globulin Ratio 0.7 L (1.0-2.3) Procalcitonin (<0.10) ng/mL Urine Color Urine Appearance (Clear) Urine pH (5.0-9.0) Ur Specific [place] (1.000-1.035) Urine Protein (Negative) mg/dL Urine Glucose (UA) (Negative) mg/dL Urine Ketones (Negative) mg/dL Urine Occult Blood (Negative) mg/dL Urine Nitrate (Negative) Urine Bilirubin (Negative) mg/dL Urine Urobilinogen mg/dL Ur Leukocyte Esterase (Negative) /uL Urine RBC (0-1) /hpf Urine WBC (0-4) /hpf Ur Squamous Epith Cells (0-4) /hpf Urine Bacteria (0) /hpf Hyaline Casts (0-2) /lph Urine Mucus (None) /hpf Ur Culture Indicated? 01/30/21 01/30/21 01/30/21 Range/Units 14:08 14:08 14:28 WBC (4.5-11.0) K/mcL RBC (4.63-6.08) M/mcL Hgb (13.7-17.5) g/dL Hct (40.1-51.0) % POC Hct (41-55) % MCV (80.0-100.0) fL MCH (26.0-34.0) pg MCHC (31.0-36.0) g/dL RDW (11.5-14.5) % Plt Count (140-440) K/mcL MPV (7.4-10.4) fL Neut % (Auto) (38.0-78.0) % Lymph % (Auto) (15.5-49.0) % [place] % (Auto) (1.0-12.0) % Eos % (Auto) (0.0-7.0) % Baso % (Auto) (0.0-2.0) % Lymph # (Auto) (1.50-4.80) K/mcL [place] # (Auto) (0.10-0.90) K/mcL Eos # (Auto) (0.00-0.70) K/mcL Baso # (Auto) (0.00-0.30) K/mcL Absolute Neutrophils (1.80-8.00) K/mcL VBG Lactic Acid (0.5-2.0) mmol/L POC Sodium (133-145) mEq/L Sodium (133-145) mmol/L POC Potassium (3.3-5.1) mEql/L Potassium (3.3-5.1) mmol/L POC Chloride (96-108) mEq/L Chloride (96-108) mmol/L Carbon Dioxide (22-30) mmol/L POC Total CO2 (22-30) mmol/L Anion Gap (8.0-16.0) POC BUN (6-20) mg/dL BUN (8-23) mg/dL Creatinine (0.7-1.2) mg/dL POC Creatinine (0.6-1.2) mg/dL GFR Calculation Glucose (70-105) mg/dL POC Glucose (70-105) mg/dL Calcium (8.6-10.4) mg/dL POC WB Ioniz Calcium (1.16-1.32) mmEq/L Total Bilirubin (0.1-1.0) mg/dL AST (<40) U/L ALT (<40) U/L Alkaline Phosphatase (39-117) U/L Troponin T (<0.03) ng/mL NT-Pro-B Natriuret Pep 91718.0 H (<125.0) pg/mL Total Protein (5.9-8.4) gm/dL Albumin (3.2-5.2) gm/dL Globulin (2.2-3.7) gm/dL Albumin/Globulin Ratio (1.0-2.3) Procalcitonin 0.25 H (<0.10) ng/mL Urine Color Yellow Urine Appearance Hazy A (Clear) Urine pH 5.0 (5.0-9.0) Ur Specific [place] 1.016 (1.000-1.035) Urine Protein 100 A (Negative) mg/dL Urine Glucose (UA) 50 A (Negative) mg/dL Urine Ketones Negative (Negative) mg/dL Urine Occult Blood 0.20 (Negative) mg/dL Urine Nitrate Negative (Negative) Urine Bilirubin Negative (Negative) mg/dL Urine Urobilinogen Negative mg/dL Ur Leukocyte Esterase 75 A (Negative) /uL Urine RBC > 182 H (0-1) /hpf Urine WBC 18 H (0-4) /hpf Ur Squamous Epith Cells 0 (0-4) /hpf Urine Bacteria None (0) /hpf Hyaline Casts 7 H (0-2) /lph Urine Mucus Few A (None) /hpf Ur Culture Indicated? yes 01/30/21 01/31/21 01/31/21 Range/Units 22:52 08:00 08:00 WBC (4.5-11.0) K/mcL RBC (4.63-6.08) M/mcL Hgb (13.7-17.5) g/dL Hct (40.1-51.0) % POC Hct 27 L (41-55) % MCV (80.0-100.0) fL MCH (26.0-34.0) pg MCHC (31.0-36.0) g/dL RDW (11.5-14.5) % Plt Count (140-440) K/mcL MPV (7.4-10.4) fL Neut % (Auto) (38.0-78.0) % Lymph % (Auto) (15.5-49.0) % [place] % (Auto) (1.0-12.0) % Eos % (Auto) (0.0-7.0) % Baso % (Auto) (0.0-2.0) % Lymph # (Auto) (1.50-4.80) K/mcL [place] # (Auto) (0.10-0.90) K/mcL Eos # (Auto) (0.00-0.70) K/mcL Baso # (Auto) (0.00-0.30) K/mcL Absolute Neutrophils (1.80-8.00) K/mcL VBG Lactic Acid (0.5-2.0) mmol/L POC Sodium 144 (133-145) mEq/L Sodium (133-145) mmol/L POC Potassium 3.9 (3.3-5.1) mEql/L Potassium (3.3-5.1) mmol/L POC Chloride 102 (96-108) mEq/L Chloride (96-108) mmol/L Carbon Dioxide (22-30) mmol/L POC Total CO2 32 H (22-30) mmol/L Anion Gap (8.0-16.0) POC BUN 31 H (6-20) mg/dL BUN (8-23) mg/dL Creatinine (0.7-1.2) mg/dL POC Creatinine 2.0 H (0.6-1.2) mg/dL GFR Calculation Glucose (70-105) mg/dL POC Glucose 124 H (70-105) mg/dL Calcium (8.6-10.4) mg/dL POC WB Ioniz Calcium 1.07 L (1.16-1.32) mmEq/L Total Bilirubin (0.1-1.0) mg/dL AST (<40) U/L ALT (<40) U/L Alkaline Phosphatase (39-117) U/L Troponin T 0.04 H* 0.04 H* (<0.03) ng/mL NT-Pro-B Natriuret Pep (<125.0) pg/mL Total Protein (5.9-8.4) gm/dL Albumin (3.2-5.2) gm/dL Globulin (2.2-3.7) gm/dL Albumin/Globulin Ratio (1.0-2.3) Procalcitonin (<0.10) ng/mL Urine Color Urine Appearance (Clear) Urine pH (5.0-9.0) Ur Specific [place] (1.000-1.035) Urine Protein (Negative) mg/dL Urine Glucose (UA) (Negative) mg/dL Urine Ketones (Negative) mg/dL Urine Occult Blood (Negative) mg/dL Urine Nitrate (Negative) Urine Bilirubin (Negative) mg/dL Urine Urobilinogen mg/dL Ur Leukocyte Esterase (Negative) /uL Urine RBC (0-1) /hpf Urine WBC (0-4) /hpf Ur Squamous Epith Cells (0-4) /hpf Urine Bacteria (0) /hpf Hyaline Casts (0-2) /lph Urine Mucus (None) /hpf Ur Culture Indicated? Discharge Plan Patient/Caregiver Discharge Instructions Pt seen by SLEEP SCIENTIST/PA only: Yes Clinical Impression: CHF exacerbation, Cellulitis, Chronic renal disease, Anasarca, Abscess Patient Disposition: Xfer As Inpt ([facility]) Follow up with: Ariana Dai [Primary Care Provider] - Prescriptions: No Action spironolactone 50 mg tablet 50 mg PO QAM RF: 0 insulin glargine 100 unit/mL solution 20 unit SUB-Q HS RF: 0 ferrous sulfate 325 mg (65 mg iron) tablet,delayed release (DR/EC) 325 mg PO BID RF: 0 Entresto 24-26 mg tablet 1 tab PO HS RF: 0 tamsulosin 0.4 MG capsule 0.4 mg PO HS RF: 0 bisoprolol fumarate 5 MG tablet 5 mg PO DAILY RF: 0 atorvastatin 10 mg Tablet 10 mg PO QHS RF: 0 melatonin 10 mg Tablet 20 mg PO QHS PRN (Reason: Insomnia) RF: 0 torsemide 20 mg Tablet 40 mg PO QDAY RF: 0 Triple Antibiotic 3.5-400-5,000 [id number] Ointment In Packet 1 dose topical BID Qty: 1 RF: 0 cephalexin 500 MG capsule 500 mg PO TID 7 Days Qty: 21 RF: 0
[2021-01-31 08:15] LABS: POC Blood Urea Nitrogen 31 mg/dL (6-20); POC CO2 32 mmol/L (22-30); POC Calcium, Ionized 1.07 mmEq/L (1.16-1.32); POC Chloride 102 mEq/L (96-108); POC Glucose, Random 124 mg/dL (70-105); POC Hematocrit 27 % (41-55); POC Potassium 3.9 mEql/L (3.3-5.1); POC Sodium 144 mEq/L (133-145)
[2021-01-31] MEDS ORDERED: ASPIRIN 325 MG ENTERIC COATED TABLET PO SCH (09:00)
[2021-01-31] MEDS ORDERED: VANCOMYCIN PER PHARMACY IV ONE (09:25)
[2021-01-31] MEDS ORDERED: MELATONIN 10 MG PO PRN (09:26)
--- NOTE | 2021-01-31 13:07 | Internal Med History&Physical ---
HPI History of Present Illness Patient information: Note initiated : 01/31/21 at 12:55 pm Service Date, if different from initiated Date: [] Patient: Florencio Grace 65 y/o M admitted on for Leg pain. Chief Complaint: [] History of present illness: Mr. Grace is a 65 year old male with a history of combined systolic and diastolic heart failure, CKD stage III, type 2 diabetes mellitus, right BKA, obesity who was recently hospitalized for cute on chronic heart failure. The patient was recommended to do rehab in long term facility however decided to go home instead. The patient did poorly at home, developed left thigh redness and swelling and return to the ED with abscess and cellulitis of the left thigh and acute on chronic heart failure. Hospital medicine was asked to admit the patient however recommended transferring the patient to a higher level of care. Multiple attempts were made to transfer the patient however no beds were available therefore hospital medicine admitted the patient to [facility]. In the ED, the patient had an I&D of the left thigh abscess with cultures taken. Patient was started on vancomycin IV and diuretics for acute on chronic heart failure. Patient is requiring 2 L/min oxygen via nasal cannula in the ED. Per the records, the patient was discharged on oxygen recent hospitalization however had not required oxygen supplementation prior to that hospitalization. Review of systems Constitutional: no fever, fatigue, or weight loss Eyes: no vision changes or pain Cardiovascular: no chest pain, no palpitations Respiratory: positive for dyspnea Gastrointestinal: no abdominal pain, no nausea, vomiting, or diarrhea Genitourinary: no dysuria or difficulty voiding Musculoskeletal: lower extremity edema Integumentary: left thigh redness and tenderness Neurological: no focal weakness or numbness Psychiatric: no anxiety or depression Physical exam General: 65-year-old chronically appearing male in no apparent distress Head: Atraumatic, normal inspection. Eyes: normal appearance, no scleral icterus. Neck: full ROM Respiratory: Nasal cannula oxygen, bilateral crackles. Cardiovascular: Distant heart sounds, normal rate and rhythm. GI/Abdominal: Obesely distended, soft, nontender, no guarding. Extremities: Right BKA, 3+ pitting edema. Neurological: CN II-XII intact, intact motor, intact sensation. Psychiatric: normal mood. Skin: left thigh redness and tenderness consistent with abscess status post I&D PFSH PFSH All Active Problems (Updated 01/30/21 @ 20:52 by Aniya Padilla PA-C) Cellulitis (Acute) CHF exacerbation (Acute) Cellulitis (Acute) Chronic renal disease (Acute) Anasarca (Acute) Abscess (Acute) Mixed dyslipidemia (Acute) Acute kidney injury (Acute) Congestive heart failure (Chronic) SOB (shortness of breath) (Chronic) Diabetes (Chronic) Hypertension (Chronic) Anemia (Chronic) Dermatitis of lower extremity (Chronic) Pedal edema (Chronic) Hypercoagulable state (Chronic) Pleural effusion (Acute) CKD (chronic kidney disease) stage 3, GFR 30-59 ml/min (Chronic) Hyperphosphatemia (Acute) Non compliance with medical treatment (Chronic) Morbid obesity with BMI of 45.0-49.9, adult (Chronic) 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) Weakness (Acute) Pleural effusion due to CHF (congestive heart failure) (Acute) Anemia in chronic kidney disease (CKD) (Acute) Hypoxia (Acute) Hypokalemia (Acute) CHF, acute on chronic (Acute) Community acquired pneumonia (Acute) Heart failure, systolic, with acute decompensation (Acute) CKD stage G3a/A3, GFR 45-59 and albumin creatinine ratio >300 mg/g (Chronic) Volume overload state of heart (Chronic) Chest pain (Acute) CHF (congestive heart failure) (Acute) Pleural effusion (Acute) CKD (chronic kidney disease) (Acute) Diabetes (Acute) Hypocalcemia (Chronic) CKD (chronic kidney disease), stage III (Acute) Vitamin D insufficiency (Acute) Acute on chronic combined systolic (congestive) and diastolic (congestive) heart failure (Acute) Abnormal CXR (chest x-ray) (Acute) CHF (congestive heart failure) (Acute) Hypoxia (Acute) CKD stage G3b/A3, GFR 30-44 and albumin creatinine ratio >300 mg/g (Acute) Acute CHF (congestive heart failure) (Acute) Hematoma (Acute) Medical History (Updated 01/30/21 @ 20:52 by Aniya Padilla PA-C) JERMAN (acute kidney injury) Anemia Ankle fracture Chronic wound of extremity CKD (chronic kidney disease) stage 3, GFR 30-59 ml/min Colon cancer Community acquired pneumonia Congestive heart failure Dermatitis of lower extremity Diabetes Heart failure with acute decompensation, type unknown Hypercoagulable state Hyperphosphatemia Hypertension Localized edema due to fluid overload 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 Warfarin (for hypercoagulable state?) Morbid obesity with BMI of 45.0-49.9, adult Non compliance with medical treatment Osteomyelitis of ankle Pedal edema Pleural effusion s/p thoracentesis 01/2019 Pulmonary edema Pulmonary embolism SOB (shortness of breath) Surgical History History of open reduction and internal fixation (ORIF) procedure Right Arm History of orthopedic surgery Irrigation and debridement 2017 Right Ankle History of partial colectomy History of total replacement of right ankle 11/12/17 Dr Muro Hx of right BKA Family History Mother Bruising Bleeding Clotting disorder Father Prostate cancer Social History leisure activities: other other: swimming alcohol intake frequency: does not drink substance use type: does not use MEDS/ALLERGIES Home Medications and Allergies Home Medications Medication Instructions Recorded Confirmed Type tamsulosin 0.4 mg PO HS 03/08/18 01/30/21 History spironolactone 50 mg tablet 50 mg PO QAM 05/05/19 01/30/21 History bisoprolol fumarate 5 mg PO DAILY 06/15/19 01/30/21 History atorvastatin 10 mg PO QHS 10/24/19 01/30/21 History insulin glargine 100 unit/mL 20 unit SUB-Q HS unit 11/30/19 01/30/21 History subcutaneous solution ferrous sulfate 325 mg (65 mg 325 mg PO BID 02/29/20 01/30/21 History iron) tablet,delayed release sacubitril 24 mg-valsartan 26 mg 1 tab PO HS 09/13/20 01/30/21 History tablet melatonin 20 mg PO QHS PRN 01/22/21 01/30/21 History torsemide 40 mg PO QDAY 01/23/21 01/30/21 History [id number] 1 dose TOPICAL BID #1 ea 01/26/21 01/30/21 Rx [Triple Antibiotic] cephalexin 500 mg PO TID 7 Days #21 cap 01/27/21 01/30/21 Rx Allergies Allergy/AdvReac Type Severity Reaction Status Date / Time No Known Drug Allergies Allergy Verified 01/30/21 13:09 EXAM Constitutional Vitals: Temp Pulse Resp BP Pulse Ox 97.9 F 72 31 H 137/87 99 01/30/21 13:06 01/31/21 12:16 01/31/21 12:46 01/31/21 12:46 01/31/21 12:16 DATA Data Completed and Pending Labs: Labs from last 24 hours 01/31/21 01/31/21 01/30/21 08:00 08:00 22:52 WBC RBC Hgb Hct POC Hct 27 L MCV MCH MCHC RDW Plt Count MPV Neut % (Auto) Lymph % (Auto) [place] % (Auto) Eos % (Auto) Baso % (Auto) Lymph # (Auto) [place] # (Auto) Eos # (Auto) Baso # (Auto) Absolute Neutrophils VBG Lactic Acid POC Sodium 144 Sodium POC Potassium 3.9 Potassium POC Chloride 102 Chloride Carbon Dioxide POC Total CO2 32 H Anion Gap POC BUN 31 H BUN Creatinine POC Creatinine 2.0 H GFR Calculation Glucose POC Glucose 124 H Calcium POC WB Ioniz Calcium 1.07 L Total Bilirubin AST ALT Alkaline Phosphatase Troponin T 0.04 H* 0.04 H* NT-Pro-B Natriuret Pep Total Protein Albumin Globulin Albumin/Globulin Ratio Procalcitonin Urine Color Urine Appearance Urine pH Ur Specific [place] Urine Protein Urine Glucose (UA) Urine Ketones Urine Occult Blood Urine Nitrate Urine Bilirubin Urine Urobilinogen Ur Leukocyte Esterase Urine RBC Urine WBC Ur Squamous Epith Cells Urine Bacteria Hyaline Casts Urine Mucus Ur Culture Indicated? 01/30/21 01/30/21 01/30/21 14:28 14:08 14:08 WBC RBC Hgb Hct POC Hct MCV MCH MCHC RDW Plt Count MPV Neut % (Auto) Lymph % (Auto) [place] % (Auto) Eos % (Auto) Baso % (Auto) Lymph # (Auto) [place] # (Auto) Eos # (Auto) Baso # (Auto) Absolute Neutrophils VBG Lactic Acid POC Sodium Sodium POC Potassium Potassium POC Chloride Chloride Carbon Dioxide POC Total CO2 Anion Gap POC BUN BUN Creatinine POC Creatinine GFR Calculation Glucose POC Glucose Calcium POC WB Ioniz Calcium Total Bilirubin AST ALT Alkaline Phosphatase Troponin T NT-Pro-B Natriuret Pep 82314.0 H Total Protein Albumin Globulin Albumin/Globulin Ratio Procalcitonin 0.25 H Urine Color Yellow Urine Appearance Hazy A Urine pH 5.0 Ur Specific [place] 1.016 Urine Protein 100 A Urine Glucose (UA) 50 A Urine Ketones Negative Urine Occult Blood 0.20 Urine Nitrate Negative Urine Bilirubin Negative Urine Urobilinogen Negative Ur Leukocyte Esterase 75 A Urine RBC > 182 H Urine WBC 18 H Ur Squamous Epith Cells 0 Urine Bacteria None Hyaline Casts 7 H Urine Mucus Few A Ur Culture Indicated? yes 01/30/21 01/30/21 01/30/21 14:08 14:08 14:08 WBC 10.7 RBC 3.80 L Hgb 10.6 L Hct 36.5 L POC Hct 34 L MCV 96.1 MCH 27.9 MCHC 29.0 L RDW 15.5 H Plt Count 175 MPV 10.3 Neut % (Auto) 86.4 H Lymph % (Auto) 5.3 L [place] % (Auto) 6.8 Eos % (Auto) 1.2 Baso % (Auto) 0.3 Lymph # (Auto) 0.57 L [place] # (Auto) 0.73 Eos # (Auto) 0.13 Baso # (Auto) 0.03 Absolute Neutrophils 9.22 H VBG Lactic Acid 1.0 POC Sodium 143 Sodium 141 POC Potassium 3.7 Potassium 3.8 POC Chloride 98 Chloride 101 Carbon Dioxide 28 POC Total CO2 31 H Anion Gap 12.0 POC BUN 33 H BUN 31 H Creatinine 1.9 H POC Creatinine 2.0 H GFR Calculation 36 Glucose 155 H POC Glucose 155 H Calcium 8.4 L POC WB Ioniz Calcium 1.04 L Total Bilirubin 0.3 AST 13 ALT 7 Alkaline Phosphatase 101 Troponin T NT-Pro-B Natriuret Pep Total Protein 6.8 Albumin 2.8 L Globulin 4.0 H Albumin/Globulin Ratio 0.7 L Procalcitonin Urine Color Urine Appearance Urine pH Ur Specific [place] Urine Protein Urine Glucose (UA) Urine Ketones Urine Occult Blood Urine Nitrate Urine Bilirubin Urine Urobilinogen Ur Leukocyte Esterase Urine RBC Urine WBC Ur Squamous Epith Cells Urine Bacteria Hyaline Casts Urine Mucus Ur Culture Indicated? Preliminary micro results at discharge 01/30/21 17:13 Gram Stain - Preliminary Abscess - Left Leg Wound Culture - Preliminary Staphylococcus species 01/30/21 14:28 Urine Culture - Preliminary Urine - Catheterized A/P Narrative A/P Narrative: Assessment: 65 year old male with a history of combined systolic and diastolic heart failure, CKD stage III, type 2 diabetes mellitus, right BKA, obesity who was recently hospitalized at [facility] and discharged on 01/26/2021 after being treated for acute on chronic congestive heart failure now readmitted for acute on chronic heart failure and a left thigh abscess. #Acute on chronic combined systolic and diastolic heart failure -LVEF 20 to 25% -Grade 2 diastolic dysfunction #Left thigh cellulitis and abscess -Status post I&D 01/31/2020 -Culture growing staph #Mildly elevated troponin -secondary to heart failure #CKD stage 3 #Diabetes mellitus type 2 #Obesity #Barney catheter placed during recent hospitalization #History of right BKA #Generalized weakness Plan -Lasix IV 3 times daily for now, follow I&O, daily weights. -Monitor renal function and electrolytes. -Continue home bisoprolol and spironolactone, holding home Entresto and torsemide for now. -ECHO ordered for acute change in status. -Vancomycin per pharmacy. -Follow-up blood and surgical cultures. -Demarcate and follow cellulitis. -Lantus and SSI-med. -Continue home statin and aspirin. -Sodium restriction. -PT and OT consult. -Wound care for abscess. -Remove barney when able. -DVT PPx: Heparin SQ -CODE STATUS: DNR -Disposition: Probably SNF. Time Spent With Patient Time: Total time spent is greater than 50% in coordination of care (as documented) at patient's floor/unit and/or counseling patient:
[2021-01-31] MEDS ORDERED: FUROSEMIDE 40 MG/4 ML VIAL IV SCH (14:00)
[2021-01-31] MEDS ORDERED: VANCOMYCIN 1,500 MG in 0.9 % SODIUM CHLORIDE 500 ML IV ONE (14:00)
[2021-01-31] MEDS ORDERED: DEXTROSE 31 GM ORAL.SUSP PO PRN (17:10)
[2021-01-31] MEDS ORDERED: ACETAMINOPHEN 325 MG TABLET PO PRN (17:10)
[2021-01-31] MEDS ORDERED: DEXTROSE 50% 50 ML VIAL IV PRN (17:10)
[2021-01-31] MEDS ORDERED: ONDANSETRON 4 MG/2 ML VIAL IV PRN (17:10)
[2021-01-31] MEDS ORDERED: VANCOMYCIN PER PHARMACY IV SCH (17:30)
[2021-01-31] MEDS ORDERED: FERROUS SULFATE 325 MG TABLET PO SCH (17:30)
[2021-01-31] MEDS: INSULIN LISPRO 1 UNIT/0.01 ML UNIT SQ SCH ×2 (18:00→21:04)
[2021-01-31] MEDS: 0.9 % SODIUM CHLORIDE 10 ML SYRINGE IV SCH ×2 (18:01→21:11)
[2021-01-31] MEDS ORDERED: ATORVASTATIN 10 MG TABLET PO SCH (21:00)
[2021-01-31] MEDS ORDERED: TAMSULOSIN 0.4 MG CAPSULE PO SCH (21:00)
[2021-01-31] MEDS ORDERED: INSULIN GLARGINE, HUMAN 1 UNIT/0.01 ML SQ SCH (21:00)
[2021-01-31] MEDS: SENNOSIDES 1 TABLET PO SCH (21:02)
[2021-01-31] MEDS: INSULIN GLARGINE, HUMAN 1 UNIT/0.01 ML SQ SCH (21:03)
[2021-01-31] MEDS: ATORVASTATIN 10 MG TABLET PO SCH (21:03)
[2021-01-31] MEDS: HEPARIN 5,000 UNIT/ML VIAL SQ SCH (21:03)
[2021-01-31] MEDS: DOCUSATE SODIUM 100 MG CAPSULE PO SCH (21:03)
[2021-01-31] MEDS: TAMSULOSIN 0.4 MG CAPSULE PO SCH (21:03)
[2021-01-31] MEDS: FUROSEMIDE 40 MG/4 ML VIAL IV SCH (21:10)
[2021-02-01] MEDS: 0.9 % SODIUM CHLORIDE 10 ML SYRINGE IV SCH ×3 (05:30→22:17)
[2021-02-01] MEDS: FUROSEMIDE 40 MG/4 ML VIAL IV SCH ×3 (05:30→22:17)
[2021-02-01 07:46] LABS: ALT/SGPT 6 U/L (<40); AST/SGOT 11 U/L (<40); Albumin 2.3 gm/dL (3.2-5.2); Albumin/Globulin Ratio 0.7 (1.0-2.3); Alkaline Phosphatase 79 U/L (39-117); Bilirubin,Direct < 0.2 mg/dL (0-0.3); Bilirubin,Total < 0.2 mg/dL (0.1-1.0); Blood Urea Nitrogen 28 mg/dL (8-23); Calcium 7.6 mg/dL (8.6-10.4); Carbon Dioxide 31 mmol/L (22-30); Chloride 104 mmol/L (96-108); Globulin 3.5 gm/dL (2.2-3.7); Glomerular Filtration Rate 38; Glucose 111 mg/dL (70-105); Lactate Dehydrogenase 162 U/L (135-225); Phosphorous 3.2 mg/dL (2.5-4.5); Triglycerides 70 mg/dL (<150); Uric Acid 10.6 mg/dL (2.5-8.0)
[2021-02-01] MEDS: INSULIN LISPRO 1 UNIT/0.01 ML UNIT SQ SCH ×4 (08:00→20:42)
[2021-02-01] MEDS: HEPARIN 5,000 UNIT/ML VIAL SQ SCH ×2 (08:05→20:41)
[2021-02-01] MEDS: BISOPROLOL 5 MG TABLET PO SCH (08:06)
[2021-02-01] MEDS: DOCUSATE SODIUM 100 MG CAPSULE PO SCH ×2 (08:06→20:41)
[2021-02-01] MEDS: ASPIRIN 325 MG ENTERIC COATED TABLET PO SCH (08:06)
[2021-02-01] MEDS: SPIRONOLACTONE 25 MG TABLET PO SCH (08:13)
[2021-02-01] MEDS: VANCOMYCIN 1,500 MG in 0.9 % SODIUM CHLORIDE 500 ML IV SCH (08:49)
[2021-02-01] MEDS ORDERED: SPIRONOLACTONE 25 MG TABLET PO SCH (09:00)
[2021-02-01] MEDS ORDERED: BISOPROLOL 5 MG TABLET PO SCH (09:00)
[2021-02-01 09:08] LABS: Hematocrit 33.6 % (40.1-51.0); Hemoglobin 9.4 g/dL (13.7-17.5); Mean Cell Volume 99.4 fL (80.0-100.0); Platelet Count 157 K/mcL (140-440); RBC 3.38 M/mcL (4.63-6.08); Red Cell Distribution Width 15.5 % (11.5-14.5); WBC 7.3 K/mcL (4.5-11.0)
[2021-02-01 09:52] LABS: Anisocytosis FEW (None Seen); Band Neutrophils % 1 % (0-10); Eosinophils % (Manual) 1 % (0-7); Lymphocytes % 11 % (15-49); Monocytes % (Manual) 1 % (1-12); Myelocytes % 1 %; Platelet Estimate NORMAL (Normal); RBC Morphology ABNORMAL (Normal); Segmented Neutrophils % 85 % (38-78)
--- NOTE | 2021-02-01 14:20 | General Surgery Consult Note ---
HPI Data of Consult Consult date: 02/01/21 Requesting physician: Yeyo Murillo Primary Care Provider: Ariana Dai Consult Narrative Patient Information: Note initiated : 02/01/21 at 2:00 pm Service Date, if different from initiated Date: [] Patient: Florencio Grace 65 y/o M admitted on 01/31/21 for Leg pain. Chief Complaint: [] Reason for consult: Wound Care: Open wound LEFT anterior upper thigh cc:: CC: Yeyo Murillo MD I examined this patient in room 129 along with Gómez Henry RN, In patient wo und care and with Patrick RN I reviewed EHR H/P, Diagnostic work up and tissue / fluid c/s results from LEFT upper thigh fluid collection site. Constitutional Constitutional: Present as per HPI and other (H/O SOB, falls and LEFT upper anterior thigh fluid collection. S/P I/D in ER yesterday with open packing ) Cardiovascular Cardiovascular: Present edema, orthopnea, pedal edema and other (CHF (Systolic and Diastolic ) ) Additional comments: Patient was treated and discharged home less than a week ago. Readmitted again last evening with SOB, hypoxia and anasarca with LEFT upper thigh inflammation of skin and subcutaneous region Respiratory Additional comments: SOB . On Oxygen by [place] Integumentary Integumentary: Present wounds (Open wound LEFT upper anterior mid thigh. S/P I/D in ER yesterday with open packing. ) Hematologic/Lymphatic Hematologic/Lymphatic: Present other Additional comments: Anasarca, Lymphedem of lower abdomen, LLE. He has Right BKA. PFSH PFSH All Active Problems Cellulitis (Acute) CHF exacerbation (Acute) Cellulitis (Acute) Chronic renal disease (Acute) Anasarca (Acute) Abscess (Acute) Mixed dyslipidemia (Acute) Acute kidney injury (Acute) Congestive heart failure (Chronic) SOB (shortness of breath) (Chronic) Diabetes (Chronic) Hypertension (Chronic) Anemia (Chronic) Dermatitis of lower extremity (Chronic) Pedal edema (Chronic) Hypercoagulable state (Chronic) Pleural effusion (Acute) CKD (chronic kidney disease) stage 3, GFR 30-59 ml/min (Chronic) Hyperphosphatemia (Acute) Non compliance with medical treatment (Chronic) Morbid obesity with BMI of 45.0-49.9, adult (Chronic) penitentiary (current) use of 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 (Chronic) Weakness (Acute) Pleural effusion due to CHF (congestive heart failure) (Acute) Anemia in chronic kidney disease (CKD) (Acute) Hypoxia (Acute) Hypokalemia (Acute) CHF, acute on chronic (Acute) Community acquired pneumonia (Acute) Heart failure, systolic, with acute decompensation (Acute) CKD stage G3a/A3, GFR 45-59 and albumin creatinine ratio >300 mg/g (Chronic) Volume overload state of heart (Chronic) Chest pain (Acute) CHF (congestive heart failure) (Acute) Pleural effusion (Acute) CKD (chronic kidney disease) (Acute) Diabetes (Acute) Hypocalcemia (Chronic) CKD (chronic kidney disease), stage III (Acute) Vitamin D insufficiency (Acute) Acute on chronic combined systolic (congestive) and diastolic (congestive) heart failure (Acute) Abnormal CXR (chest x-ray) (Acute) CHF (congestive heart failure) (Acute) Hypoxia (Acute) CKD stage G3b/A3, GFR 30-44 and albumin creatinine ratio >300 mg/g (Acute) Acute CHF (congestive heart failure) (Acute) Hematoma (Acute) Medical History JERMAN (acute kidney injury) Anemia Ankle fracture Chronic wound of extremity CKD (chronic kidney disease) stage 3, GFR 30-59 ml/min Colon cancer Community acquired pneumonia Congestive heart failure Dermatitis of lower extremity Diabetes Heart failure with acute decompensation, type unknown Hypercoagulable state Hyperphosphatemia Hypertension Localized edema due to fluid overload penitentiary (current) use of 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 Warfarin (for hypercoagulable state?) Morbid obesity with BMI of 45.0-49.9, adult Non compliance with medical treatment Osteomyelitis of ankle Pedal edema Pleural effusion s/p thoracentesis 01/2019 Pulmonary edema Pulmonary embolism SOB (shortness of breath) Surgical History History of open reduction and internal fixation (ORIF) procedure Right Arm History of orthopedic surgery Irrigation and debridement 2017 Right Ankle History of partial colectomy History of total replacement of right ankle 11/12/17 Dr Muro Hx of right BKA Family History Mother Bruising Bleeding Clotting disorder Father Prostate cancer Social History leisure activities: other other: swimming alcohol intake frequency: does not drink substance use type: does not use MEDS/ALLERGIES Home Medications and Allergies Home Medications Medication Instructions Recorded Confirmed Type tamsulosin 0.4 mg PO HS 03/08/18 01/30/21 History spironolactone 50 mg tablet 50 mg PO QAM 05/05/19 01/30/21 History bisoprolol fumarate 5 mg PO DAILY 06/15/19 01/30/21 History atorvastatin 10 mg PO QHS 10/24/19 01/30/21 History insulin glargine 100 unit/mL 20 unit SUB-Q HS unit 11/30/19 01/30/21 History subcutaneous solution ferrous sulfate 325 mg (65 mg 325 mg PO BID 02/29/20 01/30/21 History iron) tablet,delayed release sacubitril 24 mg-valsartan 26 mg 1 tab PO HS 09/13/20 01/30/21 History tablet melatonin 20 mg PO QHS PRN 01/22/21 01/30/21 History torsemide 40 mg PO QDAY 01/23/21 01/30/21 History [id number] 1 dose TOPICAL BID #1 ea 01/26/21 01/30/21 Rx [Triple Antibiotic] cephalexin 500 mg PO TID 7 Days #21 cap 01/27/21 01/30/21 Rx Allergies Allergy/AdvReac Type Severity Reaction Status Date / Time No Known Drug Allergies Allergy Verified 01/30/21 13:09 Physical Examination Vital Signs Vital signs: Temp Pulse Resp BP Pulse Ox 97.8 F 89 20 116/70 94 02/01/21 08:00 02/01/21 08:00 02/01/21 08:00 02/01/21 08:00 02/01/21 08:00 General physical appearance General physical exam: obese (Supermorbidly obese. Orthopneic and on supplemental O2 NC) Eyes Eye exam: PERRL and normal ocular movement ENT ENT exam: normal pinna, normal nares, normal mucosa and other (congested. On Supplemental O2 NC ) Head Head exam IM: Present atraumatic and normocephalic Neck Neck exam: no masses and no venous distension Cardiovascular Cardiovascular exam IM: Present irregular rhythm Respiratory Respiratory exam: other (SOB at rest. On O2 by NC) Abdomen Abdomen: Present soft and non tender Genitourinary Genitourinary (Male): Present other (Mayo catheter draning clear urine) Integumentary Integumentary: Present other (LEFT anterior upper / mid thigh: OPEN wound with circumferential undermining for 3-4 CM. This was packed open last evening. Resolving inflammatory changes. Fluid c/s Staph aureus. ) Neurologic Neurologic: Present other (NON focal neurological examination. ) Musculoskeletal Musculoskeletal: Present other (Right BKA. Has prosthesis.) Psychiatric Psychiatric: Present oriented to time, oriented to person, oriented to place and speech is normal Additional Findings Additional exam: Resolving cellulitis / Dermatitis LEFT anterior upper thigh. S/P Drainage of subcutaneous lymphatic fluid collection in ER yesterday. Results Labs Result diagrams: 02/02/21 06:44 02/02/21 06:44 Labs: Abnormal lab results 02/01/21 02/01/21 Range/Units 05:24 07:56 RBC 3.38 L (4.63-6.08) M/mcL Hgb 9.4 L (13.7-17.5) g/dL Hct 33.6 L (40.1-51.0) % MCHC 28.0 L (31.0-36.0) g/dL RDW 15.5 H (11.5-14.5) % Seg Neutrophils % 85 H (38-78) % Lymphocytes % 11 L (15-49) % RBC Morphology Abnormal A (Normal) Anisocytosis Few A (None Seen) Carbon Dioxide 31 H (22-30) mmol/L Anion Gap 7.0 L (8.0-16.0) BUN 28 H (8-23) mg/dL Creatinine 1.8 H (0.7-1.2) mg/dL Glucose 111 H (70-105) mg/dL Uric Acid 10.6 H (2.5-8.0) mg/dL Calcium 7.6 L (8.6-10.4) mg/dL Total Protein 5.8 L (5.9-8.4) gm/dL Albumin 2.3 L (3.2-5.2) gm/dL Albumin/Globulin Ratio 0.7 L (1.0-2.3) Diabetes panel 02/01/21 Range/Units 05:24 Sodium 142 (133-145) mmol/L Potassium 4.2 (3.3-5.1) mmol/L Chloride 104 (96-108) mmol/L Carbon Dioxide 31 H (22-30) mmol/L BUN 28 H (8-23) mg/dL Creatinine 1.8 H (0.7-1.2) mg/dL Glucose 111 H (70-105) mg/dL Calcium 7.6 L (8.6-10.4) mg/dL AST 11 (<40) U/L ALT 6 (<40) U/L Alkaline Phosphatase 79 (39-117) U/L Total Protein 5.8 L (5.9-8.4) gm/dL Albumin 2.3 L (3.2-5.2) gm/dL Triglycerides 70 (<150) mg/dL Calcium panel 02/01/21 Range/Units 05:24 Calcium 7.6 L (8.6-10.4) mg/dL Phosphorus 3.2 (2.5-4.5) mg/dL Albumin 2.3 L (3.2-5.2) gm/dL Pituitary panel 02/01/21 Range/Units 05:24 Sodium 142 (133-145) mmol/L Potassium 4.2 (3.3-5.1) mmol/L Chloride 104 (96-108) mmol/L Carbon Dioxide 31 H (22-30) mmol/L BUN 28 H (8-23) mg/dL Creatinine 1.8 H (0.7-1.2) mg/dL Glucose 111 H (70-105) mg/dL Calcium 7.6 L (8.6-10.4) mg/dL Adrenal panel 02/01/21 Range/Units 05:24 Sodium 142 (133-145) mmol/L Potassium 4.2 (3.3-5.1) mmol/L Chloride 104 (96-108) mmol/L Carbon Dioxide 31 H (22-30) mmol/L BUN 28 H (8-23) mg/dL Creatinine 1.8 H (0.7-1.2) mg/dL Glucose 111 H (70-105) mg/dL Calcium 7.6 L (8.6-10.4) mg/dL Total Bilirubin < 0.2 (0.1-1.0) mg/dL AST 11 (<40) U/L ALT 6 (<40) U/L Alkaline Phosphatase 79 (39-117) U/L Total Protein 5.8 L (5.9-8.4) gm/dL Albumin 2.3 L (3.2-5.2) gm/dL All other labs normal. A/P Narrative A/P Narrative: assessment: Open wound LEFT anterior upper thigh. ( S/P i/D of subcutaneous fluid collection yesterday ) Comorbidities: CHF, CKD3, DM, Right BKA On IV antibiotics and diuretics for CHF Wound examined. Wound care d/w nursing staff. Plan: See wound care orders. Will follow this patient during his hospitalization. Further recommendations as condition evolves. Time Spent With Patient Time: Total time spent is greater than 50% in coordination of care (as documented) at patient's floor/unit and/or counseling patient: Total time spent with greater than 50% in coordination of care (as documented) at patient's floor/unit and/or counseling patient:: 25 - 35 minutes
--- NOTE | 2021-02-01 17:14 | Internal Med Progress Note ---
SUBJECTIVE Subjective Patient information: Note initiated : 02/01/21 at 5:11 pm Service Date, if different from initiated Date: [] Patient: Florencio Grace 65 y/o M admitted on 01/31/21 for Leg pain. Chief Complaint: [] Interval history: Mr. Grace is a 65 year old male with a history of combined systolic and diastolic heart failure, CKD stage III, type 2 diabetes mellitus, right BKA, obesity who was recently hospitalized for cute on chronic heart failure. The patient was recommended to do rehab in long-term facility however decided to go home instead. The patient did poorly at home, developed left thigh redness and swelling and return to the ED with abscess and cellulitis of the left thigh and acute on chronic heart failure. Hospital medicine was asked to admit the patient however recommended transferring the patient to a higher level of care. Multiple attempts were made to transfer the patient however no beds were available therefore hospital medicine admitted the patient to [facility]. In the ED, the patient had an I&D of the left thigh abscess with cultures taken. Patient was started on vancomycin IV and diuretics for acute on chronic heart failure. Patient is requiring 2 L/min oxygen via nasal cannula in the ED. Per the records, the patient was discharged on oxygen recent hospitalization however had not required oxygen supplementation prior to that hospitalization. 02/01: No major events overnight, renal function slightly improved, increased lasix to 80 mg IV TID, monitoring diuresis and renal function, Dr. Stephens following for left thigh wound, TTE results pending. Physical exam General: 65-year-old chronically appearing male in no apparent distress Head: Atraumatic, normal inspection. Eyes: normal appearance, no scleral icterus. Neck: full ROM Respiratory: Nasal cannula oxygen, bilateral crackles. Cardiovascular: Distant heart sounds, normal rate and rhythm. GI/Abdominal: Obesely distended, soft, nontender, no guarding. Extremities: Right BKA, 3+ pitting edema. Neurological: CN II-XII intact, intact motor, intact sensation. Psychiatric: normal mood. Skin: left thigh redness and tenderness consistent with abscess status post I&D Constitutional Vitals: Vital Signs Temp Pulse Resp BP Pulse Ox 98.2 F 72 20 142/75 92 02/01/21 12:00 02/01/21 12:00 02/01/21 12:00 02/01/21 12:00 02/01/21 12:00 Period Temp Pulse Resp BP Sys/Bush Pulse Ox Last 24 Hr 97.8 F-98.5 F 72-90 20-24 116-144/62-76 92-94 Intake and Output 02/01/21 02/01/21 02/01/21 05:59 13:59 21:59 Intake Total 100 480 Output Total 900 Balance -800 480 Weight 149.856 kg Patient Weight 02/02/21 05:59 Weight 149.856 kg Intake & Output: Intake & Output 02/01/21 02/01/21 02/01/21 05:59 13:59 21:59 Intake Total 100 480 Output Total 900 Balance -800 480 Weight 149.856 kg Intake: Oral 100 480 Output: Urine Catheter Amount 900 Other: Meal 1 luciana peaches Breakfast Percent of Meal Consumed 100% 100% Feeding Ability Independent Independent Urine Appearance Clear Uretheral (Barney) Clear Urine Color Bright Yellow Uretheral (Barney) Bright Yellow OBJ DATA Labs CBC & Chem 7: 02/01/21 07:56 02/01/21 05:24 Labs: Abnormal Lab Results 02/01/21 02/01/21 01/31/21 07:56 05:24 08:00 RBC 3.38 L Hgb 9.4 L Hct 33.6 L POC Hct 27 L MCHC 28.0 L RDW 15.5 H Neut % (Auto) Lymph % (Auto) Lymph # (Auto) Seg Neutrophils % 85 H Lymphocytes % 11 L Absolute Neutrophils RBC Morphology Abnormal A Anisocytosis Few A Carbon Dioxide 31 H POC Total CO2 32 H Anion Gap 7.0 L POC BUN 31 H BUN 28 H Creatinine 1.8 H POC Creatinine 2.0 H Glucose 111 H POC Glucose 124 H Uric Acid 10.6 H Calcium 7.6 L POC WB Ioniz Calcium 1.07 L Troponin T NT-Pro-B Natriuret Pep Total Protein 5.8 L Albumin 2.3 L Globulin Albumin/Globulin Ratio 0.7 L Procalcitonin Urine Appearance Urine Protein Urine Glucose (UA) Ur Leukocyte Esterase Urine RBC Urine WBC Hyaline Casts Urine Mucus 01/31/21 01/30/21 01/30/21 08:00 22:52 14:28 RBC Hgb Hct POC Hct MCHC RDW Neut % (Auto) Lymph % (Auto) Lymph # (Auto) Seg Neutrophils % Lymphocytes % Absolute Neutrophils RBC Morphology Anisocytosis Carbon Dioxide POC Total CO2 Anion Gap POC BUN BUN Creatinine POC Creatinine Glucose POC Glucose Uric Acid Calcium POC WB Ioniz Calcium Troponin T 0.04 H* 0.04 H* NT-Pro-B Natriuret Pep Total Protein Albumin Globulin Albumin/Globulin Ratio Procalcitonin Urine Appearance Hazy A Urine Protein 100 A Urine Glucose (UA) 50 A Ur Leukocyte Esterase 75 A Urine RBC > 182 H Urine WBC 18 H Hyaline Casts 7 H Urine Mucus Few A 01/30/21 01/30/21 01/30/21 14:08 14:08 14:08 RBC Hgb Hct POC Hct 34 L MCHC RDW Neut % (Auto) Lymph % (Auto) Lymph # (Auto) Seg Neutrophils % Lymphocytes % Absolute Neutrophils RBC Morphology Anisocytosis Carbon Dioxide POC Total CO2 31 H Anion Gap POC BUN 33 H BUN 31 H Creatinine 1.9 H POC Creatinine 2.0 H Glucose 155 H POC Glucose 155 H Uric Acid Calcium 8.4 L POC WB Ioniz Calcium 1.04 L Troponin T NT-Pro-B Natriuret Pep 76151.0 H Total Protein Albumin 2.8 L Globulin 4.0 H Albumin/Globulin Ratio 0.7 L Procalcitonin 0.25 H Urine Appearance Urine Protein Urine Glucose (UA) Ur Leukocyte Esterase Urine RBC Urine WBC Hyaline Casts Urine Mucus 01/30/21 14:08 RBC 3.80 L Hgb 10.6 L Hct 36.5 L POC Hct MCHC 29.0 L RDW 15.5 H Neut % (Auto) 86.4 H Lymph % (Auto) 5.3 L Lymph # (Auto) 0.57 L Seg Neutrophils % Lymphocytes % Absolute Neutrophils 9.22 H RBC Morphology Anisocytosis Carbon Dioxide POC Total CO2 Anion Gap POC BUN BUN Creatinine POC Creatinine Glucose POC Glucose Uric Acid Calcium POC WB Ioniz Calcium Troponin T NT-Pro-B Natriuret Pep Total Protein Albumin Globulin Albumin/Globulin Ratio Procalcitonin Urine Appearance Urine Protein Urine Glucose (UA) Ur Leukocyte Esterase Urine RBC Urine WBC Hyaline Casts Urine Mucus Meds: Medications Acetaminophen (Acetaminophen 325 Mg Tablet) 650 mg PO Q6HP PRN; Protocol PRN Reason: Per Pain Protocol/Fever > 101 Aspirin (Aspirin 325 Mg Enteric Coated Tablet) 325 mg PO DAILY [facility] Last Admin: 02/01/21 08:06 Dose: 325 mg Documented by: Atorvastatin Calcium (Atorvastatin 10 Mg Tablet) 10 mg PO QHS [facility] Last Admin: 01/31/21 21:03 Dose: 10 mg Documented by: Bisoprolol Fumarate (Bisoprolol 5 Mg Tablet) 5 mg PO DAILY [facility] Last Admin: 02/01/21 08:06 Dose: 5 mg Documented by: Dextrose (Dextrose 50% 50 Ml Vial) 0 ml IV UD PRN PRN Reason: Hypoglycemia Diagnostic Test (Pha) (Accu-Chek 1 Each Strip) 1 each FS [facility] Last Admin: 02/01/21 12:12 Dose: 1 each Documented by: Docusate Sodium (Docusate Sodium 100 Mg Capsule) 100 mg PO BID [facility] Last Admin: 02/01/21 08:06 Dose: 100 mg Documented by: Furosemide (Furosemide 40 Mg/4 Ml Vial) 80 mg IV Q8 [facility] Last Admin: 02/01/21 15:36 Dose: 80 mg Documented by: Glucose (Dextrose 31 Gm Oral.Susp) 15 gm PO PRN PRN PRN Reason: Hypoglycemia Heparin Sodium (Porcine) (Heparin 5,000 Unit/Ml Vial) 5,000 unit SQ Q12 [facility] Last Admin: 02/01/21 08:05 Dose: 5,000 unit Documented by: Vancomycin HCl 1,500 mg/ (Sodium Chloride) 500 mls @ 333.3 mls/hr IV DAILY [facility] Last Admin: 02/01/21 08:49 Dose: 333.3 mls/hr Documented by: Insulin Glargine (Insulin Glargine, Human 1 Unit/0.01 Ml) 20 unit SQ [facility] Last Admin: 01/31/21 21:03 Dose: 20 units Documented by: Insulin Human Lispro (Insulin Lispro 1 Unit/0.01 Ml Unit) 0 unit SQ [facility]; Protocol Last Admin: 02/01/21 12:12 Dose: 4 units Documented by: Melatonin (Melatonin 3 Mg Tablet) 18 mg PO HSP PRN PRN Reason: Insomnia Ondansetron HCl (Ondansetron 4 Mg/2 Ml Vial) 4 mg IV Q6HP PRN PRN Reason: Nausea And Vomiting Senna (Sennosides 1 Tablet) 2 tab PO [facility] Last Admin: 01/31/21 21:02 Dose: Not Given Documented by: Sodium Chloride (0.9 % Sodium Chloride 10 Ml Syringe) 10 ml IV Q8 [facility] Last Admin: 02/01/21 15:37 Dose: 10 ml Documented by: Spironolactone (Spironolactone 25 Mg Tablet) 50 mg PO DAILY [facility] Last Admin: 02/01/21 08:13 Dose: 50 mg Documented by: Tamsulosin HCl (Tamsulosin 0.4 Mg Capsule) 0.4 mg PO HS [facility] Last Admin: 01/31/21 21:03 Dose: 0.4 mg Documented by: Vancomycin HCl (Vancomycin Per Pharmacy) 1 order IV UD [facility]; Protocol A/P Narrative A/P Narrative: Assessment: 65 year old male with a history of combined systolic and diastolic heart failure, CKD stage III, type 2 diabetes mellitus, right BKA, obesity who was recently hospitalized at [facility] and discharged on 01/26/2021 after being treated for acute on chronic congestive heart failure now readmitted for acute on chronic heart failure and a left thigh abscess. #Acute on chronic combined systolic and diastolic heart failure -LVEF 20 to 25% -Grade 2 diastolic dysfunction #Left thigh cellulitis and abscess -Status post I&D 01/31/2020 -Culture growing staph #Mildly elevated troponin -secondary to heart failure #CKD stage 3 #Diabetes mellitus type 2 #Obesity #Barney catheter placed during recent hospitalization #History of right BKA #Generalized weakness Plan -Lasix 80mg IV 3 times daily for now, follow I&O, daily weights. -Monitor renal function and electrolytes. -Continue home bisoprolol and spironolactone, holding home Entresto and torsemide for now. -ECHO results pending. -Vancomycin per pharmacy. -Follow-up blood and surgical cultures. -Demarcate and follow cellulitis. -Lantus and SSI-med. -Continue home statin and aspirin. -Sodium restriction. -PT and OT consult. -Wound care for abscess. -Remove barney when able. -DVT PPx: Heparin SQ -CODE STATUS: DNR -Disposition: Probably SNF. Time Spent With Patient Time: Total time spent is greater than 50% in coordination of care (as documented) at patient's floor/unit and/or counseling patient: QUALITY VTE Deep Vein Thrombosis/Pulmonary Embolism Present on Admission: No
[2021-02-01] MEDS: SENNOSIDES 1 TABLET PO SCH (20:41)
[2021-02-01] MEDS: INSULIN GLARGINE, HUMAN 1 UNIT/0.01 ML SQ SCH (20:42)
[2021-02-01] MEDS: TAMSULOSIN 0.4 MG CAPSULE PO SCH (20:42)
[2021-02-01] MEDS: ATORVASTATIN 10 MG TABLET PO SCH (20:42)
[2021-02-01] MEDS: MELATONIN 3 MG TABLET PO PRN (22:17)
[2021-02-02] MEDS: 0.9 % SODIUM CHLORIDE 10 ML SYRINGE IV SCH ×3 (06:00→21:59)
[2021-02-02] MEDS: FUROSEMIDE 40 MG/4 ML VIAL IV SCH ×3 (06:00→21:59)
[2021-02-02] MEDS: INSULIN LISPRO 1 UNIT/0.01 ML UNIT SQ SCH ×4 (07:30→20:47)
[2021-02-02 08:22] LABS: Hematocrit 34.4 % (40.1-51.0); Hemoglobin 9.4 g/dL (13.7-17.5); Mean Cell Volume 103.6 fL (80.0-100.0); Mean Corpuscular HGB Conc 27.3 g/dL (31.0-36.0); Mean Platelet Volume 9.4 fL (7.4-10.4); Platelet Count 154 K/mcL (140-440); RBC 3.32 M/mcL (4.63-6.08); Red Cell Distribution Width 15.5 % (11.5-14.5); WBC 6.5 K/mcL (4.5-11.0)
[2021-02-02 09:03] LABS: ALT/SGPT 6 U/L (<40); AST/SGOT 12 U/L (<40); Albumin 2.2 gm/dL (3.2-5.2); Albumin/Globulin Ratio 0.6 (1.0-2.3); Alkaline Phosphatase 80 U/L (39-117); Bilirubin,Direct < 0.2 mg/dL (0-0.3); Bilirubin,Total 0.2 mg/dL (0.1-1.0); Blood Urea Nitrogen 29 mg/dL (8-23); Carbon Dioxide 30 mmol/L (22-30); Chloride 105 mmol/L (96-108); Globulin 3.7 gm/dL (2.2-3.7); Glomerular Filtration Rate 36; Glucose 68 mg/dL (70-105); Lactate Dehydrogenase 178 U/L (135-225); Phosphorous 3.4 mg/dL (2.5-4.5); Triglycerides 63 mg/dL (<150); Uric Acid 11.3 mg/dL (2.5-8.0)
[2021-02-02] MEDS: ASPIRIN 325 MG ENTERIC COATED TABLET PO SCH (10:07)
[2021-02-02] MEDS: VANCOMYCIN 1,500 MG in 0.9 % SODIUM CHLORIDE 500 ML IV SCH (10:07)
[2021-02-02] MEDS: BISOPROLOL 5 MG TABLET PO SCH (10:07)
[2021-02-02] MEDS: HEPARIN 5,000 UNIT/ML VIAL SQ SCH ×2 (10:07→20:47)
[2021-02-02] MEDS: DOCUSATE SODIUM 100 MG CAPSULE PO SCH ×2 (10:07→20:47)
[2021-02-02] MEDS: SPIRONOLACTONE 25 MG TABLET PO SCH (10:07)
--- NOTE | 2021-02-02 10:26 | EKG ---
[facility] Test Date: 2021-01-30 Pat Name: Florencio Grace Department: ED Room: Gender: Male Title Clerk: se : 1955 Requested By: Aniya Padilla Order Number: [id number] Reading MD: Robinson Inman Measurements Intervals [place] Rate: 99 P: 13 AK: 210 QRS: -53 QRSD: 123 T: 94 QT: 385 QTc: 495 Interpretive Statements Atrial fibrillation with aberrancy vs PVC IVCD Electronically Signed On 02-02-2021 10:26:00 PDT by Robinson Inman /store/M0/[id number]
[2021-02-02 10:37] LABS: Anisocytosis 2+ (None Seen); Eosinophils % (Manual) 3 % (0-7); Hypochromasia 3+ (None Seen); Lymphocytes % 11 % (15-49); Macrocytosis 1+ (None Seen); Monocytes % (Manual) 4 % (1-12); Platelet Estimate NORMAL (Normal); RBC Morphology ABNORMAL (Normal); Reactive Lymphocytes 2 % (0-2); Segmented Neutrophils % 80 % (38-78)
--- NOTE | 2021-02-02 12:46 | General Surgery Progress Note ---
SUBJECTIVE Subjective Patient information: Note initiated : 02/02/21 at 12:42 pm Service Date, if different from initiated Date: [] Patient: Florencio Grace 65 y/o M admitted on 01/31/21 for Leg pain. Chief Complaint: [] Additional PMFSH (Level 3 Only): Patient seen with Norm RN IC. Resting comfortably. Just finished his lunch. He had an uneventful night. Constitutional Vitals: Vital Signs Temp Pulse Resp BP Pulse Ox 97.9 F 70 22 134/64 92 02/02/21 11:32 02/02/21 11:32 02/02/21 11:32 02/02/21 11:32 02/02/21 11:32 Period Temp Pulse Resp BP Sys/Bush Pulse Ox Last 24 Hr 96.9 F-97.9 F 66-78 20-24 117-152/59-72 92-99 Intake and Output 02/01/21 02/02/21 02/02/21 21:59 05:59 13:59 Intake Total 1300 220 Output Total 600 475 Balance 700 -255 Weight 326 lb 8 oz Intake & Output: Intake & Output 02/01/21 02/02/21 02/02/21 21:59 05:59 13:59 Intake Total 1300 220 Output Total 600 475 Balance 700 -255 Weight 326 lb 8 oz Intake: Oral 1300 220 Output: Urine Catheter Amount 600 475 Other: Meal Grahm crackers x 2pk Percent of Meal Consumed 100% Feeding Ability Independent Urine Appearance Clear Uretheral (Mayo) Clear Clear Urine Color Dark Yellow Bright Yellow Uretheral (Mayo) Bright Yellow Pale Urine Odor Strong Uretheral (Mayo) Normal Stool Size Large Stool Color Brown Stool Consistency Soft Formed # Bowel Movements 1 Exam: AVSS. No changes DIAMOND. LEFT upper thigh region. Wound examined. Decreasing serous drainage. Resolving inflammatory changes. Aquacel Ag Packing in situ with Mepitel onlay. Reviewed labs. A/P Narrative A/P Narrative: Assessment: Satisfactory progress / wound care Plan: Continue current management. Time Spent With Patient Time: Total time spent is greater than 50% in coordination of care (as documented) at patient's floor/unit and/or counseling patient: Total time spent with greater than 50% in coordination of care (as documented) at patient's floor/unit and/or counseling patient:: 15 - 24 minutes
--- NOTE | 2021-02-02 15:35 | Internal Med Progress Note ---
SUBJECTIVE Subjective Patient information: Note initiated : 02/02/21 at 3:32 pm Service Date, if different from initiated Date: [] Patient: Florencio Grace 65 y/o M admitted on 01/31/21 for Leg pain. Chief Complaint: [] Interval history: Mr. Grace is a 65 year old male with a history of combined systolic and diastolic heart failure, CKD stage III, type 2 diabetes mellitus, right BKA, obesity who was recently hospitalized for cute on chronic heart failure. The patient was recommended to do rehab in [facility] facility however decided to go home instead. The patient did poorly at home, developed left thigh redness and swelling and return to the ED with abscess and cellulitis of the left thigh and acute on chronic heart failure. Hospital medicine was asked to admit the patient however recommended transferring the patient to a higher level of care. Multiple attempts were made to transfer the patient however no beds were available therefore hospital medicine admitted the patient to [facility]. In the ED, the patient had an I&D of the left thigh abscess with cultures taken. Patient was started on vancomycin IV and diuretics for acute on chronic heart failure. Patient is requiring 2 L/min oxygen via nasal cannula in the ED. Per the records, the patient was discharged on oxygen recent hospitalization however had not required oxygen supplementation prior to that hospitalization. 02/01: No major events overnight, renal function slightly improved, increased lasix to 80 mg IV TID, monitoring diuresis and renal function, Dr. Stephens following for left thigh wound, TTE results pending. 02/02: No major events overnight, diuresing well, abscess cultures grew MSSA, discontinued Vancomycin IV and started Cefazolin. Physical exam General: 65-year-old chronically appearing male in no apparent distress Head: Atraumatic, normal inspection. Eyes: normal appearance, no scleral icterus. Neck: full ROM Respiratory: Nasal cannula oxygen, bilateral crackles. Cardiovascular: Distant heart sounds, normal rate and rhythm. GI/Abdominal: Obesely distended, soft, nontender, no guarding. Extremities: Right BKA, 3+ pitting edema. Neurological: CN II-XII intact, intact motor, intact sensation. Psychiatric: normal mood. Skin: left thigh redness and tenderness consistent with abscess status post I&D Constitutional Vitals: Vital Signs Temp Pulse Resp BP Pulse Ox 97.9 F 70 22 134/64 92 02/02/21 11:32 02/02/21 11:32 02/02/21 11:32 02/02/21 11:32 02/02/21 11:32 Period Temp Pulse Resp BP Sys/Bush Pulse Ox Last 24 Hr 96.9 F-97.9 F 66-78 20-24 117-152/59-72 92-99 Intake and Output 02/02/21 02/02/21 02/02/21 05:59 13:59 21:59 Intake Total 220 980 Output Total 475 Balance -255 980 Intake & Output: Intake & Output 02/02/21 02/02/21 02/02/21 05:59 13:59 21:59 Intake Total 220 980 Output Total 475 Balance -255 980 Intake: IV 500 Vancomycin 1,500 mg In Sodium 500 Chloride 0.9% 500 ml @ 333.3 mls/hr IV DAILY [facility] Rx#: [id number] Oral 220 480 Output: Urine Catheter Amount 475 Other: Meal Grahm crackers x 2pk Lunch Percent of Meal Consumed 100% 100% Feeding Ability Independent Independent Urine Appearance Clear Uretheral (Barney) Clear Urine Color Bright Yellow Uretheral (Barney) Pale Urine Odor Uretheral (Barney) Normal Stool Size Large Copious Stool Color Brown Brown Stool Consistency Soft Soft Formed # Bowel Movements 1 1 # of times incontinent of 1 Bowels OBJ DATA Labs CBC & Chem 7: 02/02/21 06:44 02/02/21 06:44 Labs: Abnormal Lab Results 02/02/21 02/02/21 02/01/21 06:44 06:44 07:56 RBC 3.32 L 3.38 L Hgb 9.4 L 9.4 L Hct 34.4 L 33.6 L POC Hct MCV 103.6 H MCHC 27.3 L 28.0 L RDW 15.5 H 15.5 H Seg Neutrophils % 80 H 85 H Lymphocytes % 11 L 11 L RBC Morphology Abnormal A Abnormal A Hypochromasia 3+ A Anisocytosis 2+ A Few A Macrocytosis 1+ A Carbon Dioxide POC Total CO2 Anion Gap 7.0 L POC BUN BUN 29 H Creatinine 1.9 H POC Creatinine Glucose 68 L POC Glucose Uric Acid 11.3 H Calcium 8.0 L POC WB Ioniz Calcium Troponin T NT-Pro-B Natriuret Pep Total Protein Albumin 2.2 L Globulin Albumin/Globulin Ratio 0.6 L Procalcitonin Urine Appearance Urine Protein Urine Glucose (UA) Ur Leukocyte Esterase Urine RBC Urine WBC Hyaline Casts Urine Mucus 02/01/21 01/31/21 01/31/21 05:24 08:00 08:00 RBC Hgb Hct POC Hct 27 L MCV MCHC RDW Seg Neutrophils % Lymphocytes % RBC Morphology Hypochromasia Anisocytosis Macrocytosis Carbon Dioxide 31 H POC Total CO2 32 H Anion Gap 7.0 L POC BUN 31 H BUN 28 H Creatinine 1.8 H POC Creatinine 2.0 H Glucose 111 H POC Glucose 124 H Uric Acid 10.6 H Calcium 7.6 L POC WB Ioniz Calcium 1.07 L Troponin T 0.04 H* NT-Pro-B Natriuret Pep Total Protein 5.8 L Albumin 2.3 L Globulin Albumin/Globulin Ratio 0.7 L Procalcitonin Urine Appearance Urine Protein Urine Glucose (UA) Ur Leukocyte Esterase Urine RBC Urine WBC Hyaline Casts Urine Mucus 01/30/21 01/30/21 01/30/21 22:52 14:28 14:08 RBC Hgb Hct POC Hct MCV MCHC RDW Seg Neutrophils % Lymphocytes % RBC Morphology Hypochromasia Anisocytosis Macrocytosis Carbon Dioxide POC Total CO2 Anion Gap POC BUN BUN Creatinine POC Creatinine Glucose POC Glucose Uric Acid Calcium POC WB Ioniz Calcium Troponin T 0.04 H* NT-Pro-B Natriuret Pep 36883.0 H Total Protein Albumin Globulin Albumin/Globulin Ratio Procalcitonin Urine Appearance Hazy A Urine Protein 100 A Urine Glucose (UA) 50 A Ur Leukocyte Esterase 75 A Urine RBC > 182 H Urine WBC 18 H Hyaline Casts 7 H Urine Mucus Few A 01/30/21 01/30/21 14:08 14:08 RBC Hgb Hct POC Hct MCV MCHC RDW Seg Neutrophils % Lymphocytes % RBC Morphology Hypochromasia Anisocytosis Macrocytosis Carbon Dioxide POC Total CO2 Anion Gap POC BUN BUN 31 H Creatinine 1.9 H POC Creatinine Glucose 155 H POC Glucose Uric Acid Calcium 8.4 L POC WB Ioniz Calcium Troponin T NT-Pro-B Natriuret Pep Total Protein Albumin 2.8 L Globulin 4.0 H Albumin/Globulin Ratio 0.7 L Procalcitonin 0.25 H Urine Appearance Urine Protein Urine Glucose (UA) Ur Leukocyte Esterase Urine RBC Urine WBC Hyaline Casts Urine Mucus Meds: Medications Acetaminophen (Acetaminophen 325 Mg Tablet) 650 mg PO Q6HP PRN; Protocol PRN Reason: Per Pain Protocol/Fever > 101 Aspirin (Aspirin 325 Mg Enteric Coated Tablet) 325 mg PO DAILY [facility] Last Admin: 02/02/21 10:07 Dose: 325 mg Documented by: Atorvastatin Calcium (Atorvastatin 10 Mg Tablet) 10 mg PO QHS [facility] Last Admin: 02/01/21 20:42 Dose: 10 mg Documented by: Bisoprolol Fumarate (Bisoprolol 5 Mg Tablet) 5 mg PO DAILY [facility] Last Admin: 02/02/21 10:07 Dose: 5 mg Documented by: Dextrose (Dextrose 50% 50 Ml Vial) 0 ml IV UD PRN PRN Reason: Hypoglycemia Diagnostic Test (Pha) (Accu-Chek 1 Each Strip) 1 each FS [facility] Last Admin: 02/02/21 13:39 Dose: 1 each Documented by: Docusate Sodium (Docusate Sodium 100 Mg Capsule) 100 mg PO BID [facility] Last Admin: 02/02/21 10:07 Dose: 100 mg Documented by: Furosemide (Furosemide 40 Mg/4 Ml Vial) 80 mg IV Q8 [facility] Last Admin: 02/02/21 13:58 Dose: 80 mg Documented by: Glucose (Dextrose 31 Gm Oral.Susp) 15 gm PO PRN PRN PRN Reason: Hypoglycemia Heparin Sodium (Porcine) (Heparin 5,000 Unit/Ml Vial) 5,000 unit SQ Q12 [facility] Last Admin: 02/02/21 10:07 Dose: 5,000 unit Documented by: Vancomycin HCl 1,500 mg/ (Sodium Chloride) 500 mls @ 333.3 mls/hr IV DAILY [facility] Last Infusion: 02/02/21 11:38 Dose: Infused Documented by: Insulin Glargine (Insulin Glargine, Human 1 Unit/0.01 Ml) 20 unit SQ HS [facility] Last Admin: 02/01/21 20:42 Dose: 20 units Documented by: Insulin Human Lispro (Insulin Lispro 1 Unit/0.01 Ml Unit) 0 unit SQ [facility]; Protocol Last Admin: 02/02/21 13:41 Dose: Not Given Documented by: Melatonin (Melatonin 3 Mg Tablet) 18 mg PO HSP PRN PRN Reason: Insomnia Last Admin: 02/01/21 22:17 Dose: 18 mg Documented by: Ondansetron HCl (Ondansetron 4 Mg/2 Ml Vial) 4 mg IV Q6HP PRN PRN Reason: Nausea And Vomiting Senna (Sennosides 1 Tablet) 2 tab PO [facility] Last Admin: 02/01/21 20:41 Dose: Not Given Documented by: Sodium Chloride (0.9 % Sodium Chloride 10 Ml Syringe) 10 ml IV Q8 [facility] Last Admin: 02/02/21 13:58 Dose: 10 ml Documented by: Spironolactone (Spironolactone 25 Mg Tablet) 50 mg PO DAILY [facility] Last Admin: 02/02/21 10:07 Dose: 50 mg Documented by: Tamsulosin HCl (Tamsulosin 0.4 Mg Capsule) 0.4 mg PO [facility] Last Admin: 02/01/21 20:42 Dose: 0.4 mg Documented by: Vancomycin HCl (Vancomycin Per Pharmacy) 1 order IV UD [facility]; Protocol A/P Narrative A/P Narrative: Assessment: 65 year old male with a history of combined systolic and diastolic heart failure, CKD stage III, type 2 diabetes mellitus, right BKA, obesity who was recently hospitalized at [facility] and discharged on 01/26/2021 after being treated for acute on chronic congestive heart failure now readmitted for acute on chronic heart failure and a left thigh abscess. #Acute on chronic combined systolic and diastolic heart failure -LVEF 20 to 25% -Grade 2 diastolic dysfunction #Left thigh cellulitis and abscess -Status post I&D 01/31/2020 -Culture growing staph #Contaminated urine culture growing multidrug resistant Proteus. #Mildly elevated troponin -secondary to heart failure #CKD stage 3 #Diabetes mellitus type 2 #Obesity #Barney catheter placed during recent hospitalization #History of right BKA #Generalized weakness Plan -Lasix 80mg IV 3 times daily for now, follow I&O, daily weights. -Monitor renal function and electrolytes. -Continue home bisoprolol and spironolactone, holding home Entresto and torsemide for now. -ECHO results pending. -Cefazolin IV Q8 hrs for now, could transition to oral abx soon. -Follow-up blood cultures. -Demarcate and follow cellulitis. -Lantus and SSI-med. -Continue home statin and aspirin. -Sodium restriction. -PT and OT consult. -Wound care for abscess. -Replace barney catheter and repeat UA. -Remove barney when able. -DVT PPx: Heparin SQ -CODE STATUS: DNR -Disposition: Probably SNF. Time Spent With Patient Time: Total time spent is greater than 50% in coordination of care (as documented) at patient's floor/unit and/or counseling patient: QUALITY VTE Deep Vein Thrombosis/Pulmonary Embolism Present on Admission: No
[2021-02-02] MEDS ORDERED: ceFAZolin 2 GM in DEXTROSE 5% IN WATER 50 ML IV SCH (15:45)
[2021-02-02] MEDS: ceFAZolin 1 GM VIAL IV SCH ×2 (17:38→21:59)
[2021-02-02 19:46] LABS: Appearance,Urine HAZY (Clear); Bilirubin,Urine Negative (Negative); Color,Urine YELLOW; Culture Indicated,Urine No; Glucose,Urine (UA) Negative (Negative); Ketones,Urine Negative (Negative); Leukocyte Esterase,Urine 75 /uL (Negative); Mucus,Urine FEW /hpf; Nitrate,Urine Negative (Negative); Protein,Urine 30 mg/dL (Negative); Specific Gravity,Urine 1.008 (1.000-1.035); Urine Broad Cast 1 /lph (0-0); Urine Hyaline Cast 41 /lph (0-2); Urine RBC 22 /hpf (0-3); Urine Squamous Epithelial Cell 2 /hpf (0-4); Urine WBC 5 /hpf (0-4); Urobilinogen,Urine Negative
[2021-02-02] MEDS: ATORVASTATIN 10 MG TABLET PO SCH (20:47)
[2021-02-02] MEDS: SENNOSIDES 1 TABLET PO SCH (20:47)
[2021-02-02] MEDS: TAMSULOSIN 0.4 MG CAPSULE PO SCH (20:47)
[2021-02-02] MEDS: INSULIN GLARGINE, HUMAN 1 UNIT/0.01 ML SQ SCH (20:48)
[2021-02-02] MEDS: MELATONIN 3 MG TABLET PO PRN (22:00)
[2021-02-03] MEDS: ceFAZolin 1 GM VIAL IV SCH ×3 (05:54→21:23)
[2021-02-03] MEDS: 0.9 % SODIUM CHLORIDE 10 ML SYRINGE IV SCH ×3 (05:54→20:41)
[2021-02-03] MEDS: FUROSEMIDE 40 MG/4 ML VIAL IV SCH ×2 (05:54→20:41)
[2021-02-03 08:10] LABS: ALT/SGPT 6 U/L (<40); AST/SGOT 11 U/L (<40); Albumin 2.5 gm/dL (3.2-5.2); Albumin/Globulin Ratio 0.7 (1.0-2.3); Alkaline Phosphatase 84 U/L (39-117); Bilirubin,Direct < 0.2 mg/dL (0-0.3); Bilirubin,Total < 0.2 mg/dL (0.1-1.0); Blood Urea Nitrogen 29 mg/dL (8-23); Calcium 7.9 mg/dL (8.6-10.4); Carbon Dioxide 33 mmol/L (22-30); Chloride 105 mmol/L (96-108); Globulin 3.7 gm/dL (2.2-3.7); Glomerular Filtration Rate 36; Glucose 88 mg/dL (70-105); Lactate Dehydrogenase 155 U/L (135-225); Phosphorous 3.5 mg/dL (2.5-4.5); Triglycerides 66 mg/dL (<150); Uric Acid 11.7 mg/dL (2.5-8.0)
[2021-02-03] MEDS: SPIRONOLACTONE 25 MG TABLET PO SCH (08:27)
[2021-02-03] MEDS: BISOPROLOL 5 MG TABLET PO SCH (08:27)
[2021-02-03] MEDS: ASPIRIN 325 MG ENTERIC COATED TABLET PO SCH (08:27)
[2021-02-03] MEDS: HEPARIN 5,000 UNIT/ML VIAL SQ SCH ×2 (08:27→20:41)
[2021-02-03] MEDS: INSULIN LISPRO 1 UNIT/0.01 ML UNIT SQ SCH ×4 (08:28→20:42)
[2021-02-03] MEDS: DOCUSATE SODIUM 100 MG CAPSULE PO SCH ×2 (08:28→20:40)
[2021-02-03] MEDS ORDERED: METOLAZONE 2.5 MG TABLET PO ONE (11:17)
[2021-02-03] MEDS: DIAZEPAM 2 MG TABLET PO PRN (13:10)
--- NOTE | 2021-02-03 14:05 | Internal Med Progress Note ---
SUBJECTIVE Subjective Patient information: Note initiated : 02/03/21 at 2:02 pm Service Date, if different from initiated Date: [] Patient: Florencio Grace 65 y/o M admitted on 01/31/21 for Leg pain. Chief Complaint: [] Interval history: Mr. Grace is a 65 year old male with a history of combined systolic and diastolic heart failure, CKD stage III, type 2 diabetes mellitus, right BKA, obesity who was recently hospitalized for cute on chronic heart failure. The patient was recommended to do rehab in [facility] facility however decided to go home instead. The patient did poorly at home, developed left thigh redness and swelling and return to the ED with abscess and cellulitis of the left thigh and acute on chronic heart failure. Hospital medicine was asked to admit the patient however recommended transferring the patient to a higher level of care. Multiple attempts were made to transfer the patient however no beds were available therefore hospital medicine admitted the patient to [facility]. In the ED, the patient had an I&D of the left thigh abscess with cultures taken. Patient was started on vancomycin IV and diuretics for acute on chronic heart failure. Patient is requiring 2 L/min oxygen via nasal cannula in the ED. Per the records, the patient was discharged on oxygen recent hospitalization however had not required oxygen supplementation prior to that hospitalization. 02/01: No major events overnight, renal function slightly improved, increased lasix to 80 mg IV TID, monitoring diuresis and renal function, Dr. Stephens following for left thigh wound, TTE results pending. 02/02: No major events overnight, diuresing well, abscess cultures grew MSSA, discontinued Vancomycin IV and started Cefazolin. 02/03: Continues to diurese with Lasix IV, sodium trended up to 149 so decreased lasix from 80 mg IV TID to BID. Renal function stable. Cellulitis improving, incision site for abscess improving. Continues on Cefazolin for MSSA positive abscess culture. Physical exam General: 65-year-old chronically appearing male in no apparent distress Head: Atraumatic, normal inspection. Eyes: normal appearance, no scleral icterus. Neck: full ROM Respiratory: Nasal cannula oxygen, bilateral crackles. Cardiovascular: Distant heart sounds, normal rate and rhythm. GI/Abdominal: Obesely distended, soft, nontender, no guarding. Extremities: Right BKA, 3+ pitting edema. Neurological: CN II-XII intact, intact motor, intact sensation. Psychiatric: normal mood. Skin: left thigh redness and tenderness consistent with abscess status post I&D Constitutional Vitals: Vital Signs Temp Pulse Resp BP Pulse Ox 98.4 F 65 18 132/66 96 02/03/21 12:00 02/03/21 12:00 02/03/21 12:00 02/03/21 12:00 02/03/21 12:00 Period Temp Pulse Resp BP Sys/Bush Pulse Ox Last 24 Hr 97.4 F-98.4 F 65-74 18-24 117-138/57-69 91-96 Intake and Output 02/03/21 02/03/21 02/03/21 05:59 13:59 21:59 Intake Total 100 Output Total 375 Balance -275 Intake & Output: Intake & Output 02/03/21 02/03/21 02/03/21 05:59 13:59 21:59 Intake Total 100 Output Total 375 Balance -275 Intake: Oral 100 Output: Urine Catheter Amount 375 Other: Meal Breakfast Percent of Meal Consumed 100% Feeding Ability Independent Urine Appearance Clear Urine Color Bright Yellow Stool Size Large Stool Color Brown Stool Consistency Soft # Bowel Movements 1 OBJ DATA Labs CBC & Chem 7: 02/02/21 06:44 02/03/21 05:41 Labs: Abnormal Lab Results 02/03/21 02/03/21 02/02/21 08:23 05:41 18:41 RBC Hgb Hct MCV MCHC RDW Seg Neutrophils % Lymphocytes % RBC Morphology Hypochromasia Anisocytosis Macrocytosis Sodium 146 H Carbon Dioxide 33 H Anion Gap BUN 29 H Creatinine 1.9 H Glucose Uric Acid 11.7 H Calcium 7.9 L Total Protein Albumin 2.5 L Albumin/Globulin Ratio 0.7 L Urine Appearance Hazy A Urine Protein 30 A Ur Leukocyte Esterase 75 A Urine RBC 22 H Urine WBC 5 H Hyaline Casts 41 H Broad Casts 1 H Urine Mucus Few A Vancomycin Trough 25.9 H* 02/02/21 02/02/21 02/01/21 06:44 06:44 07:56 RBC 3.32 L 3.38 L Hgb 9.4 L 9.4 L Hct 34.4 L 33.6 L MCV 103.6 H MCHC 27.3 L 28.0 L RDW 15.5 H 15.5 H Seg Neutrophils % 80 H 85 H Lymphocytes % 11 L 11 L RBC Morphology Abnormal A Abnormal A Hypochromasia 3+ A Anisocytosis 2+ A Few A Macrocytosis 1+ A Sodium Carbon Dioxide Anion Gap 7.0 L BUN 29 H Creatinine 1.9 H Glucose 68 L Uric Acid 11.3 H Calcium 8.0 L Total Protein Albumin 2.2 L Albumin/Globulin Ratio 0.6 L Urine Appearance Urine Protein Ur Leukocyte Esterase Urine RBC Urine WBC Hyaline Casts Broad Casts Urine Mucus Vancomycin Trough 02/01/21 05:24 RBC Hgb Hct MCV MCHC RDW Seg Neutrophils % Lymphocytes % RBC Morphology Hypochromasia Anisocytosis Macrocytosis Sodium Carbon Dioxide 31 H Anion Gap 7.0 L BUN 28 H Creatinine 1.8 H Glucose 111 H Uric Acid 10.6 H Calcium 7.6 L Total Protein 5.8 L Albumin 2.3 L Albumin/Globulin Ratio 0.7 L Urine Appearance Urine Protein Ur Leukocyte Esterase Urine RBC Urine WBC Hyaline Casts Broad Casts Urine Mucus Vancomycin Trough Meds: Medications Acetaminophen (Acetaminophen 325 Mg Tablet) 650 mg PO Q6HP PRN; Protocol PRN Reason: Per Pain Protocol/Fever > 101 Aspirin (Aspirin 325 Mg Enteric Coated Tablet) 325 mg PO DAILY [facility] Last Admin: 02/03/21 08:27 Dose: 325 mg Documented by: Atorvastatin Calcium (Atorvastatin 10 Mg Tablet) 10 mg PO QHS [facility] Last Admin: 02/02/21 20:47 Dose: 10 mg Documented by: Bisoprolol Fumarate (Bisoprolol 5 Mg Tablet) 5 mg PO DAILY [facility] Last Admin: 02/03/21 08:27 Dose: 5 mg Documented by: Cefazolin Sodium (Cefazolin 1 Gm Vial) 2 gm IV Q8H [facility] Last Admin: 02/03/21 13:34 Dose: 2 gm Documented by: Dextrose (Dextrose 50% 50 Ml Vial) 0 ml IV UD PRN PRN Reason: Hypoglycemia Diagnostic Test (Pha) (Accu-Chek 1 Each Strip) 1 each FS ACHS [facility] Last Admin: 02/03/21 13:11 Dose: 1 each Documented by: Diazepam (Diazepam 2 Mg Tablet) 2 mg PO BIDP PRN PRN Reason: anxiety Last Admin: 02/03/21 13:10 Dose: 2 mg Documented by: Docusate Sodium (Docusate Sodium 100 Mg Capsule) 100 mg PO BID [facility] Last Admin: 02/03/21 08:28 Dose: Not Given Documented by: Furosemide (Furosemide 40 Mg/4 Ml Vial) 80 mg IV Q12 [facility] Glucose (Dextrose 31 Gm Oral.Susp) 15 gm PO PRN PRN PRN Reason: Hypoglycemia Heparin Sodium (Porcine) (Heparin 5,000 Unit/Ml Vial) 5,000 unit SQ Q12 [facility] Last Admin: 02/03/21 08:27 Dose: 5,000 unit Documented by: Insulin Glargine (Insulin Glargine, Human 1 Unit/0.01 Ml) 15 unit SQ [facility] Insulin Human Lispro (Insulin Lispro 1 Unit/0.01 Ml Unit) 0 unit SQ [facility]; Protocol Last Admin: 02/03/21 13:11 Dose: Not Given Documented by: Melatonin (Melatonin 3 Mg Tablet) 18 mg PO HSP PRN PRN Reason: Insomnia Last Admin: 02/02/21 22:00 Dose: 18 mg Documented by: Ondansetron HCl (Ondansetron 4 Mg/2 Ml Vial) 4 mg IV Q6HP PRN PRN Reason: Nausea And Vomiting Senna (Sennosides 1 Tablet) 2 tab PO [facility] Last Admin: 02/02/21 20:47 Dose: Not Given Documented by: Sodium Chloride (0.9 % Sodium Chloride 10 Ml Syringe) 10 ml IV Q8 [facility] Last Admin: 02/03/21 13:35 Dose: 10 ml Documented by: Spironolactone (Spironolactone 25 Mg Tablet) 50 mg PO DAILY [facility] Last Admin: 02/03/21 08:27 Dose: 50 mg Documented by: Tamsulosin HCl (Tamsulosin 0.4 Mg Capsule) 0.4 mg PO [facility] Last Admin: 02/02/21 20:47 Dose: 0.4 mg Documented by: A/P Narrative A/P Narrative: Assessment: 65 year old male with a history of combined systolic and diastolic heart failure, CKD stage III, type 2 diabetes mellitus, right BKA, obesity who was recently hospitalized at [facility] and discharged on 01/26/2021 after being treated for acute on chronic congestive heart failure now readmitted for acute on chronic heart failure and a left thigh abscess. #Acute on chronic combined systolic and diastolic heart failure -LVEF 20 to 25% -Grade 2 diastolic dysfunction #Left thigh cellulitis and abscess -Status post I&D 01/31/2020 -Culture grew MSSA #Mildly elevated troponin -secondary to heart failure #CKD stage 3 #Diabetes mellitus type 2 #Obesity #Barney catheter -replaced 02/02 #History of right BKA #Generalized weakness #Right BKA Plan -Lasix 80mg IV BID, follow I&O, daily weights. -Metolazone 2.5 mg once. -Monitor renal function and electrolytes. -Continue home bisoprolol and spironolactone, holding home Entresto and torsemide for now. -ECHO results pending. -Cefazolin IV Q8 hrs for now, could transition to oral abx soon. -Blood cultures-NGTD. -Lantus and SSI-med. -Continue home statin and aspirin. -Sodium restriction. -PT and OT consult. -Wound care for abscess. -Repeat UA w/ reflex. -Remove barney when able. -DVT PPx: Heparin SQ -CODE STATUS: DNR -Disposition: Probably SNF. Time Spent With Patient Time: Total time spent is greater than 50% in coordination of care (as documented) at patient's floor/unit and/or counseling patient: QUALITY VTE Deep Vein Thrombosis/Pulmonary Embolism Present on Admission: No
[2021-02-03] MEDS: SENNOSIDES 1 TABLET PO SCH (20:40)
[2021-02-03] MEDS: TAMSULOSIN 0.4 MG CAPSULE PO SCH (20:40)
[2021-02-03] MEDS: ATORVASTATIN 10 MG TABLET PO SCH (20:40)
[2021-02-03] MEDS: INSULIN GLARGINE, HUMAN 1 UNIT/0.01 ML SQ SCH (20:42)
[2021-02-03] MEDS: MELATONIN 3 MG TABLET PO PRN (21:23)
[2021-02-04] MEDS: 0.9 % SODIUM CHLORIDE 10 ML SYRINGE IV SCH ×3 (06:02→21:22)
[2021-02-04] MEDS: ceFAZolin 1 GM VIAL IV SCH ×2 (06:02→14:23)
[2021-02-04 06:57] LABS: ALT/SGPT < 5 U/L (<40); AST/SGOT 11 U/L (<40); Albumin 2.3 gm/dL (3.2-5.2); Albumin/Globulin Ratio 0.7 (1.0-2.3); Alkaline Phosphatase 77 U/L (39-117); Bilirubin,Direct < 0.2 mg/dL (0-0.3); Bilirubin,Total 0.2 mg/dL (0.1-1.0); Blood Urea Nitrogen 32 mg/dL (8-23); Calcium 7.9 mg/dL (8.6-10.4); Carbon Dioxide 30 mmol/L (22-30); Chloride 104 mmol/L (96-108); Globulin 3.5 gm/dL (2.2-3.7); Glomerular Filtration Rate 28; Glucose 97 mg/dL (70-105); Lactate Dehydrogenase 169 U/L (135-225); Phosphorous 3.3 mg/dL (2.5-4.5); Triglycerides 56 mg/dL (<150); Uric Acid 12.4 mg/dL (2.5-8.0)
[2021-02-04] MEDS: INSULIN LISPRO 1 UNIT/0.01 ML UNIT SQ SCH ×4 (07:39→21:17)
[2021-02-04] MEDS: SPIRONOLACTONE 25 MG TABLET PO SCH (09:04)
[2021-02-04] MEDS: DOCUSATE SODIUM 100 MG CAPSULE PO SCH ×2 (09:05→21:22)
[2021-02-04] MEDS: FUROSEMIDE 40 MG/4 ML VIAL IV SCH ×2 (09:05→21:18)
[2021-02-04] MEDS: ASPIRIN 325 MG ENTERIC COATED TABLET PO SCH (09:05)
[2021-02-04] MEDS: HEPARIN 5,000 UNIT/ML VIAL SQ SCH ×2 (09:05→21:21)
[2021-02-04] MEDS: BISOPROLOL 5 MG TABLET PO SCH (09:06)
--- NOTE | 2021-02-04 13:25 | General Surgery Progress Note ---
SUBJECTIVE Subjective Patient information: Note initiated : 02/04/21 at 1:20 pm Service Date, if different from initiated Date: [] Patient: Florencio Grace 65 y/o M admitted on 01/31/21 for Leg pain. Chief Complaint: [] Additional PMFSH (Level 3 Only): Patient seen on rounds with Jessica TRAN. He denies any interval changes or symptoms. Wants to get OOB and walk with prosthesis. Constitutional Vitals: Vital Signs Temp Pulse Resp BP Pulse Ox 98.1 F 66 26 H 118/52 93 02/04/21 08:00 02/04/21 08:00 02/04/21 08:00 02/04/21 08:00 02/04/21 08:00 Period Temp Pulse Resp BP Sys/Bush Pulse Ox Last 24 Hr 97.0 F-98.1 F 64-74 16-26 118-144/52-70 92-96 Intake and Output 02/03/21 02/04/21 02/04/21 21:59 05:59 13:59 Intake Total 920 250 450 Output Total 1800 750 Balance -880 -500 450 Weight 323 lb 11.2 oz Intake & Output: Intake & Output 02/03/21 02/04/21 02/04/21 21:59 05:59 13:59 Intake Total 920 250 450 Output Total 1800 750 Balance -880 -500 450 Weight 323 lb 11.2 oz Intake: Oral 520 250 450 GI Tube Flush 400 Output: Urine Catheter Amount 1800 750 Other: Meal Dinner Peaches 1 cup Breakfast Percent of Meal Consumed 75% 100% 100% Feeding Ability Independent Independent Assist with Tray Set Up Urine Appearance Clear Uretheral (Mayo) Clear Urine Color Portia Light Mary Dark Yellow Uretheral (Mayo) Dark Yellow Urine Odor Normal Stool Size Small Small Stool Color Brown Brown Stool Consistency Soft Soft # Bowel Movements 1 1 Exam: AVSS. No changes DIAMOND. L/EL LEFT upper anterior thigh: Resolved inflammatory changes. Packing d/c. Open wound base with demarcating fat. Await wound healing by second intention. A/P Narrative A/P Narrative: Assessment; Satisfactory progress from wound care point of view. OK to get OOB and resume ADL / Ambulate with prosthesis. OK to D/C systemic antibiotics. Needs local wound care. Plan: Local wound care as ordered. If D/C will f/u at clinic in 2 weeks. Time Spent With Patient Time: Total time spent is greater than 50% in coordination of care (as documented) at patient's floor/unit and/or counseling patient: Total time spent with greater than 50% in coordination of care (as documented) at patient's floor/unit and/or counseling patient:: 25 - 35 minutes
--- NOTE | 2021-02-04 15:56 | Internal Med Progress Note ---
SUBJECTIVE Subjective Patient information: Note initiated : 02/04/21 at 3:51 pm Service Date, if different from initiated Date: [] Patient: Florencio Grace a 65 y/o M admitted on 01/31/21 for Leg pain. Chief Complaint: [] Interval history: Mr. Grace is a 65 year old male with a history of combined systolic and diastolic heart failure, CKD stage III, type 2 diabetes mellitus, right BKA, obesity who was recently hospitalized for cute on chronic heart failure. The patient was recommended to do rehab in [place] [facility] facility however decided to go home instead. The patient did poorly at home, developed left thigh redness and swelling and return to the ED with abscess and cellulitis of the left thigh and acute on chronic heart failure. Hospital medicine was asked to admit the patient however recommended transferring the patient to a higher level of care. Multiple attempts were made to transfer the patient however no beds were available therefore hospital medicine admitted the patient to [facility]. In the ED, the patient had an I&D of the left thigh abscess with cultures taken. Patient was started on vancomycin IV and diuretics for acute on chronic heart failure. Patient is requiring 2 L/min oxygen via nasal cannula in the ED. Per the records, the patient was discharged on oxygen recent hospitalization however had not required oxygen supplementation prior to that hospitalization. 02/01: No major events overnight, renal function slightly improved, increased lasix to 80 mg IV TID, monitoring diuresis and renal function, Dr. Stephens following for left thigh wound, TTE results pending. 02/02: No major events overnight, diuresing well, abscess cultures grew MSSA, discontinued Vancomycin IV and started Cefazolin. 02/03: Continues to diurese with Lasix IV, sodium trended up to 146 so decreased lasix from 80 mg IV TID to BID. Renal function stable, ordered metolazone 2.5 mg x1. Cellulitis improving, incision site for abscess improving. Continues on Cefazolin for MSSA positive abscess culture. 02/04: No major events overnight, vitals stable, creatinine increased from 1.9 to 2.3, still volume overloaded, continue Lasix 80 mg IV BID. Thigh wound looks good from Dr. Coreas's perspective, ok to discontinue antibiotics. TTE results available-difficult study due to body habitus and the patient refused Definity contrast so unable to make a comparison with prior ECHO. Physical exam General: 65-year-old chronically appearing male in no apparent distress Head: Atraumatic, normal inspection. Eyes: normal appearance, no scleral icterus. Neck: full ROM Respiratory: Nasal cannula oxygen, bilateral crackles. Cardiovascular: Distant heart sounds, normal rate and rhythm. GI/Abdominal: Obesely distended, soft, nontender, no guarding. Extremities: Right BKA, 3+ pitting edema. Neurological: CN II-XII intact, intact motor, intact sensation. Psychiatric: normal mood. Skin: left thigh redness resolved Constitutional Vitals: Vital Signs Temp Pulse Resp BP Pulse Ox 97.0 F 86 24 H 138/64 98 02/04/21 12:00 02/04/21 12:00 02/04/21 12:00 02/04/21 12:00 02/04/21 12:00 Period Temp Pulse Resp BP Sys/Bush Pulse Ox Last 24 Hr 97.0 F-98.1 F 64-86 16-26 118-144/52-70 92-98 Intake and Output 02/04/21 02/04/21 02/04/21 05:59 13:59 21:59 Intake Total 250 450 Output Total 750 Balance -500 450 Intake & Output: Intake & Output 02/04/21 02/04/21 02/04/21 05:59 13:59 21:59 Intake Total 250 450 Output Total 750 Balance -500 450 Intake: Oral 250 450 Output: Urine Catheter Amount 750 Other: Meal Peaches 1 cup Breakfast Percent of Meal Consumed 100% 100% Feeding Ability Independent Assist with Tray Set Up Urine Appearance Clear Urine Color Light Mary Dark Yellow Urine Odor Normal Stool Size Small Small Stool Color Brown Brown Stool Consistency Soft Soft # Bowel Movements 1 1 OBJ DATA Labs CBC & Chem 7: 02/02/21 06:44 02/04/21 05:38 Labs: Abnormal Lab Results 02/04/21 02/03/21 02/03/21 05:38 08:23 05:41 RBC Hgb Hct MCV MCHC RDW Seg Neutrophils % Lymphocytes % RBC Morphology Hypochromasia Anisocytosis Macrocytosis Sodium 146 H Carbon Dioxide 33 H Anion Gap BUN 32 H 29 H Creatinine 2.3 H 1.9 H Glucose Uric Acid 12.4 H 11.7 H Calcium 7.9 L 7.9 L Total Protein 5.8 L Albumin 2.3 L 2.5 L Albumin/Globulin Ratio 0.7 L 0.7 L Urine Appearance Urine Protein Ur Leukocyte Esterase Urine RBC Urine WBC Hyaline Casts Broad Casts Urine Mucus Vancomycin Trough 25.9 H* 02/02/21 02/02/21 02/02/21 18:41 06:44 06:44 RBC 3.32 L Hgb 9.4 L Hct 34.4 L MCV 103.6 H MCHC 27.3 L RDW 15.5 H Seg Neutrophils % 80 H Lymphocytes % 11 L RBC Morphology Abnormal A Hypochromasia 3+ A Anisocytosis 2+ A Macrocytosis 1+ A Sodium Carbon Dioxide Anion Gap 7.0 L BUN 29 H Creatinine 1.9 H Glucose 68 L Uric Acid 11.3 H Calcium 8.0 L Total Protein Albumin 2.2 L Albumin/Globulin Ratio 0.6 L Urine Appearance Hazy A Urine Protein 30 A Ur Leukocyte Esterase 75 A Urine RBC 22 H Urine WBC 5 H Hyaline Casts 41 H Broad Casts 1 H Urine Mucus Few A Vancomycin Trough Meds: Medications Acetaminophen (Acetaminophen 325 Mg Tablet) 650 mg PO Q6HP PRN; Protocol PRN Reason: Per Pain Protocol/Fever > 101 Aspirin (Aspirin 325 Mg Enteric Coated Tablet) 325 mg PO DAILY [facility] Last Admin: 02/04/21 09:05 Dose: 325 mg Documented by: Atorvastatin Calcium (Atorvastatin 10 Mg Tablet) 10 mg PO QHS [facility] Last Admin: 02/03/21 20:40 Dose: 10 mg Documented by: Bisoprolol Fumarate (Bisoprolol 5 Mg Tablet) 5 mg PO DAILY [facility] Last Admin: 02/04/21 09:06 Dose: 5 mg Documented by: Cefazolin Sodium (Cefazolin 1 Gm Vial) 2 gm IV Q8H [facility] Last Admin: 02/04/21 14:23 Dose: 2 gm Documented by: Dextrose (Dextrose 50% 50 Ml Vial) 0 ml IV UD PRN PRN Reason: Hypoglycemia Diagnostic Test (Pha) (Accu-Chek 1 Each Strip) 1 each FS ACHS [facility] Last Admin: 02/04/21 12:12 Dose: 1 each Documented by: Diazepam (Diazepam 2 Mg Tablet) 2 mg PO BIDP PRN PRN Reason: anxiety Last Admin: 02/03/21 13:10 Dose: 2 mg Documented by: Docusate Sodium (Docusate Sodium 100 Mg Capsule) 100 mg PO BID [facility] Last Admin: 02/04/21 09:05 Dose: Not Given Documented by: Furosemide (Furosemide 40 Mg/4 Ml Vial) 80 mg IV Q12 [facility] Last Admin: 02/04/21 09:05 Dose: 80 mg Documented by: Glucose (Dextrose 31 Gm Oral.Susp) 15 gm PO PRN PRN PRN Reason: Hypoglycemia Heparin Sodium (Porcine) (Heparin 5,000 Unit/Ml Vial) 5,000 unit SQ Q12 [facility] Last Admin: 02/04/21 09:05 Dose: 5,000 unit Documented by: Insulin Glargine (Insulin Glargine, Human 1 Unit/0.01 Ml) 15 unit SQ [facility] Last Admin: 02/03/21 20:42 Dose: 15 units Documented by: Insulin Human Lispro (Insulin Lispro 1 Unit/0.01 Ml Unit) 0 unit SQ [facility]; Protocol Last Admin: 02/04/21 12:12 Dose: Not Given Documented by: Melatonin (Melatonin 3 Mg Tablet) 18 mg PO HSP PRN PRN Reason: Insomnia Last Admin: 02/03/21 21:23 Dose: 18 mg Documented by: Ondansetron HCl (Ondansetron 4 Mg/2 Ml Vial) 4 mg IV Q6HP PRN PRN Reason: Nausea And Vomiting Senna (Sennosides 1 Tablet) 2 tab PO [facility] Last Admin: 02/03/21 20:40 Dose: Not Given Documented by: Sodium Chloride (0.9 % Sodium Chloride 10 Ml Syringe) 10 ml IV Q8 [facility] Last Admin: 02/04/21 14:23 Dose: 10 ml Documented by: Spironolactone (Spironolactone 25 Mg Tablet) 50 mg PO DAILY [facility] Last Admin: 02/04/21 09:04 Dose: 50 mg Documented by: Tamsulosin HCl (Tamsulosin 0.4 Mg Capsule) 0.4 mg PO [facility] Last Admin: 02/03/21 20:40 Dose: 0.4 mg Documented by: A/P Narrative A/P Narrative: Assessment: 65 year old male with a history of combined systolic and diastolic heart failure, CKD stage III, type 2 diabetes mellitus, right BKA, obesity who was recently hospitalized at [facility] and discharged on 01/26/2021 after being treated for acute on chronic congestive heart failure now readmitted for acute on chronic heart failure and a left thigh abscess. #Acute on chronic combined systolic and diastolic heart failure -LVEF 20 to 25% -Grade 2 diastolic dysfunction #Left thigh cellulitis and abscess -Status post I&D 01/31/2020 -Culture grew MSSA -Resolved cellulitis, completed antibiotic treatment #Mildly elevated troponin -secondary to heart failure #CKD stage 3 #Diabetes mellitus type 2 #Obesity #Barney catheter -replaced 02/02 #History of right BKA #Generalized weakness #Right BKA #Guarded prognosis Plan -Lasix 80mg IV BID, follow I&O, daily weights. -Monitor renal function and electrolytes. -Continue home bisoprolol, holding home torsemide, spironolactone and Entresto for now. -Discontinued Cefazolin, completed short course of treatment. -Blood cultures-NGTD. -Lantus and SSI-med. -Continue home statin and aspirin. -Sodium restriction. -PT and OT consult. -Wound care -Remove barney when able. -DVT PPx: Heparin SQ -CODE STATUS: DNR -Disposition: Probably SNF. Time Spent With Patient Time: Total time spent is greater than 50% in coordination of care (as documented) at patient's floor/unit and/or counseling patient: QUALITY VTE Deep Vein Thrombosis/Pulmonary Embolism Present on Admission: No
[2021-02-04] MEDS ORDERED: CEPHALEXIN 500 MG CAPSULE PO SCH (17:00)
[2021-02-04] MEDS: DIAZEPAM 2 MG TABLET PO PRN (21:16)
[2021-02-04] MEDS: MELATONIN 3 MG TABLET PO PRN (21:16)
[2021-02-04] MEDS: TAMSULOSIN 0.4 MG CAPSULE PO SCH (21:17)
[2021-02-04] MEDS: INSULIN GLARGINE, HUMAN 1 UNIT/0.01 ML SQ SCH (21:18)
[2021-02-04] MEDS: SENNOSIDES 1 TABLET PO SCH (21:22)
[2021-02-04] MEDS: ATORVASTATIN 10 MG TABLET PO SCH (21:24)
[2021-02-05 06:57] LABS: Basophils # (Auto) 0.05 K/mcL (0.00-0.30); Basophils % (Auto) 0.7 % (0.0-2.0); Eosinophils # (Auto) 0.17 K/mcL (0.00-0.70); Eosinophils % (Auto) 2.4 % (0.0-7.0); Hematocrit 29.9 % (40.1-51.0); Hemoglobin 8.9 g/dL (13.7-17.5); Lymphocytes # (Auto) 0.64 K/mcL (1.50-4.80); Mean Cell Volume 96.8 fL (80.0-100.0); Mean Corpuscular HGB Conc 29.8 g/dL (31.0-36.0); Mean Platelet Volume 10.3 fL (7.4-10.4); Monocytes # (Auto) 0.68 K/mcL (0.10-0.90); Monocytes % (Auto) 9.6 % (1.0-12.0); Neutrophils % (Auto) 78.3 % (38.0-78.0); Platelet Count 143 K/mcL (140-440); RBC 3.09 M/mcL (4.63-6.08); Red Cell Distribution Width 15.6 % (11.5-14.5); WBC 7.1 K/mcL (4.5-11.0)
[2021-02-05 07:23] LABS: Albumin 2.3 gm/dL (3.2-5.2); Blood Urea Nitrogen 35 mg/dL (8-23); Carbon Dioxide 33 mmol/L (22-30); Chloride 103 mmol/L (96-108); Glomerular Filtration Rate 25; Glucose 87 mg/dL (70-105); Phosphorous 3.4 mg/dL (2.5-4.5)
[2021-02-05] MEDS: 0.9 % SODIUM CHLORIDE 10 ML SYRINGE IV SCH (08:09)
[2021-02-05] MEDS: INSULIN LISPRO 1 UNIT/0.01 ML UNIT SQ SCH ×2 (08:09→11:31)
[2021-02-05] MEDS: BISOPROLOL 5 MG TABLET PO SCH (08:51)
[2021-02-05] MEDS: DOCUSATE SODIUM 100 MG CAPSULE PO SCH (08:51)
[2021-02-05] MEDS: ASPIRIN 325 MG ENTERIC COATED TABLET PO SCH (08:51)
[2021-02-05] MEDS: HEPARIN 5,000 UNIT/ML VIAL SQ SCH (08:51)
--- NOTE | 2021-02-05 12:08 | Discharge Summary ---
Discharge Provider Provider Patient information: Note initiated : 02/05/21 at 12:03 pm Service Date, if different from initiated Date: [] Patient: Florencio Grace 65 y/o M admitted on 01/31/21 for Leg pain. Chief Complaint: [] Date of admission: 01/31/21 16:22 Discharge date: 02/05/21 Primary care physician: Ariana Dai Consults: 01/30/21 Consult to Physician [CONS] Stat Comment: Consulting Provider: Yeyo Murillo Reason For Exam: Physician to Consult 02/01/21 08:50 Consult to Physician [CONS] Routine Comment: left thigh abscess Consulting Provider: Jerzy Michelle Reason For Exam: Physician to Consult Discharge Meds Discharge Medications Home Medications tamsulosin 0.4 mg PO HS 03/08/18 [History Confirmed 01/30/21 Last Taken 10/23/19 21:00] spironolactone 50 mg tablet 50 mg PO QAM 05/05/19 [History Confirmed 01/30/21 Last Taken 10/23/19 08:00] bisoprolol fumarate 5 mg PO DAILY 06/15/19 [History Confirmed 01/30/21 Last Taken 10/23/19 08:00] atorvastatin 10 mg PO QHS 10/24/19 [History Confirmed 01/30/21 Last Taken 10/23/19 21:00] insulin glargine 100 unit/mL subcutaneous solution 20 unit SUB-Q HS unit 11/30/19 [History Confirmed 01/30/21 Last Taken Unknown] ferrous sulfate 325 mg (65 mg iron) tablet,delayed release 325 mg PO BID 02/29/20 [History Confirmed 01/30/21 Last Taken Unknown] sacubitril 24 mg-valsartan 26 mg tablet 1 tab PO HS 09/13/20 [History Confirmed 01/30/21 Last Taken Unknown] melatonin 20 mg PO QHS PRN 01/22/21 [History Confirmed 01/30/21 Last Taken Unknown] torsemide 40 mg PO QDAY 01/23/21 [History Confirmed 01/30/21 Last Taken Unknown] Triple Antibiotic 1 dose TOPICAL BID #1 ea 01/26/21 [Rx Confirmed 01/30/21 Last Taken Unknown] COURSE Hospital Course Hospital course: Mr. Grace is a 65 year old male with a history of combined systolic and diastolic heart failure, CKD stage III, type 2 diabetes mellitus, right BKA, obesity who was recently hospitalized for cute on chronic heart failure. The patient was recommended to do rehab in shelter facility however decided to go home instead. The patient did poorly at home, developed left thigh redness and swelling and return to the ED with abscess and cellulitis of the left thigh and acute on chronic heart failure. Hospital medicine was asked to admit the patient however recommended transferring the patient to a higher level of care. Multiple attempts were made to transfer the patient however no beds were available therefore hospital medicine admitted the patient to [facility]. In the ED, the patient had an I&D of the left thigh abscess with cultures taken. Patient was started on vancomycin IV and diuretics for acute on chronic heart failure. Patient is requiring 2 L/min oxygen via nasal cannula in the ED. Per the records, the patient was discharged on oxygen recent hospitalization however had not required oxygen supplementation prior to that hospitalization. 02/01: No major events overnight, renal function slightly improved, increased lasix to 80 mg IV TID, monitoring diuresis and renal function, Dr. Stephens following for left thigh wound, TTE results pending. 02/02: No major events overnight, diuresing well, abscess cultures grew MSSA, discontinued Vancomycin IV and started Cefazolin. 02/03: Continues to diurese with Lasix IV, sodium trended up to 146 so decreased lasix from 80 mg IV TID to BID. Renal function stable, ordered metolazone 2.5 mg x1. Cellulitis improving, incision site for abscess improving. Continues on Cefazolin for MSSA positive abscess culture. 02/04: No major events overnight, vitals stable, creatinine increased from 1.9 to 2.3, still volume overloaded, continue Lasix 80 mg IV BID. Thigh wound looks good from Dr. Coreas's perspective, ok to discontinue antibiotics. TTE results available-difficult study due to body habitus and the patient refused Definity contrast so unable to make a comparison with prior ECHO. 02/05: Creatinine trended up to 2.5, discontinued IV lasix. The patient is still severely hypervolemic but will probably not tolerated further diuresis due to cardiorenal physiology. Discharged to SNF, resumed previous home medications. The patient did not want the barney catheter removed at discharged, requested it be removed in a couple days at the SNF. His thigh wound looks good, cellulitis has resolved. Will follow up in the wound care clinic. Physical exam General: 65-year-old chronically appearing male in no apparent distress Head: Atraumatic, normal inspection. Eyes: normal appearance, no scleral icterus. Neck: full ROM Respiratory: Nasal cannula oxygen, bilateral crackles. Cardiovascular: Distant heart sounds, normal rate and rhythm. GI/Abdominal: Obesely distended, soft, nontender, no guarding. Extremities: Right BKA, 3+ pitting edema. Neurological: CN II-XII intact, intact motor, intact sensation. Psychiatric: normal mood. Skin: left thigh redness resolved Discharge diagnosis: Acute on chronic combined systolic and diastolic heart failure Secondary discharge diagnosis: Left thigh abscess and cellulitis Chronic kidney disease Time Spent with Patient Time attestation: Total time spent providing and/or coordinating discharge services: EXAM Constitutional Vitals: Temp Pulse Resp BP Pulse Ox 97.0 F 59 L 19 129/58 95 02/05/21 11:44 02/05/21 11:44 02/05/21 11:44 02/05/21 11:44 02/05/21 11:44 Discharge Data Data Completed and Pending Labs on day of discharge: Labs from last 24 hours 02/05/21 02/05/21 02/05/21 10:12 05:21 05:21 WBC 7.1 RBC 3.09 L Hgb 9.8 L 8.9 L Hct 29.9 L MCV 96.8 MCH 28.8 MCHC 29.8 L RDW 15.6 H Plt Count 143 MPV 10.3 Neut % (Auto) 78.3 H Lymph % (Auto) 9.0 L [place] % (Auto) 9.6 Eos % (Auto) 2.4 Baso % (Auto) 0.7 Lymph # (Auto) 0.64 L [place] # (Auto) 0.68 Eos # (Auto) 0.17 Baso # (Auto) 0.05 Absolute Neutrophils 5.56 Sodium 142 Potassium 4.4 Chloride 103 Carbon Dioxide 33 H Anion Gap 6.0 L BUN 35 H Creatinine 2.5 H GFR Calculation 25 Glucose 87 Calcium 8.0 L Phosphorus 3.4 Albumin 2.3 L Preliminary micro results at discharge 01/30/21 17:13 Anaerobic Culture - Preliminary Abscess - Left Leg Discharge Plan Patient/Caregiver Discharge Instructions Activity: as per physical therapy Diet: Low Sodium (2gm) and Cardiac Activity Restrictions/Additional Instructions: Remove barney catheter on 02/07. Prescriptions: Continued spironolactone 50 mg tablet 50 mg PO QAM RF: 0 insulin glargine 100 unit/mL solution 20 unit SUB-Q HS RF: 0 ferrous sulfate 325 mg (65 mg iron) tablet,delayed release (DR/EC) 325 mg PO BID RF: 0 Entresto 24-26 mg tablet 1 tab PO HS RF: 0 tamsulosin 0.4 MG capsule 0.4 mg PO HS RF: 0 bisoprolol fumarate 5 MG tablet 5 mg PO DAILY RF: 0 atorvastatin 10 mg Tablet 10 mg PO QHS RF: 0 melatonin 10 mg Tablet 20 mg PO QHS PRN (Reason: Insomnia) RF: 0 torsemide 20 mg Tablet 40 mg PO QDAY RF: 0 Triple Antibiotic 3.5-400-5,000 [id number] Ointment In Packet 1 dose topical BID Qty: 1 RF: 0 Discontinued cephalexin 500 MG capsule 500 mg PO TID 7 Days Qty: 21 RF: 0 Other Ambulatory Orders: Wound Care Instructions (CONT) Location: None Selected Ordered By: Jerzy Michelle OT Discharge Order (Routine) Location: None Selected Ordered By: Yeyo Murillo Physical Therapy at Discharge - General (Routine) Location: None Selected Ordered By: Yeyo Murillo Follow Up Plan Follow up with: Ariana Dai [Primary Care Provider] - Jerzy Michelle MD [Physician] - (follow up at wound clinic in 1 week) Patient Disposition: Xfer SNF Rehab Potential: Undetermined I certify that the patient requires SNF services: Yes Overall status at discharge: patient is not back to baseline Discharge Orders: Discharge Order (Routine); Ordered 02/05/21 Ordered By: Yeyo Murillo QUALITY VTE Deep Vein Thrombosis/Pulmonary Embolism Present on Admission: No
== END 2021-02-05 14:15 | DRG 291 ==
LOC: ED 13:05 → MEDSUR 01-31 16:22
PROVIDERS: ADMIT Internal Medicine; ATTEND Internal Medicine